=== PATIENT | male | born 1965 | race Caucasian/White ===

== ENCOUNTER 2023-02-20 14:19 | Inpatient (IN) | payer OTHER ==
--- OUTSIDE RECORDS SUMMARY | 2023-02-20 14:32 | XMS REPORT | Continuity of Care Document ---
:1965 Author Organization [facility] t Address [address] [place] [address] Care Team Providers Name Role Phone Gena SJGenoveva Primary Care Physician Unavailable KRYSTYNA JOHNSON Attending Clinician Unavailable DAX PRADO Attending Clinician Unavailable LARA ROGERS Attending Clinician Unavailable ROGELIO OJEDA Attending Clinician Unavailable CARLOS NOEL Attending Clinician Unavailable PARRISH HALE Attending Clinician Unavailable LAB90 Attending Clinician Unavailable 1, [facility] TOMOGRAPHY Attending Clinician UnavailLETHA Jones Attending Clinician Unavailable MD CARMENCITA Attending Clinician Unavailable ROBYN CONNELLY Attending Clinician Unavailable Doctor Unassigned, [place] Attending Clinician Unavailable BEVERLY SMITH Attending Clinician Unavailable DIRK BLANC Attending Clinician Unavailable NAOMY CONN Attending Clinician Unavailable [facility] Attending Clinician UnavailLetha Jones MD Attending Clinician [phone] Rogelio Ojeda MD Attending Clinician TOMOGRAPHY, [facility] OPTICAL COHERENCE Attending Clinician UnaDirk Amador MD Attending Clinician LAB47 Attending Clinician Unavailable Krystyna Johnson DO Attending Clinician NATALIE BACA Attending Clinician Unavailable PL, TECH 1 Attending Clinician Unavailable LAWANDA LYLES Attending Clinician Unavailable Lawanda Lyles PA-C Attending Clinician Vazquez MCLAUGHLIN, Domenica Attending Clinician CHELLE CUTLER Attending Clinician Unavailable DOMENICA ARIAS Attending Clinician Unavailable TRED45 Attending Clinician Unavailable SWAB, FBMDC COVID SELF Attending Clinician Unavailable [id number]-LQU Attending Clinician Unavailable NARCISO GUPTA Attending Clinician Unavailable KAYLIE NICOLE Attending Clinician Unavailable Sadie MCLAUGHLIN, Carlos Avendaño Attending Clinician DIANA MARROQUIN Attending Clinician Unavailable GERARDO HALE Attending Clinician Unavailable Payers Payer Name Policy Type Policy Number Effective Date Expiration Date Oziel GILBERT MA DUAL 7 [id number] 2021 COMPLETE CAP(HMO 00:00:00 D-SNP OA) [facility] 6 [id number] 2021 00:00:00 KCA GOLD O 7 [id number] 2020 00:00:00 Problems Condition Condition Condition Status Onset Resolution Last Treating Co mments Source Name Details Category Date Date Treatment Clinician Date Well adult Well adult Disease Active K serenity exam exam 12-16 Seybold 00:00: - 00 Externa l Hypothyroi Hypothyroi Disease Active K serenity dism dism 12-16 Seybold (acquired) (acquired) 00:00: - 00 Externa l Sleep Sleep Disease Active Overview: Yanely apnea apnea 12-16 Formattin Seybold 00:00: g of this - 00 note Externa might be l different from the original. uses cpap Stage 5 Stage 5 Disease Active Overview: Yara ey chronic chronic 12-16 Formattin Seybo ld kidney kidney 00:00: g of this - disease disease 00 note Externa might be l different from the original. Nephrolog y-Dr. 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 3-23 Seybol d mellitus mellitus 00:00: - with with 00 Externa diabetic diabetic l neuropathy neuropathy Morbid Morbid Disease Active Yanely obesity obesity 3-23 Seybold with BMI with BMI 00:00: - of of 00 Externa 45.0-49.9, 45.0-49.9, l adult adult Stage 3a Stage 3a Disease Active Ricardose y chronic chronic 3-11 Seybold kidney kidney 00:00: - disease disease 00 Externa l Type 2 Type 2 Disease Active 2020-06 Yanely diabetes diabetes 0-11 Seybol d mellitus mellitus 00:00: - with stage with stage 00 Ex terna 5 chronic 5 chronic l kidney kidney disease disease not on not on chronic chronic dialysis, dialysis, with with long-term long-term current current use of use of insulin insulin Body mass Body mass Disease Active Ricardo sey index index 9-15 Seybold 40.0-44.9, 40.0-44.9, 00:00: adult adult 00 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 00 Low Pressure Boiler Tender 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, with eyes, with macular macular edema, edema, associated associated with type with type 2 diabetes 2 diabetes mellitus mellitus 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 00: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 both y of both eyes eyes associated associated with type with type 2 diabetes 2 diabetes mellitus mellitus Diabetic Diabetic Disease Active Ricardose y macular macular 9-07 Seybold edema of edema of 00:00: left eye left eye 00 with with retinopath retinopath y y associated associated with type with type 2 diabetes 2 diabetes mellitus mellitus 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 907 Se ybold rative rative 00: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 both y of both eyes eyes associated associated with type with type 2 diabetes 2 diabetes mellitus mellitus Diabetic Diabetic Disease Active [place] y macular macular 9 Seybold edema of edema of 00:00: left eye left eye 00 with with retinopath retinopath y y associated associated with type with type 2 diabetes 2 diabetes mellitus mellitus 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 diabetes 12-28 Seybol d mellitus mellitus 00:00: - with with 00 Externa hyperchole hyperchole l sterolemia sterolemia Essential Essential Disease Active Ricardo sey hypertensi hypertensi 12-28 Se ybold on on 00:00: - 00 Externa l Morbid Morbid Disease Active Yanely obesity obesity 12-28 Seybold 00:00: 00 CKD CKD Disease Active Yanely (chronic (chronic 12-28 Seybol d kidney kidney 00:00: disease) disease) 00 stage 3, stage 3, GFR 30-59 GFR 30-59 ml/min ml/min CHF CHF Disease Active Yanely (congestiv (congestiv 12-28 Se ybold e heart e heart 00:00: - failure) failure) 00 Low Pressure Boiler Tender a l Hypertensi Hypertensi Disease Active K elsey ve heart ve heart 12-28 Seybol d and renal and renal 00:00: - disease disease 00 Externa with with l congestive congestive heart heart failure failure Hyperchole Hyperchole Disease Active K elsey sterolemia sterolemia 12-28 Se ybold 00:00: - 00 Externa l Acute Acute Disease Active 2018-06 [facility] respirator respirator 1-05 [facility] y [facility] y [place] [facility] Morbid Morbid Disease Active 2018-06 [facility] obesity obesity 1-05 ity of 00:00: [place] [facility] Hypertensi Hypertensi Disease Active 2018-06 [facility] n[facility] ve ve 1-05 [place] [place] emergency emergency [place] [facility] Acute Acute Disease Active 2018-06 [facility] diastolic diastolic 105 [facility]y of congestive [place]ive [place] [facility] failure failure Branch KEVIN on KEVIN on Disease Active 2018-06 [facility] CPAP CPAP 1-05 ity of 00:00: [place] 00 [facility] Stage 3 Stage 3 Disease Active 2018-06 [facility] chronic chronic 06-09 ity of kidney kidney 00:00: [place] disease disease Medical [facility] IDDM IDDM Disease Active 2018-06 [facility] (insulin (insulin 06-09 [place] of dependent dependent [place] diabetes 00 Medica l mellitus) mellitus) Bran ch HELEN (acute HELEN (acute Disease Active 2018-06 U nivers kidney kidney 06-09 ity of injury) injury) 00:00: [place] 00 [facility] Morbid Morbid Disease Active 2018-06 [facility] obesity obesity -05 [facility] of with body with body [place] mass [place] mass index 00 Me dical of of Branch 40.0-49.9 40.0-49.9 Allergies, Adverse Reactions, Alerts Allergy Allergy Status Severity Reaction(s) Onset Inactive Treating Comm ents Source Name Type Date Date Clinician NO KNOWN Drug Active Univers ALLERGIE Class ity of [facility] Social History Social Habit Start Date Stop Date Quantity Comments Source Gender identity 2021-05-19 Identifies as male Christos serenity Jarrett 17:46:57 gender (finding) - Low Pressure Boiler Tender al Sexual orientation 2021-05-19 Heterosexual Yara Jarrett 17:46:57 (finding) - External History of tobacco Chews Tobacco Ricardo Jarrett use - External Exposure to Not sure Yanely thomas SARS-CoV-2 (event) Alcohol intake 2023-02-02 2023-02-02 Ex-drinker Yanely taylor 00:00:00 00:00:00 (finding) - External Tobacco use and 2022-12-16 2022-12-16 User of smokeless Ke sandor Jarrett exposure 00:00:00 00:00:00 tobacco - External History of Social 2022-12-16 2022-12-16 Yanely Jarrett function 00:00:00 00:00:00 - External Education 2022-12-16 2022-12-16 13 Yanely Jarrtet 00:00:00 00:00:00 - External Alcohol Comment 2022-12-16 2022-12-16 Quit many years Yara Jarrett 00:00:00 00:00:00 ago, 1997 - External Sex [birth year] At [birth year] M Yanely mathias 00:00:00 00:00:00 - External Smoking Status Start Date Stop Date Source Never smoked tobacco Yanely [place] old - External Ex-smoker 2019-04-09 00:00:00 2019-04-09 00:00:00 [facility] Medications Ordered Filled Start Stop Current Ordering Indication Dosage Frequency Signature Comments Components Source Medication Medication Date Date Medication? Clinician (SIG) Name Name METAMUCIL Yes 2{tbl} Take 2 Yara ey FIBER OR 8-31 tablets by Seybo ld 09:34: mouth 3 - 24 times Externa daily l Turmeric Yes 1{capsu Take 1 Yara ey 500 MG oral 8-31 le} capsule by Se ybold Capsule 09:34: mouth - 24 daily Externa l Cranberry Yes 1{capsu Take 1 Ricardo sey 450 MG oral 8-31 le} capsule by Se ybold Capsule 09:34: mouth 2 - 24 times Externa daily l Cholecalcif Yes 1{capsu Take 1 K elsey lacey 8-31 le} capsule by Seybold (Vitamin 09:34: mouth - D3) 25 MCG 24 daily Externa (1000 UT) l oral Capsule Ferrous Yes 325mg Take 1 Yanely Sulfate 8-31 tablet Seybold (Iron) 325 09:34: (325 mg - (65 Fe) MG 24 total) by Exte rna oral Tablet mouth l daily (with breakfast) . Coenzyme Yes 1{capsu Take 1 Yara ey Q10 (Co 8-31 le} capsule by Seybol d Q-10) 100 09:34: mouth - MG oral 24 daily. Externa Capsule l Pamela, Yes 1{capsu Take 1 Kelse y Zingiber 8-31 le} capsule by Seybo ld officinalis 09:34: mouth - , (Pamela 24 daily. Externa Root) 550 l MG oral Capsule Ginkgo Yes 1{capsu Take 1 Yanely Biloba 120 8-31 le} capsule by Sey bold MG oral 09:34: mouth - Capsule 24 daily. Externa l Magnesium Yes 1{capsu Take 1 Ricardo sey 500 MG oral 8-31 le} capsule by Se ybold Capsule 09:34: mouth - 24 daily. Externa l Magnesium 2022-0 Yes 296mL Take 296 Ricardo sey Citrate 8-31 mL by Seybold oral 09:34: mouth - Solution 24 once. Externa l Multiple 2022-0 Yes [id number] 1{tbl} Take 1 K elsey Vitamin 8-31 tablet by Seybold (MULTI 09:34: mouth - VITAMIN 24 nightly Externa MENS OR) l Sodium 2022-0 Yes 650mg Take 1 Yanely Bicarbonate 8-31 tablet Seybol d 650 MG oral 09:34: (650 mg - Tablet 24 total) by Externa mouth 3 l times daily. predniSONE 2022-0 Yes 1 po tid Ricardo sey (DELTASONE) 8-31 for 7 Seybold 10 MG oral 00:00: days, 1 po - tablet 00 bid for 7 Externa days, 1 po l daily for 7 days, 1 po every other day until finished. Fluocinolon 2022-0 Yes 3 drops Ricardo sey e Acetonide 8-31 each ear Seyb old (DermOtic) 00:00: bid prn. - 0.01 % otic 00 Externa Oil l Magnesium 2022-0 Yes 296mL Take 296 Ricardo sey Citrate 8-28 mL by Seybold oral 08:55: mouth - Solution 31 once. Externa l Multiple 2022-0 Yes [id number] 1{tbl} Take 1 K elsey Vitamin 8-28 tablet by Seybold (MULTI 08:55: mouth - VITAMIN 31 nightly Externa MENS OR) l Sodium 2022-0 Yes 650mg Take 1 Yanely Bicarbonate 8-28 tablet Seybol d 650 MG oral 08:55: (650 mg - Tablet 31 total) by Externa mouth 3 l times daily. METAMUCIL 2022-0 Yes 2{tbl} Take 2 Yara ey FIBER OR 8-28 tablets by Seybo ld 08:55: mouth 3 - 31 times Externa daily l Turmeric 2022-0 Yes 1{capsu Take 1 Yara ey 500 MG oral 8-28 le} capsule by Se ybold Capsule 08:55: mouth - 31 daily Externa l Cranberry 2022-0 Yes 1{capsu Take 1 Ricardo sey 450 MG oral 8-28 le} capsule by Se ybold Capsule 08:55: mouth 2 - 31 times Externa daily l Cholecalcif 2023-0 Yes 1{capsu Take 1 K elsey lacey 8-28 le} capsule by Luiza (Vitamin 08:55: mouth - D3) 25 MCG 31 daily Externa (1000 UT) l oral Capsule Ferrous 2023-0 Yes 325mg Take 1 Yanely Sulfate 8-28 tablet ybold (Iron) 325 08:55: (325 mg - (65 Fe) MG 31 total) by Exte rna oral Tablet mouth l daily (with breakfast) . Allopurinol 2023-0 Yes 100mg TAKE ONE K elsey 100 MG oral 8-25 TABLET BY Sey bold Tablet 00:00: MOUTH - 00 DAILY Externa l Allopurinol 2023-0 Yes 100mg TAKE ONE K elsey 100 MG oral 8-25 TABLET BY Sey bold Tablet 00:00: MOUTH - 00 DAILY Externa l Magnesium 2023-0 Yes 296mL Take 296 Ricardo sey Citrate 8-21 mL by Seybold oral 09:08: mouth - Solution 52 once. Externa l Multiple 3-0 Yes [id number] 1{tbl} Take 1 K elsey Vitamin 8-21 tablet by Luiza (MULTI 09:08: mouth - VITAMIN 52 nightly Externa MENS OR) l Sodium 2023-0 Yes 650mg Take 1 Yanely Bicarbonate 8-21 tablet ybol d 650 MG oral 09:08: (650 mg - Tablet 52 total) by Externa mouth 3 l times daily. METAMUCIL 2023-0 Yes 2{tbl} Take 2 Yara ey FIBER OR 8-21 tablets by Zacheryo ld 09:08: mouth 3 - 52 times Externa daily l Turmeric 2023-0 Yes 1{capsu Take 1 Yara ey 500 MG oral 8-21 le} capsule by Se ybold Capsule 09:08: mouth - 52 daily Externa l Cranberry 2023-0 Yes 1{capsu Take 1 Ricardo sey 450 MG oral 8-21 le} capsule by Se ybold Capsule 09:08: mouth 2 - 52 times Externa daily l Cholecalcif 2023-0 Yes 1{capsu Take 1 K elsey lacey 8-21 le} capsule by Luiza (Vitamin 09:08: mouth - D3) 25 MCG 52 daily Externa (1000 UT) l oral Capsule Ferrous 3-0 Yes 325mg Take 1 Yanely Sulfate 8-21 tablet Seybold (Iron) 325 09:08: (325 mg - (65 Fe) MG 52 total) by Exte rna oral Tablet mouth l daily (with breakfast) . Carvedilol 2022-0 Yes [id number] TAKE ONE Yanely 25 MG oral 7-24 TABLET BY Seyb old Tablet 00:00: MOUTH - 00 TWICE A Externa DAY WITH l MEALS Carvedilol 3-0 Yes [id number] TAKE ONE Yanely 25 MG oral 7-24 TABLET BY Seyb old Tablet 00:00: MOUTH - 00 TWICE A Externa DAY WITH l MEALS Carvedilol 2022-0 Yes [id number] TAKE ONE Yanely 25 MG oral 7-24 TABLET BY Seyb old Tablet 00:00: MOUTH - 00 TWICE A Externa DAY WITH l MEALS Silverthorne-3 2022-0 2023- No [id number] 1{capsu Take 1 Yanely Fatty Acids 7-14 07-14 le} capsule by Oziel macias (Fish Oil 09:19: 00:00 mouth - Concentrate 37 :00 daily Externa ) 300 MG l oral Capsule Ergocalcife 2022-0 2023- No [id number] Take Ricardo sey rol 1.25 MG 7-14 07-14 50,000 Seybo ld (93231 UT) 09:19: 00:00 units by - oral 37 :00 mouth once Externa Capsule a week l Ferrous 2022-0 Yes 325mg Take 1 Yanely Sulfate 7-14 tablet Seybold (Iron) 325 09:07: (325 mg - (65 Fe) MG 04 total) by Exte rna oral Tablet mouth l daily (with breakfast) Cholecalcif 2022-0 Yes 1{capsu Take 1 K elsey lacey 7-14 le} capsule by Seybold (Vitamin 09:06: mouth - D3) 25 MCG 49 daily Externa (1000 UT) l oral Capsule Cranberry 2022-0 Yes 1{capsu Take 1 Ricardo sey 450 MG oral 7-14 le} capsule by Se ybold Capsule 09:06: mouth 2 - 16 times Externa daily l Turmeric 2022-0 Yes 1{capsu Take 1 Yara ey 500 MG oral 7-14 le} capsule by Se ybold Capsule 09:05: mouth - 42 daily Externa l METAMUCIL Yes 2{tbl} Take 2 Yara ey FIBER OR 7-14 tablets by Seybo ld 09:04: mouth 3 - 41 times Externa daily l Amlodipine 2022-0 2022- No 5mg Take 1 Yara ey Besylate 7-14 07-14 tablet (5 Seybo ld (NORVASC) 5 08:48: 00:00 mg total) - MG oral 14 :00 by mouth 2 Low Pressure Boiler Tender a Tablet times l daily Take 2 tabs orally daily Insulin Yes [id number] 75 units Ke lsey Glargine 7-14 SQ nightly Seybo ld (Basaglar 00:00: - KwikPen) 00 Externa 100 UNIT/ML l subcutaneou s Solution Pen-injecto r Insulin Yes [id number] INJECT Yara ey Aspart 7-14 UNDER THE Seybold (NovoLOG) 00:00: SKIN 20 - 100 UNIT/ML 00 UNITS Externa injection THREE l Solution TIMES A DAY BEFORE MAJOR MEALS Ergocalcife Yes [id number] 25156W Take 1 Yanely rol 1.25 MG 7-14 capsule Seybo ld (91506 UT) 00:00: (50,000 - oral 00 units Externa Capsule total) by l mouth once a month Isosorbide Yes [id number] 30mg Take 1 Yanely Mononitrate 7-14 tablet (30 Se ybold CR 30 MG 00:00: mg total) - oral TABLET 00 by mouth Exte rna SR 24 HR daily l Furosemide 0 Yes [id number] 60mg Take 1.5 Yanely 40 MG oral 7-14 tablets Seybol d Tablet 00:00: (60 mg - 00 total) by Externa mouth 2 l times daily Silverthorne-3 Yes [id number] 1{capsu Take 1 K elsey Fatty Acids 7-14 le} capsule by Se ybold (Fish Oil 00:00: mouth 2 - Concentrate 00 times Externa ) 300 MG daily l oral Capsule Insulin Yes [id number] 75 units Ke lsey Glargine 7-14 SQ nightly Seybo ld (Basaglar 00:00: - KwikPen) 00 Externa 100 UNIT/ML l subcutaneou s Solution Pen-injecto r Insulin 2022-0 Yes [id number] INJECT Yara ey Aspart 7-14 UNDER THE Seybold (NovoLOG) 00:00: SKIN 20 - 100 UNIT/ML 00 UNITS Externa injection THREE l Solution TIMES A DAY BEFORE MAJOR MEALS Ergocalcife 2022-0 Yes [id number] Take 1 Yanely rol 1.25 MG 7-14 capsule Seybo ld (44312 UT) 00:00: (50,000 - oral 00 units Externa Capsule total) by l mouth once a month Isosorbide 2023-0 Yes [id number] 30mg Take 1 Yanely Mononitrate 7-14 tablet (30 Se ybold CR 30 MG 00:00: mg total) - oral TABLET 00 by mouth Exte rna SR 24 HR daily l Furosemide 3-0 Yes [id number] 60mg Take 1.5 Yanely 40 MG oral 7-14 tablets Seybol d Tablet 00:00: (60 mg - 00 total) by Externa mouth 2 l times daily [place]orne-3 2022-0 Yes [id number] 1{capsu Take 1 K elsey Fatty Acids 7-14 le} capsule by Se ybold (Fish Oil 00:00: mouth 2 - Concentrate 00 times Externa ) 300 MG daily l oral Capsule Insulin 2022-0 Yes [id number] 75 units Ke lsey Glargine 7-14 SQ nightly Seybo ld (Basaglar 00:00: - KwikPen) 00 Externa 100 UNIT/ML l subcutaneou s Solution Pen-injecto r Insulin 2022-0 Yes [id number] INJECT Yara ey Aspart 7-14 UNDER THE Seybold (NovoLOG) 00:00: SKIN 20 - 100 UNIT/ML 00 UNITS Externa injection THREE l Solution TIMES A DAY BEFORE MAJOR MEALS Ergocalcife 2022-0 Yes [id number] Take 1 Yanely rol 1.25 MG 7-14 capsule Seybo ld (13840 UT) 00:00: (50,000 - oral 00 units Externa Capsule total) by l mouth once a month Isosorbide 2023-0 Yes [id number] 30mg Take 1 Yanely Mononitrate 7-14 tablet (30 Se ybold CR 30 MG 00:00: mg total) - oral TABLET 00 by mouth Exte rna SR 24 HR daily l Furosemide 2023-0 Yes [id number] 60mg Take 1.5 Yanely 40 MG oral 7-14 tablets Seybol d Tablet 00:00: (60 mg - 00 total) by Externa mouth 2 l times daily [place]-3 Yes [id number] 1{capsu Take 1 K elsey Fatty Acids 7-14 le} capsule by Se alexold (Fish Oil 00:00: mouth 2 - Concentrate 00 times Externa ) 300 MG daily l oral Capsule Insulin Yes [id number] 75 units Ke lsey Glargine 7-14 SQ nightly Seybo ld (Basaglar 00:00: - KwikPen) 00 Externa 100 UNIT/ML l subcutaneou s Solution Pen-injecto r Insulin Yes [id number] INJECT Yara ey Aspart 7-14 UNDER THE Seybold (NovoLOG) 00:00: SKIN 20 - 100 UNIT/ML 00 UNITS Externa injection THREE l Solution TIMES A DAY BEFORE MAJOR MEALS Ergocalcife Yes [id number] Take 1 Yanely rol 1.25 MG 7-14 capsule Seybo ld (78005 UT) 00:00: (50,000 - oral 00 units Externa Capsule total) by l mouth once a month Isosorbide Yes [id number] 30mg Take 1 Yanely Mononitrate 7-14 tablet (30 Se ybold CR 30 MG 00:00: mg total) - oral TABLET 00 by mouth Exte rna SR 24 HR daily l Furosemide Yes [id number] 60mg Take 1.5 Yanely 40 MG oral 7-14 tablets Seybol d Tablet 00:00: (60 mg - 00 total) by Externa mouth 2 l times daily [place]-3 Yes [id number] 1{capsu Take 1 K elsey Fatty Acids 7-14 le} capsule by Se ybold (Fish Oil 00:00: mouth 2 - Concentrate 00 times Externa ) 300 MG daily l oral Capsule Zoster Vac 0 2022- No [id number] 50ug Inject 0.5 Yanely Recomb 7-14 08-21 mL (50 mcg Seybol d Adjuvanted 00:00: 00:00 total) - (Shingrix) 00 :00 into the Exter na 50 MCG/0.5 muscle l mL once for 1 Intramuscul dose ar Recon Suspension Azithromyci 2022- No [id number] Take 2 Yanely n 250 MG 12-16 08-21 tablets by Seyb old oral Tablet 00:00: 00:00 mouth on - 00 :00 day 1 then Externa 1 tablet l by mouth daily for 4 days thereafter . Azithromyci 2022- Yes [id number] Take 2 Yanely n 250 MG 12-16 07-20 tablets by Seyb old oral Tablet 00:00: 04:59 mouth on - 00 :00 day 1 then Externa 1 tablet l by mouth daily for 4 days thereafter . Zoster Vac 2022- Yes [id number] 50ug Inject 0.5 Yanely Recomb 12-16 07-15 mL (50 mcg Seybol d Adjuvanted 00:00: 04:59 total) - (Shingrix) 00 :00 into the Exter na 50 MCG/0.5 muscle l mL once for 1 Intramuscul dose ar Recon Suspension Isosorbide 2022- No Yanely Mononitrate 12-1514 Seybold CR 30 MG 00:00: 00:00 - oral TABLET 00 :00 Externa SR 24 HR l Continuous Yes [id number] Check BS Yanely Blood Gluc 5-23 in the am Seyb old Transmit 00:00: fasting, - (Dexcom G5 00 before Externa Mobile meals and l Transmitter as needed. ) does not apply Misc Empaglifloz Yes [id number] 1 tablet Yanely in 5-23 po Q daily Seybold (Jardiance) 00:00: - 10 MG oral 00 Externa Tablet l Gabapentin Yes [id number] 100mg Take 1 Yanely 100 MG oral 5-23 capsule Seybo ld Capsule 00:00: (100 mg - 00 total) by Externa mouth 3 l times daily Insulin Pen Yes [id number] Takes K elsey Needle 31G 5-23 insulin Seybol d X 5 MM does 00:00: QID - not apply 00 Externa Misc l Levothyroxi Yes [id number] 50ug Take 1 Yanely ne Sodium 5-23 tablet (50 Seyb old 50 MCG oral 00:00: mcg total) - Tablet 00 by mouth Externa daily l Pravastatin 2022-0 Yes [id number] 40mg Take 1 Yanely Sodium 40 5-23 tablet (40 Seyb old MG oral 00:00: mg total) - Tablet 00 by mouth Externa nightly AT l BEDTIME Continuous 0 Yes [id number] Check BS Yanely Blood Gluc 5-23 in the am Seyb old Transmit 00:00: fasting, - (Dexcom G5 00 before Externa Mobile meals and l Transmitter as needed. ) does not apply Misc Empaglifloz 0 Yes [id number] 1 tablet Yanely in 5-23 po Q daily Seybold (Jardiance) 00:00: - 10 MG oral 00 Externa Tablet l Gabapentin 0 Yes [id number] 100mg Take 1 Yanely 100 MG oral 5-23 capsule Seybo ld Capsule 00:00: (100 mg - 00 total) by Externa mouth 3 l times daily Insulin Pen 0 Yes [id number] Takes K elsey Needle 31G 5-23 insulin Seybol d X 5 MM does 00:00: QID - not apply 00 Externa Misc l Levothyroxi 0 Yes [id number] 50ug Take 1 Yanely ne Sodium 5-23 tablet (50 Seyb old 50 MCG oral 00:00: mcg total) - Tablet 00 by mouth Externa daily l Pravastatin 0 Yes [id number] 40mg Take 1 Yanely Sodium 40 5-23 tablet (40 Seyb old MG oral 00:00: mg total) - Tablet 00 by mouth Externa nightly AT l BEDTIME Continuous 0 Yes [id number] Check BS Yanely Blood Gluc 5-23 in the am Seyb old Transmit 00:00: fasting, - (Dexcom G5 00 before Externa Mobile meals and l Transmitter as needed. ) does not apply Misc Empaglifloz 2022-0 Yes [id number] 1 tablet Yanely in 5-23 po Q daily Seybold (Jardiance) 00:00: - 10 MG oral 00 Externa Tablet l Gabapentin 2022-0 Yes [id number] 100mg Take 1 Yanely 100 MG oral 5-23 capsule Seybo ld Capsule 00:00: (100 mg - 00 total) by Externa mouth 3 l times daily Insulin Pen 2022-0 Yes [id number] Takes K elsey Needle 31G 5-23 insulin Seybol d X 5 MM does 00:00: QID - not apply 00 Externa Misc l Levothyroxi Yes [id number] 50ug Take 1 Yanely ne Sodium 5-23 tablet (50 Seyb old 50 MCG oral 00:00: mcg total) - Tablet 00 by mouth Externa daily l Pravastatin Yes [id number] 40mg Take 1 Yanely Sodium 40 5-23 tablet (40 Seyb old MG oral 00:00: mg total) - Tablet 00 by mouth Externa nightly AT l BEDTIME Continuous Yes [id number] Check BS Yanely Blood Gluc 5-23 in the am Seyb old Transmit 00:00: fasting, - (Dexcom G5 00 before Externa Mobile meals and l Transmitter as needed. ) does not apply Misc Empaglifloz Yes [id number] 1 tablet Yanely in 5-23 po Q daily Seybold (Jardiance) 00:00: - 10 MG oral 00 Externa Tablet l Gabapentin Yes [id number] 100mg Take 1 Yanely 100 MG oral 5-23 capsule Seybo ld Capsule 00:00: (100 mg - 00 total) by Externa mouth 3 l times daily Insulin Pen Yes [id number] Takes K elsey Needle 31G 5-23 insulin Seybol d X 5 MM does 00:00: QID - not apply 00 Externa Misc l Levothyroxi Yes [id number] 50ug Take 1 Yanely ne Sodium 5-23 tablet (50 Seyb old 50 MCG oral 00:00: mcg total) - Tablet 00 by mouth Externa daily l Pravastatin Yes [id number] 40mg Take 1 Yanely Sodium 40 5-23 tablet (40 Seyb old MG oral 00:00: mg total) - Tablet 00 by mouth Externa nightly AT l BEDTIME Insulin 2022-0 2022- No [id number] INJECT Ricardo sey Aspart - 07-14 UNDER THE Seybold (NovoLOG) 00:00: 00:00 SKIN 15 - 100 UNIT/ML 00 :00 UNITS Externa injection THREE l Solution TIMES A DAY BEFORE MAJOR MEALS Insulin 2022-0 2022- No [id number] 85 units K elsey Glargine 5-23 07-14 SQ nightly Seyb old (Basaglar 00:00: 00:00 - KwikPen) 00 :00 Externa 100 UNIT/ML l subcutaneou s Solution Pen-injecto r Carvedilol 0 Yes [id number] TAKE ONE Yanely 25 MG oral 4-14 TABLET BY Seyb old Tablet 00:00: MOUTH - 00 TWICE A Externa DAY WITH l MEALS Allopurinol 2022-0 2022- No [id number] TAKE ONE Yanely 100 MG oral 3-06 07-14 TABLET BY Se ybold Tablet 00:00: 00:00 MOUTH - 00 :00 DAILY Externa l Magnesium 0 Yes 296mL Take 296 Ricardo sey Citrate 2-16 mL by Seybold oral 14:09: mouth once - Solution 58 Externa l [place]thorne-3 2022-0 Yes [id number] 1{capsu Take 1 K elsey Fatty Acids 2-16 le} capsule by Se ybold (Fish Oil 14:09: mouth - Concentrate 58 daily Externa ) 300 MG l oral Capsule Multiple 0 Yes [id number] 1{tbl} Take 1 K elsey Vitamin 2-16 tablet by Seybold (MULTI 14:09: mouth - VITAMIN 58 nightly Externa MENS OR) l Ergocalcife 0 Yes [id number] Take Yara ey rol 1.25 MG 2-16 50,000 Seybol d ([id number] UT) 14:09: units by - oral 58 mouth once Externa Capsule a week l Sodium 2022-0 Yes 650mg Take 650 Yanely Bicarbonate 2-16 mg by Seybold 650 MG oral 14:09: mouth 3 - Tablet 58 times Externa daily l Magnesium 2022-0 Yes 296mL Take 296 Ricardo sey Citrate 2-16 mL by Seybold oral 14:09: mouth once - Solution 58 Externa l Multiple 2022-0 Yes [id number] 1{tbl} Take 1 K elsey Vitamin 2-16 tablet by Seybold (MULTI 14:09: mouth - VITAMIN 58 nightly Externa MENS OR) l Sodium 2022-0 Yes 650mg Take 650 Yanely Bicarbonate 2-16 mg by Seybold 650 MG oral 14:09: mouth 3 - Tablet 58 times Externa daily l Continuous 2022-0 Yes [id number] Check BS Yanely Blood Gluc 2-16 in the am Seyb old [employer] 00:00: fasting, - (Dexcom G5 00 before Externa [employer] meals and l Kit) does as needed. not apply Device Continuous Yes [id number] Check BS Yanely Blood Gluc 2-16 in the am Seyb old [employer] 00:00: fasting, - (Dexcom G5 00 before Externa [employer] meals and l Kit) does as needed. not apply Device Continuous Yes [id number] Check BS Yanely Blood Gluc 2-16 in the am Seyb old Transmit 00:00: fasting, - (Dexcom G5 00 before Externa Mobile meals and l Transmitter as needed. ) does not apply Misc Continuous Yes [id number] Check BS Yanely Blood Gluc 2-16 in the am Seyb old [employer] 00:00: fasting, - (Dexcom G5 00 before Externa [employer] meals and l Kit) does as needed. not apply Device Continuous Yes [id number] Check BS Yanely Blood Gluc 2-16 in the am Seyb old [employer] 00:00: fasting, - (Dexcom G5 00 before Externa [employer] meals and l Kit) does as needed. not apply Device Continuous Yes [id number] Check BS Yanely Blood Gluc 2-16 in the am Seyb old [employer] 00:00: fasting, - (Dexcom G5 00 before Externa [employer] meals and l Kit) does as needed. not apply Device Azithromyci 2022- No [id number] Take 2 Yanely n 250 MG 2-16 02-22 tablets by Seyb old oral Tablet 00:00: 05:59 mouth on - 00 :00 day 1 then Externa 1 tablet l by mouth daily for 4 days thereafter . Amlodipine Yes Yanely Besylate 2-10 Seybold (NORVASC) 5 00:00: - MG oral 00 Externa Tablet l Ostomy Yes Use as Yanely Supplies 1-24 directed Seybold (Skin Tac 00:00: for - Adhesive 00 continuous Exter na Barrier glucose l Wipe) does monitoring not apply with Halle Misc system Ostomy Yes Use as Yanely Supplies 1-24 directed Seybold (Skin Tac 00:00: for - Adhesive 00 continuous Exter na Barrier glucose l Wipe) does monitoring not apply with Halle Misc system Ostomy Yes Use as Yanely Supplies 24 directed Seybold (Skin Tac 00:00: for - Adhesive 00 continuous Exter na Barrier glucose l Wipe) does monitoring not apply with Halle Misc system Ostomy Yes Use as Yanely Supplies 24 directed Seybold (Skin Tac 00:00: for - Adhesive 00 continuous Exter na Barrier glucose l Wipe) does monitoring not apply with Halle Misc system Ostomy Yes Use as Yanely Supplies 24 directed Seybold (Skin Tac 00:00: for - Adhesive 00 continuous Exter na Barrier glucose l Wipe) does monitoring not apply with Halle Misc system Continuous 2022- No Use as Yara ey Blood Gluc 06-28 directed Seyb old Sensor 00:00: 00:00 for - (FreeStyle 00 :00 continuous Ext winifred Halle 14 glucose l Day Sensor) monitoring does not with Halle apply Misc sytem Glucose 2022- No Use as Yanely Blood 06-28 directed Seybold (FreeStyle 00:00: 00:00 for - Precision 00 :00 continuous Exte rna Isai Test) glucose l in vitro monitoring Strip with Halle system Levothyroxi Yes [id number] 50ug Take 1 Yanely ne Sodium 1-17 tablet (50 Seyb old 50 MCG oral 00:00: mcg total) - Tablet 00 by mouth Externa daily l Magnesium 2021-06 Yes 296mL Take 296 Ricardo sey Citrate 2-12 mL by Seybold oral 10:45: mouth once - Solution 13 Externa l [place]orne-3 2021-06 Yes [id number] 1{capsu Take 1 K elsey Fatty Acids 2-12 le} capsule by Se ybold (Fish Oil 10:45: mouth - Concentrate 13 daily Externa ) 300 MG l oral Capsule Multiple 2021-06 Yes [id number] 1{tbl} Take 1 K elsey Vitamin 2-12 tablet by Seybold (MULTI 10:45: mouth - VITAMIN 13 nightly Externa MENS OR) l Ergocalcife 2021-06 Yes [id number] Take Yara salcedo rol 1.25 MG 2-12 50,000 Seybol d ([id number] UT) 10:45: units by - oral 13 mouth once Externa Capsule a week l Sodium 2021-06 Yes 650mg Take 650 Yanely Bicarbonate 2-12 mg by Seybold 650 MG oral 10:45: mouth 3 - Tablet 13 times Externa daily l Fenugreek 2021-06- No 2{capsu Take 2 Ke lsey 500 MG oral 2-12 12-12 le} capsules Sey bold Capsule 10:44: 00:00 by mouth 2 - 10 :00 times Externa daily l Biotin 5 MG 2021-06- No 1{capsu Take 1 Yanely oral 2-12 12-12 le} capsule by Seybold Capsule 10:43: 00:00 mouth - 59 :00 daily Externa l Insulin 2021-06 Yes [id number] 75 units Ke lsey Glargine 2-12 SQ nightly Seybo ld (Basaglar 00:00: - KwikPen) 00 Externa 100 UNIT/ML l subcutaneou s Solution Pen-injecto r Insulin Pen 2021-06 Yes [id number] Takes K elsey Needle 31G 2-12 insulin Seybol d X 5 MM does 00:00: QID - not apply 00 Externa Misc l Empaglifloz 2021-06 Yes [id number] 1 tablet Yanely in 2-12 po Q daily Seybold (Jardiance) 00:00: - 10 MG oral 00 Externa Tablet l Insulin 2021-06 Yes [id number] 75 units Ke lsey Glargine 2-12 SQ nightly Seybo ld (Basaglar 00:00: - KwikPen) 00 Externa 100 UNIT/ML l subcutaneou s Solution Pen-injecto r Insulin Pen 2021-06 Yes [id number] Takes K elsey Needle 31G 2-12 insulin Seybol d X 5 MM does 00:00: QID - not apply 00 Externa Misc l Empaglifloz 2021-06 Yes [id number] 1 tablet Yanely in 2-12 po Q daily Seybold (Jardiance) 00:00: - 10 MG oral 00 Externa Tablet l Clonidine 2021-06 Yes [id number] .2mg Take 1 Ke lsey (CATAPRES) 1-22 tablet Seybold 0.2 MG oral 00:00: (0.2 mg - Tablet 00 total) by Externa mouth 3 l times daily. Clonidine 2021-06 Yes [id number] Yara ey (CATAPRES) 1-22 Seybold 0.2 MG oral 00:00: - Tablet 00 Externa l Furosemide 2021-06 Yes [id number] Ricardo sey 80 MG oral 1-22 Seybold Tablet 00:00: - 00 Externa l Clonidine 2021-06 Yes [id number] .2mg Take 0.2 Yanely (CATAPRES) 1-22 mg by Seybold 0.2 MG oral 00:00: mouth 3 - Tablet 00 times Externa daily l Clonidine 2021-06 Yes [id number] .2mg Take 0.2 Yanely (CATAPRES) 1-22 mg by Seybold 0.2 MG oral 00:00: mouth 3 - Tablet 00 times Externa daily l Clonidine 2021-06 Yes [id number] .2mg Take 1 Ke lsey (CATAPRES) 1-22 tablet Seybold 0.2 MG oral 00:00: (0.2 mg - Tablet 00 total) by Externa mouth 3 l times daily. Clonidine 2021-06 Yes [id number] .2mg Take 1 Ke lsey (CATAPRES) 1-22 tablet Seybold 0.2 MG oral 00:00: (0.2 mg - Tablet 00 total) by Externa mouth 3 l times daily. Furosemide 2021-06- No [id number] Ke lsey 80 MG oral 06-26 02-16 Seybold Tablet 00:00: 00:00 - 00 :00 Externa l Bevacizumab 2021-06- No [id number] 1.25mg Yanely (AVASTIN) 06-22 Seybold 100 mg/4 mL 15:15: 15:32 - - Physician 00 :00 Externa Administere l d ([id number]) Bevacizumab 2021-06- No [id number] 1.25mg 1.25 mg, Yanely (AVASTIN) 06-22 Physician Seyb old 100 mg/4 mL 15:15: 15:32 Administer - - Physician 00 :00 ed, ONCE, Ext winifred Administere 1 dose, On l d ([id number]) 04/22/22 at 0915 Magnesium 2021-06 Yes 296mL Take 296 Ricardo sey Citrate 1-18 mL by Seybold oral 09:04: mouth once - Solution 34 Externa l Fenugreek 2021-06 Yes 2{capsu Take 2 Ricardo sey 500 MG oral 1-18 le} capsules Seyb old Capsule 09:04: by mouth 2 - 34 times Externa daily l [place]thorne-3 2021-06 Yes [id number] 1{capsu Take 1 K elsey Fatty Acids 1-18 le} capsule by Se ybold (Fish Oil 09:04: mouth - Concentrate 34 daily Externa ) 300 MG l oral Capsule Multiple 2021-06 Yes [id number] 1{tbl} Take 1 K elsey Vitamin 1-18 tablet by Seybold (MULTI 09:04: mouth - VITAMIN 34 nightly Externa MENS OR) l Ergocalcife 2021-06 Yes [id number] Take Yara ey rol 1.25 MG 1-18 50,000 Seybol d ([id number] UT) 09:04: units by - oral 34 mouth once Externa Capsule a week l Biotin 5 MG 2021-06 Yes 1{capsu Take 1 K elsey oral 1-18 le} capsule by Seybold Capsule 09:04: mouth - 34 daily Externa l Sodium 2021-06 Yes 650mg Take 650 Yanely Bicarbonate 1-18 mg by Seybold 650 MG oral 09:04: mouth 3 - Tablet 34 times Externa daily l Carvedilol 2021-06 Yes [id number] TAKE ONE Yanely 25 MG oral 0-28 TABLET BY Seyb old Tablet 00:00: MOUTH - 00 TWICE A Externa DAY WITH l MEALS Carvedilol 2021-06 Yes [id number] TAKE ONE Yanely 25 MG oral 0-28 TABLET BY Seyb old Tablet 00:00: MOUTH - 00 TWICE A Externa DAY WITH l MEALS Carvedilol 2021-06 Yes [id number] TAKE ONE Yanley 25 MG oral 0-28 TABLET BY Seyb old Tablet 00:00: MOUTH - 00 TWICE A Externa DAY WITH l MEALS Insulin 2021-06 Yes INJECT Yanely Aspart 0-10 UNDER THE Seybold (NovoLOG) 00:00: SKIN 15 - 100 UNIT/ML 00 UNITS Externa injection THREE l Solution TIMES DAILY BEFOFE MAJOR MEALS Insulin 2021-06 Yes INJECT Yanely Aspart 0-10 UNDER THE Seybold (NovoLOG) 00:00: SKIN 15 - 100 UNIT/ML 00 UNITS Externa injection THREE l Solution TIMES DAILY BEFOFE MAJOR MEALS Insulin 2021-06 Yes INJECT Yanely Aspart 0-10 UNDER THE Seybold (NovoLOG) 00:00: SKIN 15 - 100 UNIT/ML 00 UNITS Externa injection THREE l Solution TIMES DAILY BEFOFE MAJOR MEALS Bevacizumab 2021-06- No [id number] 1.25mg Yanely (AVASTIN) 0-07 10-07 Seybold 100 mg/4 mL 14:30: 14:20 - - Physician 00 :00 Externa Administere l d ([id number]) Bevacizumab 2021-06- No [id number] 1.25mg 1.25 mg, Yanely (AVASTIN) 0-07 10 Physician Seyb old 100 mg/4 mL 14:30: 14:20 Administer - - Physician 00 :00 ed, ONCE, Ext winifred Administere 1 dose, On l d ([id number]) Mon03/11/22 at 0930 Magnesium 2021-06 Yes 296mL Take 296 Ricardo sey Citrate 0-07 mL by Seybold oral 08:50: mouth once - Solution 12 Externa l Fenugreek 2021-06 Yes 2{capsu Take 2 Ricardo sey 500 MG oral 0-07 le} capsules yb old Capsule 08:50: by mouth 2 - 12 times Externa daily l [place]-3 2021-06 Yes [id number] 1{capsu Take 1 K elsey Fatty Acids 0-07 le} capsule by Se mathias (Fish Oil 08:50: mouth - Concentrate 12 daily Externa ) 300 MG l oral Capsule Multiple 2021-06 Yes [id number] 1{tbl} Take 1 K elsey Vitamin 0-07 tablet by Luiza (MULTI 08:50: mouth - VITAMIN 12 nightly Externa MENS OR) l Ergocalcife 2021-06 Yes [id number] Take Yara ey rol 1.25 MG 0-07 50,000 Seybol d (35052 UT) 08:50: units by - oral 12 mouth once Externa Capsule a week l Biotin 5 MG 2021-06 Yes 1{capsu Take 1 K elsey oral 0-07 le} capsule by Seybold Capsule 08:50: mouth - 12 daily Externa l Sodium 2021-06 Yes 650mg Take 650 Yanely Bicarbonate 0-07 mg by Seybold 650 MG oral 08:50: mouth 3 - Tablet 12 times Externa daily l Magnesium 2021-06 Yes 296mL Take 296 Ricardo sey Citrate 0-06 mL by Seybold oral 08:37: mouth once - Solution 32 Externa l Fenugreek 2021-06 Yes 2{capsu Take 2 Ricardo sey 500 MG oral 0-06 le} capsules Seyb old Capsule 08:37: by mouth 2 - 32 times Externa daily l [place]-3 2021-06 Yes [id number] 1{capsu Take 1 K elsey Fatty Acids 0-06 le} capsule by ybemmanuel (Fish Oil 08:37: mouth - Concentrate 32 daily Externa ) 300 MG l oral Capsule Multiple 2021-06 Yes [id number] 1{tbl} Take 1 K elsey Vitamin 0-06 tablet by Luiza (MULTI 08:37: mouth - VITAMIN 32 nightly Externa MENS OR) l Ergocalcife 2021-06 Yes [id number] Take Yara ey rol 1.25 MG 0-06 50,000 Seybol d (02170 UT) 08:37: units by - oral 32 mouth once Externa Capsule a week l Biotin 5 MG 2021-06 Yes 1{capsu Take 1 K elsey oral 0-06 le} capsule by Seybold Capsule 08:37: mouth - 32 daily Externa l Sodium 2021-06 Yes 650mg Take 650 Yanely Bicarbonate 0-06 mg by Seybold 650 MG oral 08:37: mouth 3 - Tablet 32 times Externa daily l Linzess 145 0 Yes [id number] TAKE ONE Yanely MCG oral 9-19 CAPSULE BY Seybo ld Capsule 00:00: MOUTH - 00 DAILY Externa l Linzess 145 2021-0 Yes [id number] TAKE ONE Yanely MCG oral 9-19 CAPSULE BY Seybo ld Capsule 00:00: MOUTH - 00 DAILY Externa l Linzess 145 2021-0 Yes [id number] TAKE ONE Yanely MCG oral 9-19 CAPSULE BY Seybo ld Capsule 00:00: MOUTH - 00 DAILY Externa l Linzess 145 2021-0 Yes [id number] TAKE ONE Yanely MCG oral 9-19 CAPSULE BY Seybo ld Capsule 00:00: MOUTH - 00 DAILY Externa l Linzess 145 2021-0 Yes [id number] TAKE ONE Yanely MCG oral 9-19 CAPSULE BY Seybo ld Capsule 00:00: MOUTH - 00 DAILY Externa l Linzess 145 2021-0 Yes [id number] TAKE ONE Yanely MCG oral 9-19 CAPSULE BY Seybo ld Capsule 00:00: MOUTH - 00 DAILY Externa l Linzess 145 2021-0 Yes [id number] TAKE ONE Yanely MCG oral 9-19 CAPSULE BY Seybo ld Capsule 00:00: MOUTH - 00 DAILY Externa l Linzess 145 2021-0 Yes [id number] TAKE ONE Yanely MCG oral 9-19 CAPSULE BY Seybo ld Capsule 00:00: MOUTH - 00 DAILY Externa l Linzess 145 2021-0 Yes [id number] TAKE ONE Yanely MCG oral 9-19 CAPSULE BY Seybo ld Capsule 00:00: MOUTH - 00 DAILY Externa l prednisoLON 2021-0 Yes 1[drp] Place 1 K elsey E Acetate 1 8-23 drop into Sey bold % 00:00: the left - ophthalmic 00 eye 4 Externa Suspension times l daily KETOROLAC 2021-0 Yes 1[drp] Place 1 Ricardo sey TROMETHAMIN 8-23 drop into Sey bold E, OPHTH, 00:00: the left - (Acular) 00 eye 4 Externa 0.5 % times l ophthalmic daily Solution Gatifloxaci 2021-0 Yes 1[drp] Place 1 K elsey n (Zymaxid) 8-23 drop into Sey bold 0.5 % 00:00: the left - ophthalmic 00 eye 4 Externa Solution times l daily prednisoLON 2021-0 Yes 1[drp] Place 1 K elsey E Acetate 1 8-23 drop into Sey bold % 00:00: the left - ophthalmic 00 eye 4 Externa Suspension times l daily KETOROLAC 2021-0 Yes 1[drp] Place 1 Ricardo sey TROMETHAMIN 8-23 drop into Sey bold E, OPHTH, 00:00: the left - (Acular) 00 eye 4 Externa 0.5 % times l ophthalmic daily Solution Gatifloxaci 2021-0 Yes 1[drp] Place 1 K elsey n (Zymaxid) 8-23 drop into Sey bold 0.5 % 00:00: the left - ophthalmic 00 eye 4 Externa Solution times l daily prednisoLON 0 Yes 1[drp] Place 1 K serenity Koehler Acetate 1 8-23 drop into Sey bold % 00:00: the left - ophthalmic 00 eye 4 Externa Suspension times l daily KETOROLAC Yes 1[drp] Place 1 Ricardo y TROMETHAMIN 8-23 drop into Sey bold E, OPHTH, 00:00: the left - (Acular) 00 eye 4 Externa 0.5 % times l ophthalmic daily Solution Gatifloxaci Yes 1[drp] Place 1 Christos benton n (Zymaxid) 8-23 drop into Sey bold 0.5 % 00:00: the left - ophthalmic 00 eye 4 Externa Solution times l daily prednisoLON 2021-0 2022- No 1[drp] Place 1 Yanely Koehler Acetate 1 8-23 12-12 drop into Se ybold % 00:00: 00:00 the left - ophthalmic 00 :00 eye 4 Externa Suspension times l daily KETOROLAC 2022- No 1[drp] Place 1 Adriano patten TROMETHAMIN 8-23 12-12 drop into Se ybold E, OPHTH, 00:00: 00:00 the left - (Acular) 00 :00 eye 4 Externa 0.5 % times l ophthalmic daily Solution Gatifloxaci 2021-0 2022- No 1[drp] Place 1 Yanely n (Zymaxid) 8-23 12-12 drop into Se ybold 0.5 % 00:00: 00:00 the left - ophthalmic 00 :00 eye 4 Externa Solution times l daily Empaglifloz Yes [id number] 1 tablet Yanely in 8-22 po Q daily Seybold (Jardiance) 00:00: - 10 MG oral 00 Externa Tablet l Gabapentin Yes [id number] 100mg Take 1 Yanely 100 MG oral 8-22 capsule Seybo ld Capsule 00:00: (100 mg - 00 total) by Externa mouth 3 l times daily Insulin Yes [id number] 85 units Ke lsey Glargine 8-22 SQ nightly Seybo ld (Basaglar 00:00: - KwikPen) 00 Externa 100 UNIT/ML l subcutaneou s Solution Pen-injecto r Insulin Pen Yes [id number] Takes K elsey Needle 31G 8-22 insulin Seybol d X 5 MM does 00:00: QID - not apply 00 Externa Misc l Pravastatin Yes [id number] 40mg Take 1 Yanely Sodium 40 8-22 tablet (40 Seyb old MG oral 00:00: mg total) - Tablet 00 by mouth Externa nightly AT l BEDTIME Empaglifloz Yes [id number] 1 tablet Yanely in 8-22 po Q daily Seybold (Jardiance) 00:00: - 10 MG oral 00 Externa Tablet l Gabapentin Yes [id number] 100mg Take 1 Yanely 100 MG oral 8-22 capsule Seybo ld Capsule 00:00: (100 mg - 00 total) by Externa mouth 3 l times daily Insulin Yes [id number] 85 units Ke lsey Glargine 8-22 SQ nightly Seybo ld (Basaglar 00:00: - KwikPen) 00 Externa 100 UNIT/ML l subcutaneou s Solution Pen-injecto r Insulin Pen Yes [id number] Takes K elsey Needle 31G 8-22 insulin Seybol d X 5 MM does 00:00: QID - not apply 00 Externa Misc l Pravastatin Yes [id number] 40mg Take 1 Yanely Sodium 40 8-22 tablet (40 Seyb old MG oral 00:00: mg total) - Tablet 00 by mouth Externa nightly AT l BEDTIME Empaglifloz Yes [id number] 1 tablet Yanely in 8-22 po Q daily Seybold (Jardiance) 00:00: - 10 MG oral 00 Externa Tablet l Gabapentin Yes [id number] 100mg Take 1 Yanely 100 MG oral 8-22 capsule Seybo ld Capsule 00:00: (100 mg - 00 total) by Externa mouth 3 l times daily Insulin Yes [id number] 85 units Ke lsey Glargine 8-22 SQ nightly Seybo ld (Basaglar 00:00: - KwikPen) 00 Externa 100 UNIT/ML l subcutaneou s Solution Pen-injecto r Insulin Pen Yes [id number] Takes K elsey Needle 31G 8-22 insulin Seybol d X 5 MM does 00:00: QID - not apply 00 Externa Misc l Pravastatin Yes [id number] 40mg Take 1 Yanely Sodium 40 8-22 tablet (40 Seyb old MG oral 00:00: mg total) - Tablet 00 by mouth Externa nightly AT l BEDTIME Gabapentin Yes [id number] 100mg Take 1 Yanely 100 MG oral 8-22 capsule Seybo ld Capsule 00:00: (100 mg - 00 total) by Externa mouth 3 l times daily Pravastatin Yes [id number] 40mg Take 1 Yanely Sodium 40 8-22 tablet (40 Seyb old MG oral 00:00: mg total) - Tablet 00 by mouth Externa nightly AT l BEDTIME Gabapentin Yes [id number] 100mg Take 1 Yanely 100 MG oral 8-22 capsule Seybo ld Capsule 00:00: (100 mg - 00 total) by Externa mouth 3 l times daily Pravastatin Yes [id number] 40mg Take 1 Yanely Sodium 40 8-22 tablet (40 Seyb old MG oral 00:00: mg total) - Tablet 00 by mouth Externa nightly AT l BEDTIME Empaglifloz 2021- No [id number] 1 tablet Yanely in 01-24 12-12 po Q daily Seybold (Jardiance) 00:00: 00:00 - 10 MG oral 00 :00 Externa Tablet l Insulin 2021- No [id number] 85 units K elsey Glargine 01-24 12-12 SQ nightly Seyb old (Basaglar 00:00: 00:00 - KwikPen) 00 :00 Externa 100 UNIT/ML l subcutaneou s Solution Pen-injecto r Insulin Pen 2021- No [id number] Takes Yanely Needle 31G 8-22 12-12 insulin Seybo ld X 5 MM does 00:00: 00:00 QID - not apply 00 :00 Externa Misc l Allopurinol Yes [id number] TAKE ONE Yanely 100 MG oral 7-27 TABLET BY Sey bold Tablet 00:00: MOUTH - 00 DAILY Externa l Carvedilol 2022-0 Yes TAKE ONE Ricardo sey 25 MG oral 7-27 TABLET BY Seyb old Tablet 00:00: MOUTH - 00 TWICE A Externa DAY WITH A l MEAL GlipiZIDE 2021-0 Yes TAKE ONE Yara ey 10 MG oral 7-27 TABLET BY Seyb old TABLET SR 00:00: MOUTH - 24 HR 00 EVERY Externa MORNING l Allopurinol 2-0 Yes [id number] TAKE ONE Yanely 100 MG oral 7-27 TABLET BY Sey bold Tablet 00:00: MOUTH - 00 DAILY Externa l Carvedilol 2021-0 Yes TAKE ONE Ricardo sey 25 MG oral 7-27 TABLET BY Seyb old Tablet 00:00: MOUTH - 00 TWICE A Externa DAY WITH A l MEAL GlipiZIDE 2021-0 Yes TAKE ONE Yara ey 10 MG oral 7-27 TABLET BY Seyb old TABLET SR 00:00: MOUTH - 24 HR 00 EVERY Externa MORNING l Allopurinol 2021-0 Yes [id number] TAKE ONE Yanely 100 MG oral 7-27 TABLET BY Sey bold Tablet 00:00: MOUTH - 00 DAILY Externa l GlipiZIDE 2021-0 Yes TAKE ONE Yara ey 10 MG oral 7-27 TABLET BY Seyb old TABLET SR 00:00: MOUTH - 24 HR 00 EVERY Externa MORNING l Allopurinol 2-0 Yes [id number] TAKE ONE Yanely 100 MG oral 7-27 TABLET BY Sey bold Tablet 00:00: MOUTH - 00 DAILY Externa l GlipiZIDE 2021-0 Yes TAKE ONE Yara ey 10 MG oral 7-27 TABLET BY Seyb old TABLET SR 00:00: MOUTH - 24 HR 00 EVERY Externa MORNING l Allopurinol 2-0 Yes [id number] TAKE ONE Yanely 100 MG oral 7-27 TABLET BY Sey bold Tablet 00:00: MOUTH - 00 DAILY Externa l GlipiZIDE 2-0 Yes TAKE ONE Yara ey 10 MG oral 7-27 TABLET BY Seyb old TABLET SR 00:00: MOUTH - 24 HR 00 EVERY Externa MORNING l GlipiZIDE 2-0 Yes TAKE ONE Yara ey 10 MG oral 7-27 TABLET BY Seyb old TABLET SR 00:00: MOUTH - 24 HR 00 EVERY Externa MORNING l GlipiZIDE 2-0 Yes TAKE ONE Yara ey 10 MG oral 7-27 TABLET BY Seyb old TABLET SR 00:00: MOUTH - 24 HR 00 EVERY Externa MORNING l GlipiZIDE Yes TAKE ONE Yara ey 10 MG oral 7-27 TABLET BY Seyb old TABLET SR 00:00: MOUTH - 24 HR 00 EVERY Externa MORNING l GlipiZIDE Yes TAKE ONE Yara ey 10 MG oral 7-27 TABLET BY Seyb old TABLET SR 00:00: MOUTH - 24 HR 00 EVERY Externa MORNING l Potassium Yes 1{tbl} Take 1 Yara ey 99 MG oral 5-27 tablet by Seyb old Tablet 07:59: mouth 40 daily GLUCOSAMINE Yes 1{capsu Take 1 K elsey -FISH 5-27 le} capsule by Luiza OIL-EPA-DHA 07:59: mouth OR 40 daily Aspirin 81 Yes 1{capsu Take 1 Ke lsey MG oral 5-27 le} capsule by Zacheryol d Capsule 07:59: mouth 40 daily Magnesium Yes 296mL Take 296 Ricardo sey Citrate 5-27 mL by Zacheryold oral 07:59: mouth once Solution 40 Fenugreek Yes 2{capsu Take 2 Ricardo sey 500 MG oral 5-27 le} capsules Seyb old Capsule 07:59: by mouth 2 40 times daily [place]orne-3 Yes [id number] 1{capsu Take 1 K elsey Fatty Acids 5-27 le} capsule by Se mathias (Fish Oil 07:59: mouth Concentrate 40 daily ) 300 MG oral Capsule Multiple Yes [id number] 1{tbl} Take 1 K elsey Vitamin 5-27 tablet by Luiza (MULTI 07:59: mouth VITAMIN 40 nightly MENS OR) prednisoLON Yes 1[drp] Place 1 K elsey E Acetate 1 5-27 drop into Sey bold % 00:00: the right ophthalmic 00 eye 4 Suspension times daily KETOROLAC Yes 1[drp] Place 1 Ricardo sey TROMETHAMIN 5-27 drop into Sey bold E, OPHTH, 00:00: the right (Acular) 00 eye 4 0.5 % times ophthalmic daily Solution Gatifloxaci Yes 1[drp] Place 1 K elsey n (Zymaxid) 5-27 drop into Sey bold 0.5 % 00:00: the right ophthalmic 00 eye 4 Solution times daily Bevacizumab 2021- No [id number] 1.25mg Yanely (AVASTIN) 09-24 Seybold 100 mg/4 mL 14:15: 14:11 - Physician 00 :00 Administere d ([id number]) Bevacizumab 2022- No [id number] 1.25mg 1.25 mg, Yanely (AVASTIN) 09-24 Physician Seyb old 100 mg/4 mL 14:15: 14:11 Administer - Physician 00 :00 ed, ONCE, Administere 1 dose, On d ([id number]) 09/24/21 at 0915 Potassium Yes 1{tbl} Take 1 Yara ey 99 MG oral 4-22 tablet by Seyb old Tablet 08:21: mouth 31 daily GLUCOSAMINE Yes 1{capsu Take 1 K elsey -FISH 4-22 le} capsule by Seybold OIL-EPA-DHA 08:21: mouth OR 31 daily Aspirin 81 Yes 1{capsu Take 1 Ke lsey MG oral 4-22 le} capsule by Seybol d Capsule 08:21: mouth 31 daily Magnesium Yes 296mL Take 296 Ricardo sey Citrate 4-22 mL by Seybold oral 08:21: mouth once Solution 31 Fenugreek Yes 2{capsu Take 2 Ricardo sey 500 MG oral 4-22 le} capsules Seyb old Capsule 08:21: by mouth 2 31 times daily [place]-3 Yes [id number] 1{capsu Take 1 K elsey Fatty Acids 4-22 le} capsule by Se ybold (Fish Oil 08:21: mouth Concentrate 31 daily ) 300 MG oral Capsule Multiple Yes [id number] 1{tbl} Take 1 K elsey Vitamin 4-22 tablet by Seybold (MULTI 08:21: mouth VITAMIN 31 nightly MENS OR) Potassium Yes 1{tbl} Take 1 Yara ey 99 MG oral 3-23 tablet by Seyb old Tablet 08:04: mouth 08 daily GLUCOSAMINE Yes 1{capsu Take 1 K elsey -FISH 3-23 le} capsule by Seybold OIL-EPA-DHA 08:04: mouth OR 08 daily Aspirin 81 2022-0 Yes 1{capsu Take 1 Ke lsey MG oral 3-23 le} capsule by Seybol d Capsule 08:04: mouth 08 daily Magnesium 2021-0 Yes 296mL Take 296 Ricardo sey Citrate 3-23 mL by Seybold oral 08:04: mouth once Solution 08 Fenugreek 2021-0 Yes 2{capsu Take 2 Ricardo sey 500 MG oral 3-23 le} capsules Seyb old Capsule 08:04: by mouth 2 08 times daily [place]-3 2021-0 Yes [id number] 1{capsu Take 1 K elsey Fatty Acids 3-23 le} capsule by Se ybold (Fish Oil 08:04: mouth Concentrate 08 daily ) 300 MG oral Capsule Multiple 2021-0 Yes [id number] 1{tbl} Take 1 K elsey Vitamin 3-23 tablet by Seybold (MULTI 08:04: mouth VITAMIN 08 nightly MENS OR) Azithromyci 2021-0 Yes [id number] Take 2 Yanely n 250 MG 3-23 tablets by Seybo ld oral Tablet 00:00: mouth on day 1 then 1 tablet by mouth daily for 4 days thereafter . Azithromyci 2021-0 Yes [id number] Take 2 Yanely n 250 MG 3-23 tablets by Seybo ld oral Tablet 00:00: mouth on day 1 then 1 tablet by mouth daily for 4 days thereafter . Azithromyci 2021-0 Yes [id number] Take 2 Yanely n 250 MG 3-23 tablets by Seybo ld oral Tablet 00:00: mouth on day 1 then 1 tablet by mouth daily for 4 days thereafter . cloNIDine 2021-0 Yes [id number] .1mg Take 1 Un rafael 0.1 mg 3-16 tablet by ity of tablet 00:00: mouth 2 (two) Medical times [facility] daily. cloNIDine 2021-0 Yes [id number] .1mg Take 1 Un rafael 0.1 mg 3-16 tablet by ity of tablet 00:00: mouth 2 (two) Medical times Branch daily. cloNIDine 2021-0 Yes [id number] .1mg Take 1 Un rafael 0.1 mg 3-16 tablet by ity of tablet 00:00: mouth 2 (two) Medical times Branch daily. cloNIDine Yes [id number] .1mg Take 1 Un rafael 0.1 mg 3-16 tablet by ity of tablet 00:00: mouth 2 [place] (two) Medical times Branch daily. cloNIDine Yes [id number] .1mg Take 1 Un rafael 0.1 mg 3-16 tablet by ity of tablet 00:00: mouth 2 [place] (two) Medical times Branch daily. Bevacizumab 2021- No [id number] 1.25mg Yanely (AVASTIN) 08-13 Seybold 100 mg/4 mL 16:00: 16:05 - Physician 00 :00 Administere d (J9035) Bevacizumab 2021- No [id number] 1.25mg 1.25 mg, Yanely (AVASTIN) 08-13 Physician Seyb old 100 mg/4 mL 16:00: 16:05 Administer - Physician 00 :00 ed, ONCE, Administere 1 dose, On d (J9035) 08/13/21 at 1000 Potassium Yes 1{tbl} Take 1 Yara ey 99 MG oral 3-11 tablet by Seyb old Tablet 10:03: mouth 24 daily GLUCOSAMINE Yes 1{capsu Take 1 K elsey -FISH 3-11 le} capsule by Seybold OIL-EPA-DHA 10:03: mouth OR 24 daily Aspirin 81 Yes 1{capsu Take 1 Ke lsey MG oral 3-11 le} capsule by Seybol d Capsule 10:03: mouth 24 daily Magnesium Yes 296mL Take 296 Ricardo sey Citrate 3-11 mL by Seybold oral 10:03: mouth once Solution 24 Fenugreek Yes 2{capsu Take 2 Ricardo sey 500 MG oral 3-11 le} capsules Seyb old Capsule 10:03: by mouth 2 24 times daily [place]-3 Yes [id number] 1{capsu Take 1 K elsey Fatty Acids 3-11 le} capsule by Se ybold (Fish Oil 10:03: mouth Concentrate 24 daily ) 300 MG oral Capsule Multiple Yes [id number] 1{tbl} Take 1 K elsey Vitamin 3-11 tablet by Seybold (MULTI 10:03: mouth VITAMIN 24 nightly MENS OR) Potassium Yes 1{tbl} Take 1 Yara ey 99 MG oral 3-07 tablet by Seyb old Tablet 10:52: mouth 24 daily GLUCOSAMINE Yes 1{capsu Take 1 K elsey -FISH 3-07 le} capsule by Seybold OIL-EPA-DHA 10:52: mouth OR 24 daily Aspirin 81 Yes 1{capsu Take 1 Ke lsey MG oral 3-07 le} capsule by Seybol d Capsule 10:52: mouth 24 daily Magnesium Yes 296mL Take 296 Ricardo sey Citrate 3-07 mL by Seybold oral 10:52: mouth once Solution 24 Fenugreek Yes 2{capsu Take 2 Ricardo sey 500 MG oral 3-07 le} capsules Seyb old Capsule 10:52: by mouth 2 24 times daily [place]-3 Yes [id number] 1{capsu Take 1 K elsey Fatty Acids 3-07 le} capsule by Se [facility] (Fish Oil 10:52: mouth Concentrate 24 daily ) 300 MG oral Capsule Multiple Yes [id number] 1{tbl} Take 1 K elsey Vitamin 3-07 tablet by Seybold (MULTI 10:52: mouth VITAMIN 24 nightly MENS OR) Empaglifloz Yes [id number] 1 tablet Yanely in 3-07 po Q daily Seybold (Jardiance) 00:00: 10 MG oral 00 Tablet Gabapentin Yes [id number] 100mg Take 1 Yanely 100 MG oral 3-07 capsule Seybo ld Capsule 00:00: (100 mg 00 total) by mouth 3 times daily Insulin Yes [id number] 15 units Ke lsey Aspart 3-07 SQ before Seybold (NovoLOG) 00:00: major 100 UNIT/ML 00 meals TID subcutaneou s Solution Insulin Yes [id number] 85 units Ke lsey Glargine 3-07 SQ nightly Seybo ld (Basaglar 00:00: KwikPen) 00 100 UNIT/ML subcutaneou s Solution Pen-injecto r Insulin Pen Yes [id number] Takes K elsey Needle 31G 3-07 insulin Seybol d X 5 MM does 00:00: QID not apply 00 Misc GlipiZIDE 2022-0 Yes [id number] 10mg Take 1 Ke lsey 10 MG oral 3-07 tablet (10 Sey bold TABLET SR 00:00: mg total) 24 HR 00 by mouth in the morning. Empaglifloz 2021-0 Yes [id number] 1 tablet Yanely in 3-07 po Q daily Seybold (Jardiance) 00:00: 10 MG oral 00 Tablet Gabapentin 2021-0 Yes [id number] 100mg Take 1 Yanely 100 MG oral 3-07 capsule Seybo ld Capsule 00:00: (100 mg 00 total) by mouth 3 times daily Insulin 0 Yes [id number] 15 units Ke lsey Aspart 3-07 SQ before Seybold (NovoLOG) 00:00: major 100 UNIT/ML 00 meals TID subcutaneou s Solution Insulin 2021-0 Yes [id number] 85 units Ke lsey Glargine 3-07 SQ nightly Seybo ld (Basaglar 00:00: KwikPen) 00 100 UNIT/ML subcutaneou s Solution Pen-injecto r Insulin Pen Yes [id number] Takes K elsey Needle 31G 3-07 insulin Seybol d X 5 MM does 00:00: QID not apply 00 Misc GlipiZIDE 0 Yes [id number] 10mg Take 1 Ke lsey 10 MG oral 3-07 tablet (10 Sey bold TABLET SR 00:00: mg total) 24 HR 00 by mouth in the morning. Empaglifloz 2021-0 Yes [id number] 1 tablet Yanely in 3-07 po Q daily Seybold (Jardiance) 00:00: 10 MG oral 00 Tablet Gabapentin 2021-0 Yes [id number] 100mg Take 1 Yanely 100 MG oral 3-07 capsule Seybo ld Capsule 00:00: (100 mg 00 total) by mouth 3 times daily Insulin 2021-0 Yes [id number] 15 units Ke lsey Aspart 3-07 SQ before Seybold (NovoLOG) 00:00: major 100 UNIT/ML 00 meals TID subcutaneou s Solution Insulin 2021-0 Yes [id number] 85 units Ke lsey Glargine 3-07 SQ nightly Seybo ld (Basaglar 00:00: KwikPen) 00 100 UNIT/ML subcutaneou s Solution Pen-injecto r Insulin Pen 0 Yes [id number] Takes K elsey Needle 31G 3-07 insulin Seybol d X 5 MM does 00:00: QID not apply 00 Misc GlipiZIDE 0 Yes [id number] 10mg Take 1 Ke lsey 10 MG oral 3-07 tablet (10 Sey bold TABLET SR 00:00: mg total) 24 HR 00 by mouth in the morning. Empaglifloz 0 Yes [id number] 1 tablet Yanely in 3-07 po Q daily Seybold (Jardiance) 00:00: 10 MG oral 00 Tablet Gabapentin 2021-0 Yes [id number] 100mg Take 1 Yanely 100 MG oral 3-07 capsule Seybo ld Capsule 00:00: (100 mg 00 total) by mouth 3 times daily Insulin Yes [id number] 15 units Ke lsey Aspart 3-07 SQ before Seybold (NovoLOG) 00:00: major 100 UNIT/ML 00 meals TID subcutaneou s Solution Insulin Yes [id number] 85 units Ke lsey Glargine 3-07 SQ nightly Seybo ld (Basaglar 00:00: KwikPen) 00 100 UNIT/ML subcutaneou s Solution Pen-injecto r Insulin Pen Yes [id number] Takes K elsey Needle 31G 3-07 insulin Seybol d X 5 MM does 00:00: QID not apply 00 Misc GlipiZIDE 0 Yes [id number] 10mg Take 1 Ke lsey 10 MG oral 3-07 tablet (10 Sey bold TABLET SR 00:00: mg total) 24 HR 00 by mouth in the morning. Empaglifloz 0 Yes [id number] 1 tablet Yanely in 3-07 po Q daily Seybold (Jardiance) 00:00: 10 MG oral 00 Tablet Gabapentin 2021-0 Yes [id number] 100mg Take 1 Yanely 100 MG oral 3-07 capsule Seybo ld Capsule 00:00: (100 mg 00 total) by mouth 3 times daily Insulin 2021-0 Yes [id number] 15 units Ke lsey Aspart 3-07 SQ before Seybold (NovoLOG) 00:00: major 100 UNIT/ML 00 meals TID subcutaneou s Solution Insulin Yes [id number] 85 units Ke lsey Glargine 3-07 SQ nightly Seybo ld (Basaglar 00:00: KwikPen) 00 100 UNIT/ML subcutaneou s Solution Pen-injecto r Insulin Pen Yes [id number] Takes K elsey Needle 31G 3-07 insulin Seybol d X 5 MM does 00:00: QID not apply 00 Misc GlipiZIDE Yes [id number] 10mg Take 1 Ke lsey 10 MG oral 3-07 tablet (10 Sey bold TABLET SR 00:00: mg total) 24 HR 00 by mouth in the morning. Insulin Yes [id number] 15 units Ke lsey Aspart 3-07 SQ before Seybold (NovoLOG) 00:00: major - 100 UNIT/ML 00 meals TID Ext winifred subcutaneou l s Solution Insulin Yes [id number] 15 units Ke lsey Aspart 3-07 SQ before Seybold (NovoLOG) 00:00: major - 100 UNIT/ML 00 meals TID Ext winifred subcutaneou l s Solution Allopurinol Yes [id number] 100mg Take 1 Yanely 100 MG oral 3-01 tablet Seybol d Tablet 00:00: (100 mg 00 total) by mouth daily Pravastatin Yes [id number] TAKE ONE Yanely Sodium 40 3-01 TABLET BY Seybo ld MG oral 00:00: MOUTH Tablet 00 EVERY NIGHT AT BEDTIME Carvedilol Yes 25mg Take 1 Kelse y 25 MG oral 3-01 tablet (25 Sey bold Tablet 00:00: mg total) 00 by mouth 2 times daily (with meals) Allopurinol Yes [id number] 100mg Take 1 Yanely 100 MG oral 3-01 tablet Seybol d Tablet 00:00: (100 mg 00 total) by mouth daily Pravastatin 2021-0 Yes [id number] TAKE ONE Yanely Sodium 40 3-01 TABLET BY Seybo ld MG oral 00:00: MOUTH Tablet 00 EVERY NIGHT AT BEDTIME Carvedilol Yes 25mg Take 1 Kelse y 25 MG oral 3-01 tablet (25 Sey bold Tablet 00:00: mg total) 00 by mouth 2 times daily (with meals) Allopurinol Yes [id number] 100mg Take 1 Yanely 100 MG oral 3-01 tablet Seybol d Tablet 00:00: (100 mg 00 total) by mouth daily Pravastatin Yes [id number] TAKE ONE Yanely Sodium 40 3-01 TABLET BY Seybo ld MG oral 00:00: MOUTH Tablet 00 EVERY NIGHT AT BEDTIME Carvedilol Yes 25mg Take 1 Kelse y 25 MG oral 3-01 tablet (25 Sey bold Tablet 00:00: mg total) 00 by mouth 2 times daily (with meals) Allopurinol Yes [id number] 100mg Take 1 Yanely 100 MG oral 3-01 tablet Seybol d Tablet 00:00: (100 mg 00 total) by mouth daily Pravastatin Yes [id number] TAKE ONE Yanely Sodium 40 3-01 TABLET BY Seybo ld MG oral 00:00: MOUTH Tablet 00 EVERY NIGHT AT BEDTIME Carvedilol Yes 25mg Take 1 Kelse y 25 MG oral 3-01 tablet (25 Sey bold Tablet 00:00: mg total) 00 by mouth 2 times daily (with meals) Allopurinol Yes [id number] 100mg Take 1 Yanely 100 MG oral 3-01 tablet Seybol d Tablet 00:00: (100 mg 00 total) by mouth daily Pravastatin Yes [id number] TAKE ONE Yanely Sodium 40 3-01 TABLET BY Seybo ld MG oral 00:00: MOUTH Tablet 00 EVERY NIGHT AT BEDTIME Carvedilol Yes 25mg Take 1 Kelse y 25 MG oral 3-01 tablet (25 Sey bold Tablet 00:00: mg total) 00 by mouth 2 times daily (with meals) Gabapentin 2021- No 100mg Take 1 Ricardo sey 100 MG oral 3-01 03-07 capsule Seyb old Capsule 00:00: 00:00 (100 mg 00 :00 total) by mouth 3 times daily Bevacizumab 2021- No [id number] 1.25mg Yanely (AVASTIN) 07-02 Seybold 100 mg/4 mL 14:15: 14:29 - Physician 00 :00 Administere d (J9035) Bevacizumab 2021- No [id number] 1.25mg 1.25 mg, Yanely (AVASTIN) -02 07- Physician Seyb old 100 mg/4 mL 14:15: 14:29 Administer - Physician 00 :00 ed, ONCE, Administere 1 dose, On d (J9035) Mon07/02/21 at 0815 Potassium Yes 1{tbl} Take 1 Yara ey 99 MG oral - tablet by Seyb old Tablet 08:24: mouth 50 daily GLUCOSAMINE Yes 1{capsu Take 1 K elsey -FISH - le} capsule by ybemmanuel OIL-EPA-DHA 08:24: mouth OR 50 daily Aspirin 81 Yes 1{capsu Take 1 Ke lsey MG oral - le} capsule by ybol d Capsule 08:24: mouth 50 daily Magnesium Yes 296mL Take 296 Ricardo sey Citrate - mL by Seybold oral 08:24: mouth once Solution 50 Fenugreek Yes 2{capsu Take 2 Ricardo sey 500 MG oral - le} capsules Seyb old Capsule 08:24: by mouth 2 50 times daily [place]-3 Yes [id number] 1{capsu Take 1 K elsey Fatty Acids - le} capsule by Se mathias (Fish Oil 08:24: mouth Concentrate 50 daily ) 300 MG oral Capsule Multiple Yes [id number] 1{tbl} Take 1 K elsey Vitamin - tablet by Seybold (MULTI 08:24: mouth VITAMIN 50 nightly MENS OR) Bevacizumab 2020-06- No [id number] 1.25mg Yanely (AVASTIN) -21 05- Seybold 100 mg/4 mL 14:45: 14:34 - Physician 00 :00 Administere d (J9035) Bevacizumab 2020-06- No [id number] 1.25mg 1.25 mg, Yanely (AVASTIN) 2-05-21 Physician Seyb old 100 mg/4 mL 14:45: 14:34 Administer - Physician 00 :00 ed, ONCE, Administere 1 dose, On d (J9035) Mon05/21/21 at 0845 Potassium 2020-06 Yes 1{tbl} Take 1 Yara ey 99 MG oral 2-17 tablet by Seyb old Tablet 08:04: mouth 02 daily GLUCOSAMINE 2020-06 Yes 1{capsu Take 1 K elsey -FISH 2-17 le} capsule by Luiza OIL-EPA-DHA 08:04: mouth OR 02 daily Aspirin 81 2020-06 Yes 1{capsu Take 1 Ke lsey MG oral 2-17 le} capsule by Seybol d Capsule 08:04: mouth 02 daily Magnesium 2020-06 Yes 296mL Take 296 Ricardo sey Citrate 2-17 mL by Seybold oral 08:04: mouth once Solution 02 Fenugreek 2020-06 Yes 2{capsu Take 2 Ricardo sey 500 MG oral 2-17 le} capsules Seyb old Capsule 08:04: by mouth 2 02 times daily [place]-3 2020-06 Yes [id number] 1{capsu Take 1 K elsey Fatty Acids 2-17 le} capsule by Se mathias (Fish Oil 08:04: mouth Concentrate 02 daily ) 300 MG oral Capsule Multiple 2020-06 Yes [id number] 1{tbl} Take 1 K elsey Vitamin 2-17 tablet by Luiza (MULTI 08:04: mouth VITAMIN 02 nightly MENS OR) Allopurinol 2020-06 Yes [id number] 100mg Take 1 Yanely 100 MG oral 2-07 tablet Seybol d Tablet 00:00: (100 mg 00 total) by mouth daily Gabapentin 2020-06 Yes 100mg Take 1 Yara ey 100 MG oral 2-07 capsule Seybo ld Capsule 00:00: (100 mg 00 total) by mouth 3 times daily Allopurinol 2020-06 Yes [id number] 100mg Take 1 Yanely 100 MG oral 2-07 tablet Seybol d Tablet 00:00: (100 mg 00 total) by mouth daily Gabapentin 2020-06 Yes 100mg Take 1 Yara ey 100 MG oral 2-07 capsule Seybo ld Capsule 00:00: (100 mg 00 total) by mouth 3 times daily Bevacizumab 2020-06- No [id number] 1.25mg Yanely (AVASTIN) 06-23 ybold 100 mg/4 mL 14:15: 14:19 - Physician 00 :00 Administere d (J9035) Bevacizumab 2020-06- No [id number] 1.25mg 1.25 mg, Yanely (AVASTIN) 1-19 11-19 Physician yb old 100 mg/4 mL 14:15: 14:19 Administer - Physician 00 :00 ed, ONCE, Administere 1 dose, On d (J9035) Mon04/23/21 at 0815 Potassium 2020-06 Yes 1{tbl} Take 1 Yara ey 99 MG oral 1-19 tablet by Seyb old Tablet 08:17: mouth 22 daily GLUCOSAMINE 2020-06 Yes 1{capsu Take 1 K elsey -FISH 1-19 le} capsule by Seybold OIL-EPA-DHA 08:17: mouth OR 22 daily Aspirin 81 2020-06 Yes 1{capsu Take 1 Ke lsey MG oral 1-19 le} capsule by Seybol d Capsule 08:17: mouth 22 daily Magnesium 2020-06 Yes 296mL Take 296 Ricardo sey Citrate 1-19 mL by Seybold oral 08:17: mouth once Solution 22 Fenugreek 2020-06 Yes 2{capsu Take 2 Ricardo sey 500 MG oral 1-19 le} capsules Seyb old Capsule 08:17: by mouth 2 22 times daily [place]-3 2020-06 Yes [id number] 1{capsu Take 1 K elsey Fatty Acids 1-19 le} capsule by Se ybold (Fish Oil 08:17: mouth Concentrate 22 daily ) 300 MG oral Capsule Multiple 2020-06 Yes [id number] 1{tbl} Take 1 K elsey Vitamin 1-19 tablet by Seybold (MULTI 08:17: mouth VITAMIN 22 nightly MENS OR) Allopurinol 2020-06 Yes [id number] 100mg Take 100 Yanely 100 MG oral 1-19 mg by Seybold Tablet 08:17: mouth 22 daily Bevacizumab 2020-06- No [id number] 1.25mg Yanely (AVASTIN) 0-15 10-15 Seybold 100 mg/4 mL 14:30: 14:23 - Physician 00 :00 Administere d (J9035) Bevacizumab 2020-06- No [id number] 1.25mg 1.25 mg, Yanely (AVASTIN) 0-15 10-15 Physician Seyb old 100 mg/4 mL 14:30: 14:23 Administer - Physician 00 :00 ed, ONCE, Administere 1 dose, On d (J9035) 10/15/21 at 0930 Potassium 2020-06 Yes 1{tbl} Take 1 Yara ey 99 MG oral 0-15 tablet by Seyb old Tablet 09:06: mouth 12 daily GLUCOSAMINE 2020-06 Yes 1{capsu Take 1 K elsey -FISH 0-15 le} capsule by Seybold OIL-EPA-DHA 09:06: mouth OR 12 daily Aspirin 81 2020-06 Yes 1{capsu Take 1 Ke lsey MG oral 0-15 le} capsule by Seybol d Capsule 09:06: mouth 12 daily Magnesium 2020-06 Yes 296mL Take 296 Ricardo sey Citrate 0-15 mL by Seybold oral 09:06: mouth once Solution 12 Fenugreek 2020-06 Yes 2{capsu Take 2 Ricardo sey 500 MG oral 0-15 le} capsules Seyb old Capsule 09:06: by mouth 2 12 times daily [place]-3 2020-06 Yes [id number] 1{capsu Take 1 K elsey Fatty Acids 0-15 le} capsule by Se ybold (Fish Oil 09:06: mouth Concentrate 12 daily ) 300 MG oral Capsule Multiple 2020-06 Yes [id number] 1{tbl} Take 1 K elsey Vitamin 0-15 tablet by Seybold (MULTI 09:06: mouth VITAMIN 12 nightly MENS OR) Allopurinol 2020-06 Yes [id number] 100mg Take 100 Yanely 100 MG oral 0-15 mg by Seybold Tablet 09:06: mouth 12 daily Insulin 2020-06 Yes [id number] 15 units Ke lsey Aspart 0-13 SQ before Seybold (NovoLOG) 00:00: major 100 UNIT/ML 00 meals TID subcutaneou s Solution Insulin 2020-06 Yes [id number] 15 units Ke lsey Aspart 0-13 SQ before Seybold (NovoLOG) 00:00: major 100 UNIT/ML 00 meals TID subcutaneou s Solution Insulin 2020-06 Yes [id number] 15 units Ke lsey Aspart 0-13 SQ before Seybold (NovoLOG) 00:00: major 100 UNIT/ML 00 meals TID subcutaneou s Solution Insulin 2020-06 Yes [id number] 15 units Ke lsey Aspart 0-13 SQ before Seybold (NovoLOG) 00:00: major 100 UNIT/ML 00 meals TID subcutaneou s Solution Insulin 2020-06- No [id number] 15 units K elsey Aspart 0-13 03-07 SQ before Seybold (NovoLOG) 00:00: 00:00 major 100 UNIT/ML 00 :00 meals TID subcutaneou s Solution Insulin 2020-06 Yes 85 units Yanely Glargine 0-12 SQ nightly Seybo ld (Basaglar 00:00: KwikPen) 00 100 UNIT/ML subcutaneou s Solution Pen-injecto r Insulin 2020-06 Yes 85 units Yanely Glargine 0-12 SQ nightly Seybo ld (Basaglar 00:00: KwikPen) 00 100 UNIT/ML subcutaneou s Solution Pen-injecto r Insulin 2020-06 Yes 85 units Yanely Glargine 0-12 SQ nightly Seybo ld (Basaglar 00:00: KwikPen) 00 100 UNIT/ML subcutaneou s Solution Pen-injecto r Insulin 2020-06 Yes 85 units Yanely Glargine 0-12 SQ nightly Seybo ld (Basaglar 00:00: KwikPen) 00 100 UNIT/ML subcutaneou s Solution Pen-injecto r Insulin 2020-06- No 85 units Kelse y Glargine 0-12 03-07 SQ nightly Seyb old (Basaglar 00:00: 00:00 KwikPen) 00 :00 100 UNIT/ML subcutaneou s Solution Pen-injecto r Potassium 2020-06 Yes 1{tbl} Take 1 Yara ey 99 MG oral 0-11 tablet by Seyb old Tablet 14:59: mouth 04 daily GLUCOSAMINE 2020-06 Yes 1{capsu Take 1 K elsey -FISH 0-11 le} capsule by Seybold OIL-EPA-DHA 14:59: mouth OR 04 daily Aspirin 81 2020-06 Yes 1{capsu Take 1 Ke lsey MG oral 0-11 le} capsule by Seybol d Capsule 14:59: mouth 04 daily Magnesium 2020-06 Yes 296mL Take 296 Ricardo sey Citrate 0-11 mL by Seybold oral 14:59: mouth once Solution 04 Fenugreek 2020-06 Yes 2{capsu Take 2 Ricardo sey 500 MG oral 0-11 le} capsules Seyb old Capsule 14:59: by mouth 2 04 times daily [place]-3 2020-06 Yes [id number] 1{capsu Take 1 K elsey Fatty Acids 0-11 le} capsule by Se ybold (Fish Oil 14:59: mouth Concentrate 04 daily ) 300 MG oral Capsule Multiple 2020-06 Yes [id number] 1{tbl} Take 1 K elsey Vitamin 0-11 tablet by Seybold (MULTI 14:59: mouth VITAMIN 04 nightly MENS OR) Allopurinol 2020-06 Yes [id number] 100mg Take 100 Yanely 100 MG oral 0-11 mg by Seybold Tablet 14:59: mouth 04 daily Insulin 2020-06 Yes [id number] 80 units Ke lsey Glargine, 1 0-11 SQ once Seybo ld Unit Dial, 00:00: nightly at ([place] 00 bedtime SoloStar) 300 UNIT/ML subcutaneou s Solution Pen-injecto r Pravastatin 2020-06 Yes [id number] 40mg Take 1 Yanely Sodium 40 0-11 tablet (40 Seyb old MG oral 00:00: mg total) Tablet 00 by mouth nightly Insulin 2020-06 Yes [id number] 15 units Ke lsey Aspart 0-11 SQ before Seybold (NovoLOG 00:00: major FlexPen) 00 meals TID 100 UNIT/ML subcutaneou s Solution Pen-injecto r Insulin Pen 2020-06 Yes [id number] Takes K elsey Needle 31G 0-11 insulin Seybol d X 5 MM does 00:00: QID not apply 00 Misc Empaglifloz 2020-06 Yes [id number] 1 tablet Yanely in 0-11 po Q daily Seybold (Jardiance) 00:00: 10 MG oral 00 Tablet Pravastatin 2020-06 Yes [id number] 40mg Take 1 Yanely Sodium 40 0-11 tablet (40 Seyb old MG oral 00:00: mg total) Tablet 00 by mouth nightly Insulin Pen 2020-06 Yes [id number] Takes K elsey Needle 31G 0-11 insulin Seybol d X 5 MM does 00:00: QID not apply 00 Misc Empaglifloz 2020-06 Yes [id number] 1 tablet Yanely in 0-11 po Q daily Seybold (Jardiance) 00:00: 10 MG oral 00 Tablet Pravastatin 2020-06 Yes [id number] 40mg Take 1 Yanely Sodium 40 0-11 tablet (40 Seyb old MG oral 00:00: mg total) Tablet 00 by mouth nightly Insulin Pen 2020-06 Yes [id number] Takes K elsey Needle 31G 0-11 insulin Seybol d X 5 MM does 00:00: QID not apply 00 Misc Empaglifloz 2020-06 Yes [id number] 1 tablet Yanely in 0-11 po Q daily Seybold (Jardiance) 00:00: 10 MG oral 00 Tablet Pravastatin 2020-06 Yes [id number] 40mg Take 1 Yanely Sodium 40 0-11 tablet (40 Seyb old MG oral 00:00: mg total) Tablet 00 by mouth nightly Insulin Pen 2020-06 Yes [id number] Takes K elsey Needle 31G 0-11 insulin Seybol d X 5 MM does 00:00: QID not apply 00 Misc Empaglifloz 2020-06 Yes [id number] 1 tablet Yanely in 0-11 po Q daily Seybold (Jardiance) 00:00: 10 MG oral 00 Tablet Pravastatin 2020-06 Yes [id number] 40mg Take 1 Yanely Sodium 40 0-11 tablet (40 Seyb old MG oral 00:00: mg total) Tablet 00 by mouth nightly Insulin Pen 2020-06 Yes [id number] Takes K elsey Needle 31G 0-11 insulin Seybol d X 5 MM does 00:00: QID not apply 00 Misc Empaglifloz 2020-06 Yes [id number] 1 tablet Yanely in 0-11 po Q daily Seybold (Jardiance) 00:00: 10 MG oral 00 Tablet Insulin Pen 2020-06- No [id number] Takes Yanely Needle 31G 0-11 03-07 insulin Seybo ld X 5 MM does 00:00: 00:00 QID not apply 00 :00 Misc Empaglifloz 2020-06- No [id number] 1 tablet Yanely in 0-11 03-07 po Q daily Seybold (Jardiance) 00:00: 00:00 10 MG oral 00 :00 Tablet Na 2020-0 Yes USE Yanely Sulfate-K 9-16 DIRECTED Seybol d Sulfate-Mg 00:00: Sulf 00 (Suprep Bowel Prep Kit) 17.5-3.13-1 .6 GM/177ML oral Solution Na Yes USE Yanely Sulfate-K 9-16 DIRECTED Seybol d Sulfate-Mg 00:00: Sulf 00 (Suprep Bowel Prep Kit) 17.5-3.13-1 .6 GM/177ML oral Solution Na Yes USE Yanely Sulfate-K 9-16 DIRECTED Seybol d Sulfate-Mg 00:00: Sulf 00 (Suprep Bowel Prep Kit) 17.5-3.13-1 .6 GM/177ML oral Solution Na Yes USE Yanely Sulfate-K 9-16 DIRECTED Seybol d Sulfate-Mg 00:00: Sulf 00 (Suprep Bowel Prep Kit) 17.5-3.13-1 .6 GM/177ML oral Solution Fenugreek Yes 2{capsu Take 2 Ricardo sey 500 MG oral 9-15 le} capsules Seyb old Capsule 15:01: by mouth 2 30 times daily Fenugreek Yes 2{capsu Take 2 Ricardo sey 500 MG oral 9-15 le} capsules Seyb old Capsule 15:01: by mouth 2 30 times daily Potassium Yes 1{tbl} Take 1 Yara ey 99 MG oral 9-15 tablet by Seyb old Tablet 15:00: mouth 22 daily GLUCOSAMINE Yes 1{capsu Take 1 K elsey -FISH 9-15 le} capsule by Seybold OIL-EPA-DHA 15:00: mouth OR 22 daily Aspirin 81 0 Yes 1{capsu Take 1 Ke lsey MG oral 9-15 le} capsule by Seybol d Capsule 15:00: mouth 22 daily Magnesium 0 Yes 296mL Take 296 Ricardo sey Citrate 9-15 mL by Seybold oral 15:00: mouth once Solution 22 Potassium Yes 1{tbl} Take 1 Yara ey 99 MG oral 9-15 tablet by Seyb old Tablet 15:00: mouth 22 daily GLUCOSAMINE 0 Yes 1{capsu Take 1 K elsey -FISH 9-15 le} capsule by Seybold OIL-EPA-DHA 15:00: mouth OR 22 daily Aspirin 81 0 Yes 1{capsu Take 1 Ke lsey MG oral 9-15 le} capsule by Seybol d Capsule 15:00: mouth 22 daily Magnesium Yes 296mL Take 296 Ricardo sey Citrate 9-15 mL by Seybold oral 15:00: mouth once Solution 22 SitaGLIPtin 2020- No 2{tbl} Take 2 K elsey -MetFORMIN 9-15 09-15 tablets by Se ybold HCl 50-1000 14:56: 00:00 mouth MG oral 19 :00 TABLET SR 24 HR linaCLOtide Yes [id number] 145ug Take 1 Yanely (Linzess) 9-15 capsule Seybold 145 MCG 00:00: (145 mcg oral 00 total) by Capsule mouth daily linaCLOtide Yes [id number] 145ug Take 1 Yanely (Linzess) 9-15 capsule Seybold 145 MCG 00:00: (145 mcg oral 00 total) by Capsule mouth daily linaCLOtide Yes [id number] 145ug Take 1 Yanely (Linzess) 9-15 capsule Seybold 145 MCG 00:00: (145 mcg oral 00 total) by Capsule mouth daily linaCLOtide Yes [id number] 145ug Take 1 Yanely (Linzess) 9-15 capsule Seybold 145 MCG 00:00: (145 mcg oral 00 total) by Capsule mouth daily linaCLOtide Yes [id number] 145ug Take 1 Yanely (Linzess) 9-15 capsule Seybold 145 MCG 00:00: (145 mcg oral 00 total) by Capsule mouth daily linaCLOtide Yes [id number] 145ug Take 1 Yanely (Linzess) 9-15 capsule Seybold 145 MCG 00:00: (145 mcg oral 00 total) by Capsule mouth daily linaCLOtide Yes [id number] 145ug Take 1 Yanely (Linzess) 9-15 capsule Seybold 145 MCG 00:00: (145 mcg oral 00 total) by Capsule mouth daily linaCLOtide Yes [id number] 145ug Take 1 Yanely (Linzess) 9-15 capsule Seybold 145 MCG 00:00: (145 mcg oral 00 total) by Capsule mouth daily linaCLOtide Yes [id number] 145ug Take 1 Yanely (Linzess) 9-15 capsule Seybold 145 MCG 00:00: (145 mcg oral 00 total) by Capsule mouth daily linaCLOtide Yes [id number] 145ug Take 1 Yanely (Linzess) 9-15 capsule Seybold 145 MCG 00:00: (145 mcg oral 00 total) by Capsule mouth daily linaCLOtide Yes [id number] 145ug Take 1 Yanely (Linzess) 9-15 capsule Seybold 145 MCG 00:00: (145 mcg oral 00 total) by Capsule mouth daily Sod Yes [id number] Instructio Ke lsey Picosulfate 9-15 n given to Se ybold -Mag Ox-Cit 00:00: patient in [facility] 00 clinic. (Clenpiq) Use as 10-3.5-12 directed MG-GM by -GM/160ML provider oral during Solution office visit. linaCLOtide Yes [id number] 145ug Take 1 Yanely (Linzess) 9-15 capsule Seybold 145 MCG 00:00: (145 mcg oral 00 total) by Capsule mouth daily Bevacizumab 2020- No [id number] 1.25mg Yanely (AVASTIN) 02-12 Seybold 100 mg/4 mL 19:15: 19:17 - Physician 00 :00 Administere d (J9035) Bevacizumab 2020- No [id number] 1.25mg 1.25 mg, Yanely (AVASTIN) 02-12 Physician Seyb old 100 mg/4 mL 19:15: 19:17 Administer - Physician 00 :00 ed, ONCE, Administere 1 dose, On d (J9035) Mon02/12/21 at 1415 SitaGLIPtin Yes 2{tbl} Take 2 Ke lsey -MetFORMIN 9-10 tablets by y bold HCl 50-1000 13:38: mouth MG oral 10 TABLET SR 24 HR Pravastatin Yes Yanely Sodium 40 7-22 Seybold MG oral 00:00: Tablet 00 Pravastatin Yes Yanely Sodium 40 7-22 Seybold MG oral 00:00: Tablet 00 Pravastatin Yes Yanely Sodium 40 7-22 Seybold MG oral 00:00: Tablet 00 Pravastatin 2020- No Kelse y Sodium 40 7-22 10-11 Seybold MG oral 00:00: 00:00 Tablet 00 :00 Gabapentin 2021-0 Yes 1{capsu Take 1 Ke lsey 100 MG oral 7-08 le} capsule by Se ybold Capsule 00:00: mouth 2 00 times daily Gabapentin 2021-0 Yes 1{capsu Take 1 Ke lsey 100 MG oral 7-08 le} capsule by Se ybold Capsule 00:00: mouth 2 00 times daily Gabapentin 2021-0 Yes 1{capsu Take 1 Ke lsey 100 MG oral 7-08 le} capsule by Se ybold Capsule 00:00: mouth 2 00 times daily Gabapentin 2021-0 Yes 1{capsu Take 1 Ke lsey 100 MG oral 7-08 le} capsule by Se ybold Capsule 00:00: mouth 2 00 times daily Gabapentin 2021-0 Yes 1{capsu Take 1 Ke lsey 100 MG oral 7-08 le} capsule by Se ybold Capsule 00:00: mouth 00 daily Gabapentin 2021-0 Yes 1{capsu Take 1 Ke lsey 100 MG oral 7-08 le} capsule by Se ybold Capsule 00:00: mouth 2 00 times daily Duloxetine 2021-0 Yes Yanely HCl 30 MG 7-[address] 00:00: Particles 00 Duloxetine 2021-0 Yes Yanely HCl 30 MG 7-[address] 00:00: Particles 00 Duloxetine 2021-0 Yes Yanely HCl 30 MG 7-[address] 00:00: Particles 00 Duloxetine 2021-0 Yes Yanely HCl 30 MG 7-[address] 00:00: Particles 00 Duloxetine 2021-0 Yes Yanely HCl 30 MG 7-[address] 00:00: Particles 00 Duloxetine 2021-0 Yes Yanely HCl 30 MG 7-[address] 00:00: Particles 00 Duloxetine 2021-0 Yes Yanely HCl 30 MG 7-[address] 00:00: Particles 00 Duloxetine 2021-0 Yes Yanely HCl 30 MG 7-[address] 00:00: Particles 00 Duloxetine 2021-0 Yes Yanely HCl 30 MG 7-[address] 00:00: Particles 00 Duloxetine 2021-0 Yes Yanely HCl 30 MG 7-[address] 00:00: Particles 00 [place] Yes 1{tbl} Take 1 Yanely 50-1000 MG 7-02 tablet by Seyb old oral Tablet 00:00: mouth 00 daily Duloxetine 0 Yes Yanely HCl 30 MG 7-[address] 00:00: Particles 00 Duloxetine 0 Yes Yanely HCl 30 MG 7-[address] 00:00: Particles 00 [place] Yes 2{tbl} Take 2 Yanely 50-1000 MG 7-02 tablets by Sey bold oral Tablet 00:00: mouth 00 daily Duloxetine Yes Yanely HCl 30 MG 7-[address] 00:00: Particles 00 [place] Yes 2{tbl} Take 2 Yanely 50-1000 MG 7-02 tablets by Sey bold oral Tablet 00:00: mouth 00 daily [place] 2020- No 2{tbl} Take 2 Kelse y 50-1000 MG 7-02 10-11 tablets by Se ybold oral Tablet 00:00: 00:00 mouth 00 :00 daily Clonidine 0 Yes 1{tbl} Take 1 Yara ey HCl 0.1 MG 6-05 tablet by Seyb old oral Tablet 00:00: mouth 2 00 times daily Clonidine 0 Yes 1{tbl} Take 1 Yara ey HCl 0.1 MG 6-05 tablet by Seyb old oral Tablet 00:00: mouth 2 00 times daily Clonidine 0 Yes 1{tbl} Take 1 Yara ey HCl 0.1 MG 6-05 tablet by Seyb old oral Tablet 00:00: mouth 2 00 times daily Clonidine 0 Yes 1{tbl} Take 1 Yara ey HCl 0.1 MG 6-05 tablet by Seyb old oral Tablet 00:00: mouth 2 00 times daily Clonidine 2020-0 Yes 1{tbl} Take 1 Yara ey HCl 0.1 MG 6-05 tablet by Seyb old oral Tablet 00:00: mouth 2 00 times daily Clonidine 0 Yes 1{tbl} Take 1 Yara ey HCl 0.1 MG 6-05 tablet by Seyb old oral Tablet 00:00: mouth 2 00 times daily Clonidine 2021-0 Yes 1{tbl} Take 1 Yara ey HCl 0.1 MG 6-05 tablet by Seyb old oral Tablet 00:00: mouth 2 00 times daily Clonidine 2021-0 Yes 1{tbl} Take 1 Yara ey HCl 0.1 MG 6-05 tablet by Seyb old oral Tablet 00:00: mouth 2 00 times daily Clonidine 2021-0 Yes 1{tbl} Take 1 Yara ey HCl 0.1 MG 6-05 tablet by Seyb old oral Tablet 00:00: mouth 2 00 times daily Clonidine 2021-0 Yes 1{tbl} Take 1 Yara ey HCl 0.1 MG 6-05 tablet by Seyb old oral Tablet 00:00: mouth 2 00 times daily Clonidine 202-0 Yes 1{tbl} Take 1 Yara ey HCl 0.1 MG 6-05 tablet by Seyb old oral Tablet 00:00: mouth 00 daily Clonidine 2021-0 Yes 1{tbl} Take 1 Yara ey HCl 0.1 MG 6-05 tablet by Seyb old oral Tablet 00:00: mouth 2 00 times daily Clonidine 1-0 Yes 1{tbl} Take 1 Yara ey HCl 0.1 MG 6-05 tablet by Seyb old oral Tablet 00:00: mouth 2 - 00 times Externa daily l Clonidine 2021-0 Yes 1{tbl} Take 1 Yara ey HCl 0.1 MG 6-05 tablet by Seyb old oral Tablet 00:00: mouth 2 - 00 times Externa daily l Clonidine 2021-0 Yes 1{tbl} Take 1 Yaar ey HCl 0.1 MG 6-05 tablet by Seyb old oral Tablet 00:00: mouth 2 - 00 times Externa daily l Clonidine 2021-0 Yes 1{tbl} Take 1 Yara ey HCl 0.1 MG 6-05 tablet by Seyb old oral Tablet 00:00: mouth 2 - 00 times Externa daily l Clonidine 2021-0 Yes 1{tbl} Take 1 Yara ey HCl 0.1 MG 6-05 tablet by Seyb old oral Tablet 00:00: mouth 2 00 times daily Clonidine 2021-0 2023- No 1{tbl} Take 1 Ricardo sey HCl 0.1 MG 6-05 02-16 tablet by Sey bold oral Tablet 00:00: 00:00 mouth 2 - 00 :00 times Externa daily l Insulin 2020- No 100U/d Inject 100 K elsey Glargine, 1 4-05 10-11 units/day Se ybold Unit Dial, 00:00: 00:00 into the ([place] 00 :00 skin daily SoloStar) 300 UNIT/ML subcutaneou s Solution Pen-injecto r Insulin 2020- No 100U/d Inject 100 K elsey Glargine, 1 4-05 10-03 units/day Se ybold Unit Dial, 00:00: 04:59 into the ([place] 00 :00 skin daily SoloStar) 300 UNIT/ML subcutaneou s Solution Pen-injecto r Insulin 2020- No 100U/d Inject 100 K elsey Glargine, 1 4-05 10-03 units/day Se ybold Unit Dial, 00:00: 04:59 into the ([place] 00 :00 skin daily SoloStar) 300 UNIT/ML subcutaneou s Solution Pen-injecto r Insulin 2020- No 100U/d Inject 100 K elsey Glargine, 1 4-05 10-03 units/day Se ybold Unit Dial, 00:00: 04:59 into the ([place] 00 :00 skin daily SoloStar) 300 UNIT/ML subcutaneou s Solution Pen-injecto r carvedilol 2020- No 25mg Take 25 mg [facility] 25 mg 1-15 01-15 by mouth 2 ity of tablet 12:05: 00:00 (two) [place] 06 :00 times Medical daily with Branch meals. SITagliptin Yes 2{tbl} Take 2 Un rafael -metformin 1-15 tablets by ity of (JANUMET 11:36: mouth at [place] XR) 23 bedtime. Medical 50-1,000 mg Branch per tablet SITagliptin Yes 2{tbl} Take 2 Un rafael -metformin 1-15 tablets by ity of (JANUMET 11:36: mouth at [place] XR) 23 bedtime. Medical 50-1,000 mg Branch per tablet SITagliptin Yes 2{tbl} Take 2 Un rafael -metformin 1-15 tablets by ity of (JANUMET 11:36: mouth at [place] XR) 23 bedtime. Medical 50-1,000 mg Branch per tablet SITagliptin Yes 2{tbl} Take 2 Un rafael -metformin 1-15 tablets by ity of (JANUMET 11:36: mouth at [place] XR) 23 bedtime. Medical 50-1,000 mg Branch per tablet SITagliptin Yes 2{tbl} Take 2 Un rafael -metformin 1-15 tablets by ity of (JANUMET 11:36: mouth at [place] XR) 23 bedtime. Medical 50-1,000 mg Branch per tablet SITagliptin Yes 2{tbl} Take 2 Un rafael -metformin 1-15 tablets by ity of (JANUMET 11:36: mouth at [place] XR) 23 bedtime. Medical 50-1,000 mg Branch per tablet SITagliptin Yes 2{tbl} Take 2 Un rafael -metformin 1-15 tablets by ity of (JANUMET 11:36: mouth at [place] XR) 23 bedtime. Medical 50-1,000 mg Branch per tablet SITagliptin Yes 2{tbl} Take 2 Un rafael -metformin 1-15 tablets by ity of (JANUMET 11:36: mouth at [place] XR) 23 bedtime. Medical 50-1,000 mg Branch per tablet SITagliptin Yes 2{tbl} Take 2 Un rafael -metformin 1-15 tablets by ity of (JANUMET 11:36: mouth at [place] XR) 23 bedtime. Medical 50-1,000 mg Branch per tablet SITagliptin Yes 2{tbl} Take 2 Un rafael -metformin 1-15 tablets by ity of (JANUMET 11:36: mouth at [place] XR) 23 bedtime. Medical 50-1,000 mg Branch per tablet insulin Yes 80U inject 80 Unive rs glargine,hu 1-15 Units ity of m.rec.anlog 11:20: under the [place] (TOUJEO MAX 29 skin every Me dical U-300 morning. Branch SOLOSTAR [place]) primidone Yes 50mg Take 50 mg Un rafael 50 mg 1-15 by mouth 2 ity of tablet 11:20: (two) [place] 29 times Medical daily. Branch amitriptyli 0 Yes 10mg Take 10 mg Univers ne 10 mg 1-15 by mouth ity of tablet 11:20: daily. Medical Branch allopurinol 0 Yes 100mg Take 100 U nivers 100 mg 1-15 mg by ity of tablet 11:20: mouth [place] 29 daily. Medical Branch insulin 0 Yes 80U inject 80 Unive rs glargine,hu 1-15 Units ity of m.rec.anlog 11:20: under the [place] (TOUJEO MAX 29 skin every Me dical U-300 morning. [facility]) primidone 0 Yes 50mg Take 50 mg Un rafael 50 mg 1-15 by mouth 2 ity of tablet 11:20: (two) 29 times Medical daily. Branch amitriptyli Yes 10mg Take 10 mg Univers ne 10 mg 1-15 by mouth ity of tablet 11:20: daily. [place] Medical Branch allopurinol 0 Yes 100mg Take 100 U nivers 100 mg 1-15 mg by ity of tablet 11:20: mouth [place] 29 daily. Medical Branch insulin 0 Yes 80U inject 80 Unive rs glargine,hu 1-15 Units ity of m.rec.anlog 11:20: under the [place] (TOUJEO MAX 29 skin every Me dical U-300 morning. [facility]) primidone 2020-0 Yes 50mg Take 50 mg Un rafael 50 mg 1-15 by mouth 2 ity of tablet 11:20: (two) [place] 29 times Medical daily. Branch amitriptyli 0 Yes 10mg Take 10 mg Univers ne 10 mg 1-15 by mouth ity of tablet 11:20: daily. [place] Medical Branch allopurinol 0 Yes 100mg Take 100 U nivers 100 mg 1-15 mg by ity of tablet 11:20: mouth [place] 29 daily. Medical Branch insulin 0 Yes 80U inject 80 Unive rs glargine,hu 1-15 Units ity of m.rec.anlog 11:20: under the [place] (TOUJEO MAX 29 skin every Me dical U-300 morning. Branch [facility]) primidone 0 Yes 50mg Take 50 mg Un rafael 50 mg 1-15 by mouth 2 ity of tablet 11:20: (two) [place] 29 times Medical daily. Branch amitriptyli 0 Yes 10mg Take 10 mg Univers ne 10 mg 1-15 by mouth ity of tablet 11:20: daily. Medical Branch allopurinol 0 Yes 100mg Take 100 U nivers 100 mg 1-15 mg by ity of tablet 11:20: mouth [place] 29 daily. Medical Branch insulin 0 Yes 80U inject 80 Unive rs glargine,hu 1-15 Units ity of m.rec.anlog 11:20: under the [place] (TOUJEO MAX 29 skin every Me dical U-300 morning. [facility]) primidone 2020-0 Yes 50mg Take 50 mg Un rafael 50 mg 1-15 by mouth 2 ity of tablet 11:20: (two) 29 times Medical daily. Branch amitriptyli 0 Yes 10mg Take 10 mg Univers ne 10 mg 1-15 by mouth ity of tablet 11:20: daily. Medical Branch allopurinol 0 Yes 100mg Take 100 U nivers 100 mg 1-15 mg by ity of tablet 11:20: mouth [place] 29 daily. Medical Branch insulin 0 Yes 80U inject 80 Unive rs glargine,hu 1-15 Units ity of m.rec.anlog 11:20: under the [place] (TOUJEO MAX 29 skin every Me dical U-300 morning. [facility]) primidone 2020-0 Yes 50mg Take 50 mg Un rafael 50 mg 1-15 by mouth 2 ity of tablet 11:20: (two) [place] 29 times Medical daily. Branch amitriptyli 0 Yes 10mg Take 10 mg Univers ne 10 mg 1-15 by mouth ity of tablet 11:20: daily. Medical Branch allopurinol 2020-0 Yes 100mg Take 100 U nivers 100 mg 1-15 mg by ity of tablet 11:20: mouth [place] 29 daily. Medical Branch insulin 0 Yes 80U inject 80 Unive rs glargine,hu 1-15 Units ity of m.rec.anlog 11:20: under the [place] (TOUJEO MAX 29 skin every Me dical U-300 morning. Branch SOLOSTMCLAREN FLINT) primidone 2020-0 Yes 50mg Take 50 mg Un rafael 50 mg 1-15 by mouth 2 ity of tablet 11:20: (two) 29 times Medical daily. Branch amitriptyli 0 Yes 10mg Take 10 mg Univers ne 10 mg 1-15 by mouth ity of tablet 11:20: daily. [place] Medical Branch allopurinol 0 Yes 100mg Take 100 U nivers 100 mg 1-15 mg by ity of tablet 11:20: mouth [place] 29 daily. Medical Branch insulin 0 Yes 80U inject 80 Unive rs glargine,hu 1-15 Units ity of m.rec.anlog 11:20: under the [place] (TOUJEO MAX 29 skin every Me dical U-300 morning. Branch SOLOSTMCLAREN FLINT) primidone 2020-0 Yes 50mg Take 50 mg Un rafael 50 mg 1-15 by mouth 2 ity of tablet 11:20: (two) 29 times Medical daily. Branch amitriptyli 0 Yes 10mg Take 10 mg Univers ne 10 mg 1-15 by mouth ity of tablet 11:20: daily. [place] [address] Medical Branch allopurinol 0 Yes 100mg Take 100 U nivers 100 mg 1-15 mg by ity of tablet 11:20: mouth 29 daily. Medical Branch insulin 0 Yes 80U inject 80 Unive rs glargine,hu 1-15 Units ity of m.rec.anlog 11:20: under the [place] (TOUJEO MAX 29 skin every Me dical U-300 morning. Branch SOLOSTAR SC) primidone 2020-0 Yes 50mg Take 50 mg Un rafael 50 mg 1-15 by mouth 2 ity of tablet 11:20: (two) 29 times Medical daily. Branch amitriptyli 2020-0 Yes 10mg Take 10 mg Univers ne 10 mg 1-15 by mouth ity of tablet 11:20: daily. [place] [address] Medical Branch allopurinol 2021-0 Yes 100mg Take 100 U nivers 100 mg 1-15 mg by ity of tablet 11:20: mouth [place] [address] daily. Medical Branch insulin Yes 80U inject 80 Unive rs glargine,hu 1-15 Units ity of m.rec.anlog 11:20: under the [place] (TOUJEO MAX 29 skin every Me dical U-300 morning. Branch SOLOSTAR SC) primidone Yes 50mg Take 50 mg Un rafael 50 mg 1-15 by mouth 2 ity of tablet 11:20: (two) [place] [address] times Medical daily. Branch amitriptyli Yes 10mg Take 10 mg Univers ne 10 mg 1-15 by mouth ity of tablet 11:20: daily. [address] Branch allopurinol Yes 100mg Take 100 U nivers 100 mg 1-15 mg by ity of tablet 11:20: mouth [place] [address] daily. Medical Branch Furosemide Yes 40mg Take 40 mg K elsey 40 MG oral 1-15 by mouth Seybo ld Tablet 00:00: daily 00 hydrALAZINE 0 Yes 50mg Take 50 mg Yanely HCl 50 MG 1-15 by mouth 2 Seyb old oral Tablet 00:00: times 00 daily Furosemide 0 Yes 40mg Take 40 mg K elsey 40 MG oral 1-15 by mouth Seybo ld Tablet 00:00: daily 00 hydrALAZINE 0 Yes 50mg Take 50 mg Yanely HCl 50 MG 1-15 by mouth 2 Seyb old oral Tablet 00:00: times 00 daily Furosemide 0 Yes 40mg Take 40 mg K elsey 40 MG oral 1-15 by mouth Seybo ld Tablet 00:00: daily 00 Furosemide 0 Yes 40mg Take 40 mg K elsey 40 MG oral 1-15 by mouth Seybo ld Tablet 00:00: daily 00 hydrALAZINE 0 Yes 50mg Take 50 mg Yanely HCl 50 MG 1-15 by mouth 2 Seyb old oral Tablet 00:00: times 00 daily Furosemide 0 Yes 40mg Take 40 mg K elsey 40 MG oral 1-15 by mouth Seybo ld Tablet 00:00: daily 00 hydrALAZINE 0 Yes 50mg Take 50 mg Yanely HCl 50 MG 1-15 by mouth 2 Seyb old oral Tablet 00:00: times 00 daily Carvedilol 2020-0 Yes 25mg Take 25 mg K elsey 25 MG oral 1-15 by mouth 2 Sey bold Tablet 00:00: times 00 daily (with meals) carvediloL 2020-0 Yes [id number] 25mg Take 1 U nivers 25 mg 1-15 tablet by ity of tablet 00:00: mouth 2 [place] 00 (two) Medical times Branch daily with meals. hydrALAZINE 2020-0 Yes 50mg Take 50 mg Yanely HCl 50 MG 1-15 by mouth 2 Seyb old oral Tablet 00:00: times 00 daily Furosemide 2020-0 Yes 40mg Take 40 mg K elsey 40 MG oral 1-15 by mouth Seybo ld Tablet 00:00: daily 00 Externa l hydrALAZINE 2020-0 Yes 50mg Take 50 mg Yanely HCl 50 MG 1-15 by mouth 2 Seyb old oral Tablet 00:00: times - 00 daily Externa l Furosemide 2020-0 Yes 40mg Take 40 mg K elsey 40 MG oral 1-15 by mouth Seybo ld Tablet 00:00: daily 00 Externa l hydrALAZINE 2020-0 Yes 50mg Take 50 mg Yanely HCl 50 MG 1-15 by mouth 2 Seyb old oral Tablet 00:00: times - 00 daily Externa l Furosemide 2020-0 Yes 40mg Take 40 mg K elsey 40 MG oral 1-15 by mouth Seybo ld Tablet 00:00: daily 00 Externa l hydrALAZINE 2020-0 Yes 50mg Take 50 mg Yanely HCl 50 MG 1-15 by mouth 2 Seyb old oral Tablet 00:00: times - 00 daily Externa l Furosemide 2020-0 Yes 40mg Take 40 mg K elsey 40 MG oral 1-15 by mouth Seybo ld Tablet 00:00: daily 00 Furosemide 2020-0 Yes 40mg Take 40 mg K elsey 40 MG oral 1-15 by mouth Seybo ld Tablet 00:00: daily 00 Externa l hydrALAZINE 2020-0 Yes 50mg Take 50 mg Yanely HCl 50 MG 1-15 by mouth 2 Seyb old oral Tablet 00:00: times - 00 daily Externa l hydrALAZINE 2021-0 Yes [id number] 50mg Take 1 Univers 50 mg 1-15 tablet by ity of tablet 00:00: mouth 2 [place] 00 (two) Medical times Branch daily. Carvedilol Yes 25mg Take 25 mg K elsey 25 MG oral 1-15 by mouth 2 Sey bold Tablet 00:00: times 00 daily (with meals) hydrALAZINE Yes 50mg Take 50 mg Yanely HCl 50 MG 1-15 by mouth 2 Seyb old oral Tablet 00:00: times 00 daily Furosemide Yes 40mg Take 40 mg K elsey 40 MG oral 1-15 by mouth 2 Sey bold Tablet 00:00: times - 00 daily 1 in Externa am and 1 l in pm hydrALAZINE Yes 50mg Take 50 mg Yanely HCl 50 MG 1-15 by mouth 3 Seyb old oral Tablet 00:00: times - 00 daily Externa l hydrALAZINE Yes 50mg Take 50 mg Yanely HCl 50 MG 1-15 by mouth 3 Seyb old oral Tablet 00:00: times - 00 daily Externa l hydrALAZINE Yes 50mg Take 1 Yara ey HCl 50 MG 1-15 tablet (50 Seyb old oral Tablet 00:00: mg total) - 00 by mouth 3 Externa times l daily. hydrALAZINE Yes 50mg Take 1 Yara ey HCl 50 MG 1-15 tablet (50 Seyb old oral Tablet 00:00: mg total) - 00 by mouth 3 Externa times l daily. Furosemide Yes 40mg Take 40 mg K elsey 40 MG oral 1-15 by mouth Seybo ld Tablet 00:00: daily 00 hydrALAZINE 0 Yes 50mg Take 1 Yara ey HCl 50 MG 1-15 tablet (50 Seyb old oral Tablet 00:00: mg total) - 00 by mouth 3 Externa times l daily. pravastatin Yes [id number] 40mg Take 1 Univers 40 mg 1-15 tablet by ity of tablet 00:00: mouth at [place] 00 bedtime. Medical Branch furosemide Yes [id number] 40mg Take 1 U nivers 40 mg 1-15 tablet by ity of tablet 00:00: mouth [place] 00 daily. Medical Branch cloNIDine 2020-0 Yes [id number] .1mg Take 1 Un rafael 0.1 mg 1-15 tablet by ity of tablet 00:00: mouth 2 (two) Medical times Branch daily. carvediloL 2020-0 Yes [id number] 25mg Take 1 U nivers 25 mg 1-15 tablet by ity of tablet 00:00: mouth 2 (two) Medical times Branch daily with meals. hydrALAZINE 2020-0 Yes [id number] 50mg Take 1 Univers 50 mg 1-15 tablet by ity of tablet 00:00: mouth 2 (two) Medical times Branch daily. pravastatin 2020-0 Yes [id number] 40mg Take 1 Univers 40 mg 1-15 tablet by ity of tablet 00:00: mouth at [place] bedtime. Medical Branch furosemide 2020-0 Yes [id number] 40mg Take 1 U nivers 40 mg 1-15 tablet by ity of tablet 00:00: mouth 00 daily. Medical Branch cloNIDine 2020-0 Yes [id number] .1mg Take 1 Un rafael 0.1 mg 1-15 tablet by ity of tablet 00:00: mouth (two) Medical times Branch daily. carvediloL 2020-0 Yes [id number] 25mg Take 1 U nivers 25 mg 1-15 tablet by ity of tablet 00:00: mouth (two) Medical times Branch daily with meals. hydrALAZINE 2020-0 Yes [id number] 50mg Take 1 Univers 50 mg 1-15 tablet by ity of tablet 00:00: mouth (two) Medical times Branch daily. pravastatin 2020-0 Yes [id number] 40mg Take 1 Univers 40 mg 1-15 tablet by ity of tablet 00:00: mouth at [place] 00 bedtime. Medical Branch furosemide 2020-0 Yes [id number] 40mg Take 1 U nivers 40 mg 1-15 tablet by ity of tablet 00:00: mouth 00 daily. Medical Branch carvediloL 2020-0 Yes [id number] 25mg Take 1 U nivers 25 mg 1-15 tablet by ity of tablet 00:00: mouth 2 (two) Medical times Branch daily with meals. hydrALAZINE 2020-0 Yes [id number] 50mg Take 1 Univers 50 mg 1-15 tablet by ity of tablet 00:00: mouth 2 (two) Medical times Branch daily. pravastatin 2020-0 Yes [id number] 40mg Take 1 [facility] 40 mg 1-15 tablet by ity of tablet 00:00: mouth at [place] 00 bedtime. Medical Branch furosemide 2020-0 Yes [id number] 40mg Take 1 U nivers 40 mg 1-15 tablet by ity of tablet 00:00: mouth 00 daily. Medical Branch carvediloL 2020-0 Yes [id number] 25mg Take 1 U nivers 25 mg 1-15 tablet by ity of tablet 00:00: mouth (two) Medical times Branch daily with meals. hydrALAZINE 2020-0 Yes [id number] 50mg Take 1 Univers 50 mg 1-15 tablet by ity of tablet 00:00: mouth (two) Medical times Branch daily. pravastatin 2020-0 Yes [id number] 40mg Take 1 Univers 40 mg 1-15 tablet by ity of tablet 00:00: mouth at [place] 00 bedtime. Medical Branch furosemide 2020-0 Yes [id number] 40mg Take 1 U nivers 40 mg 1-15 tablet by ity of tablet 00:00: mouth 00 daily. Medical Branch carvediloL 2020-0 Yes [id number] 25mg Take 1 U nivers 25 mg 1-15 tablet by ity of tablet 00:00: mouth (two) Medical times Branch daily with meals. hydrALAZINE 2020-0 Yes [id number] 50mg Take 1 Univers 50 mg 1-15 tablet by ity of tablet 00:00: mouth 2 (two) Medical times Branch daily. pravastatin 2020-0 Yes [id number] 40mg Take 1 [facility] 40 mg 1-15 tablet by ity of tablet 00:00: mouth at [place] 00 bedtime. Medical Branch furosemide 2020-0 Yes [id number] 40mg Take 1 U nivers 40 mg 1-15 tablet by ity of tablet 00:00: mouth 00 daily. Medical Branch carvediloL 2020-0 Yes [id number] 25mg Take 1 U nivers 25 mg 1-15 tablet by ity of tablet 00:00: mouth 2 (two) Medical times Branch daily with meals. hydrALAZINE 2020-0 Yes [id number] 50mg Take 1 Univers 50 mg 1-15 tablet by ity of tablet 00:00: mouth (two) Medical times Branch daily. pravastatin 2020-0 Yes [id number] 40mg Take 1 Univers 40 mg 1-15 tablet by ity of tablet 00:00: mouth at [place] bedtime. Medical Branch furosemide 2020-0 Yes [id number] 40mg Take 1 U nivers 40 mg 1-15 tablet by ity of tablet 00:00: mouth 00 daily. Medical Branch carvediloL 2020-0 Yes [id number] 25mg Take 1 U nivers 25 mg 1-15 tablet by ity of tablet 00:00: mouth (two) Medical times Branch daily with meals. hydrALAZINE 0 Yes [id number] 50mg Take 1 Univers 50 mg 1-15 tablet by ity of tablet 00:00: mouth (two) Medical times Branch daily. pravastatin 2020-0 Yes [id number] 40mg Take 1 [facility] 40 mg 1-15 tablet by ity of tablet 00:00: mouth at [place] bedtime. Medical Branch furosemide 2020-0 Yes [id number] 40mg Take 1 U nivers 40 mg 1-15 tablet by ity of tablet 00:00: mouth 00 daily. Medical Branch cloNIDine 2020-0 Yes [id number] .1mg Take 1 Un rafael 0.1 mg 1-15 tablet by ity of tablet 00:00: mouth (two) Medical times Branch daily. carvediloL 2020-0 Yes [id number] 25mg Take 1 U nivers 25 mg 1-15 tablet by ity of tablet 00:00: mouth (two) Medical times Branch daily with meals. hydrALAZINE 2020-0 Yes [id number] 50mg Take 1 [facility] 50 mg 1-15 tablet by ity of tablet 00:00: mouth 2 (two) Medical times Branch daily. pravastatin 2020-0 Yes [id number] 40mg Take 1 [facility] 40 mg 1-15 tablet by ity of tablet 00:00: mouth at [place] 00 bedtime. Medical Branch furosemide 2020-0 Yes [id number] 40mg Take 1 U nivers 40 mg 1-15 tablet by ity of tablet 00:00: mouth [place] 00 daily. Medical Branch cloNIDine 2020- Yes [id number] .1mg Take 1 Un rafael 0.1 mg 1-15 tablet by ity of tablet 00:00: mouth 2 [place] (two) Medical times Branch daily. carvediloL Yes [id number] 25mg Take 1 U nivers 25 mg 1-15 tablet by ity of tablet 00:00: mouth 2 [place] (two) Medical times Branch daily with meals. hydrALAZINE Yes [id number] 50mg Take 1 [facility] 50 mg 1-15 tablet by ity of tablet 00:00: mouth 2 [place] (two) Medical times Branch daily. pravastatin Yes [id number] 40mg Take 1 [facility] 40 mg 1-15 tablet by ity of tablet 00:00: mouth at [place] 00 bedtime. Medical Branch furosemide Yes [id number] 40mg Take 1 U nivers 40 mg 1-15 tablet by ity of tablet 00:00: mouth [place] 00 daily. Medical Branch cloNIDine Yes [id number] .1mg Take 1 Un rafael 0.1 mg 1-15 tablet by ity of tablet 00:00: mouth [place] (two) Medical times Branch daily. Carvedilol Yes 25mg Take 25 mg K elsey 25 MG oral 1-15 by mouth 2 Sey bold Tablet 00:00: times 00 daily (with meals) hydrALAZINE Yes 50mg Take 50 mg Yanely HCl 50 MG 1-15 by mouth 2 Seyb old oral Tablet 00:00: times 00 daily Furosemide Yes 40mg Take 40 mg K elsey 40 MG oral 1-15 by mouth Seybo ld Tablet 00:00: daily 00 Carvedilol Yes 25mg Take 25 mg K elsey 25 MG oral 1-15 by mouth 2 Sey bold Tablet 00:00: times 00 daily (with meals) hydrALAZINE Yes 50mg Take 50 mg Yanely HCl 50 MG 1-15 by mouth 2 Seyb old oral Tablet 00:00: times 00 daily Furosemide Yes 40mg Take 40 mg K elsey 40 MG oral 1-15 by mouth Seybo ld Tablet 00:00: daily 00 Carvedilol 2020-0 Yes 25mg Take 25 mg K elsey 25 MG oral 1-15 by mouth 2 Sey bold Tablet 00:00: times 00 daily (with meals) hydrALAZINE 2020-0 Yes 50mg Take 50 mg Yanely HCl 50 MG 1-15 by mouth 2 Seyb old oral Tablet 00:00: times 00 daily Furosemide 2020-0 Yes 40mg Take 40 mg K elsey 40 MG oral 1-15 by mouth Seybo ld Tablet 00:00: daily 00 Carvedilol 2020-0 Yes 25mg Take 25 mg K elsey 25 MG oral 1-15 by mouth 2 Sey bold Tablet 00:00: times 00 daily (with meals) hydrALAZINE 2020-0 Yes 50mg Take 50 mg Yanely HCl 50 MG 1-15 by mouth 2 Seyb old oral Tablet 00:00: times 00 daily Furosemide 2020-0 Yes 40mg Take 40 mg K elsey 40 MG oral 1-15 by mouth Seybo ld Tablet 00:00: daily 00 Carvedilol 2020-0 Yes 25mg Take 25 mg K elsey 25 MG oral 1-15 by mouth 2 Sey bold Tablet 00:00: times 00 daily (with meals) hydrALAZINE 2020-0 Yes 50mg Take 50 mg Yanely HCl 50 MG 1-15 by mouth 2 Seyb old oral Tablet 00:00: times 00 daily Furosemide 2020-0 Yes 40mg Take 40 mg K elsey 40 MG oral 1-15 by mouth Seybo ld Tablet 00:00: daily 00 Carvedilol 2020-0 Yes 25mg Take 25 mg K elsey 25 MG oral 1-15 by mouth 2 Sey bold Tablet 00:00: times 00 daily (with meals) hydrALAZINE 2020-0 Yes 50mg Take 50 mg Yanely HCl 50 MG 1-15 by mouth 2 Seyb old oral Tablet 00:00: times 00 daily Furosemide 2020-0 Yes 40mg Take 40 mg K elsey 40 MG oral 1-15 by mouth Seybo ld Tablet 00:00: daily 00 hydrALAZINE 2020-0 Yes 50mg Take 50 mg Yanely HCl 50 MG 1-15 by mouth 2 Seyb old oral Tablet 00:00: times 00 daily Furosemide 2022- No 40mg Take 40 mg Yanely 40 MG oral 115 07-14 by mouth 2 Se ybold Tablet 00:00: 00:00 times - 00 :00 daily 1 in Externa am and 1 l in pm cloNIDine 2021- No [id number] .1mg Take 1 U nivers 0.1 mg 06-19 03-16 tablet by ity of tablet 00:00: 00:00 mouth 2 [place] 00 :00 (two) Medical times Branch daily. cloNIDine 2020- No .1mg Take 1 Unive rs 0.1 mg 06-1615 tablet by ity of tablet 00:00: 00:00 mouth 2 [place] 00 :00 (two) Medical times Branch daily. Need appointmen t and EKG for further refills. Please contact office. furosemide 2020- No 40mg Take 1 Univ ers 40 mg 06-1615 tablet by ity of tablet 00:00: 00:00 mouth [place] 00 :00 daily. Medical Branch gabapentin 2020-0 Yes 3 (three) Un rafael 100 mg 1-06 times ity of capsule 00:00: daily. [place] [facility] gabapentin 2020-0 Yes 3 (three) Un rafael 100 mg 1-06 times ity of capsule 00:00: daily. [place] [facility] gabapentin 2020-0 Yes 3 (three) Un rafael 100 mg 1-06 times ity of capsule 00:00: daily. [place] [facility] Branch gabapentin 2021-0 Yes 3 (three) Un rafael 100 mg 1-06 times ity of capsule 00:00: daily. [place] [facility] Branch gabapentin 2021-0 Yes 3 (three) Un rafael 100 mg 1-06 times ity of capsule 00:00: daily. [place] [facility] Branch gabapentin 2021-0 Yes 3 (three) Un rafael 100 mg 1-06 times ity of capsule 00:00: daily. [place] [facility] Branch gabapentin 2021-0 Yes 3 (three) Un rafael 100 mg 1-06 times ity of capsule 00:00: daily. [address] gabapentin 2021-0 Yes 3 (three) Un rafael 100 mg 1-06 times ity of capsule 00:00: daily. [place] [facility] gabapentin 2021-0 Yes 3 (three) Un rafael 100 mg 1-06 times ity of capsule 00:00: daily. [place] [facility] gabapentin Yes 3 (three) Un rafael 100 mg 1-06 times ity of capsule 00:00: daily. [place] [facility] pravastatin 2019-06- No [id number] 40mg Take 1 Univers 40 mg 2-16 01-15 tablet by ity of tablet 00:00: 00:00 mouth at [place] 00 :00 bedtime. Medical Branch hydrALAZINE 2020- No 50mg Take 1 Uni vers 50 mg 5-18 01-15 tablet by ity of tablet 00:00: 00:00 mouth [place] 00 :00 every 8 Medical (eight) Branch hours. Immunizations Ordered Immunization Filled Immunization Date Status Commen ts Source Name Name Pneumococcal 2022-12-16 Completed Yanely Ahmadiybo ld - Conjugate 15 00:00:00 External (Vaxneuvance) Pneumococcal 2022-12-16 Completed Yanely Minor ld - Conjugate 15 00:00:00 External (Vaxneuvance) Pneumococcal 2022-12-16 Completed Yanely Ahmadiybo ld - Conjugate 15 00:00:00 External (Vaxneuvance) Pneumococcal 2022-12-16 Completed Yanely Ahmadiybo ld - Conjugate 15 00:00:00 External (Vaxneuvance) Influenza Virus 2022-02-03 Completed Yanely mathias - Vaccine, age 6 months 00:00:00 Ext ernal and up COVID-19 VACCINE 2022-02-03 Completed Yanely salcedobold - PFIZER 12+ ([place] cap) 00:00:00 Ext ernal Influenza Virus 2022-02-03 Completed Yanely mathias - Vaccine, age 6 months 00:00:00 Ext ernal and up COVID-19 VACCINE 2022-02-03 Completed Yanely Avendaño eybold - PFIZER 12+ ([place] cap) 00:00:00 Ext ernal Influenza Virus 2022-02-03 Completed Yanely mathias - Vaccine, age 6 months 00:00:00 Ext ernal and up COVID-19 VACCINE 2022-02-03 Completed Yanely Avendaño eybold - PFIZER 12+ ([place] cap) 00:00:00 Ext ernal Influenza Virus 2022-02-03 Completed Yanely Se ybold - Vaccine, age 6 months 00:00:00 Ext ernal and up COVID-19 VACCINE 2022-02-03 Completed Yanely Avendaño eybold - PFIZER 12+ ([place] cap) 00:00:00 Ext ernal Influenza Virus 2022-02-03 Completed Yanely johnsonold - Vaccine, age 6 months 00:00:00 Ext ernal and up COVID-19 VACCINE 2022-02-03 Completed Yanely Avendaño eybold - PFIZER 12+ ([place] cap) 00:00:00 Ext ernal Influenza Virus 2022-02-03 Completed Yanely johnsonold - Vaccine, age 6 months 00:00:00 Ext ernal and up COVID-19 VACCINE 2022-02-03 Completed Yanely Avendaño eybold - PFIZER 12+ ([place] cap) 00:00:00 Ext ernal Influenza Virus 2022-02-03 Completed Yanely johnsonold - Vaccine, age 6 months 00:00:00 Ext ernal and up COVID-19 VACCINE 2022-02-03 Completed Yanely Avendaño eybold - PFIZER 12+ ([place] cap) 00:00:00 Ext ernal Influenza Virus 2022-02-03 Completed Yanely johnsonold - Vaccine, age 6 months 00:00:00 Ext ernal and up COVID-19 VACCINE 2022-02-03 Completed Yanely Avendaño eybold - PFIZER 12+ ([place] cap) 00:00:00 Ext ernal Influenza Virus 2022-02-03 Completed Yanely johnsonold - Vaccine, age 6 months 00:00:00 Ext ernal and up COVID-19 VACCINE 2022-02-03 Completed Yanely Avendaño eybold - PFIZER 12+ ([place] cap) 00:00:00 Ext ernal Covid-19 Vaccine 2020-09-09 Completed Yanely macias - Moderna (Spikevax), 00:00:00 Exter nal Mrna-lnp, Jesse Protein, Pf Covid-19 Vaccine 2020-09-09 Completed Yanely macias (Moderna), Mrna-lnp, 00:00:00 Jesse Protein, Pf, 100 Mcg/0.5ml,IM Covid-19 Vaccine 2020-09-09 Completed Yanely macias (Moderna), Mrna-lnp, 00:00:00 Jesse Protein, Pf, 100 Mcg/0.5ml,IM Covid-19 Vaccine 2020-09-09 Completed Yanely Avendaño eybold (Moderna), Mrna-lnp, 00:00:00 Jesse Protein, Pf, 100 Mcg/0.5ml,IM Covid-19 Vaccine 2020-09-09 Completed Yanely Avendaño eybold (Moderna), Mrna-lnp, 00:00:00 Jesse Protein, Pf, 100 Mcg/0.5ml,IM Covid-19 Vaccine 2020-09-09 Completed Yanely Avendaño eybold (Moderna), Mrna-lnp, 00:00:00 Jesse Protein, Pf, 100 Mcg/0.5ml,IM Covid-19 Vaccine 2020-09-09 Completed Yanely salcedobold (Moderna), Mrna-lnp, 00:00:00 Jesse Protein, Pf, 100 Mcg/0.5ml,IM Covid-19 Vaccine 2020-09-09 Completed Yanely Avendaño matiasbold Moderna (Spikevax), 00:00:00 Mrna-lnp, Jesse Protein, Pf Covid-19 Vaccine 2020-09-09 Completed Yanely Avendaño eybold Moderna (Spikevax), 00:00:00 Mrna-lnp, Jesse Protein, Pf Covid-19 Vaccine 2020-09-09 Completed Yanely salcedobold Moderna (Spikevax), 00:00:00 Mrna-lnp, Jesse Protein, Pf Covid-19 Vaccine 2020-09-09 Completed aYnely Avendaño matiasbold Moderna (Spikevax), 00:00:00 Mrna-lnp, Jesse Protein, Pf Covid-19 Vaccine 2020-09-09 Completed Yanely Avendaño eybold Moderna (Spikevax), 00:00:00 Mrna-lnp, Jesse Protein, Pf Covid-19 Vaccine 2020-09-09 Completed Yanely Avendaño eybold (Moderna), Mrna-lnp, 00:00:00 Jesse Protein, Pf, 100 Mcg/0.5ml,IM Covid-19 Vaccine 2020-09-09 Completed Yanely Avendaño eybold - Moderna (Spikevax), 00:00:00 Exter nal Mrna-lnp, Jesse Protein, Pf Covid-19 Vaccine 2020-09-09 Completed Yanely Avendaño eybold - Moderna (Spikevax), 00:00:00 Exter nal Mrna-lnp, Jesse Protein, Pf Covid-19 Vaccine 2020-09-09 Completed Yanely macias - Moderna (Spikevax), 00:00:00 Exter nal Mrna-lnp, Jesse Protein, Pf Covid-19 Vaccine 2020-09-09 Completed Yanely Avendaño eyclaudia - Moderna (Spikevax), 00:00:00 Exter nal Mrna-lnp, Jesse Protein, Pf Covid-19 Vaccine 2020-09-09 Completed Yanely salcedobold - Moderna (Spikevax), 00:00:00 Exter nal Mrna-lnp, Jesse Protein, Pf Covid-19 Vaccine 2020-09-09 Completed Yanely macias (Moderna), Mrna-lnp, 00:00:00 Jesse Protein, Pf, 100 Mcg/0.5ml,IM Covid-19 Vaccine 2020-09-09 Completed Yanely macias - Moderna (Spikevax), 00:00:00 Exter nal Mrna-lnp, Jesse Protein, Pf Covid-19 Vaccine 2020-09-09 Completed Yanely macias - Moderna (Spikevax), 00:00:00 Exter nal Mrna-lnp, Jesse Protein, Pf Covid-19 Vaccine 2020-09-09 Completed Yanely Avendaño eyclaudia - Moderna (Spikevax), 00:00:00 Exter nal Mrna-lnp, Jesse Protein, Pf Covid-19 Vaccine 2020-08-12 Completed Yanely macias - Moderna (Spikevax), 00:00:00 Exter nal Mrna-lnp, Jesse Protein, Pf Covid-19 Vaccine 2020-08-12 Completed Yanely salcedobold (Moderna), Mrna-lnp, 00:00:00 Jesse Protein, Pf, 100 Mcg/0.5ml,IM Covid-19 Vaccine 2020-08-12 Completed Yanely Avendaño eybold (Moderna), Mrna-lnp, 00:00:00 Jesse Protein, Pf, 100 Mcg/0.5ml,IM Covid-19 Vaccine 2020-08-12 Completed Yanely gómezld (Moderna), Mrna-lnp, 00:00:00 Jesse Protein, Pf, 100 Mcg/0.5ml,IM Covid-19 Vaccine 2020-08-12 Completed Yanely macias (Moderna), Mrna-lnp, 00:00:00 Jesse Protein, Pf, 100 Mcg/0.5ml,IM Covid-19 Vaccine 2020-08-12 Completed Yanely macias (Moderna), Mrna-lnp, 00:00:00 Jesse Protein, Pf, 100 Mcg/0.5ml,IM Covid-19 Vaccine 2020-08-12 Completed Yanely macias (Moderna), Mrna-lnp, 00:00:00 Jesse Protein, Pf, 100 Mcg/0.5ml,IM Covid-19 Vaccine 2020-08-12 Completed Yanely macias Moderna (Spikevax), 00:00:00 Mrna-lnp, Jesse Protein, Pf Covid-19 Vaccine 2020-08-12 Completed Yanely macias Moderna (Spikevax), 00:00:00 Mrna-lnp, Jesse Protein, Pf Covid-19 Vaccine 2020-08-12 Completed Yanely macias Moderna (Spikevax), 00:00:00 Mrna-lnp, Jesse Protein, Pf Covid-19 Vaccine 2020-08-12 Completed Yanely macias Moderna (Spikevax), 00:00:00 Mrna-lnp, Jesse Protein, Pf Covid-19 Vaccine 2020-08-12 Completed Yanely macias Moderna (Spikevax), 00:00:00 Mrna-lnp, Jesse Protein, Pf Covid-19 Vaccine 2020-08-12 Completed Yanely macias (Moderna), Mrna-lnp, 00:00:00 Jesse Protein, Pf, 100 Mcg/0.5ml,IM Covid-19 Vaccine 2020-08-12 Completed Yanely macias - Moderna (Spikevax), 00:00:00 Exter nal Mrna-lnp, Jesse Protein, Pf Covid-19 Vaccine 2020-08-12 Completed Yanely Avendaño eyclaudia - Moderna (Spikevax), 00:00:00 Exter nal Mrna-lnp, Jesse Protein, Pf Covid-19 Vaccine 2020-08-12 Completed Yanely Avendaño eybold - Moderna (Spikevax), 00:00:00 Exter nal Mrna-lnp, Jesse Protein, Pf Covid-19 Vaccine 2020-08-12 Completed aYnely Avendaño eybold - Moderna (Spikevax), 00:00:00 Exter nal Mrna-lnp, Jesse Protein, Pf Covid-19 Vaccine 2020-08-12 Completed Yanely Avendaño eybold - Moderna (Spikevax), 00:00:00 Exter nal Mrna-lnp, Jesse Protein, Pf Covid-19 Vaccine 2020-08-12 Completed Yanely salcedobold (Moderna), Mrna-lnp, 00:00:00 Jesse Protein, Pf, 100 Mcg/0.5ml,IM Covid-19 Vaccine 2020-08-12 Completed Yanely Avendaño eybold - Moderna (Spikevax), 00:00:00 Exter nal Mrna-lnp, Jesse Protein, Pf Covid-19 Vaccine 2020-08-12 Completed Yanely salcedobold - Moderna (Spikevax), 00:00:00 Exter nal Mrna-lnp, Jesse Protein, Pf Covid-19 Vaccine 2020-08-12 Completed Yanely Avendaño eybold - Moderna (Spikevax), 00:00:00 Exter nal Mrna-lnp, Jesse Protein, Pf Influenza Virus 2020-04-05 Completed Yanely johnsonold - Vaccine, Unspecified 00:00:00 Exte rnal Formulation Influenza Virus 2020-04-05 Completed Yanely Ahmadi ybold Vaccine, Unspecified 00:00:00 Formulation Influenza Virus 2020-04-05 Completed Yanely Ahmadi ybold Vaccine, Unspecified 00:00:00 Formulation Influenza Virus 2020-04-05 Completed Yanely Ahmadi ybold Vaccine, Unspecified 00:00:00 Formulation Influenza Virus 2020-04-05 Completed Yanely Ahmadi ybold Vaccine, Unspecified 00:00:00 Formulation Influenza Virus 2020-04-05 Completed Yanely Ahmadi ybold Vaccine, Unspecified 00:00:00 Formulation Influenza Virus 2020-04-05 Completed Yanely Se ybold Vaccine, Unspecified 00:00:00 Formulation Influenza Virus 2020-04-05 Completed Yanely Ahmadi ybold Vaccine, Unspecified 00:00:00 Formulation Influenza Virus 2020-04-05 Completed Yanely Se ybold Vaccine, Unspecified 00:00:00 Formulation Influenza Virus 2020-04-05 Completed Yanely Se ybold Vaccine, Unspecified 00:00:00 Formulation Influenza Virus 2020-04-05 Completed Yanely Se ybold Vaccine, Unspecified 00:00:00 Formulation Influenza Virus 2020-04-05 Completed Yanely Se ybold Vaccine, Unspecified 00:00:00 Formulation Influenza Virus 2020-04-05 Completed Yanely Se ybold Vaccine, Unspecified 00:00:00 Formulation Influenza Virus 2020-04-05 Completed Yanely Se ybold - Vaccine, Unspecified 00:00:00 Exte rnal Formulation Influenza Virus 2020-04-05 Completed Yanely Se ybold - Vaccine, Unspecified 00:00:00 Exte rnal Formulation Influenza Virus 2020-04-05 Completed Yanely Se ybold - Vaccine, Unspecified 00:00:00 Exte rnal Formulation Influenza Virus 2020-04-05 Completed Yanely Se ybold - Vaccine, Unspecified 00:00:00 Exte rnal Formulation Influenza Virus 2020-04-05 Completed Yanely Se ybold - Vaccine, Unspecified 00:00:00 Exte rnal Formulation Influenza Virus 2020-04-05 Completed Yanely Se ybold Vaccine, Unspecified 00:00:00 Formulation Influenza Virus 2020-04-05 Completed Yanely Se ybold - Vaccine, Unspecified 00:00:00 Exte rnal Formulation Influenza Virus 2020-04-05 Completed Yanely Se ybold - Vaccine, Unspecified 00:00:00 Exte rnal Formulation Influenza Virus 2020-04-05 Completed Yanely Se ybold - Vaccine, Unspecified 00:00:00 Exte rnal Formulation Influenza Virus 2020-04-05 Completed Universit y of Vaccine 00:00:00 [facility] Influenza Virus 2020-04-05 Completed Universit y of Vaccine 00:00:00 [facility] Influenza Virus 2020-04-05 Completed Universit y of Vaccine 00:00:00 [facility] Influenza Virus 2020-04-05 Completed Universit y of Vaccine 00:00:00 [facility] Influenza Virus 2020-04-05 Completed Universit y of Vaccine 00:00:00 [facility] Influenza Virus 2020-04-05 Completed Universit y of Vaccine 00:00:00 [facility] Influenza Virus 2020-04-05 Completed Universit y of Vaccine 00:00:00 [facility] Influenza Virus 2020-04-05 Completed Universit y of Vaccine 00:00:00 [facility] Influenza Virus 2020-04-05 Completed Universit y of Vaccine 00:00:00 [facility] Influenza Virus 2020-04-05 Completed Universit y of Vaccine 00:00:00 [facility] Influenza Virus 2019-04-10 Completed Yanely Se ybold - Vaccine, No Preserv, 00:00:00 Exte rnal age 6 months and up Pneumococcal Vaccine, 2019-04-10 Completed Ricardo sey Seybold - Polysaccharide 00:00:00 External Influenza Virus 2019-04-10 Completed Yanely Se ybold Vaccine, No Preserv, 00:00:00 age 6 months and up Pneumococcal Vaccine, 2019-04-10 Completed Ricardo sey Seybold Polysaccharide 00:00:00 Influenza Virus 2019-04-10 Completed Yanely Se ybold Vaccine, No Preserv, 00:00:00 age 6 months and up Pneumococcal Vaccine, 2019-04-10 Completed Ricardo sey Seybold Polysaccharide 00:00:00 Influenza Virus 2019-04-10 Completed Yanely Se ybold Vaccine, No Preserv, 00:00:00 age 6 months and up Pneumococcal Vaccine, 2019-04-10 Completed Ricardo sey Seybold Polysaccharide 00:00:00 Influenza Virus 2019-04-10 Completed Yanely Se ybold Vaccine, No Preserv, 00:00:00 age 6 months and up Pneumococcal Vaccine, 2019-04-10 Completed Ricardo sey Seybold Polysaccharide 00:00:00 Influenza Virus 2019-04-10 Completed Yanely Se ybold Vaccine, No Preserv, 00:00:00 age 6 months and up Pneumococcal Vaccine, 2019-04-10 Completed Ricardo sey Seybold Polysaccharide 00:00:00 Influenza Virus 2019-04-10 Completed Yanely Se ybold Vaccine, No Preserv, 00:00:00 age 6 months and up Pneumococcal Vaccine, 2019-04-10 Completed Ricardo sey Seybold Polysaccharide 00:00:00 Influenza Virus 2019-04-10 Completed Yanely Se ybold Vaccine, No Preserv, 00:00:00 age 6 months and up Pneumococcal Vaccine, 2019-04-10 Completed Ricardo sey Seybold Polysaccharide 00:00:00 Influenza Virus 2019-04-10 Completed Yanely Se ybold Vaccine, No Preserv, 00:00:00 age 6 months and up Pneumococcal Vaccine, 2019-04-10 Completed Ricardo sey Seybold Polysaccharide 00:00:00 Influenza Virus 2019-04-10 Completed Yanely Se ybold Vaccine, No Preserv, 00:00:00 age 6 months and up Pneumococcal Vaccine, 2019-04-10 Completed Ricardo sey Seybold Polysaccharide 00:00:00 Influenza Virus 2019-04-10 Completed Yanely Se ybold Vaccine, No Preserv, 00:00:00 age 6 months and up Pneumococcal Vaccine, 2019-04-10 Completed Ricardo sey Seybold Polysaccharide 00:00:00 Influenza Virus 2019-04-10 Completed Yanely Se ybold Vaccine, No Preserv, 00:00:00 age 6 months and up Pneumococcal Vaccine, 2019-04-10 Completed Ricardo sey Seybold Polysaccharide 00:00:00 Influenza Virus 2019-04-10 Completed Yanely Se ybold Vaccine, No Preserv, 00:00:00 age 6 months and up Influenza Virus 2019-04-10 Completed Yanely Se ybold - Vaccine, No Preserv, 00:00:00 Exte rnal age 6 months and up Pneumococcal Vaccine, 2019-04-10 Completed Ricardo sey Seybold - Polysaccharide 00:00:00 External Pneumococcal Vaccine, 2019-04-10 Completed Ricardo sey Seybold Polysaccharide 00:00:00 Influenza Virus 2019-04-10 Completed Yanely Se ybold - Vaccine, No Preserv, 00:00:00 Exte rnal age 6 months and up Pneumococcal Vaccine, 2019-04-10 Completed Ricardo sey Seybold - Polysaccharide 00:00:00 External Influenza Virus 2019-04-10 Completed Yanely Se ybold - Vaccine, No Preserv, 00:00:00 Exte rnal age 6 months and up Pneumococcal Vaccine, 2019-04-10 Completed Ricardo sey Seybold - Polysaccharide 00:00:00 External Influenza Virus 2019-04-10 Completed Yanely Se ybold - Vaccine, No Preserv, 00:00:00 Exte rnal age 6 months and up Pneumococcal Vaccine, 2019-04-10 Completed Ricardo sey Seybold - Polysaccharide 00:00:00 External Influenza Virus 2019-04-10 Completed Yanely Se ybold - Vaccine, No Preserv, 00:00:00 Exte rnal age 6 months and up Pneumococcal Vaccine, 2019-04-10 Completed Ricardo sey Seybold - Polysaccharide 00:00:00 External Influenza Virus 2019-04-10 Completed Yanely Se ybold Vaccine, No Preserv, 00:00:00 age 6 months and up Influenza Virus 2019-04-10 Completed Yanely Se ybold - Vaccine, No Preserv, 00:00:00 Exte rnal age 6 months and up Pneumococcal Vaccine, 2019-04-10 Completed Ricardo sey Seybold Polysaccharide 00:00:00 Pneumococcal Vaccine, 2019-04-10 Completed Ricardo sey Seybold - Polysaccharide 00:00:00 External Influenza Virus 2019-04-10 Completed Yanely Se ybold - Vaccine, No Preserv, 00:00:00 Exte rnal age 6 months and up Pneumococcal Vaccine, 2019-04-10 Completed Ricardo sey Seybold - Polysaccharide 00:00:00 External Influenza Virus 2019-04-10 Completed Yanely Se ybold - Vaccine, No Preserv, 00:00:00 Exte rnal age 6 months and up Pneumococcal Vaccine, 2019-04-10 Completed Ricardo sey Seybold - Polysaccharide 00:00:00 External Pneumococcal 2019-04-10 Completed University o f Polysaccharide, 00:00:00 [place] [facility] PPSV23 (PNEUMOVAX) Branch Influenza Virus 2019-04-10 Completed Universit y of Vaccine Quad .5 mL IM 00:00:00 [facility] 6+ MO Branch Pneumococcal 2019-04-10 Completed University o f Polysaccharide, 00:00:00 [place] [facility] ical PPSV23 (PNEUMOVAX) Branch Influenza Virus 2019-04-10 Completed Universit y of Vaccine Quad .5 mL IM 00:00:00 [facility] 6+ MO Branch Pneumococcal 2019-04-10 Completed University o f Polysaccharide, 00:00:00 [place] [facility] ical PPSV23 (PNEUMOVAX) Branch Influenza Virus 2019-04-10 Completed Universit y of Vaccine Quad .5 mL IM 00:00:00 [facility] 6+ MO Branch Pneumococcal 2019-04-10 Completed University o f Polysaccharide, 00:00:00 [place] [facility] ical PPSV23 (PNEUMOVAX) Branch Influenza Virus 2019-04-10 Completed Universit y of Vaccine Quad .5 mL IM 00:00:00 [facility] 6+ MO Branch Pneumococcal 2019-04-10 Completed University o f Polysaccharide, 00:00:00 [place] [facility] ical PPSV23 (PNEUMOVAX) Branch Influenza Virus 2019-04-10 Completed Universit y of Vaccine Quad .5 mL IM 00:00:00 [facility] 6+ MO Branch Pneumococcal 2019-04-10 Completed University o f Polysaccharide, 00:00:00 [place] [facility] ical PPSV23 (PNEUMOVAX) Branch Influenza Virus 2019-04-10 Completed Universit y of Vaccine Quad .5 mL IM 00:00:00 [facility] 6+ MO Branch Pneumococcal 2019-04-10 Completed University o f Polysaccharide, 00:00:00 [place] [facility] ical PPSV23 (PNEUMOVAX) Branch Influenza Virus 2019-04-10 Completed Universit y of Vaccine Quad .5 mL IM 00:00:00 [facility] 6+ MO Branch Pneumococcal 2019-04-10 Completed University o f Polysaccharide, 00:00:00 [place] [facility] ical PPSV23 (PNEUMOVAX) Branch Influenza Virus 2019-04-10 Completed Universit y of Vaccine Quad .5 mL IM 00:00:00 [facility] 6+ MO Branch Pneumococcal 2019-04-10 Completed University o f Polysaccharide, 00:00:00 [place] [facility] ical PPSV23 (PNEUMOVAX) Branch Influenza Virus 2019-04-10 Completed Universit y of Vaccine Quad .5 mL IM 00:00:00 [facility] 6+ MO Branch Pneumococcal 2019-04-10 Completed University o f Polysaccharide, 00:00:00 [place] [facility] ical PPSV23 (PNEUMOVAX) Branch Influenza Virus 2019-04-10 Completed Universit y of Vaccine Quad .5 mL IM 00:00:00 [facility] 6+ MO Branch Vital Signs Vital Name Observation Time Observation Value Comments Source Systolic blood 2023-01-23 14:07:00 155 mm[Hg] Yanely Jarrett - pressure External Diastolic blood 2023-01-23 14:07:00 67 mm[Hg] Ansley Jarrett - pressure External Heart rate 2023-01-23 14:07:00 65 /min Yanely macias - External Body temperature 2023-01-23 14:07:00 36.61 Peggy Yara Jarrett - External Respiratory rate 2023-01-23 14:07:00 15 /min Yara Jarrett - External Body height 2023-01-23 14:07:00 188 cm Yanely macias - External Body weight 2023-01-23 14:07:00 165.563 kg Yanely Avendaño eybold - External BMI 2023-01-23 14:07:00 46.86 kg/m2 Yanely S eybold - External Oxygen saturation in 2023-01-23 14:07:00 98 /min Yanely Seybold - Arterial blood by External Pulse oximetry Systolic blood 2022-12-16 13:46:00 147 mm[Hg] Yanely Seybold - pressure External Diastolic blood 2022-12-16 13:46:00 83 mm[Hg] Ricardose y Seybold - pressure External Body temperature 2022-12-16 13:46:00 36.44 Peggy Yara ey Seybold - External Respiratory rate 2022-12-16 13:46:00 14 /min Yara ey Seybold - External Body height 2022-12-16 13:46:00 188 cm Yanely Avendaño eybold - External Body weight 2022-12-16 13:46:00 165.563 kg Yanely Avendaño eybold - External BMI 2022-12-16 13:46:00 46.86 kg/m2 Yanely Avendaño eybold - External Oxygen saturation in 2022-12-16 13:46:00 99 /min Yanely Ahmadiybemmanuel - Arterial blood by External Pulse oximetry Systolic blood 2022-07-21 19:57:00 152 mm[Hg] Yanely Seybold - pressure External Diastolic blood 2022-07-21 19:57:00 80 mm[Hg] Ansley y Seybold - pressure External Heart rate 2022-07-21 19:57:00 77 /min Yanely Avendaño eybold - External Body temperature 2022-07-21 19:57:00 36.78 Peggy Yara ey Seybold - External Respiratory rate 2022-07-21 19:57:00 15 /min Yara ey Seybold - External Body height 2022-07-21 19:57:00 188 cm Yanely Avendaño eybold - External Body weight 2022-07-21 19:57:00 166.017 kg Yanely Avendaño eybold - External BMI 2022-07-21 19:57:00 46.99 kg/m2 Yanely S eybold - External Systolic blood 2022-05-16 16:46:00 194 mm[Hg] Yanely Seybold - pressure External Diastolic blood 2022-05-16 16:46:00 93 mm[Hg] Kelse y Seybold - pressure External Heart rate 2022-05-16 16:46:00 64 /min Yanely S eybold - External Body temperature 2022-05-16 16:46:00 36.67 Peggy Yara ey Seybold - External Respiratory rate 2022-05-16 16:46:00 18 /min Yara ey Seybold - External Body height 2022-05-16 16:46:00 188 cm Yanely S eybold - External Body weight 2022-05-16 16:46:00 165.109 kg Yanely S eybold - External BMI 2022-05-16 16:46:00 46.73 kg/m2 Yanely S eybold - External Systolic blood 2021-08-25 12:58:00 148 mm[Hg] Yanely Seybold pressure Diastolic blood 2021-08-25 12:58:00 78 mm[Hg] Kelse y Seybold pressure Heart rate 2021-08-25 12:58:00 78 /min Yanely S eybold Body temperature 2021-08-25 12:58:00 35.67 Peggy Yara ey Seybold Respiratory rate 2021-08-25 12:58:00 16 /min Yara salcedo Seybold Body height 2021-08-25 12:58:00 188 cm Yanely S eybold Body weight 2021-08-25 12:58:00 160.12 kg Yanely S eybold BMI 2021-08-25 12:58:00 45.32 kg/m2 Yanely S eybold Oxygen saturation in 2021-08-25 12:58:00 100 /min Yanely Ahmadiybemmanuel Arterial blood by Pulse oximetry Systolic blood 2021-08-09 16:54:00 162 mm[Hg] Yanely Seybold pressure Diastolic blood 2021-08-09 16:54:00 90 mm[Hg] Kelse y Seybold pressure Heart rate 2021-08-09 16:54:00 78 /min Yanely S eybold Body temperature 2021-08-09 16:54:00 36.61 Peggy Yara ey Seybold Respiratory rate 2021-08-09 16:54:00 16 /min Yara ey Seybold Body height 2021-08-09 16:54:00 188 cm Yanely S eybold Body weight 2021-08-09 16:54:00 156.491 kg Yanely S eybold BMI 2021-08-09 16:54:00 44.30 kg/m2 Yanely S eybold Oxygen saturation in 2021-08-09 16:54:00 98 /min Yanely Seybold Arterial blood by Pulse oximetry Systolic blood 2021-03-15 19:49:00 180 mm[Hg] Yanely Seybold pressure Diastolic blood 2021-03-15 19:49:00 106 mm[Hg] Kelse y Seybold pressure Heart rate 2021-03-15 19:49:00 76 /min Yanely S eybold Body temperature 2021-03-15 19:49:00 36.44 Peggy Yara ey Seybold Respiratory rate 2021-03-15 19:49:00 16 /min Yara ey Seybold Body height 2021-03-15 19:49:00 188 cm Yanely S eybold Body weight 2021-03-15 19:49:00 156.491 kg Yanely S eybold BMI 2021-03-15 19:49:00 44.30 kg/m2 Yanely S eybold Systolic blood 2021-02-17 19:51:00 163 mm[Hg] Yanely Seybold pressure Diastolic blood 2021-02-17 19:51:00 92 mm[Hg] Kelse y Seybold pressure Heart rate 2021-02-17 19:51:00 72 /min Yanely S eybold Body temperature 2021-02-17 19:51:00 36.78 Peggy Yara ey Seybold Respiratory rate 2021-02-17 19:51:00 16 /min Yara ey Seybold Body height 2021-02-17 19:51:00 185.4 cm Yanely S eybold Body weight 2021-02-17 19:51:00 154.223 kg Yanely S eybold BMI 2021-02-17 19:51:00 44.86 kg/m2 Yanely S eybold Systolic blood 2020-06-19 17:39:00 156 mm[Hg] [facility] Diastolic blood 2020-06-19 17:39:00 92 mm[Hg] Unive rsity of pressure [facility] Heart rate 2020-06-19 17:31:00 86 /min [facility] Respiratory rate 2020-06-19 17:31:00 19 /min Univ ersity of [facility] Body height 2020-06-19 17:31:00 185.4 cm [facility] Body weight 2020-06-19 17:31:00 150.685 kg [facility] BMI 2020-06-19 17:31:00 43.83 kg/m2 [facility] Oxygen saturation in 2020-06-19 17:31:00 95 /min [facility] Arterial blood by [facility] Pulse oximetry Branch Procedures Procedure Date / Time Performing Clinician Source Performed AUTHORIZATION FOR 2022-06-02 06:01:00 Doctor Unassigned, No [facility] [place] RELEASE OF PHI Name Medical Branch REAGENT STRIP/BLOOD 2022-05-16 00:00:00 Outside, Quique Jarrett - GLUCOSE External AUTHORIZATION FOR 2022-05-03 06:01:00 Doctor Unassigned, No [facility] [place] RELEASE OF PHI Name Medical Branch AUTHORIZATION FOR 2022-04-27 06:01:00 Doctor Unassigned, No [facility] [place] RELEASE OF PHI Name Medical Branch REAGENT STRIP/BLOOD 2021-08-09 16:57:00 Krystyna Johnson eybold GLUCOSE REAGENT STRIP/BLOOD 2021-03-15 20:00:00 Krystyna Johnson eybold GLUCOSE MEDICAL 2021-02-22 05:01:00 Doctor Unassigned, No [facility] [place] RELEASE/CLEARANCE FORMS Name Medical Branch NE ELECTROCARDIOGRAM, 2020-06-19 17:36:18 Domenica Arias [facility] [place] COMPLETE Medical Branch Encounters Start End Encounter Admission Attending Care Care Encounter Source Date/Time Date/Time Type Type Clinicians Facility Department ID 2023-05-01 2023-05-01 Outpatient KRYSTYNA JOHNSON [id number] Yanely 09:45:00 09:45:00 Seybol d 2023-04-25 2023-04-25 Outpatient YANELY PRADO [id number] Yanely 09:30:00 09:30:00 DAX Seybol d 2023-03-22 2023-03-22 Outpatient KEN YANELY BRUCE [id number] Yanely 13:30:00 13:30:00 LARA Seybol d 2023-03-03 2023-03-03 Outpatient YANELY OJEDA [id number] Yanely 08:40:00 08:40:00 ROGELIO Seybol d 2023-02-20 2023-02-20 Outpatient YANELY BRUCE [id number] Yanely 00:00:00 00:00:00 Seybol d 2023-02-20 2023-02-20 Outpatient YANELY PRADO [id number] Yanely 00:00:00 00:00:00 DAX Seybol d 2023-02-19 2023-02-19 Outpatient SADIEYANELY [id number] Yanely 00:00:00 00:00:00 CAROLS Seybol d 2023-02-17 2023-02-17 Outpatient YANELY PRADO [id number] Yanely 00:00:00 00:00:00 DAX Seybol d 2023-02-10 2023-02-10 Outpatient YANELY OJEDA [id number] Yanely 08:10:00 08:10:00 ROGELIO Seybol d 2023-02-08 2023-02-08 Outpatient YANELY PRADO [id number] Yanely 00:00:00 00:00:00 DAX Seybol d 2023-02-08 2023-02-08 Outpatient YANELY PRADO [id number] Yanely 00:00:00 00:00:00 DAX Seybol d 2023-02-08 2023-02-08 Outpatient YANELY BRUCE [id number] Yanely 00:00:00 00:00:00 Seybol d 2023-02-07 2023-02-07 Outpatient YANELY PRADO [id number] Yanely 00:00:00 00:00:00 DAX Seybol d 2023-02-02 2023-02-02 Outpatient YANELY HALE [id number] Yanely 09:00:00 09:00:00 PARRISH Seybo ld 2023-02-02 2023-02-02 Outpatient YANELY BRUCE [id number] Yanely 00:00:00 00:00:00 Seybol d 2023-02-01 2023-02-01 Outpatient YANELY PRADO [id number] Yanely 00:00:00 00:00:00 DAX Seybol d 2023-01-31 2023-01-31 Outpatient LAB90 YANELY BRUCE [id number] Yanely 08:40:00 08:40:00 Seybol d 2023-01-30 2023-01-30 Outpatient 1, OPTICAL YANELY BRUCE [id number] Yanely 09:00:00 09:00:00 Seybol d 2023-01-30 2023-01-30 Outpatient YANELY OJEDA [id number] Yanely 08:50:00 08:50:00 ROGELIO Seybol d 2023-01-25 2023-01-25 Outpatient YANELY RODRIGUEZ [id number] Aynely 00:00:00 00:00:00 LETHA Seybol d 2023-01-23 2023-01-23 Outpatient YANELY PRADO [id number] Yanely 09:15:00 09:15:00 DAX Seybol d 2023-01-16 2023-01-16 Outpatient KRYSTYNA JOHNSON [id number] Yanely 10:45:00 10:45:00 Seybol d 2022-12-22 2022-12-22 Outpatient YANELY RODRIGUEZ [id number] Yanely 00:00:00 00:00:00 LETHA Seybol d 2022-12-20 2022-12-20 Outpatient YANELY PRADO [id number] Yanely 00:00:00 00:00:00 DAX Seybol d 2022-12-18 2022-12-18 Outpatient YANELY PRADO [id number] Yanely 00:00:00 00:00:00 DAX Seybol d 2022-12-16 2022-12-16 Outpatient LAB90 YANELY BRUCE [id number] Yanely 09:50:00 09:50:00 Seybol d 2022-12-16 2022-12-16 Outpatient YANELY PRADO [id number] Yanely 09:00:00 09:00:00 DAX Seybol d 2022-12-16 2022-12-16 Outpatient YANELY PRADO [id number] Yanely 00:00:00 00:00:00 DAX Seybol d 2022-12-09 2022-12-09 Outpatient LAB90 YANELY BRUCE [id number] Yanely 09:10:00 09:10:00 Seybol d 2022-12-09 2022-12-09 Outpatient TAHIRA BRUCE [id number] Yanely 00:00:00 00:00:00 MD KATHY Seybol d 2022-11-18 2022-11-18 Outpatient YANELY PRADO [id number] Yanely 15:15:00 15:15:00 DAX Seybol d 2022-11-14 2022-11-14 Outpatient YANELY RODRIGUEZ [id number] Yanely 00:00:00 00:00:00 LETHA Seybol d 2022-11-09 2022-11-09 Outpatient YANELY RODRIGUEZ [id number] Yanely 00:00:00 00:00:00 LETHA Seybol d 2022-11-07 2022-11-07 Outpatient KRYSTYNA JOHNSON [id number] Yanely 09:15:00 09:15:00 Seybol d 2022-10-25 2022-10-25 Outpatient KRYSTYNA JOHNSON [id number] Yanely 00:00:00 00:00:00 Seybol d 2022-10-25 2022-10-25 Outpatient KRYSTYNA JOHNSON [id number] Yanely 00:00:00 00:00:00 Seybol d 2022-10-19 2022-10-19 Outpatient YANELY PRADO [id number] Yanely 00:00:00 00:00:00 DAX Seybol d 2022-10-11 2022-10-11 Outpatient YANELY PRADO [id number] Yanely 00:00:00 00:00:00 DAX Seybol d 2022-10-07 2022-10-07 Outpatient LAB90 YANELY BRUCE [id number] Yanely 08:10:00 08:10:00 Seybol d 2022-10-04 2022-10-04 Outpatient YANELY PRADO [id number] Yanely 00:00:00 00:00:00 DAX Seybol d 2022-09-19 2022-09-19 Outpatient YANELY RODRIGUEZ [id number] Yanely 00:00:00 00:00:00 LETHA Seybol d 2022-09-14 2022-09-14 Outpatient YANELY RODRIGUEZ [id number] Yanely 00:00:00 00:00:00 LETHA Seybol d 2022-08-25 2022-08-25 Outpatient KRYSTYNA JOHNSON [id number] Yanely 00:00:00 00:00:00 Seybol d 2022-08-14 2022-08-14 Outpatient ELIZABETH KRYSTYNA YANELY BRUCE [id number] Yanely 00:00:00 00:00:00 Seybol d 2022-08-04 2022-08-04 Outpatient YANELY RODRIGUEZ [id number] Yanely 00:00:00 00:00:00 LETHA Seybol d 2022-07-25 2022-07-25 Outpatient YANELY CONNELLY [id number] Yanely 15:00:00 15:00:00 ROBYN Seybol d 2022-07-22 2022-07-22 Outpatient YANELY RODRIGUEZ [id number] Yanely 00:00:00 00:00:00 LETHA Seybol d 2022-07-21 2022-07-21 Outpatient YANELY CONNELLY [id number] Yanely 14:00:00 14:00:00 ROBYN Seybol d 2022-07-21 2022-07-21 Outpatient YANELY CONNELLY [id number] Yanely 00:00:00 00:00:00 ROBYN Seybol d 2022-07-11 2022-07-11 Outpatient YANELY BRUCE [id number] Yanely 00:00:00 00:00:00 Seybol d 2022-07-07 2022-07-07 Outpatient YANELY BRUCE [id number] Yanely 00:00:00 00:00:00 Seybol d 2022-06-28 2022-06-28 Outpatient JOHAN YANELY BRUCE [id number] Yanely 00:00:00 00:00:00 DAX Seybol d 2022-06-21 2022-06-21 Outpatient ELIZABETH KRYSTYNA YANELY BRUCE [id number] Yanely 00:00:00 00:00:00 Seybol d 2022-06-16 2022-06-16 Outpatient LAB90 YANELY BRUCE [id number] Yanely 08:55:00 08:55:00 Seybol d 2022-06-15 2022-06-15 Outpatient JOHAN YANELY BRUCE [id number] Yanely 00:00:00 00:00:00 DAX Seybol d 2022-06-03 2022-06-03 Outpatient YANELY OJEDA [id number] Yanely 09:20:00 09:20:00 ROGELIO Seybol d 2022-06-02 2022-06-02 Orders Doctor VALE 1.2.840.114 [id number] Univers 00:00:00 00:00:00 Only Unassigned, ATN 350.1.13.10 ity of [place] [facility] 4.2.7.2.686 Aric as [phone] [address] 2022-05-18 2022-05-18 Outpatient YANELY RODRIGUEZ [id number] Yanely 00:00:00 00:00:00 LETHA Seybol d 2022-05-16 2022-05-16 Outpatient ELIZABETH KRYSTYNA YANELY BRUCE [id number] Yanely 10:45:00 10:45:00 Seybol d 2022-05-11 2022-05-11 Outpatient YANELY RODRIGUEZ [id number] Yanely 00:00:00 00:00:00 LETHA Seybol d 2022-05-11 2022-05-11 Outpatient YANELY BRUCE [id number] Yanely 00:00:00 00:00:00 Seybol d 2022-05-04 2022-05-04 Outpatient YANELY SMITH [id number] Yanely 09:25:00 09:25:00 BEVERLY Seybol d 2022-05-04 2022-05-04 Outpatient YANELY RODRIGUEZ [id number] Yanely 00:00:00 00:00:00 LETHA Seybol d 2022-05-03 2022-05-03 Orders Doctor COLLAZO 1.2.840.114 [id number] Univers 00:00:00 00:00:00 Only Unassigned, ANT 350.1.13.10 ity of [place] [facility] 4.2.7.2.686 Aric as [phone] [facility] 009 Branch 2022-04-27 2022-04-27 Orders Doctor COLLAZO 1.2.840.114 [id number] [facility] 00:00:00 00:00:00 Only Unassigned, ANT 350.1.13.10 ity of [place] [facility] 4.2.7.2.686 Aric as [phone] [facility] 009 Branch 2022-04-22 2022-04-22 Outpatient YANELY OJEDA [id number] Yanely 08:50:00 08:50:00 ROGELIO Seybol d 2022-04-21 2022-04-21 Outpatient YANELY SMITH [id number] Yanely 09:10:00 09:10:00 BEVERLY Seybol d 2022-04-11 2022-04-11 Outpatient YANELY RODRIGUEZ [id number] Yanely 00:00:00 00:00:00 LETHA Seybol d 2022-04-08 2022-04-08 Outpatient LAB90 YANELY BRUCE [id number] aYnely 08:00:00 08:00:00 Seybol d 2022-04-08 2022-04-08 Outpatient YANELY PRADO [id number] Yanely 00:00:00 00:00:00 DAX Seybol d 2022-03-11 2022-03-11 Outpatient YANELY OJEDA [id number] Yanely 09:10:00 09:10:00 ROGELIO Seybol d 2022-03-10 2022-03-10 Outpatient 1, OPTICAL YANELY BRUCE [id number] Yanely 09:05:00 09:05:00 Seybol d 2022-03-10 2022-03-10 Outpatient YANELY BLANC [id number] Yanely 08:45:00 08:45:00 DIRK Seybol d 2022 2022 Outpatient YANELY RODRIGUEZ [id number] Yanely 00:00:00 00:00:00 LETHA Seybol d 2022-03-03 2022-03-03 Outpatient LAB90 YANELY BRUCE [id number] Yanely 08:25:00 08:25:00 Seybol d 2022-03-03 2022-03-03 Outpatient YANELY PRADO [id number] Yanely 00:00:00 00:00:00 DAX Seybol d 2022-02-25 2022-02-25 Outpatient YANELY RODRIGUEZ [id number] Yanely 09:00:00 09:00:00 LETHA Seybol d 2022-02-16 2022-02-16 Outpatient YANELY BRUCE [id number] Yanely 07:30:00 07:30:00 Seybol d 2022-02-10 2022-02-10 Office GENET BLANC 1.2.840.114 [id number] Yanely 08:15:00 08:15:00 Visit [facility] 350.1.13.13 Se ybold 1.2.7.2.686 [id number] 2022-02-09 2022-02-09 Outpatient YANELY BLANC [id number] Yanely 06:30:00 06:30:00 DIRK Seybol d 2022-02-09 2022-02-09 Outpatient YANELY CONN [id number] Yanely 00:00:00 00:00:00 NAOMY Seybol d 2022-02-03 2022-02-03 Outpatient COVID-PFIZE YANELY BRUCE [id number] Yanely 10:00:00 10:00:00 R VACC, Seybol d DU 2022-02-03 2022-02-03 Office Burak Rodirguez 1.2.840.114 [id number] Yanely 09:00:00 09:15:00 Visit Letha Bennett 350.1.13.13 Se ybold Jonogyi 1.2.7.2.686 [id number] 2022-02-03 2022-02-03 Outpatient YANELY NOEL [id number] Yanely 00:00:00 00:00:00 CARLOS Seybol d 2022-01-28 2022-01-28 Office GUILLERMINA Ojeda ERIK 1.2.840.114 [id number] Yanely 08:00:00 08:10:00 Visit [facility] 350.1.13.13 Seybold DIAGNOSTI 1.2.7.2.686 [facility] [id number] 2022-01-28 2022-01-28 Outpatient TOMOGRAPHY, YANELY BRUCE [id number] Yanely 07:50:00 07:50:00 [facility] Seybol d 2022-01-25 2022-01-25 Outpatient 1, OPTICAL YANELY BRUCE [id number] Yanely 08:30:00 08:30:00 Seybol d 2022-01-25 2022-01-25 Office GENET Blanc 1.2.840.114 [id number] Yanely 08:15:00 08:30:00 Visit [facility] 350.1.13.13 S matiasbonereida 1.2.7.2.686 [id number] 2022-01-24 2022-01-24 Outpatient LAB47 YANELY BRUCE [id number] Yanely 11:25:00 11:25:00 Seybol d 2022-01-24 2022-01-24 Office Krystyna Johnson 1.2.840.114 [id number] Yanely 10:45:00 11:00:00 Visit 350.1.13.13 Se ybold 1.2.7.2.686 [id number] 2022-01-19 2022-01-19 Outpatient LAB47 YANELY BRUCE [id number] Yaenly 08:45:00 08:45:00 Seybol d 2022-01-19 2022-01-19 Office RADU NOEL 1.2.840.114 [id number] Yanely 08:15:00 08:15:00 Visit CARLOS 350.1.13.13 Se ybold 1.2.7.2.686 [id number] 2022-01-04 2022-01-04 Office GENET Blanc 1.2.840.114 [id number] Yanely 08:00:00 08:15:00 Visit [facility] 350.1.13.13 S eybold 1.2.7.2.686 [id number] 2022-01-04 2022-01-04 Outpatient YANELY BLANC [id number] Yanely 08:00:00 08:00:00 DIRK Seybol d 2022-01-04 2022-01-04 Outpatient YANELY BLANC [id number] Yanely 00:00:00 00:00:00 DIRK Seybol d 2022-01-03 2022-01-03 Outpatient YANELY BLANC [id number] Yanely 07:30:00 07:30:00 DIRK Seybol d 2022-01-03 2022-01-03 Outpatient YANELY BACA [id number] Yanely 00:00:00 00:00:00 NATALIE padron 2021-12-24 2021-12-24 [facility] 1.2.840.114 [id number] Yanely 10:00:00 10:00:00 350.1.13.13 Se ybold 1.2.7.2.686 [id number] 2021-12-24 2021-12-24 Outpatient YANELY LYLES [id number] Yanely 00:00:00 00:00:00 LAWANDA Seybol d 2021-12-21 2021-12-21 Office GENET Lyles 1.2.840.114 [id number] Yanely 09:00:00 09:30:00 Visit [facility] 350.1.13.13 Seybold 1.2.7.2.686 [id number] 2021-12-20 2021-12-20 Outpatient YANELY RODRIGUEZ [id number] Yanely 00:00:00 00:00:00 LETHA Seybol d 2021-12-17 2021-12-17 Office [facility] 12.840.114 [id number] Yanely 08:00:00 08:10:00 Visit [place] [id number] Seybold DIAGNOSTI 1.2.7.2.686 [facility] [id number] 2021-12-08 2021-12-08 Outpatient YANELY RODRIGUEZ [id number] Yanely 00:00:00 00:00:00 LETHA Seybol d 2021-11-23 2021-11-23 Outpatient YANELY RODRIGUEZ [id number] Yanely 00:00:00 00:00:00 LETHA Seybol d 2021-11-12 2021-11-12 Office [facility] 12.840.114 [id number] Yanely 10:30:00 10:40:00 Visit [place] [address].1.13.13 Seybold DIAGNOSTI 1.2.7.2.686 [facility] [id number] 2021-11-12 2021-11-12 Outpatient YANELY OJEDA [id number] Yanely 08:30:00 08:30:00 ROGELIO Seybol d 2021-11-12 2021-11-12 Outpatient YANELY OJEDA [id number] Yanely 08:10:00 08:10:00 ROGELIO Seybol d 2021-11-10 2021-11-10 Outpatient KRYSTYNA JOHNSON [id number] Yanely 00:00:00 00:00:00 Seybol d 2021-11-10 2021-11-10 Outpatient YANELY RODRIGUEZ [id number] Yanely 00:00:00 00:00:00 LETHA Seybol d 2021-11-05 2021-11-05 Outpatient YANELY LYLES [id number] Yanely 08:00:00 08:00:00 LAWANDA Seybol d 2021-11-04 2021-11-04 Outpatient KRYSTYNA JOHNSON YANELY BRUCE [id number] Yanely 00:00:00 00:00:00 Seybol d 2021-10-29 2021-10-29 Office GUILLERMINA Blanc [id number] [id number] Yanely 08:45:00 09:00:00 Visit [facility] 350.1.13.13 Seybold DIAGNOSTI 1.2.7.2.686 C CENTER [id number] 2021-10-20 2021-10-20 Outpatient YANELY RODRIGUEZ [id number] Yanely 00:00:00 00:00:00 LETHA Seybol william 2021-10-20 2021-10-20 Outpatient YANELY RODRIGUEZ [id number] Yanely 00:00:00 00:00:00 LETHA Seybol william 2021-09-27 2021-09-27 Marques Arias [facility] 1.2.840.114 [id number] [facility] 00:00:00 00:00:00 [facility] 350.1.13.10 [facility] 4.2.7.2.686 Muna avendaño [facility] [id number] [place] [id number] [facility] 2021-09-24 2021-09-24 Outpatient YANELY LAUREN [id number] Yanely 08:25:00 08:25:00 [facility] Seybol d 2021-09-24 2021-09-24 Office RustyGUILLERMINA ERIK 1.2.840.114 [id number] Yanely 08:10:00 08:20:00 Visit Rogelio MEDICAL & 350.1.13.13 Seybold DIAGNOSTI 1.2.7.2.686 C CENTER [id number] 2021-09-23 2021-09-23 Outpatient YANELY LYLES [id number] Yanely 09:30:00 09:30:00 LAWANDA Seybol d 2021-09-15 2021-09-15 Outpatient YANELY RODRIGUEZ [id number] Yanely 00:00:00 00:00:00 LETHA Seybol d 2021-09-09 2021-09-09 Outpatient YANELY RODRIGUEZ YANELY [id number] Yanely 00:00:00 00:00:00 LETHA Seybol d 2021-08-27 2021-08-27 Outpatient HE YANELY BRUCE [id number] Yanely 00:00:00 00:00:00 CHELLE Seybol d 2021-08-25 2021-08-25 Outpatient LAB90 YANELY BRUCE [id number] Yanely 09:05:00 09:05:00 Seybol d 2021-08-25 2021-08-25 Office Burak Rodriguez 1.2.840.114 [id number] Yanely 08:00:00 08:45:00 Visit Letha Bennett 350.1.13.13 stew Moon 1.2.7.2.686 [id number] 2021-08-17 2021-08-17 Outpatient LAB90 YANELY BRUCE [id number] Yanely 10:00:00 10:00:00 Seybol d 2021-08-17 2021-08-17 Outpatient LAB90 YANELY BRUCE [id number] Yanely 09:25:00 09:25:00 Seybol d 2021-08-17 2021-08-17 Refthierry Arias [facility] 1.2.840.114 [id number] Univers 00:00:00 00:00:00 Domenica PEÑALOZA 350.1.13.10 ity of [facility] [place] [id number] Wa dical NAL 059 [facility] 2021-08-16 2021-08-16 Refill Vazquez [facility] 1.2.840.114 [id number] Univers 00:00:00 00:00:00 Domenica ANGLEJN 350.1.13.10 ity of [facility] [place] [id number] Wa dical NAL 059 [facility] 2021-08-13 2021-08-13 Office GUILLERMINA Ojeda 1.2.840.114 [id number] Yanely 09:40:00 09:50:00 Visit Rogelio MEDICAL & 350.1.13.13 Seybold DIAGNOSTI 1.2.7.2.686 C CENTER [id number] 2021-08-09 2021-08-09 Office Krystyna Johnson 1.2.840.114 [id number] Yanely 10:45:00 11:00:00 Visit 350.1.13.13 Se ybold 1.2.7.2.686 [id number] 2021-08-03 2021-08-03 Outpatient YANELY NOEL [id number] Yanely 00:00:00 00:00:00 CARLOS Seybol d 2021-08-03 2021-08-03 Outpatient YANELY RODRIGUEZ [id number] Yanely 00:00:00 00:00:00 LETHA Seybol d 2021-08-03 2021-08-03 Outpatient KRYSTYNA JOHNSON [id number] Yanely 00:00:00 00:00:00 Seybol d 2021-08-03 2021-08-03 Outpatient YANELY RODRIGUEZ [id number] Yanely 00:00:00 00:00:00 LETHA Seybol d 2021-08-03 2021-08-03 Marques Arias ORMELLISSA 1.2.840.114 [id number] Univers 00:00:00 00:00:00 Domenica HENRIETTA 350.1.13.10 [facility] 4.2.7.2.686 Muna JONES [id number] Wa dical [facility]9 [facility] 2021-07-02 2021-07-02 Office GUILLERMINA Ojeda 1.2.840.114 [id number] Yanely 08:30:00 08:40:00 Visit Rogelio G[facility]NER & 350.1.13.13 Seybold DIAGNOSTI 1.2.7.2.686 C CENTER [id number] 2021-06-23 2021-06-23 Outpatient LAB90 YANELY BRUCE [id number] Yanely 08:20:00 08:20:00 Seybol d 2021-06-22 2021-06-22 Outpatient Jose ARIAS [facility] [id number] Univers 11:20:00 11:20:00 QIANGJUN ity o f [facility] 2021-06-14 2021-06-14 Outpatient KRYSTYNA JOHNSON YANELY BRUCE [id number] Yanely 10:15:00 10:15:00 Seybol d 2021-05-21 2021-05-21 Office GUILLERMINA Ojeda 1.2.840.114 [id number] Yanely 08:10:00 08:20:00 [place] [id number] Seybold DIAGNOSTI 1.2.7.2.686 [facility] [id number] 2021-05-12 2021-05-12 Outpatient YANELY NOEL [id number] Yanely 00:00:00 00:00:00 CARLOS Seybol d 2021-05-11 2021-05-11 Outpatient YANELY NOEL [id number] Yanely 09:00:00 09:00:00 CARLOS Seybol d 2021-05-11 2021-05-11 Outpatient YANELY RODRIGUEZ [id number] Yanely 00:00:00 00:00:00 LETHA Seybol d 2021-05-06 2021-05-06 Outpatient TRED45 YANELY BRUCE [id number] Yanely 15:15:00 15:15:00 Seybol d 2021-05-06 2021-05-06 Outpatient SWAB, [facility] YANELY BRUCE [id number] Yanely 15:00:00 15:00:00 Seybol d 2021-05-06 2021-05-06 Outpatient XCJ21-YMW YANELY BRUCE [id number] Yanely 15:00:00 15:00:00 Seybol d 2021-05-05 2021-05-05 Outpatient YANELY NOEL [id number] Yanely 00:00:00 00:00:00 CARLOS Seybol d 2021-05-03 2021-05-03 Outpatient YANELY BRUCE [id number] Yanely 00:00:00 00:00:00 Seybol d 2021-05-03 2021-05-03 Outpatient YANELY GUPTA [id number] Yanely 00:00:00 00:00:00 NARCISO Seybol d 2021-04-23 2021-04-23 Office GUILLERMINA Ojeda [place] 1.2.840.114 [id number] Yanely 08:00:00 08:10:00 Visit [place] [id number] Seybold DIAGNOSTI 1.2.7.2.686 [facility] [id number] 2021-04-19 2021-04-19 Outpatient TAHIRA YANELY BRUCE [id number] Yanely 00:00:00 00:00:00 MD KATHY Seybol d 2021-04-08 2021-04-08 Outpatient YANELY BRUCE [id number] Yanely 14:00:00 14:00:00 Seybol d 2021-04-06 2021-04-06 Outpatient YANELY RODRIGUEZ [id number] Yanely 00:00:00 00:00:00 LETHA Seybol d 2021-04-01 2021-04-01 Outpatient YANELY GUPTA [id number] Yanely 00:00:00 00:00:00 NARCISO Seybol d 2021-03-19 2021-03-19 Office GUILLERMINA Ojeda 1.2.840.114 [id number] Yanely 09:01:05 09:11:05 Visit [place] [address].13 Seybold DIAGNOSTI 1.2.7.2.686 [facility] [id number] 2021-03-18 2021-03-18 Outpatient YANELY LYLES [id number] Yanely 00:00:00 00:00:00 LAWANDA Seybol d 2021-03-17 2021-03-17 Outpatient KRYSTYNA JOHNSON [id number] Yanely 00:00:00 00:00:00 Seybol d 2021-03-16 2021-03-16 Outpatient KRYSTYNA JOHNSON [id number] Yanely 00:00:00 00:00:00 Seybol d 2021-03-15 2021-03-15 Office Krystyna Johnson 1.2.840.114 [id number] Yanely 14:42:50 15:12:50 Visit M 350.1.13.13 Se ybold 1.2.7.2.686 [id number] 2021-02-26 2021-02-26 Outpatient YANELY NOEL [id number] Yanely 00:00:00 00:00:00 CARLOS Seybol d 2021-02-22 2021-02-22 Telephone DIOGO Arias [id number] [facility] 00:00:00 00:00:00 Justinasherri [place] 350.1.13.10 [place] [id number] [place] [facility] 059 [facility] 2021-02-22 2021-02-22 Orders Doctor VALE 1.2.840.114 [id number] Univers 00:00:00 00:00:00 Only Unassigned, ANT 350.1.13.10 ity of [place] [facility] 4.2.7.2.686 Aric as [id number] [facility] 009 [place] 2021-02-19 2021-02-19 Telemedici ANTHONY Lyles 1.2.840.114 [id number] Yanely 07:47:03 08:22:01 ne Lawanda DU 350.1.13.13 [place] 1.2.7.2.686 [id number] 2021-02-18 2021-02-18 Outpatient YANELY RODRIGUEZ [id number] Yanely 00:00:00 00:00:00 LETHA Seybol d 2021-02-18 2021-02-18 Outpatient YANELY NICOLE [id number] [place] 00:00:00 00:00:00 KAYLIE Seybol d 2021-02-18 2021-02-18 Outpatient YANELY NOEL [id number] [place] 00:00:00 00:00:00 CARLOS Seybol d 2021-02-17 2021-02-17 Outpatient LAB47 YANELY BRUCE [id number] Yanely 15:45:00 15:45:00 Seybol d 2021-02-17 2021-02-17 Office RADU Noel 1.2.840.114 [id number] Yanely 14:40:10 14:55:10 Visit Carlos Avendaño 350.1.13.13 Se ybold 1.2.7.2.686 [id number] 2021-02-17 2021-02-17 Outpatient TUCKER HAYNES [id number] [place] 14:30:00 14:30:00 Seybol d 2021-02-17 2021-02-17 Outpatient YANELY NOEL [id number] [place] 00:00:00 00:00:00 CARLOS Seybol d 2021-02-12 2021-02-12 Office GUILLERMINA Ojeda ERIK 1.2.840.114 [id number] Yanely 13:22:59 13:32:59 Visit Rogeliochel [place] 350.1.13.13 Seybold DIAGNOSTI 1.2.7.2.686 [facility] [id number] 2021-02-09 2021-02-09 Outpatient YANELY MARROQUIN [id number] Yanely 13:20:00 13:20:00 DIANA Seybol d 2021-01-12 2021-01-12 Outpatient YANELY RODRIGUEZ [id number] Yanely 00:00:00 00:00:00 LETHA Seybol d 2021-01-05 2021-01-05 Outpatient LAB90 YANELY BRUCE [id number] Yanely 08:10:00 08:10:00 Seybol d 2020-12-28 2020-12-28 Outpatient YANELY RODRIGUEZ [id number] Yanely 13:30:00 13:30:00 LETHA Seybol d 2020-08-07 2020-08-07 Outpatient [facility] [id number] Univers 13:05:00 13:05:00 [facility] 2020-06-25 2020-06-25 Outpatient Jose HALE [facility] [id number] Univers 16:00:00 16:00:00 SENDIL [facility] 2020-06-19 2020-06-19 Office Vazquez [facility] [id number] Univers 11:13:36 12:10:35 Visit Domenica Peñaloza [id number] joeRo [id number] Muna Jones [id number] Wa dical nal 059 [facility] 2020-06-19 2020-06-19 [facility] [id number] Univers 11:20:00 11:20:00 DOMENICA joey o f [facility] 2019-10-23 2019-10-23 [facility] [id number] Univers 10:20:00 10:20:00 DOMENICA joeken o siri [facility] Results Test Description Test Time Test Comments Results Result Comments Source REAGENT STRIP/BLOOD GLUCOSE 2022-05-16 00:00:00 Test Item Value Reference Range Interpretation Comme nts BLOOD SUGAR (test code = 596898) 83 mg/dL 65-99 Yanely Jarrett - ExternalREAGENT STRIP/BLOOD [id number] 16:57:00 Test Item Value Reference Range Interpretation Comments BLOOD SUGAR (test code = 328791) 353 mg/dL 65-99 A Lab Interpretation (test code = Abnormal [id number]) Yanely JarrettREAGENT STRIP/BLOOD [id number] 20:00:00 Test Item Value Reference Range Interpretation Comments BLOOD SUGAR (test code = [id number]) 261 mg/dL 65-99 A Lab Interpretation (test code = Abnormal 99185-0) Yanely Jarrett Notes Date/Time Note Provider Source 2023-02-02 09:14:22-00:00 Formatting of this note is d ifferent from the original. [facility] Chief Complaint Patient presents with Sinus Problem Electronically signed by Elena Payan 02/02/2023 9:14 AM CDT
--- NOTE | 2023-02-20 15:39 | RAD REPORT ---
EXAM DESCRIPTION: Tree Single View02/20/2023 2:52 pm CLINICAL HISTORY: DYSPNEA COMPARISON: CHEST PA AND LAT 2 VIEW dated 08/08/2007 TECHNIQUE: Portable AP view of the chest. FINDINGS: Decreased penetration limits evaluation. Blunting of the right costophrenic angle, could r eflect small effusion, atelectasis, or early airspace disease. The lungs are otherwise clear. No pne umothorax or left effusion. Jifp-ii-pcjlejva cardiomegaly. The mediastinal contours are unremarkable. IMPRESSION: Blunting of the right costophrenic angle as above. Yicf-tg-gqmpsuuk cardiomegaly. Decrea sed penetration limits evaluation.
[2023-02-20 16:37] LABS: Absolute Lymphocytes (CBC) 0.9 K/uL (0.7-4.9); Hematocrit 29.4 % (39.6-49.0); MPV 7.5 fL (7.6-11.3); Platelets 240 thou/uL (152-406); RBC Red Blood Cell Count 3.46 M/uL (4.33-5.43)
[2023-02-20 16:58] LABS: ALT/SGPT 39 U/L (16-61); AST/SGOT 17 U/L (15-37); Albumin 2.6 g/dL (3.4-5.0); Alkaline Phosphatase 79 U/L (45-117); BUN Blood Urea Nitrogen 94 mg/dL (7-18); Bicarbonate 22 mEq/L (21-32); Bilirubin Direct < 0.1 mg/dL (0-0.2); Bilirubin Indirect, Calculated ND mg/dL (0.2-0.8); Bilirubin Total 0.2 mg/dL (0.2-1.0); Glomerular Filtration Rate 11 ml/min (=/>90); Glucose Level 86 mg/dL (74-106); NT PRO-BNP 4535 pg/mL (<125); Sodium Level 139 mEq/L (136-145); Troponin High Sensitivity 34.4 pg/mL (<58.9)
--- NOTE | 2023-02-20 17:20 | EDPHYS ---
Physician Documentation [facility] Name: Jose Gonzales Age: 57 yrs Sex: Male : 1965 Arrival Date: 02/20/2023 Time: 14:19 Bed 20 Private MD: Otf Neves ED Physician Cory Howard HPI: 02/20 14:39 This 57 yrs old Male presents to ER via Wheelchair with complaints of High Blood ms3 Pressure, Fluid retention. 14:39 57-year-old male with past medical history of hypertension, congestive heart failure, ms3 enlarged heart, obstructive sleep apnea, diabetes presents for shortness of breath, leg swelling. Patient states he has not taken his Lasix for the last 2 weeks. Patient called his primary care physician's office and was instructed to come to the emergency department as they did not feel oral Lasix would remove the fluid. Patient denies alleviating or inciting factors. Historical: - Allergies: 14:31 bleach; me1 - PMHx: 14:31 Hypertensive disorder; Congestive heart failure; enlarged heart; peripheral neuropathy; me1 sleep apnea; Diabetes mellitus; chronic kidney disease; - PSHx: 14:31 Appendectomy; knee surgery; cataracts; me1 - Immunization history:: Adult Immunizations up to date. - Social history:: Smoking status: Patient denies any tobacco usage or history of. ROS: 14:39 Constitutional: Negative for fever, and chills. Neck: Negative for injury, pain, and ms3 swelling, Cardiovascular: Negative for chest pain, and palpitations. 14:39 MS/Extremity: Negative for injury and deformity, Skin: Negative for injury, rash, and discoloration, Neuro: Negative for headache, weakness, numbness, tingling. 14:39 Respiratory: Positive for shortness of breath, 14:39 All other systems are negative, Exam: 14:39 Constitutional: This is a well developed, well nourished patient who is awake, alert, ms3 and in no acute distress. Head/Face: Normocephalic, atraumatic. Chest/axilla: Normal chest wall appearance and motion. Nontender with no deformity. Cardiovascular: Regular rate and rhythm with a normal S1 and S2. No gallops, murmurs, or rubs. Normal PMI, no JVD. No pulse deficits. Respiratory: Lungs have equal breath sounds bilaterally, clear to auscultation and percussion. No rales, rhonchi or wheezes noted. No increased work of breathing, no retractions or nasal flaring. Abdomen/GI: Soft, non-tender, with normal bowel sounds. No distension or tympany. No guarding or rebound. No evidence of tenderness throughout. 14:39 Skin: Warm, dry with normal turgor. Normal color with no rashes, no lesions, and no evidence of cellulitis. 14:39 Abdomen/GI: Inspection: obese 14:39 Musculoskeletal/extremity: 4+ pedal edema bilateral lower extremities.. 16:01 ECG was reviewed by the Attending Physician. ms3 Vital Signs: 14:26 BP 199 / 86; Pulse 71; Resp 24; Temp 98.4(TE); Pulse Ox 94% on R/A; Weight 177.81 kg; me1 Height 6 ft. 2 in. ; 16:30 BP 216 / 89; Pulse 70; Resp 20; Pulse Ox 96% on R/A; eh3 16:45 BP 224 / 95; Pulse 70; eh3 17:00 BP 209 / 87; Pulse 69; eh3 17:15 BP 182 / 156; Pulse 72; Resp 18; Pulse Ox 95% on R/A; eh3 17:45 BP 214 / 90; Pulse 70; eh3 18:15 BP 183 / 69; Pulse 71; Resp 17; Pulse Ox 95% on R/A; eh3 18:45 BP 182 / 69; Pulse 71; Resp 19; Pulse Ox 95% on R/A; eh3 19:00 BP 186 / 67; Pulse 75; Resp 19; Pulse Ox 95% on R/A; eh3 14:26 Body Mass Index 50.33 (177.81 kg, 187.96 cm) me1 MDM: 14:38 Patient medically screened. ms3 14:39 Differential diagnosis: Congestive heart failure versus medication noncompliance versus ms3 hypertension versus AZ. 17:20 Data reviewed: vital signs, nurses notes, lab test result(s), EKG, radiologic studies, ms3 and as a result, I will admit patient. Consideration of Admission/Observation Patient was admitted/placed on observation. Management of patient was discussed with the following: Hospitalist: ROXANNE Hendricks on behalf of Dr Maharaj. I considered the following discharge prescriptions or medication management in the emergency department Medications were administered in the Emergency Department. See MAR. Historians other than the Patient: Spouse/Significant Other: . Counseling: I had a detailed discussion with the patient and/or guardian regarding the historical points, exam findings, and any diagnostic results supporting the discharge/admit diagnosis, lab results, radiology results, the need for further work-up and treatment in the hospital. 02/20 14:38 Order name: Basic Metabolic Panel; Complete Time: 17:02 ms3 02/20 14:38 Order name: CBC with Diff; Complete Time: 16:57 ms3 02/20 14:38 Order name: LFT's; Complete Time: 17:02 ms3 02/20 14:38 Order name: Magnesium; Complete Time: 17:02 ms3 02/20 14:38 Order name: NT PRO-BNP; Complete Time: 17:02 ms3 02/20 14:38 Order name: Troponin HS; Complete Time: 17:02 ms3 02/20 14:38 Order name: XRAY Chest (1 view); Complete Time: 15:43 ms3 02/20 14:38 Order name: EKG; Complete Time: 14:39 ms3 02/20 18:32 Order name: CONS Physician Consult EDMS 02/20 14:38 Order name: Cardiac monitoring; Complete Time: 15:13 ms3 02/20 14:38 Order name: EKG - Nurse/Tech; Complete Time: 15:29 ms3 02/20 14:38 Order name: IV Saline Lock; Complete Time: 16:36 ms3 02/20 14:39 Order name: Labs collected and sent; Complete Time: 16:36 ms3 02/20 14:39 Order name: O2 Per Protocol; Complete Time: 15:13 ms3 02/20 14:39 Order name: O2 Sat Monitoring; Complete Time: 15:13 ms3 02/20 17:11 Order name: Misc. Order: Cardene- titrate to MAP of 110-117; Complete Time: 18:20 ms3 EC:01 Rate is 69 beats/min. Rhythm is regular. QRS [place] is Normal. MT interval is normal. QRS ms3 interval is normal. Clinical impression: Normal ECG. Interpreted by me. Reviewed by me. Administered Medications: 18:19 Drug: niCARdipine IV 5 mg/hr IV at calculated rate See Administration Instructions; eh3 (Standard concentration 25 mg / 250 mL NS); Recommended max rate 15 mg/hr; Titrate 2.5 mg/hr as often as every 15 minutes to achieve goal (see titration policy) Route: IV; Rate: calculated rate; Site: right hand; 19:31 Follow up: IV Status: Infusion continued upon admission bp Disposition Summary: 02/20/23 17:20 Hospitalization Ordered Notes: Hospitalization Status: Inpatient Admission ms3 Provider: Dedrick Maharaj ms3 Condition: Stable ms3 Problem: new ms3 Symptoms: are unchanged ms3 Bed/Room Type: Standard ms3 Location: Intensive Care Unit(02/20/23 19:15) cg Room Assignment: -(02/20/23 19:15) Diagnosis - Hypertensive emergency ms3 - Acute on chronic renal failure ms3 Forms: - Medication Reconciliation Form ms3 - SBAR form ms3 - Leadership Thank You Letter ms3 Signatures: Dispatcher [employer] EDJoyce Bradford, RN RN Cory Howard DO DO ms3 Roya Collins RN RN 3 Keyla Arevalo RN RN ma1 Mitchel Nielsen RN bp Corrections: (The following items were deleted from the chart) 14:34 14:31 Allergies: No Known Allergies; me1 me1 14:34 14:31 PMHx: kidney failure; ma1 ma1 19:15 17:20 Telemetry/MedSurg (Inpatient) ms3 cg 19:15 17:20 ms3 cg
--- NOTE | 2023-02-20 17:20 | ER ---
Nurse's Notes [facility] Name: Jose Gonzales Age: 57 yrs Sex: Male : 1965 Arrival Date: 02/20/2023 Time: 14:19 Bed 20 Private MD: Otf Neves Diagnosis: Hypertensive emergency;Acute on chronic renal failure Presentation: 02/20 14:26 Chief complaint: Patient states: that he went without lasix for a couple of weeks by me1 mistake and only recently started it again. c/o high blood pressure and increased swelling in abdomen and BLE. Coronavirus screen: Vaccine status: Patient reports receiving the 2nd dose of the covid vaccine. Ebola Screen: No symptoms or risks identified at this time. Initial Sepsis Screen: Does the patient meet any 2 criteria? No. Patient's initial sepsis screen is negative. Does the patient have a suspected source of infection? No. Patient's initial sepsis screen is negative. Risk Assessment: Do you want to hurt yourself or someone else? Patient reports no desire to harm self or others. Onset of symptoms is unknown. 14:26 Method Of Arrival: Wheelchair me1 14:26 Acuity: ANDREW 3 me1 Historical: - Allergies: 14:31 bleach; me1 - PMHx: 14:31 Hypertensive disorder; Congestive heart failure; enlarged heart; peripheral neuropathy; me1 sleep apnea; Diabetes mellitus; chronic kidney disease; - PSHx: 14:31 Appendectomy; knee surgery; cataracts; me1 - Immunization history:: Adult Immunizations up to date. - Social history:: Smoking status: Patient denies any tobacco usage or history of. Screenin:11 [facility] ED Fall Risk Assessment (Adult) Score/Fall Risk Level 0 - 2 = Low Risk. Abuse eh3 screen: Denies threats or abuse. Denies injuries from another. Nutritional screening: No deficits noted. Tuberculosis screening: No symptoms or risk factors identified. Assessment: 15:11 General: Appears in no apparent distress. uncomfortable, Behavior is calm, cooperative, eh3 appropriate for age. Pain: Denies pain. Neuro: Level of Consciousness is awake, alert, obeys commands, Oriented to person, place, time, situation. Cardiovascular: Capillary refill < 3 seconds Patient's skin is warm and dry. Pulses are all present. Edema is 3+ to left midcalf, left ankle, left foot, right midcalf, right ankle and right foot. Respiratory: Airway is patent Respiratory effort is even, unlabored, Respiratory pattern is regular, symmetrical. GI: Abdomen is round non-distended. Derm: Skin is pink, warm \T\ dry. Musculoskeletal: Circulation, motion, and sensation intact. 16:00 Reassessment: Patient appears in no apparent distress at this time. Patient and/or eh3 family updated on plan of care and expected duration. Pain level reassessed. Patient is alert, oriented x 3, equal unlabored respirations, skin warm/dry/pink. 17:00 Reassessment: Patient appears in no apparent distress at this time. Patient and/or eh3 family updated on plan of care and expected duration. Pain level reassessed. Patient is alert, oriented x 3, equal unlabored respirations, skin warm/dry/pink. 17:11 Reassessment: Cardene held per Dr. Howard, BP is coming down. eh3 18:00 Reassessment: Patient appears in no apparent distress at this time. Patient and/or eh3 family updated on plan of care and expected duration. Pain level reassessed. Patient is alert, oriented x 3, equal unlabored respirations, skin warm/dry/pink. 18:15 Reassessment: BP increasing, Cardene drip started per Dr. Ding. eh3 19:00 Reassessment: Patient appears in no apparent distress at this time. Patient and/or eh3 family updated on plan of care and expected duration. Pain level reassessed. Patient is alert, oriented x 3, equal unlabored respirations, skin warm/dry/pink. Hospitalist at bedside. 19:20 Reassessment: Failed attempt to call report to ICU, Pierron states that pt's nurse leann Sigala is currently in a pt room. Will call back. Vital Signs: 14:26 BP 199 / 86; Pulse 71; Resp 24; Temp 98.4(TE); Pulse Ox 94% on R/A; Weight 177.81 kg; me1 Height 6 ft. 2 in. ; 16:30 BP 216 / 89; Pulse 70; Resp 20; Pulse Ox 96% on R/A; eh3 16:45 BP 224 / 95; Pulse 70; eh3 17:00 BP 209 / 87; Pulse 69; eh3 17:15 BP 182 / 156; Pulse 72; Resp 18; Pulse Ox 95% on R/A; eh3 17:45 BP 214 / 90; Pulse 70; eh3 18:15 BP 183 / 69; Pulse 71; Resp 17; Pulse Ox 95% on R/A; eh3 18:45 BP 182 / 69; Pulse 71; Resp 19; Pulse Ox 95% on R/A; eh3 19:00 BP 186 / 67; Pulse 75; Resp 19; Pulse Ox 95% on R/A; eh3 14:26 Body Mass Index 50.33 (177.81 kg, 187.96 cm) me1 ED Course: 14:22 Patient arrived in ED. mr 14:23 Otf Neves DO is Private Physician. mr 14:24 Cory Howard DO is Attending Physician. ms3 14:31 Triage completed. me1 14:31 Arm band placed on Patient placed in waiting room. me1 14:53 XRAY Chest (1 view) In Process Unspecified. EDMS 15:11 Roya Collins RN is Primary Nurse. eh3 15:11 Patient has correct armband on for positive identification. Bed in low position. Call 3 light in reach. Side rails up X2. Provided Education on: Use of call porter. Client placed on continuous cardiac and pulse oximetry monitoring. NIBP monitoring applied. 17:20 Dedrick Maharaj MD is Hospitalizing Provider. ms3 19:20 Report given to MICHAEL Grullon. eh3 19:21 No provider procedures requiring assistance completed. Patient admitted, IV remains in eh3 place. 19:25 Primary Nurse role handed off by Roya Collins RN bp 19:25 Mitchel Nielsen RN is Primary Nurse. bp Administered Medications: 18:19 Drug: niCARdipine IV 5 mg/hr IV at calculated rate See Administration Instructions; 3 (Standard concentration 25 mg / 250 mL NS); Recommended max rate 15 mg/hr; Titrate 2.5 mg/hr as often as every 15 minutes to achieve goal (see titration policy) Route: IV; Rate: calculated rate; Site: right hand; 19:31 Follow up: IV Status: Infusion continued upon admission bp Medication: 19:22 VIS not applicable for this client. eh3 Outcome: 17:20 Decision to Hospitalize by Provider. ms3 19:30 Admitted to ICU accompanied by nurse, family with patient, via stretcher, room 1, with bp chart, Report called to MAGGI RODRIGUEZ 19:30 Condition: stable 19:30 Instructed on the need for admit, 20:20 Patient left the ED. bp Signatures: Dispatcher [employer] EDMS Kahlil Ailyn, Reg Reg mr NielsenMitchel, RN RN bp Howard, Cory, DO DO ms3 Roya Collins RN RN 3 Keyla Arevalo RN RN me1 Corrections: (The following items were deleted from the chart) 14:34 14:31 Allergies: No Known Allergies; me1 me1 14:34 14:31 PMHx: kidney failure; me1 me1 19:14 19:00 Reassessment: Patient appears in no apparent distress at this time. Patient eh3 and/or family updated on plan of care and expected duration. Pain level reassessed. Patient is alert, oriented x 3, equal unlabored respirations, skin warm/dry/pink. eh3
[2023-02-20] MEDS ORDERED: Nicardipine/NS 25 MG/250 ML KIT IV ONE ×2 (17:27→22:36)
--- NOTE | 2023-02-20 18:16 | P.HP ---
Certification for Inpatient Patient admitted to: Inpatient With expected LOS: <2 Midnights Patient will require the following post-hospital care: None Practitioner: I am a practitioner with admitting privileges, knowledge of patient current condition, hospital course, and medical plan of care. Services: Services provided to patient in accordance with Admission requirements found in Title 42 Section 412.3 of the Code of Federal Regulations <Rachelle Hendricks - Last Filed: 02/21/23 00:26> Patient History Date of Service: 02/21/23 Reason for admission: shortness of breath History of Present Illness: 57-year-old male with a past medical history of hypertension, congestive heart failure, cardiomegaly, obstructive sleep apnea, diabetes, chronic kidney disease presents to the emergency room with shortness of breath, leg swelling that was worse today.. He reports not taking correct dose of Lasix over the last 2 weeks. patient was further referred to the emergency room by his primary care physician.He reports bilateral lower extremity swelling that is gotten worse over the last 2 weeks. He reports right knee pain, edema status post fall from a porch. He denies chest pain, abdominal pain, fever, chills, diaphoresis. Plan to admit to ICU for acute on chronic heart failure, hypertensive urgency, acute on chronic renal failure. Cardiology, nephrology consulted, ER evaluation BP 224 / 95; Pulse 70; 199 / 86; Pulse 71; Resp 24; Temp 98.4(TE); Pulse Ox 94% on R/A; Weight 177.81 kg; started on a Cardene drip. EKG Rate is 69 beats/min. Rhythm is regular. QRS [place] is Normal. ND interval is normal. QRS interval is normal. Clinical impression: Normal ECG, no STEMI. Laboratory evaluation WBCs 13.40, normocytic anemia 9.7, 29.4, sodium potassium normal, BUN 94, creatinine 5.45, BNP 4535, chest x-ray IMPRESSION: Blunting of the right costophrenic angle as above. Orcw-ys-jambgygq cardiomegaly. Decreased penetration limits evaluation - Past Medical/Surgical History -: Hypertensive disorder -: enlarged heart -: peripheral neuropathy -: sleep apnea -: Diabetes mellitus -: chronic kidney disease -: Appendectomy -: knee surgery -: cataracts - Family History Father History Unknown: Yes -: Heart disease, Diabetes, Blood disorders, Kidney disease Mother History Unknown: Yes -: Heart disease - Social History Smoking Status: Never smoker Alcohol use: No CD- Drugs: No Caffeine use: Yes Place of Residence: Home <Rachelle Hendricks - Last Filed: 02/21/23 00:26> Date of Service: 02/21/23 <Flores Hahn - Last Filed: 02/21/23 22:41> Allergies Bleach (Sodium Hypochlorite) Adverse Reaction (Verified 02/20/23 19:08) Itching/Hives/Rash Review of Systems 10-point ROS is otherwise unremarkable <Rachelle Hendricks - Last Filed: 02/21/23 00:26> Physical Examination - Physical Exam General: Alert, In no apparent distress, Oriented x3 HEENT: Atraumatic, Normocephalic, PERRLA Neck: Supple, 2+ carotid pulse no bruit Cardiovascular: Regular rate/rhythm, Edema (+4 BLE Edema) Capillary refill: <2 Seconds Gastrointestinal: Normal bowel sounds, Soft and benign Musculoskeletal: Other (RLE knee mild edema, mild pain with ROM RLE) Integumentary: No rashes, No breakdown Neurological: Normal gait, Normal speech, Normal strength at 5/5 x4 extr Lymphatics: No axilla or inguinal lymphadenopathy - Studies Laboratory Data (last 24 hrs) 02/20/23 02/20/23 16:29 16:29 WBC 13.40 H Hgb 9.7 L Hct 29.4 L Plt Count 240 Sodium 139 Potassium 5.0 BUN 94 H Creatinine 5.45 H Glucose 86 Magnesium 3.0 H Total Bilirubin 0.2 AST 17 ALT 39 Alkaline Phosphatase 79 <Rachelle Hendricks - Last Filed: 02/21/23 00:26> Assessment and Plan - Plan Assessment plan Acute on chronic chronic heart failure hypertensive urgency acute on chronic renal failure. right knee pain peripheral neuropathy Obstructive sleep apnea Diabetes mellitus chronic kidney disease DVT prophylaxis Assessment plan admit to ICU for acute on chronic heart failure hypertensive urgency Cardene drip, cardiology consult Trend troponins, trend BNP BP 224 / 95; Pulse 70; 199 / 86; Pulse 71; Resp 24; Temp 98.4(TE); Pulse Ox 94% on R/A; Weight 177.81 kg; started on a Cardene drip EKG Rate is 69 beats/min. Rhythm is regular. QRS [place] is Normal. ND interval is normal. QRS interval is normal. Clinical impression: Normal ECG, no STEMI. BNP 4535, chest x-ray IMPRESSION: Blunting of the right costophrenic angle as above. Ielp-if-ypxzfeoz cardiomegaly. acute on chronic renal failure Plus for bilateral lower extremity edema nephrology consulted, Lasix 40 every 8 ordered, nitro patch sodium potassium normal, BUN 94, creatinine 5.45, I&O, daily weight right knee pain X-ray right knee, Doppler ultrasound of the right lower extremity rule out DVT Obstructive sleep apnea CPAP at bedtime O2 2 L keep sats greater than 92% Diabetes mellitus type II Accu-Cheks, sliding scale insulin Diet cardiac Full code DVT heparin Discharge Plan: Home Plan to discharge in: 48 Hours - Advance Directives Does patient have a Living Will: No Does patient have a Durable POA for Healthcare: No - Code Status/Comfort Care Code Status Assessed: Yes Code Status: Full Code Physician Review: Patient Assessed, Agree with Above Assessment and Plan Critical Care: Yes Time Spent Managing Pts Care (In Minutes): 70 <Rachelle Hendricks - Last Filed: 02/21/23 00:26> Date of Service: 02/20/23 Patient seen and examined. Patient in the intensive care unit. Agree with current findings. Patient has a history of hypertensive emergency and chronic kidney disease progressing to end-stage renal disease. Patient still with adequate urine output with BUN and creatinine are significantly elevated. Patient has desire not to have hemodialysis, but if he absolutely needs it and he may reconsider. Will speak with Nephrology and Cardiology to make sure everyone is on the same page. Patient should proceed with hemodialysis to give better hemodynamics stability. <Flores Hahn - Last Filed: 02/21/23 22:41>
[2023-02-20] MEDS ORDERED: NA CHLORIDE 0.9% 1,000 ML IV SCH (19:00)
[2023-02-20] MEDS: INSULIN -REGULAR HUMAN 50 UNIT/0.5 ML ML SQ SCH (21:00)
[2023-02-20] MEDS ORDERED: Nicardipine in Saline, Iso-Osm 20 MG/200 ML IV.SOLN. IV SCH ×2 (22:00→23:00)
--- NOTE | 2023-02-20 22:37 | RAD REPORT ---
EXAM DESCRIPTION: RAD - Knee Right 2 View - 02/20/2023 10:05 pm CLINICAL HISTORY: FELL RECENTLY COMPARISON: No comparisons TECHNIQUE: Right knee, 2 views. FINDINGS: No fracture, dislocation or periosteal reaction.No joint effusion seen. Moderate joint spa ce narrowing. Pronounced soft tissue swelling anteriorly. IMPRESSION: Negative right knee.
--- NOTE | 2023-02-20 22:45 | RAD REPORT ---
EXAM DESCRIPTION: US - Extremity Venous Uni Ltd - 02/20/2023 10:28 pm CLINICAL HISTORY: Swelling/pain COMPARISON: None. TECHNIQUE: Real-time sonographic evaluation of the right lower extremity deep venous system was perf ormed. FINDINGS: Normal compressibility, flow augmentation, phasic flow and spontaneous flow is identified in the right lower extremity deep venous system. No intraluminal filling defects seen. Pronounced subcutaneous edema along the lower leg. Ill-defined collection with septation near the int erface of the subcutaneous soft tissues with the muscle compartments. IMPRESSION: No DVT in the right lower extremity. Soft tissue edema and ill-defined complex collections along the lower leg, in the setting of prior tr auma, could relate to a seroma, resolving/organizing hematoma, or possibly a Dimas-Benny lesion.
[2023-02-20] MEDS ORDERED: D50W 25 GM/50 ML SYRINGE IV PRN (23:08)
[2023-02-20] MEDS: FUROSEMIDE 40 MG/4 ML VIAL IV SCH (23:24)
[2023-02-20] MEDS: NITROGLYCERIN 1 GM PKT TD SCH (23:25)
[2023-02-20] MEDS: NICARDIPINE HCL 25 MG in NA CHLORIDE 0.9% 240 ML IV PRN (23:31)
[2023-02-21] MEDS ORDERED: NITROGLYCERIN 1 GM PKT TD SCH
[2023-02-21] MEDS: D10W 125 ML IV PRN ×4 (00:12→19:03)
[2023-02-21] MEDS: HEPARIN 5000 UNIT/ML 1 ML VIAL SQ SCH ×3 (00:17→17:24)
[2023-02-21 00:22] LABS: Potassium 4.6 mEq/L (3.5-5.1); Thyroid Stimulating Hormone 2.29 uIU/mL (0.358-3.740); Uric Acid 6.9 mg/dL (3.5-7.2)
[2023-02-21] MEDS ORDERED: FUROSEMIDE 40 MG/4 ML VIAL IV SCH (01:00)
[2023-02-21] MEDS: FUROSEMIDE 40 MG/4 ML VIAL IV SCH ×3 (01:00→17:00)
[2023-02-21] MEDS: NICARDIPINE HCL 25 MG in NA CHLORIDE 0.9% 240 ML IV PRN ×4 (04:02→22:18)
[2023-02-21 04:04] LABS: Absolute Lymphocytes (CBC) 1.6 K/uL (0.7-4.9); Hematocrit 27.9 % (39.6-49.0); MCV 85.5 fL (80-100); MPV 7.9 fL (7.6-11.3); Platelets 217 thou/uL (152-406); RBC Red Blood Cell Count 3.27 M/uL (4.33-5.43)
[2023-02-21] MEDS ORDERED: Nicardipine/NS 25 MG/250 ML KIT IV ONE (04:08)
[2023-02-21 04:12] LABS: Magnesium 2.8 mg/dL (1.6-2.4); Potassium 4.7 mEq/L (3.5-5.1)
[2023-02-21 05:17] LABS: UR PROTEIN 478.2 mg/dL (<11.9); Urine Protein/Creatinine Ratio 13.28 ratio (<0.15)
[2023-02-21 05:21] LABS: Renal Epithelial <5 /HPF (None Seen); Specific Gravity 1.011 (1.005-1.030); Urine Bacteria <20 /HPF (<20); Urine Bilirubin NEGATIVE (Negative); Urine Blood 1+ (Negative); Urine Clarity Turbid (Clear); Urine Color Colorless (Yellow); Urine Glucose 2+ (Negative); Urine Mucus Slight /HPF (None Seen); Urine Protein 3+ (Negative); Urine RBC <5 /HPF (None Seen); Urine Urobilinogen Normal (Normal)
[2023-02-21] MEDS: NITROGLYCERIN 1 GM PKT TD SCH ×4 (05:21→17:21)
[2023-02-21] MEDS: INSULIN -REGULAR HUMAN 50 UNIT/0.5 ML ML SQ SCH ×4 (07:30→20:06)
[2023-02-21] MEDS: cloNIDine HCL 0.1 MG TAB PO SCH ×3 (11:12→20:04)
[2023-02-21] MEDS: HYDRALAZINE HCL 25 MG TABLET PO SCH ×2 (13:32→20:05)
[2023-02-21] MEDS: GABAPENTIN 100 MG CAP PO SCH ×2 (13:32→20:05)
[2023-02-21] MEDS: SODIUM BICARB 325 MG TAB PO SCH ×2 (13:32→20:04)
--- NOTE | 2023-02-21 15:12 | RAD REPORT ---
EXAM DESCRIPTION: US - Renal Ultrasound-Complete - 02/21/2023 12:22 am CLINICAL HISTORY: Acute renal failure TECHNIQUE: Real-time complete ultrasound of the retroperitoneum with image documentation. COMPARISON: No relevant prior studies available. FINDINGS: Limitations: Technically limited secondary to body habitus. Right kidney: The right kidney measures 12 x 6.1 x 5.4 cm. No stones. No hydronephrosis. Left kidney: The left kidney measures 10.5 x 7.5 x 6.1 cm. Possible 1.6 cm exophytic anechoic/sim ple cyst at the upper pole. No follow-up imaging is necessary. No stones. No hydronephrosis. IMPRESSION: No evidence for renal obstruction. Electronically signed by: Soo Horn MD 02/21/2023 1:17 AM CDT Due to temporary technical issues with the PACS/Fluency reporting system, reports are being signed by the in house radiologists without review as a courtesy to insure prompt reporting. The interpreting radiologist is fully responsible for the content of the report.
[2023-02-21] MEDS ORDERED: LORAZEPAM 0.5 MG TABLET PO ONE (16:14)
[2023-02-21] MEDS: HYDRALAZINE HCL 20 MG/ML VIAL IV PRN (17:24)
--- NOTE | 2023-02-21 18:41 | CON ---
Date of Consultation: 02/21/2023 Reason For Consultation: CHF. History Of Present Illness: This is a 57-year-old male with a past medical history of hypertension, diastolic heart failure, obstructive sleep apnea, morbid obesity, diabetes, chronic kidney disease, p resented with significant shortness of breath, massive lower extremity edema. Sent from his primary care physician directly. He was admitted to the ICU for significant hypertensive urgency and acute h eart failure, required BiPAP and denies having any chest pain at the present time. Past Medical History: As outlined above in the HPI. Medications: Refer to reconciliation sheet for detailed list. Allergies: NO KNOWN DRUG ALLERGIES. Family History: No premature coronary artery disease or cancer. Social History: He does not smoke or drink. Does not use any drugs. Review of Systems: All systems reviewed and they were negative except what mentioned in HPI. Physical Examination: Vital Signs: Reviewed. Head and Neck: Pupils are equal, reactive to light. Intact eye movements. No JVD. No cervical lym phadenopathy. Neck is supple. Thyroid is not enlarged. Lungs: Clear to auscultation bilaterally. No rhonchi, wheezing, or crackles. No accessory muscle u se. Heart: Regular rate and rhythm. No extra sounds. Abdomen: Soft, nontender. Bowel sounds positive. No organomegaly. No masses or hernia. No rigidi ty or rebound. Extremities: Significant edema bilaterally. No clubbing or cyanosis. Intact pulses. Skin: No rash. Neurologic: Alert, awake, oriented x3. No acute focal deficits appreciated. Investigations: BUN 94, creatinine 5.4. Troponins are negative. NT-proBNP is 4500 range. Assessment And Recommendations: 1.Acute on chronic diastolic heart failure exacerbation. Obtain an echo and the patient is on Lasix . If he is making urine on that, to monitor urine output and recommend Nephrology evaluation for a p ossible need for dialysis. Creatinine is very high. 2.Chronic kidney disease, advanced with a very high BUN. Recommend Nephrology evaluation for possib le initiation of dialysis during this hospital stay. 3.Hypertension. Blood pressure is extremely elevated and the patient is on carvedilol, clonidine, n ifedipine, hydralazine, but blood pressure is still very high. I believe this patient is severely fl uid overloaded. He needs dialysis once the fluids are removed, blood pressure will improve. SR/MODL Voice ID: [id number] Report ID: [id number]
[2023-02-21 19:14] LABS: Arterial Blood Carboxyhemoglob 1.3 % (0-1.5); Blood Gas Oxyhemoglobin 93.7 % (94-97); Blood O2 Saturation 96.6 % (92-98.5)
--- NOTE | 2023-02-21 19:56 | CON ---
Date of Consultation: 02/21/2023 Chief Complaint: Shortness of breath. Reason For Consultation: Hypertension emergency, CKD 5. History Of Present Illness: This is a 57-year-old man with past medical History of diabetic chronic kidney disease stage 5, GFR 9, history of obstructive sleep apnea, on CPAP, congestive heart failure. The patient presented to the ER complaining of shortness of breath, found to have hypertension with systolic blood pressure of 199. The patient was started on nicardipine drip. The patient also noti coyr to have significant edema and started on Lasix drip. The patient is known to have CKD 5, offered hemodialysis in the past, but he declined. The patient denied NSAID or recreational drug abuse. Past Medical History: Diabetic CKD 5, CHF, hypertension, obstructive sleep apnea. Past Surgical History: Appendicectomy, knee surgery. Allergies: THE PATIENT IS ALLERGIC TO THE BLEACH. Family History: Father has a history of diabetes and chronic kidney disease. Mother has a history o f heart disease. Social History: Denies tobacco or recreational drug abuse. Review of Systems: General: Has weakness. Denies fever or chills. HEENT: Denies headache or blurred vision. Respiratory: Has shortness of breath and orthopnea. Cardiovascular: Has shortness of breath and orthopnea. Denied chest pain or palpitation. GI: Denied nausea, vomiting, diarrhea, or constipation. : Denied dysuria, hematuria, increase in frequency or urgency. Musculoskeletal: Has knee and leg swelling. Psychiatric: Denies anxiety or depression. Physical Examination: Vital Signs: Pulse rate of 80, blood pressure 218/81. General: Awake and alert, in distress, on BiPAP. Neck: Supple. No elevated JVD. Heart: Regular rate and rhythm. Normal S1, S2. Chest: Decreased air entry bilaterally with rales. Abdomen: Soft, nontender. Extremities: +3 edema. Medications: Include allopurinol, Lipitor, Coreg, clonidine, Lasix, gabapentin, hydralazine, isosorb magalie, insulin. Assessment And Plan: 1.Diabetic CKD 5 . The patient will need renal replacement therapy in view of hypertensio n emergency and edema. The patient again declined hemodialysis. We will continue on diuretic, renal dose medication. Avoid contrast. 2.Hypertension emergency. The patient is off nicardipine drip. Continue on Coreg, clonidine, Lasix , isosorbide, and hydralazine. We will add nifedipine 60 mg b.i.d. 3.Congestive heart failure exacerbation. Continue diuretic, CPAP as needed. 4.Diabetes mellitus. Continue sliding scale insulin. 5.Metabolic acidosis. Continue sodium bicarbonate. 6.History and anemia of chronic disease. Hemoglobin is stable. We will check iron panel. We will consider Epogen once blood pressure is better controlled. Thanks for allowing me to participate in patient care. Total time spent 75 minutes including documentation, reviewing labs, and discussed with the patient, nursing staff. TROY/SHY Voice ID: [id number] Report ID: [id number]
[2023-02-21] MEDS ORDERED: ALBUMIN HUMAN 25% 100 ML IV ONE (20:00)
[2023-02-21] MEDS: carvediloL 25 MG TAB PO SCH (20:05)
[2023-02-21] MEDS: NIFEDIPINE XL 60 MG TABLET PO SCH (20:05)
[2023-02-21] MEDS: ATORVASTATIN 10 MG TAB PO SCH (20:05)
[2023-02-21] MEDS: EPA PO SCH (20:06)
[2023-02-21] MEDS: FISH OIL PO SCH (20:06)
[2023-02-21] MEDS: DHA PO SCH (20:06)
[2023-02-21] MEDS: [UNRECOGNIZED DRUG - OTHER] PO SCH (20:06)
[2023-02-21] MEDS: OMEGA PO SCH (20:06)
[2023-02-21] MEDS ORDERED: HOME MED 1 EA UNK (Pravastatin [Pravachol*] 40 MG/TAB Tab) PO SCH (21:00)
--- NOTE | 2023-02-21 22:47 | P.PN ---
Subjective Date of Service: 02/21/23 Patient is requesting not to undergo hemodialysis at this time. He is okay with undergoing peritoneal dialysis if needed. Will continue with discussion with the family. Continue with blood pressure control and diuresing. Review of Systems 10-point ROS is otherwise unremarkable Physical Examination - Vital Signs Temperature: 98.7 F Blood Pressure: 143/61 Pulse: 66 Respirations: 18 Pulse Ox (%): 95 - Physical Exam General: Alert, In no apparent distress, Oriented x3 HEENT: Atraumatic, PERRLA, EOMI Neck: Supple, JVD not distended Respiratory: Clear to auscultation bilaterally, Normal air movement Cardiovascular: Regular rate/rhythm, Normal S1 S2, No murmurs Gastrointestinal: Normal bowel sounds, Soft and benign, Non-distended, No tenderness, No rebound, No guarding Musculoskeletal: No clubbing, No swelling, No tenderness Neurological: Normal gait, Sensation intact, Cranial nerves 3-12 intact - Studies Medications List Reviewed: Yes Assessment & Plan - Problems (Diagnosis) (1) Hypertensive emergency Current Visit: Yes Status: Acute (2) Acute on chronic kidney failure Current Visit: Yes Status: Acute (3) Flash pulmonary edema Current Visit: Yes Status: Acute - Plan 1. Echocardiogram if it has not been performed in the last 6 months 2. Continue with home BP medications. Will need to add additional medications for strict blood pressure control 3. continue Beta mayito 4. Cardiology consultation appreciated 5. Aggressive diuresis 6. Strict I's and O's 7. Repeat CXR 8. Daily weights 9. Education regarding diet and treatment of congestive heart failure Discharge Plan: Home Plan to discharge in: Greater than 2 days - Advance Directives Does patient have a Living Will: No Does patient have a Durable POA for Healthcare: No - Code Status/Comfort Care Code Status: Full Code Physician Review: Patient Assessed, Agree with Above Assessment and Plan Time Spent Managing PTS Care (In Minutes): 35
[2023-02-22] MEDS: HEPARIN 5000 UNIT/ML 1 ML VIAL SQ SCH ×3 (00:41→17:03)
[2023-02-22] MEDS: HYDRALAZINE HCL 20 MG/ML VIAL IV PRN (00:41)
[2023-02-22] MEDS: FUROSEMIDE 40 MG/4 ML VIAL IV SCH ×3 (00:42→17:04)
[2023-02-22] MEDS: NITROGLYCERIN 1 GM PKT TD SCH ×4 (00:42→17:04)
[2023-02-22] MEDS: D10W 125 ML IV PRN (00:43)
[2023-02-22 05:22] LABS: Absolute Lymphocytes (CBC) 0.7 K/uL (0.7-4.9); Hematocrit 23.5 % (39.6-49.0); Lymphocytes % 7.9 % (15.3-44.8); MCV 85.3 fL (80-100); MPV 7.6 fL (7.6-11.3); Platelets 161 thou/uL (152-406); RBC Red Blood Cell Count 2.76 M/uL (4.33-5.43)
[2023-02-22 05:39] LABS: Magnesium 2.7 mg/dL (1.6-2.4); Potassium 5.5 mEq/L (3.5-5.1); Troponin High Sensitivity 38.1 pg/mL (<58.9)
[2023-02-22 06:23] VITALS: BMI 51.6
[2023-02-22] MEDS: LEVOTHYROXINE SOD 0.05 MG TABLET PO SCH (06:40)
[2023-02-22] MEDS: INSULIN -REGULAR HUMAN 50 UNIT/0.5 ML ML SQ SCH ×4 (07:18→21:05)
[2023-02-22] MEDS: SODIUM BICARB 325 MG TAB PO SCH ×3 (08:39→21:04)
[2023-02-22] MEDS: carvediloL 25 MG TAB PO SCH ×2 (08:39→21:04)
[2023-02-22] MEDS: HYDRALAZINE HCL 25 MG TABLET PO SCH ×3 (08:39→21:04)
[2023-02-22] MEDS: cloNIDine HCL 0.1 MG TAB PO SCH ×3 (08:40→21:04)
[2023-02-22] MEDS: allopurinoL 100 MG TAB PO SCH (08:40)
[2023-02-22] MEDS: GABAPENTIN 100 MG CAP PO SCH ×3 (08:40→21:04)
[2023-02-22] MEDS: NIFEDIPINE XL 60 MG TABLET PO SCH ×2 (08:40→21:03)
[2023-02-22] MEDS: DHA PO SCH ×2 (08:41→21:00)
[2023-02-22] MEDS: EPA PO SCH ×2 (08:41→21:00)
[2023-02-22] MEDS: [UNRECOGNIZED DRUG - OTHER] PO SCH ×2 (08:41→21:00)
[2023-02-22] MEDS: OMEGA PO SCH ×2 (08:41→21:00)
[2023-02-22] MEDS: FISH OIL PO SCH ×2 (08:41→21:00)
[2023-02-22] MEDS: HOME MED 1 EA UNK (Linaclotide [Linzess] 145 MCG Capsule) PO SCH (08:41)
[2023-02-22] MEDS: ISOSORBIDE MONO SR 30 MG TAB PO SCH (10:28)
[2023-02-22] MEDS ORDERED: FUROSEMIDE 40 MG/4 ML VIAL IV ONE (11:36)
[2023-02-22] MEDS ORDERED: EPOETIN ALFA-EPBX 10,000 UNIT/ML VIAL SQ SCH (13:00)
--- NOTE | 2023-02-22 14:02 | PN ---
Date of Progress Note: 02/22/2023 Subjective: The patient was admitted to the hospital with over volume, acute kidney injury. The pat jason apparently missed his Lasix for the last few weeks. The patient still has shortness of breath. The patient had good urine output. Over the night, the patient had almost 3 L, negative of 2 L. Physical Examination: Vital Signs: When I saw the patient; blood pressure 157/57, pulse of 82. Chest: Crackles bilateral. Heart: S1, S2. Systolic murmur. Abdomen: Soft, nontender. Extremity: +3 edema. Neurologic: Alert, oriented with tremor. No focality. Laboratory Data: Hemoglobin 7.8. Sodium 138, potassium 5.5, bicarb 20, BUN 101, creatinine 5.8, GFR of 10, calcium 7.5, magnesium 2.7. PTH 262. Current Medications: The patient on include; 1.Atorvastatin. 2.Carvedilol 25 b.i.d. 3.Clonidine 0.2 t.i.d. 4.Hydralazine 50 t.i.d. 5.Isosorbide. 6.Nicardipine. 7.Gabapentin. 8.Lasix 40 t.i.d. 9.Sodium bicarb drip. 10.Levothyroxine. Assessment And Plan: 1.Acute kidney injury on advanced chronic kidney disease secondary to diabetes nephropathy and cardi orenal. The acute kidney injury secondary to cardiorenal, over volume with hyperkalemia, marginal ac idosis. I had long discussion with the patient regarding the option of treatment and the need to ini tiate renal replacement therapy, the patient on agreement. I am going to go ahead and put the patien t on preference of peritoneal dialysis. I am going to go ahead and start on hemodialysis. After I g ot the agreement from the patient, we will consult Surgery for a tunneled hemodialysis catheter. The n, we will proceed with dialysis, initiate tomorrow. I am going to go ahead and start with aggressiv e diuresis for the patient. We will give extra dose of Lasix today and we will follow up. 2.Hypertension, controlled, optimal. Continue current treatment. We will utilize blood pressure fo r more diuresis. 3.Anemia of chronic kidney disease. I am going to send for iron study. We will start the patient o n EDUARDO. 4.Secondary hyperparathyroidism. Start the patient on calcitriol. We will follow up phosphorus lev el. 5.Acidosis secondary to renal failure. We will continue sodium bicarb. We will discontinue sodium bicarb as the patient started on dialysis. 6.Hyperkalemia, will be corrected with dialysis and diuresis. 7.Diabetes as by primary. 8.Congestive heart failure with exacerbation. We will follow up lab. Time spent examining the patient [id number], reviewing data, lab and radiology, placing order, disc ussing the case with the patient, discussing the case with the pricing/signage team member including nursing staff an d ICU more than 35 minutes. GEOFF/SHY Voice ID: [id number] Report ID: [id number]
--- NOTE | 2023-02-22 14:40 | EKG ---
Test Date: 2023-02-20 Test Time: 15:24:26 Fire Protection Designer: RAGHAVENDRA MEASUREMENT RESULTS: Intervals: Rate: 69 IN: 158 QRSD: 86 QT: 408 QTc: 437 [place]: P: 53 IN: 158 QRS: 78 T: 80 INTERPRETIVE STATEMENTS: Normal sinus rhythm Low voltage QRS Borderline ECG Compared to ECG 08/08/2007 16:52:03 Low QRS voltage now present Sinus tachycardia no longer present Electronically Signed On 02-22-23 14:33:46 CDT by Arie Irwin
[2023-02-22 14:47] LABS: Protime INR 0.95
--- NOTE | 2023-02-22 18:43 | PN ---
Date of Progress Note: 02/22/2023 Subjective: Seen by bedside. Doing clinically well. Does not have any chest pain. He has shortnes s of breath, and he is diuresing very well, but still severely fluid overloaded and his creatinine is increasing. Review of Systems: No chest pain. Positive shortness of breath. No lower extremity edema. No nausea, vomiting, or rory rrhea. All other systems reviewed are negative. Objective: Vital Signs: Reviewed. Head and Neck: Pupils are equal, reactive to light. Intact eye movements. No cervical lymphadenopa thy. NECK is supple. Thyroid is not enlarged. Lungs: Clear to auscultation bilaterally. No rhonchi, wheezing, or crackles. No accessory muscle u se. Heart: Irregular. No extra sounds. Abdomen: Soft, nontender. Bowel sounds positive. No masses or hernia. No rigidity or rebound. Extremities: Significant edema with improvement. Neurologic: Alert, awake, oriented x3. No acute focal deficits appreciated. Investigations: Labs reviewed. Assessment/recommendations: 1.Severe fluid retention with acute congestive heart failure. Please obtain an echo and patient is diuresing very well, but likely needs dialysis. 2.Advanced kidney failure. Needs dialysis and nephrology on board and this will be initiated. 3.Hypertension. Blood pressure is controlled. 4.Hyperkalemia. Patient is recommended Kayexalate and pending the dialysis, which will take place probably tomorrow. 5.Dyslipidemia. Continue statin. SR/MODL Voice ID: [id number] Report ID: [id number]
[2023-02-22] MEDS: ATORVASTATIN 10 MG TAB PO SCH (21:04)
--- NOTE | 2023-02-22 22:52 | CON ---
Date of Consultation: 02/22/2023 Diagnosis: Renal insufficiency. History Of Present Illness: This is the case of a 57-year-old patient with history of hypertension, congestive heart failure, cardiomegaly, obstructive sleep apnea, diabetes, who comes to us with a kid ethan disease. After evaluation by the senior search marketing analyst, it was determined for him to have a hemodialysis, so I was consulted for hemodialysis catheter placement. Past Medical History: As above. Cardiomyopathy, hypertension, sleep apnea, diabetes, morbid obesity . Past Surgical History: Includes appendectomy, knee surgery, cataract surgery. Family History: Includes diabetes, heart disease. Social History: He does not smoke. He does not drink alcohol. Allergies: BLEACH. Review of Systems: No shortness of breath. No chest pain. No fever. See HPI. 10 points otherwise unremarkable. Physical Examination: General: Patient is awake and alert. HEENT: Pupils are equal and reactive. Anicteric. Neck: Supple. Chest: Clear. Heart: S1, S2. Abdomen: Soft and depressible. Extremities: Good capillary refill. Laboratory Data: Blood work shows WBC count of 9.5 with hemoglobin of 7.8 and platelets of 161. INR is 0.95. Chemistry shows potassium 5.5, BUN is 101, and creatinine 5.87. Venous Doppler of the low er extremity shows soft tissue edema. No DVTs. Assessment: This is a 57-year-old patient who was consulted for hemodialysis catheter placement. He has diabetes, hypertension. He was advised in the past the importance of sugar and fluid control. He right now weighed 402 pounds. I was asked to place a hemodialysis catheter. The benefits, altern atives, and risks of placement of catheter was fully explained, which include, but not limited to inf ection, bleeding, damage to adjacent structures, anesthesia complication, inability to put the cathet er, [place], and even . He also understands the chance of hematomas, seromas, DVTs, PEs, endocarditi s. He also understands and his the importance of removing the catheter as soon as not needed. He will be kept n.p.o. after midnight. SAJAN/SHY Voice ID: [id number] Report ID: [id number]
[2023-02-23] MEDS: FUROSEMIDE 40 MG/4 ML VIAL IV SCH ×3 (01:16→16:49)
[2023-02-23] MEDS: NITROGLYCERIN 1 GM PKT TD SCH ×7 (01:16→23:53)
[2023-02-23 04:36] LABS: Absolute Lymphocytes (CBC) 0.5 K/uL (0.7-4.9); Lymphocytes % 6.2 % (15.3-44.8); MCV 85.4 fL (80-100); MPV 7.9 fL (7.6-11.3); Platelets 150 thou/uL (152-406); RBC Red Blood Cell Count 2.69 M/uL (4.33-5.43)
[2023-02-23 05:37] LABS: Albumin 2.3 g/dL (3.4-5.0); Ferritin 281.6 ng/mL (26-388); Phosphorus 7.3 mg/dL (2.5-4.9); Potassium 5.6 mEq/L (3.5-5.1); Thyroid Stimulating Hormone 1.13 uIU/mL (0.358-3.740); Troponin High Sensitivity 24.1 pg/mL (<58.9); Uric Acid 7.1 mg/dL (3.5-7.2)
[2023-02-23 05:49] LABS: Blood Morphology Comment NOT SEEN (NOT SEEN); Platelet Estimate ADEQ
[2023-02-23] MEDS: LEVOTHYROXINE SOD 0.05 MG TABLET PO SCH (05:56)
[2023-02-23] MEDS ORDERED: NA CHLORIDE 0.9% 100 ML ONE (06:51)
[2023-02-23] MEDS ORDERED: NS 0.9% VIAL 0 ML ONE (06:51)
[2023-02-23] MEDS ORDERED: HEPARIN 5000 UNIT/ML 1 ML VIAL ONE (06:52)
[2023-02-23] MEDS ORDERED: NA CHLORIDE 0.9% 500 ML ONE (07:18)
[2023-02-23] MEDS: INSULIN -REGULAR HUMAN 50 UNIT/0.5 ML ML SQ SCH ×4 (07:30→20:42)
[2023-02-23] MEDS ORDERED: propofoL 200 MG/20 ML VIAL IV ONE (07:33)
[2023-02-23] MEDS ORDERED: FENTANYL CITR 100 MCG/2 ML ONE (07:35)
[2023-02-23] MEDS ORDERED: LIDOCAINE 2% MPF 5 ML VIAL ONE (07:35)
[2023-02-23] MEDS ORDERED: MIDAZOLAM HCL 2 MG/2 ML INJ ONE (07:35)
[2023-02-23] MEDS ORDERED: ONDANSETRON 4 MG/2 ML VIAL ONE (07:36)
[2023-02-23] MEDS ORDERED: SUCCINYLCHOLINE 20 MG/ML (10 ML) IV ONE (07:39)
[2023-02-23] MEDS ORDERED: CEFAZOLIN SODIUM 1 GM/VIAL ONE (07:57)
[2023-02-23] MEDS ORDERED: CEFAZOLIN SODIUM 2 GM/VIAL ONE (07:59)
[2023-02-23] MEDS: HEPARIN 5000 UNIT/ML 1 ML VIAL ONE ×4 (08:27→08:33)
--- NOTE | 2023-02-23 08:43 | P.BOP ---
Preoperative diagnosis: Renal failure Postoperative diagnosis: same Primary procedure: 1. Placement of hemosplt Hemodyalisis catheter Secondary procedure: 2. Right neck ultrasound Other procedure(s): 3. interpretation of fluoroscopy Estimated blood loss: <10cc Specimen: none Findings: compressible jugular Anesthesia: General Complications: None Drain(s): Other Implants: 26 HD cuffed cath Transferred to: Recovery Room Condition: Good
[2023-02-23] MEDS: carvediloL 25 MG TAB PO SCH (09:00)
[2023-02-23] MEDS: ISOSORBIDE MONO SR 30 MG TAB PO SCH (09:00)
[2023-02-23] MEDS: cloNIDine HCL 0.1 MG TAB PO SCH ×3 (09:00→17:30)
[2023-02-23] MEDS: [UNRECOGNIZED DRUG - OTHER] PO SCH ×2 (09:00→20:43)
[2023-02-23] MEDS: HYDRALAZINE HCL 25 MG TABLET PO SCH ×3 (09:00→19:31)
[2023-02-23] MEDS: HOME MED 1 EA UNK (Linaclotide [Linzess] 145 MCG Capsule) PO SCH (09:00)
[2023-02-23] MEDS: DHA PO SCH ×2 (09:00→20:43)
[2023-02-23] MEDS: NIFEDIPINE XL 60 MG TABLET PO SCH (09:00)
[2023-02-23] MEDS: FISH OIL PO SCH ×2 (09:00→20:43)
[2023-02-23] MEDS: EPA PO SCH ×2 (09:00→20:43)
[2023-02-23] MEDS: OMEGA PO SCH ×2 (09:00→20:43)
--- NOTE | 2023-02-23 09:10 | RAD REPORT ---
EXAM DESCRIPTION: RAD - Fluoroscopy <1 Hour - 02/23/2023 9:01 am CLINICAL HISTORY: Venous catheter insertion. HD CATH COMPARISON: <Comparisons> FINDINGS: Fluoroscopic imaging is submitted from placement of a venous catheter. Details of the pro cedure not available. Fluoroscopy time: 0.4 minutes
--- NOTE | 2023-02-23 09:30 | RAD REPORT ---
EXAM DESCRIPTION: RAD - Chest Single View - 02/23/2023 9:17 am CLINICAL HISTORY: s/p hd cath insertion Chest pain. COMPARISON: <Comparisons> FINDINGS: Portable technique limits examination quality. Right-sided venous catheter has been placed with tip in the SVC. No pneumothorax is present. For pulm onary edema is present. Significant cardiomegaly. IMPRESSION: No postprocedure pneumothorax.
[2023-02-23] MEDS ORDERED: carvediloL 12.5 MG TAB PO ONE (10:07)
[2023-02-23] MEDS: SODIUM BICARB 325 MG TAB PO SCH ×3 (10:36→20:42)
[2023-02-23] MEDS: GABAPENTIN 100 MG CAP PO SCH ×3 (10:37→20:42)
[2023-02-23] MEDS: allopurinoL 100 MG TAB PO SCH (10:37)
--- NOTE | 2023-02-23 12:59 | ECHO ---
HEIGHT: 6 ft 2 in WEIGHT: 400 lb 0 oz DATE OF STUDY: 02/23/[address]: Arie Irwin 2-DIMENSIONAL: YES M.MODE: YES DOPPLER: YES COLOR FLOW: YES TDS: PORTABLE: YES DEFINITY: BUBBLE STUDY: DIAGNOSIS: CONGESTIVE HEART FAILURE CARDIAC HISTORY: CATHERIZATION: NO SURGERY: NO PROSTHETIC VALVE: NO PACEMAKER: NO MEASUREMENTS (cm) DIASTOLIC (NORMALS) SYSTOLIC (NORMALS) IVSd 1.4 (0.6-1.2) LA Diam 3.1 (1.9-4.0) LVEF 55% LVIDd 4.9 (3.5-5.7) LVIDs 3.5 (2.0-3.5) %FS 28% LVPWd 1.4 (0.6-1.2) Ao Diam 2.8 (2.0-3.7) 2 DIMENSIONAL ASSESSMENT: RIGHT ATRIUM: NORMAL LEFT ATRIUM: NORMAL RIGHT VENTRICLE: NORMAL LEFT VENTRICLE: LEFT VENTRICULAR HYPERTROPHY TRICUSPID VALVE: NORMAL MITRAL VALVE: MILD MITRAL REGURGITATION PULMONIC VALVE: NORMAL AORTIC VALVE: NORMAL PERICARDIAL EFFUSION: NONE AORTIC ROOT: NORMAL LEFT VENTRICULAR WALL MOTION: NORMAL DOPPLER/COLOR FLOW: MILD MITRAL REGURGITATION COMMENTS: 1. NORMAL LEFT VENTRICULAR EJECTION FRACTION 55-60% WITH NORMAL WALL MOTION 2. MILD CONCENTRIC LEFT VENTRICULAR HYPERTROPHY 3. MILD MITRAL REGURGITATION 4. MILD TRICUSPID REGURGITATION 5. SEVERE PULMONARY HYPERTENSION WITH RIGHT VENTRICULAR SYSTOLIC PRESSURE OF GREATER THAN 60 mmHg TECHNOLOGIST: NANCIE ROSA
--- NOTE | 2023-02-23 14:06 | PN ---
Date of Progress Note: 02/23/2023 Subjective: Seen by bedside, he is doing better, however, BUN and creatinine is going way high. His BUN was 122, severe uremia, potassium is 5.6. He had a temporary dialysis catheter placed to initia te dialysis. Review of Systems: No chest pain, shortness of breath orthopnea, or cough. No nausea, vomiting, or diarrhea. All other systems were reviewed and they were negative. Physical Examination: Vital signs: Reviewed. Head and Neck: Pupils are equal, reactive to light. Intact eye movements. No cervical lymphadenopa thy. Neck: Supple. Thyroid is not enlarged. Lungs: Decreased breathing sounds with crackles in bases. No accessory muscle use or muscle retract ion. Heart: Regular rate and rhythm. No extra sounds. Abdomen: Soft, nontender. Bowel sounds positive. No organomegaly. No masses or hernia. No rigidi ty or rebound. Extremities: No clubbing, cyanosis. Intact pulses. Significant edema is present still. Neurologic: Alert, awake, and oriented x3. No acute events appreciated. Investigations: His BUN is 122, creatinine 6.77, and potassium 5.6. Assessment/recommendation: 1.Acute on chronic diastolic heart failure exacerbation. He has normal ejection fraction, but sever e pulmonary hypertension, likely due to significant fluid retention. Await on dialysis. Patient is doing well with diuretics. However, his BUN and creatinine are significantly elevated. 2.Advanced kidney disease with severe uremia and hyperkalemia. Recommend dialysis as soon as possib le. 3.Hyperkalemia. Dialysis will commence today. 4.Hypertension. Blood pressure is controlled. This patient has multiple risk factors. He will need a stress test, which can be arranged for at a later time as an o utpatient. SR/MODL Voice ID: [id number] Report ID: [id number]
[2023-02-23] MEDS ORDERED: NICARDIPINE HCL 25 MG in NA CHLORIDE 0.9% 240 ML IV PRN (14:07)
[2023-02-23] MEDS: carvediloL 12.5 MG TAB PO SCH (16:49)
--- NOTE | 2023-02-23 17:18 | OP ---
Date of Procedure: 02/23/2023 Surgeon: Mirza Blandon MD Preoperative Diagnosis: Renal failure. Postoperative Diagnosis: Renal failure. Procedures: 1.Placement of a cuffed hemodialysis catheter, right jugular vein. 2.Interpretation of fluoroscopy. 3.Right neck ultrasound. Anesthesia: General plus local. Complications: None. Indication: This is the case of a male, who comes to us with congestive heart failure and also renal insufficiency, morbid obesity, diabetes. He did request a hemodialysis catheter placement. Benefit s, alternatives, and risks of placement were fully discussed with the patient, which include, but not limited to infection, bleeding, damage to adjacent structures, anesthesia complication, pneumothorax , hemothorax, PE, endocarditis, [place], and even . He also understands this may not relieve any sym ptoms. He might need more than one surgical intervention. He also understands and his the impo rtance of removing this catheter as soon as it is not in use by the Renal Service, and if he is going to be on a long-term treatment, then his Renal Service will send him to [facility] to get a more perma nent access. He understood, signed a consent. Procedure In Detail: The patient was brought to the operating room, placed in supine position. Anes thesia was done without complication. Right neck and chest were prepped and draped in the usual ster ile fashion. The patient was placed in Trendelenburg position. Once again, we have limitations sinc e he does not like to be flat, so we have to give anesthesia and sedate him to be able to do this pro cedure. Once he is already under anesthesia, then he was able to tolerate the position, so we preppe d the neck and chest in the usual sterile fashion and local anesthesia was applied followed by ultras ound of the right neck area. We noticed the jugular vein to be viable and compressible, so we insert ed an 18-gauge needle in the right internal jugular vein at the first attempt and guidewire was passe d through and got into superior vena cavity using fluoroscopy. A small incision was made in the righ t upper chest and we tunneled the catheter to meet a new incision in the neck region. With the help of fluoroscopy, we proceeded to place multiple dilators to the guidewire until we have the introducer sheath. Then, the guidewire was removed and the catheter was placed through the introducer sheath. At that moment, I proceeded to peel of the introducer sheath and then tested this area and there was excellent backflow and inflow. The 3-0 chromic was used to closed the subcutaneous tissue and the c atheter was secured in place with nylon. Sponge count, instrument counts correct. The catheter was flushed and then the patient was sent to recovery in stable condition and a chest x-ray was ordered s tat. Sponge count, instrument counts correct. SAJAN/SHY Voice ID: [id number] Report ID: [id number]
[2023-02-23 17:42] LABS: Hepatitis B Surface Ab - Quant < 3.10 mIU/mL (<8.0); Hepatitis B surface AG Interp. Nonreactive (Nonreactive)
[2023-02-23] MEDS ORDERED: SODIUM CHLORIDE 0.9% 10ML INJ IV PRN (18:32)
[2023-02-23] MEDS ORDERED: PANTOPRAZOLE 40 MG INJ IVP PRN (18:32)
[2023-02-23] MEDS: CALCIUM CARBONATE CHEW 500MG TAB PO PRN (19:32)
[2023-02-23] MEDS: ATORVASTATIN 10 MG TAB PO SCH (20:42)
--- NOTE | 2023-02-23 22:12 | PN ---
Date of Progress Note: 02/23/2023 Subjective: Patient was admitted with acute kidney injury on advanced chronic kidney disease, over v olume with respiratory distress, [id number] [place]. Patient has been diuresed, responded partially , but still in respiratory distress. I had long discussion with the patient, patient agreed to initi ate dialysis. Patient is status post tunneled hemodialysis catheter today and to start dialysis toda y. Physical Examination: Vital Signs: When I saw the patient, blood pressure 146/80, pulse of 88. Chest: Crackles bilateral. Heart: S1, S2. Systolic murmur. Abdomen: Soft, obese. Extremities: +3 edema. Neurologic: Alert. No focality. No tremor. Laboratory Data: Hemoglobin 7.6. Sodium 137, potassium 5.6, bicarb 18, BUN 122, creatinine 6.7. Ur ic acid 7.1. Calcium 7.7. Phosphorus 7.3. Iron saturation 9.3, ferritin 281. Albumin 2.3. Correc maren calcium is 8.9. Current Medications: The patient is on include: 1.Heparin. 2.Calcium carbonate. 3.Atorvastatin. 4.Carvedilol. 5.Clonidine. 6.Hydralazine. 7.Nicardipine. 8.Nitroglycerin. 9.Gabapentin. 10.Pantoprazole. 11.Levothyroxine. 12.Allopurinol. Assessment And Plan: 1.Acute kidney injury/progression to end-stage renal disease, over volume. We will dialyze the aquiles ent today. Then, we are going to dialyze the patient back to back in the next 3 days. We will darian nue to challenge the patient and we will follow up the patient closely. 2.Hypertension, controlled. Given the fact that we started the patient on dialysis, we going to sta rt putting perimeter on his blood pressure medication to avoid low blood pressure on the dialysis and we will follow up the patient. I am going to continue the Lasix and we will decrease carvedilol to 12.5. Given the diabetes and the congestive heart failure, I am going to start the patient on lisino pril. 3.Secondary hyperparathyroidism. We will start the patient on calcitriol and Renvela. 4.Iron deficiency anemia. We will start the patient on IV iron. 5.Diabetes as by primary. 6.Congestive heart failure with exacerbation. We will continue the patient on Lasix. We will chall enge the patient with the dialysis. Time spent examining the patient [id number], reviewing data, lab and radiology, placing order, disc ussing the case with the pricing/signage team member including nursing staff in ICU and hospitalist more than 35 yakelin hammad. KATHERINE Voice ID: [id number] Report ID: [id number]
[2023-02-24] MEDS: FUROSEMIDE 40 MG/4 ML VIAL IV SCH ×3 (00:33→17:46)
[2023-02-24] MEDS: HYDRALAZINE HCL 20 MG/ML VIAL IV PRN ×3 (02:15→15:18)
[2023-02-24] MEDS: carvediloL 12.5 MG TAB PO SCH (03:41)
[2023-02-24 04:44] LABS: Absolute Lymphocytes (CBC) 0.7 K/uL (0.7-4.9); Hematocrit 24.3 % (39.6-49.0); Lymphocytes % 6.2 % (15.3-44.8); MPV 7.9 fL (7.6-11.3); Platelets 184 thou/uL (152-406); RBC Red Blood Cell Count 2.86 M/uL (4.33-5.43)
[2023-02-24 05:09] LABS: Albumin 2.4 g/dL (3.4-5.0); Phosphorus 6.6 mg/dL (2.5-4.9); Potassium 4.7 mEq/L (3.5-5.1)
[2023-02-24] MEDS: LEVOTHYROXINE SOD 0.05 MG TABLET PO SCH (05:49)
[2023-02-24] MEDS: NITROGLYCERIN 1 GM PKT TD SCH ×3 (05:49→17:47)
[2023-02-24] MEDS: HYDRALAZINE HCL 25 MG TABLET PO SCH ×3 (06:25→20:17)
[2023-02-24] MEDS: cloNIDine HCL 0.1 MG TAB PO SCH ×3 (08:47→20:18)
[2023-02-24] MEDS: SODIUM BICARB 325 MG TAB PO SCH ×3 (08:47→20:18)
[2023-02-24] MEDS: CALCITROL 0.25 MCG CAP PO SCH (08:48)
[2023-02-24] MEDS: ISOSORBIDE MONO SR 30 MG TAB PO SCH (08:48)
[2023-02-24] MEDS: GABAPENTIN 100 MG CAP PO SCH ×3 (08:48→20:18)
[2023-02-24] MEDS: SEVELAMER CARBONATE 800 MG TABLET PO SCH ×3 (08:48→17:47)
[2023-02-24] MEDS: INSULIN -REGULAR HUMAN 50 UNIT/0.5 ML ML SQ SCH ×4 (08:48→20:12)
[2023-02-24] MEDS: allopurinoL 100 MG TAB PO SCH (08:48)
[2023-02-24] MEDS ORDERED: lisinopriL 10 MG TAB PO SCH (09:00)
[2023-02-24] MEDS: DHA PO SCH ×2 (09:00→20:12)
[2023-02-24] MEDS: [UNRECOGNIZED DRUG - OTHER] PO SCH ×2 (09:00→20:12)
[2023-02-24] MEDS: HOME MED 1 EA UNK (Linaclotide [Linzess] 145 MCG Capsule) PO SCH (09:00)
[2023-02-24] MEDS: EPA PO SCH ×2 (09:00→20:12)
[2023-02-24] MEDS: OMEGA PO SCH ×2 (09:00→20:12)
[2023-02-24] MEDS: FISH OIL PO SCH ×2 (09:00→20:12)
[2023-02-24] MEDS: SOD FERRIC GLUC COMPLX/SUCROSE 125 MG in NA CHLORIDE 0.9% 100 ML IV SCH (10:37)
[2023-02-24] MEDS ORDERED: CLONIDINE HCL 0.3 MG TAB PO ONE (11:59)
--- NOTE | 2023-02-24 13:15 | P.PN ---
Subjective Date of Service: 02/24/23 Chief Complaint: shortness of breath Subjective: Other (received HD today.) Physical Examination - Vital Signs Temperature: 97.7 F Blood Pressure: 203/77 Pulse: 81 Respirations: 14 Pulse Ox (%): 93 - Physical Exam General: Other (appears as his stated age) HEENT: Atraumatic, Normocephalic Neck: Supple Cardiovascular: No rubs, No murmurs Gastrointestinal: Soft and benign, No rebound Musculoskeletal: No clubbing Integumentary: No warmth Neurological: Normal speech, Normal tone Urinary: Other (no bladder distention) External genitalia: Deferred Rectal: Deferred - Studies Medications List Reviewed: Yes Assessment And Plan - Plan 1. Acute kidney injury/progression to end-stage renal disease, over volume. Rec eived HD today. HD again tomorrow. 2. Hypertension. continue current medication regimen. HD as above. 3. Secondary hyperparathyroidism. Calcitriol and Renvela. 4. Iron deficiency anemia. IV iron. 5. DM2. Mngt per primary team. 6. Congestive heart failure with exacerbation. We will continue the patient on Lasix. We will challenge pt volume w/ dialysis Physician Review: Patient Assessed, Agree with Above Assessment and Plan
[2023-02-24] MEDS ORDERED: AMLODIPINE 5 MG TAB PO ONE (14:17)
[2023-02-24] MEDS: CALCIUM CARBONATE CHEW 500MG TAB PO PRN (14:38)
--- NOTE | 2023-02-24 14:44 | PN ---
Date of Progress Note: 02/24/2023 Subjective: Seen by bedside, sleeping comfortably. No distress. Still making good urine. Review of Systems: No chest pain, shortness of breath, orthopnea, cough. No nausea, vomiting, diarrhea. All other syst ems reviewed are negative. Physical Examination: Vital Signs: Reviewed. Head and Neck: Pupils are equal, reactive to light. Intact eye movements. The JVD. No cervical ly mphadenopathy. Neck is supple. Thyroid is not enlarged. Lungs: Clear to auscultation bilaterally. No rhonchi, wheezing, or crackles. No accessory muscle u se. Heart: Regular rate and rhythm. No extra sounds. Abdomen: Soft, nontender. Bowel sounds positive. No organomegaly. No masses or hernia. No rigidi ty or rebound. Extremities: No clubbing, cyanosis. Positive edema. Neurologic: Alert, awake, oriented x3. No acute focal deficits appreciated. Investigations: Labs reviewed. Assessment/recommendations: 1.Hypertensive crisis. Blood pressure is extremely elevated. Obtain renal artery Doppler to rule o ut renal artery stenosis and once more fluid was removed through dialysis. Blood pressure should imp rove and recommend to add amlodipine 5 mg daily. 2.Fluid overload with diastolic heart failure exacerbation. Needs fluid management. He is on Lasix , making urine. No significant shortness of breath and dialysis is being conducted. 3.Advanced kidney failure, on dialysis and. SR/MODL Voice ID: [id number] Report ID: [id number]
[2023-02-24] MEDS ORDERED: lisinopriL 10 MG TAB PO STA (14:54)
[2023-02-24] MEDS: METOPROLOL TAR 25 MG TAB PO SCH (17:46)
[2023-02-24] MEDS: ATORVASTATIN 10 MG TAB PO SCH (20:18)
[2023-02-25] MEDS: FUROSEMIDE 40 MG/4 ML VIAL IV SCH ×3 (00:54→17:49)
[2023-02-25] MEDS: NITROGLYCERIN 1 GM PKT TD SCH ×4 (00:54→17:48)
[2023-02-25 05:27] LABS: Albumin 2.2 g/dL (3.4-5.0); Potassium 4.2 mEq/L (3.5-5.1)
[2023-02-25] MEDS: METOPROLOL TAR 25 MG TAB PO SCH ×2 (06:25→17:49)
[2023-02-25] MEDS: LEVOTHYROXINE SOD 0.05 MG TABLET PO SCH (06:26)
[2023-02-25] MEDS: HYDRALAZINE HCL 25 MG TABLET PO SCH ×3 (08:22→20:31)
[2023-02-25] MEDS: INSULIN -REGULAR HUMAN 50 UNIT/0.5 ML ML SQ SCH ×4 (08:22→20:32)
[2023-02-25] MEDS: GABAPENTIN 100 MG CAP PO SCH ×3 (08:22→20:30)
[2023-02-25] MEDS: SODIUM BICARB 325 MG TAB PO SCH (08:22)
[2023-02-25] MEDS: cloNIDine HCL 0.1 MG TAB PO SCH ×3 (08:23→20:31)
[2023-02-25] MEDS: ISOSORBIDE MONO SR 30 MG TAB PO SCH (08:23)
[2023-02-25] MEDS: [UNRECOGNIZED DRUG - OTHER] PO SCH ×2 (08:24→20:32)
[2023-02-25] MEDS: HOME MED 1 EA UNK (Linaclotide [Linzess] 145 MCG Capsule) PO SCH (08:24)
[2023-02-25] MEDS: EPA PO SCH ×2 (08:24→20:32)
[2023-02-25] MEDS: OMEGA PO SCH ×2 (08:24→20:32)
[2023-02-25] MEDS: allopurinoL 100 MG TAB PO SCH (08:24)
[2023-02-25] MEDS: SEVELAMER CARBONATE 800 MG TABLET PO SCH ×3 (08:24→17:49)
[2023-02-25] MEDS: DHA PO SCH ×2 (08:24→20:32)
[2023-02-25] MEDS: FISH OIL PO SCH ×2 (08:24→20:32)
[2023-02-25] MEDS ORDERED: lisinopriL 20 MG TAB PO SCH (09:00)
--- NOTE | 2023-02-25 11:41 | PN ---
Date of Progress Note: 02/25/2023 Subjective: The patient was admitted with acute kidney injury on advanced chronic kidney disease with over volume. The patient was initiated on dialysis, tolerating the dialysis. The patient being dialyzed on a daily basis. We managed to remove 4 L. The patient had lost 16 pounds since admission. The patient was started on lisinopril. Since then, blood pressure started being elevated. Physical Examination: Vital Signs: Blood pressure 186/75, pulse of 74, afebrile. General: The patient had good urine output of 1400. The patient negative of 2100. Chest: Crackles bilateral. Heart: S1, S2. Systolic murmur. Abdomen: Soft, nontender. Extremities: +3 edema. Neurologic: Alert. No focality. Laboratory Data: Hemoglobin 8.2. Sodium 140, potassium 4.2, bicarb 24, BUN 78, creatinine 5.2, calcium 8.3, phosphorus down to 6, albumin 2.2, corrected calcium is 9.5. Current Medications: The patient is on include: 1. Amlodipine 5 mg. 2. IV iron. 3. Atorvastatin. 4. Clonidine 0.2 t.i.d. 5. Hydralazine 50 t.i.d. 6. Lisinopril 20 daily. 7. Metoprolol. 8. Renvela. 9. Sodium bicarb. 10. Lasix 40 t.i.d. 11. Levothyroxine. Assessment And Plan: 1. Acute kidney injury on advanced chronic kidney disease. Still the patient over volume. The patient is scheduled for dialysis today. We will dialyze the patient. We will continue to challenge, hopefully tomorrow we will skip and we will follow up. 2. Hypertension, not controlled. The patient started having poorly controlled blood pressure after adding the lisinopril. I am going to go ahead and hold the lisinopril and increase hydralazine. Continue the parameter for the blood pressure to utilize blood pressure for more diuresis and ultrafiltration. Discontinue sodium bicarb to decrease the sodium load and we will follow up. 3. Acidosis secondary to renal failure, has been resolved. Discontinue bicarb. 4. Anemia of chronic kidney disease. Continue IV iron. We will hold on EDUARDO for the time being. 5. Respiratory failure secondary to congestive heart failure, obstructive sleep apnea. We will try to establish better volume control for the patient with diuresis and/or ultrafiltration. Follow up with Cardiology. Time spent examining the patient [id number], reviewing data, lab and radiology, placing order, discussing the case with the patient, discussing the case with the senior project leader/team lead including the hospitalist and nursing staff more than 35 minutes. KATHERINE Voice ID: [id number] Report ID: [id number] MCKAYLA
[2023-02-25] MEDS: SOD FERRIC GLUC COMPLX/SUCROSE 125 MG in NA CHLORIDE 0.9% 100 ML IV SCH (12:25)
[2023-02-25] MEDS: LABETALOL 20 MG/4ML SYRINGE IV PRN (15:01)
[2023-02-25] MEDS: HYDRALAZINE HCL 20 MG/ML VIAL IV PRN (15:30)
[2023-02-25] MEDS: ATORVASTATIN 10 MG TAB PO SCH (20:30)
[2023-02-25 20:53] LABS: Hepatitis C Virus RNA (PCR)log <1.18 log IU/mL
--- NOTE | 2023-02-25 22:21 | P.PN ---
Date of Service: 02/22/23 Subjective Patient remains short of breath. Patient with anasarca. Hemodialysis access catheter to be placed by Dr. Blnadon, general surgeon. Will start hemodialysis afterwards. Physical Examination - Vital Signs reviewed - Physical Exam General: Alert, In no apparent distress, Oriented x3 Respiratory: Clear to auscultation bilaterally Cardiovascular: Regular rate/rhythm, Normal S1 S2, No murmurs Gastrointestinal: Normal bowel sounds, Soft and benign, Non-distended, No tenderness, Musculoskeletal: No clubbing, No swelling, No tenderness Neurological: No focal deficits Skin: blisters of the left foot and the scrotum; onychomycosis left foot Assessment & Plan - Problems (Diagnosis) (1) Hypertensive emergency Current Visit: Yes Status: Acute (2) Acute on chronic kidney failure Current Visit: Yes Status: Acute (3) Pulmonary edema Current Visit: Yes Status: Acute (4) Morbid Obesity Current Visit: Yes Status: Chronic (5) Diabetes mellitus type 2 Current Visit: Yes Status: Chronic (6) Severe pulmonary hypertension Current Visit: Yes Status: Chronic (7) Anasarca Current Visit: Yes Status: Acute (8) Peripheral neuropathy Current Visit: Yes Status: Chronic (9) Anemia of chronic disease Current Visit: Yes Status: Acute/Chronic (10) Blisters of the skin/testicles/onychomycosis Current Visit: Yes Status: Acute - Plan Continue with plan of care as mentioned below: 1. Echocardiogram as below; severe pulmonary hypertension 2. Continue with adjustment of BP medications. Nephrology adjusted BP meds some more; HD access catheter placement 3. Continue strict BP & BS control 4. Cardiology and Nephrology consultation appreciated 5. Aggressive diuresis & will start dialysis 6. Strict I's and O's 7. Continue with O2 per protocol 8. Daily weights 9. Education regarding diet and treatment of congestive heart failure 10. PT eval once dialysis started; may need SNF placement Discharge Plan: Home Plan to discharge in: Greater than 2 days - Advance Directives Does patient have a Living Will: No Does patient have a Durable POA for Healthcare: No - Code Status/Comfort Care Code Status: Full Code Physician Review: Patient Assessed, Agree with Above Assessment and Plan Time Spent Managing PTS Care (In Minutes): 35 COMMENTS: 1. NORMAL LEFT VENTRICULAR EJECTION FRACTION 55-60% WITH NORMAL WALL MOTION 2. MILD CONCENTRIC LEFT VENTRICULAR HYPERTROPHY 3. MILD MITRAL REGURGITATION 4. MILD TRICUSPID REGURGITATION 5. SEVERE PULMONARY HYPERTENSION WITH RIGHT VENTRICULAR SYSTOLIC PRESSURE OF GREATER THAN 60 mmHg
--- NOTE | 2023-02-25 23:05 | P.PN ---
Date of Service: 02/23/23 Subjective Patient s/p hemodialysis access catheter placement. Patient has done well with hemodialysis afterwards. BP improved. Physical Examination - Vital Signs reviewed - Physical Exam General: Alert, In no apparent distress, Oriented x3 Respiratory: Clear to auscultation bilaterally Cardiovascular: Regular rate/rhythm, Normal S1 S2, No murmurs Gastrointestinal: Normal bowel sounds, Soft and benign, Non-distended, No tenderness, Musculoskeletal: No clubbing, No swelling, No tenderness Neurological: No focal deficits Skin: blisters of the left foot and the scrotum; onychomycosis left foot Assessment & Plan - Problems (Diagnosis) (1) Hypertensive emergency Current Visit: Yes Status: Acute (2) Acute on chronic kidney failure Current Visit: Yes Status: Acute (3) Pulmonary edema Current Visit: Yes Status: Acute (4) Morbid Obesity Current Visit: Yes Status: Chronic (5) Diabetes mellitus type 2 Current Visit: Yes Status: Chronic (6) Severe pulmonary hypertension Current Visit: Yes Status: Chronic (7) Anasarca Current Visit: Yes Status: Acute (8) Peripheral neuropathy Current Visit: Yes Status: Chronic (9) Anemia of chronic disease Current Visit: Yes Status: Acute/Chronic (10) Blisters of the skin/testicles/onychomycosis Current Visit: Yes Status: Acute - Plan Continue with plan of care as mentioned below: 1. Started HD and doing well 2. Continue with adjustment of BP medications. 3. Continue strict BP & BS control 4. Cardiology and Nephrology consultation appreciated 5. Aggressive diuresis & will start dialysis 6. Strict I's and O's 7. Continue with O2 per protocol 8. Daily weights 9. PT eval once dialysis started; may need SNF placement Discharge Plan: Home Plan to discharge in: Greater than 2 days - Advance Directives Does patient have a Living Will: No Does patient have a Durable POA for Healthcare: No - Code Status/Comfort Care Code Status: Full Code Physician Review: Patient Assessed, Agree with Above Assessment and Plan Time Spent Managing PTS Care (In Minutes): 35 COMMENTS: 1. NORMAL LEFT VENTRICULAR EJECTION FRACTION 55-60% WITH NORMAL WALL MOTION 2. MILD CONCENTRIC LEFT VENTRICULAR HYPERTROPHY 3. MILD MITRAL REGURGITATION 4. MILD TRICUSPID REGURGITATION 5. SEVERE PULMONARY HYPERTENSION WITH RIGHT VENTRICULAR SYSTOLIC PRESSURE OF GREATER THAN 60 mmHg
--- NOTE | 2023-02-25 23:07 | P.PN ---
Date of Service: 02/24/23 Subjective Patient doing well; feels better after HD; BP elevated. Anasarca stable; hopefully improvement after HD Physical Examination - Vital Signs reviewed - Physical Exam General: Alert, In no apparent distress, Oriented x3 Respiratory: Clear to auscultation bilaterally Cardiovascular: Regular rate/rhythm, Normal S1 S2, No murmurs Gastrointestinal: Normal bowel sounds, Soft and benign, Non-distended, No tenderness, Musculoskeletal: No clubbing, No swelling, No tenderness Neurological: No focal deficits Skin: blisters of the left foot and the scrotum; onychomycosis left foot Assessment & Plan - Problems (Diagnosis) (1) Hypertensive emergency Current Visit: Yes Status: Acute (2) Acute on chronic kidney failure Current Visit: Yes Status: Acute (3) Pulmonary edema Current Visit: Yes Status: Acute (4) Morbid Obesity Current Visit: Yes Status: Chronic (5) Diabetes mellitus type 2 Current Visit: Yes Status: Chronic (6) Severe pulmonary hypertension Current Visit: Yes Status: Chronic (7) Anasarca Current Visit: Yes Status: Acute (8) Peripheral neuropathy Current Visit: Yes Status: Chronic (9) Anemia of chronic disease Current Visit: Yes Status: Acute/Chronic (10) Blisters of the skin/testicles/onychomycosis Current Visit: Yes Status: Acute - Plan Continue with plan of care as mentioned below: 1. Started HD and doing well; repeat today and tomorrow 2. Adjust BP medications. 3. Continue strict BP & BS control 4. Cardiology and Nephrology consultation appreciated 5. Aggressive diuresis & will start dialysis 6. Strict I's and O's; 2500cc fluid removed with HD + UOP 7. Continue with O2 per protocol 8. PT eval once dialysis started; may need SNF placement Discharge Plan: Home Plan to discharge in: Greater than 2 days - Advance Directives Does patient have a Living Will: No Does patient have a Durable POA for Healthcare: No - Code Status/Comfort Care Code Status: Full Code Physician Review: Patient Assessed, Agree with Above Assessment and Plan Time Spent Managing PTS Care (In Minutes): 35 COMMENTS: 1. NORMAL LEFT VENTRICULAR EJECTION FRACTION 55-60% WITH NORMAL WALL MOTION 2. MILD CONCENTRIC LEFT VENTRICULAR HYPERTROPHY 3. MILD MITRAL REGURGITATION 4. MILD TRICUSPID REGURGITATION 5. SEVERE PULMONARY HYPERTENSION WITH RIGHT VENTRICULAR SYSTOLIC PRESSURE OF GREATER THAN 60 mmHg
--- NOTE | 2023-02-25 23:13 | P.PN ---
Date of Service: 02/25/23 Subjective Patient with no new compliants; doing much better; clinical symptoms have improved. Physical Examination - Vital Signs reviewed - Physical Exam General: Alert, In no apparent distress, Oriented x3 Respiratory: Diminished but clears Cardiovascular: Regular rate/rhythm, Normal S1 S2, No murmurs Gastrointestinal: Soft and benign, Non-distended, No tenderness, Musculoskeletal: No clubbing, No swelling, No tenderness Neurological: No focal deficits Skin: Blisters of the left foot and the scrotum; onychomycosis left foot Assessment & Plan - Problems (Diagnosis) (1) Hypertensive emergency Current Visit: Yes Status: Acute (2) Acute on chronic kidney failure Current Visit: Yes Status: Acute (3) Pulmonary edema Current Visit: Yes Status: Acute (4) Morbid Obesity Current Visit: Yes Status: Chronic (5) Diabetes mellitus type 2 Current Visit: Yes Status: Chronic (6) Severe pulmonary hypertension Current Visit: Yes Status: Chronic (7) Anasarca Current Visit: Yes Status: Acute (8) Peripheral neuropathy Current Visit: Yes Status: Chronic (9) Anemia of chronic disease Current Visit: Yes Status: Acute/Chronic (10) Blisters of the skin/testicles/onychomycosis Current Visit: Yes Status: Acute - Plan Continue with plan of care as mentioned below: 1. Started HD and doing well; 3L of fluid removed 2. Continue with adjusting BP medications. 3. Continue strict BP & BS control 4. Cardiology and Nephrology consultation appreciated; arrange for outpt HD clinic and get her a chair time 5. Continue with diuresing & will start hemodialysis 6. Strict I's and O's; 3000cc fluid removed with HD + UOP 7. Continue with O2 per protocol 8. PT eval in AM; may need SNF placement Discharge Plan: Home Plan to discharge in: Greater than 2 days - Advance Directives Does patient have a Living Will: No Does patient have a Durable POA for Healthcare: No - Code Status/Comfort Care Code Status: Full Code Physician Review: Patient Assessed, Agree with Above Assessment and Plan Time Spent Managing PTS Care (In Minutes): 35 COMMENTS: 1. NORMAL LEFT VENTRICULAR EJECTION FRACTION 55-60% WITH NORMAL WALL MOTION 2. MILD CONCENTRIC LEFT VENTRICULAR HYPERTROPHY 3. MILD MITRAL REGURGITATION 4. MILD TRICUSPID REGURGITATION 5. SEVERE PULMONARY HYPERTENSION WITH RIGHT VENTRICULAR SYSTOLIC PRESSURE OF GREATER THAN 60 mmHg
[2023-02-26] MEDS: NITROGLYCERIN 1 GM PKT TD SCH ×4 (00:30→16:37)
[2023-02-26 05:20] LABS: Absolute Lymphocytes (CBC) 1.1 K/uL (0.7-4.9); Hematocrit 23.5 % (39.6-49.0); Lymphocytes % 16.2 % (15.3-44.8); MCV 84.9 fL (80-100); MPV 7.2 fL (7.6-11.3); Platelets 168 thou/uL (152-406); RBC Red Blood Cell Count 2.77 M/uL (4.33-5.43)
[2023-02-26 05:34] LABS: Albumin 2.2 g/dL (3.4-5.0); Phosphorus 4.9 mg/dL (2.5-4.9); Potassium 3.8 mEq/L (3.5-5.1)
[2023-02-26 05:41] LABS: Magnesium 2.4 mg/dL (1.6-2.4); Potassium 3.8 mEq/L (3.5-5.1)
[2023-02-26] MEDS: LEVOTHYROXINE SOD 0.05 MG TABLET PO SCH (06:34)
[2023-02-26] MEDS: METOPROLOL TAR 50 MG TAB PO SCH ×2 (06:35→16:38)
[2023-02-26] MEDS: [UNRECOGNIZED DRUG - OTHER] PO SCH ×2 (09:00→20:30)
[2023-02-26] MEDS: HOME MED 1 EA UNK (Linaclotide [Linzess] 145 MCG Capsule) PO SCH (09:00)
[2023-02-26] MEDS: DHA PO SCH ×2 (09:00→20:30)
[2023-02-26] MEDS: EPA PO SCH ×2 (09:00→20:30)
[2023-02-26] MEDS: FISH OIL PO SCH ×2 (09:00→20:30)
[2023-02-26] MEDS: OMEGA PO SCH ×2 (09:00→20:30)
[2023-02-26] MEDS: INSULIN -REGULAR HUMAN 50 UNIT/0.5 ML ML SQ SCH ×4 (09:03→20:57)
[2023-02-26] MEDS: FUROSEMIDE 40 MG/4 ML VIAL IV SCH ×2 (09:04→16:40)
[2023-02-26] MEDS: HYDRALAZINE HCL 25 MG TABLET PO SCH ×3 (09:04→20:30)
[2023-02-26] MEDS: ISOSORBIDE MONO SR 30 MG TAB PO SCH (09:04)
[2023-02-26] MEDS: CALCITROL 0.25 MCG CAP PO SCH (09:04)
[2023-02-26] MEDS: SEVELAMER CARBONATE 800 MG TABLET PO SCH ×3 (09:05→16:37)
[2023-02-26] MEDS: GABAPENTIN 100 MG CAP PO SCH ×3 (09:05→20:30)
[2023-02-26] MEDS: allopurinoL 100 MG TAB PO SCH (09:05)
[2023-02-26] MEDS: cloNIDine HCL 0.1 MG TAB PO SCH ×3 (09:05→20:30)
[2023-02-26] MEDS: LABETALOL 20 MG/4ML SYRINGE IV PRN (11:32)
--- NOTE | 2023-02-26 13:40 | PN ---
Date of Progress Note: 02/26/2023 Subjective: The patient was admitted with acute kidney injury secondary to cardiorenal with anasarca and over volume. The patient was initiated on dialysis. The patient has been receiving dialysis on a daily basis. The patient still had good urine output. Physical Examination: Vital Signs: Blood pressure 154/69, pulse of 63, afebrile. The patient had good urine output of 1800, ultrafiltration of 3 L. The patient negative of 3800. Weight elizalde, the patient down to 381, the patient lost 20 pounds since admission. Chest: Decreased entry bilateral base. Heart: S1, S2. Regular. Systolic murmur. Abdomen: Morbidly obese. Could not appreciate any organomegaly. Extremities: +3 edema. Laboratory Data: Hemoglobin 7.8. Sodium 139, potassium 3.8, bicarb 27, BUN 61, creatinine 4.5, calcium 8.5, magnesium 2.4, phosphorus 4.8. BNP down to 13,000. Albumin 2.2. Current Medications: The patient on include; 1. Heparin. 2. IV iron. 3. Atorvastatin. 4. Clonidine 0.3 t.i.d. 5. Hydralazine 100 t.i.d. 6. Isosorbide 60. 7. Metoprolol 50 b.i.d. 8. Nitroglycerin p.r.n. 9. Gabapentin. 10. Lasix 40 b.i.d. 11. Renvela. 12. Pantoprazole. 13. Levothyroxine. 14. Allopurinol. Assessment And Plan: 1. Chronic kidney disease, stage 4 to 5, progression to end-stage renal disease, dialysis dependent currently. I am going to continue the patient on dialysis. We will switch the patient currently to Monday, Monday, Monday. We will arrange for the dialysis. Tomorrow, we will challenge the patient. We will follow up. 2. Hypertension, controlled, not optimal. We will continue current regimen to allow more blood pressure for ultrafiltration with dialysis. 3. Anemia of chronic kidney disease/iron deficiency anemia. Continue IV iron. Continue EDUARDO. 4. Secondary hyperparathyroidism. Calcium and phosphorus on the goal. Continue Renvela. 5. Congestive heart failure with exacerbation, anasarca secondary to renal failure. We will continue challenging the patient. Follow up with Cardiology. Time spent examining the patient [id number], reviewing data, lab and radiology, placing order, discussing the case with the patient, discussing the case with the teamcenter solution architect including the hospitalist and nursing staff more than 35 minutes. KATHERINE Voice ID: [id number] Report ID: [id number] MCKAYLA
--- NOTE | 2023-02-26 17:11 | P.PN ---
Date of Service: 02/26/23 Subjective Patient was given out of bed into a chair. Patient is doing well. We will work with physical therapy and ambulate patient. Physical Examination - Vital Signs reviewed - Physical Exam General: Alert, In no apparent distress, Oriented x3 Respiratory: Diminished but clears Cardiovascular: Regular rate/rhythm, Normal S1 S2, No murmurs Gastrointestinal: Soft and benign, Non-distended, No tenderness, Musculoskeletal: No clubbing, No swelling, No tenderness Neurological: No focal deficits Skin: Blisters of the left foot and the scrotum; onychomycosis left foot Assessment & Plan - Problems (Diagnosis) (1) Hypertensive emergency Current Visit: Yes Status: Acute (2) Acute on chronic kidney failure Current Visit: Yes Status: Acute (3) Pulmonary edema Current Visit: Yes Status: Acute (4) Morbid Obesity Current Visit: Yes Status: Chronic (5) Diabetes mellitus type 2 Current Visit: Yes Status: Chronic (6) Severe pulmonary hypertension Current Visit: Yes Status: Chronic (7) Anasarca Current Visit: Yes Status: Acute (8) Peripheral neuropathy Current Visit: Yes Status: Chronic (9) Anemia of chronic disease Current Visit: Yes Status: Acute/Chronic (10) Blisters of the skin/testicles/onychomycosis Current Visit: Yes Status: Acute - Plan Continue with plan of care as mentioned below: 1. Hemodialysis today. We will wait till tomorrow. Sitting up chair time. Anticipate discharge over the next few days. 2. Continue with adjusting BP medications. 3. Continue strict BP & BS control 4. Cardiology and Nephrology consultation appreciated; arrange for outpt HD clinic and get her a chair time 5. Continue with diuresing & will start hemodialysis 6. Strict I's and O's; 3000cc fluid removed with HD + UOP 7. Continue with O2 per protocol 8. PT eval; DC home soon once chair time completed and ambulating better Discharge Plan: Home Plan to discharge in: Greater than 2 days - Advance Directives Does patient have a Living Will: No Does patient have a Durable POA for Healthcare: No - Code Status/Comfort Care Code Status: Full Code Physician Review: Patient Assessed, Agree with Above Assessment and Plan Time Spent Managing PTS Care (In Minutes): 35 COMMENTS: 1. NORMAL LEFT VENTRICULAR EJECTION FRACTION 55-60% WITH NORMAL WALL MOTION 2. MILD CONCENTRIC LEFT VENTRICULAR HYPERTROPHY 3. MILD MITRAL REGURGITATION 4. MILD TRICUSPID REGURGITATION 5. SEVERE PULMONARY HYPERTENSION WITH RIGHT VENTRICULAR SYSTOLIC PRESSURE OF GREATER THAN 60 mmHg
[2023-02-26] MEDS: ATORVASTATIN 10 MG TAB PO SCH (20:30)
[2023-02-27] MEDS: NITROGLYCERIN 1 GM PKT TD SCH ×4 (05:25→17:16)
[2023-02-27] MEDS: LEVOTHYROXINE SOD 0.05 MG TABLET PO SCH (05:26)
[2023-02-27] MEDS: METOPROLOL TAR 50 MG TAB PO SCH ×2 (05:26→17:16)
[2023-02-27] MEDS: INSULIN -REGULAR HUMAN 50 UNIT/0.5 ML ML SQ SCH ×4 (07:30→20:44)
[2023-02-27 07:39] LABS: Albumin 2.3 g/dL (3.4-5.0); Bilirubin Total 0.3 mg/dL (0.2-1.0); Magnesium 2.4 mg/dL (1.6-2.4); Phosphorus 4.8 mg/dL (2.5-4.9); Potassium 4.3 mEq/L (3.5-5.1); Protein, Total 6.8 g/dL (6.4-8.2)
--- NOTE | 2023-02-27 07:50 | RAD REPORT ---
EXAM DESCRIPTION: RAD - Chest Single View - 02/27/2023 5:28 am CLINICAL HISTORY: pneumonia Chest pain. COMPARISON: Chest Single View dated 02/23/2023; Chest Single View dated 02/20/2023; CHEST PA AND LAT 2 VIEW dated 08/08/2007 FINDINGS: Portable technique limits examination quality. Mild pulmonary edema is seen. The heart is moderately enlarged. No displaced fractures.Right venous c atheter has tip in the SVC. IMPRESSION: Mild CHF.
[2023-02-27] MEDS: EPA PO SCH ×2 (09:00→21:00)
[2023-02-27] MEDS: DHA PO SCH ×2 (09:00→21:00)
[2023-02-27] MEDS: OMEGA PO SCH ×2 (09:00→21:00)
[2023-02-27] MEDS: cloNIDine HCL 0.1 MG TAB PO SCH ×3 (09:00→20:43)
[2023-02-27] MEDS: HYDRALAZINE HCL 25 MG TABLET PO SCH ×3 (09:00→20:44)
[2023-02-27] MEDS: [UNRECOGNIZED DRUG - OTHER] PO SCH ×2 (09:00→21:00)
[2023-02-27] MEDS: HOME MED 1 EA UNK (Linaclotide [Linzess] 145 MCG Capsule) PO SCH (09:00)
[2023-02-27] MEDS: FISH OIL PO SCH ×2 (09:00→21:00)
[2023-02-27] MEDS: SEVELAMER CARBONATE 800 MG TABLET PO SCH ×4 (09:01→17:16)
[2023-02-27] MEDS: ISOSORBIDE MONO SR 30 MG TAB PO SCH (09:01)
[2023-02-27] MEDS: GABAPENTIN 100 MG CAP PO SCH ×3 (09:01→20:44)
[2023-02-27] MEDS: allopurinoL 100 MG TAB PO SCH (09:01)
[2023-02-27] MEDS: FUROSEMIDE 40 MG/4 ML VIAL IV SCH ×2 (09:01→17:16)
--- NOTE | 2023-02-27 09:19 | PN ---
Date of Progress Note: 02/27/2023 Subjective: Seen by bedside. Doing clinically better. Review of Systems: No chest pain. No shortness of breath. No nausea, vomiting, diarrhea. All other systems reviewed a nd they were negative. Physical Examination: Vital Signs: Reviewed. Head and Neck: Pupils are equal, reactive to light. Intact eye movements. No JVD. No cervical lym phadenopathy. Neck is supple. Thyroid is not enlarged. Lungs: Clear to auscultation bilaterally. No rhonchi, wheezing, or crackles. No accessory muscle u se. Heart: Irregular. No extra sounds. Abdomen: Soft, nontender. Bowel sounds positive. No organomegaly. No masses or hernia. No rigidi ty or rebound. Extremities: No clubbing or cyanosis. Massive edema still present Neurologic: Alert, awake, oriented x3. No acute focal deficits appreciated. Lymph Nodes: No cervical or axillary lymphadenopathy. Investigations: Labs were reviewed. Assessment And Recommendations: 1.Atrial fibrillation, now it is controlled. Continue metoprolol. Recommend also adding Eliquis 2. 5 mg twice a day. 2.Diastolic heart failure with exacerbation, massive fluid retention in part due to advanced kidney failure. He is on dialysis at the present time. Continue fluid management per Nephrology. 3.End-stage renal disease, on hemodialysis. 4.Hypertension. Blood pressure is improved. With further fluid removal, blood pressure will improv e further and we will monitor. SR/MODL Voice ID: [id number] Report ID: [id number]
[2023-02-27 09:25] LABS: Absolute Lymphocytes (CBC) 1.7 K/uL (0.7-4.9); Hematocrit 28.2 % (39.6-49.0); Lymphocytes % 13.8 % (15.3-44.8); MCV 84.9 fL (80-100); MPV 7.9 fL (7.6-11.3); Platelets 166 thou/uL (152-406); RBC Red Blood Cell Count 3.32 M/uL (4.33-5.43)
[2023-02-27 10:06] LABS: Blood Morphology Comment NOT SEEN (NOT SEEN); Platelet Estimate ADEQ; White Blood Cell Scan OK (OK)
[2023-02-27 10:18] LABS: Vitamin D 1,25-Dihydroxy Total <8 pg/mL (18-72); Vitamin D,1,25-OH2, D2 <8 pg/mL
[2023-02-27] MEDS: SOD FERRIC GLUC COMPLX/SUCROSE 125 MG in NA CHLORIDE 0.9% 100 ML IV SCH (11:15)
--- NOTE | 2023-02-27 12:22 | PN ---
Date of Progress Note: 02/25/2023 Subjective: Seen by bedside. He was started on dialysis. Review of Systems: No chest pain, shortness of breath, orthopnea, cough. No nausea, vomiting, diarrhea. All other syst ems reviewed and they were negative. Physical Examination: Vital Signs: Showed a temperature of 98.3, pulse 75, breathing at 12, blood pressure 164/61, saturat ing 94% on room air. General: Pleasant middle-aged male, morbidly obese, no apparent distress. Head and Neck: Pupils are equal, reactive to light. Intact eye movements. No JVD. No cervical lym phadenopathy. Neck is supple. Thyroid is not enlarged. Lungs: Clear to auscultation bilaterally. No rhonchi, wheezing, or crackles. No accessory muscle u se. Heart: Irregular. No extra sounds. Abdomen: Soft, nontender. Bowel sounds positive. No organomegaly. No masses or hernia. No rigidi ty or rebound. Extremities: Massive edema bilaterally. No clubbing or cyanosis. Intact pulses. Skin: No rash. Neurologic: Alert, awake, oriented x3. No acute focal deficits appreciated. Investigations: BUN 61, creatinine 4.53. Assessment And Recommendations: 1.Acute on chronic diastolic heart failure exacerbation. Continue IV diuretics and we will start on dialysis. Needs aggressive fluid removal. 2.Hypertension, malignant, but he is severely fluid overloaded. Blood pressure is improving. With further dialysis, it should improve further. 3.Atrial fibrillation, appears to be controlled at the present time. Continue current management. Recommended to introduce Eliquis 2.5 mg twice a day. SR/MODL Voice ID: [id number] Report ID: [id number]
--- NOTE | 2023-02-27 15:15 | P.PN ---
Subjective Date of Service: 02/27/23 Chief Complaint: shortness of breath No acute events overnight. He reports that his symptoms are much improved since admission. He reports that he is still quiet swollen. Plan is for an additional 2-3 days of hemodialysis. He hopes to transition to peritoneal dialysis as an outpatient. Review of Systems 10-point ROS is otherwise unremarkable Cardiovascular: Orthopnea, Edema Physical Examination - Vital Signs Temperature: 97.3 F Blood Pressure: 191/86 Pulse: 68 Respirations: 16 Pulse Ox (%): 94 - Physical Exam General: Alert, In no apparent distress, Oriented x3 HEENT: Atraumatic, Mucous membr. moist/pink, Sclerae nonicteric Neck: JVD not distended Respiratory: Diminished, Crackles/rales (bibasilar) Cardiovascular: Regular rate/rhythm, Normal S1 S2, No gallops, No rubs, No murmurs, Edema (2+ BLE) Gastrointestinal: Normal bowel sounds, Soft and benign, Non-distended, No tenderness, No rebound, No guarding Musculoskeletal: No clubbing Integumentary: No rashes Neurological: Normal speech, Normal affect - Studies Medications List Reviewed: Yes Assessment And Plan - Plan # Hypertensive Emergency with Acute on Chronic Decompensated Diastolic Congestive Heart Failure Exacerbation # Severe Pulmonary Hypertension Blood pressure on presentation was as high as 224/95. - Consult Cardiology - recommendations appreciated - Transthoracic Echocardiogram = "1. normal left ventricular ejection fraction 55-60% with normal wall motion 2. mild concentric left ventricular hypertrophy 3. mild mitral regurgitation 4. mild tricuspid regurgitation 5. severe pulmonary hypertension with right ventricular systolic pressure of greater than 60 mmHg" - Volume removal via iHD - Continue furosemide, hydralazine, clonidine, Imdur, metoprolol - Daily weights - Strict I/O - Cardiac diet, 1.5 L fluid restriction, 2 g Na restriction # KDIGO Stage III Acute Kidney Injury on Chronic Kidney Disease Stage V - Nephrology consulted and spoke with Dr. 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 Soft tissue edema and ill-defined complex collections along the lower leg, in the setting of prior trauma, could relate to a seroma, resolving/organizing hematoma, or possibly a Dimas-Benny lesion" - Serial exams Jose Soria M.D.
[2023-02-27 17:37] LABS: Hepatitis B Core Ab, Total Nonreactive (Nonreactive); Hepatitis B Core IgM Nonreactive (Nonreactive)
[2023-02-27] MEDS: ATORVASTATIN 10 MG TAB PO SCH (20:43)
--- NOTE | 2023-02-28 00:37 | PN ---
Date of Progress Note: 02/27/2023 Chief Complaint: Acute kidney injury secondary to cardiorenal syndrome with anasarca, fluid overload . Subjective: The patient was initiated on dialysis. He has been dialyzed with daily treatment. Review of Systems: Denies chest pain or palpitation. Physical Examination: Lungs: Decreased breath sound bilaterally. Heart: S1, S2. Abdomen: Soft, benign. Extremities: Edema present. Impression And Plan: 1.Chronic kidney disease stage 4 advancing to stage 5, progression to end-stage renal disease. Dial ysis will be done to control fluid overload and provide metabolic clearance. The patient received di alysis today. Monitor daily labs to evaluate electrolytes. 2.Hypertension. Blood pressure is controlled. Continue current medication. Obtain ultrafiltration with dialysis to prevent fluid overload. 3.Anemia due to chronic kidney disease. Continue IV iron and continue EDUARDO. 4.Secondary hyperparathyroidism. Calcium and phosphorus control at the target range. Continue Renv pan. 5.Congestive heart failure exacerbation. Continue low-sodium diet. Diuretic as needed. The patien t has nonoliguric urine output, although he remains dialysis-dependent and he will continue dialysis for end-stage renal disease. EB/MODL Voice ID: [id number] Report ID: [id number]
[2023-02-28 02:40] LABS: Absolute Lymphocytes (CBC) 1.4 K/uL (0.7-4.9); Hematocrit 21.9 % (39.6-49.0); Lymphocytes % 20.9 % (15.3-44.8); MCV 84.4 fL (80-100); MPV 7.4 fL (7.6-11.3); Platelets 160 thou/uL (152-406); RBC Red Blood Cell Count 2.59 M/uL (4.33-5.43)
[2023-02-28 03:42] LABS: Potassium 3.7 mEq/L (3.5-5.1)
[2023-02-28] MEDS: LEVOTHYROXINE SOD 0.05 MG TABLET PO SCH (05:52)
[2023-02-28] MEDS: METOPROLOL TAR 50 MG TAB PO SCH ×2 (05:52→17:12)
[2023-02-28] MEDS: NITROGLYCERIN 1 GM PKT TD SCH ×4 (05:54→17:13)
[2023-02-28] MEDS: CALCITROL 0.25 MCG CAP PO SCH (08:33)
[2023-02-28] MEDS: cloNIDine HCL 0.1 MG TAB PO SCH ×3 (08:34→21:00)
[2023-02-28] MEDS: ISOSORBIDE MONO SR 30 MG TAB PO SCH (08:35)
[2023-02-28] MEDS: SEVELAMER CARBONATE 800 MG TABLET PO SCH ×3 (08:35→17:12)
[2023-02-28] MEDS: allopurinoL 100 MG TAB PO SCH (08:35)
[2023-02-28] MEDS: HYDRALAZINE HCL 25 MG TABLET PO SCH ×3 (08:35→21:00)
[2023-02-28] MEDS: GABAPENTIN 100 MG CAP PO SCH ×3 (08:36→21:18)
[2023-02-28] MEDS: INSULIN -REGULAR HUMAN 50 UNIT/0.5 ML ML SQ SCH ×4 (08:36→21:18)
[2023-02-28] MEDS: FUROSEMIDE 40 MG/4 ML VIAL IV SCH ×2 (08:36→17:12)
[2023-02-28] MEDS: OMEGA PO SCH ×2 (09:00→21:00)
[2023-02-28] MEDS: EPA PO SCH ×2 (09:00→21:00)
[2023-02-28] MEDS: FISH OIL PO SCH ×2 (09:00→21:00)
[2023-02-28] MEDS: HOME MED 1 EA UNK (Linaclotide [Linzess] 145 MCG Capsule) PO SCH (09:00)
[2023-02-28] MEDS: [UNRECOGNIZED DRUG - OTHER] PO SCH ×2 (09:00→21:00)
[2023-02-28] MEDS: DHA PO SCH ×2 (09:00→21:00)
[2023-02-28] MEDS ORDERED: POTASSIUM CL SA 10 MEQ TAB PO ONE (09:00)
[2023-02-28] MEDS: lisinopriL 20 MG TAB PO SCH (12:39)
--- NOTE | 2023-02-28 13:07 | EKG ---
Test Date: 2023-02-24 Test Time: 16:49:52 Supervisor [employer]: ONEIDA MEASUREMENT RESULTS: Intervals: Rate: 115 [place]: QRSD: 94 QT: 346 QTc: 478 [place]: P: [place]: QRS: 62 T: 85 INTERPRETIVE STATEMENTS: Atrial fibrillation with rapid ventricular response with premature ventricular or aberrantly conducted complexes Nonspecific ST and T wave abnormality, probably digitalis effect Abnormal ECG Compared to ECG 02/20/2023 15:24:26 Ventricular premature complex(es) now present ST (T wave) deviation now present Sinus rhythm no longer present Electronically Signed On 02-28-23 13:03:45 CDT by Arie Irwin
--- NOTE | 2023-02-28 15:59 | PN ---
Date of Progress Note: 02/28/2023 Subjective: The patient was admitted with acute kidney injury on advanced chronic kidney disease, over volume. The patient was initiated on dialysis, tolerated the dialysis. Physical Examination: Vital Signs: Blood pressure 143/67, pulse of 66, afebrile. Chest: Crackles bilateral. Heart: S1, S2. Systolic murmur. Abdomen: Soft, nontender. Extremities: +3 edema. Laboratory Data: Hemoglobin 7.3. Sodium 137, potassium 3.7, bicarb 28, BUN 44, creatinine 4, calcium 8.4. Current Medications: The patient on include; 1. Atorvastatin. 2. Clonidine. 3. Isosorbide 100 t.i.d. 4. Lisinopril 20 daily. 5. Metoprolol. 6. Renvela. 7. Lasix. 8. Levothyroxine. 9. [place]-3. 10. Calcitriol. Assessment And Plan: 1. Acute kidney injury on advanced chronic kidney disease, progression to end- stage renal disease, over volume. I am going to continue the patient on dialysis. We will arrange for the dialysis for the patient. The patient is going to receive dialysis. Today from now on, hopefully we will do the patient as TTS and we will follow up. 2. Hypertension. Continue to utilize blood pressure for more ultrafiltration. I am going to add lisinopril to his regimen. 3. Anasarca secondary to renal failure, nephrotic range of proteinuria. We will continue to optimize fluid status for the patient. 4. Diabetes as by primary. 5. Respiratory failure secondary to over volume, obstructive sleep apnea as by Pulmonary. We will optimize fluid status. Time spent examining the patient [id number], reviewing data, lab and radiology, placing order, discussing the case with the patient, discussing the case with the cleaning team member including the hospitalist and nursing staff more than 35 minutes. GEOFF/SHY Voice ID: [id number] Report ID: [id number] MCKAYLA
--- NOTE | 2023-02-28 17:59 | PN ---
Date of Progress Note: 02/28/2023 Subjective: Seen by bedside. Heart rate is controlled. Doing clinically much better. Review of Systems: There is no chest pain or shortness of breath. No nausea, vomiting, or diarrhea. No abdominal pain. No dysuria, polyuria, or urinary urgency. He has lower extremity edema with improvement. Physical Examination: Vital Signs: Reviewed. Head and Neck: Pupils are equal, reactive to light. Intact eye movements. No JVD. No cervical lym phadenopathy. Neck is supple. Thyroid is not enlarged. Lungs: Clear to auscultation bilaterally. No rhonchi, wheezing, or crackles. No accessory muscle u se. Heart: Irregular. No extra sounds. Abdomen: Soft, nontender. Bowel sounds positive. No organomegaly. No masses or hernia. No rigidi ty or rebound. Extremities: Edema massive 3+. No clubbing or cyanosis. Intact pulses. Skin: No rash. No nodule. Neurologic: Alert, awake. No acute focal deficits appreciated. Investigations: Labs reviewed. Assessment And Recommendations: 1.Atrial fibrillation, now it is controlled. Had Eliquis 2.5 mg twice a day. 2.Hypertension. Blood pressure is much better after fluid removal. Continue current management. 3.Acute on chronic diastolic heart failure exacerbation with advanced kidney disease, now on dialysi s. Fluid management as per dialysis. SR/MODL Voice ID: [id number] Report ID: [id number]
--- NOTE | 2023-02-28 19:46 | P.PN ---
Subjective Date of Service: 02/28/23 Chief Complaint: shortness of breath No new events. He reports significant improvement in his symptoms. He has been able to tolerate PT, but becomes short of breath with minimal exertion. Plan for dialysis today. He denies any chest pain or palpitations. Review of Systems 10-point ROS is otherwise unremarkable Respiratory: SOB with Excertion Cardiovascular: Edema Physical Examination - Vital Signs Temperature: 97.0 F Blood Pressure: 171/74 Pulse: 63 Respirations: 16 Pulse Ox (%): 94 - Studies Medications List Reviewed: Yes Assessment And Plan - Plan - Physical Exam General: Alert, In no apparent distress, Oriented x3 HEENT: Atraumatic, Mucous membr. moist/pink, Sclerae nonicteric Neck: JVD not distended Respiratory: Diminished, Crackles/rales (bibasilar) Cardiovascular: Regular rate/rhythm, No murmurs, Edema (2+ BLE) Gastrointestinal: Normal bowel sounds, Soft, Non-distended, No tenderness, No rebound, No guarding Musculoskeletal: Right foot wound covered in clean dressing Neurological: Normal speech, Normal affect # Hypertensive Emergency with Acute on Chronic Decompensated Diastolic Congestive Heart Failure Exacerbation # Severe Pulmonary Hypertension Blood pressure on presentation was as high as 224/95. - Consult Cardiology - recommendations appreciated - Transthoracic Echocardiogram = "1. normal left ventricular ejection fraction 55-60% with normal wall motion 2. mild concentric left ventricular hypertrophy 3. mild mitral regurgitation 4. mild tricuspid regurgitation 5. severe pulmonary hypertension with right ventricular systolic pressure of greater than 60 mmHg" - Volume removal via iHD - Continue furosemide, hydralazine, clonidine, Imdur, metoprolol - Daily weights - Strict I/O - Cardiac diet, 1.5 L fluid restriction, 2 g Na restriction # KDIGO Stage III Acute Kidney Injury on Chronic Kidney Disease Stage V - Nephrology consulted and spoke with Dr. 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 Soft tissue edema and ill-defined complex collections along the lower leg, in the setting of prior trauma, could relate to a seroma, resolving/organizing hematoma, or possibly a Dimas-Benny lesion" - Serial exams Obtain x-ray to evaluate for possible osteomyelitis Jose Soria M.D.
--- NOTE | 2023-02-28 20:53 | RAD REPORT ---
EXAM DESCRIPTION: RAD - Foot Right 3 View - 02/28/2023 8:46 pm CLINICAL HISTORY: evaluate for osteomyelitis COMPARISON: No comparisons FINDINGS: There is a large amount of soft tissue swelling along the dorsum of the foot. No fracture or dislocation. No radiographic evidence of osteomyelitis. Small plantar calcaneal spur.
[2023-02-28] MEDS: APIXABAN 2.5 MG TABLET PO SCH (21:18)
[2023-02-28] MEDS: ATORVASTATIN 10 MG TAB PO SCH (21:18)
[2023-02-28] MEDS: MEDIHONEY 44 ML TOPICAL TUBE TOP SCH (21:21)
[2023-03-01 02:53] LABS: Hematocrit 22.9 % (39.6-49.0)
[2023-03-01 03:23] LABS: Potassium 3.8 mEq/L (3.5-5.1)
[2023-03-01] MEDS: METOPROLOL TAR 50 MG TAB PO SCH ×2 (05:39→18:31)
[2023-03-01] MEDS: NITROGLYCERIN 1 GM PKT TD SCH ×5 (05:40→23:56)
[2023-03-01] MEDS: LEVOTHYROXINE SOD 0.05 MG TABLET PO SCH (05:44)
[2023-03-01] MEDS: INSULIN -REGULAR HUMAN 50 UNIT/0.5 ML ML SQ SCH ×5 (07:30→20:50)
[2023-03-01] MEDS: FISH OIL PO SCH ×2 (09:00→20:52)
[2023-03-01] MEDS: DHA PO SCH ×2 (09:00→20:52)
[2023-03-01] MEDS: HOME MED 1 EA UNK (Linaclotide [Linzess] 145 MCG Capsule) PO SCH (09:00)
[2023-03-01] MEDS: EPA PO SCH ×2 (09:00→20:52)
[2023-03-01] MEDS: OMEGA PO SCH ×2 (09:00→20:52)
[2023-03-01] MEDS: [UNRECOGNIZED DRUG - OTHER] PO SCH ×2 (09:00→20:52)
[2023-03-01] MEDS ORDERED: POTASSIUM CL SA 10 MEQ TAB PO ONE (09:00)
[2023-03-01] MEDS: cloNIDine HCL 0.1 MG TAB PO SCH ×3 (09:26→20:52)
[2023-03-01] MEDS: ISOSORBIDE MONO SR 30 MG TAB PO SCH (09:26)
[2023-03-01] MEDS: APIXABAN 2.5 MG TABLET PO SCH ×2 (09:26→20:51)
[2023-03-01] MEDS: allopurinoL 100 MG TAB PO SCH (09:26)
[2023-03-01] MEDS: GABAPENTIN 100 MG CAP PO SCH ×3 (09:27→20:51)
[2023-03-01] MEDS: SEVELAMER CARBONATE 800 MG TABLET PO SCH ×3 (09:27→18:31)
[2023-03-01] MEDS: FUROSEMIDE 40 MG/4 ML VIAL IV SCH ×2 (09:27→18:32)
[2023-03-01] MEDS: HYDRALAZINE HCL 25 MG TABLET PO SCH ×3 (09:27→20:52)
[2023-03-01] MEDS: lisinopriL 20 MG TAB PO SCH (09:27)
[2023-03-01] MEDS: INSULIN GLARGINE 100 UNIT/ML SQ SCH (10:57)
[2023-03-01] MEDS: HYDRALAZINE HCL 20 MG/ML VIAL IV PRN (11:32)
[2023-03-01] MEDS: SOD FERRIC GLUC COMPLX/SUCROSE 125 MG in NA CHLORIDE 0.9% 100 ML IV SCH (11:45)
--- NOTE | 2023-03-01 13:12 | PN ---
Date of Progress Note: 03/01/2023 Subjective: The patient was admitted with acute kidney injury on advanced chronic kidney disease. The patient was initiated on dialysis. The patient tolerating the dialysis very well. The patient waiting for a possible MRI today. Physical Examination: Vital Signs: Blood pressure 202/86, pulse of 67. Chest: Decreased entry bilateral base. Heart: S1, S2. Systolic murmur. Abdomen: Soft, nontender. Extremity: Dressing on the right foot. Laboratory Data: Hemoglobin 7.6. Sodium 138, potassium 3.8, bicarb 27, BUN 49, creatinine 4.8, calcium 7.9. Current Medications: The patient on include heparin, Eliquis, IV iron, calcium carbonate, atorvastatin, clonidine 0.3 t.i.d. hydralazine 100 t.i.d., isosorbide 60, lisinopril 20 daily, metoprolol 50, nitroglycerin, Renvela, Lasix 40 b.i.d., levothyroxine, allopurinol. Assessment And Plan: 1. Acute kidney injury secondary to cardiorenal on advanced chronic kidney disease, progression to end-stage renal disease, over volume. The patient set up for dialysis Monday, Monday, Monday at [facility], so we will do dialysis today. Then, the patient can be discharged, okay from the Renal standpoint for MRI. 2. Hypertension, not controlled. We will follow up blood pressure after dialysis. We will continue aggressive diuresis. 3. Anemia of chronic kidney disease. Continue EDUARDO. Continue IV iron, p.r.n. transfusion. 4. Congestive heart failure with exacerbation. Continue diuresis. We will optimize fluid status with ultrafiltration. 5. Diabetes as by primary. 6. Foot infection. Plan for MRI. We will follow up. Time spent examining the patient [id number], reviewing data, lab and radiology, placing order, discussing the case with the patient, discussing the case with the guest service team leader including the hospitalist and nursing staff more than 35 minutes. KATHERINE Voice ID: [id number] Report ID: [id number] MCKAYLA
[2023-03-01 14:42] LABS: Hematocrit 25.8 % (39.6-49.0)
[2023-03-01] MEDS ORDERED: AMLODIPINE 5 MG TAB PO ONE (17:42)
--- NOTE | 2023-03-01 17:51 | P.PN ---
Subjective Date of Service: 03/01/23 Chief Complaint: shortness of breath No new events. His symptoms continue to improve. Foot x-ray was without convincing findings of osteomyelitis. MRI is pending. He denies any fevers or chills. Review of Systems 10-point ROS is otherwise unremarkable Cardiovascular: Edema Physical Examination - Vital Signs Temperature: 98.3 F Blood Pressure: 199/96 Pulse: 87 Respirations: 16 Pulse Ox (%): 94 - Studies Medications List Reviewed: Yes Assessment And Plan - Plan - Physical Exam General: Alert, In no apparent distress, Oriented x3 HEENT: Atraumatic, Mucous membr. moist/pink, Sclerae nonicteric Neck: JVD not distended Respiratory: Diminished, Crackles/rales (faint bibasilar) Cardiovascular: Regular rate/rhythm, No murmurs, Edema (2+ BLE) Gastrointestinal: Normal bowel sounds, Soft, Non-distended, No tenderness Musculoskeletal: Right foot wound covered in clean dressing Neurological: Normal speech, Normal affect # Hypertensive Emergency with Acute on Chronic Decompensated Diastolic Congestive Heart Failure Exacerbation # Severe Pulmonary Hypertension Blood pressure on presentation was as high as 224/95. - Consult Cardiology - recommendations appreciated - Transthoracic Echocardiogram = "1. normal left ventricular ejection fraction 55-60% with normal wall motion 2. mild concentric left ventricular hypertrophy 3. mild mitral regurgitation 4. mild tricuspid regurgitation 5. severe pulmonary hypertension with right ventricular systolic pressure of greater than 60 mmHg" - Volume removal via iHD - Continue furosemide, hydralazine, clonidine, Imdur, metoprolol - Daily weights - Strict I/O - Cardiac diet, 1.5 L fluid restriction, 2 g Na restriction # KDIGO Stage III Acute Kidney Injury on Chronic Kidney Disease Stage V - Nephrology consulted and spoke with Dr. 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 Soft tissue edema and ill-defined complex collections along the lower leg, in the setting of prior trauma, could relate to a seroma, resolving/organizing hematoma, or possibly a Dimas-Benny lesion" - Serial exams - Right foot x-ray = "there is a large amount of soft tissue swelling along the dorsum of the foot. No fracture or dislocation. No radiographic evidence of osteomyelitis. Small plantar calcaneal spur" - Right foot MRI requested Jose Soria M.D.
--- NOTE | 2023-03-01 19:12 | PN ---
Date of Progress Note: 03/01/2023 Subjective: Seen by bedside. Doing gradually better. Review of Systems: No chest pain, shortness of breath, orthopnea, cough. No nausea, vomiting. There is diarrhea. All other systems reviewed and they were negative. Physical Examination: Vital Signs: Reviewed. Head and Neck: Pupils are equal, reactive to light. Intact eye movements. No JVD. No cervical lym phadenopathy. Neck is supple. Thyroid is not enlarged. Lungs: Clear to auscultation bilaterally. No rhonchi, wheezing, or crackles. No accessory muscle u se. Heart: Regular rate and rhythm. No extra sounds. Abdomen: Soft, nontender. Bowel sounds positive. No organomegaly. No masses or hernia. No rigidi ty or rebound. Extremities: Massive edema. No clubbing or cyanosis. Intact pulses. Skin: No rash. Neurologic: Alert, awake, oriented x3. No acute focal deficits appreciated. Investigations: BUN 49, creatinine 4.86, and hemoglobin is 8.5. Assessment And Recommendations: 1.Atrial fibrillation with rapid ventricular response, now in sinus rhythm. Continue metoprolol and Eliquis. 2.Acute on chronic diastolic heart failure exacerbation. Getting better with fluid management and d ialysis. 3.Malignant hypertension. Recommend to obtain renal artery Doppler bilaterally. This could be the cause of his malignant hypertension and also start him on amlodipine 5 mg daily, advance dose as need ed, and further fluid management should improve the blood pressure. 4.Dyslipidemia. Continue statin. This patient will need evaluation with a cardiac stress test that can be done as an outpatient once he is discharged. SR/MODL Voice ID: [id number] Report ID: [id number]
[2023-03-01] MEDS: ATORVASTATIN 10 MG TAB PO SCH (20:51)
--- NOTE | 2023-03-01 21:09 | RAD REPORT ---
EXAM DESCRIPTION: MRI - Foot Right Wo Cont - 03/01/2023 8:54 pm CLINICAL HISTORY: eval for osteomyelitis Pain and swelling to the right foot COMPARISON: Foot Right 3 View dated 02/28/2023 FINDINGS: There is large amount of edema thickening of the soft tissues along the dorsum of the foot measuring up to 3 cm. There is significant edema and skin thickening present. No underlying evidence osteomyelitis. No aggressive marrow lesion. No localized fluid collection. IMPRESSION: No evidence of osteomyelitis is seen.
[2023-03-01] MEDS: MEDIHONEY 44 ML TOPICAL TUBE TOP SCH (21:53)
[2023-03-02 03:36] LABS: Potassium 3.6 mEq/L (3.5-5.1)
[2023-03-02] MEDS: METOPROLOL TAR 50 MG TAB PO SCH (05:47)
[2023-03-02] MEDS: LEVOTHYROXINE SOD 0.05 MG TABLET PO SCH (05:48)
[2023-03-02] MEDS: NITROGLYCERIN 1 GM PKT TD SCH ×2 (05:48→12:00)
[2023-03-02] MEDS ORDERED: POTASSIUM CL SA 10 MEQ TAB PO ONE (06:00)
--- NOTE | 2023-03-02 08:19 | P.CNS ---
Date of Consult: 03/02/23 Reason for Consult: eval for osteo Chief Complaint: shortness of breath Allergies Bleach (Sodium Hypochlorite) Adverse Reaction (Verified 02/20/23 19:08) Itching/Hives/Rash Home medications list reviewed: Yes Home Medications: Allopurinol 100 mg PO DAILY 02/21/23 Carvedilol [Coreg] 25 mg PO BID 02/21/23 Cholecalciferol (Vitamin D3) [Vitamin D3] 25 mcg PO DAILY 02/21/23 Clonidine HCl [Catapres*] 0.2 mg PO TID 02/21/23 Empagliflozin [Jardiance] 10 mg PO DAILY 02/21/23 Ergocalciferol (Vitamin D2) [Drisdol] 50,000 unit PO DIRECTED 02/21/23 Ferrous Sulfate [Iron] 325 mg PO DAILY 02/21/23 Furosemide 60 mg PO BID 02/21/23 Gabapentin 100 mg PO TID 02/21/23 Pamela Root 550 mg PO DAILY 02/21/23 Ginkgo Biloba Platinum Extract [Ginkgo Biloba] 120 mg PO DAILY 02/21/23 Hydralazine [Apresoline*] 50 mg PO TID 02/21/23 Insulin Aspart 20 units SQ TIDWM 02/21/23 Insulin Glargine,Hum.rec.anlog [Basaglar Kwikpen U-100] 75 unit SQ BEDTIME 02/21/23 Isosorbide Mononitrate [Isosorbide Mononitrate ER] 30 mg PO DAILY 02/21/23 Levothyroxine Sodium 50 mcg PO DAILY 02/21/23 Linaclotide [Linzess] 145 mcg PO DAILY 02/21/23 Magnesium Oxide [Magnesium] 500 mg PO DAILY 02/21/23 Mcintosh-3/Dha/Epa/Fish Oil [Fish Oil Conc 1,000 mg Softgel] 300 mg PO BID 02/21/23 Pravastatin [Pravachol*] 40 mg PO BEDTIME 02/21/23 Sodium Bicarbonate 650 mg PO TID 02/21/23 Turmeric Root Extract [Turmeric] 500 mg PO DAILY 02/21/23 Ubidecarenone [Co Q-10] 100 mg PO DAILY 02/21/23 glipiZIDE [Glipizide] 10 mg PO DAILY WITH BREAKFAST 02/21/23 - Past Medical/Surgical History -: Hypertensive disorder -: enlarged heart -: peripheral neuropathy -: sleep apnea -: Diabetes mellitus -: chronic kidney disease -: Appendectomy -: knee surgery -: cataracts - Family History Father History Unknown: Yes Medical History: Heart disease, Diabetes, Blood disorders, Kidney disease Mother History Unknown: Yes Medical History: Heart disease - Social History Alcohol use: No CD- Drugs: No Caffeine use: Yes Place of Residence: Home Physical Examination Temp Pulse Resp BP Pulse Ox 98.8 F 71 20 149/65 H 90 L 03/02/23 04:00 03/02/23 05:48 03/02/23 04:00 03/02/23 05:48 03/02/23 04:00 Conclusions/Impression: Problem List Cellulitis of Right Foot - MRI right foot 03/01: "No evidence of osteomyelitis is seen."
[2023-03-02] MEDS ORDERED: HOME MED 1 EA UNK (Linaclotide [Linzess] 145 MCG Capsule) PO SCH (09:00)
[2023-03-02] MEDS: [UNRECOGNIZED DRUG - OTHER] PO SCH (09:00)
[2023-03-02] MEDS: EPA PO SCH (09:00)
[2023-03-02] MEDS: DHA PO SCH (09:00)
[2023-03-02] MEDS: FISH OIL PO SCH (09:00)
[2023-03-02] MEDS: OMEGA PO SCH (09:00)
[2023-03-02] MEDS ORDERED: AMLODIPINE 5 MG TAB PO SCH (09:00)
[2023-03-02] MEDS: MEDIHONEY 44 ML TOPICAL TUBE TOP SCH (09:07)
[2023-03-02] MEDS: INSULIN GLARGINE 100 UNIT/ML SQ SCH (09:08)
[2023-03-02] MEDS: HYDRALAZINE HCL 25 MG TABLET PO SCH (09:09)
[2023-03-02] MEDS: ISOSORBIDE MONO SR 30 MG TAB PO SCH (09:09)
[2023-03-02] MEDS: cloNIDine HCL 0.1 MG TAB PO SCH (09:09)
[2023-03-02] MEDS: allopurinoL 100 MG TAB PO SCH (09:09)
[2023-03-02] MEDS: APIXABAN 2.5 MG TABLET PO SCH (09:09)
[2023-03-02] MEDS: GABAPENTIN 100 MG CAP PO SCH (09:10)
[2023-03-02] MEDS: FUROSEMIDE 40 MG/4 ML VIAL IV SCH (09:10)
[2023-03-02] MEDS: lisinopriL 20 MG TAB PO SCH (09:10)
[2023-03-02] MEDS: CALCITROL 0.25 MCG CAP PO SCH (09:10)
[2023-03-02] MEDS: SEVELAMER CARBONATE 800 MG TABLET PO SCH ×2 (09:11→13:24)
[2023-03-02] MEDS: INSULIN -REGULAR HUMAN 50 UNIT/0.5 ML ML SQ SCH ×2 (09:11→13:24)
[2023-03-02 09:37] VITALS: O2SAT 96
--- NOTE | 2023-03-02 11:55 | P.DS ---
Admission Date: 02/20/23 Discharge Date: 03/02/23 Disposition: ROUTINE DISCHARGE Discharge Condition: GOOD Reason for Admission: shortness of breath Consultations: 1. Nephrology 2. Cardiology Procedures: -02/23/2023 - Placement of Hemodialysis Catheter Hospital Course: DIAGNOSES: # Hypertensive Emergency with Acute on Chronic Decompensated Diastolic Conges tive Heart Failure Exacerbation # KDIGO Stage III Acute Kidney Injury on Chronic Kidney Disease Stage V now with progressed to End-Stage Renal Disease # Paroxysmal Atrial Fibrillation # Severe Pulmonary Hypertension # Type II Diabetes Mellitus complicated by Peripheral Neuropathy and Right Foot Diabetic Foot Ulcer # Hypothyroidism # Dyslipidemia # Obstrucive Sleep Apnea HOSPITAL COURSE: Mr. Jose Gonzales is a pleasant 57 year old male with a past medical history significant for chronic diastolic congestive heart failure, chronic kidney disease stage V (now progressed to end-stage renal disease), type II diabetes mellitus, hypothyroidism, obstructive sleep apnea, and dyslipidemia who was admitted to the [facility] on 02/20/2023 for shortness of breath and edema. He was admitted to the Medicine service. Upon further evaluation, he was found to have hypertensive emergency with an acute decompensated congestive heart failure exacerbation in addition to an acute kidney injury on chronic kidney disease stage V. Cardiology and Nephrology were consulted and he was evaluated by Dr. Irwin and Dr. Morin, respectively. He was treated with IV furosemide but, ultimately, required initiation of hemodialysis. He received multiple sessions of hemodialysis and, over the course of his hospitalization, his symptoms improved significantly. This morning, Dr. Morin has cleared him for discharge. Mr. Gonzales was advised that he have a renal artery ultrasound, but he stated that he would like to be discharged. He states that he will arrange this as an outpatient with his PCP (Dr. Neves). Of note, he was noted to have a right foot diabetic foot ulcer. His right foot x-ray revealed, "there is a large amount of soft tissue swelling along the dorsum of the foot. No fracture or dislocation. No radiographic evidence of osteomyelitis. Small plantar calcaneal spur." His right foot MRI revealed, "no evidence of osteomyelitis is seen." His right lower extremity Doppler revealed, "no DVT in the right lower extremity. Soft tissue edema and ill-defined complex collections along the lower leg, in the setting of prior trauma, could relate to a seroma, resolving/organizing hematoma, or possibly a Dimas-Benny lesion." Over the course of his hospitalization, his swelling improved significantly. He denies any recent trauma to suggest a hematoma or Dimas-Benny lesion. I offered him a follow-up ultrasound, but he declined. He stated that he will schedule this with Dr. Neves. I have called and spoken with Dr. Neves, who verbalized that he will order the right lower extremity Doppler as well as the renal artery ultrasound. He plans to see him in the office early next week. On 03/02/2023, he was seen on rounds and deemed medically stable for discharge. He was discharged with instructions to schedule follow-up appointments with his PCP (Dr. Neves), with Cardiology (Dr. Irwin), and with Nephrology (Dr. Morin)]. He was provided prescriptions for amlodipine, sevelamer, metoprolol, and apixaban. He was given the opportunity to ask questions and reported no further questions. Furthermore, all questions were answered to the best of my ability. A copy of this discharge summary will be sent to the above providers to facilitate continuity of care. Today, I personally spent 35 minutes on his case, of which greater than 50% of the time was spent in patient education, counseling, and coordination of care as described above. - Physical Exam General: Alert, In no apparent distress, Oriented x3 HEENT: Atraumatic, Mucous membr. moist/pink, Sclerae nonicteric Neck: JVD not distended Respiratory: Diminished, but clear to auscultation bilaterally Cardiovascular: Regular rate/rhythm, No murmurs, Edema (1-2+ BLE) Gastrointestinal: Normal bowel sounds, Soft, Non-distended, No tenderness Musculoskeletal: Right foot wound covered in clean dressing Neurological: Normal speech, Normal affect Vital Signs/Physical Exam: Temp Pulse Resp BP Pulse Ox 97.8 F 73 20 155/85 H 98 03/02/23 12:45 03/02/23 12:45 03/02/23 12:45 03/02/23 12:45 03/02/23 12:45 Laboratory Data at Discharge: WBC 6.70 thou/uL (4.3-10.9) 02/28/23 02:00 Hgb 8.5 g/dL (13.6-17.9) L D 03/01/23 14:16 Hct 25.8 % (39.6-49.0) L 03/01/23 14:16 Plt Count 160 thou/uL (152-406) 02/28/23 02:00 PT 11.3 SECONDS (9.2-12.8) 02/22/23 13:55 INR 0.95 02/22/23 13:55 Sodium 138 mEq/L (136-145) 03/02/23 01:47 Potassium 3.6 mEq/L (3.5-5.1) 03/02/23 01:47 BUN 32 mg/dL (7-18) H 03/02/23 01:47 Creatinine 3.92 mg/dL (0.70-1.30) H 03/02/23 01:47 Glucose 213 mg/dL (74-106) H 03/02/23 01:47 Uric Acid 7.1 mg/dL (3.5-7.2) 02/23/23 04:22 Phosphorus 4.8 mg/dL (2.5-4.9) 02/27/23 06:45 Magnesium 2.4 mg/dL (1.6-2.4) 02/27/23 06:45 Total Bilirubin 0.3 mg/dL (0.2-1.0) 02/27/23 06:45 AST 23 U/L (15-37) 02/27/23 06:45 ALT 16 U/L (16-61) 02/27/23 06:45 Alkaline Phosphatase 72 U/L (45-117) 02/27/23 06:45 Home Medications: Allopurinol 100 mg PO DAILY 02/21/23 Clonidine HCl [Catapres*] 0.2 mg PO TID 02/21/23 Ergocalciferol (Vitamin D2) [Drisdol] 50,000 unit PO DIRECTED 02/21/23 Ferrous Sulfate [Iron] 325 mg PO DAILY 02/21/23 Furosemide 60 mg PO BID 02/21/23 Gabapentin 100 mg PO TID 02/21/23 Hydralazine [Apresoline*] 50 mg PO TID 02/21/23 Isosorbide Mononitrate [Isosorbide Mononitrate ER] 30 mg PO DAILY 02/21/23 Levothyroxine Sodium 50 mcg PO DAILY 02/21/23 Linaclotide [Linzess] 145 mcg PO DAILY 02/21/23 Magnesium Oxide [Magnesium] 500 mg PO DAILY 02/21/23 Bromide-3/Dha/Epa/Fish Oil [Fish Oil Conc 1,000 mg Softgel] 300 mg PO BID 02/21/23 Pravastatin [Pravachol*] 40 mg PO BEDTIME 02/21/23 Sodium Bicarbonate 650 mg PO TID 02/21/23 Turmeric Root Extract [Turmeric] 500 mg PO DAILY 02/21/23 Ubidecarenone [Co Q-10] 100 mg PO DAILY 02/21/23 Amlodipine [Norvasc*] 5 mg PO DAILY #30 tab 03/02/23 Apixaban [Eliquis *] 2.5 mg PO BID #60 tab 03/02/23 Calcium Carbonate [Tums Regular*] 500 mg PO QID PRN tab 03/02/23 Insulin Glargine,Hum.rec.anlog [Semglee] 30 unit SQ DAILY ml 03/02/23 Medihoney [Medihoney Woundcare Gel*] 1 appl TOP DAILY tube 03/02/23 Metoprolol Tartrate [Lopressor*] 50 mg PO BID 6AM 6PM #60 tab 03/02/23 Sevelamer Carbonate [Renvela*] 800 mg PO TIDWM #90 tab 03/02/23 New Medications: Apixaban [Eliquis *] 2.5 mg PO BID #60 tab Metoprolol Tartrate [Lopressor*] 50 mg PO BID 6AM 6PM #60 tab Amlodipine [Norvasc*] 5 mg PO DAILY #30 tab Sevelamer Carbonate [Renvela*] 800 mg PO TIDWM #90 tab Physician Discharge Instructions: 1. Please call and schedule a follow-up appointment with your PCP (Dr. Neves) in 3-5 days - Your blood work showed anemia. Please discuss further evaluation, including colonoscopy, with your PCP - As we discussed, there is significant swelling in your right leg. Please have Dr. Neves order a repeat ultrasound at your next visit 2. Please call and schedule a follow-up appointment with Nephrology (Dr. Morin) in 5-7 days - He will order an ultrasound of your kidney arteries (renal artery) to evaluate for different causes of high blood pressure 3. Please call and schedule a follow-up appointment with Cardiology (Dr. Irwin) in 5-7 days - Please follow-up with your PCP for medication refills/adjustments Diet: ADA, Renal Activity: Ad yeni Followup: Lizbet Morin MD [ACTIVE - CAN ADMIT] - Otf Neves DO [Primary Care Provider] - Arie Irwin MD [ACTIVE - CAN ADMIT] - Time spent managing pt's care (in minutes): 35
[2023-03-02 13:24] VITALS: TEMP 97.8
[2023-03-02 13:29] VITALS: BP 155/85
--- NOTE | 2023-03-02 19:50 | PN ---
Date of Progress Note: 03/02/2023 Subjective: Seen by bedside. No new complaints. Review of Systems: No chest pain, shortness of breath, orthopnea, or cough. No nausea, vomiting, or diarrhea. He has _ movement. All other systems were reviewed, they are negative. Objective: Vital Signs: Reviewed. Head and Neck: Pupils are equal, reactive to light. Intact eye movements. No JVD. No cervical lym phadenopathy. Neck is supple. Thyroid is not enlarged. Lungs: Clear to auscultation bilaterally. No rhonchi, wheezing, or crackles. No accessory muscle u se. Heart: Regular rate and rhythm. No extra sounds. Abdomen: Soft, nontender. Bowel sounds positive. No organomegaly. No masses or hernia. No rigidi ty or rebound. Extremities: No edema, clubbing, or cyanosis. Intact pulses. Skin: No rash. No nodule. Neurologic: Alert, awake, oriented x3. No acute focal deficits appreciated. Investigations: Labs were reviewed. Assessment And Recommendations: 1.Atrial fibrillation, now he is in sinus. Continue current therapy including apixaban and metoprol ol. 2.Hypertension. Blood pressure has improved. Continue current therapy. 3.Advanced kidney failure, started on dialysis. 4.Fluid overload due to advanced kidney failure. This is improved. SR/MODL Voice ID: [id number] Report ID: [id number]
--- NOTE | 2023-03-03 00:44 | PN ---
Date of Progress Note: 03/02/2023 Chief Complaint: Acute kidney injury secondary to cardiorenal syndrome with anasarca fluid overload. History Of Present Illness: Patient was initiated on hemodialysis. Has been dialyzed with daily epi atment subsequently when fluid overload has resolved. Patient is on dialysis 3 times per week on Mon, Monday, Monday. Today he denies complaints. He wants to be discharged home. Physical Examination: Lungs: Decreased breath sounds bilaterally. No rhonchi. No crackles. Heart: S1, S2. Abdomen: Obese, soft, nontender. Extremities: Edema present in both ankles. Impression: 1.Chronic kidney disease stage 4, advanced to stage 5. Progression to end-stage renal disease and t he patient is initiated on chronic hemodialysis. The patient received dialysis to control severe flu id overload and provide metabolic clearance. The patient received dialysis yesterday. 2.Hypertension. Blood pressure is controlled. Continue current medication. 3.Obtain ultrafiltration with dialysis to prevent fluid overload. Continue fluid restriction and lo w-sodium diet. 4.Anemia due to chronic kidney disease. Continue IV iron and EDUARDO. Adjust treatment according to la b results. 5.Secondary hyperparathyroidism. Calcium and phosphorus controlled in target range. Continue Renve la. 6.Congestive heart failure exacerbation. Patient will continue diuretic as needed, although patient is dialysis dependent and he will have dialysis and ultrafiltrat ion done tomorrow. EB/MODL Voice ID: [id number] Report ID: [id number]
== END 2023-03-02 14:15 | disposition home or self-care (01) | DRG 280 ==
LOC: ER 14:19 → ERHOLD 18:28 → 3RD-ICU 19:37 → 2ND 02-26 18:47
PROVIDERS: ADMIT Hospitalist; ATTEND Internal Medicine
PROC: 5A09557 Assistance with Respiratory Ventilation, Greater than 96 Consecutive Hours, Continuous Positive Airway Pressure (ICD-10-PCS; principal; 2023-02-20)
PROC: 5A1D70Z Performance of Urinary Filtration, Intermittent, Less than 6 Hours Per Day (ICD-10-PCS; 2023-02-23)
PROC: 02HV33Z Insertion of Infusion Device into Superior Vena Cava, Percutaneous Approach (ICD-10-PCS; 2023-02-23)
PROC: 0JH63XZ Insertion of Tunneled Vascular Access Device into Chest Subcutaneous Tissue and Fascia, Percutaneous Approach (ICD-10-PCS; 2023-02-23)
DX: I13.2 Hypertensive heart and chronic kidney disease with heart failure and with stage 5 chronic kidney disease, or end stage renal disease (principal); I50.33 Acute on chronic diastolic (congestive) heart failure; I21.4 Non-ST elevation (NSTEMI) myocardial infarction; N18.6 End stage renal disease; J96.90 Respiratory failure, unspecified, unspecified whether with hypoxia or hypercapnia; I16.1 Hypertensive emergency; N17.9 Acute kidney failure, unspecified; Z68.43 Body mass index [BMI] 50.0-59.9, adult; E87.20 Acidosis, unspecified; N25.81 Secondary hyperparathyroidism of renal origin; I13.0 Hypertensive heart and chronic kidney disease with heart failure and stage 1 through stage 4 chronic kidney disease, or unspecified chronic kidney disease; E11.22 Type 2 diabetes mellitus with diabetic chronic kidney disease; E11.42 Type 2 diabetes mellitus with diabetic polyneuropathy; E11.621 Type 2 diabetes mellitus with foot ulcer; L97.519 Non-pressure chronic ulcer of other part of right foot with unspecified severity; D63.1 Anemia in chronic kidney disease; D50.9 Iron deficiency anemia, unspecified; E66.01 Morbid (severe) obesity due to excess calories; I27.20 Pulmonary hypertension, unspecified; E87.5 Hyperkalemia; I48.91 Unspecified atrial fibrillation; E03.9 Hypothyroidism, unspecified; I08.1 Rheumatic disorders of both mitral and tricuspid valves; M25.561 Pain in right knee; G47.33 Obstructive sleep apnea (adult) (pediatric); E78.5 Hyperlipidemia, unspecified; S30.823A Blister (nonthermal) of scrotum and testes, initial encounter; B35.1 Tinea unguium; Z79.4 Long term (current) use of insulin; Z91.09 Other allergy status, other than to drugs and biological substances; Z79.02 Long term (current) use of antithrombotics/antiplatelets; Z79.01 Long term (current) use of anticoagulants; Z90.49 Acquired absence of other specified parts of digestive tract; Z79.890 Hormone replacement therapy; Z79.899 Other long term (current) drug therapy
CPT/HCPCS: 36415; 71045; 76000; 76770; 80048; 80053; 80069; 80076; 81001; 82550; 82570; 82607; 82652; 82728; 82805; 82947; 83540; 83735; 83880; 83970; 84100; 84156; 84300; 84443; 84466; 84484; 84550; 85014; 85018; 85025; 85044; 85610; 86021; 86704; 86705; 86706; 87340; 87522; 90935; 93005; 93306; 93971; 94660; 96365; 97110; 97116; 97161; 97530; 99285; A4216; C1752; C9113; J0360; J0690; J1644; J1815; J1940; J2001; J2250; J2405; J2704; J2916; J3010; J7040; J7050; P9047; Q5106

== ENCOUNTER 2023-04-26 15:20 | Emergency (ER) | payer OTHER ==
[2023-04-26 16:16] LABS: Protime INR 1.06
[2023-04-26 16:23] LABS: Absolute Lymphocytes (CBC) 1.8 K/uL (0.7-4.9); Lymphocytes % 19.6 % (15.3-44.8); MCV 86.4 fL (80-100); MPV 6.9 fL (7.6-11.3); Platelets 344 thou/uL (152-406); RBC Red Blood Cell Count 3.59 M/uL (4.33-5.43)
--- NOTE | 2023-04-26 16:25 | RAD REPORT ---
EXAM DESCRIPTION: Tree Single View04/26/2023 3:45 pm CLINICAL HISTORY: Chest pain COMPARISON: February 2023 FINDINGS: A pulmonary vascular congestion Lungs appear clear of acute infiltrate Heart is mildly to moderately enlarged Central venous catheter in place
[2023-04-26 16:28] LABS: Troponin High Sensitivity 21.5 pg/mL (<58.9)
--- OUTSIDE RECORDS SUMMARY | 2023-04-26 16:33 | XMS REPORT | Continuity of Care Document ---
:1965 Author Organization [facility] t Address [address] [facility] [address] [place] [address] Care Team Providers Name Role Phone Gena Genoveva GUSTAFSON Primary Care Physician Unavailable LARA ROGERS Attending Clinician Unavailable JACKY MATHEW Attending Clinician Unavailable DAX PRADO Attending Clinician Unavailable KRYSTYNA JOHNSON Attending Clinician Unavailable LETHA RODRIGUEZ Attending Clinician Unavailable ROGELIO OJEDA Attending Clinician Unavailable CARLOS NOEL Attending Clinician Unavailable PARRISH HALE Attending Clinician Unavailable LAB90 Attending Clinician Unavailable 1, OPTICAL COHERENCE TOMOGRAPHY Attending Clinician Unavailtyler TSE MD Attending Clinician Unavailable ROBYN CONNELLY Attending Clinician Unavailable Doctor Unassigned, [place] Attending Clinician Unavailable BEVERLY SMITH Attending Clinician Unavailable DIRK BLANC Attending Clinician Unavailable NAOMY CONN Attending Clinician Unavailable COVID-PFIZER [facility] Attending Clinician UnavailLetha Jones MD Attending Clinician [phone] Rogelio Ojeda MD Attending Clinician TOMOGRAPHY, [facility] OPTICAL COHERENCE Attending Clinician Unav Dirk Ashby MD Attending Clinician LAB47 Attending Clinician Unavailable Krystyna Johnson DO Attending Clinician NATALIE BACA Attending Clinician Unavailable PL, TECH 1 Attending Clinician Unavailable LAWANDA LYLES Attending Clinician Unavailable Lawanda Lyles PA-C Attending Clinician Domenica Arias MD Attending Clinician CHELLE CUTLER Attending Clinician Unavailable DOMENICA ARIAS Attending Clinician Unavailable TRED45 Attending Clinician Unavailable SWAB, FBMDC COVID SELF Attending Clinician Unavailable [id number]-MGW Attending Clinician Unavailable NARCISO GUPTA Attending Clinician Unavailable KAYLIE NICOLE Attending Clinician Unavailable Carlos Noel MD Attending Clinician DIANA MARROQUIN Attending Clinician Unavailable GERARDO HALE Attending Clinician Unavailable Payers Payer Name Policy Type Policy Number Effective Date Expiration Date Oziel GILBERT MA DUAL 7 [id number] 2021 COMPLETE CAP(HMO 00:00:00 D-SNP OA) MEDICAID-[facility] 6 [id number] 2021 00:00:00 KCA GOLD O 7 [id number] 2020 00:00:00 Problems Condition Condition Condition Status [...] Sleep Disease Active Overview: Yanely apnea apnea 14 Formattin Seybold 00:00: g of this - 00 note Externa might be l different from the original. 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 Nephrolog y-Dr. 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 12-16 Se ybold to to 00:00: - conditions conditions 00 Ex terna classified classified l elsewhere elsewhere (multi (multi [facility]) Mild major Mild major Disease Active K [...] 00 Externa diabetic diabetic l neuropathy neuropathy ([facility] (multi [facility]) Morbid Morbid Disease Active Yanely obesity obesity [...] current use of use of insulin insulin ([facility] (multi [facility]) Body mass Body mass Disease Active Ricardo sey index index 9-15 Seybold 40.0-44.9, 40.0-44.9, 00:00: adult adult 00 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 00 Clinical Psychiatrist 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, with eyes, with macular macular edema, edema, associated associated with type with type 2 diabetes 2 diabetes mellitus mellitus ([facility] (multi [facility]) 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 00: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 both y of both eyes eyes associated associated with type with type 2 diabetes 2 diabetes mellitus mellitus Diabetic Diabetic Disease Active 2021-0 Kelse y macular macular 9-07 Seybold edema of [...] Type 2 Disease Active Yanely diabetes diabetes - Seybol d mellitus mellitus 00:00: - with with 00 Externa hyperchole hyperchole l sterolemia sterolemia (multi (multi HCC) HCC) Essential Essential Disease Active Ricardo sey hypertensi [...] e heart 00:00: - failure) failure) 00 Clinical Psychiatrist a (multi (multi l HCC) HCC) Hypertensi Hypertensi Disease Active K elsey ve heart ve heart - Seybol d and renal and renal 00:00: - disease disease 00 Externa with with l congestive congestive heart heart failure failure (multi (multi HCC) HCC) Hyperchole Hyperchole Disease Active K elsey sterolemia sterolemia - Se ybold 00:00: - 00 Externa l Acute Acute Disease Active 2018-06 [facility] respirator respirator 1-05 it y of y failure y failure [place] [facility] Morbid Morbid Disease Active 2018-06 [facility] obesity obesity 05 ity of 00:00: [place] [facility] Hypertensi Hypertensi Disease Active 2018-06 [facility] ve ve 1-05 [facility] of emergency emergency 00:[place] [facility] Acute Acute Disease Active 2018-06 [facility] diastolic diastolic 1-05 [facility] of congestive congestive [place] [facility] failure failure Branch KEVIN on KEVIN on Disease Active 2018-06 [facility] CPAP CPAP 1-05 ity of 00:00: [place] [facility] Stage 3 Stage 3 Disease Active 2018-06 [facility] chronic chronic 1-05 ity of kidney kidney 00:00: [place] disease disease Medical [facility] IDDM IDDM Disease Active 2018-06 [facility] (insulin (insulin 1-05 [place] of dependent dependent [place] Med[place] mellitus) mellitus) Bran ch HELEN (acute HELEN (acute Disease Active 2018-06 U nivers kidney kidney 1-05 ity of injury) injury) 00:00: [place] [address] [facility] Morbid Morbid Disease Active 2018-06 [facility] obesity obesity 1-05 ity of with body with body 00:[place] mass index mass index 00 Me dical of of Branch 40.0-49.9 40.0-49.9 Allergies, Adverse Reactions, Alerts Allergy Allergy Status Severity Reaction(s) Onset Inactive Treating Comm ents Source Name Type Date Date Clinician NO KNOWN Drug Active Univers ALLERGIE Class ity of S [facility] Social History Social Habit Start Date Stop Date Quantity Comments Source Gender identity 2021-05-19 Identifies as male Christos serenity Jarrett 17:46:57 gender (finding) - Clinical Psychiatrist al Sexual orientation 2021-05-19 Heterosexual Yara Jarrett 17:46:57 (finding) - External History of tobacco Chews Tobacco Ricardo Jarrett use - External Exposure to Not sure Yanely thomas SARS-CoV-2 (event) Alcohol intake 2023-02-02 2023-02-02 Ex-drinker Yanely taylor 00:00:00 00:00:00 (finding) - External History of Social 2023-02-02 2023-02-02 Yanely Jarrett function 00:00:00 00:00:00 - External Tobacco use and 2022-12-16 2022-12-16 User of smokeless Ke sandor Jarrett exposure 00:00:00 00:00:00 tobacco - External Education - What is 2022-12-16 2022-12-16 High school Yara Jarrett the highest level 00:00:00 00:00:00 graduate - Exter nal of school you have completed or the highest degree you have received? Alcohol Comment 2022-12-16 2022-12-16 Quit many years Yara Jarrett 00:00:00 00:00:00 ago, 1997 - External Sex Ass[birth year] At [birth year] M Yanely mathias 00:00:00 00:00:00 - External Smoking Status Start Date Stop Date Source Never smoked tobacco Yanely [place] old - External Ex-smoker 2019-04-09 00:00:00 2019-04-09 00:00:00 [facility] Medications Ordered Filled Start Stop Current Ordering Indication Dosage Frequency Signature Comments Components Source Medication Medication Date Date Medication? Clinician (SIG) Name Name Carvedilol 2022-06 Yes [id number] 25mg Take 1 K elsey 25 MG oral 0-23 tablet (25 Sey bold Tablet 00:00: mg total) - 00 by mouth Externa in the l morning and 1 tablet (25 mg total) in the evening. Take with meals. Allopurinol 2022-06 Yes 100mg TAKE 1 Ricardo sey 100 MG oral 0-09 TABLET BY Sey bold Tablet 00:00: MOUTH - 00 DAILY Externa l Allopurinol 2022-06 Yes 100mg TAKE 1 Ricardo sey 100 MG oral 0-09 TABLET BY Sey bold Tablet 00:00: MOUTH - 00 DAILY Externa l GlipiZIDE Yes TAKE ONE Yara ey 10 MG oral 9-25 TABLET BY Seyb old TABLET SR 00:00: MOUTH - 24 HR 00 EVERY Externa MORNING l GlipiZIDE 0 Yes TAKE ONE Yara ey 10 MG oral 9-25 TABLET BY Seyb old TABLET SR 00:00: MOUTH - 24 HR 00 EVERY Externa MORNING l Linzess 145 2022-0 Yes [id number] TAKE ONE Yanely MCG oral 9-18 CAPSULE BY Seybo ld Capsule 00:00: MOUTH - 00 DAILY Externa l Linzess 145 2022-0 Yes [id number] TAKE ONE Yanely MCG oral 9-18 CAPSULE BY Seybo ld Capsule 00:00: MOUTH - 00 DAILY Externa l Benzonatate 2023-0 Yes [id number] 100mg [id number] Take 1 Yanely (Tessalon 02-08 54954 [id number] capsule Seybold Perles) 100 00:00: 3D (100 mg - MG oral 00 total) by Externa Capsule mouth 3 l times daily as needed for cough. Benzonatate 0 Yes [id number] 100mg Q.[id number] Take 1 Yanely (Tessalon 02-08 [id number] capsule Seybold Perlmeggan) 100 00:00: 3D (100 mg - MG oral 00 total) by Externa Capsule mouth 3 l times daily as needed for cough. METAMUCIL Yes 2{tbl} Take 2 Yara ey FIBER OR 8-31 tablets by Seybo ld 09:34: mouth 3 - 24 times Externa daily l Turmeric 0 Yes 1{capsu Take 1 Yara ey 500 MG oral 8-31 le} capsule by Se ybold Capsule 09:34: mouth - 24 daily Externa l Cranberry 0 Yes 1{capsu Take 1 Ricardo sey 450 MG oral 8-31 le} capsule by Se ybold Capsule 09:34: mouth 2 - 24 times Externa daily l Cholecalcif 0 Yes 1{capsu Take 1 K elsey lacey 8-31 le} capsule by Seybold (Vitamin 09:34: mouth - D3) 25 MCG 24 daily Externa (1000 UT) l oral Capsule Ferrous 0 Yes 325mg Take 1 Yanely Sulfate 8-31 tablet Seybold (Iron) 325 09:34: (325 mg - (65 Fe) MG 24 total) by Exte rna oral Tablet mouth l daily (with breakfast) . Coenzyme Yes 1{capsu Take 1 Yara ey Q10 (Co 8-31 le} capsule by Seybol d Q-10) 100 09:34: mouth - MG oral 24 daily. Externa Capsule l Pamela, 0 Yes 1{capsu Take 1 Kelse y Zingiber 8-31 le} capsule by Seybo ld officinalis 09:34: mouth - , (Pamela 24 daily. Externa Root) 550 l MG oral Capsule Ginkgo 0 Yes 1{capsu Take 1 Yanely Biloba 120 8-31 le} capsule by Sey bold MG oral 09:34: mouth - Capsule 24 daily. Externa l Magnesium 2022-0 Yes 1{capsu Take 1 Ricardo sey 500 MG oral 8-31 le} capsule by Se ybold Capsule 09:34: mouth - 24 daily. Externa l Magnesium 2022-0 Yes 296mL Take 296 Ricardo sey Citrate 8-31 mL by Seybold oral 09:34: mouth - Solution 24 once. Externa l Multiple 2022-0 Yes [id number] 1{tbl} Take 1 K elsey Vitamin 8-31 tablet by Seybold (MULTI 09:34: mouth - VITAMIN 24 nightly Externa MENS OR) l Sodium 0 Yes 650mg Take 1 Yanely Bicarbonate 8-31 tablet Seybol d 650 MG oral 09:34: (650 mg - Tablet 24 total) by Externa mouth 3 l times daily. METAMUCIL 0 Yes 2{tbl} Take 2 Yara ey FIBER OR 8-31 tablets by Seybo ld 09:34: mouth 3 - 24 times Externa daily l Turmeric 0 Yes 1{capsu Take 1 Yara ey 500 MG oral 8-31 le} capsule by Se ybold Capsule 09:34: mouth - 24 daily Externa l Cranberry 0 Yes 1{capsu Take 1 Ricardo sey 450 MG oral 8-31 le} capsule by Se ybold Capsule 09:34: mouth 2 - 24 times Externa daily l Cholecalcif 0 Yes 1{capsu Take 1 K elsey lacey 8-31 le} capsule by Seybold (Vitamin 09:34: mouth - D3) 25 MCG 24 daily Externa (1000 UT) l oral Capsule Ferrous 0 Yes 325mg Take 1 Yanely Sulfate 8-31 tablet Seybold (Iron) 325 09:34: (325 mg - (65 Fe) MG 24 total) by Exte rna oral Tablet mouth l daily (with breakfast) . Coenzyme 2022-0 Yes 1{capsu Take 1 Yara ey Q10 (Co 8-31 le} capsule by Seybol d Q-10) 100 09:34: mouth - MG oral 24 daily. Externa Capsule l Pamela, 2022-0 Yes 1{capsu Take 1 Kelse y Zingiber 8-31 le} capsule by Seybo ld officinalis 09:34: mouth - , (Pamela 24 daily. Externa Root) 550 l MG oral Capsule Ginkgo 0 Yes 1{capsu Take 1 Yanely Biloba 120 8-31 le} capsule by Sey bold MG oral 09:34: mouth - Capsule 24 daily. Externa l Magnesium 0 Yes 1{capsu Take 1 Ricardo sey 500 MG oral 8-31 le} capsule by Se ybold Capsule 09:34: mouth - 24 daily. Externa l Magnesium 0 Yes 296mL Take 296 Ricardo sey Citrate 8-31 mL by Seybold oral 09:34: mouth - Solution 24 once. Externa l Multiple 2022-0 Yes [id number] 1{tbl} Take 1 K elsey Vitamin 8-31 tablet by Seybold (MULTI 09:34: mouth - VITAMIN 24 nightly Externa MENS OR) l Sodium 0 Yes 650mg Take 1 Yanely Bicarbonate 8-31 tablet Seybol d 650 MG oral 09:34: (650 mg - Tablet 24 total) by Externa mouth 3 l times daily. METAMUCIL 0 Yes 2{tbl} Take 2 Yara ey FIBER OR 8-31 tablets by Seybo ld 09:34: mouth 3 - 24 times Externa daily l Turmeric 0 Yes 1{capsu Take 1 Yara ey 500 MG oral 8-31 le} capsule by Se ybold Capsule 09:34: mouth - 24 daily Externa l Cranberry 0 Yes 1{capsu Take 1 Ricardo sey 450 MG oral 8-31 le} capsule by Se ybold Capsule 09:34: mouth 2 - 24 times Externa daily l Cholecalcif 0 Yes 1{capsu Take 1 K elsey lacey 8-31 le} capsule by Seybold (Vitamin 09:34: mouth - D3) 25 MCG 24 daily Externa (1000 UT) l oral Capsule Ferrous 0 Yes 325mg Take 1 Yanely Sulfate 8-31 tablet Seybold (Iron) 325 09:34: (325 mg - (65 Fe) MG 24 total) by Exte rna oral Tablet mouth l daily (with breakfast) . Coenzyme 0 Yes 1{capsu Take 1 Yara ey Q10 (Co 8-31 le} capsule by Seybol d Q-10) 100 09:34: mouth - MG oral 24 daily. Externa Capsule l Pamela, 2022-0 Yes 1{capsu Take 1 Kelse y Zingiber 8-31 le} capsule by Seybo ld officinalis 09:34: mouth - , (Pamela 24 daily. Externa Root) 550 l MG oral Capsule Ginkgo 2022-0 Yes 1{capsu Take 1 Yanely Biloba 120 8-31 le} capsule by Sey bold MG oral 09:34: mouth - Capsule 24 daily. Externa l Magnesium 2022-0 Yes 1{capsu Take 1 Ricardo sey 500 MG oral 8-31 le} capsule by Se ybold Capsule 09:34: mouth - 24 daily. Externa l Magnesium 2022-0 Yes 296mL Take 296 Ricardo sey Citrate 8-31 mL by Seybold oral 09:34: mouth - Solution 24 once. Externa l Multiple 2022-0 Yes [id number] 1{tbl} Take 1 K elsey Vitamin 8-31 [...] 0.01 % otic 00 Externa Oil l predniSONE 2022-0 Yes 1 po tid Ricardo [...] 0.01 % otic 00 Externa Oil l predniSONE 2022-0 Yes 1 po tid Ricardo [...] 31 once. Externa l Multiple 2022-0 Yes [id number] 1{tbl} Take 1 K elsey Vitamin 8-28 tablet by Seybold (MULTI 08:55: mouth - VITAMIN 31 nightly Externa MENS OR) l Sodium 2022-0 Yes 650mg Take 1 Yanely Bicarbonate 8-28 tablet Seybol d 650 MG oral 08:55: (650 mg - Tablet 31 total) by Externa mouth 3 l times daily. METAMUCIL 2022-0 Yes 2{tbl} Take 2 Yraa ey FIBER OR 8-28 tablets by Seybo [...] - 31 times Externa daily l Cholecalcif 2022-0 Yes 1{capsu Take 1 K elsey lacey 8-28 le} capsule by Seybold (Vitamin 08:55: mouth - D3) 25 MCG 31 daily Externa (1000 UT) l oral Capsule Ferrous 2022-0 Yes 325mg Take 1 Yanely Sulfate 8-28 tablet Seybold (Iron) 325 08:55: (325 mg - (65 [...] MOUTH - 00 DAILY Externa l Magnesium 3-0 Yes 296mL Take 296 Ricardo sey Citrate 8-21 mL by Seybold oral 09:08: mouth - Solution 52 once. Externa l Multiple 3-0 Yes [id number] 1{tbl} Take 1 K elsey Vitamin 8-21 tablet by Seybold (MULTI 09:08: mouth - VITAMIN 52 nightly Externa MENS OR) l Sodium 3-0 Yes 650mg Take 1 Yanely Bicarbonate 8-21 tablet Seybol d 650 MG oral 09:08: (650 mg - Tablet 52 total) by Externa mouth 3 l times daily. METAMUCIL 2022-0 Yes 2{tbl} Take 2 Yara ey FIBER OR 8-21 tablets by Seybo ld 09:08: mouth 3 - 52 times Externa daily l Turmeric 2022-0 Yes 1{capsu Take 1 Yara ey 500 MG oral 8-21 le} capsule by Se ybold Capsule 09:08: mouth - 52 daily Externa l Cranberry 2022-0 Yes 1{capsu Take 1 Ricardo sey 450 MG oral 8-21 le} capsule by Se ybold Capsule 09:08: mouth 2 - 52 times Externa daily l Cholecalcif 3-0 Yes 1{capsu Take 1 K elsey lacey 8-21 le} capsule by ybold (Vitamin 09:08: mouth - D3) 25 MCG 52 daily Externa (1000 UT) l oral Capsule Ferrous 3-0 Yes 325mg Take 1 Yanely Sulfate 8-21 tablet ybold (Iron) 325 09:08: (325 mg - (65 Fe) MG 52 total) by Exte rna oral Tablet mouth l daily (with breakfast) . Carvedilol 2022-0 Yes [id number] TAKE ONE Yanely 25 MG oral 7-24 TABLET BY Seyb old Tablet 00:00: MOUTH - 00 TWICE A Externa DAY WITH l MEALS Carvedilol 2022-0 Yes [id number] TAKE ONE Yanely 25 MG oral 7-24 TABLET BY Seyb old Tablet 00:00: MOUTH - 00 TWICE A Externa DAY WITH l MEALS Carvedilol 2022-0 Yes [id number] TAKE ONE Yanely 25 MG oral 7-24 TABLET BY Seyb old Tablet 00:00: MOUTH - 00 TWICE A Externa DAY WITH l MEALS Carvedilol 2022-0 Yes [id number] TAKE ONE Yanely 25 MG oral 7-24 TABLET BY Seyb old Tablet 00:00: MOUTH - 00 TWICE A Externa DAY WITH l MEALS [place]-3 0 2022- No [id number] 1{capsu Take 1 Yanely Fatty Acids 7-14 07-14 le} capsule by Oziel macias (Fish Oil 09:19: 00:00 mouth - Concentrate 37 :00 daily Externa ) 300 MG l oral Capsule Ergocalcife 0 2022- No [id number] Take Ricardo sey rol 1.25 MG 7-14 -14 50,000 Seybo ld (33539 UT) 09:19: 00:00 units by - oral 37 :00 mouth once Externa Capsule a week l Ferrous 0 Yes 325mg Take 1 Yanely Sulfate 7-14 tablet Seybold (Iron) 325 09:07: (325 mg - (65 Fe) MG 04 total) by Exte rna oral Tablet mouth l daily (with breakfast) Cholecalcif 0 Yes 1{capsu Take 1 K elsey lacey 7-14 le} capsule by Seybold (Vitamin 09:06: mouth - D3) 25 MCG 49 daily Externa (1000 UT) l oral Capsule Cranberry 0 Yes 1{capsu Take 1 Ricardo sey 450 MG oral 7-14 le} capsule by Se ybold Capsule 09:06: mouth 2 - 16 times Externa daily l Turmeric 0 Yes 1{capsu Take 1 Yara ey 500 MG oral 7-14 le} capsule by Se ybold Capsule 09:05: mouth - 42 daily Externa l METAMUCIL 2022-0 Yes 2{tbl} Take 2 Yara ey FIBER OR 7-14 tablets by Seybo ld 09:04: mouth 3 - 41 times Externa daily l Amlodipine 2022-0 2022- No 5mg Take 1 Yara ey Besylate 7-14 07-14 tablet (5 Seybo ld (NORVASC) 5 08:48: 00:00 mg total) - MG oral 14 :00 by mouth 2 Clinical Psychiatrist a Tablet times l daily Take 2 tabs orally daily Insulin 2022-0 Yes [id number] 75 units Ke lsey Glargine 7-14 SQ nightly Seybo ld (Basaglar 00:00: - KwikPen) 00 Externa 100 UNIT/ML l subcutaneou s Solution Pen-injecto r Insulin 2022-0 Yes [id number] INJECT Yara ey Aspart 7-14 UNDER THE Seybold (NovoLOG) 00:00: SKIN 20 - 100 UNIT/ML 00 UNITS Externa injection THREE l Solution TIMES A DAY BEFORE MAJOR MEALS Ergocalcife 2022-0 Yes [id number] Take 1 Yanely rol 1.25 MG 7-14 capsule Seybo ld (41822 UT) 00:00: (50,000 - oral 00 units Externa Capsule total) by l mouth once a month Isosorbide 2022-0 Yes [id number] 30mg Take 1 Yanely Mononitrate 7-14 tablet (30 Se ybold CR 30 MG 00:00: mg total) - oral TABLET 00 by mouth Exte rna SR 24 HR daily l Furosemide 2022-0 Yes [id number] 60mg Take 1.5 Yanely 40 MG oral 7-14 tablets Seybol d Tablet 00:00: (60 mg - 00 total) by Externa mouth 2 l times daily [place]-3 2022-0 Yes [id number] 1{capsu Take 1 K elsey Fatty Acids 7-14 le} capsule by Se ybold (Fish Oil 00:00: mouth 2 - Concentrate 00 times Externa ) 300 MG daily l oral Capsule Insulin 2022-0 Yes [id number] 75 units Ke lsey Glargine 7-14 SQ nightly Seybo ld (Basaglar 00:00: - KwikPen) 00 Externa 100 UNIT/ML l subcutaneou s Solution Pen-injecto r Insulin 2022-0 Yes [id number] INJECT Yara ey Aspart 7-14 UNDER THE Seybold (NovoLOG) 00:00: SKIN 20 - 100 UNIT/ML 00 UNITS Externa injection THREE l Solution TIMES A DAY BEFORE MAJOR MEALS Ergocalcife 2022-0 Yes [id number] Take 1 Yanely rol 1.25 MG 7-14 capsule Seybo ld (55574 UT) 00:00: (50,000 - oral 00 units Externa Capsule total) by l mouth once a month Isosorbide 2023-0 Yes [id number] 30mg Take 1 Yanely Mononitrate 7-14 tablet (30 Se ybold CR 30 MG 00:00: mg total) - oral TABLET 00 by mouth Exte rna SR 24 HR daily l Furosemide 3-0 Yes [id number] 60mg Take 1.5 Yanely 40 MG oral 7-14 tablets Seybol d Tablet 00:00: (60 mg - 00 total) by Externa mouth 2 l times daily [place]-3 2022-0 Yes [id number] 1{capsu Take 1 K elsey Fatty Acids 7-14 le} capsule by Se ybemmanuel (Fish Oil 00:00: mouth 2 - Concentrate 00 times Externa ) 300 MG daily l oral Capsule Insulin 2022-0 Yes [id number] 75 units Ke lsey Glargine 7-14 SQ nightly Seybo ld (Basaglar 00:00: - KwikPen) 00 Externa 100 UNIT/ML l subcutaneou s Solution Pen-injecto r Insulin 2022-0 Yes [id number] INJECT Yara ey Aspart 7-14 UNDER THE Seybold (NovoLOG) 00:00: SKIN 20 - 100 UNIT/ML 00 UNITS Externa injection THREE l Solution TIMES A DAY BEFORE MAJOR MEALS Ergocalcife 2022-0 Yes [id number] Take 1 Yanely rol 1.25 MG 7-14 capsule Seybo ld (16089 UT) 00:00: (50,000 - oral 00 units Externa Capsule total) by l mouth once a month Isosorbide 3-0 Yes [id number] 30mg Take 1 Yanely Mononitrate 7-14 tablet (30 Se ybold CR 30 MG 00:00: mg total) - oral TABLET 00 by mouth Exte rna SR 24 HR daily l Furosemide 3-0 Yes [id number] 60mg Take 1.5 Yanely 40 MG oral 7-14 tablets Seybol d Tablet 00:00: (60 mg - 00 total) by Externa mouth 2 l times daily [place]-3 2022-0 Yes [id number] 1{capsu Take 1 K elsey Fatty Acids 7-14 le} capsule by Se ybold (Fish Oil 00:00: mouth 2 - Concentrate 00 times Externa ) 300 MG daily l oral Capsule Insulin 2022-0 Yes [id number] 75 units Ke lsey Glargine 7-14 SQ nightly Seybo ld (Basaglar 00:00: - KwikPen) 00 Externa 100 UNIT/ML l subcutaneou s Solution Pen-injecto r Insulin 2022-0 Yes [id number] INJECT Yara ey Aspart 7-14 UNDER THE Seybold (NovoLOG) 00:00: SKIN 20 - 100 UNIT/ML 00 UNITS Externa injection THREE l Solution TIMES A DAY BEFORE MAJOR MEALS Ergocalcife 2022-0 Yes [id number] Take 1 Yanely rol 1.25 MG 7-14 capsule Seybo ld (87647 UT) 00:00: (50,000 - oral 00 units Externa Capsule total) by l mouth once a month Isosorbide 2022-0 Yes [id number] 30mg Take 1 Yanely Mononitrate 7-14 tablet (30 Se ybold CR 30 MG 00:00: mg total) - oral TABLET 00 by mouth Exte rna SR 24 HR daily l Furosemide 2022-0 Yes [id number] 60mg Take 1.5 Yanely 40 MG oral 7-14 tablets Seybol d Tablet 00:00: (60 mg - 00 total) by Externa mouth 2 l times daily [place]-3 2022-0 Yes [id number] 1{capsu Take 1 K elsey Fatty Acids 7-14 le} capsule by Se ybold (Fish Oil 00:00: mouth 2 - Concentrate 00 times Externa ) 300 MG daily l oral Capsule Insulin 2022-0 Yes [id number] 75 units Ke lsey Glargine 7-14 SQ nightly Seybo ld (Basaglar 00:00: - KwikPen) 00 Externa 100 UNIT/ML l subcutaneou s Solution Pen-injecto r Insulin 2022-0 Yes [id number] INJECT Yara ey Aspart 7-14 UNDER THE Seybold (NovoLOG) 00:00: SKIN 20 - 100 UNIT/ML 00 UNITS Externa injection THREE l Solution TIMES A DAY BEFORE MAJOR MEALS Ergocalcife 2022-0 Yes [id number] Take 1 Yanely rol 1.25 MG 7-14 capsule Seybo ld (03960 UT) 00:00: (50,000 - oral 00 units Externa Capsule total) by l mouth once a month Isosorbide Yes [id number] 30mg Take 1 Yanely Mononitrate 7-14 tablet (30 Se ybold CR 30 MG 00:00: mg total) - oral TABLET 00 by mouth Exte rna SR 24 HR daily l Furosemide 0 Yes [id number] 60mg Take 1.5 Yanely 40 MG oral 7-14 tablets Seybol d Tablet 00:00: (60 mg - 00 total) by Externa mouth 2 l times daily [place]-3 Yes [id number] 1{capsu Take 1 K elsey Fatty Acids 7-14 le} capsule by Se ybold (Fish Oil 00:00: mouth 2 - Concentrate 00 times Externa ) 300 MG daily l oral Capsule Insulin Yes [id number] 75 units Ke lsey Glargine 7-14 SQ nightly Seybo ld (Basaglar 00:00: - KwikPen) 00 Externa 100 UNIT/ML l subcutaneou s Solution Pen-injecto r Insulin Yes [id number] INJECT Yara ey Aspart 7-14 UNDER THE Seybold (NovoLOG) 00:00: SKIN 20 - 100 UNIT/ML 00 UNITS Externa injection THREE l Solution TIMES A DAY BEFORE MAJOR MEALS Ergocalcife Yes [id number] Take 1 Yanely rol 1.25 MG 7-14 capsule Seybo ld (79216 UT) 00:00: (50,000 - oral 00 units Externa Capsule total) by l mouth once a month Isosorbide 0 Yes [id number] 30mg Take 1 Yanely Mononitrate 7-14 tablet (30 Se ybold CR 30 MG 00:00: mg total) - oral TABLET 00 by mouth Exte rna SR 24 HR daily l Furosemide 0 Yes [id number] 60mg Take 1.5 Yanely 40 MG oral 7-14 tablets Seybol d Tablet 00:00: (60 mg - 00 total) by Externa mouth 2 l times daily [place]-3 Yes [id number] 1{capsu Take 1 K elsey Fatty Acids 7-14 le} capsule by Se ybold (Fish Oil 00:00: mouth 2 - Concentrate 00 times Externa ) 300 MG daily l oral Capsule Zoster Vac 2022- No [id number] 50ug Inject 0.5 Yanely Recomb 12-16-21 mL (50 mcg Seybol d Adjuvanted 00:00: 00:00 total) - (Shingrix) 00 :00 into the Exter na 50 MCG/0.5 muscle l mL once for 1 Intramuscul dose ar Recon Suspension Azithromyci 2022- No [id number] Take 2 Yanely n 250 MG 12-16-21 tablets by Seyb old oral Tablet 00:00: 00:00 mouth on - 00 :00 day 1 then Externa 1 tablet l by mouth daily for 4 days thereafter . Azithromyci 2022-2022- No [id number] Take 2 Yanely n 250 MG 12-16-20 tablets by Seyb old oral Tablet 00:00: 04:59 mouth on - 00 :00 day 1 then Externa 1 tablet l by mouth daily for 4 days thereafter . Zoster Vac 2022- No [id number] 50ug Inject 0.5 Yanely Recomb 12-16-15 mL (50 mcg Seybol d Adjuvanted 00:00: 04:59 total) - (Shingrix) 00 :00 into the Exter na 50 MCG/0.5 muscle l mL once for 1 Intramuscul dose ar Recon Suspension Isosorbide 2022- No Yanely Mononitrate 12-1514 Seybold CR 30 MG 00:00: 00:00 - oral TABLET 00 :00 Externa SR 24 HR l Continuous Yes [id number] Check BS Yanely Blood Gluc 5- in the am Seyb old Transmit 00:00: fasting, - (Dexcom G5 00 before Externa Mobile meals and l Transmitter as needed. ) does not apply Misc Empaglifloz Yes [id number] 1 tablet Yanely in 5-23 po Q daily Seybold (Jardiance) 00:00: - 10 MG oral 00 Externa Tablet l Gabapentin Yes [id number] 100mg Take 1 Yanely 100 MG oral 5-23 capsule Seybo ld Capsule 00:00: (100 mg - 00 total) by Externa mouth 3 l times daily Insulin Pen Yes [id number] Takes K elsey Needle 31G 5-23 insulin Seybol d X 5 MM does 00:00: QID - not apply 00 Externa Misc l Levothyroxi 2022-0 Yes [id number] 50ug Take 1 Yanely ne Sodium 5-23 tablet (50 Seyb old 50 MCG oral 00:00: mcg total) - Tablet 00 by mouth Externa daily l Pravastatin 2022-0 Yes [id number] 40mg Take 1 Yanely Sodium 40 5-23 tablet (40 Seyb old MG oral 00:00: mg total) - Tablet 00 by mouth Externa nightly AT l BEDTIME Continuous Yes [id number] Check BS Yanely Blood Gluc 5-23 in the am Seyb old Transmit 00:00: fasting, - (Dexcom G5 00 before Externa Mobile meals and l Transmitter as needed. ) does not apply Misc Empaglifloz 2022-0 Yes [id number] 1 tablet Yanely in 5-23 po Q daily Seybold (Jardiance) 00:00: - 10 MG oral 00 Externa Tablet l Gabapentin 2022-0 Yes [id number] 100mg Take 1 Yanely 100 MG oral 5-23 capsule Seybo ld Capsule 00:00: (100 mg - 00 total) by Externa mouth 3 l times daily Insulin Pen 2022-0 Yes [id number] Takes K elsey Needle 31G 5-23 insulin Seybol d X 5 MM does 00:00: QID - not apply 00 Externa Misc l Levothyroxi 2022-0 Yes [id number] 50ug Take 1 Yanely ne Sodium 5-23 tablet (50 Seyb old 50 MCG oral 00:00: mcg total) - Tablet 00 by mouth Externa daily l Pravastatin 2022-0 Yes [id number] 40mg Take 1 Yanely Sodium 40 5-23 tablet (40 Seyb old MG oral 00:00: mg total) - Tablet 00 by mouth Externa nightly AT l BEDTIME Continuous Yes [id number] Check BS Yanely Blood Gluc 5-23 in the am Seyb old Transmit 00:00: fasting, - (Dexcom G5 00 before Externa Mobile meals and l Transmitter as needed. ) does not apply Misc Empaglifloz 2022-0 Yes [id number] 1 tablet Yanely in 5-23 po Q daily Seybold (Jardiance) 00:00: - 10 MG oral 00 Externa Tablet l Gabapentin 2022-0 Yes [id number] 100mg Take 1 Yanely 100 MG oral 5-23 capsule Seybo ld Capsule 00:00: (100 mg - 00 total) by Externa mouth 3 l times daily Insulin Pen 2022-0 Yes [id number] Takes K elsey Needle 31G 5-23 insulin Seybol d X 5 MM does 00:00: QID - not apply 00 Externa Misc l Levothyroxi 0 Yes [id number] 50ug Take 1 Yanely ne Sodium 5-23 tablet (50 Seyb old 50 MCG oral 00:00: mcg total) - Tablet 00 by mouth Externa daily l Pravastatin 0 Yes [id number] 40mg Take 1 Yanely Sodium 40 5-23 tablet (40 Seyb old MG oral 00:00: mg total) - Tablet 00 by mouth Externa nightly AT l BEDTIME Continuous Yes [id number] Check BS Yanely Blood Gluc 5-23 in the am Seyb old Transmit 00:00: fasting, - (Dexcom G5 00 before Externa Mobile meals and l Transmitter as needed. ) does not apply Misc Empaglifloz 2022-0 Yes [id number] 1 tablet Yanely in 5-23 po Q daily Seybold (Jardiance) 00:00: - 10 MG oral 00 Externa Tablet l Gabapentin 2022-0 Yes [id number] 100mg Take 1 Yanely 100 MG oral 5-23 capsule Seybo ld Capsule 00:00: (100 mg - 00 total) by Externa mouth 3 l times daily Insulin Pen 0 Yes [id number] Takes K elsey Needle 31G 5-23 insulin Seybol d X 5 MM does 00:00: QID - not apply 00 Externa Misc l Levothyroxi 2022-0 Yes [id number] 50ug Take 1 Yanely ne Sodium 5-23 tablet (50 Seyb old 50 MCG oral 00:00: mcg total) - Tablet 00 by mouth Externa daily l Pravastatin 2022-0 Yes [id number] 40mg Take 1 Yanely Sodium 40 5-23 tablet (40 Seyb old MG oral 00:00: mg total) - Tablet 00 by mouth Externa nightly AT l BEDTIME Continuous Yes [id number] Check BS Yanely Blood Gluc 5-23 in the am Seyb old Transmit 00:00: fasting, - (Dexcom G5 00 before Externa Mobile meals and l Transmitter as needed. ) does not apply Misc Empaglifloz 2022-0 Yes [id number] 1 tablet Yanely in 5-23 po Q daily Seybold (Jardiance) 00:00: - 10 MG oral 00 Externa Tablet l Gabapentin 2022-0 Yes [id number] 100mg Take 1 Yanely 100 MG oral 5-23 capsule Seybo ld Capsule 00:00: (100 mg - 00 total) by Externa mouth 3 l times daily Insulin Pen 2022-0 Yes [id number] Takes K elsey Needle 31G 5-23 insulin Seybol d X 5 MM does 00:00: QID - not apply 00 Externa Misc l Levothyroxi 0 Yes [id number] 50ug Take 1 Yanely ne Sodium 5-23 tablet (50 Seyb old 50 MCG oral 00:00: mcg total) - Tablet 00 by mouth Externa daily l Pravastatin 0 Yes [id number] 40mg Take 1 Yanely Sodium 40 5-23 tablet (40 Seyb old MG oral 00:00: mg total) - Tablet 00 by mouth Externa nightly AT l BEDTIME Continuous Yes [id number] Check BS Yanely Blood Gluc 5-23 in the am Seyb old Transmit 00:00: fasting, - (Dexcom G5 00 before Externa Mobile meals and l Transmitter as needed. ) does not apply Misc Empaglifloz 2022-0 Yes [id number] 1 tablet Yanely in 5-23 po Q daily Seybold (Jardiance) 00:00: - 10 MG oral 00 Externa Tablet l Gabapentin 2022-0 Yes [id number] 100mg Take 1 Yanely 100 MG oral 5-23 capsule Seybo ld Capsule 00:00: (100 mg - 00 total) by Externa mouth 3 l times daily Insulin Pen 2022-0 Yes [id number] Takes K elsey Needle 31G 5-23 insulin Seybol d X 5 MM does 00:00: QID - not apply 00 Externa Misc l Levothyroxi 2022-0 Yes [id number] 50ug Take 1 Yanely ne Sodium 5-23 tablet (50 Seyb old 50 MCG oral 00:00: mcg total) - Tablet 00 by mouth Externa daily l Pravastatin 2022-0 Yes [id number] 40mg Take 1 Yanely Sodium 40 - tablet (40 Seyb old MG oral 00:00: mg total) - Tablet 00 by mouth Externa nightly AT l BEDTIME Insulin 2022-0 2023- No [id number] INJECT Ricardo sey Aspart 10-25 07-14 UNDER THE Seybold (NovoLOG) 00:00: 00:00 SKIN 15 - 100 UNIT/ML 00 :00 UNITS Externa injection THREE l Solution TIMES A DAY BEFORE MAJOR MEALS Insulin 2022-0 2023- No [id number] 85 units K elsey Glargine 10-25 07-14 SQ nightly Seyb old (Basaglar 00:00: 00:00 - KwikPen) 00 :00 Externa 100 UNIT/ML l subcutaneou s Solution Pen-injecto r Carvedilol 0 Yes [id number] TAKE ONE Yanely 25 MG oral 4-14 TABLET BY Seyb old Tablet 00:00: MOUTH - 00 TWICE A Externa DAY WITH l MEALS Allopurinol 0 2022- No [id number] TAKE ONE Yanely 100 MG oral 3-06 07-14 TABLET BY Se ybold Tablet 00:00: 00:00 MOUTH - 00 :00 DAILY Externa l Magnesium 0 Yes 296mL Take 296 Ricardo sey Citrate 2-16 mL by Seybold oral 14:09: mouth once - Solution 58 Externa l [place]-3 2022-0 Yes [id number] 1{capsu Take 1 K elsey Fatty Acids 2-16 le} capsule by Se ybold (Fish Oil 14:09: mouth - Concentrate 58 daily Externa ) 300 MG l oral Capsule Multiple 2022-0 Yes [id number] 1{tbl} Take 1 K elsey Vitamin 2-16 tablet by Seybold (MULTI 14:09: mouth - VITAMIN 58 nightly Externa MENS OR) l Ergocalcife 2022-0 Yes [id number] Take Yara ey rol 1.25 MG 2-16 50,000 Seybol d ([id number] UT) 14:09: units by - oral 58 mouth once Externa Capsule a week l Sodium 2022-0 Yes 650mg Take 650 Yanely Bicarbonate 2-16 mg by Seybold 650 MG oral 14:09: mouth 3 - Tablet 58 times Externa daily l Magnesium Yes 296mL Take 296 Ricardo sey Citrate 2-16 mL by Seybold oral 14:09: mouth once - Solution 58 Externa l Multiple 2022-0 Yes [id number] 1{tbl} Take 1 K elsey Vitamin 2-16 tablet by Seybold (MULTI 14:09: mouth - VITAMIN 58 nightly Externa MENS OR) l Sodium 2022- Yes 650mg Take 650 Yanely Bicarbonate 2-16 mg by Seybold 650 MG oral 14:09: mouth 3 - Tablet 58 times Externa daily l Continuous Yes [id number] Check BS Yanely Blood Gluc 2-16 in the am Seyb old Public Address Technician 00:00: fasting, - (Dexcom G5 00 before Externa Public Address Technician meals and l Kit) does as needed. not apply Device Continuous Yes [id number] Check BS Yanely Blood Gluc 2-16 in the am Seyb old Public Address Technician 00:00: fasting, - (Dexcom G5 00 before Externa Public Address Technician meals and l Kit) does as needed. not apply Device Continuous Yes [id number] Check BS Yanely Blood Gluc 2-16 in the am Seyb old Public Address Technician 00:00: fasting, - (Dexcom G5 00 before Externa Public Address Technician meals and l Kit) does as needed. not apply Device Continuous 0 Yes [id number] Check BS Yanely Blood Gluc 2-16 in the am Seyb old Public Address Technician 00:00: fasting, - (Dexcom G5 00 before Externa Public Address Technician meals and l Kit) does as needed. not apply Device Continuous Yes [id number] Check BS Yanely Blood Gluc 2-16 in the am Seyb old Transmit 00:00: fasting, - (Dexcom G5 00 before Externa Mobile meals and l Transmitter as needed. ) does not apply Misc Continuous 0 Yes [id number] Check BS Yanely Blood Gluc 2-16 in the am Seyb old Public Address Technician 00:00: fasting, - (Dexcom G5 00 before Externa Public Address Technician meals and l Kit) does as needed. not apply Device Continuous 0 Yes [id number] Check BS Yanely Blood Gluc 2-16 in the am Seyb old Public Address Technician 00:00: fasting, - (Dexcom G5 00 before Externa Public Address Technician meals and l Kit) does as needed. not apply Device Continuous Yes [id number] Check BS Yanely Blood Gluc 2-16 in the am Seyb old Public Address Technician 00:00: fasting, - (Dexcom G5 00 before Externa Public Address Technician meals and l Kit) does as needed. not apply Device Azithromyci 2022- No [id number] Take 2 Yanely n 250 MG 2-16 [...] monitoring Strip with [place]alle system Levothyroxi Yes [id number] 50ug Take 1 Yanely ne Sodium 1-17 tablet (50 Seyb old 50 MCG oral 00:00: mcg total) - Tablet 00 by mouth Externa daily l Magnesium 2021-06 Yes 296mL Take 296 Ricardo sey Citrate 2-12 mL by Seybold oral 10:45: mouth once - Solution 13 Externa l [place]-3 2021-06 Yes [id number] 1{capsu Take 1 K elsey Fatty Acids 2-12 le} capsule by Se ybold (Fish Oil 10:45: mouth - Concentrate 13 daily Externa ) 300 MG l oral Capsule Multiple 2021-06 Yes [id number] 1{tbl} Take 1 K elsey Vitamin 2-12 tablet by Seybold (MULTI 10:45: mouth - VITAMIN 13 nightly Externa MENS OR) l Ergocalcife 2021-06 Yes [id number] Take Yara ey rol 1.25 MG 2-12 50,000 Seybol d ([id number] UT) 10:45: units by - oral 13 [...] :00 daily Externa l Insulin 2021-06 Yes [id number] 75 units Ke lsey Glargine 2-12 SQ nightly Seybo ld (Basaglar 00:00: - KwikPen) 00 Externa 100 UNIT/ML l subcutaneou s Solution Pen-injecto r Insulin Pen 2021-06 Yes [id number] Takes K elsey Needle 31G 2-12 insulin Seybol d X 5 MM does 00:00: QID - not apply 00 Externa Misc l Empaglifloz 2021-06 Yes [id number] 1 tablet Yanely in 2-12 po Q daily Seybold (Jardiance) 00:00: - 10 MG oral 00 Externa Tablet l Insulin 2021-06 Yes [id number] 75 units Ke lsey Glargine 2-12 SQ nightly Seybo ld (Basaglar 00:00: - KwikPen) 00 Externa 100 UNIT/ML l subcutaneou s Solution Pen-injecto r Insulin Pen 2021-06 Yes [id number] Takes K elsey Needle 31G 2-12 insulin Seybol d X 5 MM does 00:00: QID - not apply 00 Externa Misc l Empaglifloz 2021-06 Yes [id number] 1 tablet Yanely in 2-12 po Q daily Seybold (Jardiance) 00:00: - 10 MG oral 00 Externa Tablet l Clonidine 2021-06 Yes [id number] .2mg Take 1 Ke lsey (CATAPRES) 1-22 tablet Seybold 0.2 MG oral 00:00: (0.2 mg - Tablet 00 total) by Externa mouth 3 l times daily. Clonidine 2021-06 Yes [id number] .2mg Take 1 Ke lsey (CATAPRES) 1-22 tablet Seybold 0.2 MG oral 00:00: (0.2 mg - Tablet 00 total) by Externa mouth 3 l times daily. Clonidine 2021-06 Yes [id number] .2mg Take 1 Ke lsey (CATAPRES) 1-22 tablet Seybold 0.2 MG oral 00:00: (0.2 mg - Tablet 00 total) by Externa mouth 3 l times daily. Clonidine 2021-06 Yes [id number] Yara ey (CATAPRES) 1-22 Seybold 0.2 MG oral 00:00: - Tablet 00 Externa l Furosemide 2021-06 Yes [id number] Ricardo sey 80 MG oral 1-22 Seybold Tablet 00:00: - 00 Externa l Clonidine 2021-06 Yes [id number] .2mg Take 0.2 Yanely (CATAPRES) 1-22 mg by Seybold 0.2 MG oral 00:00: mouth 3 - Tablet 00 times Externa daily l Clonidine 2021-06 Yes [id number] .2mg Take 0.2 Yanely (CATAPRES) 1-22 mg by Seybold 0.2 MG oral 00:00: mouth 3 - Tablet 00 times Externa daily l Clonidine 2021-06 Yes [id number] .2mg Take 1 Ke lsey (CATAPRES) 1-22 tablet Seybold 0.2 MG oral 00:00: (0.2 mg - Tablet 00 total) by Externa mouth 3 l times daily. Clonidine 2021-06 Yes [id number] .2mg Take 1 Ke lsey (CATAPRES) 1-22 tablet Seybold 0.2 MG oral 00:00: (0.2 mg - Tablet 00 total) by Externa mouth 3 l times daily. Furosemide 2021-06- No [id number] Ke lsey 80 MG oral -22 02-16 Seybold Tablet 00:00: 00:00 - 00 :00 Externa l Bevacizumab 2021-06- No [id number] 1.25mg Yanely (AVASTIN) 06-22 Seybold 100 mg/4 mL 15:15: 15:32 - - Physician 00 :00 Externa Administere l d (J9035) Bevacizumab 2021-06- No [id number] 1.25mg 1.25 mg, Yanely (AVASTIN) -18 18 Physician Seyb old 100 mg/4 mL 15:15: 15:32 Administer - - Physician 00 :00 ed, ONCE, Ext winifred Administere 1 dose, On l d (J9035) Mon04/22/22 at 0915 Magnesium 2021-06 Yes 296mL Take 296 Ricardo sey Citrate 1-18 mL by Seybold oral 09:04: mouth once - Solution 34 Externa l Fenugreek 2021-06 Yes 2{capsu Take 2 Ricardo sey 500 MG oral 1-18 le} capsules Seyb old Capsule 09:04: by mouth 2 - 34 times Externa daily l [place]-3 2021-06 Yes [id number] 1{capsu Take 1 K elsey Fatty Acids 1-18 le} capsule by Se ybold (Fish Oil 09:04: mouth - Concentrate 34 daily Externa ) 300 MG l oral Capsule Multiple 2021-06 Yes [id number] 1{tbl} Take 1 K elsey Vitamin 1-18 tablet by Seybold (MULTI 09:04: mouth - VITAMIN 34 nightly Externa MENS OR) l Ergocalcife 2021-06 Yes [id number] Take Yara ey rol 1.25 MG 1-18 50,000 Seybol d (47027 UT) 09:04: units by - oral 34 [...] times Externa daily l Carvedilol 2021-06 Yes [id number] TAKE ONE Yanely 25 MG oral 0-28 TABLET BY Seyb old Tablet 00:00: MOUTH - 00 TWICE A Externa DAY WITH l MEALS Carvedilol 2021-06 Yes [id number] TAKE ONE Yanely 25 MG oral 0-28 TABLET BY Seyb old Tablet 00:00: MOUTH - 00 TWICE A Externa DAY WITH l MEALS Carvedilol 2021-06 Yes [id number] TAKE ONE Yanely 25 MG oral 0-28 [...] DAILY BEFOFE MAJOR MEALS Bevacizumab 2021-06- No [id number] 1.25mg Yanely (AVASTIN) 0-07 10-07 Seybold 100 mg/4 mL 14:30: 14:20 - - Physician 00 :00 Externa Administere l d ([id number]) Bevacizumab 2021-06- No [id number] 1.25mg 1.25 mg, Yanely (AVASTIN) 0-07 - Physician Seyb old 100 mg/4 mL 14:30: [...] sey 500 MG oral 0-07 le} capsules Seyb old Capsule 08:50: by mouth 2 - 12 times Externa daily l [place]-3 2021-06 Yes [id number] 1{capsu Take 1 K elsey Fatty Acids 0-07 le} capsule by Se mathias (Fish Oil 08:50: mouth - Concentrate 12 daily Externa ) 300 MG l oral Capsule Multiple 2021-06 Yes [id number] 1{tbl} Take 1 K elsey Vitamin 0-07 tablet by Luiza (MULTI 08:50: mouth - VITAMIN 12 nightly Externa MENS OR) l Ergocalcife 2021-06 Yes [id number] Take Yara ey rol 1.25 MG 0-07 50,000 Seybol d ([id number] UT) 08:50: units by - oral 12 [...] 2 - 32 times Externa daily l [place]-3 2021-06 Yes [id number] 1{capsu Take 1 K elsey Fatty Acids 0-06 le} capsule by ybold (Fish Oil 08:37: mouth - Concentrate 32 daily Externa ) 300 MG l oral Capsule Multiple 2021-06 Yes [id number] 1{tbl} Take 1 K elsey Vitamin 0-06 tablet by Zacheryold (MULTI 08:37: mouth - VITAMIN 32 nightly Externa MENS OR) l Ergocalcife 2021-06 Yes [id number] Take Yara ey rol 1.25 MG 0-06 50,000 Seybol d (72589 UT) 08:37: units by - oral 32 [...] 32 times Externa daily l Linzess 145 Yes [id number] TAKE ONE Yanely MCG oral 9-19 CAPSULE BY Seybo ld Capsule 00:00: MOUTH - 00 DAILY Externa l Linzess 145 2021-0 Yes [id number] TAKE ONE Yanely MCG oral 9-19 CAPSULE BY Seybo ld Capsule 00:00: MOUTH - 00 DAILY Externa l Linzess 145 2021-0 Yes [id number] TAKE ONE Yanely MCG oral 9-19 CAPSULE BY Seybo ld Capsule 00:00: MOUTH - 00 DAILY Externa l Linzess 145 2021-0 Yes [id number] TAKE ONE Yanely MCG oral 9-19 CAPSULE BY Seybo ld Capsule 00:00: MOUTH - 00 DAILY Externa l Linzess 145 2021-0 Yes [id number] TAKE ONE Yanely MCG oral 9-19 CAPSULE BY Seybo ld Capsule 00:00: MOUTH - 00 DAILY Externa l Linzess 145 2021-0 Yes [id number] TAKE ONE Yanely MCG oral 9-19 CAPSULE BY Seybo ld Capsule 00:00: MOUTH - 00 DAILY Externa l Linzess 145 2021-0 Yes [id number] TAKE ONE Yanely MCG oral 9-19 CAPSULE BY Seybo ld Capsule 00:00: MOUTH - 00 DAILY Externa l Linzess 145 2021-0 Yes [id number] TAKE ONE Yanely MCG oral 9-19 CAPSULE BY Seybo ld Capsule 00:00: MOUTH - 00 DAILY Externa l Linzess 145 2021-0 Yes [id number] TAKE ONE Yanely MCG oral 9-19 CAPSULE [...] % times l ophthalmic daily Solution Gatifloxaci 2-0 Yes 1[drp] Place 1 K elsey n (Zymaxid) 8-23 drop into Sey bold 0.5 % 00:00: the left - ophthalmic 00 eye 4 Externa Solution times l daily prednisoLON 2022-0 Yes 1[drp] Place 1 K elsey E [...] Solution Gatifloxaci Yes 1[drp] Place 1 K serenity n (Zymaxid) 8-23 drop into Sey bold 0.5 % 00:00: the left - ophthalmic 00 eye 4 Externa Solution times l daily prednisoLON 2021-0 2022- No 1[drp] Place 1 Yanely E Acetate 1 8- 12-12 drop into Se ybold % 00:00: 00:00 the left - ophthalmic 00 :00 eye 4 Externa Suspension times l daily KETOROLAC 2021-0 202- No 1[drp] Place 1 Ke amilcarey TROMETHAMIN 8- 12-12 drop into Se ybold E, OPHTH, 00:00: 00:00 the left - (Acular) 00 :00 eye 4 Externa 0.5 % times l ophthalmic daily Solution Gatifloxaci 2021-0 2022- No 1[drp] Place 1 Yanely n (Zymaxid) 8 12-12 drop into Se ybold 0.5 % 00:00: 00:00 the left - ophthalmic 00 :00 eye 4 Externa Solution times l daily Empaglifloz Yes [id number] 1 tablet Yanely in 8-22 po Q daily Seybold (Jardiance) 00:00: - 10 MG oral 00 Externa Tablet l Gabapentin Yes [id number] 100mg Take 1 Yanely 100 MG oral 8-22 capsule Seybo ld Capsule 00:00: (100 mg - 00 total) by Externa mouth 3 l times daily Insulin Yes [id number] 85 units Ke lsey Glargine 8-22 SQ nightly Seybo ld (Basaglar 00:00: - KwikPen) 00 Externa 100 UNIT/ML l subcutaneou s Solution Pen-injecto r Insulin Pen Yes [id number] Takes K serenity Needle 31G 8-22 insulin Seybol d X 5 MM does 00:00: QID - not apply 00 Externa Misc l Pravastatin Yes [id number] 40mg Take 1 Yanely Sodium 40 8-22 tablet (40 Seyb old MG oral 00:00: mg total) - Tablet 00 by mouth Externa nightly AT l BEDTIME Empaglifloz 0 Yes [id number] 1 tablet Yanely in 8-22 po Q daily Seybold (Jardiance) 00:00: - 10 MG oral 00 Externa Tablet l Gabapentin Yes [id number] 100mg Take 1 Yanely 100 MG oral 8-22 capsule Seybo ld Capsule 00:00: (100 mg - 00 total) by Externa mouth 3 l times daily Insulin Yes [id number] 85 units Ke lsey Glargine 8-22 SQ nightly Seybo ld (Basaglar 00:00: - KwikPen) 00 Externa 100 UNIT/ML l subcutaneou s Solution Pen-injecto r Insulin Pen Yes [id number] Takes K elsey Needle 31G 8-22 insulin Seybol d X 5 MM does 00:00: QID - not apply 00 Externa Misc l Pravastatin Yes [id number] 40mg Take 1 Yanely Sodium 40 8-22 tablet (40 Seyb old MG oral 00:00: mg total) - Tablet 00 by mouth Externa nightly AT l BEDTIME Empaglifloz 0 Yes [id number] 1 tablet Yanely in 8-22 po Q daily Seybold (Jardiance) 00:00: - 10 MG oral 00 Externa Tablet l Gabapentin Yes [id number] 100mg Take 1 Yanely 100 MG oral 8-22 capsule Seybo ld Capsule 00:00: (100 mg - 00 total) by Externa mouth 3 l times daily Insulin Yes [id number] 85 units Ke lsey Glargine 8-22 SQ nightly Seybo ld (Basaglar 00:00: - KwikPen) 00 Externa 100 UNIT/ML l subcutaneou s Solution Pen-injecto r Insulin Pen Yes [id number] Takes K elsey Needle 31G 8-22 insulin Seybol d X 5 MM does 00:00: QID - not apply 00 Externa Misc l Pravastatin Yes [id number] 40mg Take 1 Yanely Sodium 40 8-22 tablet (40 Seyb old MG oral 00:00: mg total) - Tablet 00 by mouth Externa nightly AT l BEDTIME Gabapentin Yes [id number] 100mg Take 1 Yanely 100 MG oral 8-22 capsule Seybo ld Capsule 00:00: (100 mg - 00 total) by Externa mouth 3 l times daily Pravastatin Yes [id number] 40mg Take 1 Yanely Sodium 40 8-22 tablet (40 Seyb old MG oral 00:00: mg total) - Tablet 00 by mouth Externa nightly AT l BEDTIME Gabapentin Yes [id number] 100mg Take 1 Yanely 100 MG oral 8-22 capsule Seybo ld Capsule 00:00: (100 mg - 00 total) by Externa mouth 3 l times daily Pravastatin Yes [id number] 40mg Take 1 Yanely Sodium 40 8-22 tablet (40 Seyb old MG oral 00:00: mg total) - Tablet 00 by mouth Externa nightly AT l BEDTIME Empaglifloz 2021- No [id number] 1 tablet Yanely in 01-24 12-12 po Q daily Seybold (Jardiance) 00:00: 00:00 - 10 MG oral 00 :00 Externa Tablet l Insulin 2021- No [id number] 85 units K elsey Glargine 01-24 12-12 SQ nightly Seyb old (Basaglar 00:00: 00:00 - BooikPen) 00 :00 Externa 100 UNIT/ML l subcutaneou s Solution Pen-injecto r Insulin Pen 2- No [id number] Takes Yanely Needle 31G 01-24 12-12 insulin Seybo ld X 5 MM does 00:00: 00:00 QID - not apply 00 :00 Externa Misc l Allopurinol Yes [id number] TAKE ONE Yanely 100 MG oral 7-27 TABLET BY Sey bold Tablet 00:00: MOUTH - 00 DAILY Externa l Carvedilol Yes TAKE ONE Ricardo sey 25 MG oral 7-27 TABLET BY Seyb old Tablet 00:00: MOUTH - 00 TWICE A Externa DAY WITH A l MEAL GlipiZIDE 0 Yes TAKE ONE Yara ey 10 MG oral 7-27 TABLET BY Seyb old TABLET SR 00:00: MOUTH - 24 HR 00 EVERY Externa MORNING l Allopurinol 2021-0 Yes [id number] TAKE ONE Yanely 100 MG oral 7-27 TABLET BY Sey bold Tablet 00:00: MOUTH - 00 DAILY Externa l Carvedilol 2021-0 Yes TAKE ONE Ricardo sey 25 MG oral 7-27 TABLET BY Seyb old Tablet 00:00: MOUTH - 00 TWICE A Externa DAY WITH A l MEAL GlipiZIDE Yes TAKE ONE Yara ey 10 MG oral 7-27 TABLET BY Seyb old TABLET SR 00:00: MOUTH - 24 HR 00 EVERY Externa MORNING l Allopurinol 2021-0 Yes [id number] TAKE ONE Yanely 100 MG oral 7-27 TABLET BY Sey bold Tablet 00:00: MOUTH - 00 DAILY Externa l GlipiZIDE 2021-0 Yes TAKE ONE Yara ey 10 MG oral 7-27 TABLET BY Seyb old TABLET SR 00:00: MOUTH - 24 HR 00 EVERY Externa MORNING l Allopurinol 2021-0 Yes [id number] TAKE ONE Yanely 100 MG oral 7-27 TABLET BY Sey bold Tablet 00:00: MOUTH - 00 DAILY Externa l GlipiZIDE 2021-0 Yes TAKE ONE Yara ey 10 MG oral 7-27 TABLET BY Seyb old TABLET SR 00:00: MOUTH - 24 HR 00 EVERY Externa MORNING l Allopurinol 2021-0 Yes [id number] TAKE ONE Yanely 100 MG oral 7-27 TABLET BY Sey bold Tablet 00:00: MOUTH - 00 DAILY Externa l GlipiZIDE 2021-0 Yes TAKE ONE Yara ey 10 MG oral 7-27 TABLET BY Seyb old TABLET SR 00:00: MOUTH - 24 HR 00 EVERY Externa MORNING l GlipiZIDE 2021-0 Yes TAKE ONE Yara ey 10 MG oral 7-27 TABLET BY Seyb old TABLET SR 00:00: MOUTH - 24 HR 00 EVERY Externa MORNING l GlipiZIDE 2021-0 Yes TAKE ONE Yara ey 10 MG oral 7-27 TABLET BY Seyb old TABLET SR 00:00: MOUTH - 24 HR 00 EVERY Externa MORNING l GlipiZIDE 2021-0 Yes TAKE ONE Yara [...] K elsey -FISH 5-27 le} capsule by TVPagestew OIL-EPA-DHA 07:59: mouth OR 40 daily Aspirin 81 Yes 1{capsu Take 1 Ke lsey MG oral 5-27 le} capsule by Zacheryol d Capsule 07:59: mouth 40 daily Magnesium Yes 296mL Take 296 Ricardo sey Citrate 5-27 mL by Seybold oral 07:59: mouth once Solution 40 Fenugreek Yes 2{capsu Take 2 Ricardo sey 500 MG oral 5-27 le} capsules Seyb old Capsule 07:59: by mouth 2 40 times daily [place]-3 Yes [id number] 1{capsu Take 1 K elsey Fatty Acids 5-27 le} capsule by Se mathais (Fish Oil 07:59: mouth Concentrate 40 daily ) 300 MG oral Capsule Multiple Yes [id number] 1{tbl} Take 1 K elsey Vitamin 5-27 [...] 00 eye 4 Solution times daily Bevacizumab 0 2022- No [id number] 1.25mg Ynaely (AVASTIN) 09-24 Seybold 100 mg/4 mL 14:15: 14:11 - Physician 00 :00 Administere d (J9035) Bevacizumab 2021- No [id number] 1.25mg 1.25 mg, Yanely (AVASTIN) 09-24 Physician Seyb old 100 mg/4 mL 14:15: 14:11 Administer - Physician 00 :00 ed, ONCE, Administere 1 dose, On d (J9035) Mon09/24/21 at 0915 Potassium Yes 1{tbl} Take 1 [...] 08:21: by mouth 2 31 times daily [place]-3 Yes [id number] 1{capsu Take 1 K elsey Fatty Acids 4-22 le} capsule by Se ybold (Fish Oil 08:21: mouth Concentrate 31 daily ) 300 MG oral Capsule Multiple Yes [id number] 1{tbl} Take 1 K elsey Vitamin 4-22 tablet by Seybold (MULTI 08:21: mouth VITAMIN 31 nightly MENS OR) Potassium Yes 1{tbl} Take 1 Yara ey 99 MG oral 3-23 tablet by Seyb old Tablet 08:04: mouth 08 daily GLUCOSAMINE Yes 1{capsu Take 1 K elsey -FISH 3-23 le} capsule by Seybold OIL-EPA-DHA 08:04: mouth OR 08 daily Aspirin 81 Yes 1{capsu Take 1 Ke lsey MG oral 3-23 le} capsule by Seybol d Capsule 08:04: mouth 08 daily Magnesium 2-0 Yes 296mL Take 296 Ricardo sey Citrate 3-23 mL by Seybold oral 08:04: mouth once Solution 08 Fenugreek 2021-0 Yes 2{capsu Take 2 Ricardo sey 500 MG oral 3-23 le} capsules Seyb old Capsule 08:04: by mouth 2 08 times daily [place]-3 2-0 Yes [id number] 1{capsu Take 1 K elsey Fatty Acids 3-23 le} capsule by Se ybold (Fish Oil 08:04: mouth Concentrate 08 daily ) 300 MG oral Capsule Multiple 2021-0 Yes [id number] 1{tbl} Take 1 K elsey Vitamin 3-23 tablet by Seybold (MULTI 08:04: mouth VITAMIN 08 nightly MENS OR) Azithromyci 2021-0 Yes [id number] Take 2 Yanely n 250 MG 3-23 tablets by Seybo ld oral Tablet 00:00: mouth on day 1 then 1 tablet by mouth daily for 4 days thereafter . Azithromyci 2021-0 Yes [id number] Take 2 Yanely n 250 MG 3-23 tablets by Seybo ld oral Tablet 00:00: mouth on day 1 then 1 tablet by mouth daily for 4 days thereafter . Azithromyci 2021-0 Yes [id number] Take 2 Yanely n 250 MG 3-23 tablets by Seybo ld oral Tablet 00:00: mouth on day 1 then 1 tablet by mouth daily for 4 days thereafter . cloNIDine 2021-0 Yes [id number] .1mg Take 1 Un rafael 0.1 mg 3-16 tablet by ity of tablet 00:00: mouth 2 (two) Medical times Branch daily. cloNIDine 2-0 Yes [id number] .1mg Take 1 Un rafael 0.1 mg 3-16 tablet by ity of tablet 00:00: mouth 2 (two) Medical times Branch daily. cloNIDine 2022-0 Yes [id number] .1mg Take 1 Un rafael 0.1 mg 3-16 tablet by ity of tablet 00:00: mouth 2 (two) Medical times Branch daily. cloNIDine 2-0 Yes [id number] .1mg Take 1 Un rafael 0.1 mg 3-16 tablet by ity of tablet 00:00: mouth 2 (two) Medical times Branch daily. cloNIDine Yes [id number] .1mg Take 1 Un rafael 0.1 mg 3-16 tablet by ity of tablet 00:00: mouth 2 [place] [address] (two) Medical times Branch daily. Bevacizumab 2021- No [id number] 1.25mg Yanely (AVASTIN) 08-1311 Seybold 100 mg/4 mL 16:00: 16:05 - Physician 00 :00 Administere d (J9035) Bevacizumab 2021- No [id number] 1.25mg 1.25 mg, Yanely (AVASTIN) 08-1311 Physician Seyb old 100 mg/4 mL 16:00: 16:05 Administer - Physician 00 :00 ed, ONCE, Administere 1 dose, On d (J9035) Mon08/13/21 at 1000 Potassium Yes 1{tbl} Take 1 [...] 10:03: by mouth 2 24 times daily [place]-3 Yes [id number] 1{capsu Take 1 K elsey Fatty Acids 3-11 le} capsule by Se ybold (Fish Oil 10:03: mouth Concentrate 24 daily ) 300 MG oral Capsule Multiple Yes [id number] 1{tbl} Take 1 K elsey Vitamin 3-11 tablet by Seybold (MULTI 10:03: mouth VITAMIN 24 nightly MENS OR) Potassium Yes 1{tbl} Take 1 Yara ey 99 MG oral 3-07 tablet by Seyb old Tablet 10:52: mouth 24 daily GLUCOSAMINE Yes 1{capsu Take 1 K elsey -FISH 3-07 le} capsule by Seybemmanuel OIL-EPA-DHA 10:52: mouth OR 24 daily Aspirin [...] 10:52: by mouth 2 24 times daily [place]-3 Yes [id number] 1{capsu Take 1 K elsey Fatty Acids 3-07 le} capsule by Se mathias (Fish Oil 10:52: mouth Concentrate 24 daily ) 300 MG oral Capsule Multiple Yes [id number] 1{tbl} Take 1 K elsey Vitamin 3-07 tablet by Zacheryold (MULTI 10:52: mouth VITAMIN 24 nightly MENS OR) Empaglifloz Yes [id number] 1 tablet Yanely in 3-07 po Q daily Seybold (Jardiance) 00:00: 10 MG oral 00 Tablet Gabapentin Yes [id number] 100mg Take 1 Yanely 100 MG oral 3-07 capsule Seybo ld Capsule 00:00: (100 mg 00 total) by mouth 3 times daily Insulin Yes [id number] 15 units Ke lsey Aspart 3-07 SQ before Seybold (NovoLOG) 00:00: major 100 UNIT/ML 00 meals TID subcutaneou s Solution Insulin Yes [id number] 85 units Ke lsey Glargine 3-07 SQ nightly Seybo ld (Basaglar 00:00: KwikPen) 00 100 UNIT/ML subcutaneou s Solution Pen-injecto r Insulin Pen Yes [id number] Takes K elsey Needle 31G 3-07 insulin Seybol d X 5 MM does 00:00: QID not apply 00 Misc GlipiZIDE Yes [id number] 10mg Take 1 Ke lsey 10 MG oral 3-07 tablet (10 Sey bold TABLET SR 00:00: mg total) 24 HR 00 by mouth in the morning. Empaglifloz 2021-0 Yes [id number] 1 tablet Yanely in 3-07 po Q daily Seybold (Jardiance) 00:00: 10 MG oral 00 Tablet Gabapentin 2021-0 Yes [id number] 100mg Take 1 Aynely 100 MG oral 3-07 capsule Seybo ld Capsule 00:00: (100 mg 00 total) by mouth 3 times daily Insulin 2021-0 Yes [id number] 15 units Ke lsey Aspart 3-07 SQ before Seybold (NovoLOG) 00:00: major 100 UNIT/ML 00 meals TID subcutaneou s Solution Insulin 2021-0 Yes [id number] 85 units Ke lsey Glargine 3-07 SQ nightly Seybo ld (Basaglar 00:00: KwikPen) 00 100 UNIT/ML subcutaneou s Solution Pen-injecto r Insulin Pen 2021-0 Yes [id number] Takes K elsey Needle 31G 3-07 insulin Seybol d X 5 MM does 00:00: QID not apply 00 Misc GlipiZIDE 2021-0 Yes [id number] 10mg Take 1 Ke lsey 10 MG oral 3-07 tablet (10 Sey bold TABLET SR 00:00: mg total) 24 HR 00 by mouth in the morning. Empaglifloz 2021-0 Yes [id number] 1 tablet Yanely in 3-07 po Q daily Seybold (Jardiance) 00:00: 10 MG oral 00 Tablet Gabapentin 2021-0 Yes [id number] 100mg Take 1 Yanely 100 MG oral 3-07 capsule Seybo ld Capsule 00:00: (100 mg 00 total) by mouth 3 times daily Insulin 2021-0 Yes [id number] 15 units Ke lsey Aspart 3-07 SQ before Seybold (NovoLOG) 00:00: major 100 UNIT/ML 00 meals TID subcutaneou s Solution Insulin 2021-0 Yes [id number] 85 units Ke lsey Glargine 3-07 SQ nightly Seybo ld (Basaglar 00:00: KwikPen) 00 100 UNIT/ML subcutaneou s Solution Pen-injecto r Insulin Pen 2021-0 Yes [id number] Takes K elsey Needle 31G 3-07 insulin Seybol d X 5 MM does 00:00: QID not apply 00 Misc GlipiZIDE 2021-0 Yes [id number] 10mg Take 1 Ke lsey 10 MG oral 3-07 tablet (10 Sey bold TABLET SR 00:00: mg total) 24 HR 00 by mouth in the morning. Empaglifloz 2021-0 Yes [id number] 1 tablet Yanely in 3-07 po Q daily Seybold (Jardiance) 00:00: 10 MG oral 00 Tablet Gabapentin 2021-0 Yes [id number] 100mg Take 1 Yanely 100 MG oral 3-07 capsule Seybo ld Capsule 00:00: (100 mg 00 total) by mouth 3 times daily Insulin 0 Yes [id number] 15 units Ke lsey Aspart 3-07 SQ before Seybold (NovoLOG) 00:00: major 100 UNIT/ML 00 meals TID subcutaneou s Solution Insulin 2021-0 Yes [id number] 85 units Ke lsey Glargine 3-07 SQ nightly Seybo ld (Basaglar 00:00: KwikPen) 00 100 UNIT/ML subcutaneou s Solution Pen-injecto r Insulin Pen Yes [id number] Takes K elsey Needle 31G 3-07 insulin Seybol d X 5 MM does 00:00: QID not apply 00 Misc GlipiZIDE Yes [id number] 10mg Take 1 Ke lsey 10 MG oral 3-07 tablet (10 Sey bold TABLET SR 00:00: mg total) 24 HR 00 by mouth in the morning. Empaglifloz 0 Yes [id number] 1 tablet Yanely in 3-07 po Q daily Seybold (Jardiance) 00:00: 10 MG oral 00 Tablet Gabapentin 2021-0 Yes [id number] 100mg Take 1 Yanely 100 MG oral 3-07 capsule Seybo ld Capsule 00:00: (100 mg 00 total) by mouth 3 times daily Insulin 2021-0 Yes [id number] 15 units Ke lsey Aspart 3-07 SQ before Seybold (NovoLOG) 00:00: major 100 UNIT/ML 00 meals TID subcutaneou s Solution Insulin 2021-0 Yes [id number] 85 units Ke lsey Glargine 3-07 SQ nightly Seybo ld (Basaglar 00:00: KwikPen) 00 100 UNIT/ML subcutaneou s Solution Pen-injecto r Insulin Pen Yes [id number] Takes K elsey Needle 31G 3-07 insulin Seybol d X 5 MM does 00:00: QID not apply 00 Misc GlipiZIDE 0 Yes [id number] 10mg Take 1 Ke lsey 10 MG oral 3-07 tablet (10 Sey bold TABLET SR 00:00: mg total) 24 HR 00 by mouth in the morning. Insulin Yes [id number] 15 units Ke lsey Aspart 3-07 SQ before Seybold (NovoLOG) 00:00: major - 100 UNIT/ML 00 meals TID Ext winifred subcutaneou l s Solution Insulin Yes [id number] 15 units Ke lsey Aspart 3-07 SQ before Seybold (NovoLOG) 00:00: major - 100 UNIT/ML 00 meals TID Ext winifred subcutaneou l s Solution Allopurinol 2021-0 Yes [id number] 100mg Take 1 Yanely 100 MG oral 3-01 tablet Seybol d Tablet 00:00: (100 mg 00 total) by mouth daily Pravastatin 2021-0 Yes [id number] TAKE ONE Yanely Sodium 40 3-01 TABLET BY Seybo ld MG oral 00:00: MOUTH Tablet 00 EVERY NIGHT AT BEDTIME Carvedilol 2021-0 Yes 25mg Take 1 Kelse y 25 MG oral 3-01 tablet (25 Sey bold Tablet 00:00: mg total) 00 by mouth 2 times daily (with meals) Allopurinol 2021-0 Yes [id number] 100mg Take 1 Yanely 100 MG oral 3-01 tablet Seybol d Tablet 00:00: (100 mg 00 total) by mouth daily Pravastatin 2021-0 Yes [id number] TAKE ONE Yanely Sodium 40 3-01 TABLET BY Seybo ld MG oral 00:00: MOUTH Tablet 00 EVERY NIGHT AT BEDTIME Carvedilol 2021-0 Yes 25mg Take 1 Kelse y 25 MG oral 3-01 tablet (25 Sey bold Tablet 00:00: mg total) 00 by mouth 2 times daily (with meals) Allopurinol 2021-0 Yes [id number] 100mg Take 1 Yanely 100 MG oral 3-01 tablet Seybol d Tablet 00:00: (100 mg 00 total) by mouth daily Pravastatin 2021-0 Yes [id number] TAKE ONE Yanely Sodium 40 3-01 TABLET BY Seybo ld MG oral 00:00: MOUTH Tablet 00 EVERY NIGHT AT BEDTIME Carvedilol 2021-0 Yes 25mg Take 1 Kelse y 25 MG oral 3-01 tablet (25 Sey bold Tablet 00:00: mg total) 00 by mouth 2 times daily (with meals) Allopurinol 2021-0 Yes [id number] 100mg Take 1 Yanely 100 MG oral 3-01 tablet Seybol d Tablet 00:00: (100 mg 00 total) by mouth daily Pravastatin 2021-0 Yes [id number] TAKE ONE Yanely Sodium 40 3-01 TABLET BY Seybo ld MG oral 00:00: MOUTH Tablet 00 EVERY NIGHT AT BEDTIME Carvedilol 0 Yes 25mg Take 1 Kelse y 25 MG oral 3-01 tablet (25 Sey bold Tablet 00:00: mg total) 00 by mouth 2 times daily (with meals) Allopurinol 2021-0 Yes [id number] 100mg Take 1 Yanely 100 MG oral 3-01 tablet Seybol d Tablet 00:00: (100 mg 00 total) by mouth daily Pravastatin 2021-0 Yes [id number] TAKE ONE Yanely Sodium 40 3-01 TABLET BY Seybo ld MG oral 00:00: MOUTH Tablet 00 EVERY NIGHT AT BEDTIME Carvedilol 0 Yes 25mg Take 1 Kelse y 25 MG oral 3-01 tablet (25 Sey bold Tablet 00:00: mg total) 00 by mouth 2 times daily (with meals) Gabapentin 2021-2021- No 100mg Take 1 Ricardo sey 100 MG oral 3-01 03-07 capsule Seyb old Capsule 00:00: 00:00 (100 mg 00 :00 total) by mouth 3 times daily Bevacizumab 2021-2021- No [id number] 1.25mg Yanely (AVASTIN) 07-02 Seybold 100 mg/4 mL 14:15: 14:29 - Physician 00 :00 Administere d (J9035) Bevacizumab 2021-2021- No [id number] 1.25mg 1.25 mg, Yanely (AVASTIN) 07-02 Physician Seyb old 100 mg/4 mL 14:15: 14:29 Administer - Physician 00 :00 ed, ONCE, Administere 1 dose, On d (J9035) Mon07/02/21 at 0815 Potassium Yes 1{tbl} Take 1 Yara ey 99 MG oral 1-28 tablet by Seyb old Tablet 08:24: mouth 50 daily GLUCOSAMINE Yes 1{capsu Take 1 K elsey -FISH 1-28 le} capsule by Luiza OIL-EPA-DHA 08:24: mouth OR 50 daily Aspirin 81 Yes 1{capsu Take 1 Ke lsey MG oral 1-28 le} capsule by Seybol d Capsule 08:24: mouth 50 daily Magnesium Yes 296mL Take 296 Ricardo sey Citrate 1-28 mL by Seybold oral 08:24: mouth once Solution 50 Fenugreek Yes 2{capsu Take 2 Ricardo sey 500 MG oral 1-28 le} capsules Seyb old Capsule 08:24: by mouth 2 50 times daily [place]-3 Yes [id number] 1{capsu Take 1 K elsey Fatty Acids 1-28 le} capsule by Se mathias (Fish Oil 08:24: mouth Concentrate 50 daily ) 300 MG oral Capsule Multiple Yes [id number] 1{tbl} Take 1 K elsey Vitamin 1-28 tablet by Luiza (MULTI 08:24: mouth VITAMIN 50 nightly MENS OR) Bevacizumab 2020-06- No [id number] 1.25mg Yanely (AVASTIN) 2-17 12-17 Seybold 100 mg/4 mL 14:45: 14:34 - Physician 00 :00 Administere d (J9035) Bevacizumab 2020-06- No [id number] 1.25mg 1.25 mg, Yanely (AVASTIN) 2-17 12-17 Physician Seyb old 100 mg/4 mL 14:45: 14:34 Administer - Physician 00 :00 ed, ONCE, Administere 1 dose, On d (J9035) Mon05/21/21 at 0845 Potassium 2020-06 Yes 1{tbl} Take 1 Yara ey 99 MG oral 2-17 tablet by Seyb old Tablet 08:04: mouth 02 daily GLUCOSAMINE 2020-06 Yes 1{capsu Take 1 K elsey -FISH 2-17 le} capsule by Seybold OIL-EPA-DHA 08:04: mouth OR 02 daily Aspirin [...] 08:04: by mouth 2 02 times daily [place]-3 2020-06 Yes [id number] 1{capsu Take 1 K elsey Fatty Acids 2-17 le} capsule by [employer] ybemmanuel (Fish Oil 08:04: mouth Concentrate 02 daily ) 300 MG oral Capsule Multiple 2020-06 Yes [id number] 1{tbl} Take 1 K elsey Vitamin 2-17 tablet by Seybold (MULTI 08:04: mouth VITAMIN 02 nightly MENS OR) Allopurinol 2020-06 Yes [id number] 100mg Take 1 Yanely 100 MG oral 2-07 tablet Seybol d Tablet 00:00: (100 mg 00 total) by mouth daily Gabapentin 2020-06 Yes 100mg Take 1 Yara ey 100 MG oral 2-07 capsule Seybo ld Capsule 00:00: (100 mg 00 total) by mouth 3 times daily Allopurinol 2020-06 Yes [id number] 100mg Take 1 Yanely 100 MG oral 2-07 tablet Seybol d Tablet 00:00: (100 mg 00 total) by mouth daily Gabapentin 2020-06 Yes 100mg Take 1 Yara ey 100 MG oral 2-07 capsule Seybo ld Capsule 00:00: (100 mg 00 total) by mouth 3 times daily Bevacizumab 2020-06- No [id number] 1.25mg Yanely (AVASTIN) 06-23 Seybold 100 mg/4 mL 14:15: 14:19 - Physician 00 :00 Administere d (J9035) Bevacizumab 2020-06- No [id number] 1.25mg 1.25 mg, Yanely (AVASTIN) 06-23 Physician yb old 100 mg/4 mL 14:15: [...] 08:17: by mouth 2 22 times daily [place]-3 2020-06 Yes [id number] 1{capsu Take 1 K elsey Fatty Acids 1-19 le} capsule by Se ybold (Fish Oil 08:17: mouth Concentrate 22 daily ) 300 MG oral Capsule Multiple 2020-06 Yes [id number] 1{tbl} Take 1 K elsey Vitamin 1-19 tablet by Seybold (MULTI 08:17: mouth VITAMIN 22 nightly MENS OR) Allopurinol 2020-06 Yes [id number] 100mg Take 100 Yanely 100 MG oral 1-19 mg by Seybold Tablet 08:17: mouth 22 daily Bevacizumab 2020-06- No [id number] 1.25mg Yanely (AVASTIN) 0-15 10-15 Seybold 100 mg/4 mL 14:30: 14:23 - Physician 00 :00 Administere d (J9035) Bevacizumab 2020-06- No [id number] 1.25mg 1.25 mg, Yanely (AVASTIN) 0-15 10-15 Physician Seyb old 100 mg/4 mL 14:30: 14:23 Administer - Physician 00 :00 ed, ONCE, Administere 1 dose, On d (J9035) Mon03/19/21 at 0930 Potassium 2020-06 Yes 1{tbl} Take 1 Yara ey 99 MG oral 0-15 tablet by Seyb old Tablet 09:06: mouth 12 daily GLUCOSAMINE 2020-06 Yes 1{capsu Take 1 K elsey -FISH 0-15 le} capsule by Seybemmanuel OIL-EPA-DHA 09:06: mouth OR 12 daily Aspirin [...] 09:06: by mouth 2 12 times daily [place]-3 2020-06 Yes [id number] 1{capsu Take 1 K elsey Fatty Acids 0-15 le} capsule by Se ybemmanuel (Fish Oil 09:06: mouth Concentrate 12 daily ) 300 MG oral Capsule Multiple 2020-06 Yes [id number] 1{tbl} Take 1 K elsey Vitamin 0-15 tablet by Seybold (MULTI 09:06: mouth VITAMIN 12 nightly MENS OR) Allopurinol 2020-06 Yes [id number] 100mg Take 100 Yanely 100 MG oral 0-15 mg by Seybold Tablet 09:06: mouth 12 daily Insulin 2020-06 Yes [id number] 15 units Ke lsey Aspart 0-13 SQ before Seybold (NovoLOG) 00:00: major 100 UNIT/ML 00 meals TID subcutaneou s Solution Insulin 2020-06 Yes [id number] 15 units Ke lsey Aspart 0-13 SQ before Seybold (NovoLOG) 00:00: major 100 UNIT/ML 00 meals TID subcutaneou s Solution Insulin 2020-06 Yes [id number] 15 units Ke lsey Aspart 0-13 SQ before Seybold (NovoLOG) 00:00: major 100 UNIT/ML 00 meals TID subcutaneou s Solution Insulin 2020-06 Yes [id number] 15 units Ke lsey Aspart 0-13 SQ before Seybold (NovoLOG) 00:00: major 100 UNIT/ML 00 meals TID subcutaneou s Solution Insulin 2020-06- No [id number] 15 units K elsey Aspart 0-13 03-07 [...] subcutaneou s Solution Pen-injecto r Insulin 2020-06 85 units Kelse y Glargine 0-12 03-07 [...] 14:59: by mouth 2 04 times daily [place]-3 2020-06 Yes [id number] 1{capsu Take 1 K elsey Fatty Acids 0-11 le} capsule by Se ybold (Fish Oil 14:59: mouth Concentrate 04 daily ) 300 MG oral Capsule Multiple 2020-06 Yes [id number] 1{tbl} Take 1 K elsey Vitamin 0-11 tablet by Seybold (MULTI 14:59: mouth VITAMIN 04 nightly MENS OR) Allopurinol 2020-06 Yes [id number] 100mg Take 100 Yanely 100 MG oral 0-11 mg by Seybold Tablet 14:59: mouth 04 daily Insulin 2020-06 Yes [id number] 80 units Ke lsey Glargine, 1 0-11 SQ once Seybo ld Unit Dial, 00:00: nightly at ([place] 00 bedtime SoloStar) 300 UNIT/ML subcutaneou s Solution Pen-injecto r Pravastatin 2020-06 Yes [id number] 40mg Take 1 Yanely Sodium 40 0-11 tablet (40 Seyb old MG oral 00:00: mg total) Tablet 00 by mouth nightly Insulin 2020-06 Yes [id number] 15 units Ke lsey Aspart 0-11 SQ before Seybold (NovoLOG 00:00: major FlexPen) 00 meals TID 100 UNIT/ML subcutaneou s Solution Pen-injecto r Insulin Pen 2020-06 Yes [id number] Takes K elsey Needle 31G 0-11 insulin Seybol d X 5 MM does 00:00: QID not apply 00 Misc Empaglifloz 2020-06 Yes [id number] 1 tablet Yanely in 0-11 po Q daily Seybold (Jardiance) 00:00: 10 MG oral 00 Tablet Pravastatin 2020-06 Yes [id number] 40mg Take 1 Yanely Sodium 40 0-11 tablet (40 Seyb old MG oral 00:00: mg total) Tablet 00 by mouth nightly Insulin Pen 2020-06 Yes [id number] Takes K elsey Needle 31G 0-11 insulin Seybol d X 5 MM does 00:00: QID not apply 00 Misc Empaglifloz 2020-06 Yes [id number] 1 tablet Yanely in 0-11 po Q daily Seybold (Jardiance) 00:00: 10 MG oral 00 Tablet Pravastatin 2020-06 Yes [id number] 40mg Take 1 Yanely Sodium 40 0-11 tablet (40 Seyb old MG oral 00:00: mg total) Tablet 00 by mouth nightly Insulin Pen 2020-06 Yes [id number] Takes K elsey Needle 31G 0-11 insulin Seybol d X 5 MM does 00:00: QID not apply 00 Misc Empaglifloz 2020-06 Yes [id number] 1 tablet Yanely in 0-11 po Q daily Seybold (Jardiance) 00:00: 10 MG oral 00 Tablet Pravastatin 2020-06 Yes [id number] 40mg Take 1 Yanely Sodium 40 0-11 tablet (40 Seyb old MG oral 00:00: mg total) Tablet 00 by mouth nightly Insulin Pen 2020-06 Yes [id number] Takes K elsey Needle 31G 0-11 insulin Seybol d X 5 MM does 00:00: QID not apply 00 Misc Empaglifloz 2020-06 Yes [id number] 1 tablet Yanely in 0-11 po Q daily Seybold (Jardiance) 00:00: 10 MG oral 00 Tablet Pravastatin 2020-06 Yes [id number] 40mg Take 1 Yanely Sodium 40 0-11 tablet (40 Seyb old MG oral 00:00: mg total) Tablet 00 by mouth nightly Insulin Pen 2020-06 Yes [id number] Takes K elsey Needle 31G 0-11 insulin Seybol d X 5 MM does 00:00: QID not apply 00 Misc Empaglifloz 2020-06 Yes [id number] 1 tablet Yanely in 0-11 po Q daily Seybold (Jardiance) 00:00: 10 MG oral 00 Tablet Insulin Pen 2020-06- No [id number] Takes Yanely Needle 31G 0-11 03-07 insulin Seybo ld X 5 MM does 00:00: 00:00 QID not apply 00 :00 Misc Empaglifloz 2020-06- No [id number] 1 tablet Yanely in 0-11 03-07 po Q daily Seybold (Jardiance) 00:00: 00:00 10 MG oral 00 :00 Tablet Na Yes USE Yanely Sulfate-K 9-16 DIRECTED [...] 15:01: by mouth 2 30 times daily Aspirin 81 Yes 1{capsu Take 1 Ke lsey MG oral 9-15 le} capsule by Seybol d Capsule 15:00: mouth 22 daily Magnesium 0 Yes 296mL Take 296 Ricardo sey Citrate 9-15 mL by Seybold oral 15:00: mouth once Solution 22 Potassium 0 Yes 1{tbl} Take 1 Yara ey 99 [...] oral 15:00: mouth once Solution 22 Potassium 0 Yes 1{tbl} Take 1 Yara ey 99 MG oral 9-15 tablet by Seyb old Tablet 15:00: mouth 22 daily GLUCOSAMINE Yes 1{capsu Take 1 K elsey -FISH 9-15 le} capsule by Seybold OIL-EPA-DHA 15:00: mouth OR 22 daily SitaGLIPtin 2020-0 2020- No 2{tbl} Take 2 K elsey -MetFORMIN 9-15 09-15 tablets by Se ybold HCl 50-1000 14:56: 00:00 mouth MG oral 19 :00 TABLET SR 24 HR linaCLOtide Yes [id number] 145ug Take 1 Yanely (Linzess) 9-15 capsule Seybold 145 MCG 00:00: (145 mcg oral 00 total) by Capsule mouth daily linaCLOtide Yes [id number] 145ug Take 1 Yanely (Linzess) 9-15 capsule Seybold 145 MCG 00:00: (145 mcg oral 00 total) by Capsule mouth daily linaCLOtide Yes [id number] 145ug Take 1 Yanely (Linzess) 9-15 capsule Seybold 145 MCG 00:00: (145 mcg oral 00 total) by Capsule mouth daily linaCLOtide Yes [id number] 145ug Take 1 Yanely (Linzess) 9-15 capsule Seybold 145 MCG 00:00: (145 mcg oral 00 total) by Capsule mouth daily linaCLOtide Yes [id number] 145ug Take 1 Yanely (Linzess) 9-15 capsule Seybold 145 MCG 00:00: (145 mcg oral 00 total) by Capsule mouth daily linaCLOtide Yes [id number] 145ug Take 1 Yanely (Linzess) 9-15 capsule Seybold 145 MCG 00:00: (145 mcg oral 00 total) by Capsule mouth daily linaCLOtide Yes [id number] 145ug Take 1 Yanely (Linzess) 9-15 capsule Seybold 145 MCG 00:00: (145 mcg oral 00 total) by Capsule mouth daily linaCLOtide 0 Yes [id number] 145ug Take 1 Yanely (Linzess) 9-15 capsule Seybold 145 MCG 00:00: (145 mcg oral 00 total) by Capsule mouth daily linaCLOtide Yes [id number] 145ug Take 1 Yanely (Linzess) 9-15 capsule Seybold 145 MCG 00:00: (145 mcg oral 00 total) by Capsule mouth daily linaCLOtide Yes [id number] 145ug Take 1 Yanely (Linzess) 9-15 capsule Seybold 145 MCG 00:00: (145 mcg oral 00 total) by Capsule mouth daily linaCLOtide Yes [id number] 145ug Take 1 Yanely (Linzess) 9-15 capsule Seybold 145 MCG 00:00: (145 mcg oral 00 total) by Capsule mouth daily Sod Yes [id number] Instructio Ke lsey Picosulfate 9-15 n given to Se ybold -Mag Ox-Cit 00:00: patient in [facility] 00 clinic. (Clenpiq) Use as 10-3.5-12 directed MG-GM by -GM/160ML provider oral during Solution office visit. linaCLOtide Yes [id number] 145ug Take 1 Yanely (Linzess) 9-15 capsule Seybold 145 MCG 00:00: (145 mcg oral 00 total) by Capsule mouth daily Bevacizumab 2020- No [id number] 1.25mg Yanely (AVASTIN) 02-12 Seybold 100 mg/4 mL 19:15: 19:17 - Physician 00 :00 Administere d ([id number]) Bevacizumab 2020- No [id number] 1.25mg 1.25 mg, Yanely (AVASTIN) 02-12 Physician Seyb old 100 mg/4 mL 19:15: 19:17 Administer - Physician 00 :00 ed, ONCE, Administere 1 dose, On d (J9035) Mon02/12/21 at 1415 SitaGLIPtin Yes 2{tbl} Take 2 Ke lsey -MetFORMIN 9-10 tablets by Breanna taylor HCl 50-1000 13:38: mouth MG oral 10 TABLET SR 24 HR Pravastatin Yes Yanely Sodium 40 7-22 Seybold MG oral 00:00: Tablet 00 Pravastatin Yes Yanely Sodium 40 7-22 Seybold MG oral 00:00: Tablet 00 Pravastatin Yes Yanely Sodium 40 7-22 Seybold MG oral 00:00: Tablet 00 Pravastatin 2020-0 2020- No Kelse y Sodium 40 7-22 10-11 Seybold MG oral 00:00: 00:00 Tablet 00 :00 Gabapentin 2020-0 Yes 1{capsu Take 1 Ke lsey 100 [...] 00:00: mouth 2 00 times daily Duloxetine 1-0 Yes Yanely HCl 30 MG 7-02 Seybold [...] Seybold oral Cap DR 00:00: Particles 00 Janumet 1-0 Yes 1{tbl} Take 1 Yanely 50-1000 MG 7-02 tablet by Seyb old oral Tablet 00:00: mouth 00 daily Duloxetine 2020-0 Yes Yanely HCl 30 MG 7-[address] 00:00: Particles 00 Duloxetine 2020-0 Yes Yanely HCl 30 MG 7-[address] 00:00: Particles 00 Janumet 0 Yes 2{tbl} Take 2 Yanely 50-1000 MG 7-02 tablets by Sey bold oral Tablet 00:00: mouth 00 daily Duloxetine 2020-0 Yes Yanely HCl 30 MG 7-[address] 00:00: Particles 00 Junumet 0 Yes 2{tbl} Take 2 Yanely 50-1000 MG 7-02 tablets by Sey bold oral Tablet 00:00: mouth 00 daily Janumet 2020-0 2020- No 2{tbl} Take 2 Kelse y 50-1000 MG 7-02 10-11 tablets by Se ybold oral Tablet 00:00: 00:00 mouth 00 :00 daily Clonidine 2020-0 Yes 1{tbl} Take 1 [...] oral Tablet 00:00: mouth 00 daily Clonidine 2020-0 Yes 1{tbl} Take 1 Yara ey HCl 0.1 MG 6-05 tablet by Seyb old oral Tablet 00:00: mouth 2 00 times daily Clonidine 2020-0 Yes 1{tbl} Take 1 Yara ey HCl 0.1 MG 6-05 tablet by Seyb old oral Tablet 00:00: mouth 2 - 00 times Externa daily l Clonidine 2020-0 Yes 1{tbl} Take 1 Yara ey HCl 0.1 MG 6-05 tablet by Seyb old oral Tablet 00:00: mouth 2 - 00 times Externa daily l Clonidine 2020-0 Yes 1{tbl} Take 1 Yara ey HCl 0.1 MG 6-05 tablet by Seyb old oral Tablet 00:00: mouth 2 - 00 times Externa daily l Clonidine 2020-0 Yes 1{tbl} Take 1 Yara ey HCl 0.1 MG 6-05 tablet by Seyb old oral Tablet 00:00: mouth 2 - 00 times Externa daily l Clonidine 2020-0 Yes 1{tbl} Take 1 Yara ey HCl 0.1 MG 6-05 tablet by Seyb old oral Tablet 00:00: mouth 2 00 times daily Clonidine 2020-0 2022- No 1{tbl} Take 1 Ricardo sey HCl 0.1 MG 6-05 02-16 tablet by Sey bold oral Tablet 00:00: 00:00 mouth 2 - 00 :00 times Externa daily l Insulin 2020-0 1- No 100U/d Inject 100 K elsey Glargine, [...] UNIT/ML subcutaneou s Solution Pen-injecto r carvedilol No 25mg Take 25 mg [facility] 25 mg 1-15 01-15 by mouth 2 ity of tablet 12:05: 00:00 (two) [place] 06 :00 times Medical daily with Branch [...] [place] 29 times Medical daily. Branch amitriptyli Yes 10mg Take 10 mg [facility] ne 10 mg 1-15 by mouth ity of tablet 11:20: daily. [facility] allopurinol 2020-0 Yes 100mg Take 100 U nivers 100 mg 1-15 mg by ity of tablet 11:20: mouth [place] 29 daily. Medical Branch insulin 0 Yes 80U inject 80 Unive rs glargine,hu 1-15 Units ity of m.rec.anlog 11:20: [place] (TOUJEO MAX 29 skin every Me dical U-300 morning. [place] [facility] primidone 2020-0 Yes 50mg Take 50 mg Un rafael 50 mg 1-15 by mouth 2 ity of tablet 11:20: (two) times Medical daily. Branch amitriptyli 0 Yes 10mg Take 10 mg Univers ne 10 mg 1-15 by mouth ity of tablet 11:20: daily. [place] [facility] allopurinol 0 Yes 100mg Take 100 U nivers 100 mg 1-15 mg by ity of tablet 11:20: mouth daily. Medical Branch insulin 0 Yes 80U inject 80 Unive rs glargine,hu 1-15 Units ity of m.rec.anlog 11:20: [place] (TOUJEO MAX 29 skin every Me dical U-300 morning. Branch [facility]) primidone 2020-0 Yes 50mg Take 50 mg Un rafael 50 mg 1-15 by mouth 2 ity of tablet 11:20: (two) 29 times Medical daily. Branch amitriptyli 2020-0 Yes 10mg Take 10 mg Univers ne 10 mg 1-15 by mouth ity of tablet 11:20: daily. [place] [id number] Medical Branch allopurinol 0 Yes 100mg Take 100 U nivers 100 mg 1-15 mg by ity of tablet 11:20: mouth [place] 29 daily. Medical Branch insulin 2020-0 Yes 80U inject 80 Unive rs glargine,hu 1-15 Units ity of m.rec.anlog 11:20: [place] (TOU[place]O MAX 29 skin every Me dical U-300 morning. Branch [facility] primidone 2020-0 Yes 50mg Take 50 mg [...] mouth [place] 29 daily. Medical Branch insulin 2020-0 Yes 80U inject 80 Unive rs glargine,hu 1-15 Units ity of m.rec.anlog 11:20: [place] (TOUJEO MAX 29 skin every Me dical U-300 morning. Branch [facility]) primidone 2020-0 Yes 50mg Take 50 mg Un rafael 50 mg 1-15 by mouth 2 ity of tablet 11:20: (two) [place] 29 times Medical daily. Branch amitriptyli 2020-0 Yes 10mg Take 10 mg Univers ne 10 mg 1-15 by mouth ity of tablet 11:20: daily. Medical Branch allopurinol 2020-0 Yes 100mg Take 100 U nivers 100 mg 1-15 mg by ity of tablet 11:20: mouth [place] 29 daily. Medical Branch insulin 2020-0 Yes 80U inject 80 Unive rs glargine,hu 1-15 Units ity of m.rec.anlog 11:20: [place] (TOU[place]O MAX 29 skin every Me dical U-300 morning. Branch [facility]) primidone 2020-0 Yes 50mg Take 50 mg Un rafael 50 mg 1-15 by mouth 2 ity of tablet 11:20: (two) [place] 29 times Medical daily. Branch amitriptyli 2020-0 Yes 10mg Take 10 mg Univers ne 10 mg 1-15 by mouth ity of tablet 11:20: daily. Medical Branch allopurinol 2020-0 Yes 100mg Take 100 U nivers 100 mg 1-15 mg by ity of tablet 11:20: mouth [place] 29 daily. Medical Branch insulin 2020-0 Yes 80U inject 80 Unive rs glargine,hu 1-15 Units ity of m.rec.anlog 11:20: [place] ([place] MAX 29 skin every Me dical U-300 morning. Branch [facility]) primidone 2020-0 Yes 50mg Take 50 mg [...] skin every Me dical U-300 morning. Branch [facility]) primidone 2020-0 Yes 50mg Take 50 mg [...] mouth [place] 29 daily. Medical Branch insulin 2020-0 Yes 80U inject 80 Unive rs glargine,hu 1-15 Units ity of m.rec.anlog 11:20: [place] (T[place] MAX 29 skin every Me dical U-300 morning. Branch [facility]) primidone 2020-0 Yes 50mg Take 50 mg [...] mouth [place] 29 daily. Medical Branch insulin 2021-0 Yes 80U inject 80 Unive rs glargine,hu 1-15 Units ity of m.rec.anlog 11:20: [place] (TOUJEO MAX 29 skin every Me dical U-300 morning. Branch [facility]) primidone Yes 50mg Take 50 mg Un rafael 50 mg 1-15 by mouth 2 ity of tablet 11:20: (two) [place] times Medical daily. Branch amitriptyli Yes 10mg Take 10 mg Univers ne 10 mg 1-15 by mouth ity of tablet 11:20: daily. [place] [facility] allopurinol Yes 100mg Take 100 U nivers 100 mg 1-15 mg by ity of tablet 11:20: mouth daily. Medical Branch carvediloL Yes [id number] 25mg Take 1 U nivers 25 mg 1-15 tablet by ity of tablet 00:00: mouth 2 (two) Medical times Branch daily with meals. hydrALAZINE Yes [id number] 50mg Take 1 Univers 50 mg 1-15 tablet by ity of tablet 00:00: mouth 2 [place] (two) Medical times Branch daily. pravastatin Yes [id number] 40mg Take 1 Univers 40 mg 1-15 tablet by ity of tablet 00:00: mouth at [place] 00 bedtime. Medical Branch furosemide Yes [id number] 40mg Take 1 U nivers 40 mg 1-15 tablet by ity of tablet 00:00: mouth 00 daily. Medical Branch cloNIDine 0 Yes [id number] .1mg Take 1 Un rafael 0.1 mg 1-15 tablet by ity of tablet 00:00: mouth 2 [place] 00 (two) Medical times Branch daily. carvediloL Yes [id number] 25mg Take 1 U nivers 25 mg 1-15 tablet by ity of tablet 00:00: mouth 2 [place] (two) Medical times Branch daily with meals. Carvedilol 0 Yes 25mg Take 25 mg K elsey 25 MG oral 1-15 by mouth 2 Sey bold Tablet 00:00: times 00 daily (with meals) hydrALAZINE 0 Yes 50mg Take 50 mg Yanely HCl 50 MG 1-15 by mouth 2 Seyb old oral Tablet 00:00: times 00 daily hydrALAZINE 2020-0 Yes [id number] 50mg Take 1 Univers 50 mg 1-15 tablet by ity of tablet 00:00: mouth 2 [place] 00 (two) Medical times Branch daily. hydrALAZINE 2020-0 Yes 50mg Take 1 Yara ey HCl 50 MG 1-15 tablet (50 Seyb old oral Tablet 00:00: mg total) - 00 by mouth 3 Externa times l daily. hydrALAZINE 2020-0 Yes 50mg Take 1 Yara ey HCl 50 MG 1-15 tablet (50 Seyb old oral Tablet 00:00: mg total) - 00 by mouth 3 Externa times l daily. Furosemide 2020-0 Yes 40mg Take 40 mg [...] Seybo ld Tablet 00:00: daily 00 Carvedilol 1-0 Yes 25mg Take 25 mg K elsey 25 MG oral 1-15 by mouth 2 Sey bold Tablet 00:00: times 00 daily (with meals) hydrALAZINE 2020-0 Yes 50mg Take 50 mg Yanely HCl 50 MG 1-15 by mouth 2 Seyb old oral Tablet 00:00: times 00 daily Furosemide 1-0 Yes 40mg Take 40 mg K elsey 40 MG oral 1-15 by mouth Seybo ld Tablet 00:00: daily 00 Carvedilol 2021-0 Yes 25mg Take 25 mg K elsey 25 MG oral 1-15 by mouth 2 Sey bold Tablet 00:00: times 00 daily (with meals) pravastatin 1-0 Yes [id number] 40mg Take 1 Univers 40 mg 1-15 tablet by ity of tablet 00:00: mouth at [place] 00 bedtime. Medical Branch hydrALAZINE 0 Yes 50mg Take 50 mg [...] mouth Seybo ld Tablet 00:00: daily 00 furosemide 2020-0 Yes [id number] 40mg Take 1 U nivers 40 mg 1-15 tablet by ity of tablet 00:00: mouth [place] daily. Medical Branch hydrALAZINE 2020-0 Yes 50mg Take 50 mg [...] old oral Tablet 00:00: times 00 daily cloNIDine 2020-0 Yes [id number] .1mg Take 1 Un rafael 0.1 mg 1-15 tablet by ity of tablet 00:00: mouth 2 [place] 00 (two) Medical times Branch daily. Furosemide 2020-0 Yes 40mg Take 40 mg K elsey 40 MG oral 1-15 by mouth Seybo ld Tablet 00:00: daily - 00 Externa l hydrALAZINE 2020-0 Yes 50mg Take 50 mg Yanely HCl 50 MG 1-15 by mouth 2 Seyb old oral Tablet 00:00: times - 00 daily Externa l Furosemide 2020-0 Yes 40mg Take 40 mg K elsey 40 MG oral 1-15 by mouth Seybo ld Tablet 00:00: daily - 00 Externa l hydrALAZINE 2020-0 Yes 50mg Take 50 mg Yanely HCl 50 MG 1-15 by mouth 2 Seyb old oral Tablet 00:00: times - 00 daily Externa l Furosemide 2020-0 Yes 40mg Take 40 mg K elsey 40 MG oral 1-15 by mouth Seybo ld Tablet 00:00: daily - 00 Externa l hydrALAZINE 0 Yes 50mg Take 50 mg [...] by mouth Seybo ld Tablet 00:00: daily - 00 Externa l hydrALAZINE 0 Yes 50mg Take 50 mg Yanely HCl 50 MG 1-15 by mouth 2 Seyb old oral Tablet 00:00: times - 00 daily Externa l Carvedilol 0 Yes 25mg Take 25 mg K elsey 25 MG oral 1-15 by mouth 2 Sey bold Tablet 00:00: times 00 daily (with meals) carvediloL 2020-0 Yes [id number] 25mg Take 1 U nivers 25 mg 1-15 tablet by ity of tablet 00:00: mouth 2 [place] [id number] (two) Medical times Branch daily with meals. hydrALAZINE Yes 50mg Take 50 mg Yanely HCl 50 MG 1-15 by mouth 2 Seyb old oral Tablet 00:00: times 00 daily Furosemide 0 Yes 40mg Take 40 mg K elsey 40 MG oral 1-15 by mouth 2 Sey bold Tablet 00:00: times - 00 daily 1 in Externa am and 1 l in pm hydrALAZINE 2020-0 Yes 50mg Take 50 mg Yanely HCl 50 MG 1-15 by mouth 3 Seyb old oral Tablet 00:00: times - 00 daily Externa l hydrALAZINE 2020-0 Yes 50mg Take 50 mg Yanely HCl 50 MG 1-15 by mouth 3 Seyb old oral Tablet 00:00: times - 00 daily Externa l hydrALAZINE 2020-0 Yes 50mg Take 1 Yara ey HCl 50 MG 1-15 tablet (50 Seyb old oral Tablet 00:00: mg total) - 00 by mouth 3 Externa times l daily. hydrALAZINE 0 Yes 50mg Take 1 Yara ey HCl 50 MG 1-15 tablet (50 Seyb old oral Tablet 00:00: mg total) - 00 by mouth 3 Externa times l daily. Furosemide 0 Yes 40mg Take 40 mg K elsey 40 MG oral 1-15 by mouth Seybo ld Tablet 00:00: daily 00 hydrALAZINE 2020-0 Yes 50mg Take 1 Yara ey HCl 50 MG 1-15 tablet (50 Seyb old oral Tablet 00:00: mg total) - 00 by mouth 3 Externa times l daily. hydrALAZINE 2020-0 Yes [id number] 50mg Take 1 Univers 50 mg 1-15 tablet by ity of tablet 00:00: mouth 2 (two) Medical times Branch daily. pravastatin 2020-0 Yes [id number] 40mg Take 1 Univers 40 mg 1-15 tablet by ity of tablet 00:00: mouth at [place] bedtime. Medical Branch furosemide 0 Yes [id number] 40mg Take 1 U nivers 40 mg 1-15 tablet by ity of tablet 00:00: mouth 00 daily. Medical Branch carvediloL 0 Yes [id number] 25mg Take 1 U nivers 25 mg 1-15 tablet by ity of tablet 00:00: mouth (two) Medical times Branch daily with meals. hydrALAZINE 0 Yes [id number] 50mg Take 1 Univers 50 mg 1-15 tablet by ity of tablet 00:00: mouth (two) Medical times Branch daily. pravastatin 2020-0 Yes [id number] 40mg Take 1 Univers 40 mg 1-15 tablet by ity of tablet 00:00: mouth at [place] bedtime. Medical Branch furosemide 0 Yes [id number] 40mg Take 1 U nivers 40 mg 1-15 tablet by ity of tablet 00:00: mouth 00 daily. Medical Branch carvediloL 0 Yes [id number] 25mg Take 1 U nivers 25 mg 1-15 tablet by ity of tablet 00:00: mouth (two) Medical times Branch daily with meals. hydrALAZINE 2020-0 Yes [id number] 50mg Take 1 Univers 50 mg 1-15 tablet by ity of tablet 00:00: mouth 2 (two) Medical times Branch daily. pravastatin 2020-0 Yes [id number] 40mg Take 1 Univers 40 mg 1-15 tablet by ity of tablet 00:00: mouth at [place] 00 bedtime. Medical Branch furosemide 2020-0 Yes [id number] 40mg Take 1 U nivers 40 mg 1-15 tablet by ity of tablet 00:00: mouth 00 daily. Medical Branch carvediloL 2020-0 Yes [id number] 25mg Take 1 U nivers 25 mg 1-15 tablet by ity of tablet 00:00: mouth (two) Medical times Branch daily with meals. hydrALAZINE 2020-0 Yes [id number] 50mg Take 1 Univers 50 mg 1-15 tablet by ity of tablet 00:00: mouth 2 (two) Medical times Branch daily. pravastatin 2020-0 Yes [id number] 40mg Take 1 Univers 40 mg 1-15 tablet by ity of tablet 00:00: mouth at [place] 00 bedtime. Medical Branch furosemide 0 Yes [id number] 40mg Take 1 U nivers 40 mg 1-15 tablet by ity of tablet 00:00: mouth [place] 00 daily. Medical Branch carvediloL 2020-0 Yes [id number] 25mg Take 1 U nivers 25 mg 1-15 tablet by ity of tablet 00:00: mouth [place] (two) Medical times Branch daily with meals. hydrALAZINE 2020-0 Yes [id number] 50mg Take 1 Univers 50 mg 1-15 tablet by ity of tablet 00:00: mouth [place] (two) Medical times Branch daily. pravastatin 2020-0 Yes [id number] 40mg Take 1 [facility] 40 mg 1-15 tablet by ity of tablet 00:00: mouth at [place] 00 bedtime. Medical Branch furosemide 2020-0 Yes [id number] 40mg Take 1 U nivers 40 mg 1-15 tablet by ity of tablet 00:00: mouth 00 daily. Medical Branch carvediloL 2020-0 Yes [id number] 25mg Take 1 U nivers 25 mg 1-15 tablet by ity of tablet 00:00: mouth [place] (two) Medical times Branch daily with meals. hydrALAZINE 2020-0 Yes [id number] 50mg Take 1 Univers 50 mg 1-15 tablet by ity of tablet 00:00: mouth 2 [place] (two) Medical times Branch daily. pravastatin 2020-0 Yes [id number] 40mg Take 1 Univers 40 mg 1-15 tablet by ity of tablet 00:00: mouth at [place] 00 bedtime. Medical Branch furosemide 2020-0 Yes [id number] 40mg Take 1 U nivers 40 mg 1-15 tablet by ity of tablet 00:00: mouth 00 daily. Medical Branch cloNIDine 2020-0 Yes [id number] .1mg Take 1 Un rafael 0.1 mg 1-15 tablet by ity of tablet 00:00: mouth (two) Medical times Branch daily. carvediloL 2020-0 Yes [id number] 25mg Take 1 U nivers 25 mg 1-15 tablet by ity of tablet 00:00: mouth (two) Medical times Branch daily with meals. hydrALAZINE 0 Yes [id number] 50mg Take 1 Univers 50 mg 1-15 tablet by ity of tablet 00:00: mouth (two) Medical times Branch daily. pravastatin 2020-0 Yes [id number] 40mg Take 1 Univers 40 mg 1-15 tablet by ity of tablet 00:00: mouth at [place] bedtime. Medical Branch furosemide 2020-0 Yes [id number] 40mg Take 1 U nivers 40 mg 1-15 tablet by ity of tablet 00:00: mouth 00 daily. Medical Branch cloNIDine 2020-0 Yes [id number] .1mg Take 1 Un rafael 0.1 mg 1-15 tablet by ity of tablet 00:00: mouth (two) Medical times Branch daily. carvediloL 2020-0 Yes [id number] 25mg Take 1 U nivers 25 mg 1-15 tablet by ity of tablet 00:00: mouth (two) Medical times Branch daily with meals. hydrALAZINE 2020-0 Yes [id number] 50mg Take 1 Univers 50 mg 1-15 tablet by ity of tablet 00:00: mouth (two) Medical times Branch daily. pravastatin 2020-0 Yes [id number] 40mg Take 1 Univers 40 mg 1-15 tablet by ity of tablet 00:00: mouth at [place] 00 bedtime. Medical Branch furosemide 2020-0 Yes [id number] 40mg Take 1 U nivers 40 mg 1-15 tablet by ity of tablet 00:00: mouth 00 daily. Medical Branch cloNIDine 2020-0 Yes [id number] .1mg Take 1 Un rafael 0.1 mg 1-15 tablet by ity of tablet 00:00: mouth 2 [place] 00 (two) Medical times Branch daily. Furosemide 2020-0 3- No 40mg Take 40 mg Yanely 40 MG oral 1-15 07-14 by mouth 2 Se ybold Tablet 00:00: 00:00 times - 00 :00 daily 1 in Externa am and 1 l in pm cloNIDine 2020-0 2- No [id number] .1mg Take 1 U nivers 0.1 mg 1-15 03-16 tablet by ity of tablet 00:00: 00:00 mouth 2 [place] 00 : (two) Medical times Branch daily. cloNIDine 2020-0 2020- No .1mg Take 1 Unive rs 0.1 mg 1-12 -15 tablet by ity of tablet 00:00: 00:00 mouth 2 [place] 00 : (two) Medical times [place] daily. Need appointmen t and EKG for further refills. Please contact office. furosemide 2020-0 2020- No 40mg Take 1 Univ ers 40 mg 1-12 -15 tablet by ity of tablet 00:00: 00:00 mouth [place] 00 :00 daily. Medical Branch gabapentin 2020-0 Yes 3 (three) Un rafael 100 mg 1-06 times ity of capsule 00:00: daily. Medical Branch gabapentin 2020-0 Yes 3 (three) Un rafael 100 mg 1-06 times ity of capsule 00:00: daily. Medical Branch gabapentin 2020-0 Yes 3 (three) Un rafael 100 mg 1-06 times ity of capsule 00:00: daily. Medical Branch gabapentin 1-0 Yes 3 (three) Un rafael 100 mg 1-06 times ity of capsule 00:00: daily. Medical Branch gabapentin 2020-0 Yes 3 (three) Un rafael 100 mg 1-06 times ity of capsule 00:00: daily. Medical Branch gabapentin 1-0 Yes 3 (three) Un rafael 100 mg 1-06 times ity of capsule 00:00: daily. Medical Branch gabapentin 1-0 Yes 3 (three) Un rafael 100 mg 1-06 times ity of capsule 00:00: daily. Medical Branch gabapentin Yes 3 (three) Un rafael 100 mg 1-06 times ity of capsule 00:00: daily. Medical Branch gabapentin Yes 3 (three) Un rafael 100 mg 1-06 times ity of capsule 00:00: daily. Medical Branch gabapentin Yes 3 (three) Un rafael 100 mg 1-06 times ity of capsule 00:00: daily. Medical Branch pravastatin 2019-06- No [id number] 40mg Take 1 Univers 40 mg 2-16 01-15 tablet by ity of tablet 00:00: 00:00 mouth at [place] 00 :00 bedtime. Medical Branch hydrALAZINE 2020- No 50mg Take 1 Uni vers 50 mg 5-18 01-15 tablet by ity of tablet 00:00: 00:00 mouth [place] 00 :00 every 8 Medical (eight) Branch hours. Immunizations Ordered Immunization Filled Date Status Comments Sour ce Name Immunization Name Pneumococcal 2022-12-16 Completed Yanely Seybo ld Conjugate 15 00:00:00 - External (Vaxneuvance) Pneumococcal 2022-12-16 Completed Yanely Seybo ld Conjugate 15 00:00:00 - External (Vaxneuvance) Pneumococcal 2022-12-16 Completed Yanely Seybo ld Conjugate 15 00:00:00 - External (Vaxneuvance) Pneumococcal 2022-12-16 Completed Yanely Seybo ld Conjugate 15 00:00:00 - External (Vaxneuvance) Influenza Virus 2022-02-03 Completed Yanely mathias Vaccine, age 4 00:00:00 - External months and up COVID-19 VACCINE 2022-02-03 Completed Yanely Ludwig eybold PFIZER 12+ ([place] 00:00:00 - Clinical Psychiatrist al cap) Influenza Virus 2022-02-03 Completed Yanely johnsonold Vaccine, age 4 00:00:00 - External months and up COVID-19 VACCINE 2022-02-03 Completed Yanely S eybold PFIZER 12+ ([place] 00:00:00 - Clinical Psychiatrist al cap) Influenza Virus 2022-02-03 Completed Yanely mathias Vaccine, age 4 00:00:00 - External months and up COVID-19 VACCINE 2022-02-03 Completed Yanely salcedobold PFIZER 12+ ([place] 00:00:00 - Clinical Psychiatrist al cap) Influenza Virus 2022-02-03 Completed Yanely mathias Vaccine, age 4 00:00:00 - External months and up COVID-19 VACCINE 2022-02-03 Completed Yanely salcedobold PFIZER 12+ ([place] 00:00:00 - Clinical Psychiatrist al cap) Influenza Virus 2022-02-03 Completed Yanely mathias Vaccine, age 4 00:00:00 - External months and up COVID-19 VACCINE 2022-02-03 Completed Yanely salcedobold PFIZER 12+ ([place] 00:00:00 - Clinical Psychiatrist al cap) Influenza Virus 2022-02-03 Completed Yanely mathias Vaccine, age 4 00:00:00 - External months and up COVID-19 VACCINE 2022-02-03 Completed Yanely salcedobold PFIZER 12+ ([place] 00:00:00 - Clinical Psychiatrist al cap) Influenza Virus 2022-02-03 Completed Yanely mathias Vaccine, age 4 00:00:00 - External months and up COVID-19 VACCINE 2022-02-03 Completed Yanely salcedobold PFIZER 12+ ([place] 00:00:00 - Clinical Psychiatrist al cap) Influenza Virus 2022-02-03 Completed Yanely mathias Vaccine, age 4 00:00:00 - External months and up COVID-19 VACCINE 2022-02-03 Completed Yanely salcedobold PFIZER 12+ ([place] 00:00:00 - Clinical Psychiatrist al cap) Influenza Virus 2022-02-03 Completed Yanely mathias Vaccine, age 4 00:00:00 - External months and up COVID-19 VACCINE 2022-02-03 Completed Yanely gómezld PFIZER 12+ ([place] 00:00:00 - Clinical Psychiatrist al cap) Covid-19 Vaccine 2020-09-09 Completed Yanely Oziel daliald Moderna (Spikevax), 00:00:00 - Ext ernal Mrna-lnp, Jesse Protein, Pf Covid-19 Vaccine 2020-09-09 Completed Yanely gómezld (Moderna), Mrna-lnp, 00:00:00 Jesse Protein, Pf, 100 Mcg/0.5ml,IM Covid-19 Vaccine 2020-09-09 Completed Yanely Oziel salcedomarisolld (Moderna), Mrna-lnp, 00:00:00 Jesse Protein, Pf, 100 Mcg/0.5ml,IM Covid-19 Vaccine 2020-09-09 Completed Yanely salcedobold (Moderna), Mrna-lnp, 00:00:00 Jesse Protein, Pf, 100 Mcg/0.5ml,IM Covid-19 Vaccine 2020-09-09 Completed Yanely Oziel salcedomarisolld (Moderna), Mrna-lnp, 00:00:00 Jesse Protein, Pf, 100 Mcg/0.5ml,IM Covid-19 Vaccine 2020-09-09 Completed Yanely Oziel salcedobold (Moderna), Mrna-lnp, 00:00:00 Jesse Protein, Pf, 100 Mcg/0.5ml,IM Covid-19 Vaccine 2020-09-09 Completed Yanely salcedomarisolld (Moderna), Mrna-lnp, 00:00:00 Jesse Protein, Pf, 100 Mcg/0.5ml,IM Covid-19 Vaccine 2020-09-09 Completed Yanely Oziel salcedoclaudia Moderna (Spikevax), 00:00:00 Mrna-lnp, Jesse Protein, Pf Covid-19 Vaccine 2020-09-09 Completed Yanely Oziel salcedoclaudia Moderna (Spikevax), 00:00:00 Mrna-lnp, Jesse Protein, Pf Covid-19 Vaccine 2020-09-09 Completed Yanely salcedoclaudia Moderna (Spikevax), 00:00:00 Mrna-lnp, Jesse Protein, Pf Covid-19 Vaccine 2020-09-09 Completed Yanely Oziel salcedomarisolld Moderna (Spikevax), 00:00:00 Mrna-lnp, Jesse Protein, Pf Covid-19 Vaccine 2020-09-09 Completed Yanely Oziel salcedomarisolld Moderna (Spikevax), 00:00:00 Mrna-lnp, Jesse Protein, Pf Covid-19 Vaccine 2020-09-09 Completed Yanely Oziel salcedobold (Moderna), Mrna-lnp, 00:00:00 Jesse Protein, Pf, 100 Mcg/0.5ml,IM Covid-19 Vaccine 2020-09-09 Completed Yanely Oziel salcedomarisolld Moderna (Spikevax), 00:00:00 - Ext ernal Mrna-lnp, Jesse Protein, Pf Covid-19 Vaccine 2020-09-09 Completed Yanely macias Moderna (Spikevax), 00:00:00 - Ext ernal Mrna-lnp, Jesse Protein, Pf Covid-19 Vaccine 2020-09-09 Completed Yanely macias Moderna (Spikevax), 00:00:00 - Ext ernal Mrna-lnp, Jesse Protein, Pf Covid-19 Vaccine 2020-09-09 Completed Yanely macias Moderna (Spikevax), 00:00:00 - Ext ernal Mrna-lnp, Jesse Protein, Pf Covid-19 Vaccine 2020-09-09 Completed Yanely macias Moderna (Spikevax), 00:00:00 - Ext ernal Mrna-lnp, Jesse Protein, Pf Covid-19 Vaccine 2020-09-09 Completed Yanely macias (Moderna), Mrna-lnp, 00:00:00 Jesse Protein, Pf, 100 Mcg/0.5ml,IM Covid-19 Vaccine 2020-09-09 Completed Yanely macias Moderna (Spikevax), 00:00:00 - Ext ernal Mrna-lnp, Jesse Protein, Pf Covid-19 Vaccine 2020-09-09 Completed Yanely macias Moderna (Spikevax), 00:00:00 - Ext ernal Mrna-lnp, Jesse Protein, Pf Covid-19 Vaccine 2020-09-09 Completed Yanely macias Moderna (Spikevax), 00:00:00 - Ext ernal Mrna-lnp, Jesse Protein, Pf Covid-19 Vaccine 2020-08-12 Completed Yanely macias Moderna (Spikevax), 00:00:00 - Ext ernal Mrna-lnp, Jesse Protein, Pf Covid-19 Vaccine 2020-08-12 Completed Yanely macias (Moderna), Mrna-lnp, 00:00:00 Jesse Protein, Pf, 100 Mcg/0.5ml,IM Covid-19 Vaccine 2020-08-12 Completed Yanely macias (Moderna), Mrna-lnp, 00:00:00 Jesse Protein, Pf, 100 Mcg/0.5ml,IM Covid-19 Vaccine 2020-08-12 Completed Yanely Ludwig eybold (Moderna), Mrna-lnp, 00:00:00 Jesse Protein, Pf, 100 Mcg/0.5ml,IM Covid-19 Vaccine 2020-08-12 Completed Yanely Ludwig eybold (Moderna), Mrna-lnp, 00:00:00 Jesse Protein, Pf, 100 Mcg/0.5ml,IM Covid-19 Vaccine 2020-08-12 Completed Yanely Ludwig eybold (Moderna), Mrna-lnp, 00:00:00 Jesse Protein, Pf, 100 Mcg/0.5ml,IM Covid-19 Vaccine 2020-08-12 Completed Yanely Ludwig matiasmarisolld (Moderna), Mrna-lnp, 00:00:00 Jesse Protein, Pf, 100 Mcg/0.5ml,IM Covid-19 Vaccine 2020-08-12 Completed Yanely Ludwig matiasclaudia Moderna (Spikevax), 00:00:00 Mrna-lnp, Jesse Protein, Pf Covid-19 Vaccine 2020-08-12 Completed Yanely Ludwig matiasmarisolld Moderna (Spikevax), 00:00:00 Mrna-lnp, Jesse Protein, Pf Covid-19 Vaccine 2020-08-12 Completed Yanely Ludwig matiasclaudia Moderna (Spikevax), 00:00:00 Mrna-lnp, Jesse Protein, Pf Covid-19 Vaccine 2020-08-12 Completed Yanely Ludwig matiasclaudia Moderna (Spikevax), 00:00:00 Mrna-lnp, Jesse Protein, Pf Covid-19 Vaccine 2020-08-12 Completed Yanely Ludwig matiasbonereida Moderna (Spikevax), 00:00:00 Mrna-lnp, Jesse Protein, Pf Covid-19 Vaccine 2020-08-12 Completed Yanely Ludwig matiasmarisolld (Moderna), Mrna-lnp, 00:00:00 Jesse Protein, Pf, 100 Mcg/0.5ml,IM Covid-19 Vaccine 2020-08-12 Completed Yanely Ludwig eybold Moderna (Spikevax), 00:00:00 - Ext ernal Mrna-lnp, Jesse Protein, Pf Covid-19 Vaccine 2020-08-12 Completed Yanely gómezld Moderna (Spikevax), 00:00:00 - Ext ernal Mrna-lnp, Jesse Protein, Pf Covid-19 Vaccine 2020-08-12 Completed Yanely macias Moderna (Spikevax), 00:00:00 - Ext ernal Mrna-lnp, Jesse Protein, Pf Covid-19 Vaccine 2020-08-12 Completed Yanely macias Moderna (Spikevax), 00:00:00 - Ext ernal Mrna-lnp, Jesse Protein, Pf Covid-19 Vaccine 2020-08-12 Completed Yanely macias Moderna (Spikevax), 00:00:00 - Ext ernal Mrna-lnp, Jesse Protein, Pf Covid-19 Vaccine 2020-08-12 Completed Yanely macias (Moderna), Mrna-lnp, 00:00:00 Jesse Protein, Pf, 100 Mcg/0.5ml,IM Covid-19 Vaccine 2020-08-12 Completed Yanely macias Moderna (Spikevax), 00:00:00 - Ext ernal Mrna-lnp, Jesse Protein, Pf Covid-19 Vaccine 2020-08-12 Completed Yanely macias Moderna (Spikevax), 00:00:00 - Ext ernal Mrna-lnp, Jesse Protein, Pf Covid-19 Vaccine 2020-08-12 Completed Yanely macias Moderna (Spikevax), 00:00:00 - Ext ernal Mrna-lnp, Jesse Protein, Pf Influenza Virus 2020-04-05 Completed Yanely Ahmadi ybold Vaccine, Unspecified 00:00:00 - Ex ternal Formulation Influenza Virus 2020-04-05 Completed Yanely Ahmadi [...] Completed Yanely Se ybold Vaccine, Unspecified 00:00:00 - Ex ternal Formulation Influenza Virus 2020-04-05 Completed Yanely Se ybold Vaccine, Unspecified 00:00:00 - Ex ternal Formulation Influenza Virus 2020-04-05 Completed Yanely Se ybold Vaccine, Unspecified 00:00:00 - Ex ternal Formulation Influenza Virus 2020-04-05 Completed Yanely Se ybold Vaccine, Unspecified 00:00:00 - Ex ternal Formulation Influenza Virus 2020-04-05 Completed Yanely Se ybold Vaccine, Unspecified 00:00:00 - Ex ternal Formulation Influenza Virus 2020-04-05 Completed Yanely Se ybold Vaccine, Unspecified 00:00:00 Formulation Influenza Virus 2020-04-05 Completed Yanely Se ybold Vaccine, Unspecified 00:00:00 - Ex ternal Formulation Influenza Virus 2020-04-05 Completed Yanely Se ybold Vaccine, Unspecified 00:00:00 - Ex ternal Formulation Influenza Virus 2020-04-05 Completed Yanely Se ybold Vaccine, Unspecified 00:00:00 - Ex ternal Formulation Influenza Virus 2020-04-05 Completed [facility] 00:00[facility]00 [facility] Influenza Virus 2020-04-05 Completed [facility] Vaccine 00:00:00 [facility] Influenza Virus 2020-04-05 Completed [facility] Vaccine 00:00:00 [facility] Influenza Virus 2020-04-05 Completed [facility] Vaccine 00:00:00 [facility] Influenza Virus 2020-04-05 Completed [facility] Vaccine 00:00:00 [facility] Influenza Virus 2020-04-05 Completed [facility] Vaccine 00:00:00 [facility] Influenza Virus 2020-04-05 Completed [facility] Vaccine 00:00:00 [facility] Influenza Virus 2020-04-05 Completed [facility] Vaccine 00:00:00 [facility] Influenza Virus 2020-04-05 Completed [facility] Vaccine 00:00:00 [facility] Influenza Virus 2020-04-05 Completed [facility] Vaccine 00:00:00 [facility] Influenza Virus 2019-04-10 Completed Aynely Se ybold Vaccine, No Preserv, 00:00:00 - Ex ternal age 6 months and up Pneumococcal 2019-04-10 Completed Yanely Seybo ld Vaccine, 00:00:00 - External Polysaccharide Influenza Virus 2019-04-10 Completed Yanely Se ybold Vaccine, No Preserv, 00:00:00 age 6 months and up Pneumococcal 2019-04-10 Completed Yanely Seybo ld Vaccine, 00:00:00 Polysaccharide Influenza Virus 2019-04-10 Completed Yanely Se ybold Vaccine, No Preserv, 00:00:00 age 6 months and up Pneumococcal 2019-04-10 Completed Yanely Seybo ld Vaccine, 00:00:00 Polysaccharide Influenza Virus 2019-04-10 Completed Yanely Se ybold Vaccine, No Preserv, 00:00:00 age 6 months and up Pneumococcal 2019-04-10 Completed Yanely Seybo ld Vaccine, 00:00:00 Polysaccharide Influenza Virus 2019-04-10 Completed Yanely Se ybold Vaccine, No Preserv, 00:00:00 age 6 months and up Pneumococcal 2019-04-10 Completed Yanely Seybo ld Vaccine, 00:00:00 Polysaccharide Influenza Virus 2019-04-10 Completed Yanely Se ybold Vaccine, No Preserv, 00:00:00 age 6 months and up Pneumococcal 2019-04-10 Completed Yanely Seybo ld Vaccine, 00:00:00 Polysaccharide Influenza Virus 2019-04-10 Completed Yanely Se ybold Vaccine, No Preserv, 00:00:00 age 6 months and up Pneumococcal 2019-04-10 Completed Yanely Seybo ld Vaccine, 00:00:00 Polysaccharide Influenza Virus 2019-04-10 Completed Yanely Se ybold Vaccine, No Preserv, 00:00:00 age 6 months and up Pneumococcal 2019-04-10 Completed Yanely Seybo ld Vaccine, 00:00:00 Polysaccharide Influenza Virus 2019-04-10 Completed Yanely Se ybold Vaccine, No Preserv, 00:00:00 age 6 months and up Pneumococcal 2019-04-10 Completed Yanely Seybo ld Vaccine, 00:00:00 Polysaccharide Influenza Virus 2019-04-10 Completed Yanely Se ybold Vaccine, No Preserv, 00:00:00 age 6 months and up Pneumococcal 2019-04-10 Completed Yanely Seybo ld Vaccine, 00:00:00 Polysaccharide Influenza Virus 2019-04-10 Completed Yanely Se ybold Vaccine, No Preserv, 00:00:00 age 6 months and up Pneumococcal 2019-04-10 Completed Yanely Seybo ld Vaccine, 00:00:00 Polysaccharide Influenza Virus 2019-04-10 Completed Yanely Se ybold Vaccine, No Preserv, 00:00:00 age 6 months and up Pneumococcal 2019-04-10 Completed Yanely Seybo ld Vaccine, 00:00:00 Polysaccharide Influenza Virus 2019-04-10 Completed Yanely Se ybold Vaccine, No Preserv, 00:00:00 age 6 months and up Influenza Virus 2019-04-10 Completed Yanely Se ybold Vaccine, No Preserv, 00:00:00 - Ex ternal age 6 months and up Pneumococcal 2019-04-10 Completed Yanely Seybo ld Vaccine, 00:00:00 - External Polysaccharide Pneumococcal 2019-04-10 Completed Yanely Seybo ld Vaccine, 00:00:00 Polysaccharide Influenza Virus 2019-04-10 Completed Yanely Se ybold Vaccine, No Preserv, 00:00:00 - Ex ternal age 6 months and up Pneumococcal 2019-04-10 Completed Yanely Seybo ld Vaccine, 00:00:00 - External Polysaccharide Influenza Virus 2019-04-10 Completed Yanely Se ybold Vaccine, No Preserv, 00:00:00 - Ex ternal age 6 months and up Pneumococcal 2019-04-10 Completed Yanely Seybo ld Vaccine, 00:00:00 - External Polysaccharide Influenza Virus 2019-04-10 Completed Yanely Se ybold Vaccine, No Preserv, 00:00:00 - Ex ternal age 6 months and up Pneumococcal 2019-04-10 Completed Yanely Seybo ld Vaccine, 00:00:00 - External Polysaccharide Influenza Virus 2019-04-10 Completed Yanely Se ybold Vaccine, No Preserv, 00:00:00 - Ex ternal age 6 months and up Pneumococcal 2019-04-10 Completed Yanely Seybo ld Vaccine, 00:00:00 - External Polysaccharide Influenza Virus 2019-04-10 Completed Yanely Se ybold Vaccine, No Preserv, 00:00:00 age 6 months and up Influenza Virus 2019-04-10 Completed Yanely Se ybold Vaccine, No Preserv, 00:00:00 - Ex ternal age 6 months and up Pneumococcal 2019-04-10 Completed Yanely Seybo ld Vaccine, 00:00:00 Polysaccharide Pneumococcal 2019-04-10 Completed Yanely Seybo ld Vaccine, 00:00:00 - External Polysaccharide Influenza Virus 2019-04-10 Completed Yanely Se ybold Vaccine, No Preserv, 00:00:00 - Ex ternal age 6 months and up Pneumococcal 2019-04-10 Completed Yanely Seybo ld Vaccine, 00:00:00 - External Polysaccharide Influenza Virus 2019-04-10 Completed Yanely Se ybold Vaccine, No Preserv, 00:00:00 - Ex ternal age 6 months and up Pneumococcal 2019-04-10 Completed Yanely Seybo ld Vaccine, 00:00:00 - External Polysaccharide Pneumococcal 2019-04-10 Completed [facility] Polysaccharide, 00:00:00 [place] [facility] PPSV23 (PNEUMOVAX) Branch Influenza Virus 2019-04-10 Completed [facility] of Vaccine Quad .5 mL 00:00:00 [facility] 6+ MO Branch Pneumococcal 2019-04-10 Completed [facility] o f Polysaccharide, 00:00:00 [place] [facility] PPSV23 (PNEUMOVAX) Branch Influenza Virus 2019-04-10 Completed [facility] of Vaccine Quad .5 mL 00:00:00 [facility] 6+ MO [facility] Pneumococcal 2019-04-10 Completed [facility] o f Polysaccharide, 00:00:00 [place] [facility] PPSV23 (PNEUMOVAX) Branch Influenza Virus 2019-04-10 Completed [facility] of Vaccine Quad .5 mL 00:00:00 [facility] 6+ MO [facility] Pneumococcal 2019-04-10 Completed [facility] f Polysaccharide, 00:00:00 [place] [facility] PPSV23 (PNEUMOVAX) Branch Influenza Virus 2019-04-10 Completed [facility] of Vaccine Quad .5 mL 00:00:00 [facility] 6+ MO [facility] Pneumococcal 2019-04-10 Completed [facility] f Polysaccharide, 00:00:00 [place] [facility] PPSV23 (PNEUMOVAX) Branch Influenza Virus 2019-04-10 Completed [facility] of Vaccine Quad .5 mL 00:00:00 [facility] 6+ MO [facility] Pneumococcal 2019-04-10 Completed [facility] f Polysaccharide, 00:00:00 [place] [facility] PPSV23 (PNEUMOVAX) Branch Influenza Virus 2019-04-10 Completed [facility] of Vaccine Quad .5 mL 00:00:00 [facility] 6+ MO [facility] Pneumococcal 2019-04-10 Completed [facility] f Polysaccharide, 00:00:00 [place] [facility] PPSV23 (PNEUMOVAX) Branch Influenza Virus 2019-04-10 Completed [facility] of Vaccine Quad .5 mL 00:00:00 [facility] 6+ MO [facility] Pneumococcal 2019-04-10 Completed [facility] f Polysaccharide, 00:00:00 [place] [facility] PPSV23 (PNEUMOVAX) Branch Influenza Virus 2019-04-10 Completed [facility] of Vaccine Quad .5 mL 00:00:00 [facility] 6+ MO [facility] Pneumococcal 2019-04-10 Completed [facility] f Polysaccharide, 00:00:00 [place] [facility] PPSV23 (PNEUMOVAX) Branch Influenza Virus 2019-04-10 Completed [facility] of Vaccine Quad .5 mL 00:00:00 [facility] 6+ MO [facility] Pneumococcal 2019-04-10 Completed [facility] f Polysaccharide, 00:00:00 [place] [facility] PPSV23 (PNEUMOVAX) Branch Influenza Virus 2019-04-10 Completed [facility] of Vaccine Quad .5 mL 00:00:00 [facility] 6+ MO [facility] Covid-19 Vaccine Unknown Completed Yanely macias Moderna (Spikevax), - Ext ernal Mrna-lnp, Jesse Protein, Pf Covid-19 Vaccine Unknown Completed Yanely amcias Moderna (Spikevax), - Ext ernal Mrna-lnp, Jesse Protein, Pf Influenza Virus Unknown Completed Yanely mathias Vaccine, No Preserv, - Ex ternal age 6 months and up Influenza Virus Unknown Completed Yanely mathias Vaccine, Unspecified - Ex ternal Formulation Pneumococcal Unknown Completed Yanely Minor ld Vaccine, - External Polysaccharide Influenza Virus Unknown Completed Yanely mathias Vaccine, age 6 - External months and up COVID-19 VACCINE Unknown Completed Yanely macias PFIZER 12+ ([place] - Clinical Psychiatrist al cap) Pneumococcal Unknown Completed Yanely padron Conjugate 15 - External (Vaxneuvance) Covid-19 Vaccine Unknown Completed Yanely macias Moderna (Spikevax), - Ext ernal Mrna-lnp, Jesse Protein, Pf Covid-19 Vaccine Unknown Completed Yanely macias Moderna (Spikevax), - Ext ernal Mrna-lnp, Jesse Protein, Pf Influenza Virus Unknown Completed Yanely mathias Vaccine, No Preserv, - Ex ternal age 6 months and up Influenza Virus Unknown Completed Yanely mathias Vaccine, Unspecified - Ex ternal Formulation Pneumococcal Unknown Completed Yanely padron Vaccine, - External Polysaccharide Influenza Virus Unknown Completed Yanely mathias Vaccine, age 6 - External months and up COVID-19 VACCINE Unknown Completed Yanely macias PFIZER 12+ ([place] - Clinical Psychiatrist al cap) Pneumococcal Unknown Completed Yanely padron Conjugate 15 - External (Vaxneuvance) Vital Signs Vital Name Observation Time Observation Value Comments Source Body weight 2023-04-18 150.3 kg reported weight Yanely Minor nereida - 20:08:00 after dialysis External BMI 2023-04-18 42.54 kg/m2 Yanely Jarrett - 20:08:00 External Systolic blood 2023-01-23 155 mm[Hg] Yanely Secarlos d - pressure 14:07:00 External Diastolic blood 2023-01-23 67 mm[Hg] Yanely Minor ld - pressure 14:07:00 External Heart rate 2023-01-23 65 /min Yanely Jarrett - 14:07:00 External Body temperature 2023-01-23 36.61 Peggy Yanelybreanna benitez - 14:07:00 External Respiratory rate 2023-01-23 15 /min Yanely Bingham old - 14:07:00 External Body height 2023-01-23 188 cm Yanely Jarrett - 14:07:00 External Body weight 2023-01-23 165.563 kg Yanelybreanna Jarrett - 14:07:00 External BMI 2023-01-23 46.86 kg/m2 Yanely Jarrett - 14:07:00 External Oxygen saturation 2023-01-23 98 /min Yanely taylor - in Arterial blood 14:07:00 External by Pulse oximetry Systolic blood 2022-12-16 147 mm[Hg] Yanely Seybol d - pressure 13:46:00 External Diastolic blood 2022-12-16 83 mm[Hg] Yanely Seybo ld - pressure 13:46:00 External Body temperature 2022-12-16 36.44 Peggy Yanely Bingham old - 13:46:00 External Respiratory rate 2022-12-16 14 /min Yanely Bingham old - 13:46:00 External Body height 2022-12-16 188 cm Yanely Ahmadiybold - 13:46:00 External Body weight 2022-12-16 165.563 kg Yanely Ahmadiybold - 13:46:00 External BMI 2022-12-16 46.86 kg/m2 Yanely Ahmadiybold - 13:46:00 External Oxygen saturation 2022-12-16 99 /min Yanely Carlos bold - in Arterial blood 13:46:00 External by Pulse oximetry Systolic blood 2022-07-21 152 mm[Hg] Yanely Seybol d - pressure 19:57:00 External Diastolic blood 2022-07-21 80 mm[Hg] Yanely Ahmadiybo ld - pressure 19:57:00 External Heart rate 2022-07-21 77 /min Yanely Ahmadiybold - 19:57:00 External Body temperature 2022-07-21 36.78 Peggy Yanely Bingham old - 19:57:00 External Respiratory rate 2022-07-21 15 /min Yanely Bingham old - 19:57:00 External Body height 2022-07-21 188 cm Yanely Ahmadiybemmanuel - 19:57:00 External Body weight 2022-07-21 166.017 kg Yanely Ahmadiybold - 19:57:00 External BMI 2022-07-21 46.99 kg/m2 Yanely Ahmadiybold - 19:57:00 External Systolic blood 2022-05-16 194 mm[Hg] Yanely Seybol d - pressure 16:46:00 External Diastolic blood 2022-05-16 93 mm[Hg] Yanely Seybo ld - pressure 16:46:00 External Heart rate 2022-05-16 64 /min Yanely Ahmadiybold - 16:46:00 External Body temperature 2022-05-16 36.67 Peggy Yanely Bingham old - 16:46:00 External Respiratory rate 2022-05-16 18 /min Yanely Seyb old - 16:46:00 External Body height 2022-05-16 188 cm Yanely Ahmadiybold - 16:46:00 External Body weight 2022-05-16 165.109 kg Yanely Ahmadiybold - 16:46:00 External BMI 2022-05-16 46.73 kg/m2 Yanely Seybold - 16:46:00 External Systolic blood 2021-08-25 148 mm[Hg] Yanely Seybol d pressure 12:58:00 Diastolic blood 2021-08-25 78 mm[Hg] Yanely Seybo ld pressure 12:58:00 Heart rate 2021-08-25 78 /min Yanely Seybold 12:58:00 Body temperature 2021-08-25 35.67 Peggy Yanely Ahmadiyb old 12:58:00 Respiratory rate 2021-08-25 16 /min Yanely Seyb old 12:58:00 Body height 2021-08-25 188 cm Yanely Seybold 12:58:00 Body weight 2021-08-25 160.12 kg Yanely Seybold 12:58:00 BMI 2021-08-25 45.32 kg/m2 Yanely Seybold 12:58:00 Oxygen saturation 2021-08-25 100 /min Yanely taylor in Arterial blood 12:58:00 by Pulse oximetry Systolic blood 2021-08-09 162 mm[Hg] Yanely Seybol d pressure 16:54:00 Diastolic blood 2021-08-09 90 mm[Hg] Yanely Seybo ld pressure 16:54:00 Heart rate 2021-08-09 78 /min Yanely Seybold 16:54:00 Body temperature 2021-08-09 36.61 Peggy Yanely Seyb old 16:54:00 Respiratory rate 2021-08-09 16 /min Yanely Seyb old 16:54:00 Body height 2021-08-09 188 cm Yanely Seybold 16:54:00 Body weight 2021-08-09 156.491 kg Yanely Seybold 16:54:00 BMI 2021-08-09 44.30 kg/m2 Yanely Seybold 16:54:00 Oxygen saturation 2021-08-09 98 /min Yanely Carlos bold in Arterial blood 16:54:00 by Pulse oximetry Systolic blood 2021-03-15 180 mm[Hg] Yanely Seybol d pressure 19:49:00 Diastolic blood 2021-03-15 106 mm[Hg] Yanely Seybo ld pressure 19:49:00 Heart rate 2021-03-15 76 /min Yanely Seybold 19:49:00 Body temperature 2021-03-15 36.44 Peggy Yanely Bingham old 19:49:00 Respiratory rate 2021-03-15 16 /min Yanely Bingham old 19:49:00 Body height 2021-03-15 188 cm Yanely Ahmadiybold 19:49:00 Body weight 2021-03-15 156.491 kg Yanely Ahmadiybold 19:49:00 BMI 2021-03-15 44.30 kg/m2 Yanely Seybold 19:49:00 Systolic blood 2021-02-17 163 mm[Hg] Yanely Seybol d pressure 19:51:00 Diastolic blood 2021-02-17 92 mm[Hg] Yanely Seybo ld pressure 19:51:00 Heart rate 2021-02-17 72 /min Yanely Ahmadiybold 19:51:00 Body temperature 2021-02-17 36.78 Peggy Yanely Bingham old 19:51:00 Respiratory rate 2021-02-17 16 /min Yanely Bingham old 19:51:00 Body height 2021-02-17 185.4 cm Yanely Ahmadiybold 19:51:00 Body weight 2021-02-17 154.223 kg Yanely Ahmadiybold 19:51:00 BMI 2021-02-17 44.86 kg/m2 Yanely Ahmadiybold 19:51:00 Systolic blood 2020-06-19 156 mm[Hg] University of pressure 17:39:00 [facility] Diastolic blood 2020-06-19 92 mm[Hg] University o f pressure 17:39:00 [facility] Heart rate 2020-06-19 86 /min University of 17:31:00 [facility] Respiratory rate 2020-06-19 19 /min University of 17:31:00 [facility] Body height 2020-06-19 185.4 cm University of 17:31:00 [facility] Body weight 2020-06-19 150.685 kg University of 17:31:00 [facility] BMI 2020-06-19 43.83 kg/m2 [facility] 17:31:00 [facility] Oxygen saturation 2020-06-19 95 /min [facility] Arterial blood 17:31:00 [facility] by Pulse oximetry Branch Procedures Procedure Date / Time Performing Clinician Source Performed AUTHORIZATION FOR 2022-06-02 06:01:00 Doctor Unassigned, No [facility] RELEASE OF PHI Name Medical Branch REAGENT STRIP/BLOOD 2022-05-16 00:00:00 Outside, Reported Yanely Ahmadiybold - GLUCOSE External AUTHORIZATION FOR 2022-05-03 06:01:00 [facility] AUTHORIZATION FOR 2022-04-27 06:01:00 [facility] Branch REAGENT STRIP/BLOOD 2021-08-09 16:57:00 Krystyna Johnson eybold GLUCOSE REAGENT STRIP/BLOOD 2021-03-15 20:00:00 Krystyna Johnson eybold GLUCOSE MEDICAL 2021-02-22 05:01:00 Doctor Unassigned, No [facility] RELEASE/CLEARANCE FORMS Name Medical Branch ME ELECTROCARDIOGRAM, 2020-06-19 17:36:18 [facility] Encounters Start End Encounter Admission Attending Care Care Encounter Source Date/Time Date/Time Type Type Clinicians Facility Department ID 2023-05-16 2023-05-16 Outpatient YANELY ROGERS [id number] Yanely 14:00:00 14:00:00 LARA Seybol d 2023-05-15 2023-05-15 Outpatient JACKY MATHEW [id number] Yanely 08:30:00 08:30:00 Seybol d 2023-05-01 2023-05-01 Outpatient YANELY PRADO [id number] Yanely 10:30:00 10:30:00 DAX Seybol d 2023-05-01 2023-05-01 Outpatient KRYSTYNA JOHNSON [id number] Yanely 09:45:00 09:45:00 Seybol d 2023-04-25 2023-04-25 Outpatient YANELY PRADO [id number] Yanely 09:30:00 09:30:00 DAX Seybol d 2023-04-18 2023-04-18 Outpatient ROGERS YANELY BRUCE [id number] Yanely 14:00:00 14:00:00 LARA Seybol d 2023-04-11 2023-04-11 Outpatient YANELY PRADO [id number] Yanely 11:30:00 11:30:00 DAX Seybol d 2023-04-07 2023-04-07 Outpatient YANELY BRUCE [id number] Yanely 00:00:00 00:00:00 Seybol d 2023-04-04 2023-04-04 Outpatient YANELY BRUCE [id number] Ynaely 00:00:00 00:00:00 Seybol d 2023-03-29 2023-03-29 Outpatient YANELY BRUCE [id number] Yanely 00:00:00 00:00:00 Seybol d 2023-03-27 2023-03-27 Outpatient KRYSTYNA JOHNSON [id number] Yanely 00:00:00 00:00:00 Seybol d 2023-03-27 2023-03-27 Outpatient YANELY PRADO [id number] Yanely 00:00:00 00:00:00 DAX Seybol d 2023-03-22 2023-03-22 Outpatient YANELY ROGERS [id number] Yanely 13:30:00 13:30:00 LARA Seybol d 2023-03-22 2023-03-22 Outpatient YANELY BRUCE [id number] Yanely 00:00:00 00:00:00 Seybol d 2023-03-22 2023-03-22 Outpatient YANELY RODRIGUEZ [id number] Yanely 00:00:00 00:00:00 LETHA Seybol d 2023-03-13 2023-03-13 Outpatient YANELY PRADO [id number] Yanely 00:00:00 00:00:00 DAX Seybol d 2023-03-13 2023-03-13 Outpatient YANELY RODRIGUEZ [id number] Yanely 00:00:00 00:00:00 LETHA Seybol d 2023-03-03 2023-03-03 Outpatient YANELY OJEDA [id number] Yanely 08:40:00 08:40:00 ROGELIO Seybol d 2023-03-03 2023-03-03 Outpatient YANELY PRADO [id number] Yanely 00:00:00 00:00:00 DAX Seybol d 2023-03-03 2023-03-03 Outpatient YANELY BRUCE [id number] Yanely 00:00:00 00:00:00 Seybol d 2023-02-26 2023-02-26 Outpatient KRYSTYNA JOHNSON YANELY BRUCE [id number] Yanely 00:00:00 00:00:00 Seybol d 2023-02-22 2023-02-22 Outpatient YANELY BRUCE [id number] Yanely 00:00:00 00:00:00 Seybol d 2023-02-20 2023-02-20 Outpatient YANELY BRUCE [id number] Yanely 00:00:00 00:00:00 Seybol d 2023-02-20 2023-02-20 Outpatient PREZAYANELY Ludwig [id number] Yanely 00:00:00 00:00:00 DAX Seybol d 2023-02-19 2023-02-19 Outpatient ISABELLYANELY [id number] Yanely 00:00:00 00:00:00 CARLOS Seybol d 2023-02-17 2023-02-17 Outpatient YANELY PRADO [id number] Yanely 00:00:00 00:00:00 DAX Seybol d 2023-02-10 2023-02-10 Outpatient YANELY OJEDA [id number] Yanely 08:10:00 08:10:00 ROGELIO Seybol d 2023-02-08 2023-02-08 Outpatient YANELY PRADO [id number] Yanely 00:00:00 00:00:00 DAX Seybol d 2023-02-08 2023-02-08 Outpatient YANELY PRADO [id number] Yanely 00:00:00 00:00:00 DAX Seybol d 2023-02-08 2023-02-08 Outpatient YANELY BRUCE [id number] Yanely 00:00:00 00:00:00 Seybol d 2023-02-07 2023-02-07 Outpatient YANELY PRADO [id number] Yanely 00:00:00 00:00:00 DAX Seybol d 2023-02-02 2023-02-02 Outpatient YANELY HALE [id number] Yanely 09:00:00 09:00:00 PARRISH Seybo ld 2023-02-02 2023-02-02 Outpatient YANELY BRUCE [id number] Yanely 00:00:00 00:00:00 Seybol d 2023-02-01 2023-02-01 Outpatient YANELY PRADO [id number] Yanely 00:00:00 00:00:00 DAX Seybol d 2023-01-31 2023-01-31 Outpatient LAB90 YANELY BRUCE [id number] Yanely 08:40:00 08:40:00 Seybol d 2023-01-30 2023-01-30 Outpatient TORRIE Payton [id number] Yanely 09:00:00 09:00:00 Seybol d 2023-01-30 2023-01-30 Outpatient YANELY OJEDA [id number] Yanely 08:50:00 08:50:00 ROGELIO Seybol d 2023-01-25 2023-01-25 Outpatient YANELY RODRIGUEZ [id number] Yanely 00:00:00 00:00:00 LETHA Seybol d 2023-01-23 2023-01-23 Outpatient YANELY PRADO [id number] Yanely 09:15:00 09:15:00 DAX Seybol d 2023-01-16 2023-01-16 Outpatient KRYSTYNA JOHNSON [id number] Yanely 10:45:00 10:45:00 Seybol d 2022-12-22 2022-12-22 Outpatient YANELY RODRIGUEZ [id number] Yanely 00:00:00 00:00:00 LETHA Seybol d 2022-12-20 2022-12-20 Outpatient PREZAS YANELY BRCUE [id number] Yanely 00:00:00 00:00:00 DAX Seybol d 2022-12-18 2022-12-18 Outpatient PREKIMBERLY YANELY BRUCE [id number] Yanely 00:00:00 00:00:00 DAX Seybol d 2022-12-16 2022-12-16 Outpatient LAB90 YANELY BRUCE [id number] Yanely 09:50:00 09:50:00 Seybol d 2022-12-16 2022-12-16 Outpatient PREZASYANELY [id number] Yanely 09:00:00 09:00:00 DAX Seybol d 2022-12-16 2022-12-16 Outpatient PREYANELY HARRIS [id number] Yanely 00:00:00 00:00:00 DAX Seybol d 2022-12-09 2022-12-09 Outpatient LAB90 YANELY BRUCE [id number] Yanely 09:10:00 09:10:00 Seybol d 2022-12-09 2022-12-09 Outpatient MYKELSEYONL YANELY BRUCE [id number] Yanely 00:00:00 00:00:00 MD KATHY Seybol d 2022-11-18 2022-11-18 Outpatient PREYANELY HARRIS [id number] Yanely 15:15:00 15:15:00 DAX Seybol d 2022-11-14 2022-11-14 Outpatient YANELY RODRIGUEZ [id number] Yanely 00:00:00 00:00:00 LETHA Seybol d 2022-11-09 2022-11-09 Outpatient YANELY RODRIGUEZ [id number] Yanely 00:00:00 00:00:00 LETHA Seybol d 2022-11-07 2022-11-07 Outpatient KRYSTYNA JOHNSON [id number] Yanely 09:15:00 09:15:00 Seybol d 2022-10-25 2022-10-25 Outpatient KRYSTYNA JONHSON [id number] Yanely 00:00:00 00:00:00 Seybol d 2022-10-25 2022-10-25 Outpatient ELIZABETHKRYSTYNA YANELY BRUCE [id number] Yanely 00:00:00 00:00:00 Seybol d 2022-10-19 2022-10-19 Outpatient PREYANELY HARRIS [id number] Yanely 00:00:00 00:00:00 DAX Seybol d 2022-10-11 2022-10-11 Outpatient PREZAYANELY Ludwig [id number] Yanely 00:00:00 00:00:00 DAX Seybol d 2022-10-07 2022-10-07 Outpatient LAB90 YANELY BRUCE [id number] Yanely 08:10:00 08:10:00 Seybol d 2022-10-04 2022-10-04 Outpatient YANELY PRADO [id number] Yanely 00:00:00 00:00:00 DAX Seybol d 2022-09-19 2022-09-19 Outpatient YANELY RODRIGUEZ [id number] Yanely 00:00:00 00:00:00 LETHA Seybol d 2022-09-14 2022-09-14 Outpatient YANELY RODRIGUEZ [id number] Yanely 00:00:00 00:00:00 LETHA Seybol d 2022-08-25 2022-08-25 Outpatient ELIZABETHKRYSTYNA YANELY BRUCE [id number] Yanely 00:00:00 00:00:00 Seybol d 2022-08-14 2022-08-14 Outpatient ELIZABETH KRYSTYNA YANELY BRUCE [id number] Yanely 00:00:00 00:00:00 Seybol d 2022-08-04 2022-08-04 Outpatient YANELY RODRIGUEZ [id number] Yanely 00:00:00 00:00:00 LETHA Seybol d 2022-07-25 2022-07-25 Outpatient YANELY CONNELLY [id number] Yanely 15:00:00 15:00:00 ROBYN Seybol d 2022-07-22 2022-07-22 Outpatient YANELY RODRIGUEZ [id number] Yanely 00:00:00 00:00:00 LETHA Seybol d 2022-07-21 2022-07-21 Outpatient YANELY CONNELLY [id number] Yanely 14:00:00 14:00:00 ROBYN Seybol d 2022-07-21 2022-07-21 Outpatient MARICEL YANELY BRUCE [id number] Yanely 00:00:00 00:00:00 ROBYN Seybol d 2022-07-11 2022-07-11 Outpatient YANELY BRUCE [id number] Yanely 00:00:00 00:00:00 Seybol d 2022-07-07 2022-07-07 Outpatient YANELY BRUCE [id number] Yanely 00:00:00 00:00:00 Seybol d 2022-06-28 2022-06-28 Outpatient YANELY PRADO [id number] Yanely 00:00:00 00:00:00 DAX Seybol d 2022-06-21 2022-06-21 Outpatient KRYSTYNA JOHNSON [id number] Yanely 00:00:00 00:00:00 Seybol d 2022-06-16 2022-06-16 Outpatient LAB90 YANELY BRUCE [id number] Yanely 08:55:00 08:55:00 Seybol d 2022-06-15 2022-06-15 Outpatient YANELY PRADO [id number] Yanely 00:00:00 00:00:00 DAX Seybol d 2022-06-03 2022-06-03 Outpatient YANELY OJEDA [id number] Yanely 09:20:00 09:20:00 ROGELIO Seybol d 2022-06-02 2022-06-02 Orders Doctor COLLAZO [id number] Univers 00:00:00 00:00:00 Only Unassigned, ANT [id number] [id number] Aric as [id number] [facility] nayan [address] 2022-05-18 2022-05-18 Outpatient YANELY RODRIGUEZ [id number] Yanely 00:00:00 00:00:00 LETHA Seybol d 2022-05-16 2022-05-16 Outpatient KRYSTYNA JOHNSON YANELY BRUCE [id number] Yanely 10:45:00 10:45:00 Seybol d 2022-05-11 2022-05-11 Outpatient YANELY RODRIGUEZ [id number] Yanely 00:00:00 00:00:00 LETHA Seybol d 2022-05-11 2022-05-11 Outpatient YANELY BRUCE [id number] Yanely 00:00:00 00:00:00 Seybol d 2022-05-04 2022-05-04 Outpatient YANELY SMITH [id number] [place] 09:25:00 09:25:00 BEVERLY Seybol d 2022-05-04 2022-05-04 Outpatient YANELY RODRIGUEZ [id number] [place] 00:00:00 00:00:00 LETHA Seybol d 2022-05-03 2022-05-03 Orders Doctor VALE 1.2.840.114 [id number] Univers 00:00:00 00:00:00 Only Unassigned, ANT 350.1.13.10 ity of [place] [facility] 4.2.7.2.686 Aric as [phone] [address] 2022-04-27 2022-04-27 Orders Doctor VALE Marquez2.840.114 [id number] Univers 00:00:00 00:00:00 Only Unassigned, ANT 350.1.13.10 ity of [place] [facility] 4.2.7.2.686 Aric as [phone] [address] 2022-04-22 2022-04-22 Outpatient YANELY OJEDA [id number] [place] 08:50:00 08:50:00 ROGELIO Seybol d 2022-04-21 2022-04-21 Outpatient YANELY SMITH [id number] [place] 09:10:00 09:10:00 BEVERLY Seybol d 2022-04-11 2022-04-11 Outpatient YANELY RODRIGUEZ [id number] [place] 00:00:00 00:00:00 LETHA Seybol d 2022-04-08 2022-04-08 Outpatient LAB90 YANELY BRUCE [id number] [place] 08:00:00 08:00:00 Seybol d 2022-04-08 2022-04-08 Outpatient YANELY PRADO [id number] [place] 00:00:00 00:00:00 DAX Seybol d 2022-03-11 2022-03-11 Outpatient UDHEATHERUK YANELY BRUCE [id number] [place] 09:10:00 09:10:00 ROGELIO Seybol d 2022-03-10 2022-03-10 Outpatient 1, OPTICAL YANELY BRUCE [id number] [place] 09:05:00 09:05:00 Seybol d 2022-03-10 2022-03-10 Outpatient YANELY BLANC [id number] [place] 08:45:00 08:45:00 DIRK Seybol d 2022 2022 Outpatient YANELY RODRIGUEZ [id number] [place] 00:00:00 00:00:00 LETHA Seybol d 2022-03-03 2022-03-03 Outpatient LAB90 YANELY BRUCE [id number] [place] 08:25:00 08:25:00 Seybol d 2022-03-03 2022-03-03 Outpatient YANELY PRADO [id number] [place] 00:00:00 00:00:00 DAX Seybol d 2022-02-25 2022-02-25 Outpatient YANELY RODRIGUEZ [id number] [place] 09:00:00 09:00:00 LETHA Seybol d 2022-02-16 2022-02-16 Outpatient YANELY BRUCE [id number] [place] 07:30:00 07:30:00 Seybol d 2022-02-10 2022-02-10 Office GENET BLANC 1.2.840.114 [id number] [place] 08:15:00 08:15:00 Visit [facility] 350.1.13.13 Se ybold 1.2.7.2.686 [id number] 2022-02-09 2022-02-09 Outpatient YANELY BLANC [id number] [place] 06:30:00 06:30:00 DIRK Seybol d 2022-02-09 2022-02-09 Outpatient SENIAYANELY [id number] [place] 00:00:00 00:00:00 NAOMY Seybol d 2022-02-03 2022-02-03 Outpatient COVID-PFIZE YANELY BRUCE [id number] Yan[place] 10:00:00 10:00:00 R VACC, Seybol d DU 2022-02-03 2022-02-03 Office Burak Rodriguez 1.2.840.114 [id number] [place] 09:00:00 09:15:00 Visit Letha Bennett 350.1.13.13 Se stew Latifyi 1.2.7.2.686 [id number] 2022-02-03 2022-02-03 Outpatient YANELY NOEL [id number] [place] 00:00:00 00:00:00 CARLOS Seybol d 2022-01-28 2022-01-28 Office GUILLERMINA Ojeda 1.2.840.114 [id number] Yanely 08:00:00 08:10:00 Visit [facility] 350.1.13.13 Seybold DIAGNOSTI 1.2.7.2.686 [facility] [id number] 2022-01-28 2022-01-28 Outpatient XIN, YANELY BRUCE [id number] Yan[place] 07:50:00 07:50:00 [facility] Seybol d 2022-01-25 2022-01-25 Outpatient 1, OPTICAL YANELY BRUCE [id number] [place] 08:30:00 08:30:00 Seybol d 2022-01-25 2022-01-25 Office GENET Blanc 1.2.840.114 [id number] [place] 08:15:00 08:30:00 Visit [facility] 350.1.13.13 S matiasbonereida 1.2.7.2.686 [id number] 2022-01-24 2022-01-24 Outpatient LAB47 YANELY BRUCE [id number] [place] 11:25:00 11:25:00 Seybol d 2022-01-24 2022-01-24 Office Elizabeth Krystyna RADU 1.2.840.114 [id number] Yan[place] 10:45:00 11:00:00 Visit M 350.1.13.13 Se ybold 1.2.7.2.686 [id number] 2022-01-19 2022-01-19 [facility] [id number] [place] 08:45:00 08:45:00 Seybol d 2022-01-19 2022-01-19 Office RADU NOEL 1.2.840.114 [id number] [place] 08:15:00 08:15:00 Visit CARLOS 350.1.13.13 Se ybold 1.2.7.2.686 [id number] 2022-01-04 2022-01-04 Office GENET Blanc 1.2.840.114 [id number] [place] 08:00:00 08:15:00 Visit Dirk OJ 350.1.13.13 S eybold 1.2.7.2.686 [id number] 2022-01-04 2022-01-04 Outpatient YANELY BLANC [id number] [place] 08:00:00 08:00:00 DIRK Seybol d 2022-01-04 2022-01-04 Outpatient YANELY BLANC [id number] [place] 00:00:00 00:00:00 DIRK Seybol d 2022-01-03 2022-01-03 Outpatient YANELY BLANC [id number] [place] 07:30:00 07:30:00 DIRK Seybol d 2022-01-03 2022-01-03 Outpatient YANELY BACA [id number] [place] 00:00:00 00:00:00 NATALIE padron 2021-12-24 2021-12-24 Education TUCKER HAYNES 1.2.840.114 [id number] Yan[place] 10:00:00 10:00:00 350.1.13.13 Se ybold 1.2.7.2.686 [id number] 2021-12-24 2021-12-24 Outpatient YANELY LYLES [id number] [place] 00:00:00 00:00:00 LAWANDA Ahmadiybol d 2021-12-21 2021-12-21 Office GENET Lyles 1.2.840.114 [id number] [place] 09:00:00 09:30:00 Visit Lawanda [facility] 350.1.13.13 Seybold 1.2.7.2.686 [id number] 2021-12-20 2021-12-20 Outpatient YANELY RODRIGUEZ [id number] [place] 00:00:00 00:00:00 LETHA Seybol d 2021-12-17 2021-12-17 Office GUILLERMINA Ojeda [place] 1.2.840.114 [id number] Yan[place] 08:00:00 08:10:00 Visit [facility] 350.1.13.13 Seybold DIAGNOSTI 1.2.7.2.686 [facility] [id number] 2021-12-08 2021-12-08 Outpatient YANELY ORDRIGUEZ [id number] [place] 00:00:00 00:00:00 LETHA Seybol d 2021-11-23 2021-11-23 Outpatient YANELY RODRIGUEZ [id number] [place] 00:00:00 00:00:00 LETHA Seybol d 2021-11-12 2021-11-12 Office GUILLERMINA Ojeda [place] 1.2.840.114 [id number] Yan[place] 10:30:00 10:40:00 Visit [place] [address]67.1.13.13 Seybold DIAGNOSTI 1.2.7.2.686 [facility] [id number] 2021-11-12 2021-11-12 Outpatient YANELY OJEDA [id number] [place] 08:30:00 08:30:00 ROGELIO Seybol d 2021-11-12 2021-11-12 Outpatient YANELY OJEDA [id number] [place] 08:10:00 08:10:00 ROGELIO Seybol d 2021-11-102021-11-10 Outpatient KRYSTYNA JOHNSON YANELY BRUCE [id number] Yanely 00:00:00 00:00:00 Seybol d 2021-11-10 2021-11-10 Outpatient YANELY RODRIGUEZ [id number] [place] 00:00:00 00:00:00 LETHA Seybol d 2021-11-05 2021-11-05 Outpatient YANELY LYLES [id number] [place] 08:00:00 08:00:00 LAWANDA Seybol d 2021-11-04 2021-11-04 Outpatient KRYSTYNA JOHNSON YANELY BRUCE [id number] Yan[place] 00:00:00 00:00:00 Seybol d 2021-10-29 2021-10-29 Office GUILLERMINA Blanc [id number] [id number] Yan[place] 08:45:00 09:00:00 Visit Dirk [facility] 350.1.13.13 Seybold DIAGNOSTI 1.2.7.2.686 [facility] [id number] 2021-10-20 2021-10-20 Outpatient YANELY RODRIGUEZ [id number] [place] 00:00:00 00:00:00 LETHA Seybol d 2021-10-20 2021-10-20 Outpatient YANELY RODRIGUEZ [id number] [place] 00:00:00 00:00:00 LETHA Seybol d 2021-09-27 2021-09-27 [facility] Vazquez [facility] 1.2.840.[id number] [place] [address] 00:00:00 00:00:00 [facility] 350.1.13.10 [facility] 4.2.7.2.686 [place] [facility] [id number] Ia dical [facility] 059 [facility] 2021-09-24 2021-09-24 Outpatient YANELY LAUREN [id number] [place] 08:25:00 08:25:00 [facility] Seybol d 2021-09-24 2021-09-24 Office GUILLERMINA Ojeda 1.2.840.114 [id number] Yan[place] 08:10:00 08:20:00 [facility] 350.1.13.13 Seybold DIAGNOSTI 1.2.7.2.686 [facility] [id number] 2021-09-23 2021-09-23 Outpatient YANELY LYLES [id number] [place] 09:30:00 09:30:00 LAWANDA Seybol d 2021-09-15 2021-09-15 Outpatient YANELY RODRIGUEZ [id number] [place] 00:00:00 00:00:00 LETHA Seybol d 2021-09-09 2021-09-09 Outpatient YANELY RODRIGUEZ [id number] [place] 00:00:00 00:00:00 LETHA Seybol d 2021-08-27 2021-08-27 Outpatient YANELY CUTLER [id number] [place] 00:00:00 00:00:00 CHELLE Seybol d 2021-08-25 2021-08-25 Outpatient LAB90 YANELY BRUCE [id number] [place] 09:05:00 09:05:00 Seybol d 2021-08-25 2021-08-25 Office Burak Rodriguez 1.2.840.114 [id number] [place] 08:00:00 08:45:00 Visit Letha Bennett 350.1.13.13 Se ybemmanuel Somogyi 1.2.7.2.686 [id number] 2021-08-17 2021-08-17 Outpatient LAB90 YANELY BRUCE [id number] [place] 10:00:00 10:00:00 Seybol d 2021-08-17 2021-08-17 Outpatient LAB90 YANELY BRUCE [id number] [place] 09:25:00 09:25:00 Seybol d 2021-08-17 2021-08-17 RefDIOGO Sanz 1.2.840.[id number] [place] [address] 00:00:00 00:00:00 Domenica PEÑALOZA 350.1.13.10 [facility] 4.2.7.2.686 Muna JONES [id number] [place] [id number] [facility] 2021-08-16 2021-08-16 Refill DIOGO Arias 1.2.840.114 [id number] Univers 00:00:00 00:00:00 Domenica [place] 350.1.13.10 ity [facility] 4.2.7.2.[place] [id number] Ia dical NAL 059 [facility] 2021-08-13 2021-08-13 Office [facility] 1.2.840.114 [id number] Yan[place] 09:40:00 09:50:00 Visit [facility] 350.1.13.13 Seybold DIAGNOSTI 1.2.7.2.686 C CENTER [id number] 2021-08-09 2021-08-09 Office Krystyna Johnson 1.2.840.114 [id number] [place] 10:45:00 11:00:00 Visit 350.1.13.13 Se ybold 1.2.7.2.686 [id number] 2021-08-03 2021-08-03 Outpatient YANELY NOEL [id number] [place] 00:00:00 00:00:00 CARLOS Seybol d 2021-08-03 2021-08-03 Outpatient YANELY RODRIGUEZ [id number] [place] 00:00:00 00:00:00 LETHA Seybol d 2021-08-03 2021-08-03 Outpatient KRYSTYNA JOHNSON [id number] [place] 00:00:00 00:00:00 Seybol d 2021-08-03 2021-08-03 Outpatient YANELY RODRIGUEZ [id number] [place] 00:00:00 00:00:00 LETHA Seybol d 2021-08-03 2021-08-03 Refill Vazquez [facility] 1.2.840.114 [id number] Univers 00:00:00 00:00:00 Qiangsteve [place] 350.1.13.10 ity of [place]2.7.2.[place] [id number] Ia dical NAL 059 [facility] 2021-07-02 2021-07-02 Office [facility] 1.2.840.114 [id number] Yan[place] 08:30:00 08:40:00 Visit [place] [address].1.13.13 Seybold DIAGNOSTI 1.2.7.2.686 CENTER [id number] 2021-06-23 2021-06-23 Outpatient LAB90 YANELY BRUCE [id number] [place] 08:20:00 08:20:00 Seybol d 2021-06-22 2021-06-22 Outpatient Jose ARIAS [facility] [id number] Univers 11:20:00 11:20:00 DOMENICA gandhi o siri [facility] 2021-06-14 2021-06-14 Outpatient KRYSTYNA JOHNSON [id number] Yan[place] 10:15:00 10:15:00 Seybol d 2021-05-21 2021-05-21 Office GUILLERMINA Ojeda 1.2.840.114 [id number] Yan[place] 08:10:00 08:20:00 Visit [place] [address].1.13.13 Seybold DIAGNOSTI 1.2.7.2.686 CENTER [id number] 2021-05-12 2021-05-12 Outpatient YANELY NOEL [id number] [place] 00:00:00 00:00:00 CARLOS Seybol d 2021-05-11 2021-05-11 Outpatient YANELY NOEL [id number] [place] 09:00:00 09:00:00 CARLOS Seybol d 2021-05-11 2021-05-11 Outpatient YANELY RODRIGUEZ [id number] [place] 00:00:00 00:00:00 LETHA Seybol d 2021-05-06 2021-05-06 Outpatient TRED45 YANELY BRUCE [id number] [place] 15:15:00 15:15:00 Seybol d 2021-05-06 2021-05-06 Outpatient SWAB, FBMDC YANELY BRUCE [id number] [place] 15:00:00 15:00:00 Seybol d 2021-05-06 2021-05-06 Outpatient NVJ27-MHM YANELY BRUCE [id number] [place] 15:00:00 15:00:00 Seybol d 2021-05-05 2021-05-05 Outpatient ISABELLYANELY [id number] [place] 00:00:00 00:00:00 CARLOS Seybol d 2021-05-03 2021-05-03 Outpatient YANELY BRUCE [id number] [place] 00:00:00 00:00:00 Seybol d 2021-05-03 2021-05-03 Outpatient YANELY GUPTA [id number] [place] 00:00:00 00:00:00 NARCISO Seybol d 2021-04-23 2021-04-23 Office tachoGUILLERMINA alexander [place] 1.2.840.114 [id number] Yan[place] 08:00:00 08:10:00 Visit [place] [address]...13 Seybold DIAGNOSTI 1.2.7.2.686 CENTER [id number] 2021-04-19 2021-04-19 Outpatient TAHIRA BRUCE [id number] [place] 00:00:00 00:00:00 MD KATHY Seybol d 2021-04-08 2021-04-08 Outpatient YANELY BRUCE [id number] [place] 14:00:00 14:00:00 Seybol d 2021-04-06 2021-04-06 Outpatient YANELY RODRIGUEZ [id number] [place] 00:00:00 00:00:00 LETHA Seybol d 2021-04-01 2021-04-01 Outpatient YANELY GUPTA [id number] [place] 00:00:00 00:00:00 NARCISO Seybol d 2021-03-19 2021-03-19 Office LaurenGUILLERMINA avery [place] 1.2.840.114 [id number] Yan[place] 09:01:05 09:11:05 Visit [place] [address]...13 Seybold DIAGNOSTI 1.2.7.2.686 CENTER [id number] 2021-03-18 2021-03-18 Outpatient YANELY LYLES [id number] [place] 00:00:00 00:00:00 LAWANDA Seybol d 2021-03-17 2021-03-17 Outpatient KRYSTYNA JOHNSON YANELY BRUCE [id number] [place] 00:00:00 00:00:00 Seybol d 2021-03-16 2021-03-16 Outpatient KRYSTYNA JOHNSON YANELY BRUCE [id number] Yan[place] 00:00:00 00:00:00 Seybol d 2021-03-15 2021-03-15 Office Krystyna Johnson 1.2.840.114 [id number] Yan[place] 14:42:50 15:12:50 Visit 350.1.13.13 Se ybold 1.2.7.2.686 [id number] 2021-02-26 2021-02-26 Outpatient YANELY NOEL [id number] [place] 00:00:00 00:00:00 CARLOS Seybol d 2021-02-22 2021-02-22 Telephone DIOGO Arias 1.2.916.821 [id number] Univers 00:00:00 00:00:00 Domenica Peñaloza 350.1.13.10 ity of [place].2.[place] [phone] Ia dical [facility] 2021-02-22 2021-02-22 Orders Doctor VALE 1.2.840.114 [id number] Univers 00:00:00 00:00:00 Only Unassigned, ANT 350.1.13.10 ity of [place] [facility] 4.2.7.2.686 Aric as [phone] [address] 2021-02-19 2021-02-19 Telemedici ANTHONY Lyles 1.2.840.114 [id number] Yanely 07:47:03 08:22:01 ne Lawanda DU 350.1.13.13 Seybold 1.2.7.2.686 [id number] 2021-02-18 2021-02-18 Outpatient YANELY RODRIGUEZ [id number] [place] 00:00:00 00:00:00 LETHA Seybol d 2021-02-18 2021-02-18 Outpatient YANELY NICOLE [id number] [place] 00:00:00 00:00:00 KAYLIE Seybol d 2021-02-18 2021-02-18 Outpatient YANELY NOEL [id number] [place] 00:00:00 00:00:00 CARLOS Seybol d 2021-02-17 2021-02-17 Outpatient LAB47 YANELY BRUCE [id number] [place] 15:45:00 15:45:00 Seybol d 2021-02-17 2021-02-17 Office RADU Noel 1.2.840.114 [id number] [place] 14:40:10 14:55:10 Visit Carlos Ludwig 350.1.13.13 Se ybold 1.2.7.2.686 [id number] 2021-02-17 2021-02-17 Outpatient TUCKER HAYNES [id number] [place] 14:30:00 14:30:00 Seybol d 2021-02-17 2021-02-17 Outpatient YANELY NOEL [id number] [place] 00:00:00 00:00:00 CARLOS Seybol d 2021-02-12 2021-02-12 Office GUILLERMINA Ojeda ERI[place] 1.2.840.114 [id number] Yanely 13:22:59 13:32:59 Visit Rogeliochel [place] 350.1.13.13 Seybold DIAGNOSTI 1.2.7.2.686 [facility] [id number] 2021-02-09 2021-02-09 Outpatient YANELY MARROQUIN [id number] [place] 13:20:00 13:20:00 DIANA Seybol d 2021-01-12 2021-01-12 Outpatient YANELY RODRIGUEZ [id number] [place]ely 00:00:00 00:00:00 LETHA Seybol d 2021-01-05 2021-01-05 Outpatient LAB90 YANELY BRUCE [id number] [place] 08:10:00 08:10:00 Seybol d 2020-12-28 2020-12-28 Outpatient YANELY RODRIGUEZ [id number] [place] 13:30:00 13:30:00 LETHA Seybol d 2020-08-07 2020-08-07 Outpatient [facility] [id number] Univers 13:05:00 13:05:00 [facility] 2020-06-25 2020-06-25 Outpatient R GEOFFREY [facility] [id number] Univers 16:00:00 16:00:00 SENDIL [facility] 2020-06-19 2020-06-19 [facility] 1.2.840.114 [id number] Univers 11:13:36 12:10:35 Visit Domenica Peñaloza 350.1.13.10 [facility] 4.2.7.2.686 [place] Professio [phone] Ia dical nal 059 [facility] 2020-06-19 2020-06-19 [facility] [id number] Univers 11:20:00 11:20:00 DOMENICA joeken [facility] 2019-10-23 2019-10-23 [facility] [id number] Univers 10:20:00 10:20:00 DOMENICA oksana [facility] Results Test Description Test Time Test Comments Results Result Comments Source REAGENT STRIP/BLOOD GLUCOSE 2022-05-16 00:00:00 Test Item Value Reference Range Interpretation Comme nts BLOOD SUGAR (test code = 981418) 83 mg/dL 65-99 Yanely Jarrett - ExternalREAGENT STRIP/BLOOD [id number] 16:57:00 Test Item Value Reference Range Interpretation Comments BLOOD SUGAR (test code = 336082) 353 mg/dL 65-99 A Lab Interpretation (test code = Abnormal 04063-9) Yanely JarrettREAGENT STRIP/BLOOD [id number] 20:00:00 Test Item Value Reference Range Interpretation Comments BLOOD SUGAR (test code = 837920) 261 mg/dL 65-99 A Lab Interpretation (test code = Abnormal 28377-9) Yanely Jarrett Notes Date/Time Note Provider Source 2023-02-02 09:14:22 [id number]:14:22[facility] this note is different from the original.Chief Complaint Patient presents with Sinus Problem 25146-8Deufz TvifKG7745-89-38R08:14:40Nurse NoteTXT1.2.840.103000.1.13.131.2.7 .2.579515|[id number] for patient avzj84003-2Oqeuj NoteLNEdgerton [facility]2727 [facility] [id number] [id number]:14:401.2.840.1143 50.1.72.3.15|1.2.840.569871.1.13.1 31.2.7.2.727879_364369342"
--- NOTE | 2023-04-26 16:50 | ER ---
Nurse's Notes [facility] Name: Jose Gonzales Age: 58 yrs Sex: Male : 1965 Arrival Date: 04/26/2023 Time: 15:20 Bed 3 Private MD: Diagnosis: End stage renal disease;Acute pulmonary edema;Dyspnea, unspecified;Chest pain, unspecified Presentation: 04/26 15:28 Chief complaint: EMS states: Pt was at dialysis today and about 30 minutes into the cm10 session patient began having chest pain and shortness of breath. Pt states that the pain was on the right side of chest and radiated to left side of chest. EMS states that they were told in report that his O2 was 91% on RA and patient was placed on 3L via NC. Pt states that all of his symptoms have resolved. Pt received Vitamin D at dialysis [employer]OR [employer]. Coronavirus screen: Vaccine status: Patient reports receiving the 2nd dose of the covid vaccine. Client denies travel out of the [place] in the last 14 days. Ebola Screen: Patient denies travel to an Ebola-affected area in the 21 days before illness onset. No symptoms or risks identified at this time. Initial Sepsis Screen: Does the patient meet any 2 criteria? No. Patient's initial sepsis screen is negative. Does the patient have a suspected source of infection? No. Patient's initial sepsis screen is negative. Risk Assessment: Do you want to hurt yourself or someone else? Patient reports no desire to harm self or others. Onset of symptoms was April 26, 2023. 15:28 Method Of Arrival: [facility] 15:28 Acuity: ANDREW 2 cm10 Historical: - Allergies: 15:31 bleach; cm10 - PMHx: 15:31 chronic kidney disease; Congestive heart failure; diabetes mellitus; Enlarged Heart; cm10 Hypertensive disorder; PERIPHERAL NEUROPATHY; Sleep Apnea; - PSHx: 15:31 Appendectomy; cataracts; knee surgery; cm10 - Immunization history:: Adult Immunizations unknown. - Social history:: Smoking status: Patient denies any tobacco usage or history of. - Family history:: not pertinent. - Hospitalizations: : No recent hospitalization is reported. Screenin:[address] [facility] ED Fall Risk Assessment (Adult) Score/Fall Risk Level 0 - 2 = Low Risk. Abuse iw screen: Denies threats or abuse. Denies injuries from another. Nutritional screening: No deficits noted. Tuberculosis screening: No symptoms or risk factors identified. Assessment: 15:50 General: Appears in no apparent distress. comfortable, Behavior is calm, cooperative, nj1 appropriate for age. Pain: Denies pain. Neuro: Level of Consciousness is awake, Oriented to person, place, time, situation. Cardiovascular: Denies chest pain, Patient's skin is warm and dry. 15:50 Respiratory: Airway is patent Respiratory effort is even, unlabored. nj1 Vital Signs: 15:28 Pulse 96; Resp 18; Temp 97.3(IR); Pulse Ox 100% on 3 lpm NC; Weight 152.8 kg; Pain 0/10;cm10 15:34 BP 188 / 107; cm10 16:29 BP 185 / 84; Pulse 96; Pulse Ox 100% on 2 lpm NC; ap3 15:28 Pain Scale: Adult cm10 ED Course: 15:26 Patient arrived in ED. mr 15:28 Bob Goyal MD is Attending Physician. rn 15:31 Triage completed. cm10 15:31 Sweetie Mcmillan, MICHAEL is Primary Nurse. nj1 15:31 Arm band placed on Patient placed in a hallway bed, on a stretcher, on oxygen, on cm10 manager monitoring, on pulse oximetry. 15:46 XRAY Chest (1 view) In Process Unspecified. EDMS 15:50 Inserted saline lock: 20 gauge in left antecubital area, using aseptic technique. nj1 ,using aseptic technique. Ultrasound guided. Catheter tip well visualized within vasculature during placement. Blood collected. 16:30 ED physician to see patient. ap3 16:50 Lizbet Morin MD is Referral Physician. rn 17:16 Patient has correct armband on for positive identification. Provided Education on: . iw Client placed on continuous cardiac and pulse oximetry monitoring. NIBP monitoring applied. 17:17 No provider procedures requiring assistance completed. IV discontinued, intact, iw bleeding controlled, No redness/swelling at site. Pressure dressing applied. Patient maintains SpO2 saturation greater than 95% on room air. Administered Medications: No medications were administered Medication: 17:16 VIS not applicable for this client. iw Outcome: 16:50 Discharge ordered by . rn 17:16 Discharged to home via wheelchair, with family, iw 17:16 Condition: good 17:16 Discharge instructions given to patient, family, Instructed on discharge instructions, follow up and referral plans. Demonstrated understanding of instructions, follow-up care, 17:17 Patient left the ED. iw Signatures: Dispatcher [employer] EDMS Ailyn Guillory, Reg Reg mr Valerie Rodriguez, RN RN iw Bob Goyal MD MD rn Prokisch, Amanda, RN RN ap3 Sweetie Mcmillan RN RN nj1 Marycarmen Blandon RN RN cm10
--- NOTE | 2023-04-26 16:50 | EDPHYS ---
Physician Documentation [facility] Name: Jose Gonzales Age: 58 yrs Sex: Male : 1965 Arrival Date: 04/26/2023 Time: 15:20 Bed 3 Private MD: ED Physician Bob Goyal HPI: 04/26 15:33 This 58 yrs old Male presents to ER via EMS with complaints of Chest Pain, sob. rn 15:33 The patient has shortness of breath During dialysis. Onset: The symptoms/episode rn began/occurred just prior to arrival. Duration: The symptoms are continuous, but are steadily getting better. The patient's shortness of breath is aggravated by nothing, is alleviated by application of supplemental oxygen. Associated signs and symptoms: Pertinent positives: chest pain, Pertinent negatives: fever, hemoptysis, loss of consciousness. Severity of symptoms: At their worst the symptoms were mild in the emergency department the symptoms have improved. The patient has experienced similar episodes in the past. The patient has been recently seen by a physician:. Patient sent from dialysis center for evaluation after 30 minutes into his session developed chest pain and shortness of breath. Session stopped. Patient was 91 and 92% oxygen on room air and symptoms resolved after nasal cannula placed. Patient denies any fever. No current chest pain or shortness of breath. No missed sessions. No abdominal pain.. Historical: - Allergies: 15:31 bleach; cm10 - PMHx: 15:31 chronic kidney disease; Congestive heart failure; diabetes mellitus; Enlarged Heart; cm10 Hypertensive disorder; PERIPHERAL NEUROPATHY; Sleep Apnea; - PSHx: 15:31 Appendectomy; cataracts; knee surgery; cm10 - Immunization history:: Adult Immunizations unknown. - Social history:: Smoking status: Patient denies any tobacco usage or history of. - Family history:: not pertinent. - Hospitalizations: : No recent hospitalization is reported. ROS: 15:33 Constitutional: Negative for fever, chills, and weight loss, Cardiovascular: Negative rn for palpitations, and edema, Respiratory: Positive for shortness of breath Abdomen/GI: Negative for abdominal pain, nausea, vomiting, diarrhea, and constipation, Back: Negative for injury and pain, MS/Extremity: Negative for injury and deformity, Skin: Negative for injury, rash, and discoloration, Neuro: Negative for headache, weakness, numbness, tingling, and seizure, Exam: 15:32 ECG was reviewed by the Attending Physician. rn 15:33 Constitutional: This is a well developed, well nourished patient who is awake, alert, rn and in no acute distress. Head/Face: Normocephalic, atraumatic. ENT: No stridor Cardiovascular: Regular rate and rhythm. No pulse deficits. Respiratory: No increased work of breathing, no retractions or nasal flaring. Abdomen/GI: Soft, nontender Skin: Warm, dry MS/ Extremity: Pulses equal, no cyanosis. Neuro: Awake and alert, GCS 15 Vital Signs: 15:28 Pulse 96; Resp 18; Temp 97.3(IR); Pulse Ox 100% on 3 lpm NC; Weight 152.8 kg; Pain 0/10;cm10 15:34 BP 188 / 107; cm10 16:29 BP 185 / 84; Pulse 96; Pulse Ox 100% on 2 lpm NC; ap3 15:28 Pain Scale: Adult cm10 MDM: 15:28 Patient medically screened. rn 16:47 Differential diagnosis: Pneumothorax pulmonary edema, End-stage renal disease. Data rn reviewed: vital signs, nurses notes, lab test result(s), EKG, radiologic studies, plain films, and as a result, I will discharge patient. Independent interpretation of the following test(s) in the Emergency Department EKG: See my EKG interpretation above X-Ray: My interpretation is Chest x-ray images negative for pneumonia per my interpretation, negative for pneumothorax as well. Care significantly affected by the following chronic conditions: Hypertension, Chronic Kidney Disease. Counseling: I had a detailed discussion with the patient and/or guardian regarding the historical points, exam findings, and any diagnostic results supporting the discharge/admit diagnosis, lab results, radiology results, the need for outpatient follow up, to return to the emergency department if symptoms worsen or persist or if there are any questions or concerns that arise at home. Special discussion: I discussed with the patient/guardian in detail that at this point there is no indication for admission to the hospital. It is understood, however, that if the symptoms persist or worsen the patient needs to return immediately for re-evaluation. Based on the history and exam findings, there is no indication for further emergent testing or inpatient evaluation. I discussed with the patient/guardian the need to see the primary care provider for further evaluation of the symptoms. Nephrology. ED course: Patient asymptomatic since arrival, taken off of oxygen and no oxygen requirement, still 100% on room air. No chest pain since arrival as well. Troponin negative. Chest x-ray shows mild pulmonary edema and elevated BNP. No ischemia on EKG. Offered patient IV Lasix as he still makes urine, declines, does not want to urinate a lot here and takes twice a day at home. Called dialysis center to try to get him in today and they were unable to. Patient states will go home and take his Lasix and return if anything gets worse. Has scheduled dialysis on Monday at 9 AM. I have personally reviewed all of the results, including but not limited to blood tests and imaging deemed necessary to safely discharge this patient at this time. All results given to and printed out for patient. I personally went over all the results with the patient and answered all questions. Patient will follow-up with PCP and or specialist as discussed. Return precautions given and understood.. 04/26 15:28 Order name: Basic Metabolic Panel; Complete Time: 16:35 04/26 15:28 Order name: CBC with Diff; Complete Time: 16:35 04/26 15:28 Order name: NT PRO-BNP; Complete Time: 16:35 04/26 15:28 Order name: PT-INR; Complete Time: 16: 04/26 15:28 Order name: Troponin HS; Complete Time: 16:35 04/26 15:28 Order name: XRAY Chest (1 view); Complete Time: 16:28 04/26 15:28 Order name: EKG; Complete Time: 15:29 04/26 15:28 Order name: Cardiac monitoring; Complete Time: 15: 04/26 15:28 Order name: EKG - Nurse/Tech; Complete Time: 15:32 04/26 15: Order name: IV Saline Lock; Complete Time: 16:04 04/26 15: Order name: Labs collected and sent; Complete Time: 16:04 04/26 15:28 Order name: O2 Per Protocol; Complete Time: 15:47 04/26 15:28 Order name: O2 Sat Monitoring; Complete Time: 15:47 rn EC:32 Rate is 98 beats/min. Rhythm is regular. QRS [place] is Normal. ND interval is normal. QRS rn interval is normal. QT interval is normal. No Q waves. No ST changes noted. Clinical impression: NSR w/ Non-specific ST/T Changes. Interpreted by me. Reviewed by me. Administered Medications: No medications were administered Disposition Summary: 04/26/23 16:50 Discharge Ordered Notes: Location: Home rn Problem: new rn Symptoms: have improved rn Condition: Stable rn Diagnosis - End stage renal disease rn - Acute pulmonary edema rn - Dyspnea, unspecified rn - Chest pain, unspecified rn Followup: rn - With: Lizbet Morin MD - When: As needed - Reason: Recheck today's complaints, Re-evaluation by your physician Discharge Instructions: - Discharge Summary Sheet rn - Nonspecific Chest Pain, Adult rn - Shortness of Breath, Adult rn - learning technologies specialist Forms: - Medication Reconciliation Form rn - Thank You Letter rn - Antibiotic buffing turner and counter - Prescription Opioid Use rn - Patient Portal Instructions rn - Leadership Thank You Letter rn Signatures: Dispatcher [employer] Bob Harris MD MD rn Martinez, Clarissa, RN RN 10
[2023-04-26 17:37] VITALS: TEMP 97.3; O2SAT 100
[2023-04-26 17:44] VITALS: BP 185/84
--- NOTE | 2023-05-01 17:00 | EKG ---
Test Date: 2023-04-26 Test Time: 15:28:39 Director Physical: ALP MEASUREMENT RESULTS: Intervals: Rate: 98 UT: 156 QRSD: 86 QT: 368 QTc: 469 Joice: P: 56 UT: 156 QRS: 80 T: 79 INTERPRETIVE STATEMENTS: Sinus rhythm with sinus arrhythmia with occasional premature ventricular complexes Low voltage QRS Borderline ECG Compared to ECG 02/24/2023 16:49:52 Low QRS voltage now present Atrial fibrillation no longer present ST (T wave) deviation no longer present Electronically Signed On 05-01-23 16:54:15 BIN PACKER by Arie Irwin
== END 2023-04-26 17:17 | disposition home or self-care (01) ==
LOC: ER 15:20
DX: R07.89 Other chest pain (principal); J81.0 Acute pulmonary edema; R06.00 Dyspnea, unspecified; E11.22 Type 2 diabetes mellitus with diabetic chronic kidney disease; I13.2 Hypertensive heart and chronic kidney disease with heart failure and with stage 5 chronic kidney disease, or end stage renal disease; I50.9 Heart failure, unspecified; N18.6 End stage renal disease; Z99.2 Dependence on renal dialysis; Z91.048 Other nonmedicinal substance allergy status
CPT/HCPCS: 36415; 71045; 80048; 83880; 84484; 85025; 85610; 93005; 99284

== ENCOUNTER 2023-06-29 10:37 | Day surgery (SDC) | payer OTHER ==
[2023-06-28 08:57] LABS: Absolute Lymphocytes (CBC) 2.3 K/uL (0.7-4.9); Hematocrit 28.6 % (39.6-49.0); Lymphocytes % 23.9 % (15.3-44.8); MCV 86.7 fL (80-100); MPV 6.8 fL (7.6-11.3); Platelets 299 thou/uL (152-406)
[2023-06-28 09:06] LABS: Potassium 3.6 mEq/L (3.5-5.1)
[2023-06-29] MEDS ORDERED: CEFAZOLIN SODIUM 2 GM/VIAL ONE (11:00)
[2023-06-29] MEDS ORDERED: NA CHLORIDE 0.9% 500 ML ONE (11:01)
[2023-06-29] MEDS ORDERED: HEPARIN 500 UNIT/5 ML SYR IV ONE (13:03)
[2023-06-29] MEDS ORDERED: BUPIVACAINE 0.25% PF 30 ML VIAL ONE (13:08)
[2023-06-29] MEDS ORDERED: NA CHLORIDE 0.9% 1,000 ML ONE (13:29)
[2023-06-29] MEDS ORDERED: LIDOCAINE 1% MPF 5 ML VIAL ONE (13:36)
[2023-06-29] MEDS ORDERED: propofoL 200 MG/20 ML VIAL IV ONE (13:36)
[2023-06-29] MEDS ORDERED: FENTANYL CITR 100 MCG/2 ML ONE (13:37)
[2023-06-29] MEDS ORDERED: MIDAZOLAM HCL 2 MG/2 ML INJ ONE (13:38)
[2023-06-29] MEDS ORDERED: dexAMETHasone 4 MG/ML VIAL ONE (14:18)
[2023-06-29] MEDS ORDERED: NEOSTIGMINE 1 MG/ML -10 ML VIAL ONE (14:46)
[2023-06-29] MEDS ORDERED: GLYCOPYRROLATE 0.2 MG/ML SYR ONE ×4 (14:46)
--- NOTE | 2023-06-29 14:51 | P.OP ---
Preoperative diagnosis: Dependence on Dialysis Postoperative diagnosis: Dependence on Dialysis Primary procedure: Laparoscopic Peritoneal Dialysis Catheter placement Anesthesia: GETA + Local Estimated blood loss: <10cc Specimen: none Findings: significant adipose tissue, some adhesions Complications: None Implants: Nice Double cuff standart PD catheter Transferred to: Recovery Room Condition: Good
[2023-06-29] MEDS: LABETALOL 20 MG/4ML SYRINGE IV ONE ×2 (15:19→15:24)
[2023-06-29 15:35] VITALS: TEMP 97
--- NOTE | 2023-06-29 16:14 | OP ---
Date of Procedure: 06/29/2023 Surgeon: Jerson Jimenez MD, Preoperative Diagnosis: Dependent on renal dialysis. Postoperative Diagnosis: Dependent on renal dialysis. Procedure Performed: Laparoscopic peritoneal dialysis catheter placement. Anesthesia: General endotracheal plus local with 0.25% Marcaine. Estimated Blood Loss: Less than 10 cc. Specimen: None. Findings: Significant adipose tissue and omentum and some adhesions between the anterior abdominal w all and the greater omentum. Complications: None. Implants: Merit double-cuffed standard peritoneal dialysis catheter. Disposition: Patient transferred to recovery room in good condition. Procedure In Detail: After informed consent was obtained, patient was brought to the operating room, prepped and draped in the usual sterile fashion after adequate anesthesia was achieved. The patient remained in the neutral position. I placed the Merit peritoneal dialysis catheter template on the p atient's pubis and I marked the area for the catheter to be placed with its exit site as well. He is in the stencil set. At this point, I anesthetized the area and the entire tract, made an incision i n the left upper quadrant down to subcutaneous tissues. A 5 mm surgical optical trocar was introduce d in the abdomen without incident or complication. Insufflation obtained to 15 mmHg, at this time. There was no injury to vital structures upon entering the abdomen. The omentum was found to be quite large, at this point and significant adipose tissue in the area. However, there did appear to be an area of appropriate leading zone for the catheter in the pelvis. There was some scar to the anterio r abdominal wall from the omentum which were not terribly significant but could help keep the omentum partially draped away from the area with the catheter planned to be replaced. At this point, I made an incision overlying the pre-stencil insertion site and using the introducer sheath, I angled it to lora the patient's coccyx/sacral region at a 45 degree angle. The introducer sheaths were left in pl chuy, dilated up at this point and the catheter was introduced with the first cuff into the rectus she ath. At this point, the catheter curled gently toward the midline and medially just to the right of midline on the introduction site on the left abdomen for the left rectus insertion site. At this poi nt, the catheter was blowing air and a clamp was placed. I then placed the tunneling device onto the catheter and placed it through the planned exit site, made an incision to allow for the tunneling de vice to bring the catheter out at this point. The catheter continued to blow air, at this point, and the cuff was tightened up at this point without kinks. At this point, I flushed the catheter, robus tly flushed and some fluid came back immediately upon syringe examination. At this point, it was pac ked with heparin and a cap was placed on the end, at this point. I then irrigated the insertion site s. I then decompressed the abdomen in its entirety, removed the 5 mm trocar site from the left lower quadrant and I desufflated the abdomen under direct visualization without incident or complication. All skin incisions were then copiously irrigated and closed with 4-0 Monocryl in a running fashion. Dermabond was placed over top. I placed a single 3-0 nylon suture adjacent to the catheter exit sit e as there was a slight opening to this area and good hemostasis was achieved at the end of the proce dure. The patient tolerated the procedure without incident or complication. All counts were correct at the end of the case. MELANIE/EMMYL Voice ID: [id number] Report ID: [id number]
[2023-06-29 17:59] VITALS: BP 150/76; O2SAT 93
== END 2023-06-29 17:18 | disposition home or self-care (01) ==
LOC: OR 10:37
PROVIDERS: ATTEND Surgery
PROC: 0WHG43Z Insertion of Infusion Device into Peritoneal Cavity, Percutaneous Endoscopic Approach (ICD-10-PCS; principal; 2023-06-29 12:30)
DX: N18.6 End stage renal disease (principal); Z99.2 Dependence on renal dialysis
CPT/HCPCS: 36558; 85025; 80048; 36415; 82947 ×2; J2704; J1100; J2710; J2001; J2250; J3010; J1642; J7040; J7030

== ENCOUNTER 2023-09-22 09:46 | Day surgery (SDC) | payer OTHER ==
[2023-09-19 08:51] LABS: Absolute Basophils 0.1 K/uL (0-0.5); Absolute Eosinophils 1.1 K/uL (0-0.5); Absolute Lymphocytes (CBC) 1.7 K/uL (0.7-4.9); Absolute Monocytes 0.6 K/uL (0.1-1.3); Absolute Neutrophil 7.2 K/uL (1.8-8.0); Basophils % 1.1 % (0-1.3); Hematocrit 34.9 % (39.6-49.0); Hemoglobin 11.4 g/dL (13.6-17.9); Lymphocytes % 15.6 % (15.3-44.8); MCH 28.2 pg (27.0-35.0); MCHC 32.7 g/dL (32.0-36.0); MCV 86.3 fL (80-100); MPV 7.2 fL (7.6-11.3); Monocytes % 5.4 % (3.3-12.3); Neutrophils % 67.9 % (41.7-73.7); Platelets 316 thou/uL (152-406); RBC Red Blood Cell Count 4.05 M/uL (4.33-5.43); Red Cell Distribution Width 15.2 % (12.1-15.2)
[2023-09-19 08:56] LABS: PT Prothrombin Time 11.4 SECONDS (9.5-12.5); PTT, Activated Partial Thromb 39.8 SECONDS (24.3-36.9); Protime INR 1.04
[2023-09-19 09:10] LABS: Anion Gap 8.8 mEq/L (5.0-15.0); Potassium 3.8 mEq/L (3.5-5.1)
[2023-09-22] MEDS: NA CIT/CITRIC AC 30 ML ORAL UDC ONE (10:40)
[2023-09-22] MEDS: NA CHLORIDE 0.9% 500 ML ONE (10:40)
[2023-09-22] MEDS ORDERED: LIDOCAINE 1% MPF 5 ML VIAL ONE (12:33)
[2023-09-22] MEDS ORDERED: propofoL 200 MG/20 ML VIAL IV ONE (12:33)
[2023-09-22] MEDS ORDERED: MIDAZOLAM HCL 2 MG/2 ML INJ ONE (12:34)
[2023-09-22] MEDS: CEFAZOLIN SODIUM 2 GM/VIAL ONE (12:43)
[2023-09-22] MEDS: LIDOCAINE HCL/EPINEPHRINE 20 ML MDV ONE (13:07)
--- NOTE | 2023-09-22 13:15 | P.OP ---
Preoperative diagnosis: Removal of RIGHT IJ Tunneled HD Catheter Postoperative diagnosis: Removal of RIGHT IJ Tunneled HD Catheter Primary procedure: Removal of RIGHT IJ Tunneled HD Catheter Anesthesia: MAC + Local Estimated blood loss: <5cc Specimen: Cath for ID only Findings: cath Complications: None Transferred to: Recovery Room Condition: Good
--- NOTE | 2023-09-22 14:05 | OP ---
Date of Procedure: 09/22/2023 Surgeon: Jerson Jimenez MD, Preoperative Diagnosis: Removal of right internal jugular tunneled hemodialysis catheter. Postoperative Diagnosis: Removal of right internal jugular tunneled hemodialysis catheter. Procedure Performed: Removal of right internal jugular tunneled hemodialysis catheter. Anesthesia: MAC plus local with 0.25% Marcaine. Estimated Blood Loss: Less than 5 cc. Specimen: Catheter for ID only. Findings: Catheter had no signs of infection. Complications: None. Disposition: Patient transferred to recovery room in good condition. Procedure In Detail: After informed consent was obtained, patient was brought to the operating room, prepped and draped in the usual sterile fashion after adequate anesthesia was achieved, the patient was placed in steep Trendelenburg position. I anesthetized the area where on the cuff on the right c hest wall with 0.25% Marcaine, I then used Metzenbaum scissors to dilate up the tract, bringing the c atheter cuff into the field. Using a combination of sharp dissection as well as electrocautery, I wa s able to dissect this free from the surrounding tissues. Patient remained in steep Trendelenburg po sition, at this point. Pressure was held at the insertion site as well as the excision site. Cathet er was removed, sent off for pathologic examination. The patient then was placed back in neutral pos ition. The area was irrigated and closed with a vertical mattress suture of 3-0 nylon with good appr oximation of tissues. At this point, the area was cleansed and a sterile dressing was placed over to p. Pressure was held for additional 3 to 5 minutes while the patient was at the sitting up position without incident or complication. The patient tolerated the procedure without incident or complicati on and transferred to PACU in good condition. All counts were correct at the end of the case. MELANIE/EMMYL Voice ID: [id number] Report ID: [id number]
[2023-09-22 15:01] VITALS: BP 174/81; TEMP 98; O2SAT 98
== END 2023-09-22 13:55 | disposition home or self-care (01) ==
LOC: OR 09:46
PROVIDERS: ATTEND Surgery
PROC: 05PY03Z Removal of Infusion Device from Upper Vein, Open Approach (ICD-10-PCS; principal; 2023-09-22 11:15)
DX: N18.6 End stage renal disease (principal); Z49.01 Encounter for fitting and adjustment of extracorporeal dialysis catheter
CPT/HCPCS: 85025; 80048; 36415; 85610; 82947; 88300; 85730; 36589; J2704; J2001; J2250; J7040

== ENCOUNTER 2023-10-05 10:58 | Inpatient (IN) | payer OTHER ==
[2023-10-05] MEDS ORDERED: ASPIRIN 81 MG CHEWABLE TABLET ONE (11:21)
[2023-10-05] MEDS ORDERED: TICAGRELOR 90 MG TABLET PO ONE (11:28)
[2023-10-05] MEDS ORDERED: HEPARIN 5000 UNIT/ML 1 ML VIAL ONE ×2 (11:28→11:38)
[2023-10-05] MEDS ORDERED: HEPA 1000U/500MLS 2,000 UNIT/1,000 ML BAG IV ONE (11:29)
[2023-10-05] MEDS ORDERED: LIDOCAINE 1% 20 ML MDV ONE (11:29)
[2023-10-05 11:30] LABS: Absolute Basophils 0.1 K/uL (0-0.5); Absolute Eosinophils 0.3 K/uL (0-0.5); Absolute Lymphocytes (CBC) 1.7 K/uL (0.7-4.9); Absolute Monocytes 0.5 K/uL (0.1-1.3); Absolute Neutrophil 9.1 K/uL (1.8-8.0); Basophils % 0.7 % (0-1.3); Eosinophils % 2.6 % (0-4.4); Hematocrit 34.8 % (39.6-49.0); Hemoglobin 11.2 g/dL (13.6-17.9); Lymphocytes % 14.9 % (15.3-44.8); MCHC 32.1 g/dL (32.0-36.0); MCV 87.2 fL (80-100); MPV 7.3 fL (7.6-11.3); Monocytes % 4.1 % (3.3-12.3); Neutrophils % 77.7 % (41.7-73.7); Platelets 376 thou/uL (152-406); RBC Red Blood Cell Count 3.99 M/uL (4.33-5.43)
[2023-10-05] MEDS ORDERED: VERAPAMIL HCL 10 MG/4 ML VIAL IV ONE (11:37)
[2023-10-05] MEDS ORDERED: NA CHLORIDE 0.9% 500 ML ONE ×2 (11:37→11:40)
[2023-10-05] MEDS ORDERED: FENTANYL CITR 100 MCG/2 ML ONE (11:37)
[2023-10-05] MEDS ORDERED: ATROPINE SULF 1 MG/10 ML SYR IV ONE (11:38)
[2023-10-05] MEDS ORDERED: MIDAZOLAM HCL 2 MG/2 ML INJ ONE (11:38)
[2023-10-05] MEDS ORDERED: HEPARIN 10,000 UNIT/10 ML VIAL IV ONE (11:38)
[2023-10-05] MEDS ORDERED: CLOPIDOGREL 75 MG TABLET ONE (11:39)
--- NOTE | 2023-10-05 11:47 | ER ---
Nurse's Notes [facility] Name: Jose Gonzales Age: 58 yrs Sex: Male : 1965 Arrival Date: 10/05/2023 Time: 10:58 Bed 4 Private MD: Diagnosis: ST elevation (STEMI) myocardial infarction of unspecified site;Chest pain, unspecified Presentation: 10/04 11:01 Chief complaint: Patient states: chest pain on and off "for a while". aa5 11: Coronavirus screen: At this time, the client does not indicate any symptoms associated aa5 with coronavirus-19. Ebola Screen: Patient denies travel to an Ebola-affected area in the 21 days before illness onset. Initial Sepsis Screen: Does the patient meet any 2 criteria? No. Patient's initial sepsis screen is negative. Does the patient have a suspected source of infection? No. Patient's initial sepsis screen is negative. Risk Assessment: Do you want to hurt yourself or someone else? Patient reports no desire to harm self or others. Onset of symptoms was 2023. 11:01 Method Of Arrival: Wheelchair aa5 11: Acuity: ANDREW 1 aa5 Historical: - Allergies: 11:09 bleach; aa5 - PMHx: 11:09 chronic kidney disease; Congestive heart failure; diabetes mellitus; Enlarged Heart; aa5 Hypertensive disorder; PERIPHERAL NEUROPATHY; Sleep Apnea; - PSHx: 11:09 Appendectomy; cataracts; knee surgery; aa5 - Immunization history:: Adult Immunizations up to date. - Infectious Disease History:: Denies. - Social history:: Smoking status: Patient denies any tobacco usage or history of. Screenin:25 [facility] ED Fall Risk Assessment (Adult) History of falling in the last 3 months, kc6 including since admission No falls in past 3 months (0 pts) Confusion or Disorientation No (0 pts) Intoxicated or Sedated No (0 pts) Impaired Gait No (0 pts) Mobility Assist Device Used No (0 pt) Altered Elimination No (0 pt) Score/Fall Risk Level 0 - 2 = Low Risk. Abuse screen: Denies threats or abuse. Denies injuries from another. Nutritional screening: No deficits noted. Tuberculosis screening: No symptoms or risk factors identified. Assessment: 11:17 Reassessment: Patient appears in no apparent distress at this time. Patient and/or db family updated on plan of care and expected duration. Pain level reassessed. Patient is alert, oriented x 3, equal unlabored respirations, skin warm/dry/pink. General: Appears uncomfortable, Behavior is cooperative. Pain: Complains of pain in chest Pain radiates to abdomen Pain began gradually, 2-3 days ago. Neuro: Level of Consciousness is awake, alert, obeys commands, Oriented to person, place, time, situation, Speech is normal. Cardiovascular: Capillary refill < 3 seconds Patient's skin is warm and dry. Respiratory: Airway is patent Respiratory effort is even, unlabored, Respiratory pattern is regular, symmetrical. GI: No deficits noted. No signs and/or symptoms were reported involving the gastrointestinal system. : No deficits noted. No signs and/or symptoms were reported regarding the genitourinary system. 11:40 Reassessment: PATIENT TRANSPORTED TO GENERATOR REBUILDER VIA STRETCHER WITH 2 RNS. REPORT GIVEN. Vital Signs: 11:01 BP 185 / 82; Pulse 91; Resp 20 S; Temp 98.5(O); Pulse Ox 97% on R/A; aa5 11:17 BP 196 / 92; Pulse 92; Resp 19; Pulse Ox 97% ; db 11:26 BP 196 / 92; Pulse 90; Resp 19 S; Pulse Ox 99% on R/A; kc6 11:30 Weight 151.95 kg; Height 6 ft. 2 in. ; bc6 11:30 Body Mass Index 43.01 (151.95 kg, 187.96 cm) bc6 Vitals: 11:17 Cardiac Rhythm Assessment Other STEMI. ED Course: 11:00 Patient arrived in ED. im 11:01 Arm band placed on Patient placed in an exam room, on a stretcher. aa5 11:02 Renetta Stewart MD is Attending Physician. sd2 11:10 Triage completed. aa5 11:12 Initial lab(s) drawn, by me, sent to lab. 11:25 Patient has correct armband on for positive identification. Placed in gown. Bed in low kc6 position. Call light in reach. Side rails up X2. Adult w/ patient. Client placed on continuous cardiac and pulse oximetry monitoring. NIBP monitoring applied. media monitor on. Pillow given. 11:25 Inserted saline lock: 18 gauge in right antecubital area, using aseptic technique. kc6 Blood collected. Inserted saline lock: 18 gauge in left antecubital area, using aseptic technique. 11:33 Brigitte Silver, RN is Primary Nurse. db 11:40 Provided Education on: GENERATOR REBUILDER, CONSENTED BY GENERATOR REBUILDER. Pulse ox on. NIBP on. db 11:40 No provider procedures requiring assistance completed. Patient admitted, IV remains in db place. Oxygen administration via nasal cannula. 11:45 Bang Lange is Hospitalizing Provider. sd2 11:53 Notified ED physician of a critical lab result(s). TROPONIN of 3022.9. mb9 Administered Medications: 11:25 Drug: Aspirin PO Chewable Tablet 324 mg PO once; 81 mg tablets x 4 Route: PO; kc6 11:30 Drug: HEParin IV 4000 units IV at bolus once {Co-Signature: lo (Henny Koo db RN).} Route: IV; Rate: bolus; Site: right antecubital; 11:30 Drug: Brilinta - Ticagrelor PO 180 mg PO once; loading dose Route: PO; db Medication: 11:40 VIS not applicable for this client. db Outcome: 11:40 Admitted to [facility] accompanied by nurse, via stretcher, on monitor, with chart, db Report called to BEDSIDE REPORT GIVEN TO RN WITH SBAR PRINT OUT 11:40 Condition: stable 11:40 Instructed on the need for admit, 11:46 Decision to Hospitalize by Provider. sd2 12:01 Patient left the ED. aa5 Signatures: Rose Oropeza RN RN aa5 Renetta Stewart MD MD sd2 Henny Koo, RN RN eddi6 Brigitte Silver, RN RN Ailyn Villanueva, RN RN mb9 Dayan Espinoza Itzel Henny Koo RN6 Corrections: (The following items were deleted from the chart) 11:19 11:01 Acuity: ANDREW 3 aa5 aa5
--- NOTE | 2023-10-05 11:47 | EDPHYS ---
Physician Documentation [facility] Name: Jose Gonzales Age: 58 yrs Sex: Male : 1965 Arrival Date: 10/05/2023 Time: 10:58 Bed 4 Private MD: ED Physician Renetta Stewart HPI: 10/04 11:41 This 58 yrs old Male presents to ER via Wheelchair with complaints of Chest Pain. sd2 11:41 58-year-old male presents with chief complaint of chest pain. He reports intermittent sd2 chest pain for the past week that became constant today. Denies any associated shortness of breath, nausea, vomiting or diaphoresis. He reports a history of peritoneal dialysis which she does daily and his last time was yesterday. He is also on Eliquis and took his dose today. He reports his blood pressure is elevated due to taking his hydralazine just before arrival which is late for him.. Historical: - Allergies: 11:09 bleach; aa5 - PMHx: 11:09 chronic kidney disease; Congestive heart failure; diabetes mellitus; Enlarged Heart; aa5 Hypertensive disorder; PERIPHERAL NEUROPATHY; Sleep Apnea; - PSHx: 11:09 Appendectomy; cataracts; knee surgery; aa5 - Immunization history:: Adult Immunizations up to date. - Infectious Disease History:: Denies. - Social history:: Smoking status: Patient denies any tobacco usage or history of. ROS: 11:41 Constitutional: Negative for fever, chills, and weight loss, Eyes: Negative for injury, sd2 pain, redness, and discharge, 11:41 Respiratory: Negative for shortness of breath, cough, wheezing. Abdomen/GI: Negative for abdominal pain, nausea, vomiting, diarrhea. MS/Extremity: Negative for injury and deformity, Skin: Negative for injury, rash, and discoloration, Neuro: Negative for headache, numbness and tingling. 11:41 Cardiovascular: Positive for chest pain, Negative for orthopnea, palpitations, Exam: 11:28 ECG was reviewed by the Attending Physician. NSR, rate 87, +STEMI with ST elevations in sd2 inferior leads and reciprocal changes in I and aVL 11:41 Constitutional: This is a well developed, well nourished patient who is awake, alert, sd2 and in no acute distress. Head/Face: Normocephalic, atraumatic. Eyes: EOMI, normal conjunctiva bilaterally Chest/axilla: Normal chest wall appearance and motion. Nontender with no deformity. Cardiovascular: Regular rate and rhythm with a normal S1 and S2. No gallops, murmurs, or rubs. 2+ distal pulses. Respiratory: Lungs have equal breath sounds bilaterally, clear to auscultation and percussion. No rales, rhonchi or wheezes noted. No increased work of breathing, no retractions or nasal flaring. Abdomen/GI: Soft, non-tender, with normal bowel sounds. No guarding or rebound. No evidence of tenderness throughout. Skin: Warm, dry with normal turgor. Normal color with no rashes, no lesions, and no evidence of cellulitis. MS/ Extremity: Pulses equal, no cyanosis. Neurovascular intact. Full, normal range of motion. Psych: Awake, alert, with orientation to person, place and time. Behavior, mood, and affect are within normal limits. Vital Signs: 11:01 BP 185 / 82; Pulse 91; Resp 20 S; Temp 98.5(O); Pulse Ox 97% on R/A; aa5 11:17 BP 196 / 92; Pulse 92; Resp 19; Pulse Ox 97% ; db 11:26 BP 196 / 92; Pulse 90; Resp 19 S; Pulse Ox 99% on R/A; kc6 11:30 Weight 151.95 kg; Height 6 ft. 2 in. ; bc6 11:30 Body Mass Index 43.01 (151.95 kg, 187.96 cm) bc6 MDM: 11:02 Patient medically screened. sd2 11:41 Differential diagnosis: Differential diagnosis includes but is not limited to: ACS, sd2 DVT/PE, pneumothorax, dissection, musculoskeletal, anxiety, anemia, electrolyte abnormality, pneumonia, CHF, COPD among others. HEART Score: History: Highly Suspicious (2), ECG: Significant ST-deviation (2), Age: > 45 and < 65 years (1), Risk Factors: > or = 3 Risk factors for atherosclerotic disease (2), Troponin:. The patient was given aspirin in the Emergency Department. Data reviewed: vital signs, nurses notes. I considered the following discharge prescriptions or medication management in the emergency department Medications were administered in the Emergency Department. See MAR. Historians other than the Patient: Spouse/Significant Other: at bedside gives most of history. Care significantly affected by the following chronic conditions: Diabetes, Hypertension, Congestive Heart Failure, Obesity, Chronic Kidney Disease. Counseling: I had a detailed discussion with the patient and/or guardian regarding the historical points, exam findings, and any diagnostic results supporting the discharge/admit diagnosis, the need for further work-up and treatment in the hospital. ED course: Dr. Gilbert notified of STEMI and came to bedside and evaluated the patient. [facility] to be taken emergently [facility]. Hospitalist notified.. 10/04 11:19 Order name: Basic Metabolic Panel; Complete Time: 12:01 sd2 10/04 11:19 Order name: CBC with Diff; Complete Time: 12: sd2 10/04 11:19 Order name: Troponin HS; Complete Time: 12: sd2 10/04 11:43 Order name: Protime (+INR); Complete Time: 12:01 EDMS 10/04 11:43 Order name: PTT, Activated Partial Thromb; Complete Time: 12:01 EDMS 10/04 11:19 Order name: EKG; Complete Time: 11:20 sd2 10/04 11:19 Order name: Cardiac monitoring; Complete Time: 11:20 sd2 10/04 11:19 Order name: EKG - Nurse/Tech; Complete Time: 11:20 sd2 10/04 11:19 Order name: IV Saline Lock; Complete Time: 11:20 sd2 10/04 11:19 Order name: Labs collected and sent; Complete Time: 11:20 sd2 10/04 11:19 Order name: O2 Per Protocol; Complete Time: 11:20 sd2 10/04 11:19 Order name: O2 Sat Monitoring; Complete Time: 11:20 sd2 Administered Medications: 11:25 Drug: Aspirin PO Chewable Tablet 324 mg PO once; 81 mg tablets x 4 Route: PO; kc6 11:30 Drug: HEParin IV 4000 units IV at bolus once {Co-Signature: kc6 (Henny Koo db RN).} Route: IV; Rate: bolus; Site: right antecubital; 11:30 Drug: Brilinta - Ticagrelor PO 180 mg PO once; loading dose Route: PO; tomi Disposition: 12:01 Critical Care:. sd2 Disposition Summary: 10/05/23 11:46 Hospitalization Ordered Notes: Hospitalization Status: Inpatient Admission sd2 Provider: Bang Lange Location: Intensive Care Unit sd2 Condition: Fair sd2 Problem: new sd2 Symptoms: are unchanged sd2 Bed/Room Type: Standard sd2 Room Assignment: sd2 Diagnosis - ST elevation (STEMI) myocardial infarction of unspecified site sd2 - Chest pain, unspecified sd2 Discharge Instructions: - Discharge Summary Sheet db Forms: - Medication Reconciliation Form sd2 - Leadership Thank You Letter sd2 - SBAR form db Critical care time excluding procedures: 12:01 Critical care time: Bedside Care: 15 minutes, Consultation: 5 minutes, Family sd2 Intervention: 10 minutes. Total time: 30 minutes Signatures: Dispatcher [employer] EDRose Vásquez RN RN aa5 Renetta Stewart MD MD sd2 Henny Koo RN RN kc6 Brigitte Silver RN RN db Henny Koo RN kc6
[2023-10-05 11:50] LABS: Anion Gap 10.9 mEq/L (5.0-15.0); Potassium 2.9 mEq/L (3.5-5.1)
[2023-10-05 11:53] LABS: Troponin High Sensitivity 3022.9 pg/mL (<58.9)
[2023-10-05 12:00] LABS: PT Prothrombin Time 12.3 SECONDS (9.5-12.5); PTT, Activated Partial Thromb 38.9 SECONDS (24.3-36.9); Protime INR 1.12
--- NOTE | 2023-10-05 12:43 | P.HP ---
Certification for Inpatient Patient admitted to: Inpatient With expected LOS: >2 Midnights Practitioner: I am a practitioner with admitting privileges, knowledge of patient current condition, hospital course, and medical plan of care. Services: Services provided to patient in accordance with Admission requirements found in Title 42 Section 412.3 of the Code of Federal Regulations Patient History Date of Service: 10/05/23 Primary Care Provider: Dr. Neves Reason for admission: chest pain History of Present Illness: 58-year-old male with a PMHx of ESRD on peritoneal dialysis, CHF, pulmonary hypertension atrial fibrillation, DMII, hypothyroidism, HTN, HLD, KEVIN, obesity who presented to the ED with complaints of chest pain. Chest pain has been inte rmittent for 1 week which became constant today (10/04). Found to have STEMI. Given aspirin, heparin bolus, Brilinta in ED. Cardiology consulted. Taken to [facility] from emergency room. Plan to admit to ICU following cath. Allergies Bleach (Sodium Hypochlorite) Adverse Reaction (Verified 09/22/23 12:10) Itching/Hives/Rash Home medications list reviewed: Yes Home Medications: Allopurinol 100 mg PO DAILY 02/21/23 Furosemide 80 mg PO BID 02/21/23 Gabapentin 100 mg PO TID 02/21/23 Hydralazine [Apresoline*] 50 mg PO TID 02/21/23 Isosorbide Mononitrate [Isosorbide Mononitrate ER] 30 mg PO DAILY 02/21/23 Levothyroxine Sodium 50 mcg PO DAILY 02/21/23 Pravastatin [Pravachol*] 40 mg PO BEDTIME 02/21/23 Apixaban [Eliquis *] 2.5 mg PO BID #60 tab 03/02/23 Glipizide [Glipizide ER] 10 mg PO DAILY 06/28/23 Insulin Aspart [Novolog Flexpen] 20 unit SQ AC 06/28/23 Insulin Glargine,Hum.rec.anlog [Basaglar Kwikpen U-100] 75 unit SQ BEDTIME 06/28/23 Losartan Potassium 25 mg PO DAILY 06/28/23 - Past Medical/Surgical History Diabetic: Yes -: Hypertensive disorder -: enlarged heart -: peripheral neuropathy -: sleep apnea -: Diabetes mellitus -: chronic kidney disease -: Appendectomy -: knee surgery -: cataracts - Family History Father -: Heart disease, Diabetes, Blood disorders, Kidney disease Mother -: Heart disease - Social History Smoking Status: Never smoker Alcohol use: No CD- Drugs: No Caffeine use: Yes Place of Residence: Home Review of Systems Cardiovascular: Chest Pain Physical Examination - Vital Signs Temperature: 98.5 F Blood Pressure: 196/92 Pulse: 90 Respirations: 19 - Physical Exam General: Alert, Oriented x3 HEENT: Atraumatic, Normocephalic Neck: Supple Respiratory: Clear to auscultation bilaterally, Normal air movement Cardiovascular: Normal pulses, Irregular heart rate/rhythm Gastrointestinal: Normal bowel sounds, Soft and benign Musculoskeletal: No clubbing Integumentary: No rashes, No breakdown, Other (PD cath) - Studies Laboratory Data (last 24 hrs) 10/05/23 10/05/23 10/05/23 11:19 11:19 11:19 WBC 11.80 H Hgb 11.2 L Hct 34.8 L Plt Count 376 PT 12.3 INR 1.12 APTT 38.9 H Sodium 133 L Potassium 2.9 L BUN 51 H Creatinine 6.51 H Glucose 371 H Assessment and Plan - Plan Problem list STEMI Chronic diastolic congestive heart failure Pulmonary Hypertension Hx Atrial Fibrillation Diabetes mellitus type II Hypothyroidism Hypertension Hyperlipidemia Sleep apnea Obesity STEMI -Given aspirin, heparin, Brilinta in ED -Supplemental O2 as needed -Electrolyte monitoring, replace per protocol - telemetry monitoring -Statin therapy; lipid profile - Continue aspirin, brilinta - repeat EKG - obtain echo - Cardiology consulted. --> lab rn 10/04 , admit to ICU Chronic Diastolic CHF Pulmonary Hypertension -Continue Lasix -Daily weights. Strict Intake/output. Fluid restriction. - TTE 02/2023: "1. normal left ventricular ejection fraction 55-60% with normal wall motion 2. Mildconcentric left ventricular hypertrophy 3. mild mitral regurgitation 4. mild tricuspid regurgitation 5. severe pulmonary hypertension with right ventricular systolic pressure of >60mmHg" Peritoneal dialysis -Patient recently had peritoneal dialysis cath placement on 09/22/2023. Previously on hemodialysis. 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
--- NOTE | 2023-10-05 15:58 | P.CNS ---
Date of Consult: 10/05/23 Primary Care Provider: Dr. Neves Chief Complaint: chest pain History of Present Illness: Patient with PMH of HTN, ESRD on PD, [place] obesity presented with chest pain started monday that got worse overnight, associated with nausea, denies any other cardiac symptoms. Allergies Bleach (Sodium Hypochlorite) Adverse Reaction (Verified 09/22/23 12:10) Itching/Hives/Rash Home Medications: Allopurinol 100 mg PO DAILY 02/21/23 Clonidine HCl [Catapres*] 0.2 mg PO TID 02/21/23 Ferrous Sulfate [Iron] 65 mg PO DAILY 02/21/23 Furosemide 80 mg PO BID 02/21/23 Gabapentin 100 mg PO TID 02/21/23 Hydralazine [Apresoline*] 50 mg PO TID 02/21/23 Isosorbide Mononitrate [Isosorbide Mononitrate ER] 30 mg PO DAILY 02/21/23 Levothyroxine Sodium 50 mcg PO DAILY 02/21/23 Linaclotide [Linzess] 145 mcg PO DAILY 02/21/23 Pravastatin [Pravachol*] 40 mg PO BEDTIME 02/21/23 Ubidecarenone [Co Q-10] 100 mg PO DAILY 02/21/23 Apixaban [Eliquis *] 2.5 mg PO BID #60 tab 03/02/23 Glipizide [Glipizide ER] 10 mg PO DAILY 06/28/23 Insulin Aspart [Novolog Flexpen] 20 unit SQ AC 06/28/23 Insulin Glargine,Hum.rec.anlog [Basaglar Kwikpen U-100] 75 unit SQ BEDTIME 06/28/23 Losartan Potassium 25 mg PO DAILY 06/28/23 Patiromer Calcium Sorbitex [Veltassa] 8.4 gm PO DAILY AT SUPPER 06/28/23 [place]-3S/Dha/Epa/Fish Oil [Fish Oil [place]-3 Softgel] 1 each PO BID 09/19/23 - Past Medical/Surgical History Diabetic: Yes -: Hypertensive disorder -: enlarged heart -: peripheral neuropathy -: sleep apnea -: Diabetes mellitus -: chronic kidney disease -: Appendectomy -: knee surgery -: cataracts - Family History Father Medical History: Heart disease, Diabetes, Blood disorders, Kidney disease Mother Medical History: Heart disease - Social History Alcohol use: No CD- Drugs: No Caffeine use: Yes Place of Residence: Home Review of Systems 10-point ROS is otherwise unremarkable Physical Examination Temp Pulse Resp BP Pulse Ox 98.5 F 90 19 196/92 H 10/05/23 14:13 10/05/23 14:13 10/05/23 14:13 10/05/23 14:13 General: Alert, Oriented x3 HEENT: Atraumatic Neck: Supple Respiratory: Clear to auscultation bilaterally Cardiovascular: No edema, Normal S1 S2 Gastrointestinal: Normal bowel sounds Laboratory Data (last 24 hrs) 10/05/23 10/05/23 10/05/23 11:19 11:19 11:19 WBC 11.80 H Hgb 11.2 L Hct 34.8 L Plt Count 376 PT 12.3 INR 1.12 APTT 38.9 H Sodium 133 L Potassium 2.9 L BUN 51 H Creatinine 6.51 H Glucose 371 H - Problems (1) STEMI (ST elevation myocardial infarction) Current Visit: Yes Status: Acute Plan: Patient presented with STEMI inferior leads, taken emergently to lab rep, s/p PCI to 99% occluded mid RCA Continue ASA 81 mg daily for life. Continue Brilinta 90 mg po BID Please get Echo (2) HLD (hyperlipidemia) Current Visit: Yes Status: Acute Plan: Continue Lipitor 40 mg daily (3) Hypertensive emergency Current Visit: No Status: Acute Plan: start patient on Coreg 6.25 mg po BID Continue Home dose Hydralazine 50 mg po TID Continue Imdur 30 mg daily Continue Lasix 80 mg po BID Hold Clonidine (4) Atrial fibrillation Current Visit: Yes Status: Acute Plan: Resume Elqiuis 2.5 mg po BID tonight.
[2023-10-05] MEDS ORDERED: GLUCAGON 1 MG/VIAL IM PRN (18:38)
[2023-10-05] MEDS ORDERED: D10W 250 ML BAG IV PRN (19:41)
--- NOTE | 2023-10-05 20:24 | OP ---
Date of Procedure: 10/05/2023 Surgeon: Christiano Gilbert Procedures Performed: 1.Left heart catheterization. 2.Coronary angiogram. 3.PCI of mid RCA with Synergy 3.5 x 24 mm drug-eluting stent. 4.PTCA of first RPLB and second RPLV. Indication For Procedure: STEMI, inferior wall. Complications: None. Estimated Blood Loss: Less than 50 cc. Sedation Time: 50 minutes with 1 of Versed and 50 of fentanyl. Access: Right radial, closed by TR band. Description Of Procedure: After risks, benefits, and alternatives were explained to the patient, the patient agreed to proceed with procedure and signed informed consent. The patient was brought back to the lab aide, prepped and draped in sterile fashion. Right radial access was obtained using a 6-F rench micropuncture technique after time-out and sedation was administered. A JR4 guide was advanced to the RCA. Heparin was administered. ACT was therapeutic, run-through wire into the RCA, pre-dila maren the lesions with 2.0 mm balloon, and then 2.5 mm balloon followed by an NC 2.30 mm balloon, that was followed by wolverine 3.5 x 10 mm cutting balloon. Next, Synergy 3.5 x 24 mm drug-eluting stent was placed across the mid RCA that was postdilated with an NC 4.0 mm balloon. Angiogram during the p rocedure showed some thrombus shift into the distal RCA, so PTCA was done and also showed thrombus sh ift into the first and second RPLV and so PTCA of both arteries were done. At the end of the procedu res, SHA-3 flow was established. The patient was moved back to recovery in stable conditions after sheath removal and TR band appliance. We also used a [place] 4 catheter for selective coronary angiogr am of the left coronary system and for LVEDP. Cath was removed over a J-wire with no complications. Findings: 1.Left main is normal. 2.LAD, mid 60% disease, mild LI. 3.Left circ, mid 60% disease and mild LI. 4.Diagonal, large, mid 80% disease and mild LI. 5.RCA, proximal mild luminal irregularities, then mid 99% calcified disease. PCI was done with Syne rgy 3.5 x 24 mm drug-eluting stent, distal mild LI. Assessment: 1.STEMI secondary to subacute 99% occluded RCA, status post PCI with Synergy 3.5 x 24 mm drug-elutin g stent. 2.Thrombus shift into the RPLV 1 and 2, PTCA was done. 3.Moderate mid LAD disease, moderate mid left circ disease, and [id number] diagonal disease. They will need stress test versus staged FFR depending on symptoms. 4.Elevated filling pressure. Plan: 1.Aspirin 81 mg daily for life. 2.Brilinta 180 p.o. times was given in the lab aide, continue Brilinta 90 mg p.o. b.i.d. for 12 apryl hs. 3.The patient is to be seen in clinic for a possible stress test versus FFR of the LAD and circumfle x. PETR/SHY Voice ID: [id number] Report ID: [id number]
[2023-10-05] MEDS: FUROSEMIDE 40 MG TABLET PO SCH (20:33)
[2023-10-05] MEDS: GABAPENTIN 100 MG CAP PO SCH (20:33)
[2023-10-05] MEDS: carvediloL 6.25 MG TAB PO SCH (20:33)
[2023-10-05] MEDS: ATORVASTATIN 40 MG TAB PO SCH (20:33)
[2023-10-05] MEDS: INSULIN REGULAR (HUMAN) 100 UNIT/ML SQ SCH (20:33)
[2023-10-05] MEDS: TICAGRELOR 90 MG TABLET PO SCH (20:33)
[2023-10-05] MEDS: HYDRALAZINE HCL 25 MG TABLET PO SCH (20:34)
[2023-10-05] MEDS ORDERED: carvediloL 6.25 MG TAB PO SCH (21:00)
[2023-10-05] MEDS ORDERED: MORPHINE 2 MG/ML SYR IV PRN (22:32)
[2023-10-06] MEDS: LEVOTHYROXINE SOD 0.05 MG TABLET PO SCH (07:01)
[2023-10-06] MEDS: ASPIRIN 81 MG CHEWABLE TABLET PO SCH (08:17)
[2023-10-06] MEDS: allopurinoL 100 MG TAB PO SCH (08:17)
[2023-10-06] MEDS: ISOSORBIDE MONO SR 30 MG TAB PO SCH (09:00)
[2023-10-06 10:04] LABS: Absolute Basophils 0.1 K/uL (0-0.5); Absolute Eosinophils 0.6 K/uL (0-0.5); Absolute Lymphocytes (CBC) 2.3 K/uL (0.7-4.9); Absolute Neutrophil 11.8 K/uL (1.8-8.0); Basophils % 0.7 % (0-1.3); Eosinophils % 3.6 % (0-4.4); Hematocrit 47.2 % (39.6-49.0); Hemoglobin 14.8 g/dL (13.6-17.9); Lymphocytes % 14.6 % (15.3-44.8); MCHC 31.5 g/dL (32.0-36.0); MCV 85.9 fL (80-100); MPV 7.8 fL (7.6-11.3); Monocytes % 6.4 % (3.3-12.3); Neutrophils % 74.7 % (41.7-73.7); Nucleated Red Blood Cells % 0.2 % (0-0); Platelets 232 thou/uL (152-406); Red Cell Distribution Width 15.2 % (12.1-15.2)
[2023-10-06 11:18] LABS: Platelet Estimate ADEQ; White Blood Cell Scan OK (OK)
[2023-10-06 11:19] LABS: Anisocytosis 2+; Blood Morphology Comment NOTED (NOT SEEN)
[2023-10-06 11:49] LABS: Albumin 2.1 g/dL (3.4-5.0); Albumin/Globulin Ratio 0.4 (1.1-1.8); Anion Gap 11.8 mEq/L (5.0-15.0); Bilirubin Total 0.2 mg/dL (0.2-1.0); Globulin 4.8 g/dL (2.3-3.5); Magnesium 1.9 mg/dL (1.6-2.4); Phosphorus 5.1 mg/dL (2.5-4.9); Potassium 2.8 mEq/L (3.5-5.1); Protein, Total 6.9 g/dL (6.4-8.2)
[2023-10-06] MEDS ORDERED: MORPHINE 4 MG/ML SYR IV PRN (12:53)
[2023-10-06] MEDS: POTASSIUM CL SA 10 MEQ TAB PO ONE ×3 (13:10→22:08)
--- NOTE | 2023-10-06 14:40 | EKG ---
Test Date: 2023-10-05 Test Time: 11:11:27 Turntable Worker: CARLITOS MEASUREMENT RESULTS: Intervals: Rate: 87 WA: 178 QRSD: 114 QT: 388 QTc: 466 [place]: P: 30 WA: 178 QRS: 75 T: 103 INTERPRETIVE STATEMENTS: Normal sinus rhythm ST elevation, consider inferior injury or acute infarct ACUTE ID / STEMI Consider right ventricular involvement in acute inferior infarct Abnormal ECG Compared to ECG 04/26/2023 15:28:39 ST (T wave) deviation now present Myocardial infarct finding now present Myocardial infarct finding now present Sinus arrhythmia no longer present Ventricular premature complex(es) no longer present Electronically Signed On 10-06-23 14:37:41 CDT by Arie Irwin
--- NOTE | 2023-10-06 19:19 | P.PN ---
Date of Service: 10/06/23 Subjective: No acute events overnight Blood pressure much improved ROS: 10 point ROS as noted above, otherwise negative Physical exam GEN: Alert, oriented, NAD HEENT: Normal conjunctiva, sclera anicteric CV: Regular rate and rhythm, no edema Pulm: Nonlabored respirations on room air ABD: Soft, nontender, nondistended, peritoneal dialysis catheter in place MSK: No joint tenderness Integumentary: No rashes Neuro: Normal speech, normal affect Vitals reviewed Problem list STEMI secondary to RCA stenosis S/P PCI 10/04, moderate CAD elsewhere Chronic diastolic congestive heart failure Pulmonary Hypertension Hx Atrial Fibrillation on chronic anticoagulation ESRD on peritoneal dialysis Diabetes mellitus type II Hypothyroidism Hypertension Hyperlipidemia Sleep apnea Obesity Plan STEMI secondary to RCA stenosis S/P PCI 10/04, moderate CAD elsewhere Stent placed to RCA 5/ Will need triple therapy with aspirin, Brilinta, Eliquis for at least 1 year Moderate CAD elsewhere noted, will need follow-up with cardiology for possible further stress test or further intervention Chronic Diastolic CHF Pulmonary Hypertension ESRD on peritoneal dialysis Hypokalemia Continue Lasix 80 mg by mouth twice daily Continue peritoneal dialysis - TTE 02/2023: "1. normal left ventricular ejection fraction 55-60% with normal wall motion 2. Mildconcentric left ventricular hypertrophy 3. mild mitral regurgitation 4. mild tricuspid regurgitation 5. severe pulmonary hypertension with right ventricular systolic pressure of >60mmHg" -Patient recently had peritoneal dialysis cath placement on 09/22/2023. Previously on hemodialysis. 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
--- NOTE | 2023-10-06 19:36 | PN ---
Subjective: Seen at bedside. He is status post STEMI with intervention yesterday to the RCA, doing clinically well. No chest pain. No shortness of breath. No nausea, vomiting, and there is no arrhy thmia. Review of Systems: No chest pain, shortness of breath, orthopnea, cough. No nausea, vomiting, diarrhea. All other syst ems reviewed are negative. Physical Examination: Vital Signs: Reviewed. Head and Neck: Pupils are equal, reactive to light. Intact eye movements. No JVD. No cervical lym phadenopathy. Neck supple. Thyroid is not enlarged. Lungs: Clear to auscultation bilaterally. No rhonchi, rales, or crackles. No accessory muscle use. Heart: Regular rate and rhythm. No extra sounds. Abdomen: Soft, nontender. Bowel sounds positive. No organomegaly. No masses or hernia. No rigidi ty or rebound. Extremities: No edema, clubbing, or cyanosis. Intact pulses. Skin: No rash. No nodule. Neurologic: Alert, awake, oriented x3. No acute focal deficits appreciated. Investigations: BUN 50, creatinine 6.8, and hemoglobin is 14.5. Assessment/recommendation: 1.ST-elevation myocardial infarction, culprit is mid RCA status post successful PCI, doing clinicall y well. Continue aspirin and Brilinta. Observe on telemetry for another 24 hours. Keep him downgra de from ICU and continue beta-mayito with carvedilol, may increase actually the dose to 25 mg twice a day. Increase the carvedilol to 25 mg twice a day and continue baby aspirin and Brilinta as above. 2.Dyslipidemia. Continue Lipitor 40 mg q.h.s. 3.Hypertension. Blood pressure is controlled. Continue current medications and adjustment of the c arvedilol as outlined above. 4.End-stage renal disease, on hemodialysis. 5.Congestive heart failure, diastolic ejection fraction did not get affected, still normal per echo that was done yesterday. If patient continues to be doing well by tomorrow without arrhythmia, he ca n be discharged tomorrow afternoon. SR/MODL Voice ID: [id number] Report ID: [id number]
[2023-10-06] MEDS ORDERED: ACETAMIN/CAFFEINE/BUTALB TAB PO PRN (20:09)
[2023-10-06] MEDS: APIXABAN 2.5 MG TABLET PO SCH (20:21)
[2023-10-06] MEDS: carvediloL 6.25 MG TAB PO SCH (20:21)
[2023-10-06] MEDS: NITROGLYCERIN 0.1 MG/HR (2.5 MG) PATCH TD ONE (22:17)
[2023-10-07 03:43] LABS: Absolute Basophils 0.2 K/uL (0-0.5); Absolute Eosinophils 0.7 K/uL (0-0.5); Absolute Monocytes 0.9 K/uL (0.1-1.3); Absolute Neutrophil 8.7 K/uL (1.8-8.0); Basophils % 1.5 % (0-1.3); Eosinophils % 5.7 % (0-4.4); Hematocrit 30.8 % (39.6-49.0); Hemoglobin 10.4 g/dL (13.6-17.9); MCHC 33.9 g/dL (32.0-36.0); MCV 85.5 fL (80-100); Neutrophils % 69.8 % (41.7-73.7); Nucleated Red Blood Cells % 0.1 % (0-0); Platelets 362 thou/uL (152-406)
[2023-10-07 04:08] LABS: Albumin 2.2 g/dL (3.4-5.0); Albumin/Globulin Ratio 0.4 (1.1-1.8); Anion Gap 13.2 mEq/L (5.0-15.0); Bilirubin Total 0.2 mg/dL (0.2-1.0); Globulin 4.9 g/dL (2.3-3.5); Potassium 3.2 mEq/L (3.5-5.1); Protein, Total 7.1 g/dL (6.4-8.2)
[2023-10-07] MEDS: SPIRONOLACTONE 25 MG TABLET PO SCH (08:33)
[2023-10-07] MEDS: LOSARTAN POTASSIUM 50 MG TABLET PO SCH (08:34)
[2023-10-07] MEDS: FUROSEMIDE 40 MG TABLET PO SCH (08:34)
[2023-10-07] MEDS: POTASSIUM CL SA 10 MEQ TAB PO ONE ×2 (08:35→08:41)
[2023-10-07] MEDS: LINACLOTIDE 145 MCG PO SCH (09:00)
[2023-10-07] MEDS: carvediloL 12.5 MG TAB PO ONE (12:00)
[2023-10-07] MEDS: INSULIN REGULAR (HUMAN) 100 UNIT/ML ONE (12:11)
--- NOTE | 2023-10-07 14:00 | P.DS ---
Admission Date: 10/05/23 Discharge Date: 10/07/23 Primary Care Provider: Dr. Neves Disposition: ROUTINE DISCHARGE Discharge Condition: GOOD Reason for Admission: chest pain Consultations: Cardiology- Dr. Gilbert/Dr. Irwin Nephrology- Dr. Morin Procedures: Left heart cath 10/04 Brief History of Present Illness: 58-year-old male with a PMHx of ESRD on peritoneal dialysis, CHF, pulmonary hypertension atrial fibrillation, DMII, hypothyroidism, HTN, HLD, KEVIN, obesity who presented to the ED with complaints of chest pain. Chest pain has been intermittent for 1 week which became constant today (10/04). Found to have STEMI. Given aspirin, heparin bolus, Brilinta in ED. Cardiology consulted. Taken to [facility] from emergency room. Plan to admit to ICU following cath. Hospital Course: Problem list STEMI secondary to RCA stenosis S/P PCI 10/04, moderate CAD elsewhere Chronic diastolic congestive heart failure Pulmonary Hypertension Hx Atrial Fibrillation on chronic anticoagulation ESRD on peritoneal dialysis Diabetes mellitus type II Hypothyroidism Hypertension Hyperlipidemia Sleep apnea Obesity Patient was admitted to the hospital for STEMI and was taken to [facility]. He was found to have 99% RCA occlusion now with PCI performed of this lesion. He has a known history of A-fib for which he takes Eliquis 2.5 mg twice daily for, he will need to take aspirin, Eliquis and Brilinta until instructed otherwise by cardiology. Patient is on peritoneal dialysis, he was noted to be hypokalemic. This was discussed with his design center consultant who recommends holding patient's Veltassa, starting on spironolactone 25 mg daily and follow-up in 1 week for repeat labs with design center consultant. His home blood pressure medication regimen was also discussed and should be as follows Hydralazine 50 mg by mouth 3 times daily Losartan 100 mg by mouth daily Isosorbide mononitrate 30 mg mouth daily The following new medications are added at discharge Carvedilol 6.25 mg by mouth twice daily-for blood pressure/heart protection Brilinta 90 mg mouth twice daily and aspirin 81 mg/baby aspirin once daily-very important to take to prevent issues with your new stent Spironolactone 25 mg by mouth daily to help with potassium level Please follow-up with your primary care doctor in 1 to 2 weeks Please follow-up with nephrologyDr. Morin in 1 week for repeat BMP to check potassium level Follow-up with cardiology in 2 to 3 weeks Cath report as follows Assessment: 1. STEMI secondary to subacute 99% occluded RCA, status post PCI with Synergy 3.5 x 24 mm drug-eluting stent. 2. Thrombus shift into the RPLV 1 and 2, PTCA was done. 3. Moderate mid LAD disease, moderate mid left circ disease, and cywtngbc-pc-pahwav diagonal disease. They will need stress test versus staged FFR depending on symptoms. 4. Elevated filling pressure. Plan: 1. Aspirin 81 mg daily for life. 2. Brilinta 180 p.o. times was given in the brine room laborer, continue Brilinta 90 mg p.o. b.i.d. for 12 months. 3. The patient is to be seen in clinic for a possible stress test versus FFR of the LAD and circumflex. Vital Signs/Physical Exam: Temp Pulse Resp BP Pulse Ox 97.9 F 86 19 109/54 L 98 10/07/23 12:00 10/07/23 12:00 10/07/23 12:00 10/07/23 12:00 10/07/23 12:00 General: Alert, In no apparent distress, Oriented x3 HEENT: Atraumatic, PERRLA Neck: Supple, JVD not distended Respiratory: Clear to auscultation bilaterally, Normal air movement Cardiovascular: Regular rate/rhythm, Normal S1 S2 Gastrointestinal: Normal bowel sounds, No tenderness Musculoskeletal: No tenderness Integumentary: No rashes Neurological: Normal speech, Normal tone Laboratory Data at Discharge: WBC 12.50 thou/uL (4.3-10.9) H 10/07/23 03:27 Hgb 10.4 g/dL (13.6-17.9) L D 10/07/23 03:27 Hct 30.8 % (39.6-49.0) L 10/07/23 03:27 Plt Count 362 thou/uL (152-406) D 10/07/23 03:27 PT 12.3 SECONDS (9.5-12.5) 10/05/23 11:19 INR 1.12 10/05/23 11:19 APTT 38.9 SECONDS (24.3-36.9) H 10/05/23 11:19 Sodium 133 mEq/L (136-145) L 10/07/23 03:27 Potassium 3.2 mEq/L (3.5-5.1) L 10/07/23 03:27 BUN 53 mg/dL (7-18) H 10/07/23 03:27 Creatinine 7.47 mg/dL (0.70-1.30) H 10/07/23 03:27 Glucose 219 mg/dL (74-106) H 10/07/23 03:27 Phosphorus 5.1 mg/dL (2.5-4.9) H 10/06/23 07:41 Magnesium 1.9 mg/dL (1.6-2.4) 10/06/23 07:41 Total Bilirubin 0.2 mg/dL (0.2-1.0) 10/07/23 03:27 AST 70 U/L (15-37) H 10/07/23 03:27 ALT 27 U/L (16-61) 10/07/23 03:27 Alkaline Phosphatase 103 U/L (45-117) 10/07/23 03:27 Triglycerides 217 mg/dL (<150) H 10/06/23 07:41 Cholesterol 152 mg/dL (<200) 10/06/23 07:41 HDL Cholesterol 28 mg/dL (40-60) L 10/06/23 07:41 Cholesterol/HDL Ratio 5.43 10/06/23 07:41 Home Medications: Allopurinol 100 mg PO DAILY 02/21/23 Furosemide 80 mg PO BID 02/21/23 Gabapentin 100 mg PO TID 02/21/23 Hydralazine [Apresoline*] 50 mg PO TID 02/21/23 Isosorbide Mononitrate [Isosorbide Mononitrate ER] 30 mg PO DAILY 02/21/23 Levothyroxine Sodium 50 mcg PO DAILY 02/21/23 Pravastatin [Pravachol*] 40 mg PO BEDTIME 02/21/23 Apixaban [Eliquis *] 2.5 mg PO BID #60 tab 03/02/23 Glipizide [Glipizide ER] 10 mg PO DAILY 06/28/23 Insulin Aspart [Novolog Flexpen] 20 unit SQ AC 06/28/23 Insulin Glargine,Hum.rec.anlog [Basaglar Kwikpen U-100] 75 unit SQ BEDTIME 06/28/23 Losartan Potassium 25 mg PO DAILY 06/28/23 Aspirin [Aspirin EC] 81 mg PO DAILY #30 tab 10/06/23 Spironolactone [Aldactone*] 25 mg PO DAILY #30 tab 10/06/23 Ticagrelor [Brilinta] 90 mg PO BID #60 tab 10/06/23 carvediloL [Carvedilol] 6.25 mg PO BID #60 tab 10/06/23 New Medications: Spironolactone [Aldactone*] 25 mg PO DAILY #30 tab Aspirin [Aspirin EC] 81 mg PO DAILY #30 tab Ticagrelor [Brilinta] 90 mg PO BID #60 tab carvediloL [Carvedilol] 6.25 mg PO BID #60 tab Physician Discharge Instructions: Patient was admitted to the hospital for STEMI and was taken to [facility]. He was found to have 99% RCA occlusion now with PCI performed of this lesion. He has a known history of A-fib for which he takes Eliquis 2.5 mg twice daily for, he will need to take aspirin, Eliquis and Brilinta until instructed otherwise by cardiology. Patient is on peritoneal dialysis, he was noted to be hypokalemic. This was discussed with his design center consultant who recommends holding patient's Veltassa, starting on spironolactone 25 mg daily and follow-up in 1 week for repeat labs with design center consultant. His home blood pressure medication regimen was also discussed and should be as follows Hydralazine 50 mg by mouth 3 times daily Losartan 100 mg by mouth daily Isosorbide mononitrate 30 mg mouth daily The following new medications are added at discharge Carvedilol 6.25 mg by mouth twice daily-for blood pressure/heart protection Brilinta 90 mg mouth twice daily and aspirin 81 mg/baby aspirin once daily-very important to take to prevent issues with your new stent Spironolactone 25 mg by mouth daily to help with potassium level Please follow-up with your primary care doctor in 1 to 2 weeks Please follow-up with nephrologyDr. Morin in 1 week for repeat BMP to check potassium level Follow-up with cardiology in 2 to 3 weeks Cath report as follows Assessment: 1. STEMI secondary to subacute 99% occluded RCA, status post PCI with Synergy 3.5 x 24 mm drug-eluting stent. 2. Thrombus shift into the RPLV 1 and 2, PTCA was done. 3. Moderate mid LAD disease, moderate mid left circ disease, and xnpixiev-wk-qbanyy diagonal disease. They will need stress test versus staged FFR depending on symptoms. 4. Elevated filling pressure. Plan: 1. Aspirin 81 mg daily for life. 2. Brilinta 180 p.o. times was given in the brine room laborer, continue Brilinta 90 mg p.o. b.i.d. for 12 months. 3. The patient is to be seen in clinic for a possible stress test versus FFR of the LAD and circumflex. Diet: Renal Activity: Ad yeni Followup: Lizbet Morin MD [ACTIVE - CAN ADMIT] - 1-2 Weeks Christiano Gilbert MD [ACTIVE - CAN ADMIT] - 1-2 Weeks Otf Neves DO [Primary Care Provider] - 1-2 Weeks Time spent managing pt's care (in minutes): 35
[2023-10-07 14:35] VITALS: BP 109/54; TEMP 97.9
[2023-10-07 14:41] VITALS: O2SAT 100; BMI 43.6
--- NOTE | 2023-10-07 14:51 | PN ---
Date of Progress Note: 10/07/2023 Subjective: No overnight event. Status post PCI. The patient is cleared for discharge from nephrol ogy point of view. Objective: Vital Signs: Temp 97.9, pulse rate 86, blood pressure 109/54. General: Awake and alert, obese. Neck: Supple. No elevated JVD. Heart: Regular rate and rhythm. Normal S1, S2. Chest: Clear to auscultation bilaterally. No rales or wheezes. Abdomen: Soft, nontender. Has a PD dialysis catheter. Extremities: Trace edema. Lab: White count 12.5, hemoglobin 10.4, platelets 362. Sodium 133, potassium 3.2, BUN 53, creatinin e 7.4. Assessment And Plan: 1.End-stage renal disease. Continue with PD dialysis, renal dose medication. 2.Anemia of chronic disease. Hemoglobin is stable. Monitor H and H. 3.STEMI, status post PCI x2. Continue anti-platelet. Cardiology following. 4.Diabetes mellitus. Continue sliding scale insulin. 5.Obstructive sleep apnea. Continue home CPAP. Thanks for allowing me to participate in the patient's care. Total time I spent 55 minutes including documentation, reviewing labs, and discussing with the patient on the bedside. The patient cleared for discharge from nephrology point of view. TROY/SHY Voice ID: [id number] Report ID: [id number]
[2023-10-07] MEDS ORDERED: carvediloL 25 MG TAB PO SCH (18:00)
--- NOTE | 2023-10-09 06:55 | ECHO ---
HEIGHT: 6 ft 2 in WEIGHT: 340 lb 0 oz DATE OF STUDY: 10/06/[address]: Elisa Shirley NP 2-DIMENSIONAL: YES M.MODE: YES DOPPLER: YES COLOR FLOW: YES TDS: PORTABLE: YES DEFINITY: BUBBLE STUDY: DIAGNOSIS: ST ELEVATION MYOCARDIAL INFARCTION CARDIAC HISTORY: CATHERIZATION: SURGERY: PROSTHETIC VALVE: PACEMAKER: MEASUREMENTS (cm) DIASTOLIC (NORMALS) SYSTOLIC (NORMALS) IVSd 1.6 (0.6-1.2) LA Diam 3.9 (1.9-4.0) LVEF 55-60% LVIDd 3.9 (3.5-5.7) LVIDs 2.3 (2.0-3.5) %FS 41% LVPWd 1.5 (0.6-1.2) Ao Diam 2.8 (2.0-3.7) 2 DIMENSIONAL ASSESSMENT: RIGHT ATRIUM: NORMAL LEFT ATRIUM: NORMAL RIGHT VENTRICLE: NORMAL LEFT VENTRICLE: LEFT VENTRICULAR HYPERTROPHY TRICUSPID VALVE: NORMAL MITRAL VALVE: MILD MITRAL REGURGITATION PULMONIC VALVE: NORMAL AORTIC VALVE: NORMAL PERICARDIAL EFFUSION: NONE AORTIC ROOT: NORMAL LEFT VENTRICULAR WALL MOTION: NORMAL DOPPLER/COLOR FLOW: SEE BELOW COMMENTS: 1. NORMAL LEFT VENTRICULAR EJECTION FRACTION 55-60% 2. NORMAL WALL MOTION 3. MODERATE TO SEVERE CONCENTRIC LEFT VENTRICULAR HYPERTROPHY 4. MILD MITRAL REGURGITATION TECHNOLOGIST: FLAKO BUTTERFIELD
--- NOTE | 2023-10-09 07:54 | CON ---
Date of Consultation: 10/06/2023 Reason For Consultation: End-stage renal disease, fluid overload, and hypokalemia. History Of Present Illness: A 58-year-old man with history of end-stage renal disease on peritoneal dialysis, congestive heart failure, pulmonary hypertension, atrial fibrillation, diabetes mellitus type 2, renal manifestation, hypothyroidism, hypertension, obesity, obstructive sleep apnea. The patient presented to the emergency department with complaints of fatigue and chest pain associate with dyspnea for 1 week, and chest pain became constant prior to this admission on October 04. The patient was found to have acute myocardial infarction, was treated with aspirin and Brilinta in the emergency room and Cardiology was consulted. The patient was taken to lab director for emergent procedure in the interim. The patient is in ICU. He denies complaints today. Review of Systems: General: Denies fever, chills. Eyes: Denies vision changes. Ears, Nose, Mouth and Throat: Denies sore throat, earaches. Respiratory: Denies PND, orthopnea. Cardiovascular: chest pain controlled, currently no chest pain GI: Denies nausea, vomiting. : Denies dysuria, hematuria. All other systems reviewed and all are negative. Past Medical History: Diabetes mellitus, obesity, appendectomy, obstructive sleep apnea, end-stage renal disease, hypothyroidism, atrial fibrillation, pulmonary hypertension, hyperlipidemia anemia due to chronic kidney disease. Social History: Denies tobacco, alcohol, and denies drug. Physical Examination: General: The patient is awake, alert, follows commands. Eyes: Anicteric sclerae. EOMI. Ears, Nose, Mouth, and Throat: Oral mucosa moist. No pallor. Neck: Supple. No bruits. Lungs: Diminished breath sounds at bases. Heart: S1, S2. irregulary irregular. Abdomen: Soft, nontender. No rebound. Extremities: Slight edema present in both legs. No clubbing, no cyanosis. Neurological: Moving extremities. Cranial nerves are intact. Laboratory Data: WBC 11.8, BUN 51, creatinine 6.51, glucose 371. Impression: 1. Acute myocardial infarction. The patient has chronic diastolic congestive heart failure, pulmonary hypertension, atrial fibrillation, and hyperlipidemia. The patient has fluid overload. The patient resume dialysis for volume control and metabolic clearance. 2. Hypokalemia. Continue replacement, patient received KCL supplementation. 3. Acuet myocardial infarction, patient underwent cardiac catheterization, further recommendations from cardiology , cardiology was consulted on October 04. 4. Chronic diastolic congestive heart failure, pulmonary hypertension. Patient will continue dialysis for volume control and metabolic clearance. 5 Hypokalemia, monitor magnesium level, advance replacement according to magnesium level. 6 Congestive heart failure, fluid overload, continue ultrafiltration with dialysis The patient will continue po fluid restriction, advance ultrafiltration to treat fluid overload and congestive heart failure exacerbation. 6. The patient had echo done, which showed normal left ventricular ejection fraction of 55% to 60% with normal wall motion. Mid concentric left ventricle hypertrophy, mild mitral regurgitation, mild tricuspid regurgitation. Severe pulmonary hypertension , fluid overload, continue ultrafiltration with dialysis. 7. Peritoneal dialysis. The patient tolerated the peritoneal dialysis treatment to control volemia and azotemia. Patient has hypokalemia, continue KCL supplementation. 8. Hyperlipidemia, on medication. Continue current treatment. 9. Atrial fibrillation per Cardiology. 10. Diabetes mellitus, continue insulin. 11. Anemia of chronic kidney disease. Hemoglobin level is adequate. EDUARDO on hold. 12. Renal osteodystrophy. Continue binders. JOSE/MODL Voice ID: [id number] Report ID: [id number] MTDD
== END 2023-10-07 14:00 | disposition home or self-care (01) | DRG 321 ==
LOC: ER 10:58 → ERHOLD 12:17 → 3RD-ICU 13:29 → 2ND 10-06 15:49
PROVIDERS: ADMIT Internal Medicine; ATTEND Internal Medicine
PROC: 027034Z Dilation of Coronary Artery, One Artery with Drug-eluting Intraluminal Device, Percutaneous Approach (ICD-10-PCS; principal; 2023-10-05)
PROC: 02713ZZ Dilation of Coronary Artery, Two Arteries, Percutaneous Approach (ICD-10-PCS; 2023-10-05)
PROC: 4A023N7 Measurement of Cardiac Sampling and Pressure, Left Heart, Percutaneous Approach (ICD-10-PCS; 2023-10-05)
PROC: B2111ZZ Fluoroscopy of Multiple Coronary Arteries using Low Osmolar Contrast (ICD-10-PCS; 2023-10-05)
DX: I21.19 ST elevation (STEMI) myocardial infarction involving other coronary artery of inferior wall (principal); N18.6 End stage renal disease; Z68.41 Body mass index [BMI] 40.0-44.9, adult; I50.32 Chronic diastolic (congestive) heart failure; I13.2 Hypertensive heart and chronic kidney disease with heart failure and with stage 5 chronic kidney disease, or end stage renal disease; I16.1 Hypertensive emergency; E66.01 Morbid (severe) obesity due to excess calories; E11.22 Type 2 diabetes mellitus with diabetic chronic kidney disease; E11.42 Type 2 diabetes mellitus with diabetic polyneuropathy; D63.1 Anemia in chronic kidney disease; I48.91 Unspecified atrial fibrillation; E78.5 Hyperlipidemia, unspecified; E87.6 Hypokalemia; N25.0 Renal osteodystrophy; E03.9 Hypothyroidism, unspecified; G47.33 Obstructive sleep apnea (adult) (pediatric); I27.20 Pulmonary hypertension, unspecified; Z99.2 Dependence on renal dialysis; Z79.4 Long term (current) use of insulin; Z79.01 Long term (current) use of anticoagulants; Z99.89 Dependence on other enabling machines and devices; Z90.49 Acquired absence of other specified parts of digestive tract; Z79.02 Long term (current) use of antithrombotics/antiplatelets; Z91.09 Other allergy status, other than to drugs and biological substances; Z91.158 Patient's noncompliance with renal dialysis for other reason; Z79.890 Hormone replacement therapy; Z79.899 Other long term (current) drug therapy
CPT/HCPCS: 36415; 76937; 80048; 80053; 80061; 82947; 83735; 84100; 84132; 84484; 85025; 85347; 85610; 85730; 93005; 93306; 93458; 96374; 99152; 99153; 99285; C1725; C1893; C9600; J0461; J1644; J1815; J2001; J2250; J3010; J7040; Q9966; Q9967

== ENCOUNTER 2024-07-18 14:35 | Inpatient (IN) | payer OTHER ==
--- OUTSIDE RECORDS SUMMARY | 2024-07-18 14:42 | XMS REPORT | Continuity of Care Document ---
Author Name Unknown Address [address] [place] [address] [facility] Address [address] [place] [address] Care Team Providers Care Robot Designer Name Role Phone GenaGenoveva Joya Primary Care Physician Unava ilyogi [facility] B Attending Clinician Unavaila GAVIOTA Cool Attending Clinician Unavailable DAX PRADO Attending Clinician Unavailable [id number] Attending Clinician Unavailable LETHA RODRIGUEZ Attending Clinician Unava ilKENJI Clarke Attending Clinician Unavailable CARLOS NOEL Attending Clinician Unavailable KRYSTYNA JOHNSON Attending Clinician Unavailable [id number] Attending Clinician Unavailable MD CARMENCITA Attending Clinician Unavailab LARA Oneal Attending Clinician Unavailable JACKY MATHEW Attending Clinician Unavailable ROGELIO OJEDA Attending Clinician Unavailable PARRISH HALE Attending Clinician Unavailab muna 1, [facility] Attending Clinic jordyn Unavailable ROBYN CONNELLY Attending Clinician Unavailable Doctor Unassigned, [place] Attending Clinician U BEVERLY Stuart Attending Clinician UnaDIRK Enrique Attending Clinician Unavailable NAOMY CONN Attending Clinician Unavailable [facility] Attending Clinic jordyn Unavailable Letha Rodriguez MD Attending Clinician [phone] Rogelio Ojeda MD Attending Clinician [phone] TOMOGRAPHY, [facility] Attending Cl inician Unavailable Dirk Blanc MD Attending Clinician [phone] LAB47 Attending Clinician Unavailable Krystyna Johnson DO Attending Clinician [phone] NATALIE BACA Attending Clinician Unavailabl e PL, TECH 1 Attending Clinician Unavailable LAWANDA LYLES Attending Clinician Unavaila ble Lawanda Lyles PA-C Attending Clinician + [phone] Vazquez MCLAUGHLIN, Domenica Attending Clinician [phone] CHELLE CUTLER Attending Clinician Unavailable DOMENICA ARIAS Attending Clinician Unavailable [id number] Attending Clinician Unavailable SWAB, [facility] COVID SELF Attending Clinician Unava ilable [facility] Attending Clinician Unavailable NARCISO GUPTA Attending Clinician Unavai KAYLIE Ureña Attending Clinician Unavail able Carlos Noel MD Attending Clinician [phone] DIANA MARROQUIN Attending Clinician Unavailable GERARDO HALE Attending Clinician Unavaila ble Payers Payer Name Policy Type Policy Number Effective Date Expirati on Date Source [employer] GEOFF DUAL COMPLETE CAP(HMO D-SNP OA) 7 [id number] 2021 00:00:00 MEDICAID-NHIC 6 [id number] 2021 00:00:00 KCИван BLUM O 7 [id number] 2020 00:00:00 Problems Condition Name Condition Details Condition Category Status Onset Date Resolution Date Last Treatment Date Treating Clinician Comments Source History of OH (myocardia l infarction ) History of OH (myocardia l infarction ) Disease Active 07-04 00:00: 00 Yanely lee CKD (chronic kidney disease) stage 5, GFR less than 15 ml/min (multi HCC) CKD (chronic kidney disease) stage 5, GFR less than 15 ml/min (multi HCC) Disease Active 07-04 00:00: 00 Yanely Yina jesus Chronic constipati on Chronic constipati on Disease Active 08-28 00:00: 00 Yanely lee Anemia of chronic disease Anemia of chronic disease Disease Active - 00:00: 00 Yanely lee Paroxysmal atrial fibrillati on (multi HCC) Paroxysmal atrial fibrillati on (multi HCC) Disease Active 2022-06 00:00: 00 Yanely lee Chronic anticoagul ation Chronic anticoagul ation Disease Active 2022-06 00:00: 00 Yanely lee Hypercoagu lable state due to atrial fibrillati on (multi HCC) Hypercoagu lable state due to atrial fibrillati on (multi HCC) Disease Active 2022-06 00:00: 00 Yanely lee Psoriasis Psoriasis Disease Active 2022-06 00:00: 00 Yanely lee ESRD (end stage renal disease) on dialysis (multi HCC) ESRD (end stage renal disease) on dialysis (multi HCC) Disease Active 12-16 00:00: 00 Overview: Formattin g of this note might be different from the original. Nephrolog yAgustina lee Well adult exam Well adult exam Disease Active 12-16 00:00: 00 Yanely lee Hypothyroi dism (acquired) Hypothyroi dism (acquired) Disease Active 12-16 00:00: 00 Yanely lee Sleep apnea Sleep apnea Disease Active 12-16 00:00: 00 Overview: Formattin g of this note might be different from the original. uses cpap Yanely lee Stage 5 chronic kidney disease (multi HCC) Stage 5 chronic kidney disease (multi HCC) Disease Active 12-16 00:00: 00 Overview: Formattin g of this note might be different from the original. Nephrolog yAgustina lee Immunodefi ciency due to conditions classified elsewhere (multi HCC) Immunodefi ciency due to conditions classified elsewhere (multi HCC) Disease Active 12-16 00:00: 00 Yanely lee Mild major depression Mild major depression Disease Active 12-16 00:00: 00 Yanely Seybold - Externa l Stable angina Stable angina Disease Active 7-14 00:00: 00 Yanely Seybold - Externa l Stage 4 chronic kidney disease Stage 4 chronic kidney disease Disease Active 9- 00:00: 00 Yanely Seybold - Externa l Class 3 severe obesity due to excess calories with serious comorbidit y and body mass index (BMI) of 40.0 to 44.9 in adult Class 3 severe obesity due to excess calories with serious comorbidit y and body mass index (BMI) of 40.0 to 44.9 in adult Disease Active 08-25 00:00: 00 Yanely Seybold - Externa l Type 2 diabetes mellitus with diabetic neuropathy (multi HCC) Type 2 diabetes mellitus with diabetic neuropathy (multi HCC) Disease Active 08-25 00:00: 00 Yanely Seybold - Externa l Morbid obesity with BMI of 45.0-49.9, adult Morbid obesity with BMI of 45.0-49.9, adult Disease Active 08-25 00:00: 00 Yanely Seybold - Externa l Stage 3a chronic kidney disease Stage 3a chronic kidney disease Disease Active 3 00:00: 00 Yanely Seybold - Externa l Type 2 diabetes mellitus with chronic kidney disease on chronic dialysis, 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, 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) Disease Active 2020-06 0- 00:00: 00 Yanely Binghamold - Externa l Type 2 diabetes mellitus with chronic kidney disease on chronic dialysis, 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, 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) Disease Active 2020-06 0-11 00:00: 00 Yanely Seybold - Externa l Body mass index 40.0-44.9, adult Body mass index 40.0-44.9, adult Disease Active 9-15 00:00: 00 Yanely Jarrett 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, with macular edema, associated with type 2 diabetes mellitus (multi HCC) 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, with macular edema, associated with type 2 diabetes mellitus (multi HCC) Disease Active 02-12 00:00: 00 Yanely Jarrett - Annamariaa jesus 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 associated with type 2 diabetes mellitus 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 associated with type 2 diabetes mellitus Disease Active 02-09 00:00: 00 Yanely Jarrett Diabetic macular edema of left eye with retinopath y associated with type 2 diabetes mellitus Diabetic macular edema of left eye with retinopath y associated with type 2 diabetes mellitus Disease Active 02-09 00:00: 00 Yanely Jarrett 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 associated with type 2 diabetes mellitus 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 associated with type 2 diabetes mellitus Disease Active 02-09 00:00: 00 Yanely Jarrett Diabetic macular edema of left eye with retinopath y associated with type 2 diabetes mellitus Diabetic macular edema of left eye with retinopath y associated with type 2 diabetes mellitus Disease Active 02-09 00:00: 00 Yanely Jarrett Type 2 diabetes mellitus with hyperchole sterolemia (multi HCC) Type 2 diabetes mellitus with hyperchole sterolemia (multi HCC) Disease Active 12-28 00:00: 00 Yanely Jarrett - Externa jesus Essential hypertensi on Essential hypertensi on Disease Active 12-28 00:00: 00 Yanely Bernstein Externa jesus Morbid obesity Morbid obesity Disease Active 12-28 00:00: 00 Yanely Jarrett CKD (chronic kidney disease) stage 3, GFR 30-59 ml/min CKD (chronic kidney disease) stage 3, GFR 30-59 ml/min Disease Active 12-28 00:00: 00 Yanely Jarrett CHF (congestiv e heart failure) (multi HCC) CHF (congestiv e heart failure) (multi HCC) Disease Active 12-28 00:00: 00 Yanely Jarrett - Externa jesus 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) Disease Active 12-28 00:00: 00 Yanely Jarrett - Annamariaa l Hyperchole sterolemia Hyperchole sterolemia Disease Active 12-28 00:00: 00 Yanely Jarrett - Annamariaa l Acute respirator y failure Acute respirator y failure Disease Active 2018-06 00:00: 00 [facility] Morbid obesity Morbid obesity Disease Active 2018-06 00:00: 00 [facility] Hypertensi ve emergency Hypertensi ve emergency Disease Active 2018-06 00:00: 00 [facility] Acute diastolic congestive heart failure Acute diastolic congestive heart failure Disease Active 2018-06 00:00: 00 [facility] KEVIN on CPAP KEVIN on CPAP Disease Active 2018-06 00:00: 00 [facility] Stage 3 chronic kidney disease Stage 3 chronic kidney disease Disease Active 2018-06 00:00: 00 [facility] IDDM (insulin dependent diabetes mellitus) IDDM (insulin dependent diabetes mellitus) Disease Active 2018-06 00:00: 00 [facility] HELEN (acute kidney injury) HELEN (acute kidney injury) Disease Active 2018-06 00:00: 00 [facility] Morbid obesity with body mass index of 40.0-49.9 Morbid obesity with body mass index of 40.0-49.9 Disease Active 2018-06 00:00: 00 [facility] Allergies, Adverse Reactions, Alerts Allergy Name Allergy Type Status Severity Reaction(s) Onset Date Inactive Date Treating Clinician Comments Source NO KNOWN ALLERGIE S Drug Class Active [facility] Social History Social Habit Start Date Stop Date Quantity Comments Source Gender identity 2021-05-19 17:46:57 Identifies as male gender (finding) Yanely Jarrett - External Sexual orientation 2021-05-19 17:46:57 Heterosexual (finding) Yanely Jarrett - External History of Occupation Yanely Jarrett - External History of tobacco use Chews Tobacco Yanely Jarrett - External Exposure to SARS-CoV-2 (event) Not sure Yanely mathias Alcoholic beverage intake 2024-07-04 00:00:00 2024-07-04 00:00:00 Ex-drinker (finding) Yanely Jarrett - External Alcohol intake 2023-08-29 00:00:00 2023-08-29 00:00:00 Ex-drinker (finding) Yanely Jarrett - External History of Social function 2023-02-20 00:00:00 2023-02-20 00:00:00 Yanely Jarrett - External Tobacco use and exposure 2022-12-16 00:00:00 2022-12-16 00:00:00 User of smokeless tobacco Yanely Jarrett - External Education 2022-12-16 00:00:00 2022-12-16 00:00:00 13 Yanely Jarrett - External Alcohol Comment 2022-12-16 00:00:00 2022-12-16 00:00:00 Quit many years ago, 1997 Yanely Jarrett - External Sex 2020-09-23 08:32:42 2020-09-23 08:32:42 Male (finding) Yanely Jarrett - External Sex assigned at 1965 00:00:00 1965 00:00:00 M Yanely Jarrett - External Smoking Status Start Date Stop Date Source Never smoked tobacco Yanely Jarrett - External Ex-smoker 2019-04-09 00:00:00 2019-04-09 00:00:00 [facility] Medications Ordered Medication Name Filled Medication Name Start Date Stop Date Current Medication? Ordering Clinician Indication Dosage Frequency Signature (SIG) Comments Components Source Turmeric 500 MG oral Capsule 07-04 10:08: 15 Yes 1{capsu le} QD Take 1 capsule by mouth daily Yanely lee Ferrous Sulfate (Iron) 325 (65 Fe) MG oral Tablet 07-04 10:08: 15 Yes 325mg QD Take 1 tablet (325 mg total) by mouth daily (with breakfast) . Yanely lee Coenzyme Q10 (Co Q-10) 100 MG oral Capsule 07-04 10:08: 15 Yes 1{capsu le} QD Take 1 capsule by mouth daily. Yanely lee Apixaban (Eliquis) 2.5 MG oral Tablet 07-04 10:08: 15 Yes 2.5mg Q.5D Take 1 tablet (2.5 mg total) by mouth 2 times daily. Yanely lee Methoxy PEG-Epoetin Beta (Mircera) 50 MCG/0.3ML injection Solution Prefilled Syringe 07-04 10:08: 15 Yes [id number] 50ug Inject 50 mcg as directed every other week. Yanely lee Levothyroxi ne Sodium 50 MCG oral Tablet 07-04 00:00: 00 Yes [id number] 50ug QD Take 1 tablet (50 mcg total) by mouth daily. Yanely lee Doxycycline Hyclate 100 MG oral Tablet 2023-06 00:00: 00 Yes [id number] 100mg Q.5D Take 1 tablet (100 mg total) by mouth 2 times daily. Yanely lee Triamcinolo ne Acetonide 0.1 % apply externally Cream 2023-06 00:00: 00 Yes [id number] APPLY TO THE AFFECTED AREA(S) 2 TIMES A DAY. Yanely lee FLUTICASONE PROPIONATE, NASAL, 50 MCG/ACT nasal Suspension 2023-06 00:00: 00 Yes [id number] 50ug QD USE 1 SPRAY IN EACH NOSTRIL ONCE DAILY Yanely lee KETOCONAZOL E, TOPICAL, 2 % apply externally Shampoo 2023-06 00:00: 00 Yes [id number] APPLY 10 ML TO AFFECTED AREA TWICE WEEKLY Yanely lee Allopurinol 100 MG oral Tablet 03-01 00:00: 00 Yes 100mg QD take 1 tablet by mouth daily Yanely lee Linzess 145 MCG oral Capsule 02-28 00:00: 00 Yes [id number] 145ug QD take 1 capsule by mouth daily Yanely lee Pravastatin Sodium 40 MG oral Tablet 01-10 00:00: 00 07-04 00:00 :00 No [id number] 40mg take 1 tablet by mouth at bedtime Yanely lee Insulin Glargine (Basaglar KwikPen) 100 UNIT/ML subcutaneou s Solution Pen-injecto r 7-05 00:00: 00 Yes [id number] INJECT 85 UNITS UNDER THE SKIN EVERY EVENING. Yanely lee Methoxy PEG-Epoetin Beta (Mircera) 50 MCG/0.3ML injection Solution Prefilled Syringe 08-28 09:59: 44 Yes [id number] 50ug Inject 50 mcg as directed every other week. Yanely lee Losartan Potassium 25 MG oral Tablet 08-28 09:56: 40 08-28 00:00 :00 No 25mg Take 1 tablet (25 mg total) by mouth daily. Yanely lee Turmeric 500 MG oral Capsule 08-28 09:47: 44 Yes 1{capsu le} Take 1 capsule by mouth daily Yanely lee Ferrous Sulfate (Iron) 325 (65 Fe) MG oral Tablet 08-28 09:47: 44 Yes 325mg Take 1 tablet (325 mg total) by mouth daily (with breakfast) . Yanely lee Coenzyme Q10 (Co Q-10) 100 MG oral Capsule 08-28 09:47: 44 Yes 1{capsu le} Take 1 capsule by mouth daily. Yanely lee Apixaban (Eliquis) 2.5 MG oral Tablet 08-28 09:47: 44 Yes 2.5mg Take 1 tablet (2.5 mg total) by mouth 2 times daily. Yanely lee Losartan Potassium (COZAAR) 100 MG oral Tablet 08-28 00:00: 00 Yes [id number] 100mg QD Take 1 tablet (100 mg total) by mouth daily. Yanely lee Clonidine (CATAPRES) 0.2 MG oral Tablet 08-28 00:00: 00 Yes [id number] .2mg Q.5D Take 1 tablet (0.2 mg total) by mouth 2 times daily as needed (Elevated BP). Yanely lee Patiromer Sorbitex Calcium (Veltassa) 8.4 g oral Pack 08-28 00:00: 00 Yes [id number] QD Take 1 dose pack by mouth daily. Yanely lee Turmeric 500 MG oral Capsule 08-06 08:42: 50 Yes 1{capsu le} Take 1 capsule by mouth daily Yanely lee Ferrous Sulfate (Iron) 325 (65 Fe) MG oral Tablet 08-06 08:42: 50 Yes 325mg Take 1 tablet (325 mg total) by mouth daily (with breakfast) . Yanely lee Coenzyme Q10 (Co Q-10) 100 MG oral Capsule 08-06 08:42: 50 Yes 1{capsu le} Take 1 capsule by mouth daily. Yanely lee Apixaban (Eliquis) 2.5 MG oral Tablet 08-06 08:42: 50 Yes 2.5mg Take 1 tablet (2.5 mg total) by mouth 2 times daily. Yanely lee Losartan Potassium 25 MG oral Tablet 08-06 08:42: 50 Yes 25mg Take 1 tablet (25 mg total) by mouth daily. Yanely lee Insulin Glargine (Basaglar KwikPen) 100 UNIT/ML subcutaneou s Solution Pen-injecto r 08-06 00:00: 00 Yes [id number] 80 units SQ nightly. Yanely lee Insulin Pen Needle 31G X 5 MM does not apply [facility] 08-06 00:00: 00 Yes [id number] Takes insulin QID. Yanely lee Insulin Aspart (NovoLOG FlexPen) 100 UNIT/ML subcutaneou s Solution Pen-injecto r 08-06 00:00: 00 Yes [id number] 20U Inject 20 units into the skin 3 times daily (before meals). Yanely lee GlipiZIDE 10 MG oral TABLET SR 24 HR 08-06 00:00: 00 Yes 10mg Take 1 tablet (10 mg total) by mouth every morning. Yanely ele Gabapentin 100 MG oral Capsule 08-06 00:00: 00 Yes [id number] 100mg Q.[id number] 3D Take 1 capsule (100 mg total) by mouth 3 times daily. Yanely lee Levothyroxi ne Sodium 50 MCG oral Tablet 08-06 00:00: 00 07-04 00:00 :00 No [id number] 50ug QD Take 1 tablet (50 mcg total) by mouth daily. Yanely lee Amlodipine Besylate (NORVASC) 5 MG oral Tablet 06-25 00:00: 00 08-28 00:00 :00 No 5mg Take 1 tablet (5 mg total) by mouth daily. Yanely lee Turmeric 500 MG oral Capsule 06-15 11:40: 30 Yes 1{capsu le} Take 1 capsule by mouth daily Yanely lee Ferrous Sulfate (Iron) 325 (65 Fe) MG oral Tablet 06-15 11:40: 30 Yes 325mg Take 1 tablet (325 mg total) by mouth daily (with breakfast) . Yanely lee Coenzyme Q10 (Co Q-10) 100 MG oral Capsule 06-15 11:40: 30 Yes 1{capsu le} Take 1 capsule by mouth daily. Yanely lee Apixaban (Eliquis) 2.5 MG oral Tablet 06-15 11:40: 30 Yes 2.5mg Take 1 tablet (2.5 mg total) by mouth 2 times daily. Yanely lee Losartan Potassium 25 MG oral Tablet 06-15 11:40: 30 Yes 25mg Take 1 tablet (25 mg total) by mouth daily. Yanely lee Insulin Glargine (Basaglar KwikPen) 100 UNIT/ML subcutaneou s Solution Pen-injecto r 06-15 00:00: 00 Yes [id number] 80 units SQ nightly. Yanely lee Insulin Aspart (NovoLOG FlexPen) 100 UNIT/ML subcutaneou s Solution Pen-injecto r 2024-0 1-11 00:00: 00 Yes [id number] 20U Inject 20 units into the skin 3 times daily (before meals). Yanely lee Allopurinol 100 MG oral Tablet 06-15 00:00: 00 Yes 100mg Take 1 tablet (100 mg total) by mouth daily. Yanely lee GlipiZIDE 10 MG oral TABLET SR 24 HR 06-15 00:00: 00 08-06 00:00 :00 No 10mg Take 1 tablet (10 mg total) by mouth every morning. Yanely lee Veltassa 8.4 g oral Pack 06-14 00:00: 00 08-28 00:00 :00 No Yanely lee NovoLOG FlexPen 100 UNIT/ML subcutaneou s Solution Pen-injecto r 06-14 00:00: 00 06-15 00:00 :00 No Yanely lee Ginkgo Biloba 120 MG oral Capsule 2022-06 08:11: 44 05-30 00:00 :00 No 1{capsu le} Take 1 capsule by mouth daily. Yanely lee Pamela, Zingiber officinalis , (Pamela Root) 550 MG oral Capsule 2022-06 08:11: 37 05-30 00:00 :00 No 1{capsu le} Take 1 capsule by mouth daily. Yanely lee Turmeric 500 MG oral Capsule 2022-06 08:09: 35 Yes 1{capsu le} Take 1 capsule by mouth daily Yanely lee Ferrous Sulfate (Iron) 325 (65 Fe) MG oral Tablet 2022-06 08:09: 35 Yes 325mg Take 1 tablet (325 mg total) by mouth daily (with breakfast) . Yanely lee Coenzyme Q10 (Co Q-10) 100 MG oral Capsule 2022-06 08:09: 35 Yes 1{capsu le} Take 1 capsule by mouth daily. Yanely lee Apixaban (Eliquis) 2.5 MG oral Tablet 2022-06 08:09: 35 Yes 2.5mg Take 1 tablet (2.5 mg total) by mouth 2 times daily. Yanely lee Losartan Potassium 25 MG oral Tablet 2022-06 08:09: 35 Yes 25mg Take 1 tablet (25 mg total) by mouth daily. Yanely lee Turmeric 500 MG oral Capsule 2022-06 08:28: 54 Yes 1{capsu le} Take 1 capsule by mouth daily Yanely lee Ferrous Sulfate (Iron) 325 (65 Fe) MG oral Tablet 2022-06 08:28: 54 Yes 325mg Take 1 tablet (325 mg total) by mouth daily (with breakfast) . Yanely lee Coenzyme Q10 (Co Q-10) 100 MG oral Capsule 2022-06 08:28: 54 Yes 1{capsu le} Take 1 capsule by mouth daily. Yanely lee Pamela, Zingiber officinalis , (Pamela Root) 550 MG oral Capsule 2022-06 08:28: 54 Yes 1{capsu le} Take 1 capsule by mouth daily. Yanely lee Ginkgo Biloba 120 MG oral Capsule 2022-06 08:28: 54 Yes 1{capsu le} Take 1 capsule by mouth daily. Yanely lee Apixaban (Eliquis) 2.5 MG oral Tablet 2022-06 08:28: 54 Yes 2.5mg Take 1 tablet (2.5 mg total) by mouth 2 times daily. Yanely lee Losartan Potassium 25 MG oral Tablet 2022-06 08:28: 54 Yes 25mg Take 1 tablet (25 mg total) by mouth daily. Yanely lee Cholecalcif lacey (Vitamin D3) 25 MCG (1000 UT) oral Capsule 2022-06 10:54: 52 05-01 00:00 :00 No 1{capsu le} Take 1 capsule by mouth daily Yanely lee Losartan Potassium 25 MG oral Tablet 2022-06 10:49: 24 Yes 25mg Take 1 tablet (25 mg total) by mouth daily. Yanely lee Apixaban (Eliquis) 2.5 MG oral Tablet 2022-06 10:48: 54 Yes 2.5mg Take 1 tablet (2.5 mg total) by mouth 2 times daily. Yanely lee Sodium Bicarbonate 650 MG oral Tablet 2022-06 10:46: 33 05-01 00:00 :00 No 650mg Take 1 tablet (650 mg total) by mouth 3 times daily. Yanely lee Multiple Vitamin (MULTI VITAMIN MENS OR) 2022-06 10:46: 17 05-01 00:00 :00 No [id number] 1{tbl} Take 1 tablet by mouth nightly Yanely lee METAMUCIL FIBER OR 2022-06 10:46: 08 05-01 00:00 :00 No 2{tbl} Take 2 tablets by mouth 3 times daily Yanely lee Magnesium Citrate oral Solution 2022-06 10:45: 58 05-01 00:00 :00 No 296mL Take 296 mL by mouth once. Yanely lee Magnesium 500 MG oral Capsule 2022-06 10:45: 55 05-01 00:00 :00 No 1{capsu le} Take 1 capsule by mouth daily. Yanely lee Cranberry 450 MG oral Capsule 2022-06 10:45: 11 05-01 00:00 :00 No 1{capsu le} Take 1 capsule by mouth 2 times daily Yanely lee Turmeric 500 MG oral Capsule 2022-06 10:36: 45 Yes 1{capsu le} Take 1 capsule by mouth daily Yanely lee Ferrous Sulfate (Iron) 325 (65 Fe) MG oral Tablet 2022-06 10:36: 45 Yes 325mg Take 1 tablet (325 mg total) by mouth daily (with breakfast) . Yanely lee Coenzyme Q10 (Co Q-10) 100 MG oral Capsule 2022-06 10:36: 45 Yes 1{capsu le} Take 1 capsule by mouth daily. Yanely lee Pamela, Zingiber officinalis , (Pamela Root) 550 MG oral Capsule 2022-06 10:36: 45 Yes 1{capsu le} Take 1 capsule by mouth daily. Yanely lee Ginkgo Biloba 120 MG oral Capsule 2022-06 10:36: 45 Yes 1{capsu le} Take 1 capsule by mouth daily. Yanely lee KETOCONAZOL E, TOPICAL, 2 % apply externally Shampoo 2022-06 00:00: 00 Yes [id number] 10mL Apply 10 mL topically twice a week. Yanely lee FLUTICASONE PROPIONATE, NASAL, 50 MCG/ACT nasal Suspension 2022-06 00:00: 00 Yes [id number] 50ug Use 1 spray (50 mcg total) in each nostril daily. Yanely lee Furosemide 80 MG oral Tablet 2022-06 00:00: 00 Yes [id number] 80mg Q.5D Take 1 tablet (80 mg total) by mouth 2 times daily. Yanely lee Triamcinolo ne Acetonide 0.1 % apply externally Cream 2022-06 00:00: 00 05-30 05:59 :00 No [id number] Apply to affected skin twice daily. Yanely lee Cholecalcif lacey (Vitamin D3) 25 MCG (1000 UT) oral Capsule 2022-06 00:00: 00 05-30 00:00 :00 No [id number] 1{capsu le} Take 1 capsule by mouth three times a week. Yanely lee Carvedilol 25 MG oral Tablet 2022-06 00:00: 00 Yes [id number] 25mg Take 1 tablet (25 mg total) by mouth in the morning and 1 tablet (25 mg total) in the evening. Take with meals. Yanely lee Allopurinol 100 MG oral Tablet 2022-06 00:00: 00 Yes 100mg TAKE 1 TABLET BY MOUTH DAILY Yanely lee GlipiZIDE 10 MG oral TABLET SR 24 HR 02-27 00:00: 00 Yes TAKE ONE TABLET BY MOUTH EVERY MORNING Yanely lee Linzess 145 MCG oral Capsule 02-20 00:00: 00 Yes [id number] TAKE ONE CAPSULE BY MOUTH DAILY Yanely lee Benzonatate (Tessalon Perles) 100 MG oral Capsule 02-08 00:00: 00 05-01 00:00 :00 No [id number] 08800 100mg Q.[id number] 3D Take 1 capsule (100 mg total) by mouth 3 times daily as needed for cough. Yanely lee METAMUCIL FIBER OR 02-02 09:34: 24 Yes 2{tbl} Take 2 tablets by mouth 3 times daily Yanely lee Turmeric 500 MG oral Capsule 02-02 09:34: 24 Yes 1{capsu le} Take 1 capsule by mouth daily Yanely lee Cranberry 450 MG oral Capsule 02-02 09:34: 24 Yes 1{capsu le} Take 1 capsule by mouth 2 times daily Yanely lee Cholecalcif lacey (Vitamin D3) 25 MCG (1000 UT) oral Capsule 02-02 09:34: 24 Yes 1{capsu le} Take 1 capsule by mouth daily Yanely lee Ferrous Sulfate (Iron) 325 (65 Fe) MG oral Tablet 02-02 09:34: 24 Yes 325mg Take 1 tablet (325 mg total) by mouth daily (with breakfast) . Yanely lee Coenzyme Q10 (Co Q-10) 100 MG oral Capsule 02-02 09:34: 24 Yes 1{capsu le} Take 1 capsule by mouth daily. Yanely lee Pamela, Zingiber officinalis , (Pamela Root) 550 MG oral Capsule 02-02 09:34: 24 Yes 1{capsu le} Take 1 capsule by mouth daily. Yanely lee Ginkgo Biloba 120 MG oral Capsule 02-02 09:34: 24 Yes 1{capsu le} Take 1 capsule by mouth daily. Yanely lee Magnesium 500 MG oral Capsule 02-02 09:34: 24 Yes 1{capsu le} Take 1 capsule by mouth daily. Yanely lee Magnesium Citrate oral Solution 02-02 09:34: 24 Yes 296mL Take 296 mL by mouth once. Yanely lee Multiple Vitamin (MULTI VITAMIN MENS OR) 02-02 09:34: 24 Yes [id number] 1{tbl} Take 1 tablet by mouth nightly Yanely lee Sodium Bicarbonate 650 MG oral Tablet 02-02 09:34: 24 Yes 650mg Take 1 tablet (650 mg total) by mouth 3 times daily. Yanely lee predniSONE (DELTASONE) 10 MG oral tablet 02-02 00:00: 00 05-01 00:00 :00 No 1 po tid for 7 days, 1 po bid for 7 days, 1 po daily for 7 days, 1 po every other day until finished. Yanely lee Fluocinolon e Acetonide (DermOtic) 0.01 % otic Oil 02-02 00:00: 00 05-01 00:00 :00 No 3 drops each ear bid prn. Yanely lee Magnesium Citrate oral Solution 01-30 08:55: 31 Yes 296mL Take 296 mL by mouth once. Yanely lee Multiple Vitamin (MULTI VITAMIN MENS OR) 01-30 08:55: 31 Yes [id number] 1{tbl} Take 1 tablet by mouth nightly Yanely lee Sodium Bicarbonate 650 MG oral Tablet 01-30 08:55: 31 Yes 650mg Take 1 tablet (650 mg total) by mouth 3 times daily. Yanely lee METAMUCIL FIBER OR 01-30 08:55: 31 Yes 2{tbl} Take 2 tablets by mouth 3 times daily Yanely lee Turmeric 500 MG oral Capsule 01-30 08:55: 31 Yes 1{capsu le} Take 1 capsule by mouth daily Yanely lee Cranberry 450 MG oral Capsule 01-30 08:55: 31 Yes 1{capsu le} Take 1 capsule by mouth 2 times daily Yanely lee Cholecalcif lacey (Vitamin D3) 25 MCG (1000 UT) oral Capsule 01-30 08:55: 31 Yes 1{capsu le} Take 1 capsule by mouth daily Yanely lee Ferrous Sulfate (Iron) 325 (65 Fe) MG oral Tablet 01-30 08:55: 31 Yes 325mg Take 1 tablet (325 mg total) by mouth daily (with breakfast) . Yanely lee Allopurinol 100 MG oral Tablet 01-27 00:00: 00 Yes 100mg TAKE ONE TABLET BY MOUTH DAILY Yanely lee Magnesium Citrate oral Solution 01-23 09:08: 52 Yes 296mL Take 296 mL by mouth once. Yanely lee Multiple Vitamin (MULTI VITAMIN MENS OR) 01-23 09:08: 52 Yes [id number] 1{tbl} Take 1 tablet by mouth nightly Yanely lee Sodium Bicarbonate 650 MG oral Tablet 01-23 09:08: 52 Yes 650mg Take 1 tablet (650 mg total) by mouth 3 times daily. Yanely lee METAMUCIL FIBER OR 01-23 09:08: 52 Yes 2{tbl} Take 2 tablets by mouth 3 times daily Yanely lee Turmeric 500 MG oral Capsule 01-23 09:08: 52 Yes 1{capsu le} Take 1 capsule by mouth daily Yanely lee Cranberry 450 MG oral Capsule 01-23 09:08: 52 Yes 1{capsu le} Take 1 capsule by mouth 2 times daily Yanely lee Cholecalcif lacey (Vitamin D3) 25 MCG (1000 UT) oral Capsule 01-23 09:08: 52 Yes 1{capsu le} Take 1 capsule by mouth daily Yanely lee Ferrous Sulfate (Iron) 325 (65 Fe) MG oral Tablet 01-23 09:08: 52 Yes 325mg Take 1 tablet (325 mg total) by mouth daily (with breakfast) . Yanely lee Carvedilol 25 MG oral Tablet 12-26 00:00: 00 Yes [id number] TAKE ONE TABLET BY MOUTH TWICE A DAY WITH MEALS Yanely lee Commack-3 Fatty Acids (Fish Oil Concentrate ) 300 MG oral Capsule 12-16 09:19: 37 12-16 00:00 :00 No [id number] 1{capsu le} Take 1 capsule by mouth daily Yanely lee Ergocalcife rol 1.25 MG (80364 UT) oral Capsule 12-16 09:19: 37 12-16 00:00 :00 No [id number] Take 50,000 units by mouth once a week Yanely lee Ferrous Sulfate (Iron) 325 (65 Fe) MG oral Tablet 12-16 09:07: 04 Yes 325mg Take 1 tablet (325 mg total) by mouth daily (with breakfast) Yanely lee Cholecalcif lacey (Vitamin D3) 25 MCG (1000 UT) oral Capsule 12-16 09:06: 49 Yes 1{capsu le} Take 1 capsule by mouth daily Yanely lee Cranberry 450 MG oral Capsule 12-16 09:06: 16 Yes 1{capsu le} Take 1 capsule by mouth 2 times daily Yanely lee Turmeric 500 MG oral Capsule 12-16 09:05: 42 Yes 1{capsu le} Take 1 capsule by mouth daily Yanely lee METAMUCIL FIBER OR 12-16 09:04: 41 Yes 2{tbl} Take 2 tablets by mouth 3 times daily Yanely lee Amlodipine Besylate (NORVASC) 5 MG oral Tablet 12-16 08:48: 14 12-16 00:00 :00 No 5mg Take 1 tablet (5 mg total) by mouth 2 times daily Take 2 tabs orally daily Yanely lee Isosorbide Mononitrate CR 30 MG oral TABLET SR 24 HR 12-16 00:00: 00 Yes [id number] 30mg QD Take 1 tablet (30 mg total) by mouth daily Yanely lee Commack-3 Fatty Acids (Fish Oil Concentrate ) 300 MG oral Capsule 12-16 00:00: 00 Yes [id number] 1{capsu le} Q.5D Take 1 capsule by mouth 2 times daily Yanely lee Insulin Glargine (Basaglar KwikPen) 100 UNIT/ML subcutaneou s Solution Pen-injecto r 12-16 00:00: 00 06-15 00:00 :00 No [id number] 75 units SQ nightly Yanely lee Insulin Aspart (NovoLOG) 100 UNIT/ML injection Solution 12-16 00:00: 00 06-15 00:00 :00 No [id number] INJECT UNDER THE SKIN 20 UNITS THREE TIMES A DAY BEFORE MAJOR MEALS Yanely lee Ergocalcife rol 1.25 MG (05245 UT) oral Capsule 12-16 00:00: 00 05-01 00:00 :00 No [id number] 91812J Take 1 capsule (50,000 units total) by mouth once a month Yanely lee Furosemide 40 MG oral Tablet 12-16 00:00: 00 05-01 00:00 :00 No [id number] 60mg Take 1.5 tablets (60 mg total) by mouth 2 times daily Yanely lee Azithromyci n 250 MG oral Tablet 12-16 00:00: 00 12-22 04:59 :00 No [id number] Take 2 tablets by mouth on day 1 then 1 tablet by mouth daily for 4 days thereafter . Yanely lee Zoster Vac Recomb Adjuvanted (Shingrix) 50 MCG/0.5 mL Intramuscul ar Recon Suspension 12-16 00:00: 00 12-17 04:59 :00 No [id number] 50ug Inject 0.5 mL (50 mcg total) into the muscle once for 1 dose Yanely lee Isosorbide Mononitrate CR 30 MG oral TABLET SR 24 HR 12-15 00:00: 00 12-16 00:00 :00 No Yanely lee Pravastatin Sodium 40 MG oral Tablet 10-25 00:00: 00 Yes [id number] 40mg Take 1 tablet (40 mg total) by mouth nightly AT BEDTIME Yanely lee Gabapentin 100 MG oral Capsule 10-25 00:00: 00 08-06 00:00 :00 No [id number] 100mg Take 1 capsule (100 mg total) by mouth 3 times daily Yanely lee Insulin Pen Needle 31G X 5 MM does not apply Misc 10-25 00:00: 00 08-06 00:00 :00 No [id number] Takes insulin QID Yanely lee Levothyroxi ne Sodium 50 MCG oral Tablet 10-25 00:00: 00 08-06 00:00 :00 No [id number] 50ug Take 1 tablet (50 mcg total) by mouth daily Yanely lee Continuous Blood Gluc Transmit (Dexcom G5 Mobile Transmitter ) does not apply Misc 10-25 00:00: 00 05-30 00:00 :00 No [id number] Check BS in the am fasting, before meals and as needed. Yanely lee Empaglifloz in (Jardiance) 10 MG oral Tablet 10-25 00:00: 00 05-01 00:00 :00 No [id number] 1 tablet po Q daily Yanely lee Insulin Aspart (NovoLOG) 100 UNIT/ML injection Solution 10-25 00:00: 00 12-16 00:00 :00 No [id number] INJECT UNDER THE SKIN 15 UNITS THREE TIMES A DAY BEFORE MAJOR MEALS Yanely lee Insulin Glargine (Basaglar KwikPen) 100 UNIT/ML subcutaneou s Solution Pen-injecto r 10-25 00:00: 00 12-16 00:00 :00 No [id number] 85 units SQ nightly Yanely lee Carvedilol 25 MG oral Tablet 09-16 00:00: 00 Yes [id number] TAKE ONE TABLET BY MOUTH TWICE A DAY WITH MEALS Yanely lee Allopurinol 100 MG oral Tablet -06 00:00: 00 12-16 00:00 :00 No [id number] TAKE ONE TABLET BY MOUTH DAILY Yanely lee Magnesium Citrate oral Solution 07-21 14:09: 58 Yes 296mL Take 296 mL by mouth once Yanely lee Commack-3 Fatty Acids (Fish Oil Concentrate ) 300 MG oral Capsule 07-21 14:09: 58 Yes [id number] 1{capsu le} Take 1 capsule by mouth daily Yanely lee Multiple Vitamin (MULTI VITAMIN MENS OR) 07-21 14:09: 58 Yes [id number] 1{tbl} Take 1 tablet by mouth nightly Yanely lee Ergocalcife rol 1.25 MG (62422 UT) oral Capsule 07-21 14:09: 58 Yes [id number] Take 50,000 units by mouth once a week Yanely lee Sodium Bicarbonate 650 MG oral Tablet 07-21 14:09: 58 Yes 650mg Take 650 mg by mouth 3 times daily Yanely lee Continuous Blood Gluc Transmit (Dexcom G5 Mobile Transmitter ) does not apply Misc 07-21 00:00: 00 Yes [id number] Check BS in the am fasting, before meals and as needed. Yanely lee Continuous Blood Gluc Quality Assurance Intern (Dexcom G5 Quality Assurance Intern Kit) does not apply Device 07-21 00:00: 00 05-30 00:00 :00 No [id number] Check BS in the am fasting, before meals and as needed. Yanely lee Azithromyci n 250 MG oral Tablet 16 00:00: 00 07-27 05:59 :00 No [id number] Take 2 tablets by mouth on day 1 then 1 tablet by mouth daily for 4 days thereafter . Yanely lee Amlodipine Besylate (NORVASC) 5 MG oral Tablet 07-15 00:00: 00 Yes Yanely lee Ostomy Supplies (Skin Tac Adhesive Barrier Wipe) does not apply Misc 06-28 00:00: 00 05-30 00:00 :00 No Use as directed for continuous glucose monitoring with Halle system Yanely lee Continuous Blood Gluc Sensor (FreeStyle Halle 14 Day Sensor) does not apply Misc 06-28 00:00: 00 07-21 00:00 :00 No Use as directed for continuous glucose monitoring with Halle sytem Yanely lee Glucose Blood (FreeStyle Precision Isai Test) in vitro Strip 06-28 00:00: 00 07-21 00:00 :00 No Use as directed for continuous glucose monitoring with Halle system Yanely lee Levothyroxi ne Sodium 50 MCG oral Tablet 06-21 00:00: 00 Yes [id number] 50ug Take 1 tablet (50 mcg total) by mouth daily Yanely lee Magnesium Citrate oral Solution 2021-06 10:45: 13 Yes 296mL Take 296 mL by mouth once Yanely lee Commack-3 Fatty Acids (Fish Oil Concentrate ) 300 MG oral Capsule 2021-06 10:45: 13 Yes [id number] 1{capsu le} Take 1 capsule by mouth daily Yanely lee Multiple Vitamin (MULTI VITAMIN MENS OR) 2021-06 10:45: 13 Yes [id number] 1{tbl} Take 1 tablet by mouth nightly Yanely lee Ergocalcife rol 1.25 MG (06729 UT) oral Capsule 2021-06 10:45: 13 Yes [id number] Take 50,000 units by mouth once a week Yanely lee Sodium Bicarbonate 650 MG oral Tablet 2021-06 10:45: 13 Yes 650mg Take 650 mg by mouth 3 times daily Yanely lee Fenugreek 500 MG oral Capsule 2021-06 10:44: 10 05-16 00:00 :00 No 2{capsu le} Take 2 capsules by mouth 2 times daily Yanely lee Biotin 5 MG oral Capsule 2021-06 10:43: 59 05-16 00:00 :00 No 1{capsu le} Take 1 capsule by mouth daily Yanely lee Insulin Glargine (Basaglar KwikPen) 100 UNIT/ML subcutaneou s Solution Pen-injecto r 2021-06 00:00: 00 Yes [id number] 75 units SQ nightly Yanely lee Insulin Pen Needle 31G X 5 MM does not apply Misc 2021-06 00:00: 00 Yes [id number] Takes insulin QID Yanely lee Empaglifloz in (Jardiance) 10 MG oral Tablet 2021-06 00:00: 00 Yes [id number] 1 tablet po Q daily Yanely lee Furosemide 80 MG oral Tablet 2021-06 00:00: 00 Yes [id number] Yanely lee Clonidine (CATAPRES) 0.2 MG oral Tablet 2021-06 00:00: 00 08-28 00:00 :00 No [id number] .2mg Take 1 tablet (0.2 mg total) by mouth 3 times daily. Yanely lee Bevacizumab (AVASTIN) 100 mg/4 mL - Physician Imelda thomas ([id number]) 2021-06 15:15: 00 04-22 15:32 :00 No [id number] 1.25mg Yanely lee Magnesium Citrate oral Solution 2021-06 09:04: 34 Yes 296mL Take 296 mL by mouth once Yanely lee Fenugreek 500 MG oral Capsule 2021-06 09:04: 34 Yes 2{capsu le} Take 2 capsules by mouth 2 times daily Yanely lee Commack-3 Fatty Acids (Fish Oil Concentrate ) 300 MG oral Capsule 2021-06 09:04: 34 Yes [id number] 1{capsu le} Take 1 capsule by mouth daily Yanely lee Multiple Vitamin (MULTI VITAMIN MENS OR) 2021-06 09:04: 34 Yes [id number] 1{tbl} Take 1 tablet by mouth nightly Yanely lee Ergocalcife rol 1.25 MG (20028 UT) oral Capsule 2021-06 09:04: 34 Yes [id number] Take 50,000 units by mouth once a week Yanely lee Biotin 5 MG oral Capsule 2021-06 09:04: 34 Yes 1{capsu le} Take 1 capsule by mouth daily Yanely lee Sodium Bicarbonate 650 MG oral Tablet 2021-06 09:04: 34 Yes 650mg Take 650 mg by mouth 3 times daily Yanely lee Carvedilol 25 MG oral Tablet 2021-06 00:00: 00 Yes [id number] TAKE ONE TABLET BY MOUTH TWICE A DAY WITH MEALS Yanely lee Insulin Aspart (NovoLOG) 100 UNIT/ML injection Solution 2021-06 00:00: 00 Yes INJECT UNDER THE SKIN 15 UNITS THREE TIMES DAILY BEFOFE MAJOR MEALS Yanely lee Bevacizumab (AVASTIN) 100 mg/4 mL - Physician Administere d ([id number]) 2021-06 14:30: 00 03-11 14:20 :00 No [id number] 1.25mg Yanely lee Magnesium Citrate oral Solution 2021-06 0 08:50: 12 Yes 296mL Take 296 mL by mouth once Yanely lee Fenugreek 500 MG oral Capsule 2021-06 0 08:50: 12 Yes 2{capsu le} Take 2 capsules by mouth 2 times daily Yanely lee Commack-3 Fatty Acids (Fish Oil Concentrate ) 300 MG oral Capsule 2021-06 007 08:50: 12 Yes [id number] 1{capsu le} Take 1 capsule by mouth daily Yanely lee Multiple Vitamin (MULTI VITAMIN MENS OR) 2021-06 007 08:50: 12 Yes [id number] 1{tbl} Take 1 tablet by mouth nightly Yanely lee Ergocalcife rol 1.25 MG (29331 UT) oral Capsule 2021-06 007 08:50: 12 Yes [id number] Take 50,000 units by mouth once a week Yanely lee Biotin 5 MG oral Capsule 2021-06 007 08:50: 12 Yes 1{capsu le} Take 1 capsule by mouth daily Yanely lee Sodium Bicarbonate 650 MG oral Tablet 2021-06 0 08:50: 12 Yes 650mg Take 650 mg by mouth 3 times daily Yanely lee Magnesium Citrate oral Solution 2021-06 0 08:37: 32 Yes 296mL Take 296 mL by mouth once Yanely lee Fenugreek 500 MG oral Capsule 2021-06 006 08:37: 32 Yes 2{capsu le} Take 2 capsules by mouth 2 times daily Yanely lee Commack-3 Fatty Acids (Fish Oil Concentrate ) 300 MG oral Capsule 2021-06 0 08:37: 32 Yes [id number] 1{capsu le} Take 1 capsule by mouth daily Yanely lee Multiple Vitamin (MULTI VITAMIN MENS OR) 2021-06 0 08:37: 32 Yes [id number] 1{tbl} Take 1 tablet by mouth nightly Yanely lee Ergocalcife rol 1.25 MG (98651 UT) oral Capsule 2021-06 006 08:37: 32 Yes [id number] Take 50,000 units by mouth once a week Yanely lee Biotin 5 MG oral Capsule 2021-06 0 08:37: 32 Yes 1{capsu le} Take 1 capsule by mouth daily Yanely lee Sodium Bicarbonate 650 MG oral Tablet 2021-06 006 08:37: 32 Yes 650mg Take 650 mg by mouth 3 times daily Yanely lee Linzess 145 MCG oral Capsule 02-21 00:00: 00 Yes [id number] TAKE ONE CAPSULE BY MOUTH DAILY Yanely lee prednisoLON E Acetate 1 % ophthalmic Suspension 01-25 00:00: 00 05-16 00:00 :00 No 1[drp] Place 1 drop into the left eye 4 times daily Yanely lee KETOROLAC TROMETHAMIN E, OPHTH, (Acular) 0.5 % ophthalmic Solution 01-25 00:00: 00 05-16 00:00 :00 No 1[drp] Place 1 drop into the left eye 4 times daily Yanely lee Gatifloxaci n (Zymaxid) 0.5 % ophthalmic Solution 01-25 00:00: 00 05-16 00:00 :00 No 1[drp] Place 1 drop into the left eye 4 times daily Yanely lee Gabapentin 100 MG oral Capsule 01-24 00:00: 00 Yes [id number] 100mg Take 1 capsule (100 mg total) by mouth 3 times daily Yanely lee Pravastatin Sodium 40 MG oral Tablet 01-24 00:00: 00 Yes [id number] 40mg Take 1 tablet (40 mg total) by mouth nightly AT BEDTIME Yanely lee Empaglifloz in (Jardiance) 10 MG oral Tablet 01-24 00:00: 00 05-16 00:00 :00 No [id number] 1 tablet po Q daily Yanely lee Insulin Glargine (Basaglar KwikPen) 100 UNIT/ML subcutaneou s Solution Pen-injecto r 01-24 00:00: 00 05-16 00:00 :00 No [id number] 85 units SQ nightly Yanely lee Insulin Pen Needle 31G X 5 MM does not apply Misc 01-24 00:00: 00 05-16 00:00 :00 No [id number] Takes insulin QID Yanely lee Carvedilol 25 MG oral Tablet 12-29 00:00: 00 Yes TAKE ONE TABLET BY MOUTH TWICE A DAY WITH A MEAL Yanely lee Allopurinol 100 MG oral Tablet 12-29 00:00: 00 Yes [id number] TAKE ONE TABLET BY MOUTH DAILY Yanely lee GlipiZIDE 10 MG oral TABLET SR 24 HR 12-29 00:00: 00 Yes TAKE ONE TABLET BY MOUTH EVERY MORNING Yanely lee Potassium 99 MG oral Tablet 10-29 07:59: 40 Yes 1{tbl} Take 1 tablet by mouth daily Yanely Jarrett GLUCOSAMINE -FISH OIL-EPA-DHA OR 10-29 07:59: 40 Yes 1{capsu le} Take 1 capsule by mouth daily Yanely Jarrett Aspirin 81 MG oral Capsule 10-29 07:59: 40 Yes 1{capsu le} Take 1 capsule by mouth daily Yanely Jarrett Magnesium Citrate oral Solution 10-29 07:59: 40 Yes 296mL Take 296 mL by mouth once Yanely Jarrett Fenugreek 500 MG oral Capsule 10-29 07:59: 40 Yes 2{capsu le} Take 2 capsules by mouth 2 times daily Yanely Jarrett Commack-3 Fatty Acids (Fish Oil Concentrate ) 300 MG oral Capsule 10-29 07:59: 40 Yes [id number] 1{capsu le} Take 1 capsule by mouth daily Yanely Jarrett prednisoLON E Acetate 1 % ophthalmic Suspension 10-29 00:00: 00 Yes 1[drp] Place 1 drop into the right eye 4 times daily Yanely Jarrett KETOROLAC TROMETHAMIN E, OPHTH, (Acular) 0.5 % ophthalmic Solution 10-29 00:00: 00 Yes 1[drp] Place 1 drop into the right eye 4 times daily Yanely Jarrett Gatifloxaci n (Zymaxid) 0.5 % ophthalmic Solution 10-29 00:00: 00 Yes 1[drp] Place 1 drop into the right eye 4 times daily Yanely Jarrett Bevacizumab (AVASTIN) 100 mg/4 mL - Physician Imelda thomas ([id number]) 09-24 14:15: 00 09-24 14:11 :00 No [id number] 1.25mg Yanely Seybold Potassium 99 MG oral Tablet 09-24 08:21: 31 Yes 1{tbl} Take 1 tablet by mouth daily Yanely Seybold GLUCOSAMINE -FISH OIL-EPA-DHA OR 09-24 08:21: 31 Yes 1{capsu le} Take 1 capsule by mouth daily Yanely Seybold Aspirin 81 MG oral Capsule 09-24 08:21: 31 Yes 1{capsu le} Take 1 capsule by mouth daily Yanely Seybold Magnesium Citrate oral Solution 09-24 08:21: 31 Yes 296mL Take 296 mL by mouth once Yanely Seybold Fenugreek 500 MG oral Capsule 09-24 08:21: 31 Yes 2{capsu le} Take 2 capsules by mouth 2 times daily Yanely ybold Commack-3 Fatty Acids (Fish Oil Concentrate ) 300 MG oral Capsule 09-24 08:21: 31 Yes [id number] 1{capsu le} Take 1 capsule by mouth daily Yanely Seybold Potassium 99 MG oral Tablet 08-25 08:04: 08 Yes 1{tbl} Take 1 tablet by mouth daily Yanely Seybold GLUCOSAMINE -FISH OIL-EPA-DHA OR 08-25 08:04: 08 Yes 1{capsu le} Take 1 capsule by mouth daily Yanely Seybold Aspirin 81 MG oral Capsule 08-25 08:04: 08 Yes 1{capsu le} Take 1 capsule by mouth daily Yanely Seybold Magnesium Citrate oral Solution 08-25 08:04: 08 Yes 296mL Take 296 mL by mouth once Yanely Seybold Fenugreek 500 MG oral Capsule 08-25 08:04: 08 Yes 2{capsu le} Take 2 capsules by mouth 2 times daily Yanely Seybold Commack-3 Fatty Acids (Fish Oil Concentrate ) 300 MG oral Capsule 08-25 08:04: 08 Yes [id number] 1{capsu le} Take 1 capsule by mouth daily Yanely Jarrett Azithromyci n 250 MG oral Tablet 08-25 00:00: 00 Yes [id number] Take 2 tablets by mouth on day 1 then 1 tablet by mouth daily for 4 days thereafter . Yanely Jarrett cloNIDine 0.1 mg tablet 08-18 00:00: 00 Yes [id number] .1mg Take 1 tablet by mouth 2 (two) times daily. [facility] Bevacizumab (AVASTIN) 100 mg/4 mL - Physician Administere d ([id number]) 08-13 16:00: 00 08-13 16:05 :00 No [id number] 1.25mg Yanely Jarrett Potassium 99 MG oral Tablet 08-13 10:03: 24 Yes 1{tbl} Take 1 tablet by mouth daily Yanely Jarrett GLUCOSAMINE -FISH OIL-EPA-DHA OR 08-13 10:03: 24 Yes 1{capsu le} Take 1 capsule by mouth daily Yanely Jarrett Aspirin 81 MG oral Capsule 08-13 10:03: 24 Yes 1{capsu le} Take 1 capsule by mouth daily Yanely Jarrett Magnesium Citrate oral Solution 08-13 10:03: 24 Yes 296mL Take 296 mL by mouth once Yanely Jarrett Fenugreek 500 MG oral Capsule 08-13 10:03: 24 Yes 2{capsu le} Take 2 capsules by mouth 2 times daily Yanely Jarrett Commack-3 Fatty Acids (Fish Oil Concentrate ) 300 MG oral Capsule 08-13 10:03: 24 Yes [id number] 1{capsu le} Take 1 capsule by mouth daily Yanely Ahmadiybold Potassium 99 MG oral Tablet 08-09 10:52: 24 Yes 1{tbl} Take 1 tablet by mouth daily Yanely Jarrett GLUCOSAMINE -FISH OIL-EPA-DHA OR 08-09 10:52: 24 Yes 1{capsu le} Take 1 capsule by mouth daily Yanely Jarrett Aspirin 81 MG oral Capsule 08-09 10:52: 24 Yes 1{capsu le} Take 1 capsule by mouth daily Yanely Jarrett Magnesium Citrate oral Solution 08-09 10:52: 24 Yes 296mL Take 296 mL by mouth once Yanely Jarrett Fenugreek 500 MG oral Capsule 08-09 10:52: 24 Yes 2{capsu le} Take 2 capsules by mouth 2 times daily Yanely Jarrett Commack-3 Fatty Acids (Fish Oil Concentrate ) 300 MG oral Capsule 08-09 10:52: 24 Yes [id number] 1{capsu le} Take 1 capsule by mouth daily Yanely Jarrett Insulin Aspart (NovoLOG) 100 UNIT/ML subcutaneou s Solution 08-09 00:00: 00 Yes [id number] 15 units SQ before major meals TID Yanely Jarrett Empaglifloz in (Jardiance) 10 MG oral Tablet 08-09 00:00: 00 Yes [id number] 1 tablet po Q daily Yanely Jarrett Gabapentin 100 MG oral Capsule 08-09 00:00: 00 Yes [id number] 100mg Take 1 capsule (100 mg total) by mouth 3 times daily Yanely Jarrett Insulin Glargine (Basaglar KwikPen) 100 UNIT/ML subcutaneou s Solution Pen-injecto r 08-09 00:00: 00 Yes [id number] 85 units SQ nightly Yanely Jarrett Insulin Pen Needle 31G X 5 MM does not apply Mis 08-09 00:00: 00 Yes [id number] Takes insulin QID Yanely Jarrett GlipiZIDE 10 MG oral TABLET SR 24 HR 08-09 00:00: 00 Yes [id number] 10mg Take 1 tablet (10 mg total) by mouth in the morning. Yanely Jarrett Insulin Aspart (NovoLOG) 100 UNIT/ML subcutaneou s Solution 08-09 00:00: 00 Yes [id number] 15 units SQ before major meals TID Yanely Jarrett - Externa l Allopurinol 100 MG oral Tablet 08-03 00:00: 00 Yes [id number] 100mg Take 1 tablet (100 mg total) by mouth daily Yanely Jarrett Pravastatin Sodium 40 MG oral Tablet 08-03 00:00: 00 Yes [id number] TAKE ONE TABLET BY MOUTH EVERY NIGHT AT BEDTIME Yanely Jarrett Carvedilol 25 MG oral Tablet 08-03 00:00: 00 Yes 25mg Take 1 tablet (25 mg total) by mouth 2 times daily (with meals) Yanely Jarrett Gabapentin 100 MG oral Capsule 08-03 00:00: 00 08-09 00:00 :00 No 100mg Take 1 capsule (100 mg total) by mouth 3 times daily Yanely Jarrett Bevacizumab (AVASTIN) 100 mg/4 mL - Physician Administere d ([id number]) 07-02 14:15: 00 07-02 14:29 :00 No [id number] 1.25mg Yanely Jarrett Potassium 99 MG oral Tablet 07-02 08:24: 50 Yes 1{tbl} Take 1 tablet by mouth daily Yanely Jarrett GLUCOSAMINE -FISH OIL-EPA-DHA OR 07-02 08:24: 50 Yes 1{capsu le} Take 1 capsule by mouth daily Yanely Jarrett Aspirin 81 MG oral Capsule 07-02 08:24: 50 Yes 1{capsu le} Take 1 capsule by mouth daily Yanely Jarrett Magnesium Citrate oral Solution 07-02 08:24: 50 Yes 296mL Take 296 mL by mouth once Yanely Jarrett Fenugreek 500 MG oral Capsule 07-02 08:24: 50 Yes 2{capsu le} Take 2 capsules by mouth 2 times daily Yanely Jarrett Commack-3 Fatty Acids (Fish Oil Concentrate ) 300 MG oral Capsule 07-02 08:24: 50 Yes [id number] 1{capsu le} Take 1 capsule by mouth daily Yanely Jarrett Bevacizumab (AVASTIN) 100 mg/4 mL - Physician Administere d ([id number]) 2020-06 14:45: 00 05-21 14:34 :00 No [id number] 1.25mg Yanely Binghamold Potassium 99 MG oral Tablet 2020-06 08:04: 02 Yes 1{tbl} Take 1 tablet by mouth daily Yanely Jarrett GLUCOSAMINE -FISH OIL-EPA-DHA OR 2020-06 08:04: 02 Yes 1{capsu le} Take 1 capsule by mouth daily Yanely Jarrett Aspirin 81 MG oral Capsule 2020-06 08:04: 02 Yes 1{capsu le} Take 1 capsule by mouth daily Yanely Jarrett Magnesium Citrate oral Solution 2020-06 08:04: 02 Yes 296mL Take 296 mL by mouth once Yanely Jarrett Fenugreek 500 MG oral Capsule 2020-06 08:04: 02 Yes 2{capsu le} Take 2 capsules by mouth 2 times daily Yanely Jarrett Commack-3 Fatty Acids (Fish Oil Concentrate ) 300 MG oral Capsule 2020-06 08:04: 02 Yes [id number] 1{capsu le} Take 1 capsule by mouth daily Yanely Jarrett Allopurinol 100 MG oral Tablet 2020-06 00:00: 00 Yes [id number] 100mg Take 1 tablet (100 mg total) by mouth daily Yanely Jarrett Gabapentin 100 MG oral Capsule 2020-06 00:00: 00 Yes 100mg Take 1 capsule (100 mg total) by mouth 3 times daily Yanely Jarrett Bevacizumab (AVASTIN) 100 mg/4 mL - Physician Administere d ([id number]) 2020-06 14:15: 00 04-23 14:19 :00 No [id number] 1.25mg Yanely Jarrett Potassium 99 MG oral Tablet 2020-06 08:17: 22 Yes 1{tbl} Take 1 tablet by mouth daily Yanely Jarrett GLUCOSAMINE -FISH OIL-EPA-DHA OR 2020-06 08:17: 22 Yes 1{capsu le} Take 1 capsule by mouth daily Yanely Jarrett Aspirin 81 MG oral Capsule 2020-06 08:17: 22 Yes 1{capsu le} Take 1 capsule by mouth daily Yanely Jarrett Magnesium Citrate oral Solution 2020-06 08:17: 22 Yes 296mL Take 296 mL by mouth once Yanely Jarrett Fenugreek 500 MG oral Capsule 2020-06 08:17: 22 Yes 2{capsu le} Take 2 capsules by mouth 2 times daily Yanely Jarrett Commack-3 Fatty Acids (Fish Oil Concentrate ) 300 MG oral Capsule 2020-06 08:17: 22 Yes [id number] 1{capsu le} Take 1 capsule by mouth daily Yanely Jarrett Allopurinol 100 MG oral Tablet 2020-06 08:17: 22 Yes [id number] 100mg Take 100 mg by mouth daily Yanely Jarrett Bevacizumab (AVASTIN) 100 mg/4 mL - Physician Administere d ([id number]) 2020-06 14:30: 00 03-19 14:23 :00 No [id number] 1.25mg Yanely Jarrett Potassium 99 MG oral Tablet 2020-06 09:06: 12 Yes 1{tbl} Take 1 tablet by mouth daily Yanely Jarrett GLUCOSAMINE -FISH OIL-EPA-DHA OR 2020-06 09:06: 12 Yes 1{capsu le} Take 1 capsule by mouth daily Yanely Jarrett Aspirin 81 MG oral Capsule 2020-06 09:06: 12 Yes 1{capsu le} Take 1 capsule by mouth daily Yanely Jarrett Magnesium Citrate oral Solution 2020-06 09:06: 12 Yes 296mL Take 296 mL by mouth once Yanely Jarrett Fenugreek 500 MG oral Capsule 2020-06 09:06: 12 Yes 2{capsu le} Take 2 capsules by mouth 2 times daily Yanely Jarrett Commack-3 Fatty Acids (Fish Oil Concentrate ) 300 MG oral Capsule 2020-06 09:06: 12 Yes [id number] 1{capsu le} Take 1 capsule by mouth daily Yanely Jarrett Allopurinol 100 MG oral Tablet 2020-06 09:06: 12 Yes [id number] 100mg Take 100 mg by mouth daily Yanely Jarrett Insulin Aspart (NovoLOG) 100 UNIT/ML subcutaneou s Solution 2020-06 013 00:00: 00 08-09 00:00 :00 No [id number] 15 units SQ before major meals TID Yanely Jarrett Insulin Glargine (Basaglar KwikPen) 100 UNIT/ML subcutaneou s Solution Pen-injecto r 2020-06 0 00:00: 00 08-09 00:00 :00 No 85 units SQ nightly Yanely Jarrett Potassium 99 MG oral Tablet 2020-06 14:59: 04 Yes 1{tbl} Take 1 tablet by mouth daily Yanely Jarrett GLUCOSAMINE -FISH OIL-EPA-DHA OR 2020-06 14:59: 04 Yes 1{capsu le} Take 1 capsule by mouth daily Yanely Jarrett Aspirin 81 MG oral Capsule 2020-06 14:59: 04 Yes 1{capsu le} Take 1 capsule by mouth daily Yanely Jarrett Magnesium Citrate oral Solution 2020-06 14:59: 04 Yes 296mL Take 296 mL by mouth once Yanely Jarrett Fenugreek 500 MG oral Capsule 2020-06 14:59: 04 Yes 2{capsu le} Take 2 capsules by mouth 2 times daily Yanely Jarrett Commack-3 Fatty Acids (Fish Oil Concentrate ) 300 MG oral Capsule 2020-06 14:59: 04 Yes [id number] 1{capsu le} Take 1 capsule by mouth daily Yanely Jarrett Allopurinol 100 MG oral Tablet 2020-06 14:59: 04 Yes [id number] 100mg Take 100 mg by mouth daily Yanely Jarrett Insulin Glargine, 1 Unit Dial, (Jose L SolAldoar) 300 UNIT/ML subcutaneou s Solution Pen-injecto r 2020-06 00:00: 00 Yes [id number] 80 units SQ once nightly at bedtime Yanely Jarrett Insulin Aspart (NovoLOG FlexPen) 100 UNIT/ML subcutaneou s Solution Pen-injecto r 2020-06 00:00: 00 Yes [id number] 15 units SQ before major meals TID Yanely Jarrett Pravastatin Sodium 40 MG oral Tablet 2020-06 00:00: 00 Yes [id number] 40mg Take 1 tablet (40 mg total) by mouth nightly Yanely Jarrett Insulin Pen Needle 31G X 5 MM does not apply [facility] [place] 2020-06 00:00: 00 08-09 00:00 :00 No [id number] Takes insulin QID Yanely Jarrett Empaglifloz in (Jardiance) 10 MG oral Tablet 2020-06 00:00: 00 08-09 00:00 :00 No [id number] 1 tablet po Q daily Yanely Jarrett Na Sulfate-K Sulfate-Mg Sulf (Suprep Bowel Prep Kit) 17.5-3.13-1 .6 GM/177ML oral Solution 02-18 00:00: 00 Yes USE DIRECTED Yanely Jarrett Fenugreek 500 MG oral Capsule 02-17 15:01: 30 Yes 2{capsu le} Take 2 capsules by mouth 2 times daily Yanely Jarrett Potassium 99 MG oral Tablet 02-17 15:00: 22 Yes 1{tbl} Take 1 tablet by mouth daily Yanely Jarrett GLUCOSAMINE -FISH OIL-EPA-DHA OR 02-17 15:00: 22 Yes 1{capsu le} Take 1 capsule by mouth daily Yanely Jarrett Aspirin 81 MG oral Capsule 02-17 15:00: 22 Yes 1{capsu le} Take 1 capsule by mouth daily Yanely Jarrett Magnesium Citrate oral Solution 02-17 15:00: 22 Yes 296mL Take 296 mL by mouth once Yanely Jarrett SitaGLIPtin -MetFORMIN HCl 50-1000 MG oral TABLET SR 24 HR 02-17 14:56: 19 02-17 00:00 :00 No 2{tbl} Take 2 tablets by mouth Yanely Jarrett linaCLOtide (Linzess) 145 MCG oral Capsule 02-17 00:00: 00 Yes [id number] 145ug Take 1 capsule (145 mcg total) by mouth daily Yanely Jarrett Sod Picosulfate -Mag Ox-Cit Acd (Clenpiq) 10-3.5-12 MG-GM -GM/160ML oral Solution 02-17 00:00: 00 Yes [id number] Instructio n given to patient in clinic. Use as directed by provider during office visit. Yanely Jarrett Bevacizumab (AVASTIN) 100 mg/4 mL - Physician Administere d ([id number]) 02-12 19:15: 00 02-12 19:17 :00 No [id number] 1.25mg Yanely Jarrett SitaGLIPtin -MetFORMIN HCl 50-1000 MG oral TABLET SR 24 HR 02-12 13:38: 10 Yes 2{tbl} Take 2 tablets by mouth Yanely Jarrett Pravastatin Sodium 40 MG oral Tablet 12-24 00:00: 00 Yes Yanely Jarrett Gabapentin 100 MG oral Capsule 12-10 00:00: 00 Yes 1{capsu le} Take 1 capsule by mouth 2 times daily Yanely Jarrett Janumet 50-1000 MG oral Tablet 12-04 00:00: 00 Yes 1{tbl} Take 1 tablet by mouth daily Yanely Jarrett Duloxetine HCl [address] [facility] 12-04 00:00: 00 Yes Yanely Jarrett Janumet 50-1000 MG oral Tablet 12-04 00:00: 00 03-15 00:00 :00 No 2{tbl} Take 2 tablets by mouth daily Yanely Jarrett Clonidine HCl 0.1 MG oral Tablet 11-07 00:00: 00 07-21 00:00 :00 No 1{tbl} Take 1 tablet by mouth 2 times daily Yanely Jarrett - Externa l Insulin Glargine, 1 Unit Dial, (Jose L Bateman) 300 UNIT/ML subcutaneou s Solution Pen-injecto r 4-05 00:00: 00 03-07 04:59 :00 No 100U/d Inject 100 units/day into the skin daily Yanely Jarrett carvedilol 25 mg tablet 06-19 12:05: 06 06-19 00:00 :00 No 25mg Take 25 mg by mouth 2 (two) times daily with meals. [facility] SITagliptin -metformin (JANUMET XR) 50-1,000 mg per tablet 06-19 11:36: 23 Yes 2{tbl} Take 2 tablets by mouth at bedtime. [facility] primidone 50 mg tablet 06-19 11:20: 29 Yes 50mg Take 50 mg by mouth 2 (two) times daily. [facility] amitriptyli ne 10 mg tablet 06-19 11:20: 29 Yes 10mg Take 10 mg by mouth daily. [facility] allopurinol 100 mg tablet 06-19 11:20: 29 Yes 100mg Take 100 mg by mouth daily. [facility] insulin glargineglorec.[email or web address] (TOUJEO MAX U-300 SOLOSTAR SC) 06-19 11:20: 29 Yes 80U inject 80 Units under the skin every morning. [facility] pravastatin 40 mg tablet 06-19 00:00: 00 Yes [id number] 40mg Take 1 tablet by mouth at bedtime. [facility] hydrALAZINE HCl 50 MG oral Tablet 06-19 00:00: 00 Yes 50mg [id number] 3D Take 1 tablet (50 mg total) by mouth 3 times daily. Yanely lee Carvedilol 25 MG oral Tablet 06-19 00:00: 00 Yes 25mg Take 25 mg by mouth 2 times daily (with meals) Yanely Jarrett Furosemide 40 MG oral Tablet 06-19 00:00: 00 12-16 00:00 :00 No 40mg Take 40 mg by mouth 2 times daily 1 in am and 1 in pm Yanely lee cloNIDine 0.1 mg tablet 06-19 00:00: 00 08-18 00:00 :00 No [id number] .1mg Take 1 tablet by mouth 2 (two) times daily. [facility] cloNIDine 0.1 mg tablet 06-16 00:00: 00 06-19 00:00 :00 No .1mg Take 1 tablet by mouth 2 (two) times daily. Need appointmen t and EKG for further refills. Please contact office. [facility] furosemide 40 mg tablet 06-16 00:00: 00 06-19 00:00 :00 No 40mg Take 1 tablet by mouth daily. [facility] gabapentin 100 mg capsule 06-10 00:00: 00 Yes 3 (three) times daily. [facility] pravastatin 40 mg tablet 2019-06 2-16 00:00: 00 06-19 00:00 :00 No [id number] 40mg Take 1 tablet by mouth at bedtime. [facility] hydrALAZINE 50 mg tablet 5-18 00:00: 00 06-19 00:00 :00 No 50mg Take 1 tablet by mouth every 8 (eight) hours. [facility] Immunizations Ordered Immunization Name Filled Immunization Name Date Status Comments Source Pneumococcal Conjugate 15 (Vaxneuvance) 2022-12-16 00:00:00 Completed Yanely Seybold - External Pneumococcal Conjugate 15 (Vaxneuvance) 2022-12-16 00:00:00 Completed Yanely Seybold - External Pneumococcal Conjugate 15 (Vaxneuvance) 2022-12-16 00:00:00 Completed Yanely Seybold - External Pneumococcal Conjugate 15 (Vaxneuvance) 2022-12-16 00:00:00 Completed Yanely Seybold - External Influenza Virus Vaccine, age 6 months and up 2022-02-03 00:00:00 Completed Yanely Seybold - External COVID-19 VACCINE PFIZER 12+ ([place] cap) 2022-02-03 00:00:00 Completed Yanely Seybold - External Influenza Virus Vaccine, age 6 months and up 2022-02-03 00:00:00 Completed Yanely Seybold - External COVID-19 VACCINE PFIZER 12+ ([place] cap) 2022-02-03 00:00:00 Completed Yanely Seybold - External Influenza Virus Vaccine, age 6 months and up 2022-02-03 00:00:00 Completed Yanely Seybold - External COVID-19 VACCINE PFIZER 12+ ([place] cap) 2022-02-03 00:00:00 Completed Yanely Seybold - External Influenza Virus Vaccine, age 6 months and up 2022-02-03 00:00:00 Completed Yanely Seybold - External COVID-19 VACCINE PFIZER 12+ ([place] cap) 2022-02-03 00:00:00 Completed Yanely Seybold - External Influenza Virus Vaccine, age 6 months and up 2022-02-03 00:00:00 Completed Yanely Seybold - External COVID-19 VACCINE PFIZER 12+ ([place] cap) 2022-02-03 00:00:00 Completed Yanely Seybold - External Influenza Virus Vaccine, age 6 months and up 2022-02-03 00:00:00 Completed Yanely Seybold - External COVID-19 VACCINE PFIZER 12+ ([place] cap) 2022-02-03 00:00:00 Completed Yanely Seybold - External Influenza Virus Vaccine, age 6 months and up 2022-02-03 00:00:00 Completed Yanely Seybold - External COVID-19 VACCINE PFIZER 12+ ([place] cap) 2022-02-03 00:00:00 Completed Yanely Seybold - External Influenza Virus Vaccine, age 6 months and up 2022-02-03 00:00:00 Completed Yanely Seybold - External COVID-19 VACCINE PFIZER 12+ ([place] cap) 2022-02-03 00:00:00 Completed Yaneyl Seybold - External Influenza Virus Vaccine, age 6 months and up 2022-02-03 00:00:00 Completed Yanely Seybold - External COVID-19 VACCINE PFIZER 12+ ([place] cap) 2022-02-03 00:00:00 Completed Yanely Seybold - External Covid-19 Vaccine Moderna (Spikevax), Mrna-lnp, Jesse Protein, Pf 2020-09-09 00:00:00 Completed Yanely Seybold - External Covid-19 Vaccine (Moderna), Mrna-lnp, Jesse Protein, Pf, 100 Mcg/0.5ml,IM 2020-09-09 00:00:00 Completed Yanely Seybold Covid-19 Vaccine (Moderna), Mrna-lnp, Jesse Protein, Pf, 100 Mcg/0.5ml,IM 2020-09-09 00:00:00 Completed Yanely Seybold Covid-19 Vaccine (Moderna), Mrna-lnp, Jesse Protein, Pf, 100 Mcg/0.5ml,IM 2020-09-09 00:00:00 Completed Yanely Seybold Covid-19 Vaccine (Moderna), Mrna-lnp, Jesse Protein, Pf, 100 Mcg/0.5ml,IM 2020-09-09 00:00:00 Completed Yanely Seybold Covid-19 Vaccine (Moderna), Mrna-lnp, Jesse Protein, Pf, 100 Mcg/0.5ml,IM 2020-09-09 00:00:00 Completed Yanelyshala Binghamold Covid-19 Vaccine (Moderna), Mrna-lnp, Jesse Protein, Pf, 100 Mcg/0.5ml,IM 2020-09-09 00:00:00 Completed Yanely Zacheryold Covid-19 Vaccine Moderna (Spikevax), Mrna-lnp, Jesse Protein, Pf 2020-09-09 00:00:00 Completed Yanely Seybold Covid-19 Vaccine Moderna (Spikevax), Mrna-lnp, Jesse Protein, Pf 2020-09-09 00:00:00 Completed Yanely Seybold Covid-19 Vaccine Moderna (Spikevax), Mrna-lnp, Jesse Protein, Pf 2020-09-09 00:00:00 Completed Yanely Sealexold Covid-19 Vaccine Moderna (Spikevax), Mrna-lnp, Jesse Protein, Pf 2020-09-09 00:00:00 Completed Yanely Seybold Covid-19 Vaccine Moderna (Spikevax), Mrna-lnp, Jesse Protein, Pf 2020-09-09 00:00:00 Completed Yanely Ahmadiybold Covid-19 Vaccine (Moderna), Mrna-lnp, Jesse Protein, Pf, 100 Mcg/0.5ml,IM 2020-09-09 00:00:00 Completed Yanely Seybold Covid-19 Vaccine Moderna (Spikevax), Mrna-lnp, Jesse Protein, Pf 2020-09-09 00:00:00 Completed Yanely Seybold - External Covid-19 Vaccine Moderna (Spikevax), Mrna-lnp, Jesse Protein, Pf 2020-09-09 00:00:00 Completed Yanely Seybold - External Covid-19 Vaccine Moderna (Spikevax), Mrna-lnp, Jesse Protein, Pf 2020-09-09 00:00:00 Completed Yanely Seybold - External Covid-19 Vaccine Moderna (Spikevax), Mrna-lnp, Jesse Protein, Pf 2020-09-09 00:00:00 Completed Yanely Seybold - External Covid-19 Vaccine Moderna (Spikevax), Mrna-lnp, Jesse Protein, Pf 2020-09-09 00:00:00 Completed Yanely Seybold - External Covid-19 Vaccine (Moderna), Mrna-lnp, Jesse Protein, Pf, 100 Mcg/0.5ml,IM 2020-09-09 00:00:00 Completed Yanely Seybold Covid-19 Vaccine Moderna (Spikevax), Mrna-lnp, Jesse Protein, Pf 2020-09-09 00:00:00 Completed Yanely Seybold - External Covid-19 Vaccine Moderna (Spikevax), Mrna-lnp, Jesse Protein, Pf 2020-09-09 00:00:00 Completed Yanely Seybold - External Covid-19 Vaccine Moderna (Spikevax), Mrna-lnp, Jesse Protein, Pf 2020-09-09 00:00:00 Completed Yanely Seybold - External Covid-19 Vaccine Moderna (Spikevax), Mrna-lnp, Jesse Protein, Pf 2020-08-12 00:00:00 Completed Yanely Seybold - External Covid-19 Vaccine (Moderna), Mrna-lnp, Jesse Protein, Pf, 100 Mcg/0.5ml,IM 2020-08-12 00:00:00 Completed Yanely Seybold Covid-19 Vaccine (Moderna), Mrna-lnp, Jesse Protein, Pf, 100 Mcg/0.5ml,IM 2020-08-12 00:00:00 Completed Yanely Seybold Covid-19 Vaccine (Moderna), Mrna-lnp, Jesse Protein, Pf, 100 Mcg/0.5ml,IM 2020-08-12 00:00:00 Completed Yanely Seybold Covid-19 Vaccine (Moderna), Mrna-lnp, Jesse Protein, Pf, 100 Mcg/0.5ml,IM 2020-08-12 00:00:00 Completed Yanely Seybold Covid-19 Vaccine (Moderna), Mrna-lnp, Jesse Protein, Pf, 100 Mcg/0.5ml,IM 2020-08-12 00:00:00 Completed Yanely Seybold Covid-19 Vaccine (Moderna), Mrna-lnp, Jesse Protein, Pf, 100 Mcg/0.5ml,IM 2020-08-12 00:00:00 Completed Yanely Jarrett Covid-19 Vaccine Moderna (Spikevax), Mrna-lnp, Jesse Protein, Pf 2020-08-12 00:00:00 Completed Yanely Binghamold Covid-19 Vaccine Moderna (Spikevax), Mrna-lnp, Jesse Protein, Pf 2020-08-12 00:00:00 Completed Yanely Binghamold Covid-19 Vaccine Moderna (Spikevax), Mrna-lnp, Jesse Protein, Pf 2020-08-12 00:00:00 Completed Yanely Binghamold Covid-19 Vaccine Moderna (Spikevax), Mrna-lnp, Jesse Protein, Pf 2020-08-12 00:00:00 Completed Yanely Binghamold Covid-19 Vaccine Moderna (Spikevax), Mrna-lnp, Jesse Protein, Pf 2020-08-12 00:00:00 Completed Yanely Binghamold Covid-19 Vaccine (Moderna), Mrna-lnp, Jesse Protein, Pf, 100 Mcg/0.5ml,IM 2020-08-12 00:00:00 Completed Yanely Binghamold Covid-19 Vaccine Moderna (Spikevax), Mrna-lnp, Jesse Protein, Pf 2020-08-12 00:00:00 Completed Yanely Jarrett - External Covid-19 Vaccine Moderna (Spikevax), Mrna-lnp, Jesse Protein, Pf 2020-08-12 00:00:00 Completed Yanely Binghamold - External Covid-19 Vaccine Moderna (Spikevax), Mrna-lnp, Jesse Protein, Pf 2020-08-12 00:00:00 Completed Yanely Seybold - External Covid-19 Vaccine Moderna (Spikevax), Mrna-lnp, Jesse Protein, Pf 2020-08-12 00:00:00 Completed Yanely Seybold - External Covid-19 Vaccine Moderna (Spikevax), Mrna-lnp, Jesse Protein, Pf 2020-08-12 00:00:00 Completed Yanely Seybold - External Covid-19 Vaccine (Moderna), Mrna-lnp, Jesse Protein, Pf, 100 Mcg/0.5ml,IM 2020-08-12 00:00:00 Completed Yanely Seybold Covid-19 Vaccine Moderna (Spikevax), Mrna-lnp, Jesse Protein, Pf 2020-08-12 00:00:00 Completed Yanely Seybold - External Covid-19 Vaccine Moderna (Spikevax), Mrna-lnp, Jesse Protein, Pf 2020-08-12 00:00:00 Completed Yanely Seybold - External Covid-19 Vaccine Moderna (Spikevax), Mrna-lnp, Jesse Protein, Pf 2020-08-12 00:00:00 Completed Yanely Seybold - External Influenza Virus Vaccine, Unspecified Formulation 2020-04-05 00:00:00 Completed Yanely Seybold - External Influenza Virus Vaccine, Unspecified Formulation 2020-04-05 00:00:00 Completed Yanely Seybold Influenza Virus Vaccine, Unspecified Formulation 2020-04-05 00:00:00 Completed Yanely Seybold Influenza Virus Vaccine, Unspecified Formulation 2020-04-05 00:00:00 Completed Yanely Seybold Influenza Virus Vaccine, Unspecified Formulation 2020-04-05 00:00:00 Completed Yanely Seybold Influenza Virus Vaccine, Unspecified Formulation 2020-04-05 00:00:00 Completed Yanely Seybold Influenza Virus Vaccine, Unspecified Formulation 2020-04-05 00:00:00 Completed Yanely Seybold Influenza Virus Vaccine, Unspecified Formulation 2020-04-05 00:00:00 Completed Yanely Seybold Influenza Virus Vaccine, Unspecified Formulation 2020-04-05 00:00:00 Completed Yanely Seybold Influenza Virus Vaccine, Unspecified Formulation 2020-04-05 00:00:00 Completed Yanely Seybold Influenza Virus Vaccine, Unspecified Formulation 2020-04-05 00:00:00 Completed Yanely Seybold Influenza Virus Vaccine, Unspecified Formulation 2020-04-05 00:00:00 Completed Yanely Seybold Influenza Virus Vaccine, Unspecified Formulation 2020-04-05 00:00:00 Completed Yanely Seybold Influenza Virus Vaccine, Unspecified Formulation 2020-04-05 00:00:00 Completed Yanely Seybold - External Influenza Virus Vaccine, Unspecified Formulation 2020-04-05 00:00:00 Completed Yanely Seybold - External Influenza Virus Vaccine, Unspecified Formulation 2020-04-05 00:00:00 Completed Yanely Seybold - External Influenza Virus Vaccine, Unspecified Formulation 2020-04-05 00:00:00 Completed Yanely Seybold - External Influenza Virus Vaccine, Unspecified Formulation 2020-04-05 00:00:00 Completed Yanely Seybold - External Influenza Virus Vaccine, Unspecified Formulation 2020-04-05 00:00:00 Completed Yanely Seybold Influenza Virus Vaccine, Unspecified Formulation 2020-04-05 00:00:00 Completed Yanely Seybold - External Influenza Virus Vaccine, Unspecified Formulation 2020-04-05 00:00:00 Completed Yanely Seybold - External Influenza Virus Vaccine, Unspecified Formulation 2020-04-05 00:00:00 Completed Yanely Seybold - External Influenza Virus Vaccine 2020-04-05 00:00:00 Completed [facility] Influenza Virus Vaccine 2020-04-05 00:00:00 Completed [facility] Influenza Virus Vaccine 2020-04-05 00:00:00 Completed [facility] Influenza Virus Vaccine 2020-04-05 00:00:00 Completed [facility] Influenza Virus Vaccine 2020-04-05 00:00:00 Completed [facility] Influenza Virus Vaccine 2020-04-05 00:00:00 Completed [facility] Influenza Virus Vaccine 2020-04-05 00:00:00 Completed [facility] Influenza Virus Vaccine 2020-04-05 00:00:00 Completed [facility] Influenza Virus Vaccine 2020-04-05 00:00:00 Completed [facility] Influenza Virus Vaccine 2020-04-05 00:00:00 Completed [facility] Influenza Virus Vaccine Quad .5 mL IM 6+ MO 2019-04-10 00:00:00 Completed [facility] Pneumococcal Polysaccharide, PPSV23 (PNEUMOVAX) 2019-04-10 00:00:00 Completed [facility] Influenza Virus Vaccine Quad .5 mL IM 6+ MO 2019-04-10 00:00:00 Completed [facility] Pneumococcal Polysaccharide, PPSV23 (PNEUMOVAX) 2019-04-10 00:00:00 Completed [facility] Influenza Virus Vaccine Quad .5 mL IM 6+ MO 2019-04-10 00:00:00 Completed [facility] Pneumococcal Polysaccharide, PPSV23 (PNEUMOVAX) 2019-04-10 00:00:00 Completed [facility] Influenza Virus Vaccine Quad .5 mL IM 6+ MO 2019-04-10 00:00:00 Completed [facility] Pneumococcal Polysaccharide, PPSV23 (PNEUMOVAX) 2019-04-10 00:00:00 Completed [facility] Influenza Virus Vaccine Quad .5 mL IM 6+ MO 2019-04-10 00:00:00 Completed [facility] Pneumococcal Polysaccharide, PPSV23 (PNEUMOVAX) 2019-04-10 00:00:00 Completed [facility] Influenza Virus Vaccine Quad .5 mL IM 6+ MO 2019-04-10 00:00:00 Completed [facility] Pneumococcal Polysaccharide, PPSV23 (PNEUMOVAX) 2019-04-10 00:00:00 Completed [facility] Influenza Virus Vaccine Quad .5 mL IM 6+ MO 2019-04-10 00:00:00 Completed [facility] Pneumococcal Polysaccharide, PPSV23 (PNEUMOVAX) 2019-04-10 00:00:00 Completed [facility] Influenza Virus Vaccine Quad .5 mL IM 6+ MO 2019-04-10 00:00:00 Completed [facility] Pneumococcal Polysaccharide, PPSV23 (PNEUMOVAX) 2019-04-10 00:00:00 Completed [facility] Influenza Virus Vaccine Quad .5 mL IM 6+ MO 2019-04-10 00:00:00 Completed [facility] Influenza Virus Vaccine, No Preserv, age 6 months and up 2019-04-10 00:00:00 Completed Yanely Seybold - External Pneumococcal Vaccine, Polysaccharide 2019-04-10 00:00:00 Completed Yanely Seybold - External Influenza Virus Vaccine, No Preserv, age 6 months and up 2019-04-10 00:00:00 Completed Yanely Seybold Pneumococcal Vaccine, Polysaccharide 2019-04-10 00:00:00 Completed Yanely Seybold Influenza Virus Vaccine, No Preserv, age 6 months and up 2019-04-10 00:00:00 Completed Yanely Seybold Pneumococcal Vaccine, Polysaccharide 2019-04-10 00:00:00 Completed Yanely Seybold Pneumococcal Polysaccharide, PPSV23 (PNEUMOVAX) 2019-04-10 00:00:00 Completed [facility] Influenza Virus Vaccine, No Preserv, age 6 months and up 2019-04-10 00:00:00 Completed Yanely Seybold Pneumococcal Vaccine, Polysaccharide 2019-04-10 00:00:00 Completed Yanely Seybold Influenza Virus Vaccine, No Preserv, age 6 months and up 2019-04-10 00:00:00 Completed Yanely Seybold Pneumococcal Vaccine, Polysaccharide 2019-04-10 00:00:00 Completed Yanely Seybold Influenza Virus Vaccine, No Preserv, age 6 months and up 2019-04-10 00:00:00 Completed Yanely Seybold Pneumococcal Vaccine, Polysaccharide 2019-04-10 00:00:00 Completed Yanely Seybold Influenza Virus Vaccine, No Preserv, age 6 months and up 2019-04-10 00:00:00 Completed Yanely Seybold Pneumococcal Vaccine, Polysaccharide 2019-04-10 00:00:00 Completed Yanely Seybold Influenza Virus Vaccine, No Preserv, age 6 months and up 2019-04-10 00:00:00 Completed Yanely Seybold Pneumococcal Vaccine, Polysaccharide 2019-04-10 00:00:00 Completed Yanely Seybold Influenza Virus Vaccine Quad .5 mL IM 6+ MO 2019-04-10 00:00:00 Completed [facility] Influenza Virus Vaccine, No Preserv, age 6 months and up 2019-04-10 00:00:00 Completed Aynely Seybold Pneumococcal Vaccine, Polysaccharide 2019-04-10 00:00:00 Completed Yanely Seybold Influenza Virus Vaccine, No Preserv, age 6 months and up 2019-04-10 00:00:00 Completed Yanely Seybold Pneumococcal Vaccine, Polysaccharide 2019-04-10 00:00:00 Completed Yanely Seybold Influenza Virus Vaccine, No Preserv, age 6 months and up 2019-04-10 00:00:00 Completed Yanely Seybold Pneumococcal Vaccine, Polysaccharide 2019-04-10 00:00:00 Completed Yanely Seybold Influenza Virus Vaccine, No Preserv, age 6 months and up 2019-04-10 00:00:00 Completed Yanely Seybold Pneumococcal Vaccine, Polysaccharide 2019-04-10 00:00:00 Completed Yanely Seybold Influenza Virus Vaccine, No Preserv, age 6 months and up 2019-04-10 00:00:00 Completed Yanely Seybold Influenza Virus Vaccine, No Preserv, age 6 months and up 2019-04-10 00:00:00 Completed Yanely Seybold - External Pneumococcal Vaccine, Polysaccharide 2019-04-10 00:00:00 Completed Yanely Seybold - External Pneumococcal Vaccine, Polysaccharide 2019-04-10 00:00:00 Completed Yanely Seybold Influenza Virus Vaccine, No Preserv, age 6 months and up 2019-04-10 00:00:00 Completed Yanely Seybold - External Pneumococcal Vaccine, Polysaccharide 2019-04-10 00:00:00 Completed Yanely Seybold - External Influenza Virus Vaccine, No Preserv, age 6 months and up 2019-04-10 00:00:00 Completed Yanely Seybold - External Pneumococcal Vaccine, Polysaccharide 2019-04-10 00:00:00 Completed Yanely Seybold - External Influenza Virus Vaccine, No Preserv, age 6 months and up 2019-04-10 00:00:00 Completed Yanely Seybold - External Pneumococcal Vaccine, Polysaccharide 2019-04-10 00:00:00 Completed Yanely Seybold - External Influenza Virus Vaccine, No Preserv, age 6 months and up 2019-04-10 00:00:00 Completed Yanely Seybold - External Pneumococcal Vaccine, Polysaccharide 2019-04-10 00:00:00 Completed Yanely Seybold - External Influenza Virus Vaccine, No Preserv, age 6 months and up 2019-04-10 00:00:00 Completed Yanely Seybold Influenza Virus Vaccine, No Preserv, age 6 months and up 2019-04-10 00:00:00 Completed Yanely Seybold - External Pneumococcal Vaccine, Polysaccharide 2019-04-10 00:00:00 Completed Yanely Seybold Pneumococcal Vaccine, Polysaccharide 2019-04-10 00:00:00 Completed Yanely Seybold - External Influenza Virus Vaccine, No Preserv, age 6 months and up 2019-04-10 00:00:00 Completed Yanely Seybold - External Pneumococcal Vaccine, Polysaccharide 2019-04-10 00:00:00 Completed Yanely Seybold - External Influenza Virus Vaccine, No Preserv, age 6 months and up 2019-04-10 00:00:00 Completed Yanely Seybold - External Pneumococcal Vaccine, Polysaccharide 2019-04-10 00:00:00 Completed Yanely Seybold - External Pneumococcal Polysaccharide, PPSV23 (PNEUMOVAX) 2019-04-10 00:00:00 Completed [facility] Covid-19 Vaccine Moderna (Spikevax), Mrna-lnp, Jesse Protein, Pf Unknown Completed Yanely Seybold - External Influenza Virus Vaccine, No Preserv, age 6 months and up Unknown Completed Yanely S eybold - External Influenza Virus Vaccine, Unspecified Formulation Unknown Completed Yanely Seybold - External Pneumococcal Vaccine, Polysaccharide Unknown Completed Yanely Seybol d - External Influenza Virus Vaccine, age 6 months and up Unknown Completed Yanely Seybold - External COVID-19 VACCINE PFIZER 12+ ([place] cap) Unknown Completed Yanely Seybold - External Pneumococcal Conjugate 15 (Vaxneuvance) Unknown Completed Yanely Seybold - External Covid-19 Vaccine Moderna (Spikevax), Mrna-lnp, Jesse Protein, Pf Unknown Completed Yanely Seybold - External Influenza Virus Vaccine, No Preserv, age 6 months and up Unknown Completed Yanely S eybold - External Influenza Virus Vaccine, Unspecified Formulation Unknown Completed Yanely Seybold - External Pneumococcal [facility], Polysaccharide [facility], age 6 months and up Unknown Completed Yanely Seybold - External COVID-19 VACCINE PFIZER 12+ (Cowan cap) Unknown Completed Yanely Seybold - External Pneumococcal Conjugate 15 (Vaxneuvance) [facility] Vaccine Moderna (Spikevax), Mrna-lnp, Jesse Protein, Pf Unknown Completed Yanely Seybold - External Influenza Virus Vaccine, No Preserv, age 6 months and up Unknown Completed Yanely S eybold - External Influenza Virus Vaccine, Unspecified Formulation Unknown Completed Yanely Seybold - External Pneumococcal Vaccine, Polysaccharide Unknown Completed Yanely Seybol d - External Influenza Virus Vaccine, age 6 months and up Unknown Completed Aynely Seybold - External COVID-19 VACCINE PFIZER 12+ (Cowan cap) Unknown Completed Yanely Seybold - External Pneumococcal Conjugate 15 (Vaxneuvance) Unknown Completed Yanely Seybold - External Covid-19 Vaccine Moderna (Spikevax), Mrna-lnp, Jesse Protein, Pf Unknown Completed Yanely Seybold - External Influenza Virus Vaccine, No Preserv, age 6 months and up Unknown Completed Yanely S eybold - External Influenza Virus Vaccine, Unspecified Formulation Unknown Completed Yanely Seybold - External Pneumococcal Vaccine, Polysaccharide Unknown Completed Yanely Seybol d - External Influenza Virus Vaccine, age 6 months and up Unknown Completed Yanely Seybold - External COVID-19 VACCINE PFIZER 12+ (Cowan cap) Unknown Completed Yanely Seybold - External Pneumococcal Conjugate 15 (Vaxneuvance) Unknown Completed Yanely Seybold - External Covid-19 Vaccine Moderna (Spikevax), Mrna-lnp, Jesse Protein, Pf Unknown Completed Yanely Seybold - External Influenza Virus Vaccine, No Preserv, age 6 months and up Unknown Completed Yanely S eybold - External Influenza Virus Vaccine, Unspecified Formulation Unknown Completed Yanely Seybold - External Pneumococcal Vaccine, Polysaccharide Unknown Completed Yanely Seybol d - External Influenza Virus Vaccine, age 6 months and up Unknown Completed Yanely Seybold - External COVID-19 VACCINE PFIZER 12+ (Cowan cap) Unknown Completed Yanely Seybold - External Pneumococcal Conjugate 15 (Vaxneuvance) Unknown Completed Yanely Seybold - External Covid-19 Vaccine Moderna (Spikevax), Mrna-lnp, Jesse Protein, Pf Unknown Completed Yanely Seybold - External Influenza Virus Vaccine, No Preserv, age 6 months and up Unknown Completed Yanely S eybold - External Influenza Virus Vaccine, Unspecified Formulation Unknown Completed Yanely Seybold - External Pneumococcal Vaccine, Polysaccharide Unknown Completed Yanely Seybol d - External Influenza Virus Vaccine, age 6 months and up Unknown Completed Yanely Seybold - External COVID-19 VACCINE PFIZER 12+ (Cowan cap) Unknown Completed Yanely Seybold - External Pneumococcal Conjugate 15 (Vaxneuvance) Unknown Completed Yanely Seybold - External Influenza, Injectable, Mdck, Quadrivalent With Preservative Unknown Completed Yanely Seybold - External Covid-19 Vaccine Moderna (Spikevax), Mrna-lnp, Jesse Protein, Pf Unknown Completed Yanely Seybold - External Influenza Virus Vaccine, No Preserv, age 6 months and up Unknown Completed Yanely S eybold - External Influenza Virus Vaccine, Unspecified Formulation Unknown Completed Yanely Seybold - External Pneumococcal Vaccine, Polysaccharide Unknown Completed Yanely Seybol d - External Influenza Virus Vaccine, age 6 months and up Unknown Completed Yanely Seybold - External COVID-19 VACCINE PFIZER 12+ (Cowan cap) Unknown Completed Yanely Seybold - External Pneumococcal Conjugate 15 (Vaxneuvance) Unknown Completed Yanely Seybold - External Influenza, Injectable, Mdck, Quadrivalent With Preservative Unknown Completed Yanely Seybold - External Covid-19 Vaccine Moderna (Spikevax), Mrna-lnp, Jesse Protein, Pf Unknown Completed Yanely Seybold - External Influenza Virus Vaccine, No Preserv, age 6 months and up Unknown Completed Yanely S eybold - External Influenza Virus Vaccine, Unspecified Formulation Unknown Completed Yanely Seybold - External Pneumococcal Vaccine, Polysaccharide Unknown Completed Yanely Seybol d - External Influenza Virus Vaccine, age 6 months and up Unknown Completed Yanely Seybold - External COVID-19 VACCINE PFIZER 12+ (Cowan cap) Unknown Completed Yanely Seybold - External Pneumococcal Conjugate 15 (Vaxneuvance) Unknown Completed Yanely Seybold - External Influenza, Injectable, Mdck, Quadrivalent With Preservative Unknown Completed Yanely Seybold - External Covid-19 Vaccine Moderna (Spikevax), Mrna-lnp, Jesse Protein, Pf Unknown Completed Yanely Seybold - External Influenza Virus Vaccine, No Preserv, age 6 months and up Unknown Completed Yanely S eybold - External Influenza Virus Vaccine, Unspecified Formulation Unknown Completed Yanely Seybold - External Pneumococcal Vaccine, Polysaccharide Unknown Completed Yanely Seybol d - External Influenza Virus Vaccine, age 6 months and up Unknown Completed Yanely Seybold - External COVID-19 VACCINE PFIZER 12+ (Cowan cap) Unknown Completed Yanely Seybold - External Pneumococcal Conjugate 15 (Vaxneuvance) Unknown Completed Yanely Seybold - External Influenza, Injectable, Mdck, Quadrivalent With Preservative Unknown Completed Yanely Seybold - External Covid-19 Vaccine Moderna (Spikevax), Mrna-lnp, Jesse Protein, Pf Unknown Completed Yanely Seybold - External Influenza Virus Vaccine, No Preserv, age 6 months and up Unknown Completed Yanely S eybold - External Influenza Virus Vaccine, Unspecified Formulation Unknown Completed Yanely Seybold - External Pneumococcal Vaccine, Polysaccharide Unknown Completed Yanely Seybol d - External Influenza Virus Vaccine, age 6 months and up Unknown Completed Yanely Seybold - External COVID-19 VACCINE PFIZER 12+ (Cowan cap) Unknown Completed Yanely Seybold - External Pneumococcal Conjugate 15 (Vaxneuvance) Unknown Completed Yanely Seybold - External Influenza, Injectable, Mdck, Quadrivalent With Preservative Unknown Completed Yanely Luiza - External Covid-19 Vaccine Moderna (Spikevax), Mrna-lnp, Jesse Protein, Pf Unknown Completed Yanely alexemmanuel - External Influenza Virus Vaccine, No Preserv, age 6 months and up Unknown Completed Yanely Ludwig matiasbonereida - External Influenza Virus Vaccine, Unspecified Formulation Unknown Completed Yanely alexemmanuel - External Pneumococcal Vaccine, Polysaccharide Unknown Completed Yanely Lopes d - External Influenza Virus Vaccine, age 6 months and up Unknown Completed Yanely Luiza - External COVID-19 VACCINE PFIZER 12+ (Cowan cap) Unknown Completed Yanely Luiza - External Pneumococcal Conjugate 15 (Vaxneuvance) Unknown Completed Yanely Binghamemmanuel - External Influenza, Injectable, Mdck, Quadrivalent With Preservative Unknown Completed Yanely alexemmanuel - External AFLURIA TRIVALENT MDV Unknown Completed Yanely alexemmanuel - External COVID-19 Vaccine(Pfizer)(12yr s+) Unknown Completed Yanely Jarrett - External Vital Signs Vital Name Observation Time Observation Value Comments S ource Systolic blood pressure 2024-07-04 16:09:00 146 mm[Hg] Yanely alexemmanuel - External Diastolic blood pressure 2024-07-04 16:09:00 80 mm[Hg] Yanely Jarrett - External Heart rate 2024-07-04 16:01:00 86 /min Yanely Jarrett - External Body temperature 2024-07-04 16:01:00 36.78 Peggy Yanely alexemmanuel - External Respiratory rate 2024-07-04 16:01:00 20 /min Yanely Jarrett - External Body height 2024-07-04 16:01:00 188 cm Yanely Jarrett - External Body weight 2024-07-04 16:01:00 164.202 kg Yanely stew - External BMI 2024-07-04 16:01:00 46.48 kg/m2 Yanely Jarrett - External Oxygen saturation in Arterial blood by Pulse oximetry 2024-07-04 16:01:00 100 /min Yanely Jarrett - External Systolic blood pressure 2023-08-29 14:46:00 140 mm[Hg] Yanely Binghamemmanuel - External Diastolic blood pressure 2023-08-29 14:46:00 72 mm[Hg] Yanely Seybold - External Body temperature 2023-08-29 14:46:00 36.61 Peggy Yanely Seybold - External Respiratory rate 2023-08-29 14:46:00 20 /min Yanely Seybold - External Body height 2023-08-29 14:46:00 188 cm Yanely Seybold - External Body weight 2023-08-29 14:46:00 149.687 kg Yanely Seybold - External BMI 2023-08-29 14:46:00 42.37 kg/m2 Yanely Seybold - External Oxygen saturation in Arterial blood by Pulse oximetry 2023-08-29 14:46:00 97 /min Yanely Seybold - External Systolic blood pressure 2023-08-07 14:42:00 159 mm[Hg] Yanely Seybold - External Diastolic blood pressure 2023-08-07 14:42:00 75 mm[Hg] Yanely Seybold - External Heart rate 2023-08-07 14:42:00 86 /min Yanely Seybold - External Respiratory rate 2023-08-07 14:42:00 16 /min Yanely Seybold - External Body weight 2023-08-07 14:42:00 154.677 kg Yanely Seybold - External BMI 2023-08-07 14:42:00 43.78 kg/m2 Yanely Seybold - External Systolic blood pressure 2023-06-15 17:42:00 142 mm[Hg] Yanely Seybold - External Diastolic blood pressure 2023-06-15 17:42:00 76 mm[Hg] Yanely Seybold - External Heart rate 2023-06-15 17:42:00 95 /min Yanely Seybold - External Body temperature 2023-06-15 17:42:00 36.94 Peggy Yanely Seybold - External Respiratory rate 2023-06-15 17:42:00 18 /min Yanely Seybold - External Body height 2023-06-15 17:42:00 188 cm Yanely Ahmadiybold - External Body weight 2023-06-15 17:42:00 150 kg Yanely Seybold - External BMI 2023-06-15 17:42:00 42.46 kg/m2 Yanely Seybold - External Oxygen saturation in Arterial blood by Pulse oximetry 2023-06-15 17:42:00 97 /min Yanely Seybold - External Systolic blood pressure 2023-05-30 14:04:00 160 mm[Hg] Yanely Seybold - External Diastolic blood pressure 2023-05-30 14:04:00 80 mm[Hg] Yanely Seybold - External Heart rate 2023-05-30 14:04:00 66 /min Yanely Seybold - External Body temperature 2023-05-30 14:04:00 36.56 Peggy Yanely Seybold - External Respiratory rate 2023-05-30 14:04:00 18 /min Yanely Seybold - External Body height 2023-05-30 14:04:00 188 cm Yanely Seybold - External Body weight 2023-05-30 14:04:00 156.718 kg Yanely Seybold - External BMI 2023-05-30 14:04:00 44.36 kg/m2 Yanely Seybold - External Oxygen saturation in Arterial blood by Pulse oximetry 2023-05-30 14:04:00 99 /min Yanely Seybold - External Body weight 2023-05-16 19:55:00 150.141 kg self-reported post dialysis weight Yanely Seybold - External BMI 2023-05-16 19:55:00 42.50 kg/m2 Yanely Seybold - External Systolic blood pressure 2023-05-15 14:32:00 155 mm[Hg] Yanely Seybold - External Diastolic blood pressure 2023-05-15 14:32:00 90 mm[Hg] Yanely Seybold - External Heart rate 2023-05-15 14:32:00 66 /min Yanely Seybold - External Body temperature 2023-05-15 14:32:00 36.78 Peggy Yanely Seybold - External Respiratory rate 2023-05-15 14:32:00 18 /min Yanely Seybold - External Body height 2023-05-15 14:32:00 188 cm Yanely Ahmadiybold - External Body weight 2023-05-15 14:32:00 155.13 kg Yanely Seybold - External BMI 2023-05-15 14:32:00 43.91 kg/m2 Yanely Seybold - External Oxygen saturation in Arterial blood by Pulse oximetry 2023-05-15 14:32:00 100 /min Yanely Seybold - External Systolic blood pressure 2023-05-01 17:04:00 163 mm[Hg] Yanely Seybold - External Diastolic blood pressure 2023-05-01 17:04:00 68 mm[Hg] Yanely Seybold - External Heart rate 2023-05-01 16:34:00 64 /min Yanely Seybold - External Body temperature 2023-05-01 16:34:00 37.06 Peggy Yanely Seybold - External Respiratory rate 2023-05-01 16:34:00 22 /min Yanely Seybold - External Body height 2023-05-01 16:34:00 188 cm Yanely Seybold - External Body weight 2023-05-01 16:34:00 156.945 kg Yanely Seybold - External BMI 2023-05-01 16:34:00 44.42 kg/m2 Yanely Seybold - External Oxygen saturation in Arterial blood by Pulse oximetry 2023-05-01 16:34:00 97 /min Yanely Seybold - External Body weight 2023-04-18 20:08:00 150.3 kg reported weight after dialysis Yanely Seybold - External BMI 2023-04-18 20:08:00 42.54 kg/m2 Yanely Seybold - External Systolic blood pressure 2023-01-23 14:07:00 155 mm[Hg] Yanely Seybold - External Diastolic blood pressure 2023-01-23 14:07:00 67 mm[Hg] Yanely Seybold - External Heart rate 2023-01-23 14:07:00 65 /min Yanely Seybold - External Body temperature 2023-01-23 14:07:00 36.61 Peggy Yanely Seybold - External Respiratory rate 2023-01-23 14:07:00 15 /min Yanely Seybold - External Body height 2023-01-23 14:07:00 188 cm Yanely Seybold - External Body weight 2023-01-23 14:07:00 165.563 kg Yanely Seybold - External BMI 2023-01-23 14:07:00 46.86 kg/m2 Yanely Seybold - External Oxygen saturation in Arterial blood by Pulse oximetry 2023-01-23 14:07:00 98 /min Yanely Seybold - External Systolic blood pressure 2022-12-16 13:46:00 147 mm[Hg] Yanely Seybold - External Diastolic blood pressure 2022-12-16 13:46:00 83 mm[Hg] Yanely Seybold - External Body temperature 2022-12-16 13:46:00 36.44 Peggy Yanely Seybold - External Respiratory rate 2022-12-16 13:46:00 14 /min Yanely Seybold - External Body height 2022-12-16 13:46:00 188 cm Yanely Seybold - External Body weight 2022-12-16 13:46:00 165.563 kg Yanely Seybold - External BMI 2022-12-16 13:46:00 46.86 kg/m2 Yanely Seybold - External Oxygen saturation in Arterial blood by Pulse oximetry 2022-12-16 13:46:00 99 /min Yanely Seybold - External Systolic blood pressure 2022-07-21 19:57:00 152 mm[Hg] Yanely Seybold - External Diastolic blood pressure 2022-07-21 19:57:00 80 mm[Hg] Yanely Seybold - External Heart rate 2022-07-21 19:57:00 77 /min Yanely Seybold - External Body temperature 2022-07-21 19:57:00 36.78 Peggy Yanely Seybold - External Respiratory rate 2022-07-21 19:57:00 15 /min Yanely Seybold - External Body height 2022-07-21 19:57:00 188 cm Yanely Seybold - External Body weight 2022-07-21 19:57:00 166.017 kg Yanely Seybold - External BMI 2022-07-21 19:57:00 46.99 kg/m2 Yanely Seybold - External Systolic blood pressure 2022-05-16 16:46:00 194 mm[Hg] Yanely Seybold - External Diastolic blood pressure 2022-05-16 16:46:00 93 mm[Hg] Yanely Seybold - External Heart rate 2022-05-16 16:46:00 64 /min Yanely Seybold - External Body temperature 2022-05-16 16:46:00 36.67 Peggy Yanely Binghamold - External Respiratory rate 2022-05-16 16:46:00 18 /min Yanely Jarrett - External Body height 2022-05-16 16:46:00 188 cm Yanely Jarrett - External Body weight 2022-05-16 16:46:00 165.109 kg Yanely Jarrett - External BMI 2022-05-16 16:46:00 46.73 kg/m2 Yanely Jarrett - External Systolic blood pressure 2021-08-25 12:58:00 148 mm[Hg] Yanely Ahmadiybold Diastolic blood pressure 2021-08-25 12:58:00 78 mm[Hg] Yanely Ahmadiybold Heart rate 2021-08-25 12:58:00 78 /min Yanely Jarrett Body temperature 2021-08-25 12:58:00 35.67 Peggy Yanely Binghamold Respiratory rate 2021-08-25 12:58:00 16 /min Yanely Jarrett Body height 2021-08-25 12:58:00 188 cm Yanely Jarrett Body weight 2021-08-25 12:58:00 160.12 kg Yanely Jarrett BMI 2021-08-25 12:58:00 45.32 kg/m2 Yanely Jarrett Oxygen saturation in Arterial blood by Pulse oximetry 2021-08-25 12:58:00 100 /min Yanely Jarrett Heart rate 2021-08-09 16:54:00 78 /min Yanely Jarrett Body temperature 2021-08-09 16:54:00 36.61 Peggy Yanely Binghamold Respiratory rate 2021-08-09 16:54:00 16 /min Yanely Jarrett Body height 2021-08-09 16:54:00 188 cm Yanely Jarrett Body weight 2021-08-09 16:54:00 156.491 kg Yanely Jarrett BMI 2021-08-09 16:54:00 44.30 kg/m2 Yanely Jarrett Oxygen saturation in Arterial blood by Pulse oximetry 2021-08-09 16:54:00 98 /min Yanely Jarrett Systolic blood pressure 2021-08-09 16:54:00 162 mm[Hg] Yanely Jarrett Diastolic blood pressure 2021-08-09 16:54:00 90 mm[Hg] Yanely Jarrett Systolic blood pressure 2021-03-15 19:49:00 180 mm[Hg] Yanely Ahmadiybemmanuel Diastolic blood pressure 2021-03-15 19:49:00 106 mm[Hg] Yanely Jarrett Heart rate 2021-03-15 19:49:00 76 /min Yanely Jarrett Body temperature 2021-03-15 19:49:00 36.44 Peggy Yanely Jarrett Respiratory rate 2021-03-15 19:49:00 16 /min Yanely Jarrett Body height 2021-03-15 19:49:00 188 cm Yanely Jarrett Body weight 2021-03-15 19:49:00 156.491 kg Yanely Jarrett BMI 2021-03-15 19:49:00 44.30 kg/m2 Yanely Jarrett Systolic blood pressure 2021-02-17 19:51:00 163 mm[Hg] Yanely Ahmadiybemmanuel Diastolic blood pressure 2021-02-17 19:51:00 92 mm[Hg] Yanely Jarrett Heart rate 2021-02-17 19:51:00 72 /min Yanely Jarrett Body temperature 2021-02-17 19:51:00 36.78 Peggy Yanely Jarrett Respiratory rate 2021-02-17 19:51:00 16 /min Yanely Jarrett Body height 2021-02-17 19:51:00 185.4 cm Yanely Jarrett Body weight 2021-02-17 19:51:00 154.223 kg Yanely Jarrett BMI 2021-02-17 19:51:00 44.86 kg/m2 Yanely Jarrett Systolic blood pressure 2020-06-19 17:39:00 156 mm[Hg] [facility] Diastolic blood pressure 2020-06-19 17:39:00 92 mm[Hg] [facility] Heart rate 2020-06-19 17:31:00 86 /min [facility] Respiratory rate 2020-06-19 17:31:00 19 /min [facility] Body height 2020-06-19 17:31:00 185.4 cm [facility] Body weight 2020-06-19 17:31:00 150.685 kg [facility] BMI 2020-06-19 17:31:00 43.83 kg/m2 [facility] Oxygen saturation in Arterial blood by Pulse oximetry 2020-06-19 17:31:00 95 /min [facility] Procedures Procedure Date / Time Performed Performing Clinician Source AUTHORIZATION FOR RELEASE OF PHI 2022-06-02 06:01:00 Doctor Unassigned, [place] [facility] REAGENT STRIP/BLOOD GLUCOSE 2022-05-16 00:00:00 Outside, Reported Yanely Jarrett - External AUTHORIZATION FOR RELEASE OF PHI 2022-05-03 06:01:00 Doctor Unassigned, [place] [facility] AUTHORIZATION FOR RELEASE OF PHI 2022-04-27 06:01:00 Doctor Unassigned, [place] [facility] REAGENT STRIP/BLOOD GLUCOSE 2021-08-09 16:57:00 Krystyna Johnson REAGENT STRIP/BLOOD GLUCOSE 2021-03-15 20:00:00 Krystyna Johnson MEDICAL RELEASE/CLEARANCE FORMS 2021-02-22 05:01:00 Doctor Unassigned, [place] [facility] VA ELECTROCARDIOGRAM, COMPLETE 2020-06-19 17:36:18 Domenica Arias [facility] Encounters Start Date/Time End Date/Time Encounter Type Admission Type Attending [facility] Care Department Encounter ID Source 2024-07-17 13:30:00 2024-07-17 13:30:00 Outpatient ANA LAURA MARTE [id number] Yanely Jarrett 2024-07-11 00:00:00 2024-07-11 00:00:00 Outpatient GAVIOTA COSTA [id number] Yanely Jarrett 2024-07-09 00:00:00 2024-07-09 00:00:00 Outpatient DAX PRADO [id number] Yanely Jarrett 2024-07-08 00:00:00 2024-07-08 00:00:00 Outpatient GAVIOTA COSTA [id number] Yanely Jarrett 2024-07-05 14:30:00 2024-07-05 14:30:00 Outpatient GAVIOTA COSTA YANELY [id number] Yanely Seybold 2024-07-04 11:00:00 2024-07-04 11:00:00 Outpatient ARTURO BRUCE YNAELY [id number] Yanely Seybold 2024-07-04 10:00:00 2024-07-04 10:00:00 Outpatient GAVIOTA COSTA YANELY BRUCE [id number] Yanely Seybemmanuel 2024-07-04 00:00:00 2024-07-04 00:00:00 Outpatient YANELY BRUCE [id number] Yanely Seybold 2024-07-03 08:00:00 2024-07-03 08:00:00 Outpatient GAVIOTA COSTA YANELY BRUCE [id number] [facility] 2024-06-26 10:30:00 2024-06-26 10:30:00 Outpatient PREZAS, DAX YANELY BRUCE [id number] [facility] 2024-05-31 00:00:00 2024-05-31 00:00:00 Outpatient JENNIFERLETHA GONZALEZ YANELY BRUCE [id number] [facility] 2024-05-24 14:30:00 2024-05-24 14:30:00 Outpatient WEAVERMARTÍN OatesKENJI YANELY BRUCE [id number] [facility] 2024-05-21 00:00:00 2024-05-21 00:00:00 Outpatient PREZAS, DAX BRUCE [id number] Yanely Seybold 2024-05-14 00:00:00 2024-05-14 00:00:00 Outpatient PREZAS, DAX BRUCE [id number] Yanely Seybold 2024-04-26 00:00:00 2024-04-26 00:00:00 Outpatient YANELY BRUCE [id number] Yanely Seybold 2024-04-19 00:00:00 2024-04-19 00:00:00 Outpatient PREZAS, DAX BRUCE [id number] Yanely Seybold 2024-03-25 00:00:00 2024-03-25 00:00:00 Outpatient YANELY BRUCE [id number] Yanely Seybold 2024-02-27 00:00:00 2024-02-27 00:00:00 Outpatient PREZAS, DAX YANELY BRUCE [id number] Yanely Seybold 2024-02-27 00:00:00 2024-02-27 00:00:00 Outpatient ISABELLCARLOS James YANELY BRUCE [id number] Yanely Seybold 2024-02-27 00:00:00 2024-02-27 00:00:00 Outpatient JENNIFERLETHA GONZALEZ YANELY BRUCE [id number] Yanely Seybold 2024-02-18 00:00:00 2024-02-18 00:00:00 Outpatient ISABELLCARLOS YANELY BRUCE [id number] Yanely Seybold 2024-02-11 00:00:00 2024-02-11 00:00:00 Outpatient PREZAS, DAX YANELY BRUCE [id number] Yanely Seybold 2024-01-11 00:00:00 2024-01-11 00:00:00 Outpatient PREZAS, DAX YANELY BRUCE [id number] Yanely Seybold 2024-01-11 00:00:00 2024-01-11 00:00:00 Outpatient ELIZABETH KRYSTYNA BRUCE [id number] Yanely Seybold 2024-01-04 08:45:00 2024-01-04 08:45:00 Outpatient PREZAS, DAX YANELY BRUCE [id number] Yanely Seybold 2023-12-08 00:00:00 2023-12-08 00:00:00 Outpatient KRYSTYNA JOHNSON YANELY BRUCE [id number] Yanely Seybold 2023-11-29 08:30:00 2023-11-29 08:30:00 Outpatient PREZAS, DAX YANELY BRUCE [id number] Yanely Seybold 2023-11-27 00:00:00 2023-11-27 00:00:00 Outpatient CARLOS NOEL YANELY BRUCE [id number] Yanely Seybold 2023-11-27 00:00:00 2023-11-27 00:00:00 Outpatient PREZAS DAX BRUCE [id number] Yanely Seybold 2023-10-28 00:00:00 2023-10-28 00:00:00 Outpatient KRYSTYNA JOHNSON YANELY BRUCE [id number] Yanely Ahmadiybemmanuel 2023-09-14 00:00:00 2023-09-14 00:00:00 Outpatient YANELY BRUCE [id number] Yanely Seybemmanuel 2023-09-10 00:00:00 2023-09-10 00:00:00 Outpatient LETHA RODRIGUEZ [id number] Yanely Seybemmanuel 2023-08-31 00:00:00 2023-08-31 00:00:00 Outpatient PREZASDAX YANELY BRUCE [id number] Yanely Seybemmanuel 2023-08-29 10:20:00 2023-08-29 10:20:00 Outpatient HARJINDER YANELY BRUCE [id number] Yanely Seybemmanuel 2023-08-29 09:30:00 2023-08-29 09:30:00 Outpatient PREZASDAX YANELY BRUCE [id number] Yanely Seybemmanuel 2023-08-29 00:00:00 2023-08-29 00:00:00 Outpatient PREZASDAX YANELY BRUCE [id number] Yanely Seybemmanuel 2023-08-07 08:45:00 2023-08-07 08:45:00 Outpatient KRYSTYNA JOHNSON YANELY BRUCE [id number] Yanely Seybemmanuel 2023-06-27 16:45:00 2023-06-27 16:45:00 Outpatient PREZASDAX YANELY RBUCE [id number] Yanely [facility]bben[facility] 2023-06-26 00:00:00 2023-06-26 00:00:00 Outpatient MD YANELY BALLARD [id number] Yanely Seybold 2023-06-26 00:00:00 2023-06-26 00:00:00 Outpatient LETHA RODRIGUEZ [id number] Yanely Seybold 2023-06-15 11:45:00 2023-06-15 11:45:00 Outpatient PREZAS, DAX YANELY BRUCE [id number] Yanely Seybold 2023-06-15 00:00:00 2023-06-15 00:00:00 Outpatient YANELY YANELY [id number] Yanely Seybold 2023-06-15 00:00:00 2023-06-15 00:00:00 Outpatient DAX PRADO YANELY [id number] Yanely Seybold 2023-06-15 00:00:00 2023-06-15 00:00:00 Outpatient YANELY BRUCE [id number] Yanely Seybold 2023-06-14 00:00:00 2023-06-14 00:00:00 Outpatient LETHA RODRIGUEZ YANELY BRUCE [id number] Yanely Seybold 2023-06-14 00:00:00 2023-06-14 00:00:00 Outpatient KRYSTYNA JOHNSON YANELY BRUCE [id number] Yanely Seybold 2023-06-12 00:00:00 2023-06-12 00:00:00 Outpatient PREDAX HARRIS YANELY BRUCE [id number] Yanely Seybold 2023-06-12 00:00:00 2023-06-12 00:00:00 Outpatient YANELY BRUCE [id number] Yanely Seybold 2023-06-07 00:00:00 2023-06-07 00:00:00 Outpatient PREDAX HARRIS YANELY BRUCE [id number] Yanely Seybold 2023-05-30 08:15:00 2023-05-30 08:15:00 Outpatient PREDAX HARRIS YANELY BRUCE [id number] Yanely Seybold 2023-05-30 00:00:00 2023-05-30 00:00:00 Outpatient PREDAX HARRIS YANELY BRUCE [id number] Yanely Seybold 2023-05-16 14:00:00 2023-05-16 14:00:00 Outpatient ROGERSLARA MEANS YANELY BRUCE [id number] Yanely Seybold 2023-05-16 00:00:00 2023-05-16 00:00:00 Outpatient JACKY MATHEW [id number] Yanely Seybold 2023-05-15 08:30:00 2023-05-15 08:30:00 Outpatient JACKY MATHEW [id number] [facility] [facility] 2023-05-15 00:00:00 2023-05-15 00:00:00 Outpatient MD YANELY BALLARD [id number] [facility] 2023-05-12 00:00:00 2023-05-12 00:00:00 Outpatient JACKY MATHEW YANELY BRUCE [id number] [facility] 2023-05-10 00:00:00 2023-05-10 00:00:00 Outpatient YANELY BRUCE [id number] [facility] 2023-05-03 00:00:00 2023-05-03 00:00:00 Outpatient PREASHLIDAX Ludwig YANELY BRUCE [id number] [facility] 2023-05-01 10:30:00 2023-05-01 10:30:00 Outpatient PREZAALICIA LudwigMAU BRUCE [id number] [facility] 2023-05-01 09:45:00 2023-05-01 09:45:00 Outpatient KRYSTYNA JOHNSON YANELY BRUCE [id number] [facility] 2023-05-01 00:00:00 2023-05-01 00:00:00 Outpatient DAX PRADO YANELY BRUCE [id number] [facility] 2023-04-25 09:30:00 2023-04-25 09:30:00 Outpatient PREZASDAX YANELY BRUCE [id number] [facility] 2023-04-18 14:00:00 2023-04-18 14:00:00 Outpatient ROGERSLARA BARRIOS YANELY BRUCE [id number] [facility] 2023-04-11 11:30:00 2023-04-11 11:30:00 Outpatient PREZASDAX YANELY BRUCE [id number] Yanely Seybold 2023-04-07 00:00:00 2023-04-07 00:00:00 Outpatient YANELY BRUCE [id number] Yanely Seybold 2023-04-04 00:00:00 2023-04-04 00:00:00 Outpatient YANELY BRUCE [id number] [facility] 2023-03-29 00:00:00 2023-03-29 00:00:00 Outpatient YANELY BRUCE [id number] Yanely [facility] 2023-03-27 00:00:00 2023-03-27 00:00:00 Outpatient KRYSTYNA JOHNSON YANELY BRUCE [id number] [facility] 2023-03-27 00:00:00 2023-03-27 00:00:00 Outpatient JOHANDAX YANELY BRUCE [id number] [facility]ely [facility] 2023-03-22 13:30:00 2023-03-22 13:30:00 Outpatient LARA ROGERS YANELY BRUCE [id number] Yanely [facility] 2023-03-22 00:00:00 2023-03-22 00:00:00 Outpatient YANELY BRUCE [id number] [facility] 2023-03-22 00:00:00 2023-03-22 00:00:00 Outpatient LETHA RODRIGUEZ [id number] [facility] 2023-03-13 00:00:00 2023-03-13 00:00:00 Outpatient DAX PRADO [facility] [id number] [facility] 2023-03-13 00:00:00 2023-03-13 00:00:00 Outpatient LETHA RODRIGUEZ [id number] [facility]ely [facility] 2023-03-03 08:40:00 2023-03-03 08:40:00 Outpatient ROGELIO OJEDA [id number] [facility]ely [facility] 2023-03-03 00:00:00 2023-03-03 00:00:00 Outpatient DAX PRADO YANELY BRUCE [id number] Yanely Seybold 2023-03-03 00:00:00 2023-03-03 00:00:00 Outpatient YANELY BRUCE [id number] [facility] 2023-02-26 00:00:00 2023-02-26 00:00:00 Outpatient ELIZABETHKRYSTYNA YANELY BRUCE [id number] [facility] 2023-02-22 00:00:00 2023-02-22 00:00:00 Outpatient YANELY BRUCE [id number] Yanely Seybold 2023-02-20 00:00:00 2023-02-20 00:00:00 Outpatient YANELY BRUCE [id number] [facility] 2023-02-20 00:00:00 2023-02-20 00:00:00 Outpatient PREZADAX Ludwig YANELY BRUCE [id number] Yanely [facility] 2023-02-19 00:00:00 2023-02-19 00:00:00 Outpatient CALROS NOEL YANELY BRUCE [id number] Yanely [facility] 2023-02-17 00:00:00 2023-02-17 00:00:00 Outpatient PREZAS, DAX YANELY BRUCE [id number] Yanely [facility] 2023-02-10 08:10:00 2023-02-10 08:10:00 Outpatient RUSTYDANIELROGELIO YANELY BRUCE [id number] Yanely [facility] 2023-02-08 00:00:00 2023-02-08 00:00:00 Outpatient PREZAS, DAX YANELY BRUCE [id number] [facility] 2023-02-08 00:00:00 2023-02-08 00:00:00 Outpatient PREZAS, DAX [facility] [id number] [facility] 2023-02-08 00:00:00 2023-02-08 00:00:00 Outpatient YANELY BRUCE [id number] [facility]ely [facility] 2023-02-07 00:00:00 2023-02-07 00:00:00 Outpatient PREZAS, DAX YANELY BRUCE [id number] [facility] 2023-02-02 09:00:00 2023-02-02 09:00:00 Outpatient PARRISH HALE YANELY BRUCE [id number] Yanely [facility] 2023-02-02 00:00:00 2023-02-02 00:00:00 Outpatient YANELY BRUCE [id number] [facility] 2023-02-01 00:00:00 2023-02-01 00:00:00 Outpatient PREZASDAX YANELY BRUCE [id number] [facility] 2023-01-31 08:40:00 2023-01-31 08:40:00 Outpatient LABKirti BRUCE YANELY [id number] Yanely Seybold 2023-01-30 09:00:00 2023-01-30 09:00:00 Outpatient TORRIE Payton YANELY [id number] Yanely Seybold 2023-01-30 08:50:00 2023-01-30 08:50:00 Outpatient ROGELIO OJEDA YANELY BRUCE [id number] Yanely Seybold 2023-01-25 00:00:00 2023-01-25 00:00:00 Outpatient LETHA RODRIGUEZ YANELY BRUCE [id number] Yanely Seybold 2023-01-23 09:15:00 2023-01-23 09:15:00 Outpatient PREDAX HARRIS YANELY BRUCE [id number] [facility] 2023-01-16 10:45:00 2023-01-16 10:45:00 Outpatient KRYSTYNA JOHNSON YANELY BRUCE [id number] [facility] 2022-12-22 00:00:00 2022-12-22 00:00:00 Outpatient LETHA RODRIGUEZ YANELY BRUCE [id number] Yanely Seybold 2022-12-20 00:00:00 2022-12-20 00:00:00 Outpatient JYOTHIZAOziel, DAX YANELY BRUCE [id number] Yanely Seybold 2022-12-18 00:00:00 2022-12-18 00:00:00 Outpatient PREZASDAX YANELY BRUCE [id number] Yanely Seybold 2022-12-16 09:50:00 2022-12-16 09:50:00 Outpatient LAB90 YANELY YANELY [id number] Yanely Seybold 2022-12-16 09:00:00 2022-12-16 09:00:00 Outpatient PREZASDAX YANELY BRUCE [id number] Yanely Seybold 2022-12-16 00:00:00 2022-12-16 00:00:00 Outpatient PREZASALICIADAXMAU BRUCE [id number] Yanely Seybold 2022-12-09 09:10:00 2022-12-09 09:10:00 Outpatient LAB90 YANELY BRUCE [id number] Yanely Seybemmanuel 2022-12-09 00:00:00 2022-12-09 00:00:00 Outpatient MD YANELY BALLARD [id number] Yanely Seybemmanuel 2022-11-18 15:15:00 2022-11-18 15:15:00 Outpatient PREZAOziel, DAX BRUCE [id number] Yanely Seybemmanuel 2022-11-14 00:00:00 2022-11-14 00:00:00 Outpatient LETHA RODRIGUEZ [id number] Yanely Seybemmanuel 2022-11-09 00:00:00 2022-11-09 00:00:00 Outpatient LETHA RODRIGUEZ [id number] Yanely Seybemmanuel 2022-11-07 09:15:00 2022-11-07 09:15:00 Outpatient ELIZABETH KRYSTYNA YANELY BRUCE [id number] Yanely Seybemmanuel 2022-10-25 00:00:00 2022-10-25 00:00:00 Outpatient KRYSTYNA JOHNSON YANELY BRUCE [id number] Yanely Seybemmanuel 2022-10-25 00:00:00 2022-10-25 00:00:00 Outpatient ELIZABETHKRYSTYNA YANELY BRUCE [id number] [facility]ely [facility] 2022-10-19 00:00:00 2022-10-19 00:00:00 Outpatient PREZAS, DAX BRUCE [id number] Yanely Seybold 2022-10-11 00:00:00 2022-10-11 00:00:00 Outpatient PREZAS, ADX BRUCE [id number] Yanely Seybold 2022-10-07 08:10:00 2022-10-07 08:10:00 Outpatient LAB90 YANELY BRUCE [id number] Yanely Seybold 2022-10-04 00:00:00 2022-10-04 00:00:00 Outpatient PREZAS, DAX BRUCE [id number] Yanely Seybold 2022-09-19 00:00:00 2022-09-19 00:00:00 Outpatient LETHA RODRIGUEZ [id number] Yanely Seybold 2022-09-14 00:00:00 2022-09-14 00:00:00 Outpatient LETHA RODRIGUEZ YANELY BRUCE [id number] Yanely Seybold 2022-08-25 00:00:00 2022-08-25 00:00:00 Outpatient ELIZABETHKRYSTYNA YANELY BRUCE [id number] Yanely Seybold 2022-08-14 00:00:00 2022-08-14 00:00:00 Outpatient ELIZABETHKRYSTYNA YANELY BRUCE [id number] Yanely Seybold 2022-08-04 00:00:00 2022-08-04 00:00:00 Outpatient LETHA RODRIGUEZ YANELY BRUCE [id number] Yanely Seybold 2022-07-25 15:00:00 2022-07-25 15:00:00 Outpatient AMBERJesus ROBYN BRUCE [id number] Yanely Seybold 2022-07-22 00:00:00 2022-07-22 00:00:00 Outpatient LETHA RODRIGUEZ YANELY BRUCE [id number] Yanely Seybold 2022-07-21 14:00:00 2022-07-21 14:00:00 Outpatient AMBERJesus, ROBYN BRUCE [id number] Yanely Seybold 2022-07-21 00:00:00 2022-07-21 00:00:00 Outpatient AMBERJesus ROBYN BRUCE [id number] Yanely Seybold 2022-07-11 00:00:00 2022-07-11 00:00:00 Outpatient YANELY BRUCE [id number] Yanely Seybold 2022-07-07 00:00:00 2022-07-07 00:00:00 Outpatient YANELY BRUCE [id number] Yanely Seybold 2022-06-28 00:00:00 2022-06-28 00:00:00 Outpatient DAX PRADO [id number] Yanely Seybold 2022-06-21 00:00:00 2022-06-21 00:00:00 Outpatient KRYSTYNA JOHNSON [id number] Yanely Seybold 2022-06-16 08:55:00 2022-06-16 08:55:00 Outpatient HARJINDER YANELY BRUCE [id number] [facility] 2022-06-15 00:00:00 2022-06-15 00:00:00 Outpatient DAX PRADO YANELY BRUCE [id number] [facility] 2022-06-03 09:20:00 2022-06-03 09:20:00 Outpatient ROGELIO OJEDA YANELY BRUCE [id number] [facility] 2022-06-02 00:00:00 2022-06-02 00:00:00 Orders Only Doctor Unassigned, [place] [facility] 1.2.840.114 350.1.13.10 4.2.7.2.686 [id number] [facility] 2022-05-18 00:00:00 2022-05-18 00:00:00 Outpatient LETHA RODRIGUEZ [id number] [facility] 2022-05-16 10:45:00 2022-05-16 10:45:00 Outpatient KRYSTYNA JOHNSON YANELY BRUCE [id number] [facility] 2022-05-11 00:00:00 2022-05-11 00:00:00 Outpatient LETHA RODRIGUEZ [id number] [facility] 2022-05-11 00:00:00 2022-05-11 00:00:00 Outpatient YANELY BRUCE [id number] Yanely [facility] 2022-05-04 09:25:00 2022-05-04 09:25:00 Outpatient LUIS BEVERLY YANELY BRUCE [id number] [facility] 2022-05-04 00:00:00 2022-05-04 00:00:00 Outpatient LETHA RODRIGUEZ [id number] Yanely [facility] 2022-05-03 00:00:00 2022-05-03 00:00:00 Orders Only Doctor Unassigned, [place] [facility] 1.2.840.114 350.1.13.10 4.2.7.2.686 [id number] [facility] 2022-04-27 00:00:00 2022-04-27 00:00:00 Orders Only Doctor Unassigned, [place] [facility] 1.2.840.114 350.1.13.10 4.2.7.2.686 [id number] [facility] 2022-04-22 08:50:00 2022-04-22 08:50:00 Outpatient ROGELIO OJEDA [id number] Yanely [facility] 2022-04-21 09:10:00 2022-04-21 09:10:00 Outpatient BEVERLY SMITH [id number] Yanely [facility] 2022-04-11 00:00:00 2022-04-11 00:00:00 Outpatient LETHA RODRIGUEZ [id number] Yanely [facility] 2022-04-08 08:00:00 2022-04-08 08:00:00 Outpatient LAB90 [facility] [id number] [facility]22-04-[facility] 00:00:00 2022-04-08 00:00:00 Outpatient DAX PRADO [id number] [facility] 2022-03-11 09:10:00 2022-03-11 09:10:00 Outpatient ROGELIO OJEDA [id number] Yanely [facility] 2022-03-10 09:05:00 2022-03-10 09:05:00 Outpatient TORRIE Payton [id number] [facility] 2022-03-10 08:45:00 2022-03-10 08:45:00 Outpatient DIRK BLANC [id number] Yanely [facility] 2022 00:00:00 2022 00:00:00 Outpatient LETHA RODRIGUEZ [id number] Yanely [facility] 2022-03-03 08:25:00 2022-03-03 08:25:00 Outpatient LAB90 YANELY BRUCE [id number] [facility] 2022-03-03 00:00:00 2022-03-03 00:00:00 Outpatient DAX PRADO YANELY BRUCE [id number] Yanely [facility] 2022-02-25 09:00:00 2022-02-25 09:00:00 Outpatient JENNIFERLETHA GONZALEZ YANELY BRUCE [id number] Yanely [facility] 2022-02-16 07:30:00 2022-02-16 07:30:00 Outpatient YANELY BRUCE [id number] Yanely [facility] 2022-02-10 08:15:00 2022-02-10 08:15:00 [facility].114 350.1.13.13 1.2.7.2.686 [id number] Yanely [facility] 2022-02-09 06:30:00 2022-02-09 06:30:00 Outpatient KHARI BLANCA YANELY BRUCE [id number] Yanely [facility] 2022-02-09 00:00:00 2022-02-09 00:00:00 Outpatient NAOMY CONN YANELY BRUCE [id number] Yanely [facility] 2022-02-03 10:00:00 2022-02-03 10:00:00 Outpatient COVID-SENAIT CARMICHAELANA LAURA YANELY BRUCE [id number] [facility] 2022-02-03 09:00:00 2022-02-03 09:15:00 Office Visit Letha Rodriguez [place] 1..840.114 350.1.13.13 1.2.7.2.686 [id number] Yanely [facility] 2022-02-03 00:00:00 2022-02-03 00:00:00 Outpatient CARLOS NOEL [id number] [facility] 2022-01-28 08:00:00 2022-01-28 08:10:00 Office Visit Rogelio Ojeda [facility] 1..840.114 350.1.13.13 1.2.7.2.686 [id number] Yanely Jarrett 2022-01-28 07:50:00 2022-01-28 07:50:00 Outpatient TOMOGRAPHY, FBMDC YANELY BRUCE [id number] Yanely Jarrett 2022-01-25 08:30:00 2022-01-25 08:30:00 Outpatient 1, OPTICAL YANELY BRUCE [id number] Yanely Ahmadiybemmanuel 2022-01-25 08:15:00 2022-01-25 08:30:00 Office Visit [facility] 1.2.840.114 350.1.13.13 1.2.7.2.686 [id number] Yanely Jarrett 2022-01-24 11:25:00 2022-01-24 11:25:00 Outpatient LAB47 YANELY BRUCE [id number] Yanely Jarrett 2022-01-24 10:45:00 2022-01-24 11:00:00 Office Visit Krystyna Johnson 1.2.840.114 350.1.13.13 1.2.7.2.686 [id number] Ynaely Jarrett 2022-01-19 08:45:00 2022-01-19 08:45:00 Outpatient LAB47 YANELY BRUCE [id number] Yanely Jarrett 2022-01-19 08:15:00 2022-01-19 08:15:00 Office Visit CARLOS NOEL 1.2.840.114 350.1.13.13 1.2.7.2.686 [id number] Yanely Ahmadiybemmanuel 2022-01-04 08:00:00 2022-01-04 08:15:00 Office Visit [facility] 1.2.840.114 350.1.13.13 1.2.7.2.686 [id number] Yanely Ahmadiybemmanuel 2022-01-04 08:00:00 2022-01-04 08:00:00 Outpatient [facility] YANELY BRUCE [id number] [facility]ely [facility] 2022-01-04 00:00:00 2022-01-04 00:00:00 Outpatient DIRK BLANC YANELY BRUCE [id number] Yanely Jarrett 2022-01-03 07:30:00 2022-01-03 07:30:00 Outpatient DIRK BLANC YANELY BRUCE [id number] Yanely Jarrett 2022-01-03 00:00:00 2022-01-03 00:00:00 Outpatient NATALIE BACA Y[facility]ELY BRUCE [id number] [facility] 2021-12-24 10:00:00 2021-12-24 10:00:00 Education TUCKER 1.2.840.114 350.1.13.13 1.2.7.2.686 [id number] [facility] 2021-12-24 00:00:00 2021-12-24 00:00:00 Outpatient JAVIERLAWANDA SHERIDAN YANELY BRU[facility] [id number] [facility] 2021-12-21 09:00:00 2021-12-21 09:30:00 Office Visit Lawanda Lyles [facility] 1.2.840.114 350.1.13.13 1.2.7.2.686 [id number] Yanely Ahmadiemmanuel 2021-12-20 00:00:00 2021-12-20 00:00:00 Outpatient LETHA RODRIGUEZ [id number] [facility] 2021-12-17 08:00:00 2021-12-17 08:10:00 Office Visit Rogelio Ojeda [facility] 1.2.840.114 350.1.13.13 1.2.7.2.686 [id number] Yanely [facility] 2021-12-08 00:00:00 2021-12-08 00:00:00 Outpatient LETHA RODRIGUEZ [id number] [facility] 2021-11-23 00:00:00 2021-11-23 00:00:00 Outpatient LETHA RODRIGUEZ [id number] Yanely [facility] 2021-11-12 10:30:00 2021-11-12 10:40:00 Office Visit Rogelio Ojeda [facility] 1.2.840.114 350.1.13.13 1.2.7.2.686 [id number] [facility] 2021-11-12 08:30:00 2021-11-12 08:30:00 Outpatient ROGELIO OJEDA YANELY BRUCE [id number] Yanely [facility] 2021-11-12 08:10:00 2021-11-12 08:10:00 Outpatient ROGELIO OJEDA YANELY BRUCE [id number] [facility] 2021-11-10 00:00:00 2021-11-10 00:00:00 Outpatient KRYSTYNA JOHNSON [id number] [facility] 2021-11-10 00:00:00 2021-11-10 00:00:00 Outpatient LETHA RODRIGUEZ [id number] [facility] 2021-11-05 08:00:00 2021-11-05 08:00:00 Outpatient LAWANDA LYLES [id number] [facility] 2021-11-04 00:00:00 2021-11-04 00:00:00 Outpatient KRYSTYNA JOHNSON [id number] [facility] 2021-10-29 08:45:00 2021-10-29 09:00:00 [facility] 1.2.840.114 350.1.13.13 1.2.7.2.686 [id number] [facility] 2021-10-20 00:00:00 2021-10-20 00:00:00 Outpatient LETHA RODRIGUEZ [id number] [facility] 2021-10-20 00:00:00 2021-10-20 00:00:00 Outpatient LETHA RODRIGUEZ [id number] [facility] 2021-09-27 00:00:00 2021-09-27 00:00:00 Domenica Bonilla [facility] 1..840.114 350.1.13.10 4.2.7.2.686 [id number] [facility] 2021-09-24 08:25:00 2021-09-24 08:25:00 Outpatient TOMOGRAPHY, [facility] YANELY BRUCE [id number] Yanely [facility] 2021-09-24 08:10:00 2021-09-24 08:20:00 Office Visit Rogelio Ojeda [facility] 1..840.114 350.1.13.13 1.2.7.2.686 [id number] [facility] 2021-09-23 09:30:00 2021-09-23 09:30:00 Outpatient LAWANDA LYLES [id number] Yanely [facility] 2021-09-15 00:00:00 2021-09-15 00:00:00 Outpatient LETHA RODRIGUEZ [id number] [facility] 2021-09-09 00:00:00 2021-09-09 00:00:00 Outpatient LETHA RODRIGUEZ [id number] [facility] 2021-08-27 00:00:00 2021-08-27 00:00:00 Outpatient CHELLE CUTLER [id number] [facility] 2021-08-25 09:05:00 2021-08-25 09:05:00 Outpatient LAB90 YANELY BRUCE [id number] [facility] 2021-08-25 08:00:00 2021-08-25 08:45:00 Office Visit Letha Rodriguez 1..840.114 350.1.13.13 1.2.7.2.686 [id number] [facility] 2021-08-17 10:00:00 2021-08-17 10:00:00 Outpatient LAB90 YANELY BRUCE [id number] Yanely [facility] 2021-08-17 09:25:00 2021-08-17 09:25:00 Outpatient LAB90 YANELY BRUCE [id number] Yanely [facility] 2021-08-17 00:00:00 2021-08-17 00:00:00 [facility]ill [facility]omenica [facility] 1.2.840.114 350.1.13.10 4.2.7.2.686 [id number] [facility] 2021-08-16 00:00:00 2021-08-16 00:00:00 Refill Vazquez [facility] 1.2.840.114 350.1.13.10 4.2.7.2.686 [id number] [facility] 2021-08-13 09:40:00 2021-08-13 09:50:00 Office Visit Rogelio Ojeda [facility] 1.2.840.114 350.1.13.13 1.2.7.2.686 [id number] [facility] 2021-08-09 10:45:00 2021-08-09 11:00:00 Office Visit Krystyna Johnson 1.2.840.114 350.1.13.13 1.2.7.2.686 [id number] Yanely [facility] 2021-08-03 00:00:00 2021-08-03 00:00:00 Outpatient CARLOS NOEL [id number] Yanely [facility] 2021-08-03 00:00:00 2021-08-03 00:00:00 Outpatient LETHA RODRIGUEZ [id number] Yanely [facility] 2021-08-03 00:00:00 2021-08-03 00:00:00 Outpatient KRYSTYNA JOHNSON [id number] Yanely [facility] 2021-08-03 00:00:00 2021-08-03 00:00:00 Outpatient LETHA RODRIGUEZ [id number] Yanely [facility] 2021-08-03 00:00:00 2021-08-03 00:00:00 Marques Arias [place] [facility] 1..840.114 350.1.13.10 4.2.7.2.686 [id number] [facility] 2021-07-02 08:30:00 2021-07-02 08:40:00 Office Visit tachouk [facility] [place] 1..840.114 350.1.13.13 1.2.7.2.686 [id number] Yanely [facility] 2021-06-23 08:20:00 2021-06-23 08:20:00 Outpatient LAB90 YANELY BRUCE [id number] Yanely [facility] 2021-06-22 11:20:00 2021-06-22 11:20:00 Outpatient JUSTINA ANDRADEMELANIESTEVE [facility] [id number] [facility] 2021-06-14 10:15:00 2021-06-14 10:15:00 Outpatient KRYSTYNA JOHNSON [id number] Yanely [facility] 2021-05-21 08:10:00 2021-05-21 08:20:00 Office Visit Rusty [facility] [place] 1..840.114 350.1.13.13 1.2.7.2.686 [id number] Yanely [facility] 2021-05-12 00:00:00 2021-05-12 00:00:00 Outpatient CARLOS NOEL [id number] Yanely Jarrett 2021-05-11 09:00:00 2021-05-11 09:00:00 Outpatient CARLOS NOEL [id number] Yan[facility] 2021-05-11 00:00:00 2021-05-11 00:00:00 Outpatient LETHA RODRIGUEZ [id number] [facility] 2021-05-06 15:15:00 2021-05-06 15:15:00 Outpatient TRED45 YANELY BRUCE [id number] Yanely ybemmanuel 2021-05-06 15:00:00 2021-05-06 15:00:00 Outpatient SWAB, FBMDC YANELY BRUCE [id number] Yanely ybemmanuel 2021-05-06 15:00:00 2021-05-06 15:00:00 Outpatient [id number]-[id number] YANELY BRUCE [id number] [facility] 2021-05-05 00:00:00 2021-05-05 00:00:00 Outpatient CARLOS NOEL [id number] Yanely [facility] 2021-05-03 00:00:00 2021-05-03 00:00:00 Outpatient YANELY BRUCE [id number] [facility]ely [facility] 2021-05-03 00:00:00 2021-05-03 00:00:00 Outpatient NARCISO GUPTA [id number] [facility] 2021-04-23 08:00:00 2021-04-23 08:10:00 Office Visit Rogelio avery [facility] 1.2.840.114 350.1.13.13 1.2.7.2.686 [id number] Yanely [facility] 2021-04-19 00:00:00 2021-04-19 00:00:00 Outpatient MD YANELY BALLARD [id number] [facility]ely [facility] 2021-04-08 14:00:00 2021-04-08 14:00:00 Outpatient YANELY BRUCE [id number] [facility] 2021-04-06 00:00:00 2021-04-06 00:00:00 Outpatient LETHA RODRIGUEZ [id number] [facility] 2021-04-01 00:00:00 2021-04-01 00:00:00 Outpatient NARCISO GUPTA [id number] [facility] 2021-03-19 09:01:05 2021-03-19 09:11:05 Office Visit Rogelio Ojeda [facility] 1.84.114 350.1.13.13 1.2.7.2.686 [id number] Yanely [facility] 2021-03-18 00:00:00 2021-03-18 00:00:00 Outpatient LAWANDA LYLES [id number] [facility] 2021-03-17 00:00:00 2021-03-17 00:00:00 Outpatient ELIZABETH KRYSTYNA YANELY BRUCE [id number] Yanely [facility] 2021-03-16 00:00:00 2021-03-16 00:00:00 Outpatient ELIZABETH KRYSTYNA YANELY BRUCE [id number] Yanely [facility] 2021-03-15 14:42:50 2021-03-15 15:12:50 Office Visit Elizabeth Krystyna Aixa [facility] 1.84.114 350.1.13.13 1.2.7.2.686 [id number] Yanely [facility] 2021-02-26 00:00:00 2021-02-26 00:00:00 Outpatient CARLOS NOEL [id number] [facility] 2021-02-22 00:00:00 2021-02-22 00:00:00 Telephone Domenica Arias [facility] 1.84.114 350.1.13.10 4.2.7.2.686 [id number] [facility] 2021-02-22 00:00:00 2021-02-22 00:00:00 Orders Only Doctor Unassigned, [place] [facility] 1..114 350.1.13.10 4.2.7.2.686 [id number] [facility] 2021-02-19 07:47:03 2021-02-19 08:22:01 Telemedici Lawanda [facility] 1..114 350.1.13.13 1.2.7.2.686 [id number] Yanely Ahmadiemmanuel 2021-02-18 00:00:00 2021-02-18 00:00:00 Outpatient LETHA RODRIGUEZ [id number] Yanely emmanuel 2021-02-18 00:00:00 2021-02-18 00:00:00 Outpatient COREYKAYLIE YANELY BRUCE [id number] Yanely [facility] 2021-02-18 00:00:00 2021-02-18 00:00:00 Outpatient CARLOS NOEL [id number] Yanely [facility] 2021-02-17 15:45:00 2021-02-17 15:45:00 Outpatient MODE YANELY BRUCE [id number] [facility] 2021-02-17 14:40:10 2021-02-17 14:55:10 Office Visit Carlos Noel [id number] Yanely [facility] 2021-02-17 14:30:00 2021-02-17 14:30:00 Outpatient TUCKER HAYNES [id number] Yanely [facility] 2021-02-17 00:00:00 2021-02-17 00:00:00 Outpatient [facility] [id number] [facility] 2021-02-12 13:22:59 2021-02-12 13:32:59 Office Visit Rogelio Ojeda [facility] [id number] [facility] 2021-02-09 13:20:00 2021-02-09 13:20:00 Outpatient DIANA MARROQUIN [id number] Yanely [facility] 2021-01-12 00:00:00 2021-01-12 00:00:00 Outpatient LETHA RODRIGUEZ [id number] Yanely Jarrett 2021-01-05 08:10:00 2021-01-05 08:10:00 Outpatient LAB90 YANELY YANELY [id number] Yanelyshala Jarrett 2020-12-28 13:30:00 2020-12-28 13:30:00 Outpatient LETHA RODRIGUEZ YANELY BRUCE [id number] Yanely Sealexemmanuel 2020-08-07 13:05:00 2020-08-07 13:05:00 Outpatient [facility] [id number] [facility] 2020-06-25 16:00:00 2020-06-25 16:00:00 Outpatient R GERARDO HALE [facility] [id number] [facility] 2020-06-19 11:13:36 2020-06-19 12:10:35 [facility] [id number] [facility] 2020-06-19 11:20:00 2020-06-19 11:20:00 [facility] [id number] 2019-10-23 10:20:00 2019-10-23 10:20:00 [facility] [id number] [facility] Results Test Description Test Time Test Comments Results Result Co mments Source Yanely Jarrett - ExternalREAGENT STRIP/BLOOD [id number] 16:57:00* Test Item Value Reference Range Interpretation Comme nts BLOOD SUGAR (test code = 877256) 353 mg/dL 65-99 A Lab Interpretation (test cod e = [id number]) Abnormal Yanely JarrettREAGENT STRIP/BLOOD [id number] 20:00:00* Test Item Value Reference Range Interpretation Comme nts BLOOD SUGAR (test code = 913635) 261 mg/dL 65-99 A Lab Interpretation (test cod e = [id number]) Abnormal Yanely Jarrett Notes Date/Time Note Provider Source 2024-07-04 10:08:22 Chief Complaint Patient presents with Physical Fasting for labs. Needs documentation about him needing a wheelchair Andreia Vasques LVN [facility] 2023-06-15 11:41:58 Chief Complaint Patient presents with Hand Numbness Numbness of the L hand/wrist for almost a week. Pt states that this started right after Dialysis. Taking ibuprofen when he can for the pain [facility] 2023-05-30 08:09:44 Chief Complaint Patient presents with Follow-Up Visit 4 week follow up Andreia Vasques LVN [facility] 2023-02-02 09:14:22 Formatting of this n ote is different from the original. Chief Complaint Patient presents with Sinus Problem [facility]
[2024-07-18 15:49] LABS: Absolute Eosinophils 0.1 K/uL (0-0.5); Absolute Lymphocytes (CBC) 0.5 K/uL (0.7-4.9); Absolute Monocytes 0.8 K/uL (0.1-1.3); Absolute Neutrophil 11.7 K/uL (1.8-8.0); Basophils % 0.2 % (0-1.3); Hematocrit 28.9 % (39.6-49.0); Hemoglobin 9.7 g/dL (13.6-17.9); MCH 30.5 pg (27.0-35.0); MCHC 33.6 g/dL (32.0-36.0); MCV 90.8 fL (80-100); Monocytes % 6.1 % (3.3-12.3); Neutrophils % 88.7 % (41.7-73.7); Platelets 488 thou/uL (152-406); RBC Red Blood Cell Count 3.18 M/uL (4.33-5.43); Red Cell Distribution Width 14.4 % (12.1-15.2)
[2024-07-18 16:09] LABS: PT Prothrombin Time 19.1 SECONDS (9.4-12.5); PTT, Activated Partial Thromb 39.6 SECONDS (24.3-36.9); Protime INR 1.83
--- NOTE | 2024-07-18 16:17 | EDPHYS ---
Physician Documentation [facility] Name: Jose Gonzales Age: 59 yrs Sex: Male : 1965 Arrival Date: 07/18/2024 Time: 14:35 Bed 16 Private MD: ED Physician Dakota Mac HPI: 07/18 16:16 This 59 yrs old Male presents to ER via EMS with complaints of Problem with Dialysis rt Port. 16:16 Patient is on peritoneal dialysis, has had intermittent fevers for the past few days. rt Cultures were drawn from the peritoneal dialysis catheter which grew yeast, gram-positive's. Denies abdominal pain, acute complaints, sent by his veneer jointer offbearer to have PD catheter removed and HD catheter placed. Denies of acute complaints at this time, symptoms are moderate in severity, no other aggravating or alleviating factors.. Historical: - Allergies: 14:52 bleach; iw - PMHx: 14:52 chronic kidney disease; Congestive heart failure; diabetes mellitus; Enlarged Heart; iw Hypertensive disorder; PERIPHERAL NEUROPATHY; Sleep Apnea; dialysis; - PSHx: 14:52 Appendectomy; cataracts; knee surgery; iw - Immunization history:: Adult Immunizations unknown. - Infectious Disease History:: Denies. - Family history:: not pertinent. - Social history:: Smoking status: unknown. ROS: 16:16 Cardiovascular: Negative for chest pain, palpitations, and edema, Respiratory: Negative rt for shortness of breath, cough, wheezing, and pleuritic chest pain, MS/Extremity: Negative for injury and deformity, Skin: Negative for injury, rash, and discoloration, Neuro: Negative for headache, weakness, numbness, tingling, and seizure, 16:16 Constitutional: Positive for fever, malaise, Exam: 16:16 Constitutional: This is a well developed, well nourished patient who is awake, alert, rt and in no acute distress. Head/Face: Normocephalic, atraumatic. Chest/axilla: Normal chest wall appearance and motion. Nontender with no deformity. No lesions are appreciated. Cardiovascular: Regular rate and rhythm with a normal S1 and S2. No gallops, murmurs, or rubs. Normal PMI, no JVD. No pulse deficits. Respiratory: Lungs have equal breath sounds bilaterally, clear to auscultation and percussion. No rales, rhonchi or wheezes noted. No increased work of breathing, no retractions or nasal flaring. Skin: Warm, dry with normal turgor. Normal color with no rashes, no lesions, and no evidence of cellulitis. MS/ Extremity: Pulses equal, no cyanosis. Neurovascular intact. Full, normal range of motion. 16:16 Abdomen/GI: Peritoneal dialysis catheter in place, no abdominal tenderness, 17:36 ECG was reviewed by the Attending Physician. rt Vital Signs: 15:00 BP 153 / 100; Pulse 78; Resp 18; Temp 99.3; Pulse Ox 100% on R/A; Weight 163.29 kg; iw Height 6 ft. 2 in. ; Pain 0/10; 16:36 BP 165 / 98; Pulse 78; Resp 20; Pulse Ox 99% on R/A; kj2 18:01 BP 91 / 57; Pulse 78; Resp 18; Pulse Ox 98% ; kj2 15:00 Body Mass Index 46.22 (163.29 kg, 187.96 cm) iw 15:00 Pain Scale: Adult iw MDM: 14:47 Medical Screening Exam initiated rt 16:16 Differential Diagnosis SBP. Data reviewed: vital signs, nurses notes, lab test rt result(s), radiologic studies. Consideration of Admission/Observation Patient was admitted/placed on observation. Management of patient was discussed with the following: Power Lineman Technician: Discussed with Dr. Morin once patient mated to the hospital on for, syncope fluconazole have peritoneal dialysis catheter removed and tip her dialysis catheter placed. I discussed with Dr. Jimenez who will do these in the morning, recommends n.p.o. past midnight.. I considered the following discharge prescriptions or medication management in the emergency department Medications were administered in the Emergency Department. See MAR. Care significantly affected by the following chronic conditions: Chronic Kidney Disease. Counseling: I had a detailed discussion with the patient and/or guardian regarding the historical points, exam findings, and any diagnostic results supporting the discharge/admit diagnosis, lab results, the need for further work-up and treatment in the hospital. Response to treatment: There is no appreciated change of the patient's symptoms at this time. 07/18 15:08 Order name: Blood Culture Adult (2) rt 07/18 15:08 Order name: CBC with Diff; Complete Time: 16:30 rt 07/18 15:08 Order name: CMP; Complete Time: 16:30 rt 07/18 15:08 Order name: Lactate w/ 2H reflex if indic.; Complete Time: 16:30 rt 07/18 15:08 Order name: Protime (+inr); Complete Time: 16:30 rt 07/18 15:08 Order name: Ptt, Activated; Complete Time: 16:30 rt 07/18 16:36 Order name: Basic Metabolic Panel EDMS 07/18 16:36 Order name: Basic Metabolic Panel EDMS 07/18 16:36 Order name: Basic Metabolic Panel EDMS 07/18 16:36 Order name: Basic Metabolic Panel EDMS 07/18 16:36 Order name: Basic Metabolic Panel EDMS 07/18 16:36 Order name: Basic Metabolic Panel EDMS 07/18 16:36 Order name: Basic Metabolic Panel EDMS 07/18 16:36 Order name: CBC with Automated Diff EDMS 07/18 16:36 Order name: CBC with Automated Diff EDMS 07/18 16:36 Order name: CBC with Automated Diff EDMS 07/18 16:36 Order name: CBC with Automated Diff EDMS 07/18 16:36 Order name: Magnesium EDMS 07/18 16:36 Order name: Magnesium EDMS 07/18 16:36 Order name: Magnesium EDMS 07/18 16:36 Order name: Magnesium EDMS 07/18 16:36 Order name: Magnesium EDMS 07/18 16:36 Order name: Magnesium EDMS 07/18 16:36 Order name: Magnesium EDMS 07/18 16:36 Order name: Phosphorus EDMS 07/18 16:36 Order name: Phosphorus EDMS 07/18 16:36 Order name: Phosphorus EDMS 07/18 16:36 Order name: Phosphorus EDMS 07/18 16:36 Order name: Phosphorus EDMS 07/18 16:36 Order name: Phosphorus EDMS 07/18 16:36 Order name: Phosphorus EDMS 07/18 16:37 Order name: CBC with Automated Diff EDMS 07/18 16:37 Order name: CBC with Automated Diff EDMS 07/18 16:37 Order name: CBC with Automated Diff EDMS 07/18 16:50 Order name: Chest Single View XRAY la1 07/18 18:28 Order name: RAD EDMS 07/18 15:08 Order name: Accucheck rt 07/18 15:08 Order name: Cardiac monitoring; Complete Time: 18:01 rt 07/18 15:08 Order name: EKG - Nurse/Tech; Complete Time: 18:01 rt 07/18 15:08 Order name: IV Saline Lock - Large Bore; Complete Time: 16:35 rt 07/18 15:08 Order name: Labs collected and sent; Complete Time: 16:35 rt 07/18 15:08 Order name: O2 Per Protocol; Complete Time: 16:35 rt 07/18 15:08 Order name: O2 Sat Monitoring; Complete Time: 16:35 rt 07/18 15:08 Order name: Vital Signs; Complete Time: 16:35 rt EC:36 Rate is 81 beats/min. Rhythm is regular, Normal Sinus Rhythm with No ectopy. QRS [place] rt is Normal. NH interval is normal. QRS interval is normal. QT interval is normal. No Q waves. T waves are Normal. No ST changes noted. Interpreted by me. Administered Medications: 16:34 Drug: vancoMYCIN IVPB 1 grams IVPB once over 2 hrs Route: IVPB; Infused Over: 2 hrs; kj2 Site: left antecubital; 19:31 Follow up: IV Status: Completed infusion; IV Intake: 250ml kj2 16:34 Drug: Acetaminophen PO 1000 mg PO once Route: PO; kj2 19:32 Follow up: Response: No adverse reaction kj2 18:01 Drug: Fluconazole IVPB 400 mg 200 ml IVPB once over 60 mins {Note: RIGHT SHOULDER.} kj2 Volume: 200 ml; Route: IVPB; Infused Over: 60 mins; Site: Other; 19:31 Follow up: Response: No adverse reaction; IV Status: Completed infusion; IV Intake: kj2 100ml Disposition Summary: 07/18/24 16:16 Hospitalization Ordered Notes: Hospitalization Status: Inpatient Admission rt Provider: Tres Goyal rt Location: Telemetry/MedSurg (Inpatient) rt Condition: Stable rt Problem: new rt Symptoms: are unchanged rt Bed/Room Type: Standard rt Room Assignment: 412(07/18/24 18:05) ty Diagnosis - Spontaneous bacterial peritonitis rt Forms: - Medication Reconciliation Form rt - SBAR form rt - Leadership Thank You Letter rt Signatures: Dispatcher Juan MiguelHost Valerie Doe RN RN iw Dakota Mac MD MD Red Sood Krystal, RN RN kj2 Corrections: (The following items were deleted from the chart) 18:05 16:16 rt teo
--- NOTE | 2024-07-18 16:17 | ER ---
Nurse's Notes [facility] Name: Jose Gonzales Age: 59 yrs Sex: Male : 1965 Arrival Date: 07/18/2024 Time: 14:35 Bed 16 Private MD: Diagnosis: Spontaneous bacterial peritonitis Presentation: 07/18 14:49 Chief complaint: EMS states: has been running fever for past week, home health nurse iw melissa something from his peritoneal dialysis port and it grew out some yeast, they said they were going to pull the port and start him on hemodialysis , rcp is Dr. Camacho. Coronavirus screen: At this time, the client does not indicate any symptoms associated with coronavirus-19. Ebola Screen: No symptoms or risks identified at this time. Risk Assessment: Do you want to hurt yourself or someone else? Patient reports no desire to harm self or others. Onset of symptoms was July 11, 2024. 14:49 Method Of Arrival: EMS: [facility] iw 14:49 Acuity: ANDREW 3 iw 19:52 Initial Sepsis Screen: Does the patient meet any 2 criteria? No. Patient's initial kj2 sepsis screen is negative. Does the patient have a suspected source of infection?. Historical: - Allergies: 14:52 bleach; iw - PMHx: 14:52 chronic kidney disease; Congestive heart failure; diabetes mellitus; Enlarged Heart; iw Hypertensive disorder; PERIPHERAL NEUROPATHY; Sleep Apnea; dialysis; - PSHx: 14:52 Appendectomy; cataracts; knee surgery; iw - Immunization history:: Adult Immunizations unknown. - Infectious Disease History:: Denies. - Family history:: not pertinent. - Social history:: Smoking status: unknown. Screenin:11 [facility] ED Fall Risk Assessment (Adult) History of falling in the last 3 months, iw including since admission No falls in past 3 months (0 pts) Confusion or Disorientation No (0 pts) Intoxicated or Sedated No (0 pts) Impaired Gait Yes (1 pt) Mobility Assist Device Used Yes (1 pt) Altered Elimination No (0 pt) Score/Fall Risk Level 0 - 2 = Low Risk Oriented to surroundings, Maintained a safe environment. Abuse screen: Denies threats or abuse. Nutritional screening: No deficits noted. Tuberculosis screening: No symptoms or risk factors identified. Assessment: 15:30 General: Appears in no apparent distress. Behavior is calm, cooperative. General: iw Reports chills for >3 days, fever for > 3 days, fatigue for >3 days. Pain: Complains of pain in right upper quadrant and right lower quadrant. Neuro: Level of Consciousness is awake, alert, obeys commands, Oriented to person, place, time, situation. Cardiovascular: Patient's skin is warm and dry. Cardiovascular: Denies chest pain. Respiratory: Respiratory effort is even, unlabored, Respiratory pattern is regular, symmetrical. GI: Abdomen is round obese, PD catheter to LLQ , site appears clean, minimal redness noted to insertion site, no drainage noted. Derm: Skin is intact. Musculoskeletal: Range of motion: intact in all extremities. 15:45 Reassessment: Patient appears in no apparent distress at this time. Patient and/or kj2 family updated on plan of care and expected duration. Pain level reassessed. Patient is alert, oriented x 3, equal unlabored respirations, skin warm/dry/pink. 16:37 Reassessment: Patient appears in no apparent distress at this time. Patient and/or kj2 family updated on plan of care and expected duration. Pain level reassessed. Patient is alert, oriented x 3, equal unlabored respirations, skin warm/dry/pink. 18:01 Reassessment: Patient appears in no apparent distress at this time. Patient and/or kj2 family updated on plan of care and expected duration. Pain level reassessed. Patient is alert, oriented x 3, equal unlabored respirations, skin warm/dry/pink. 19:54 Reassessment: Patient appears in no apparent distress at this time. Patient and/or kj2 family updated on plan of care and expected duration. Pain level reassessed. Patient is alert, oriented x 3, equal unlabored respirations, skin warm/dry/pink. Vital Signs: 15:00 BP 153 / 100; Pulse 78; Resp 18; Temp 99.3; Pulse Ox 100% on R/A; Weight 163.29 kg; iw Height 6 ft. 2 in. ; Pain 0/10; 16:36 BP 165 / 98; Pulse 78; Resp 20; Pulse Ox 99% on R/A; kj2 18:01 BP 91 / 57; Pulse 78; Resp 18; Pulse Ox 98% ; kj2 15:00 Body Mass Index 46.22 (163.29 kg, 187.96 cm) iw 15:00 Pain Scale: Adult iw ED Course: 14:39 Patient arrived in ED. iw 14:40 Dakota Mac MD is Attending Physician. rt 14:51 Triage completed. iw 14:59 Valerie Rodriguez RN is Primary Nurse. iw 15:00 Arm band placed on. iw 15:45 Patient has correct armband on for positive identification. Provided Education on: CALL kj2 LIGHT. 15:50 Initial lab(s) drawn, by me, sent to lab. Inserted saline lock: 20 gauge in left iw antecubital area, using aseptic technique. Blood collected. Flushed with 10 mL NS. 16:07 Inserted saline lock: 22 gauge in right ,using aseptic technique. shoulder Blood iw collected. Flushed with 10 mL NS. 16:07 Second set of blood cultures drawn by me. iw 16:16 Tres Goyal MD is Hospitalizing Provider. rt 19:52 No provider procedures requiring assistance completed. Patient admitted, IV remains in kj2 place. Administered Medications: 16:34 Drug: vancoMYCIN IVPB 1 grams IVPB once over 2 hrs Route: IVPB; Infused Over: 2 hrs; kj2 Site: left antecubital; 19:31 Follow up: IV Status: Completed infusion; IV Intake: 250ml kj2 16:34 Drug: Acetaminophen PO 1000 mg PO once Route: PO; kj2 19:32 Follow up: Response: No adverse reaction kj2 18:01 Drug: Fluconazole IVPB 400 mg 200 ml IVPB once over 60 mins {Note: RIGHT SHOULDER.} kj2 Volume: 200 ml; Route: IVPB; Infused Over: 60 mins; Site: Other; 19:31 Follow up: Response: No adverse reaction; IV Status: Completed infusion; IV Intake: kj2 100ml Medication: 16:11 VIS not applicable for this client. iw Intake: 19:31 IV: 100ml; Total: 100ml. kj2 19:31 IV: 250ml; Total: 350ml. kj2 Outcome: 16:16 Decision to Hospitalize by Provider. rt 19:53 Admitted to Tele accompanied by tech, via stretcher, room 412, kj2 19:53 Condition: stable 19:53 Instructed on the need for admit, 19:55 Patient left the ED. kj2 Signatures: Valerie Rodriguez RN Dakota Waters MD MD rt Penny Gaspar RN RN kj2 Corrections: (The following items were deleted from the chart) 15:02 15:00 BP 153 / 100; Pulse 78bpm; Resp 18bpm; Pulse Ox 100% RA; Temp 99.3F; lisa gonzalez
[2024-07-18 16:18] LABS: Albumin 1.8 g/dL (3.4-5.0); Albumin/Globulin Ratio 0.3 (1.1-1.8); Anion Gap 11.5 mEq/L (5.0-15.0); Bilirubin Total 0.3 mg/dL (0.2-1.0); Globulin 5.5 g/dL (2.3-3.5); Potassium 3.5 mEq/L (3.5-5.1); Protein, Total 7.3 g/dL (6.4-8.2)
[2024-07-18] MEDS ORDERED: ACETAMINOPHEN 500 MG TAB ONE (16:20)
[2024-07-18] MEDS ORDERED: VANCOMYCIN 1 GM/VIAL ONE (16:20)
[2024-07-18] MEDS ORDERED: NA CHLORIDE 0.9% 250 ML ONE (16:21)
[2024-07-18] MEDS: FLUCONAZOLE 400 MG IVPB 400 MG/200 ML BAG IV ONE (16:30)
[2024-07-18] MEDS ORDERED: ACETAMINOPHEN 325 MG TABLET PO PRN (16:35)
--- NOTE | 2024-07-18 16:54 | P.HP ---
Certification for Inpatient Patient admitted to: Inpatient With expected LOS: >2 Midnights Patient will require the following post-hospital care: None Practitioner: I am a practitioner with admitting privileges, knowledge of patient current condition, hospital course, and medical plan of care. Services: Services provided to patient in accordance with Admission requirements found in Title 42 Section 412.3 of the Code of Federal Regulations Patient History Date of Service: 07/18/24 Reason for admission: Fevers, Possible line infection History of Present Illness: 59-year-old male with history of CAD, ESRD on PD, chronic diastolic congestive heart failure, pulmonary hypertension, atrial fibrillation on chronic anticoagulation, diabetes mellitus type 2, hypertension, hyperlipidemia, hypothyroidism and KEVIN presents to the emergency department with chief complaint of fevers, concern for line infection. Patient and his significant other at bedside report that he has been having low- grade fevers for the last 2 to 3 weeks, Tmax 101 last night otherwise running around 99 degrees. Apparently he had cultures drawn from the peritoneal dialysis catheter which grew yeast and gram-positive bacteria. He was referred to the ER by his civil project engineer to have his PD catheter removed and temporary HD catheter placed. Was evaluated in the emergency department his labs are significant for a white blood cell count of 13.2 hemoglobin of 9.7 sodium 130 potassium 3.5 creatinine 6.9 lactic acid 1.2 vital signs are stable. Chest x-ray is ordered and pending. Patient will be admitted for further evaluation and management. Allergies Bleach (Sodium Hypochlorite) Adverse Reaction (Verified 09/22/23 12:10) Itching/Hives/Rash Home Medications: Allopurinol 100 mg PO DAILY 02/21/23 Furosemide 80 mg PO BID 02/21/23 Gabapentin 100 mg PO TID 02/21/23 Hydralazine [Apresoline*] 50 mg PO TID 02/21/23 Isosorbide Mononitrate [Isosorbide Mononitrate ER] 30 mg PO DAILY 02/21/23 Levothyroxine Sodium 50 mcg PO DAILY 02/21/23 Pravastatin [Pravachol*] 40 mg PO BEDTIME 02/21/23 Apixaban [Eliquis *] 2.5 mg PO BID #60 tab 03/02/23 Glipizide [Glipizide ER] 10 mg PO DAILY 06/28/23 Insulin Aspart [Novolog Flexpen] 20 unit SQ AC 06/28/23 Insulin Glargine,Hum.rec.anlog [Basaglar Kwikpen U-100] 75 unit SQ BEDTIME 06/28/23 Losartan Potassium 25 mg PO DAILY 06/28/23 Aspirin [Aspirin EC] 81 mg PO DAILY #30 tab 10/06/23 Spironolactone [Aldactone*] 25 mg PO DAILY #30 tab 10/06/23 Ticagrelor [Brilinta] 90 mg PO BID #60 tab 10/06/23 carvediloL [Carvedilol] 6.25 mg PO BID #60 tab 10/06/23 - Past Medical/Surgical History Diabetic: Yes -: Hypertensive disorder -: enlarged heart -: peripheral neuropathy -: sleep apnea -: Diabetes mellitus -: ESRD on PD/HD -: Chronic diastolic congestive heart failure -: A-fib -: CAD -: Appendectomy -: knee surgery -: cataracts -: Right elbow surgery/Tennis Elbow -: 2019 Right Leg Surgery - Family History Father -: Heart disease, Diabetes, Blood disorders, Kidney disease Mother -: Heart disease - Social History Alcohol use: No CD- Drugs: No Caffeine use: Yes Place of Residence: Home Review of Systems 10-point ROS is otherwise unremarkable General: Fever, Chills, Weakness, Malaise Physical Examination - Physical Exam General: Alert, In no apparent distress, Oriented x3, Obese HEENT: Atraumatic, PERRLA, EOMI Neck: Supple, 2+ carotid pulse no bruit, No LAD Respiratory: Clear to auscultation bilaterally, Normal air movement Cardiovascular: Regular rate/rhythm, Normal S1 S2 Gastrointestinal: Normal bowel sounds, No tenderness Musculoskeletal: No tenderness Integumentary: No rashes Neurological: Normal gait, Normal speech, Normal strength at 5/5 x4 extr - Studies Laboratory Data (last 24 hrs) 07/18/24 07/18/24 07/18/24 15:40 15:40 15:40 WBC 13.20 H Hgb 9.7 L Hct 28.9 L Plt Count 488 H PT 19.1 H INR 1.83 APTT 39.6 H Sodium 130 L Potassium 3.5 BUN 46 H Creatinine 6.90 H Glucose 154 H Total Bilirubin 0.3 AST 30 ALT 32 Alkaline Phosphatase 115 Assessment and Plan - Plan Assessment: ESRD on PD-concern for possible PD cath infection Atrial fibrillation on chronic anticoagulation Chronic diastolic congestive heart failure CAD with stent 10/26 Diabetes mellitus type 2 Hypertension Hyperlipidemia Hypothyroidism Obstructive sleep apnea Plan: ESRD on PD-concern for possible PD cath infection Reported outpatient peritoneal fluid cultures grew fungus, gram-positive bacteria Started on vancomycin, fluconazole Plan for PD cath removal tomorrow and temporary HD catheter placement N.p.o. after midnight, general surgery and nephrology aware Atrial fibrillation on chronic anticoagulation Chronic diastolic congestive heart failure CAD with stent 10/26 Took his aspirin, Brilinta and Eliquis this morning Discussed with cardiology, will hold his evening dose of Brilinta and Eliquis today Resume triple therapy as soon as possible after surgery Okay with cardiology for short pauses as necessary in anticoagulation Deemed necessary given concern for active line infection Diabetes mellitus type 2 ACHS Accu-Chek, sliding scale insulin Hypertension Hyperlipidemia Hypothyroidism Continue home medications when verified Obstructive sleep apnea CPAP at night DVT PPX: SCD Code status: Full Discharge Plan: Home Plan to discharge in: Greater than 2 days - Advance Directives Does patient have a Living Will: No Does patient have a Durable POA for Healthcare: No - Code Status/Comfort Care Code Status Assessed: Yes (Full code) Critical Care: No Time Spent Managing Pts Care (In Minutes): 75
[2024-07-18] MEDS: VANCOMYCIN 1.5 GM in NA CHLORIDE 0.9% 500 ML IVPB ONE (17:54)
--- NOTE | 2024-07-18 18:28 | RAD REPORT ---
EXAMINATION: ONE VIEW CHEST XR CLINICAL INDICATION: Male, 59 years old.,fevers TECHNIQUE: Frontal chest projection is submitted. Examination is limited by patient positioning and t echnique. COMPARISON: 04/26/2023 FINDINGS: The lungs are grossly clear although suboptimal inspiratory effort somewhat limits evaluation. No pn eumothorax or sizable effusion. The heart is normal in size. Mediastinal contours are unremarkable. IMPRESSION: No acute intrathoracic abnormalities.
[2024-07-18 19:44] VITALS: BMI 46.0
[2024-07-18] MEDS: INSULIN REGULAR (HUMAN) 100 UNIT/ML SQ SCH (20:52)
[2024-07-18] MEDS: HYDRALAZINE HCL 20 MG/ML VIAL IV PRN (21:26)
[2024-07-19 06:18] LABS: Absolute Eosinophils 0.2 K/uL (0-0.5); Absolute Lymphocytes (CBC) 0.7 K/uL (0.7-4.9); Absolute Monocytes 0.5 K/uL (0.1-1.3); Absolute Neutrophil 9.6 K/uL (1.8-8.0); Basophils % 0.4 % (0-1.3); Eosinophils % 1.4 % (0-4.4); Hematocrit 26.3 % (39.6-49.0); Lymphocytes % 6.1 % (15.3-44.8); MCH 30.8 pg (27.0-35.0); MCV 90.5 fL (80-100); MPV 6.3 fL (7.6-11.3); Monocytes % 4.9 % (3.3-12.3); Neutrophils % 87.2 % (41.7-73.7); Nucleated Red Blood Cells % 0.1 % (0-0); Platelets 476 thou/uL (152-406); RBC Red Blood Cell Count 2.91 M/uL (4.33-5.43); Red Cell Distribution Width 14.7 % (12.1-15.2)
[2024-07-19 06:55] LABS: Anion Gap 15.3 mEq/L (5.0-15.0); Magnesium 1.6 mg/dL (1.6-2.4); Phosphorus 4.9 mg/dL (2.5-4.9); Potassium 3.3 mEq/L (3.5-5.1)
[2024-07-19 08:19] LABS: Blood Morphology Comment NOT SEEN (NOT SEEN); Platelet Estimate ADEQ; Platelets Clumped FEW; Toxic Granulation NOTED; White Blood Cell Scan OK (OK)
--- NOTE | 2024-07-19 10:14 | P.PN ---
Date of Service: 07/19/24 Subjective: No acute events overnight Plan for surgery today ROS: 10 point ROS as noted above, otherwise negative Physical exam GEN: Alert, oriented, NAD HEENT: Normal conjunctiva, sclera anicteric CV: Regular rate and rhythm, no edema Pulm: Nonlabored respirations on room air ABD: Soft, nontender, nondistended MSK: No joint tenderness Integumentary: No rashes Neuro: Normal speech, normal affect Vitals reviewed Assessment: ESRD on PD-concern for possible PD cath infection Atrial fibrillation on chronic anticoagulation Chronic diastolic congestive heart failure CAD with stent 10/26 Diabetes mellitus type 2 Hypertension Hyperlipidemia Hypothyroidism Obstructive sleep apnea Plan: ESRD on PD-concern for possible PD cath infection Reported outpatient peritoneal fluid cultures grew fungus, gram-positive bacteria Started on vancomycin, fluconazole Plan for PD cath removal today and temporary HD catheter placement Blood cultures here pending Atrial fibrillation on chronic anticoagulation Chronic diastolic congestive heart failure CAD with stent 10/26 Took his aspirin, Brilinta and Eliquis AM 07/18 Discussed with cardiology, will hold his evening dose of Brilinta and Eliquis today Resume triple therapy as soon as possible after surgery Okay with cardiology for short pauses as necessary in anticoagulation Deemed necessary given concern for active line infection Diabetes mellitus type 2 ACHS Accu-Chek, sliding scale insulin Hypertension Hyperlipidemia Hypothyroidism Continue home medications when verified Obstructive sleep apnea CPAP at night DVT PPX: SCD Code status: Full Discharge Plan: Home Plan to discharge in: Greater than 2 days <Blake De Los Santos - Last Filed: 07/19/24 10:14> Chart has been reviewed. Events of the last 24 hours have been noted. Case discussed with JESE. I performed a substantial part of the MDM during this patient's care today. I personally made or approved the documented management plan and acknowledge its risk of complications. I agree with the findings and documentation provided in the JESE's notes Patient had an infected peritoneal catheter as well as peritoneal signs. Peritoneal dialysis catheter has been removed. A right femoral Bill catheter was placed. Patient has been been dialyzed and he is feeling better. Plan is to do a permanent dialysis access catheter in the right subclavian. Continue with antibiotic therapy. As far as patient's cardiac status we will continue with Brilinta and aspirin and will probably resume Eliquis 24 hours after hemodialysis access catheter is placed. Continue with strict blood pressure blood sugar control. Continue with resuming CPAP at night. Patient clinically doing well and I anticipate discharge around Monday. <Flores Hahn - Last Filed: 07/21/24 00:28>
[2024-07-19] MEDS: NA CHLORIDE 0.9% 500 ML ONE (13:00)
[2024-07-19] MEDS ORDERED: propofoL 200 MG/20 ML VIAL IV ONE (13:39)
[2024-07-19] MEDS ORDERED: FENTANYL CITR 100 MCG/2 ML ONE (13:39)
[2024-07-19] MEDS ORDERED: LIDOCAINE 1% MPF 5 ML VIAL ONE (13:39)
[2024-07-19] MEDS ORDERED: MIDAZOLAM HCL 2 MG/2 ML INJ ONE (13:39)
[2024-07-19] MEDS: NS 0.9% VIAL 0 ML ONE (13:59)
[2024-07-19] MEDS: LIDOCAINE HCL/EPINEPHRINE 20 ML MDV ONE (14:00)
[2024-07-19] MEDS: TRANEXAMIC ACID 1,000 MG/10 ML VIAL IV ONE (14:09)
[2024-07-19] MEDS: CEFAZOLIN SODIUM 1 GM/VIAL ONE ×2 (14:13)
[2024-07-19] MEDS ORDERED: ROCURONIUM 50 MG/5 ML VIAL IV ONE (14:52)
[2024-07-19] MEDS ORDERED: EPHEDRINE SULF 50 MG/ML VIAL ONE (15:30)
[2024-07-19] MEDS: HEPARIN 5000 UNIT/ML 1 ML VIAL ONE (15:42)
[2024-07-19] MEDS: NA CHLORIDE 0.9% 50 ML ONE (15:44)
[2024-07-19] MEDS ORDERED: GLYCOPYRROLATE 0.2 MG/ML SYR ONE (16:06)
[2024-07-19] MEDS ORDERED: NEOSTIGMINE 1 MG/ML -10 ML VIAL ONE (16:06)
--- NOTE | 2024-07-19 16:13 | P.OP ---
Preoperative diagnosis: Infected Peritoneal Dialysis Catheter Postoperative diagnosis: Infected Peritoneal Dialysis Catheter Primary procedure: Laparoscoic removal of peritoneal dialysis catheter Secondary procedure: Placement of RIGHT Femoral Vein Temporary Hemodialysis Catheter Anesthesia: GETA + Local Estimated blood loss: <30cc Specimen: Cath Tip sent for culture from PD Findings: Difficult anatomy for HD cath placement due to body habitus Complications: None Implants: Temporary HD Catheter Transferred to: Recovery Room Condition: Good
--- NOTE | 2024-07-19 16:42 | RAD REPORT ---
Procedure: Chest Single View HISTORY: Status post central venous catheter placement attempt FINDINGS: A pneumothorax is not visualized
[2024-07-19] MEDS: MORPHINE 4 MG/ML SYR ONE (16:50)
[2024-07-19] MEDS: FLUCONAZOLE 200mg IVPB 200 MG/100 ML BAG IV SCH (17:34)
[2024-07-19] MEDS ORDERED: HOME MED 1 EA UNK (Losartan Potassium [Losartan Potassium] 25 MG Tablet) PO SCH (21:00)
[2024-07-19] MEDS ORDERED: ONDANSETRON 4 MG/2 ML VIAL IV PRN (21:18)
[2024-07-19] MEDS: TICAGRELOR 90 MG TABLET PO SCH (21:51)
[2024-07-19] MEDS: GABAPENTIN 100 MG CAP PO SCH (21:51)
[2024-07-19] MEDS: LOSARTAN POTASSIUM 50 MG TABLET PO SCH (21:51)
[2024-07-19] MEDS: FUROSEMIDE 40 MG TABLET PO SCH (21:51)
[2024-07-19] MEDS: ATORVASTATIN 40 MG TAB PO SCH (21:51)
[2024-07-19] MEDS: MORPHINE 2 MG/ML SYR IV PRN (21:52)
[2024-07-19] MEDS: carvediloL 12.5 MG TAB PO SCH (21:52)
--- NOTE | 2024-07-20 01:09 | CON ---
Date of Consultation: 07/18/2024 Chief Complaint: End-stage renal disease, infected PD catheter, fevers, peritonitis. History Of Present Illness: The patient is a 59-year-old man with history of coronary artery disease ; obesity; end-stage renal disease, on PD; chronic diastolic congestive heart failure; pulmonary hype rtension; atrial fibrillation, on chronic anticoagulation; diabetes mellitus type 2; hypertension; hy pertensive heart and kidney disease; hyperlipidemia; hypothyroidism; obstructive sleep apnea. He pre sented to the emergency department with chief complaint of fevers, concern of PD catheter infection a nd peritonitis. He denied abdominal pain, nausea, vomiting. The patient has been having low-grade f jordyn for at least 2-3 weeks. T-max was 101.1. Otherwise, his body temperature was around 99 degree s. Apparently, he had culture drawn from the peritoneal dialysis catheter, which grew yeast and gram -positive bacteria. He was referred to emergency department by his hospital wellness coordinator, Dr. Morin, for P D catheter removal due to yeast infection and gram-positive cocci infection. The patient had workup done in the emergency room and it showed white count of 13.2, hemoglobin 9.7. Sodium 130, potassium 3.5, creatinine level 6.9. Lactic acid 1.2. Past Medical History: Diabetes mellitus; hypertension; hypertensive heart and kidney disease; enlarg ed heart; peripheral neuropathy; sleep apnea; obesity; diabetes mellitus with renal manifestation; e nd-stage renal disease, on hemodialysis previously and recently on peritoneal dialysis; chronic conge stive heart failure with diastolic dysfunction; atrial fibrillation; coronary artery disease; appende ctomy; knee surgery; cataract; right elbow surgery; and right leg surgery. Family History: Father, heart disease, diabetes, blood disorder, kidney disease. Mother, heart dise ase. Social History: Denies alcohol. Denies drugs. Denies caffeine. Review of Systems: Constitutional: Denies syncope. Has low-grade fevers and denied chills. Eyes: Denies vision changes. Ears, Nose, Mouth, and Throat: Denies sore throat, earache. Respiratory: Denies PND, orthopnea Cardiovascular: Denies syncope, palpitation. GI: Denies nausea, vomiting, and hematemesis. All other systems reviewed and all are negative. Physical Examination: General: Alert, oriented x3. Normal affect. Obese. HEENT: Atraumatic, normocephalic. Anicteric sclerae. Respiratory: Clear to auscultation bilaterally. Cardiovascular: S1, S2. Regular rate and rhythm. Abdomen: Normal bowel sounds. No tenderness. Extremities: No edema. No clubbing. No cyanosis. Laboratory Data: WBC 13.2, hemoglobin 9.7, platelet count 188,000. INR 1.83, PT 19.1, PTT 39.6. So dium 130, potassium 3.5, BUN 56, creatinine 6.90, glucose 154. Total bilirubin 0.3, AST , ALT 32, AP 115. Impression And Plan: 1. End-stage renal disease, on peritoneal dialysis. The patient is scheduled to have peritoneal dial ysis catheter removal procedure. Plan is to continue antimicrobial therapy according to culture resu lts. The patient apparently had a culture positive for yeast and he will continue fluconazole. Vanc omycin was positive for gram-positive cocci. Plan is to modify antibiotics according to culture resu lts as needed. 2. Atrial fibrillation, on chronic anticoagulation. Chronic congestive heart failure. Continue low- sodium diet and p.o. fluid restriction. Continue diuretic as needed and start hemodialysis for volum e control and metabolic clearance. The patient will have hemodialysis catheter placement and surgica l consult was formulated. 3. Obstructive sleep apnea, on CPAP. 4. Anemia and chronic kidney disease. Monitor hemoglobin level and resume EDUARDO according to lab resul tsJessica GARCIA/SHY Voice ID: [id number] Report ID: [id number]
--- NOTE | 2024-07-20 02:23 | OP ---
Date of Procedure: 07/19/2024 Surgeon: Jerson Jimenez MD, Preoperative Diagnosis: Infected peritoneal dialysis catheter. Postoperative Diagnosis: Infected peritoneal dialysis catheter. Procedures: 1. Laparoscopic removal of peritoneal dialysis catheter. 2. Placement of right femoral vein temporary hemodialysis catheter. Anesthesia: General endotracheal plus local with 1% lidocaine. Estimated Blood Loss: 30 cc. Specimen: Catheter tip sent for culture from peritoneal dialysis catheter. Findings: Difficult anatomy for hemodialysis catheter placement due to body habitus. Complications: None immediate. Implants: Temporary hemodialysis Mahurkar type straight dialysis catheter placed in the right femora l vein. Disposition: The patient was transferred to recovery room in good condition. Procedure In Detail: After informed consent was obtained, patient was brought to the operating room, prepped and draped in the usual sterile fashion after adequate anesthesia achieved, anesthetized an area of the right internal jugular vein and I used ultrasound guidance to attempt to cannulate this v ein. Cannulation was possible, however, I could not get the wire to maintain its proper positioning and therefore I abandoned this procedure at this point because the wire could not advance easily. Th ere was resistance on the wire despite placement, and as such, I abandoned this portion of procedure. I inspected the area at the end of the procedure with the ultrasound that showed no injury obvious at this time. I then turned my attention to the right inguinal region. I anesthetized the skin. Us ing the same said ultrasound guidance, the vein was found to be quite small, but of adequate size, ho wever, due to body habitus, significant abdominal pannus, and obesity it was a challenging placement, however, I was able to place the catheter using the microintroducer set in the right femoral vein. After placement of the microintroducer set, I advanced a microwire, made a patricia incision overlying th e insertion site, placed a microintroducer sheath. At this point, dark red nonpulsatile blood was re turned. The microwire was removed. The standard wire was advanced at this point and made more gener ous patricia incision at this point, performed sequential dilatation using Seldinger technique, ultimatel y placed in the straight Mahurkar type hemodialysis catheter into the femoral vein without incident o r complication. Dark red nonpulsatile blood returned throughout the procedure. The wire out was nayan led for the second time and all counts were correct at the end of the procedure. At this point, I th en flushed and pulled back dark red nonpulsatile blood from both ports quite easily and flushed them with sterile saline until completely clear. We then packed with heparin at this point. The catheter was then sutured in with a 3-0 nylon suture and a sterile dressing placed over top. I then turned m y attention to the removal of the peritoneal dialysis catheter. I dilated up the exit site and ultim ately found the catheter cuff. I cut down on this from the previous insertion site. I made a cut in cision over the previous incision at the left of midline where the previous incision and cuff site wa s, I cut down to feel the catheter. Ultimately, I freed up the 2 cuffs after dissecting them circumf erentially around using electrocautery and after freeing the cuffs up I ligated this area, pulled the catheter out through the tract. Ultimately, I placed the 5-mm 0-degree optical trocar in the left u pper quadrant. At this point, after appropriately anesthetizing skin and using an optical trocar, I entered the abdomen safely without incident or complication. Insufflation was obtained to 15 mmHg at this time. At this point, I inspected the catheter. It was found to be in the peritoneal cavity in the normal anatomic position without any evidence of adhesions or other anatomic abnormalities with respect to the catheter placement. At this point, I cut the last cuff with counter incision and dire ctly visualized removal of the catheter from the intraperitoneal compartment without any issue. I th en desufflated the abdomen under direct vision without incident or complication. The trocar was riki cosme. All skin incisions were then copiously irrigated at this point and closed with interrupted stap les. At this point, the catheter tip was sent for culture. At this point, I then packed the previou s catheter exit site with iodoform packing after appropriately irrigating the area. All the skin inc isions as described were irrigated copiously. No additional hemostatic required and closed with inte rrupted manoj and then sterile dressing placed over top. The patient tolerated the procedure witho ut incident or complication, transferred to PACU in good condition. All counts were correct at the e nd of the case. TK/MODL Voice ID: [id number] Report ID: [id number]
[2024-07-20] MEDS: LEVOTHYROXINE SOD 0.05 MG TABLET PO SCH (05:42)
[2024-07-20 06:12] LABS: Absolute Eosinophils 0.3 K/uL (0-0.5); Absolute Lymphocytes (CBC) 0.7 K/uL (0.7-4.9); Absolute Monocytes 0.5 K/uL (0.1-1.3); Absolute Neutrophil 9.4 K/uL (1.8-8.0); Basophils % 0.4 % (0-1.3); Eosinophils % 2.5 % (0-4.4); Hematocrit 25.2 % (39.6-49.0); Hemoglobin 8.5 g/dL (13.6-17.9); Lymphocytes % 6.7 % (15.3-44.8); MCHC 33.8 g/dL (32.0-36.0); MCV 91.6 fL (80-100); MPV 6.1 fL (7.6-11.3); Monocytes % 4.8 % (3.3-12.3); Neutrophils % 85.6 % (41.7-73.7); Platelets 478 thou/uL (152-406); RBC Red Blood Cell Count 2.75 M/uL (4.33-5.43); Red Cell Distribution Width 14.3 % (12.1-15.2)
[2024-07-20 06:54] LABS: Anion Gap 13.6 mEq/L (5.0-15.0); Magnesium 1.6 mg/dL (1.6-2.4); Phosphorus 6.6 mg/dL (2.5-4.9); Potassium 3.6 mEq/L (3.5-5.1)
[2024-07-20] MEDS: SPIRONOLACTONE 25 MG TABLET PO SCH (09:00)
[2024-07-20] MEDS: ASPIRIN EC 81 MG TAB PO SCH (09:51)
[2024-07-20] MEDS: allopurinoL 100 MG TAB PO SCH (09:51)
[2024-07-20] MEDS: Oxycodone HCl/Acetaminophen 5/325 MG TAB PO PRN (09:58)
[2024-07-20] MEDS: ISOSORBIDE MONO SR 30 MG TAB PO SCH (12:07)
--- NOTE | 2024-07-20 13:27 | P.PN ---
Date of Service: 07/20/24 Subjective: No acute events overnight Doing well after sx C/O pain to surgical site ROS: 10 point ROS as noted above, otherwise negative Physical exam GEN: Alert, oriented, NAD HEENT: Normal conjunctiva, sclera anicteric CV: Regular rate and rhythm, no edema Pulm: Nonlabored respirations on room air ABD: Soft, nontender, nondistended MSK: No joint tenderness Integumentary: No rashes Neuro: Normal speech, normal affect Vitals reviewed Assessment: ESRD on PD-concern for possible PD cath infection Atrial fibrillation on chronic anticoagulation Chronic diastolic congestive heart failure CAD with stent 10/26 Diabetes mellitus type 2 Hypertension Hyperlipidemia Hypothyroidism Obstructive sleep apnea Plan: ESRD on PD-concern for possible PD cath infection Reported outpatient peritoneal fluid cultures grew fungus, gram-positive bacteria Started on vancomycin, fluconazole PD cath removed and temp HD cath inserted 07/19 Plan for formal HD cath placement Saturday 07/22 Blood cultures here pending 06/08 G+ so far Wheelchair ordered, pt prefers MWF HD in the afternoons when setup outpatient Atrial fibrillation on chronic anticoagulation Chronic diastolic congestive heart failure CAD with stent 10/26 Took his aspirin, Brilinta and Eliquis AM 07/18 Will hold all three on Friday 07/21 in anticipation of surgery 07/22 Resume triple therapy as soon as possible after surgery Okay with cardiology for short pauses as necessary in anticoagulation Deemed necessary given concern for active line infection/need for HD access Diabetes mellitus type 2 ACHS Accu-Chek, sliding scale insulin Hypertension Hyperlipidemia Hypothyroidism Continue home medications when verified Obstructive sleep apnea CPAP at night DVT PPX: SCD Code status: Full Discharge Plan: Home Plan to discharge in: Greater than 2 days <Blake De Los Santos - Last Filed: 07/20/24 13:24> Chart has been reviewed. Events of the last 24 hours have been noted. Case discussed with JESE. I performed a substantial part of the MDM during this patient's care today. I personally made or approved the documented management plan and acknowledge its risk of complications. I agree with the findings and documentation provided in the JESE's notes Patient had an infected peritoneal catheter as well as peritoneal signs. Peritoneal dialysis catheter has been removed. A right femoral Bill catheter was placed. Patient has been been dialyzed and he is feeling better. Plan is to do a permanent dialysis access catheter in the right subclavian. Continue with antibiotic therapy. As far as patient's cardiac status we will continue with Brilinta and aspirin and will probably resume Eliquis 24 hours after hemodialysis access catheter is placed. Continue with strict blood pressure blood sugar control. Continue with resuming CPAP at night. Patient clinically doing well and I anticipate discharge around Monday. <Flores Hahn - Last Filed: 07/21/24 00:29>
[2024-07-20] MEDS: TRAZODONE 50 MG TABLET PO PRN (21:13)
[2024-07-21 04:25] LABS: Hepatitis B Surface Ab - Quant 3.45 mIU/mL (<8.0); Hepatitis B surface AG Interp. Nonreactive (Nonreactive)
[2024-07-21 04:27] LABS: HBsAG Nonreactive Report Report
[2024-07-21 06:23] LABS: Absolute Eosinophils 0.3 K/uL (0-0.5); Absolute Lymphocytes (CBC) 0.8 K/uL (0.7-4.9); Absolute Monocytes 0.6 K/uL (0.1-1.3); Absolute Neutrophil 6.2 K/uL (1.8-8.0); Basophils % 0.6 % (0-1.3); Eosinophils % 3.4 % (0-4.4); Hematocrit 24.9 % (39.6-49.0); Hemoglobin 7.9 g/dL (13.6-17.9); Lymphocytes % 9.9 % (15.3-44.8); MCH 29.4 pg (27.0-35.0); MCHC 31.5 g/dL (32.0-36.0); MCV 93.1 fL (80-100); MPV 6.3 fL (7.6-11.3); Monocytes % 7.2 % (3.3-12.3); Neutrophils % 78.9 % (41.7-73.7); Platelets 430 thou/uL (152-406); RBC Red Blood Cell Count 2.67 M/uL (4.33-5.43); Red Cell Distribution Width 14.6 % (12.1-15.2)
[2024-07-21 06:48] LABS: Anion Gap 12.3 mEq/L (5.0-15.0); Magnesium 1.9 mg/dL (1.6-2.4); Phosphorus 5.5 mg/dL (2.5-4.9); Potassium 3.3 mEq/L (3.5-5.1)
--- NOTE | 2024-07-21 12:35 | P.PN ---
Date of Service: 07/21/24 Subjective: more somnolent, sleepy - family wants to avoid trazodone otherwise doing okay tolerated dialysis yesterday without issues ROS: 10 point ROS as noted above, otherwise negative Physical Exam: GEN: Alert, oriented, NAD CV: Regular rate and rhythm, no edema Pulm: Nonlabored respirations on room air, clear bilaterally ABD: soft, nontender, nondistended Integumentary: No rashes Neuro: Normal speech, normal affect Problem List: ESRD on PD-concern for possible PD cath infection Atrial fibrillation on chronic anticoagulation Chronic diastolic congestive heart failure hx of STEMI / CAD, s/p RCA PCI (10/2023) IDDM2 Hypertension Hyperlipidemia Hypothyroidism Obstructive sleep apnea ESRD on PD-concern for possible PD cath infection Reported outpatient peritoneal fluid cultures grew fungus, gram-positive bacteria continue IV vancomycin and fluconazole (07/19-) Dr. Jimenez consulted for HD cath placement. PD cath removed and temp HD cath inserted (07/19) Plan for formal HD cath placement Monday (07/22) Blood Cx here pending 06/08 G+ so far Wound cx (07/19): 2+ yeast prelim Wheelchair ordered, pt prefers MWF HD in the afternoons when setup outpatient Atrial fibrillation on chronic anticoagulation Chronic diastolic congestive heart failure hx of STEMI / CAD, s/p RCA PCI (10/2023) Took his aspirin, Brilinta and Eliquis AM 07/18 dc brilinta, asa 81mg in preparation for surgery tomorrow. Resume triple therapy post surgery Okay with cardiology for short pauses as necessary in anticoagulation Deemed necessary given concern for active line infection/need for HD access IDDM2 ACHS Accu-Chek, SSI confirm home insulin regimen Hypertension Hyperlipidemia Hypothyroidism Continue home medications as appropriate Obstructive sleep apnea CPAP at night VTE: on hold in prep for tentative surgery tomorrow Code: Full Dispo: home pending surgery, nephro recs Time Spent Managing Pts Care (In Minutes): 55
[2024-07-21] MEDS: MELATONIN 5 MG TABLET PO PRN (21:19)
--- NOTE | 2024-07-21 21:20 | PN ---
Date of Progress Note: 07/21/2024 Chief Complaint: End-stage renal disease, infected PD catheter, fevers, peritonitis. Subjective: The patient is a 59-year-old man with history of coronary artery disease; obesity; end-s tage renal disease, on PD dialysis; chronic diastolic congestive heart failure; pulmonary hypertensio n; atrial fibrillation, on chronic anticoagulation; diabetes mellitus; hypertension; hypertensive hea rt and kidney disease; end-stage renal disease; hyperlipidemia; hypothyroidism; sleep apnea. The pat jason presented to Emergency Department with chief complaint of fevers, concern of PD catheter infecti on, and peritonitis. T-max was 101.1. The patient had procedure , and PD catheter was rem sheila. The patient is currently on hemodialysis and he had hemodialysis yesterday. Review of Systems: Denies chest pain, palpitation. Physical Examination: Lungs: Clear to auscultation bilaterally. Heart: S1, S2. Abdomen: Soft, benign. Extremities: No edema. Impression And Plan: 1. End-stage renal disease, on peritoneal dialysis. The patient had peritoneal dialysis catheter rem oval procedure. The patient will continue hemodialysis. Next hemodialysis tomorrow. 2. Apparently peritoneal dialysis fluid from outpatient showed results positive for yeast. The patie nt will continue antimicrobial therapy, including fluconazole. Vancomycin was started for gram-posit eddie cocci. 3. Obstructive sleep apnea, on CPAP. 4. Renal osteodystrophy. Monitor phosphorus level. 5. Anemia due to chronic kidney disease. Monitor hemoglobin level. 6. Congestive heart failure, diastolic dysfunction. The patient is euvolemic. Continue dialysis with ultrafiltration. Low-sodium diet and p.o. fluid restriction. EB/MODL Voice ID: [id number] Report ID: [id number]
[2024-07-22 06:39] LABS: Absolute Basophils 0.1 K/uL (0-0.5); Absolute Eosinophils 0.3 K/uL (0-0.5); Absolute Lymphocytes (CBC) 0.8 K/uL (0.7-4.9); Absolute Monocytes 0.5 K/uL (0.1-1.3); Basophils % 0.8 % (0-1.3); Eosinophils % 4.2 % (0-4.4); Hematocrit 21.4 % (39.6-49.0); Hemoglobin 7.2 g/dL (13.6-17.9); Lymphocytes % 10.6 % (15.3-44.8); MCH 30.4 pg (27.0-35.0); MCHC 33.5 g/dL (32.0-36.0); MCV 90.7 fL (80-100); MPV 6.6 fL (7.6-11.3); Neutrophils % 78.4 % (41.7-73.7); Nucleated Red Blood Cells % 0.1 % (0-0); Platelets 422 thou/uL (152-406); RBC Red Blood Cell Count 2.36 M/uL (4.33-5.43); Red Cell Distribution Width 14.7 % (12.1-15.2)
[2024-07-22 06:53] LABS: Anion Gap 13.4 mEq/L (5.0-15.0); Phosphorus 6.5 mg/dL (2.5-4.9); Potassium 3.4 mEq/L (3.5-5.1)
--- NOTE | 2024-07-22 12:24 | P.PN ---
Date of Service: 07/22/24 Subjective: doing okay no acute events afebrile tentative perm HD cath placement later today ROS: 10 point ROS as noted above, otherwise negative Physical Exam: GEN: Alert, oriented, NAD CV: Regular rate and rhythm, no edema Pulm: Nonlabored respirations on room air, clear bilaterally ABD: soft, nontender, nondistended Integumentary: No rashes Neuro: Normal speech, normal affect Problem List: ESRD on PD-concern for possible PD cath infection Atrial fibrillation on chronic anticoagulation Chronic diastolic congestive heart failure hx of STEMI / CAD, s/p RCA PCI (10/2023) anemia, unclear etiology IDDM2 Hypertension Hyperlipidemia Hypothyroidism Obstructive sleep apnea ESRD on PD-concern for possible PD cath infection Reported outpatient peritoneal fluid cultures grew fungus, gram-positive bacteria continue IV vancomycin and fluconazole (07/19-) Dr. Jimenez consulted for HD cath placement. PD cath removed and temp HD cath inserted (07/19) NPO for formal HD cath placement today (07/22) Blood Cx here pending 06/08 G+ so far Wound cx (07/19): 2+ yeast prelim Wheelchair ordered, pt prefers MWF HD in the afternoons when setup outpatient Atrial fibrillation on chronic anticoagulation Chronic diastolic congestive heart failure hx of STEMI / CAD, s/p RCA PCI (10/2023) Took his aspirin, Brilinta and Eliquis AM 07/18 dc brilinta, asa 81mg held since yesterday in prep for surgery Resume triple therapy post surgery Okay with cardiology for short pauses as necessary in anticoagulation anemia, unclear etiology hx of iron deficiency anemia in Feb 2023 (iron 20, tsat% 9%) no obvious bleeds. No black tarry stools hgb 7.9 -> 7.2. Monitor H&H. May need transfusion IDDM2 ACHS Accu-Chek, SSI confirm home insulin regimen Hypertension Hyperlipidemia Hypothyroidism Continue home medications as appropriate Obstructive sleep apnea CPAP at night VTE: on hold in prep for tentative surgery Code: Full Dispo: home pending surgery, nephro recs, hgb stable Time Spent Managing Pts Care (In Minutes): 55
[2024-07-22] MEDS: NA CHLORIDE 0.9% 500 ML ONE (12:42)
[2024-07-22] MEDS ORDERED: ONDANSETRON 4 MG/2 ML VIAL ONE (13:26)
[2024-07-22] MEDS ORDERED: propofoL 200 MG/20 ML VIAL IV ONE (13:26)
[2024-07-22] MEDS ORDERED: LIDOCAINE 2% MPF 5 ML VIAL ONE (13:26)
[2024-07-22] MEDS ORDERED: FENTANYL CITR 100 MCG/2 ML ONE (13:27)
[2024-07-22] MEDS ORDERED: MIDAZOLAM HCL 2 MG/2 ML INJ ONE (13:27)
[2024-07-22] MEDS ORDERED: ROCURONIUM 50 MG/5 ML VIAL IV ONE (13:44)
[2024-07-22] MEDS ORDERED: EPHEDRINE SULF 50 MG/ML VIAL ONE (13:44)
[2024-07-22] MEDS: NS 0.9% VIAL 10 ML ONE (13:45)
[2024-07-22] MEDS: SUCCINYLCHOLINE 20 MG/ML (10 ML) IV ONE (13:49)
[2024-07-22] MEDS: CEFAZOLIN SODIUM 2 GM/VIAL ONE (14:05)
[2024-07-22] MEDS ORDERED: Phenylephrine HCl 10 MG/ML 1 ML VIAL ONE (14:30)
[2024-07-22] MEDS: LIDOCAINE HCL/EPINEPHRINE 20 ML MDV ONE (14:30)
[2024-07-22] MEDS: HEPARIN 5000 UNIT/ML 1 ML VIAL ONE (14:35)
[2024-07-22] MEDS: NA CHLORIDE 0.9% 50 ML ONE (14:48)
--- NOTE | 2024-07-22 14:54 | P.OP ---
Preoperative diagnosis: Need for Dialysis Postoperative diagnosis: Need for Dialysis Primary procedure: Placement of RIGHT Internal Jugular Tunneled Hemodialysis Catheter Secondary procedure: Ultrasound and Flouroscopy used Anesthesia: GETA + Local Estimated blood loss: <10cc Specimen: None Findings: Flouroscopy and Ultrasound confirmed position Complications: None Implants: 24 cm Hemosplit Hemodialysis Catheter Transferred to: Recovery Room () Condition: Good
--- NOTE | 2024-07-22 15:03 | RAD REPORT ---
Exam: Fluoroscopy less than one hour Clinical history hemodialysis catheter placement. FINDINGS: Central venous catheter advanced into the superior vena cava. Procedure performed by Dr. Chan motta. 10 fluoroscopic spot images obtained. Fluoroscopy time 0.2 minutes
--- NOTE | 2024-07-22 15:53 | RAD REPORT ---
Procedure: Chest Single View HISTORY: Hemodialysis catheter placement FINDINGS: The tip of a central venous catheter lies in the SVC. No pneumothorax.
[2024-07-22] MEDS: VANCOMYCIN 1 GM in NA CHLORIDE 0.9% 250 ML IVPB SCH (16:05)
--- NOTE | 2024-07-22 19:45 | OP ---
Date of Procedure: 07/22/2024 Surgeon: Jerson Jimenez MD, Preoperative Diagnosis: Need for dialysis. Postoperative Diagnosis: Need for dialysis. Procedure: Placement of right internal jugular tunnel hemodialysis catheter using ultrasound fluoros copic guidance. Anesthesia: General endotracheal plus local with 1% lidocaine with epinephrine. Estimated Blood Loss: Less than 10 cc. Specimen: None. Findings: Fluoroscopy and ultrasound confirmed position of the catheter at the confluence of the sup erior vena cava. Complications: None. Implants: 24 cm HemoSplit hemodialysis catheter. Disposition: The patient was transferred to recovery room in good condition. Procedure In Detail: After informed consent was obtained, the patient was brought to the operating r oom, prepped and draped in usual sterile fashion. After adequate anesthesia was achieved, patient wa s placed in steep Trendelenburg position. At this point, using ultrasound guidance, I cannulated the right internal jugular vein using microintroducer needle and I advanced a micro wire, at this point, confirming its position at the confluence of the SVC using fluoroscopy. At this point, I made a sma ll patricia incision overlying the insertion site, placed the introducer sheath into the jugular vein usi ng Seldinger technique. I removed the micro wire. Advanced the standard wire, at this point. Fluor oscopy confirmed the position once again at the confluence to the SVC into the right atrium. At this point, I found a tunneling tract on the chest wall at the infraclavicular position and excised this and then in the entire tract, made a small patricia incision in the tunnel device coming up over the tracy ar bone ultimately coming out through the insertion site. At this point, the catheter was checked fo r position. I then performed sequential dilatation using Seldinger technique while the patient remai scott in steep Trendelenburg position throughout the procedure ultimately placing the catheter introduc er sheath, at this point and placed catheter under fluoroscopic guidance without incident or complica tion, removing the introducer sheaths as I went under fluoroscopic guidance. At this point, the cath eter was flushed and pulled back dark red nonpulsatile blood and the position was confirmed on fluoro scopic guidance once again. At this point, I flushed the catheter port until clear with sterile sali ne and then packed each with heparin super flush, at this point, with 2 cc per port. Catheter was th en placed and the patient was placed in Trendelenburg position, at this point. All skin sites were t hen copiously irrigated and closed with interrupted 3-0 nylon sutures and sterile dressing placed ove r top. The patient tolerated the procedure without incident or complication, transferred to PACU in good condition. All counts were correct at the end of the case. MELANIE/SHY Voice ID: [id number] Report ID: [id number]
--- NOTE | 2024-07-22 23:41 | PN ---
Date of Progress Note: 07/22/2024 Chief Complaint: End-stage renal disease, infected PD catheter, fevers, PD-related peritonitis. Subjective: The patient is a 59-year-old man with history of coronary artery disease; obesity; end-s tage renal disease, on PD dialysis; chronic diastolic congestive heart failure; pulmonary hypertensio n; atrial fibrillation, on chronic anticoagulation; diabetes mellitus; hypertension; hypertensive hea rt and kidney disease; hyperlipidemia; end-stage renal disease, on PD dialysis. Although due to PD-r elated peritonitis, the patient was switched to hemodialysis. During this admission, he underwent PD catheter removal and tunneled dialysis catheter placement. Review of Systems: Denies chest pain, palpitations. Physical Examination: Lungs: Clear to auscultation bilaterally. Heart: S1, S2. Abdomen: Soft, benign. Extremities: No edema. Impression And Plan: 1. End-stage renal disease, on peritoneal dialysis. Peritoneal dialysis was terminated due to perito winston dialysis related peritonitis, and peritoneal dialysis catheter was removed. Continue antibiotic s. Continue antimicrobial medication according to culture. The patient was started on vancomycin fo r gram-positive cocci as well as he is taking fluconazole for antifungal coverage. 2. Obstructive sleep apnea, on CPAP. 3. Renal osteodystrophy. Monitor phosphorus level. Continue binders. 4. Anemia due to chronic kidney disease. Monitor hemoglobin level. Continue EDUARDO according to lab re sults. 5. Congestive heart failure, diastolic dysfunction. The patient is euvolemic. Next dialysis tomorrow. Continue ultrafiltration with hemodialysis. Continue low-sodium diet. P.o. fluid restriction. EB/MODL Voice ID: [id number] Report ID: [id number]
[2024-07-23 07:19] LABS: Absolute Eosinophils 0.4 K/uL (0-0.5); Absolute Lymphocytes (CBC) 0.8 K/uL (0.7-4.9); Absolute Monocytes 0.4 K/uL (0.1-1.3); Absolute Neutrophil 6.3 K/uL (1.8-8.0); Basophils % 0.4 % (0-1.3); Eosinophils % 4.7 % (0-4.4); Hemoglobin 8.1 g/dL (13.6-17.9); MCH 29.8 pg (27.0-35.0); MCHC 32.5 g/dL (32.0-36.0); MCV 91.8 fL (80-100); MPV 6.3 fL (7.6-11.3); Monocytes % 5.3 % (3.3-12.3); Neutrophils % 79.6 % (41.7-73.7); Nucleated Red Blood Cells % 0.2 % (0-0); Platelets 562 thou/uL (152-406); RBC Red Blood Cell Count 2.73 M/uL (4.33-5.43); Red Cell Distribution Width 14.7 % (12.1-15.2)
[2024-07-23 07:47] LABS: AST/SGOT 21 U/L (15-37); Albumin 1.7 g/dL (3.4-5.0); Albumin/Globulin Ratio 0.3 (1.1-1.8); Alkaline Phosphatase 109 U/L (45-117); Anion Gap 14.6 mEq/L (5.0-15.0); BUN Blood Urea Nitrogen 52 mg/dL (7-18); Bicarbonate 24 mEq/L (21-32); Bilirubin Total 0.3 mg/dL (0.2-1.0); Globulin 5.3 g/dL (2.3-3.5); Glomerular Filtration Rate 8 ml/min (=/>90); Glucose Level 262 mg/dL (74-106); Phosphorus 7.5 mg/dL (2.5-4.9); Potassium 3.6 mEq/L (3.5-5.1); Sodium Level 130 mEq/L (136-145)
[2024-07-23 07:50] LABS: ALT/SGPT < 14 U/L (16-61)
[2024-07-23] MEDS: FOLIC ACID 1 MG TABLET PO SCH (08:12)
[2024-07-23] MEDS: EPOETIN ALFA 10,000 UNIT/ML VIAL IV SCH (10:43)
[2024-07-23] MEDS: ASPIRIN EC 81 MG TAB PO SCH (11:17)
[2024-07-23] MEDS: TICAGRELOR 90 MG TABLET PO SCH (11:18)
--- NOTE | 2024-07-23 14:10 | CON ---
History Of Present Illness: The patient lying in bed. No new acute event. The patient is seen for new consult for peritonitis and bacteremia secondary to Staphylococcus hominis. The patient has sign ificant past medical history of end-stage renal disease, coronary artery disease, peritoneal dialysis , chronic diastolic congestive heart failure, pulmonary hypertension, atrial fibrillation, chronic an ticoagulation, diabetes mellitus type 2, hypertension, hyperlipidemia, hypothyroidism, osteoarthritis , coming in with fevers and concern of peritoneal dialysis catheter infection. The patient is gettin g hemodialysis at the time of history and examination. As the patient was somnolent, most of the his tory was obtained through medical records. The patient denies any chest pain, abdominal pain, consti pation, or diarrhea. Past Medical History: As per HPI. Social History: Nonsmoker, nondrinker. Family History: Noncontributory. Medications: Diflucan, vancomycin. See MAR for other medications. Allergies: BLEACH. Review of Systems: A 10-point review was performed. Physical Examination: General: This is a 59-year-old male, lying in bed, not in any acute cardiopulmonary distress. Vital Signs: Temperature 97.8, pulse 79, respirations 18, blood pressure 144/68. HEENT: Unremarkable. Neck: Supple. Lungs: Basal crackles. Heart: S1, S2. Regular. Abdomen: Soft, nontender. Bowel sounds present. Extremities: Trace edema. Laboratory Data: Shows WBC 7.9, down from 13,000; hemoglobin 8.1; platelets 562. Chemistry shows BU N of 52, creatinine 7.4. Albumin level is 1.7. Blood culture results are growing Staphylococcus lisa inis preliminary test. Assessment And Plan: 1. A 59-year-old male with multiple medical problems including end-stage renal disease, diabetes saeid itus, coming in with fevers and peritoneal dialysis catheter infection. Blood cultures showing Staph ylococcus hominis. I agree with continuing vancomycin. Consider adding meropenem to the treatment a t this point, as the patient has peritoneal dialysis catheter site infection. Add meropenem or cefaz tonia. Continue supportive care. Monitor signs of infection. 2. Anemia of chronic disease. 3. Leukocytosis, improved. 4. End-stage renal disease. 5. Bacteremia secondary to Staphylococcus hominis, currently on vancomycin. We will follow the patient closely. Thank you for consult. NF/MODL Voice ID: [id number] Report ID: [id number]
--- NOTE | 2024-07-23 18:36 | P.PN ---
Subjective Date of Service: 07/23/24 Chief Complaint: Fevers, Possible line infection No major changes from yesterday. Patient has no new complaint. Physical Examination - Vital Signs Temperature: 98.2 F Blood Pressure: 120/61 Pulse: 78 Respirations: 18 Pulse Ox (%): 98 - Studies Microbiology Data (last 24 hrs): 07/18/24 16:03 Blood - Blood Blood Culture Gram Stain - Final 07/18/24 16:03 Blood - Blood Anaerobic Blood Culture - Final No growth in 5 days. 07/18/24 15:40 Blood - Blood Aerobic Blood Culture - Final No growth in 5 days. 07/18/24 15:40 Blood - Blood Anaerobic Blood Culture - Final No growth in 5 days. Assessment And Plan - Plan Physical Exam: GEN: Alert, oriented, NAD CV: Regular rate and rhythm, no edema Pulm: Nonlabored respirations on room air, clear bilaterally ABD: soft, nontender, nondistended Integumentary: No rashes Neuro: Normal speech, normal affect Problem List: ESRD on PD-concern for possible PD cath infection Atrial fibrillation on chronic anticoagulation Chronic diastolic congestive heart failure hx of STEMI / CAD, s/p RCA PCI (10/2023) anemia, unclear etiology IDDM2 Hypertension Hyperlipidemia Hypothyroidism Obstructive sleep apnea ESRD on PD-concern for possible PD cath infection Reported outpatient peritoneal fluid cultures grew fungus, gram-positive b acteria continue IV vancomycin and fluconazole (07/19-) Dr. Jimenez consulted for HD cath placement. PD cath removed and temp HD cath inserted (07/19) NPO for formal HD cath placement today (07/22) Blood Cx here pending / G+ so far Wound cx (07/19): 2+ yeast prelim Wheelchair ordered, pt prefers MWF HD in the afternoons when setup outpatient Atrial fibrillation on chronic anticoagulation Chronic diastolic congestive heart failure hx of STEMI / CAD, s/p RCA PCI (10/2023) Took his aspirin, Brilinta and Eliquis AM 07/18 dc brilinta, asa 81mg held since yesterday in prep for surgery Resume triple therapy post surgery Okay with cardiology for short pauses as necessary in anticoagulation anemia, unclear etiology hx of iron deficiency anemia in Feb 2023 (iron 20, tsat% 9%) no obvious bleeds. No black tarry stools hgb 7.9 -> 7.2. Monitor H&H. May need transfusion IDDM2 ACHS Accu-Chek, SSI confirm home insulin regimen Hypertension Hyperlipidemia Hypothyroidism Continue home medications as appropriate Obstructive sleep apnea CPAP at night 07/23 Status post hemodialysis catheter placement. Patient underwent hemodialysis today. DAPT and Eliquis resumed. Hemoglobin appears to be stable Monitor H&H and transfuse as needed. Culture from PD catheter stoma grew yeast. Continue fluconazole VTE: Eliquis. Code: Full Dispo: home
[2024-07-23] MEDS: APIXABAN 2.5 MG TABLET PO SCH (21:24)
[2024-07-23] MEDS: INSULIN GLARGINE 100 UNIT/ML SQ SCH (21:27)
--- NOTE | 2024-07-24 02:01 | PN ---
Date of Progress Note: 07/23/2024 Chief Complaint: End-stage renal disease, infected PD catheter, fevers, PD-related peritonitis. History Of Present Illness: The patient is a 59-year-old man with history of end-stage renal disease , on PD dialysis, obesity, obstructive sleep apnea, on CPAP, chronic diastolic congestive heart failu re, pulmonary hypertension, atrial fibrillation, on chronic anticoagulation, diabetes mellitus, hyper tensive heart and kidney disease diabetic kidney disease. The patient is admitted to the hospital an d the PD catheter was removed. The patient is on antimicrobial therapy for PD-related peritonitis. He was switched to hemodialysis. Review of Systems: Denies chest pain, palpitation. Physical Examination: Lungs: Clear to auscultation bilaterally. Heart: S1,S2. Abdomen: Soft benign, nontender. Extremities: No edema. Impression And Plan: 1. End-stage renal disease, on peritoneal dialysis. Peritoneal dialysis was terminated due to perito winston dialysis-related peritonitis. Peritoneal dialysis catheter was removed. Continue on antibiotic s. Continue antimicrobial medication. According to culture, the patient was started on vancomycin f or gram-positive cocci as well as he is on fluconazole for antifungal coverage. 2. Obstructive sleep apnea, on CPAP. 3. Renal osteodystrophy. Monitor phosphorus level. Continue binders. 4. Anemia due to chronic kidney disease. Continue EDUARDO. Monitor hemoglobin level. 5. Congestive heart failure, diastolic dysfunction. The patient is euvolemic. The patient will cont inue dialysis 3 times per week. Continue p.o. fluid restriction, low-sodium diet, and advance ultrafiltration with dialysis according to volemic status. EB/MODL Voice ID: [id number] Report ID: [id number]
[2024-07-24 06:12] LABS: Absolute Eosinophils 0.4 K/uL (0-0.5); Absolute Lymphocytes (CBC) 0.8 K/uL (0.7-4.9); Absolute Monocytes 0.4 K/uL (0.1-1.3); Absolute Neutrophil 5.5 K/uL (1.8-8.0); Basophils % 0.7 % (0-1.3); Hematocrit 23.7 % (39.6-49.0); Hemoglobin 7.8 g/dL (13.6-17.9); Lymphocytes % 11.1 % (15.3-44.8); MCH 30.2 pg (27.0-35.0); MCHC 32.8 g/dL (32.0-36.0); MCV 92.3 fL (80-100); MPV 6.2 fL (7.6-11.3); Neutrophils % 77.2 % (41.7-73.7); Nucleated Red Blood Cells % 0.1 % (0-0); Platelets 504 thou/uL (152-406); RBC Red Blood Cell Count 2.57 M/uL (4.33-5.43); Red Cell Distribution Width 15.1 % (12.1-15.2)
[2024-07-24 06:29] LABS: Anion Gap 11.9 mEq/L (5.0-15.0); Phosphorus 6.2 mg/dL (2.5-4.9); Potassium 3.9 mEq/L (3.5-5.1)
[2024-07-24] MEDS ORDERED: HOME MED 1 EA UNK (Insulin Aspart [Novolog Flexpen] 100 UNIT/ML Insuln.Pen) SQ SCH (07:30)
[2024-07-24] MEDS: INSULIN LISPRO 100 UNIT/1 ML SQ SCH (08:55)
[2024-07-24] MEDS ORDERED: EPOETIN ALFA 10,000 UNIT/ML VIAL IV SCH (12:15)
--- NOTE | 2024-07-24 13:04 | PN ---
Subjective: No new acute overnight. Objective: Vital Signs: Temperature 97, pulse 75, respirations 18, blood pressure 111/59. Lungs: Basal crackles. Heart: S1, S2. Regular. Abdomen: Soft, nontender, obese. Extremities: Trace edema. Laboratory Data: Shows WBC 7.1, hemoglobin 7.8, platelets 504, BUN of 38, creatinine 5.8. Assessment And Plan: Blood culture positive for Staph hominis, most likely contaminant. Recommend t o start patient on Zosyn 3.375 g every 12 hours to cover possible peritonitis. The patient remained afebrile. Leukocytosis has improved. Anemia of chronic disease. End-stage renal disease. Continue supportive care and we will follow the patient as needed. NF/MODL Voice ID: [id number] Report ID: [id number]
[2024-07-24] MEDS: CALCITROL 0.25 MCG CAP PO SCH (13:43)
--- NOTE | 2024-07-24 16:10 | PN ---
Date of Progress Note: 07/24/2024 Subjective: The patient was admitted to the hospital with peritonitis secondary to fungus. The patient was started on antibiotic. The patient's PD catheter was removed. Objective: Vital Signs: Blood pressure 111/59, pulse of 75, afebrile. Chest: Clear to auscultation. Heart: S1, S2. Regular. Abdomen: Soft, nontender. Extremities: Trace edema. Neurologic: Alert. No focality. Laboratory Data: For the patient, hemoglobin 7.8, sodium 131, potassium 3.9, bicarb 26, BUN 38, creatinine 5.8, calcium 8, phosphorus 6.2, magnesium 2. Current Medications: The patient on include: 1. Aspirin. 2. Atorvastatin. 3. Carvedilol. 4. Hydralazine. 5. Isosorbide. 6. Losartan. 7. Folic acid. 8. Allopurinol. Assessment And Plan: 1. End-stage renal disease, status post peritonitis. I am going to go ahead and continue dialysis. We will arrange for dialysis tomorrow. 2. Hypertension. Resume Lasix. 3. Overvolume. We will resume Lasix. 4. Anemia of chronic kidney disease. Resume EDUARDO. 5. Secondary hyperparathyroidism. Resume calcitriol. 6. Peritonitis, status post removal of PD catheter, and placement of TDC. We will follow up. The patient awaiting for outpatient setup for the dialysis. We will follow up. Time spent examining the patient [id number] reviewing data lab and an audiology placing order discussing the case with the patient discussing the case with the steamer operator including hospitalist and nursing staff more than 55-minute KATHERINE Voice ID: [id number] Report ID: [id number] MTDMary Anne
[2024-07-24 16:15] LABS: Hepatitis B Core Ab, Total Nonreactive (Nonreactive); Hepatitis B Core IgM Nonreactive (Nonreactive); Hepatitis C Virus Ab Nonreactive (Nonreactive)
[2024-07-24] MEDS: FUROSEMIDE 40 MG/4 ML VIAL IV SCH (16:32)
--- NOTE | 2024-07-24 17:25 | P.PN ---
Subjective Date of Service: 07/24/24 Chief Complaint: Fevers, Possible line infection Patient has no new complaint. Status post successful hemodialysis yesterday. He denies shortness of breath and he is eager to go home. Physical Examination - Vital Signs Temperature: 98.1 F Blood Pressure: 126/57 Pulse: 70 Respirations: 16 Pulse Ox (%): 97 - Studies Microbiology Data (last 24 hrs): 07/18/24 16:03 Blood - Blood Aerobic Blood Culture - Final Staph Hominis 07/18/24 16:03 Blood - Blood Blood Culture Gram Stain - Final 07/18/24 16:03 Blood - Blood Anaerobic Blood Culture - Final No growth in 5 days. 07/18/24 15:40 Blood - Blood Aerobic Blood Culture - Final No growth in 5 days. 07/18/24 15:40 Blood - Blood Anaerobic Blood Culture - Final No growth in 5 days. Assessment And Plan - Plan Physical Exam: GEN: Alert, oriented, NAD CV: Regular rate and rhythm, no edema Pulm: Nonlabored respirations on room air, clear bilaterally ABD: soft, nontender, nondistended Integumentary: No rashes Neuro: Normal speech, normal affect Problem List: ESRD on PD-concern for possible PD cath infection Atrial fibrillation on chronic anticoagulation Chronic diastolic congestive heart failure hx of STEMI / CAD, s/p RCA PCI (10/2023) anemia, unclear etiology IDDM2 Hypertension Hyperlipidemia Hypothyroidism Obstructive sleep apnea ESRD on PD-concern for possible PD cath infection Reported outpatient peritoneal fluid cultures grew fungus, gram-positive bacteria continue IV vancomycin and fluconazole (07/19-) Dr. Jimenez consulted for HD cath placement. PD cath removed and temp HD cath inserted (07/19) NPO for formal HD cath placement today (07/22) Blood Cx here pending 06/08 G+ so far Wound cx (07/19): 2+ yeast prelim Wheelchair ordered, pt prefers MWF HD in the afternoons when setup outpatient Atrial fibrillation on chronic anticoagulation Chronic diastolic congestive heart failure hx of STEMI / CAD, s/p RCA PCI (10/2023) Took his aspirin, Brilinta and Eliquis AM 07/18 dc brilinta, asa 81mg held since yesterday in prep for surgery Resume triple therapy post surgery Okay with cardiology for short pauses as necessary in anticoagulation anemia, unclear etiology hx of iron deficiency anemia in Feb 2023 (iron 20, tsat% 9%) no obvious bleeds. No black tarry stools hgb 7.9 -> 7.2. Monitor H&H. May need transfusion IDDM2 ACHS Accu-Chek, SSI confirm home insulin regimen Hypertension Hyperlipidemia Hypothyroidism Continue home medications as appropriate Obstructive sleep apnea CPAP at night 07/23 Status post hemodialysis catheter placement. Patient underwent hemodialysis today. DAPT and Eliquis resumed. Hemoglobin appears to be stable Monitor H&H and transfuse as needed. Culture from PD catheter stoma grew yeast. Continue fluconazole. 07/24 Patient successfully underwent hemodialysis yesterday. Currently stable Hemoglobin has been stable Dr. Jimenez is planning to remove temporary femoral dialysis catheter tomorrow a nd he recommend holding Eliquis, Brilinta and aspirin to reduce bleeding incidence. human services program specialist following for and arranging for outpatient hemodialysis. Continue fluconazole for yeast isolated from the PD catheter stoma. 1 out of 4 blood culture bottle grew Staph hominis which is likely a skin contaminant. Vancomycin discontinued. Infectious disease following and started patient on IV Zosyn to cover any peritonitis. Will transition to oral Cipro and Flagyl on discharge. VTE: Eliquis. Code: Full Dispo: home
[2024-07-24] MEDS ORDERED: VANCOMYCIN 1 GM in NA CHLORIDE 0.9% 250 ML IVPB SCH (18:00)
[2024-07-24] MEDS: PIPER TAZO 3.375 GM in NA CHLORIDE 0.9% 100 ML IV SCH (21:16)
[2024-07-25 06:35] LABS: Absolute Basophils 0.1 K/uL (0-0.5); Absolute Eosinophils 0.4 K/uL (0-0.5); Absolute Lymphocytes (CBC) 1.2 K/uL (0.7-4.9); Absolute Monocytes 0.5 K/uL (0.1-1.3); Absolute Neutrophil 6.3 K/uL (1.8-8.0); Basophils % 0.8 % (0-1.3); Hematocrit 24.5 % (39.6-49.0); Hemoglobin 8.1 g/dL (13.6-17.9); Lymphocytes % 13.8 % (15.3-44.8); MCH 30.2 pg (27.0-35.0); MCV 91.4 fL (80-100); MPV 6.2 fL (7.6-11.3); Monocytes % 5.5 % (3.3-12.3); Neutrophils % 74.9 % (41.7-73.7); Nucleated Red Blood Cells % 0.3 % (0-0); Platelets 548 thou/uL (152-406); RBC Red Blood Cell Count 2.68 M/uL (4.33-5.43)
[2024-07-25 06:50] LABS: Anion Gap 11.4 mEq/L (5.0-15.0); Potassium 3.4 mEq/L (3.5-5.1)
[2024-07-25] MEDS: FUROSEMIDE 40 MG/4 ML VIAL IV ONE (09:08)
[2024-07-25] MEDS: EPOETIN ALFA 10,000 UNIT/ML VIAL IV SCH (12:27)
--- NOTE | 2024-07-25 14:11 | P.DS ---
Admission Date: 07/18/24 Discharge Date: 07/25/24 Disposition: ROUTINE DISCHARGE Discharge Condition: GOOD Reason for Admission: Fevers, Possible line infection Brief History of Present Illness: 59-year-old male with history of CAD, ESRD on PD, chronic diastolic congestive heart failure, pulmonary hypertension, atrial fibrillation on chronic anticoagulation, diabetes mellitus type 2, hypertension, hyperlipidemia, hypothyroidism and KEVIN presented to the emergency department with chief complaint of fevers, concern for line infection. Patient and his significant other at bedside report that he was having low-grade fevers for 2 to 3 weeks. Apparently he had cultures drawn from the peritoneal dialysis catheter which grew yeast and gram-positive bacteria. He was referred to the ER by his peanut sheller to have his PD catheter removed and temporary HD catheter placed. Was evaluated in the emergency department his labs are significant for a white blood cell count of 13.2 hemoglobin of 9.7 sodium 130 potassium 3.5 creatinine 6.9 lactic acid 1.2 vital signs are stable. Patient was admitted for further evaluation and management. Hospital Course: Problem List: ESRD on PD-concern for possible PD cath infection Atrial fibrillation on chronic anticoagulation Chronic diastolic congestive heart failure hx of STEMI / CAD, s/p RCA PCI (10/2023) anemia, unclear etiology IDDM2 Hypertension Hyperlipidemia Hypothyroidism Obstructive sleep apnea Patient admitted to the medical floor and the following medical problems addressed: ESRD on PD-concern for possible PD cath infection Reported outpatient peritoneal fluid cultures grew fungus, gram-positive bacteria continue IV vancomycin and fluconazole (07/19-) Dr. Jimenez consulted for HD cath placement. PD cath removed and temp HD cath inserted (07/19) Permanent HD catheter later initiated and femoral temporary HD catheter removed. Blood Cx here pending 06/08 G+ so far-Staph hominis. Infectious disease evaluated patient and treated with IV Zosyn. IV Zosyn transition to renally dose oral Cipro and Flagyl on discharge. Wound cx (07/19): 2+ yeast prelim . Patient successfully underwent hemodialysis. Outpatient hemodialysis arranged. Atrial fibrillation on chronic anticoagulation Chronic diastolic congestive heart failure hx of STEMI / CAD, s/p RCA PCI (10/2023) Aspirin, Brilinta and Eliquis held briefly for HD catheter placement. Medications resumed. anemia, unclear etiology hx of iron deficiency anemia in Feb 2023 (iron 20, tsat% 9%) no obvious bleeds. No black tarry stools hgb 7.9 -> 7.2. Chronic kidney disease contributing to the anemia Patient did not require blood transfusion. IDDM2 ACHS Accu-Chek, SSI confirm home insulin regimen Hypertension Hyperlipidemia Hypothyroidism Continue home medications as appropriate Obstructive sleep apnea Patient used CPAP at night Vital Signs/Physical Exam: Temp Pulse Resp BP Pulse Ox 98 F 74 1 L 116/56 L 96 07/25/24 08:00 07/25/24 09:08 07/25/24 08:00 07/25/24 09:08 07/25/24 08:00 General: Alert, In no apparent distress, Oriented x3, Obese HEENT: Mucous membr. moist/pink Neck: Supple, JVD not distended Respiratory: Clear to auscultation bilaterally, Normal air movement Cardiovascular: Regular rate/rhythm, Normal S1 S2 Gastrointestinal: Normal bowel sounds, Soft and benign, Non-distended Musculoskeletal: No swelling Integumentary: No cyanosis Neurological: Normal strength at 5/5 x4 extr Laboratory Data at Discharge: WBC 8.40 thou/uL (4.3-10.9) 07/25/24 05:51 Hgb 8.1 g/dL (13.6-17.9) L 07/25/24 05:51 Hct 24.5 % (39.6-49.0) L 07/25/24 05:51 Plt Count 548 thou/uL (152-406) H 07/25/24 05:51 PT 19.1 SECONDS (9.4-12.5) H 07/18/24 15:40 INR 1.83 07/18/24 15:40 APTT 39.6 SECONDS (24.3-36.9) H 07/18/24 15:40 Sodium 130 mEq/L (136-145) L 07/25/24 05:51 Potassium 3.4 mEq/L (3.5-5.1) L 07/25/24 05:51 BUN 45 mg/dL (7-18) H 07/25/24 05:51 Creatinine 6.39 mg/dL (0.70-1.30) H 07/25/24 05:51 Glucose 176 mg/dL (74-106) H 07/25/24 05:51 Phosphorus 6.2 mg/dL (2.5-4.9) H 07/24/24 05:46 Magnesium 2.0 mg/dL (1.6-2.4) 07/24/24 05:46 Total Bilirubin 0.3 mg/dL (0.2-1.0) 07/23/24 06:08 AST 21 U/L (15-37) 07/23/24 06:08 ALT < 14 U/L (16-61) L 07/23/24 06:08 Alkaline Phosphatase 109 U/L (45-117) 07/23/24 06:08 Home Medications: Allopurinol 100 mg PO DAILY 02/21/23 Furosemide 80 mg PO BID 02/21/23 Gabapentin 100 mg PO TID 02/21/23 Isosorbide Mononitrate [Isosorbide Mononitrate ER] 30 mg PO NOON 02/21/23 Levothyroxine Sodium 50 mcg PO DAILY 02/21/23 Apixaban [Eliquis *] 2.5 mg PO BID #60 tab 03/02/23 Glipizide [Glipizide ER] 10 mg PO DAILY 06/28/23 Insulin Aspart [Novolog Flexpen] 20 unit SQ AC 06/28/23 Insulin Glargine,Hum.rec.anlog [Basaglar Kwikpen U-100] 85 unit SQ BEDTIME 06/28/23 Losartan Potassium 100 mg PO BEDTIME 06/28/23 Aspirin [Aspirin EC] 81 mg PO DAILY #30 tab 10/06/23 Ticagrelor [Brilinta*] 90 mg PO BID #60 tab 10/06/23 Atorvastatin Calcium 40 mg PO BEDTIME 07/18/24 carvediloL [Carvedilol] 12.5 mg PO BID 07/18/24 Calcitrol [Rocaltrol*] 0.25 mcg PO Q48H #15 cap 07/25/24 Epoetin [Retacrit] 10,000 unit IV EVERY HD vial 07/25/24 Folic Acid 1 mg PO DAILY #30 tab 07/25/24 New Medications: Folic Acid 1 mg PO DAILY #30 tab Calcitrol [Rocaltrol*] 0.25 mcg PO Q48H #15 cap Diet: Renal Activity: Ad yeni Followup: Jerson Jimenez MD [ACTIVE - CAN ADMIT] - Otf Neves DO [Primary Care Provider] - Time spent managing pt's care (in minutes): 38
[2024-07-25] MEDS: CIPROFLOXACIN HCL 500 MG TAB PO SCH (14:49)
[2024-07-25 16:02] VITALS: BP 145/68; TEMP 97.9
[2024-07-25] MEDS: FUROSEMIDE 40 MG/4 ML VIAL IV SCH (16:21)
[2024-07-25 16:26] VITALS: O2SAT 99
[2024-07-25] MEDS ORDERED: metroNIDAZOLE 500 MG TABLET PO SCH (21:00)
--- NOTE | 2024-07-25 23:17 | PN ---
Date of Progress Note: 07/25/2024 Subjective: The patient was admitted to the hospital with peritonitis secondary to fungus. The patient's PD catheter was removed. The patient was initiated on hemodialysis. Patient tolerating the dialysis. The patient seen on dialysis today. Physical Examination: Vital Signs: Blood pressure 145/68, pulse of 76. Chest: Clear to auscultation. Heart: S1, S2. Regular. Abdomen: Soft, nontender, morbidly obese. Extremities: Trace edema. Neurologic: Alert. No focality. Laboratory Data: Hemoglobin 8.2, sodium 130, potassium 3.4, bicarb 26, BUN 45, creatinine 6.3, calcium 8.1. Current Medications: The patient on include: 1. Aspirin. 2. Eliquis. 3. Epogen. 4. Brilinta. 5. Isosorbide. 6. Losartan. 7. Lasix. 8. Folic acid. Assessment And Plan: 1. End-stage renal disease. We will continue dialysis Monday, Monday, Monday. 2. Secondary hyperparathyroidism, stable. 3. Peritonitis secondary to fungus, status post PD catheter removal. Continue hemodialysis for the time being. We will remove temporary hemodialysis catheter. 4. Diabetes, as by primary. 5. Anemia of chronic kidney disease. Continue EDUARDO. Time spent examining the patient [id number] reviewing data lab and an audiology placing order discussing the case with the patient discussing the case with the steam bone press tender including hospitalist and nursing staff more than 55-minute KATHERINE Voice ID: [id number] Report ID: [id number] MCKAYLA
--- NOTE | 2024-07-29 12:50 | EKG ---
Test Date: 2024-07-18 Test Time: 17:30:37 Activities Aide: RAY MEASUREMENT RESULTS: Intervals: Rate: 81 OH: 154 QRSD: 82 QT: 402 QTc: 466 [place]: P: 43 OH: 154 QRS: 74 T: 43 INTERPRETIVE STATEMENTS: Normal sinus rhythm Normal ECG Compared to ECG 10/05/2023 11:11:27 ST (T wave) deviation no longer present Myocardial infarct finding no longer present Myocardial infarct finding no longer present Electronically Signed On 07-29-24 12:24:41 DIRECTOR OF FIELD SERVICE by Christiano Gilbert
--- NOTE | 2024-08-04 20:24 | CON ---
Date of Consultation: 07/18/2024 Brief Hpi: The patient is a 59-year-old male with history of coronary artery disease, end-stage michelle l disease on peritoneal dialysis with chronic diastolic CHF, pulmonary hypertension, atrial fibrillat ion on chronic anticoagulation, diabetes, hypertension, hyperlipidemia, hypothyroidism, obstructive s leep apnea, who presents with fevers and concern for peritoneal dialysis catheter infection. He has been having several weeks of low-grade infections and cultures were drawn for the peritoneal dialysis catheter, which grew yeast and gram-positive bacteria. As such, he was sent by the corncob pipe supervisor to the ER for discussion of removal of the peritoneal dialysis catheter, placement of temporary hemodial ysis catheter, and ultimately placement of tunneled PermCath. After his infection was removed, he rivas d appropriate length of line holiday. Allergies: THE PATIENT HAS ALLERGIES TO BLEACH. Home Medications: Include allopurinol, Lasix, gabapentin, Apresoline, isosorbide mononitrate, levoth yroxine, Pravachol, Eliquis, glimepiride, NovoLog FlexPen, insulin glargine, losartan, aspirin, sarah nolactone, Brilinta, and carvedilol. Past Medical History: Significant for hypertension, diabetes, enlarged heart, peripheral neuropathy, sleep apnea, diabetes, end-stage renal disease on peritoneal dialysis, chronic diastolic CHF, atrial fibrillation, coronary artery disease. Past Surgical History: Includes appendectomy, knee surgery, cataract surgery, right elbow surgery/te nnis elbow in 2019, right leg surgery, peritoneal dialysis catheter placement. Family History: Significant for heart disease, diabetes, blood disorders, kidney disease. Mother rivas d a heart disease. Social History: He denies smoking, alcohol, or recreational drug use. Review of Systems: Ten-point review of systems other than HPI, there is fever, chills, weakness, and malaise. Physical Examination: General: At the time of my examination, awake, alert, and oriented. Psychiatric: Appropriate and conversive. He is obese generally, approximately 360 pounds. HEENT: Otherwise normocephalic. Sclerae anicteric. Mucous membranes are moist. Pharynx clear. Neck: Supple without JVD. Chest: Normal expansion and excursion. Cardiovascular: Regular rate and rhythm. Pulmonary: Clear to auscultation bilaterally. Abdomen: Soft. There is peritoneal dialysis catheter evident on the abdominal wall without any obvi ous abscess or infectious component grossly. Otherwise, his abdomen is soft with nontender and nondi stended. Extremities: No clubbing, cyanosis, or edema. Skin: Warm and dry. Laboratory Data: His white blood cell count of 13.2, hemoglobin is 9.7, hematocrit of 28.9, platelet count was 488, neutrophils are 88%. PT 19.1, INR 1.83, PTT 39.6. Sodium is 130, potassium 3.5, chl oride 93, carbon dioxide is 29, BUN 46, creatinine 6.9, glucose is 154, lactic acid 1.2, calcium is 7 .4, AST 30, ALT 32, alkaline phosphatase of 115. Assessment/plan: This is a 59-year-old male who comes in with evidence of possible peritoneal dialys is catheter infection. 1. IV fluids. 2. Medical management. 3. Direct Casting Operator's consultation for optimal transition off chronic anticoagulation to allow for remova l of the peritoneal dialysis catheter and subsequent placement of likely temporary hemodialysis eliza ter placement. Ultimately, we will need to transition him to a PermCath as well. There is evidence of clearance of the infection and ensurance that no systemic infection remains. I have explained the risks, benefits, and alternatives of removal of peritoneal dialysis catheter and placement of both t emporary and permanent hemodialysis catheters include, but not limited to bleeding, infection, damage to surrounding tissues, damage to internal organs, pneumothorax, heart attacks, blood clots, strokes , other unforeseen complications in the perioperative period. The patient displayed understanding of the above stated plan and agreed to proceed as indicated. Continue antibiotic coverage. Continue m edical management. Continue plan per corncob pipe supervisor as well and women's activities adviser. Thank you for this interesting consult. MELANIE/SHY Voice ID: [id number] Report ID: [id number]
== END 2024-07-25 20:00 | disposition home or self-care (01) | DRG 907 ==
LOC: ER 14:35 → ERHOLD 16:30 → 4TH 19:13
PROVIDERS: ADMIT Hospitalist; ATTEND Internal Medicine
PROC: 06HY33Z Insertion of Infusion Device into Lower Vein, Percutaneous Approach (ICD-10-PCS; 2024-07-19)
PROC: 5A1D70Z Performance of Urinary Filtration, Intermittent, Less than 6 Hours Per Day (ICD-10-PCS; 2024-07-19)
PROC: 0WPG03Z Removal of Infusion Device from Peritoneal Cavity, Open Approach (ICD-10-PCS; principal; 2024-07-19 16:30)
PROC: 0JH63XZ Insertion of Tunneled Vascular Access Device into Chest Subcutaneous Tissue and Fascia, Percutaneous Approach (ICD-10-PCS; 2024-07-22)
PROC: 02HV33Z Insertion of Infusion Device into Superior Vena Cava, Percutaneous Approach (ICD-10-PCS; 2024-07-22)
DX: T85.71XA Infection and inflammatory reaction due to peritoneal dialysis catheter, initial encounter (principal); K65.8 Other peritonitis; N18.6 End stage renal disease; I50.32 Chronic diastolic (congestive) heart failure; I13.2 Hypertensive heart and chronic kidney disease with heart failure and with stage 5 chronic kidney disease, or end stage renal disease; Z68.42 Body mass index [BMI] 45.0-49.9, adult; E11.22 Type 2 diabetes mellitus with diabetic chronic kidney disease; E11.42 Type 2 diabetes mellitus with diabetic polyneuropathy; D63.1 Anemia in chronic kidney disease; E66.01 Morbid (severe) obesity due to excess calories; I48.91 Unspecified atrial fibrillation; E78.5 Hyperlipidemia, unspecified; N25.0 Renal osteodystrophy; E03.9 Hypothyroidism, unspecified; G47.33 Obstructive sleep apnea (adult) (pediatric); I25.2 Old myocardial infarction; I25.10 Atherosclerotic heart disease of native coronary artery without angina pectoris; B95.7 Other staphylococcus as the cause of diseases classified elsewhere; Z99.2 Dependence on renal dialysis; Z79.82 Long term (current) use of aspirin; Z79.01 Long term (current) use of anticoagulants; Z79.84 Long term (current) use of oral hypoglycemic drugs; Z90.49 Acquired absence of other specified parts of digestive tract; Z79.890 Hormone replacement therapy; Z79.899 Other long term (current) drug therapy; Z91.158 Patient's noncompliance with renal dialysis for other reason
CPT/HCPCS: 36415; 71045; 76000; 80048; 80053; 80202; 82947; 83605; 83735; 84100; 85025; 85610; 85730; 86704; 86705; 86706; 86803; 86850; 86900; 86901; 87040; 87070; 87075; 87077; 87186; 87205; 87340; 90935; 93005; 97161; 97530; 99285; A4216; C1752; J0360; J0690; J1450; J1644; J1940; J2003; J2250; J2270; J2371; J2405; J2543; J2704; J2710; J3010; J7040; J7050

== ENCOUNTER 2024-10-21 16:32 | Emergency (ER) | payer OTHER ==
--- OUTSIDE RECORDS SUMMARY | 2024-10-21 16:42 | XMS REPORT | Continuity of Care Document ---
Author Name Unknown Address [address] [facility] [address] [place] [address] [facility] [place] Address [address] [facility] [address] [place] [address] Care Team Providers Care City Manager Name Role Phone Gena Genoveva GUSTAFSON Primary Care Physician Unava ilable GAVIOTA COSTA Attending Clinician Unavailable DAX PRADO Attending Clinician Unavailable LETHA RODRIGUEZ Attending Clinician Unava ilKRYSTYNA Amin Attending Clinician Unavailable [facility] B Attending Clinician Unavaila ble [id number] Attending Clinician Unavailable KENJI WEAVER Attending Clinician Unavailable CARLOS NOEL Attending Clinician Unavailable LAB90 Attending Clinician Unavailable MD CARMENCITA Attending Clinician Unavailab LARA Oneal Attending Clinician Unavailable JACKY MATHEW Attending Clinician Unavailable ROGELIO OJEDA Attending Clinician Unavailable PARRISH HALE Attending Clinician Unavailab le 1, [facility] Attending Clinic jordyn Unavailable ROBYN CONNELLY Attending Clinician Unavailable Doctor Unassigned, Edgar Attending Clinician U BEVERLY Stuart Attending Clinician UnaDIRK Enrique Attending Clinician Unavailable NAOMY CONN Attending Clinician Unavailable [facility] Attending Clinic jordyn Unavailable Letha Rodriguez MD Attending Clinician [phone] Rogelio Ojeda MD Attending Clinician [phone] TOMOGRAPHY, [facility] COHERENCE Attending Cl inician Unavailable Dirk Blanc MD Attending Clinician [phone] LAB47 Attending Clinician Unavailable Krystyna Johnson DO Attending Clinician [phone] NATALIE BACA Attending Clinician Unavailabl e PL, TECH 1 Attending Clinician Unavailable LAWANDA LYLES Attending Clinician Unavaila ble Lawanda Lyles PA-C Attending Clinician + [phone] Vazquez MCLAUGHLIN, Domenica Attending Clinician [phone] CHELLE CUTLER Attending Clinician Unavailable DOMENICA ARIAS Attending Clinician Unavailable TRED45 Attending Clinician Unavailable SWAB, [facility] COVID SELF Attending Clinician Unava ilable GOD48-LBO Attending Clinician Unavailable NARCISO GUPTA Attending Clinician Unavai KAYLIE Ureña Attending Clinician Unavail able Carlos Noel MD Attending Clinician [phone] DIANA MARROQUIN Attending Clinician Unavailable GERARDO HALE Attending Clinician Unavaila ble Payers Payer Name Policy Type Policy Number Effective Date Expirati on Date Source [employer] [facility] [id number] 2024 00:00:00 MEDICAID-[place]IC 6 [id number] 2021 00:00:00 [facility] [place] O 7 [id number] 2020 00:00:00 Problems Condition Name Condition Details Condition Category Status Onset Date Resolution Date Last Treatment Date Treating Clinician Comments Source History of NH (myocardia l infarction ) History of NH (myocardia l infarction ) Disease Active 07-04 00:00: 00 Yanely Binghamold - Externa l CKD (chronic kidney disease) stage 5, GFR less than 15 ml/min (multi HCC) CKD (chronic kidney disease) stage 5, GFR less than 15 ml/min (multi HCC) Disease Active 07-04 00:00: 00 Yanely Jarrett - Externa l Chronic constipati on Chronic constipati on Disease Active 3- 00:00: 00 Yanely Jarrett - Externa l Anemia of chronic disease Anemia of chronic disease Disease Active 3- 00:00: 00 Yanely lee Paroxysmal atrial fibrillati [...] Stage 4 chronic kidney disease Disease Active 02-03 00:00: 00 Yanely Seybold - Externa l [...] Disease Active 2020-06 0- 00:00: 00 Yanely Seybold - Externa l [...] Body mass index 40.0-44.9, adult Disease Active 9- 00:00: 00 Yanely Jarrett 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, with macular edema, associated with type 2 diabetes mellitus (multi HCC) 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, with macular edema, associated with type 2 diabetes mellitus (multi HCC) Disease Active 02-12 00:00: 00 Yanely Yina jesus Severe nonprolife rative diabetic retinopath y [...] HCC) Disease Active 12-28 00:00: 00 Yanely Yina jesus Essential hypertensi on Essential hypertensi on [...] HCC) Disease Active 12-28 00:00: 00 Yanely Bernstein Externa l 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) Disease Active 12-28 00:00: 00 Yanely lee Hyperchole sterolemia Hyperchole sterolemia Disease Active 12-28 00:00: 00 Yanely lee Acute respirator y failure Acute respirator y failure Disease Active 2018-06 00:00: 00 [facility] Morbid obesity Morbid obesity Disease Active 2018-06 00:00: 00 [facility] Hypertensi ve emergency Hypertensi ve emergency Disease Active 2018-06 00:00: 00 [facility] Acute diastolic congestive heart failure Acute diastolic congestive heart failure Disease Active 2018-06 00:00: 00 [facility] KEVIN on CPAP KEVIN on CPAP Disease Active 2018-06 00:00: 00 [facility] Stage 3 chronic kidney disease Stage 3 chronic kidney disease Disease Active 2018-06 00:00: 00 [facility] IDDM (insulin dependent diabetes mellitus) IDDM (insulin dependent diabetes mellitus) Disease Active 2018-06 00:00: 00 [facility] HELEN (acute kidney injury) HELEN (acute kidney injury) Disease Active 2018-06 00:00: 00 [facility] Morbid obesity with body mass index of 40.0-49.9 Morbid obesity with body mass index of 40.0-49.9 Disease Active 2018-06 00:00: 00 [facility] Allergies, Adverse Reactions, Alerts Allergy Name Allergy Type Status Severity Reaction(s) Onset Date Inactive Date Treating Clinician Comments Source NO KNOWN ALLERGIE S Drug Class Active [facility] Social History Social Habit Start Date Stop [...] 2022-12-16 00:00:00 Quit many years ago, 1997 Yanley Jarrett - External Sex 2020-09-23 08:32:42 2020-09-23 08:32:42 Male (finding) Yanely Jarrett - External Sex assigned at 1965 00:00:00 1965 00:00:00 M Yanely Jarrett - External Smoking Status Start Date Stop Date Source Never smoked tobacco Yanely Jarrett - External Ex-smoker 2019-04-09 00:00:00 2019-04-09 00:00:00 [facility] Medications Ordered Medication Name Filled Medication Name [...] Solution Prefilled Syringe 07-04 10:08: 15 Yes [id number] 50ug Inject 50 mcg as directed every other week. Yanely lee Levothyroxi ne Sodium 50 MCG oral Tablet 07-04 00:00: 00 Yes [id number] 50ug QD Take 1 tablet (50 mcg total) by mouth daily. Yanely lee Doxycycline Hyclate 100 MG oral Tablet 2023-06 00:00: 00 Yes [id number] 100mg Q.5D Take 1 tablet (100 mg total) by mouth 2 times daily. Yanely lee Triamcinolo ne Acetonide 0.1 % apply externally Cream 2023-06 00:00: 00 Yes [id number] APPLY TO THE AFFECTED AREA(S) 2 TIMES A DAY. Yanely lee FLUTICASONE PROPIONATE, NASAL, 50 MCG/ACT nasal Suspension 2023-06 00:00: 00 Yes [id number] 50ug QD USE 1 SPRAY IN EACH NOSTRIL ONCE DAILY Yanely lee KETOCONAZOL E, TOPICAL, 2 % apply externally Shampoo 2023-06 00:00: 00 Yes [id number] APPLY 10 ML TO AFFECTED AREA TWICE WEEKLY Yanely lee Allopurinol 100 MG oral Tablet 03-01 00:00: 00 Yes 100mg QD take 1 tablet by mouth daily Yanely lee Linzess 145 MCG oral Capsule 02-28 00:00: 00 Yes [id number] 145ug QD take 1 capsule by mouth daily Yanely lee Pravastatin Sodium 40 MG oral Tablet 08 00:00: 00 07-04 00:00 :00 No [id number] 40mg take 1 tablet by mouth at bedtime Yanely lee Insulin Glargine (Basaglar KwikPen) 100 UNIT/ML subcutaneou s Solution Pen-injecto r 7-05 00:00: 00 Yes [id number] INJECT 85 UNITS UNDER THE SKIN EVERY EVENING. Yanely lee Methoxy PEG-Epoetin Beta (Mircera) 50 MCG/0.3ML injection Solution Prefilled Syringe 08-28 09:59: 44 Yes [id number] 50ug Inject 50 mcg as directed every [...] mg total) by mouth 2 times daily. Yaneyl lee Losartan Potassium (COZAAR) 100 MG oral Tablet 08-28 00:00: 00 Yes [id number] 100mg QD Take 1 tablet (100 mg total) by mouth daily. Yanely lee Clonidine (CATAPRES) 0.2 MG oral Tablet 08-28 00:00: 00 Yes [id number] .2mg Q.5D Take 1 tablet (0.2 mg total) by mouth 2 times daily as needed (Elevated BP). Yanely lee Patiromer Sorbitex Calcium (Veltassa) 8.4 g oral Pack 08-28 00:00: 00 Yes [id number] QD Take 1 dose pack by mouth [...] Solution Pen-injecto r 08-06 00:00: 00 Yes [id number] 80 units SQ nightly. Yanely lee Insulin Pen Needle 31G X 5 MM does not apply [facility] 08-06 00:00: 00 Yes [id number] Takes insulin QID. Yanely lee Insulin Aspart (NovoLOG FlexPen) 100 UNIT/ML subcutaneou s Solution Pen-injecto r 08-06 00:00: 00 Yes [id number] 20U Inject 20 units into the skin 3 times daily (before meals). Yanely lee GlipiZIDE 10 MG oral TABLET SR 24 HR 08-06 00:00: 00 Yes 10mg Take 1 tablet (10 mg total) by mouth every morning. Yanely lee Gabapentin 100 MG oral Capsule 08-06 00:00: 00 Yes [id number] 100mg Q.[id number] 3D Take 1 capsule (100 mg total) by mouth 3 times daily. Yanely lee Levothyroxi ne Sodium 50 MCG oral Tablet 08-06 00:00: 00 07-04 00:00 :00 No [id number] 50ug QD Take 1 tablet (50 mcg [...] Solution Pen-injecto r 06-15 00:00: 00 Yes [id number] 80 units SQ nightly. Yanely lee Insulin Aspart (NovoLOG FlexPen) 100 UNIT/ML subcutaneou s Solution Pen-injecto r 06-15 00:00: 00 Yes [id number] 20U Inject 20 units into the skin [...] 2022-06 10:46: 17 05-01 00:00 :00 No [id number] 1{tbl} Take 1 tablet by mouth nightly [...] apply externally Shampoo 2022-06 00:00: 00 Yes [id number] 10mL Apply 10 mL topically twice a week. Yanely lee FLUTICASONE PROPIONATE, NASAL, 50 MCG/ACT nasal Suspension 2022-06 00:00: 00 Yes [id number] 50ug Use 1 spray (50 mcg total) in each nostril daily. Yanely lee Furosemide 80 MG oral Tablet 2022-06 00:00: 00 Yes [id number] 80mg Q.5D Take 1 tablet (80 mg total) by mouth 2 times daily. Yanely lee Triamcinolo ne Acetonide 0.1 % apply externally Cream 2022-06 00:00: 00 05-30 05:59 :00 No [id number] Apply to affected skin twice daily. Yanely lee Cholecalcif lacey (Vitamin D3) 25 MCG (1000 UT) oral Capsule 2022-06 00:00: 00 05-30 00:00 :00 No [id number] 1{capsu le} Take 1 capsule by mouth three times a week. Yanely lee Carvedilol 25 MG oral Tablet 2022-06 00:00: 00 Yes [id number] 25mg Take 1 tablet (25 mg total) by mouth in the morning and 1 tablet (25 mg total) in the evening. Take with meals. Yanely lee Allopurinol 100 MG oral Tablet 2022-06 0 00:00: 00 Yes 100mg TAKE 1 TABLET BY MOUTH DAILY Yanely lee GlipiZIDE 10 MG oral TABLET SR 24 HR 02-27 00:00: 00 Yes TAKE ONE TABLET BY MOUTH EVERY MORNING Yanely lee Linzess 145 MCG oral Capsule 02-20 00:00: 00 Yes [id number] TAKE ONE CAPSULE BY MOUTH DAILY Yanely lee Benzonatate (Tessalon Perles) 100 MG oral Capsule 02-08 00:00: 00 05-01 00:00 :00 No [id number] 100mg Q.[id number] 3D Take 1 capsule (100 mg total) [...] VITAMIN MENS OR) 02-02 09:34: 24 Yes [id number] 1{tbl} Take 1 tablet by mouth nightly [...] No 3 drops each ear bid prn. aYnely lee Magnesium Citrate oral Solution 01-30 08:55: 31 Yes 296mL Take 296 mL by mouth once. Yanely lee Multiple Vitamin (MULTI VITAMIN MENS OR) 01-30 08:55: 31 Yes [id number] 1{tbl} Take 1 tablet by mouth nightly [...] VITAMIN MENS OR) 01-23 09:08: 52 Yes [id number] 1{tbl} Take 1 tablet by mouth nightly [...] MG oral Tablet 12-26 00:00: 00 Yes [id number] TAKE ONE TABLET BY MOUTH TWICE A DAY WITH MEALS Yanely lee Delavan-3 Fatty Acids (Fish Oil Concentrate ) 300 MG oral Capsule 12-16 09:19: 37 12-16 00:00 :00 No [id number] 1{capsu le} Take 1 capsule by mouth daily Yanely lee Ergocalcife rol 1.25 MG (24641 UT) oral Capsule 12-16 09:19: 37 12-16 00:00 :00 No [id number] Take 50,000 units by mouth once a [...] 5 MG oral Tablet 12-16 08:48: 14 2023- 07-14 00:00 :00 No 5mg Take 1 tablet (5 mg total) by mouth 2 times daily Take 2 tabs orally daily Yanely lee Isosorbide Mononitrate CR 30 MG oral TABLET SR 24 HR 12-16 00:00: 00 Yes [id number] 30mg QD Take 1 tablet (30 mg total) by mouth daily Yanely lee Delavan-3 Fatty Acids (Fish Oil Concentrate ) 300 MG oral Capsule 12-16 00:00: 00 Yes [id number] 1{capsu le} Q.5D Take 1 capsule by mouth 2 times daily Yanely lee Insulin Glargine (Basaglar KwikPen) 100 UNIT/ML subcutaneou s Solution Pen-injecto r 12-16 00:00: 00 06-15 00:00 :00 No [id number] 75 units SQ nightly Yanely lee Insulin Aspart (NovoLOG) 100 UNIT/ML injection Solution 12-16 00:00: 00 06-15 00:00 :00 No [id number] INJECT UNDER THE SKIN 20 UNITS THREE TIMES A DAY BEFORE MAJOR MEALS Yanely lee Ergocalcife rol 1.25 MG (75596 UT) oral Capsule 12-16 00:00: 00 05-01 00:00 :00 No [id number] 26680Q Take 1 capsule (50,000 units total) by mouth once a month Yanely lee Furosemide 40 MG oral Tablet 12-16 00:00: 00 05-01 00:00 :00 No [id number] 60mg Take 1.5 tablets (60 mg total) by mouth 2 times daily Yanely lee Azithromyci n 250 MG oral Tablet 12-16 00:00: 00 12-22 04:59 :00 No [id number] Take 2 tablets by mouth on day 1 then 1 tablet by mouth daily for 4 days thereafter . Yanely lee Zoster Vac Recomb Adjuvanted (Shingrix) 50 MCG/0.5 mL Intramuscul ar Recon Suspension 12-16 00:00: 00 12-17 04:59 :00 No [id number] 50ug Inject 0.5 mL (50 mcg total) into the muscle once for 1 dose Yanely lee Isosorbide Mononitrate CR 30 MG oral TABLET SR 24 HR 12-15 00:00: 00 12-16 00:00 :00 No Yanely lee Pravastatin Sodium 40 MG oral Tablet 10-25 00:00: 00 Yes [id number] 40mg Take 1 tablet (40 mg total) by mouth nightly AT BEDTIME Yanely lee Gabapentin 100 MG oral Capsule 10-25 00:00: 00 08-06 00:00 :00 No [id number] 100mg Take 1 capsule (100 mg total) by mouth 3 times daily Yanely lee Insulin Pen Needle 31G X 5 MM does not apply Mis 10-25 00:00: 00 08-06 00:00 :00 No [id number] Takes insulin QID Yanely lee Levothyroxi ne Sodium 50 MCG oral Tablet 10-25 00:00: 00 08-06 00:00 :00 No [id number] 50ug Take 1 tablet (50 mcg total) by mouth daily Yanely lee Continuous Blood Gluc Transmit (Dexcom G5 Mobile Transmitter ) does not apply [facility] 10-25 00:00: 00 05-30 00:00 :00 No [id number] Check BS in the am fasting, before meals and as needed. Yanely lee Empaglifloz in (Jardiance) 10 MG oral Tablet 10-25 00:00: 00 05-01 00:00 :00 No [id number] 1 tablet po Q daily Yanely lee Insulin Aspart (NovoLOG) 100 UNIT/ML injection Solution 10-25 00:00: 00 12-16 00:00 :00 No [id number] INJECT UNDER THE SKIN 15 UNITS THREE TIMES A DAY BEFORE MAJOR MEALS Yanely lee Insulin Glargine (Basaglar KwikPen) 100 UNIT/ML subcutaneou s Solution Pen-injecto r 10-25 00:00: 00 12-16 00:00 :00 No [id number] 85 units SQ nightly Yanely lee Carvedilol 25 MG oral Tablet - 00:00: 00 Yes [id number] TAKE ONE TABLET BY MOUTH TWICE A DAY WITH MEALS Yanely lee Allopurinol 100 MG oral Tablet -06 00:00: 00 12-16 00:00 :00 No [id number] TAKE ONE TABLET BY MOUTH DAILY Yanely lee Magnesium Citrate oral Solution 07-21 14:09: 58 Yes 296mL Take 296 mL by mouth once Yanely lee Delavan-3 Fatty Acids (Fish Oil Concentrate ) 300 MG oral Capsule 07-21 14:09: 58 Yes [id number] 1{capsu le} Take 1 capsule by mouth daily Yanely lee Multiple Vitamin (MULTI VITAMIN MENS OR) 07-21 14:09: 58 Yes [id number] 1{tbl} Take 1 tablet by mouth nightly Yanely lee Ergocalcife rol 1.25 MG (68272 UT) oral Capsule 16 14:09: 58 Yes [id number] Take 50,000 units by mouth once a week Yanely lee Sodium Bicarbonate 650 MG oral Tablet 07-21 14:09: 58 Yes 650mg Take 650 mg by mouth 3 times daily Yanely lee Continuous Blood Gluc Transmit (Dexcom G5 Mobile Transmitter ) does not apply Misc 07-21 00:00: 00 Yes [id number] Check BS in the am fasting, before meals and as needed. Yanely lee Continuous Blood Gluc Disk Sharpener (Dexcom G5 Disk Sharpener Kit) does not apply Device 07-21 00:00: 00 05-30 00:00 :00 No [id number] Check BS in the am fasting, before meals and as needed. Yanely lee Azithromyci n 250 MG oral Tablet 2-16 00:00: 00 07-27 05:59 :00 No [id number] Take 2 tablets by mouth on day 1 then 1 tablet by mouth daily for 4 days thereafter . Yanely lee Amlodipine Besylate (NORVASC) 5 MG oral Tablet 07-15 00:00: 00 Yes Yanely lee Ostomy Supplies (Skin Tac Adhesive Barrier Wipe) does not apply Misc -24 00:00: 00 05-30 00:00 :00 No Use [...] MCG oral Tablet 06-21 00:00: 00 Yes [id number] 50ug Take 1 tablet (50 mcg total) by mouth daily Yanely lee Magnesium Citrate oral Solution 2021-06 10:45: 13 Yes 296mL Take 296 mL by mouth once Yanely lee Delavan-3 Fatty Acids (Fish Oil Concentrate ) 300 MG oral Capsule 2021-06 10:45: 13 Yes [id number] 1{capsu le} Take 1 capsule by mouth daily Yanely lee Multiple Vitamin (MULTI VITAMIN MENS OR) 2021-0612 10:45: 13 Yes [id number] 1{tbl} Take 1 tablet by mouth nightly Yanely lee Ergocalcife rol 1.25 MG (76107 UT) oral Capsule 2021-0612 10:45: 13 Yes [id number] Take 50,000 units by mouth once a [...] Solution Pen-injecto r 2021-06 00:00: 00 Yes [id number] 75 units SQ nightly Yanely lee Insulin Pen Needle 31G X 5 MM does not apply [facility] 2021-06 00:00: 00 Yes [id number] Takes insulin QID Yanely lee Empaglifloz in (Jardiance) 10 MG oral Tablet 2021-06 00:00: 00 Yes [id number] 1 tablet po Q daily Yanely lee Furosemide 80 MG oral Tablet 2021-06 00:00: 00 Yes [id number] Yanely lee Clonidine (CATAPRES) 0.2 MG oral Tablet 2021-06 00:00: 00 08-28 00:00 :00 No [id number] .2mg Take 1 tablet (0.2 mg total) by mouth 3 times daily. Yanely lee Bevacizumab (AVASTIN) 100 mg/4 mL - Physician Imelda thomas ([id number]) 2021-06 15:15: 00 04-22 15:32 :00 No [id number] 1.25mg Yanely lee Magnesium Citrate oral Solution 2021-06 09:04: 34 Yes 296mL Take 296 mL by mouth once Yanely lee Fenugreek 500 MG oral Capsule 2021-06 09:04: 34 Yes 2{capsu le} Take 2 capsules by mouth 2 times daily Yanely lee Delavan-3 Fatty Acids (Fish Oil Concentrate ) 300 MG oral Capsule 2021-06 09:04: 34 Yes [id number] 1{capsu le} Take 1 capsule by mouth daily Yanely lee Multiple Vitamin (MULTI VITAMIN MENS OR) 2021-06 09:04: 34 Yes [id number] 1{tbl} Take 1 tablet by mouth nightly Yanely lee Ergocalcife rol 1.25 MG (49904 UT) oral Capsule 2021-06 09:04: 34 Yes [id number] Take 50,000 units by mouth once a week Yanely lee Biotin 5 MG oral Capsule 2021-06 09:04: 34 Yes 1{capsu le} Take 1 capsule by mouth daily Yanely lee Sodium Bicarbonate 650 MG oral Tablet 2021-06 09:04: 34 Yes 650mg Take 650 mg by mouth 3 times daily Yanely lee Carvedilol 25 MG oral Tablet 2021-06 00:00: 00 Yes [id number] TAKE ONE TABLET BY MOUTH TWICE A DAY WITH MEALS Yanely lee Insulin Aspart (NovoLOG) 100 UNIT/ML injection Solution 2021-06 00:00: 00 Yes INJECT UNDER THE SKIN 15 UNITS THREE TIMES DAILY BEFOFE MAJOR MEALS Yanely lee Bevacizumab (AVASTIN) 100 mg/4 mL - Physician Administere d ([id number]) 2021-06 14:30: 00 03-11 14:20 :00 No [id number] 1.25mg Yanely lee Magnesium Citrate oral Solution 2021-06 08:50: 12 Yes 296mL Take 296 mL by mouth once Yanely lee Fenugreek 500 MG oral Capsule 2021-06 08:50: 12 Yes 2{capsu le} Take 2 capsules by mouth 2 times daily Yanely lee Delavan-3 Fatty Acids (Fish Oil Concentrate ) 300 MG oral Capsule 2021-06 007 08:50: 12 Yes [id number] 1{capsu le} Take 1 capsule by mouth daily Yanely lee Multiple Vitamin (MULTI VITAMIN MENS OR) 2021-06 007 08:50: 12 Yes [id number] 1{tbl} Take 1 tablet by mouth nightly Yanely lee Ergocalcife rol 1.25 MG (29138 UT) oral Capsule 2021-06 0 08:50: 12 Yes [id number] Take 50,000 units by mouth once a [...] Fenugreek 500 MG oral Capsule 2021-06 0 08:37: 32 Yes 2{capsu le} Take 2 capsules by mouth 2 times daily Yanely lee Delavan-3 Fatty Acids (Fish Oil Concentrate ) 300 MG oral Capsule 2021-06 0 08:37: 32 Yes [id number] 1{capsu le} Take 1 capsule by mouth daily Yanely lee Multiple Vitamin (MULTI VITAMIN MENS OR) 2021-06 0 08:37: 32 Yes [id number] 1{tbl} Take 1 tablet by mouth nightly Yanely lee Ergocalcife rol 1.25 MG (04616 UT) oral Capsule 2021-06 006 08:37: 32 Yes [id number] Take 50,000 units by mouth once a week Yanely lee Biotin 5 MG oral Capsule 2021-06 0 08:37: 32 Yes 1{capsu le} Take 1 capsule by mouth daily Yanely lee Sodium Bicarbonate 650 MG oral Tablet 2021-06 08:37: 32 Yes 650mg Take 650 mg by mouth 3 times daily Yanely lee Linzess 145 MCG oral Capsule 02-21 00:00: 00 Yes [id number] TAKE ONE CAPSULE BY MOUTH DAILY Yanely [...] MG oral Capsule 01-24 00:00: 00 Yes [id number] 100mg Take 1 capsule (100 mg total) by mouth 3 times daily Yanely lee Pravastatin Sodium 40 MG oral Tablet 01-24 00:00: 00 Yes [id number] 40mg Take 1 tablet (40 mg total) by mouth nightly AT BEDTIME Yanely lee Empaglifloz in (Jardiance) 10 MG oral Tablet 01-24 00:00: 00 05-16 00:00 :00 No [id number] 1 tablet po Q daily Yanely lee Insulin Glargine (Basaglar KwikPen) 100 UNIT/ML subcutaneou s Solution Pen-injecto r 01-24 00:00: 00 05-16 00:00 :00 No [id number] 85 units SQ nightly Yanely lee Insulin Pen Needle 31G X 5 MM does not apply Misc 01-24 00:00: 00 05-16 00:00 :00 No [id number] Takes insulin QID Yanely lee Carvedilol 25 MG oral Tablet 12-29 00:00: 00 Yes TAKE ONE TABLET BY MOUTH TWICE A DAY WITH A MEAL Yanely lee Allopurinol 100 MG oral Tablet 12-29 00:00: 00 Yes [id number] TAKE ONE TABLET BY MOUTH DAILY Yanely [...] by mouth 2 times daily Yanely Jarrett Delavan-3 Fatty Acids (Fish Oil Concentrate ) 300 MG oral Capsule 10-29 07:59: 40 Yes [id number] 1{capsu le} Take 1 capsule by mouth [...] the right eye 4 times daily Yanely stew Bevacizumab (AVASTIN) 100 mg/4 mL - Physician Imelda thomas ([id number]) 09-24 14:15: 00 09-24 14:11 :00 No [id number] 1.25mg Yanely Jarrett Potassium 99 MG oral Tablet 09-24 08:21: 31 Yes 1{tbl} Take 1 tablet by mouth daily Yanely Sealexold GLUCOSAMINE -FISH OIL-EPA-DHA OR 09-24 08:21: 31 Yes 1{capsu le} Take 1 capsule by mouth daily Yanely Ahmadiybold Aspirin 81 MG oral Capsule 09-24 08:21: 31 Yes 1{capsu le} Take 1 capsule by mouth daily Yanely Binghamold Magnesium Citrate oral Solution 09-24 08:21: 31 Yes 296mL Take 296 mL by mouth once Yanely Jarrett Fenugreek 500 MG oral Capsule 09-24 08:21: 31 Yes 2{capsu le} Take 2 capsules by mouth 2 times daily Yanely Binghamold Delavan-3 Fatty Acids (Fish Oil Concentrate ) 300 MG oral Capsule 09-24 08:21: 31 Yes [id number] 1{capsu le} Take 1 capsule by mouth daily Yanely Ahmadiybold Potassium 99 MG oral Tablet 08-25 08:04: 08 Yes 1{tbl} Take 1 tablet by mouth daily Yanely Jarrett GLUCOSAMINE -FISH OIL-EPA-DHA OR 08-25 08:04: 08 Yes 1{capsu le} Take 1 capsule by mouth daily Yanely Seybold Aspirin 81 MG oral Capsule 08-25 08:04: 08 Yes 1{capsu le} Take 1 capsule by mouth daily Yanely Seybold Magnesium Citrate oral Solution 08-25 08:04: 08 Yes 296mL Take 296 mL by mouth once Yanely Ahmadiybold Fenugreek 500 MG oral Capsule 08-25 08:04: 08 Yes 2{capsu le} Take 2 capsules by mouth 2 times daily Yanely Ahmadiybold Delavan-3 Fatty Acids (Fish Oil Concentrate ) 300 MG oral Capsule 08-25 08:04: 08 Yes [id number] 1{capsu le} Take 1 capsule by mouth daily Yanely alexemmanuel Azithromyci n 250 MG oral Tablet 08-25 00:00: 00 Yes [id number] Take 2 tablets by mouth on day 1 then 1 tablet by mouth daily for 4 days thereafter . Yanely Sealexemmanuel cloNIDine 0.1 mg tablet 08-18 00:00: 00 Yes [id number] .1mg Take 1 tablet by mouth 2 (two) times daily. [facility] Bevacizumab (AVASTIN) 100 mg/4 mL - Physician Administere d ([id number]) 08-13 16:00: 00 08-13 16:05 :00 No [id number] 1.25mg Yanely Sealexemmanuel Potassium 99 MG oral Tablet 08-13 10:03: 24 Yes 1{tbl} Take 1 tablet by mouth daily Yanely Jarrett GLUCOSAMINE -FISH OIL-EPA-DHA OR 08-13 10:03: 24 Yes 1{capsu le} Take 1 capsule by mouth daily Yanely alexold Aspirin 81 MG oral Capsule 08-13 10:03: 24 Yes 1{capsu le} Take 1 capsule by mouth daily Yanely Sealexemmanuel Magnesium Citrate oral Solution 08-13 10:03: 24 Yes 296mL Take 296 mL by mouth once Yanely stew Fenugreek 500 MG oral Capsule 08-13 10:03: 24 Yes 2{capsu le} Take 2 capsules by mouth 2 times daily Yanely Jarrett Delavan-3 Fatty Acids (Fish Oil Concentrate ) 300 MG oral Capsule 08-13 10:03: 24 Yes [id number] 1{capsu le} Take 1 capsule by mouth daily Yanely Seybold Potassium 99 MG oral Tablet 08-09 10:52: 24 Yes 1{tbl} Take 1 tablet by mouth daily Yanely ybold GLUCOSAMINE -FISH OIL-EPA-DHA OR 08-09 10:52: 24 Yes 1{capsu le} Take 1 capsule by mouth daily Yanely ybold Aspirin 81 MG oral Capsule 08-09 10:52: 24 Yes 1{capsu le} Take 1 capsule by mouth daily Yanely Seybold Magnesium Citrate oral Solution 08-09 10:52: 24 Yes 296mL Take 296 mL by mouth once Yanely Jarrett Fenugreek 500 MG oral Capsule 08-09 10:52: 24 Yes 2{capsu le} Take 2 capsules by mouth 2 times daily Yanely Jarrett Delavan-3 Fatty Acids (Fish Oil Concentrate ) 300 MG oral Capsule 08-09 10:52: 24 Yes [id number] 1{capsu le} Take 1 capsule by mouth daily Yanely Jarrett Insulin Aspart (NovoLOG) 100 UNIT/ML subcutaneou s Solution 08-09 00:00: 00 Yes [id number] 15 units SQ before major meals TID Yanely Jarrett Empaglifloz in (Jardiance) 10 MG oral Tablet 08-09 00:00: 00 Yes [id number] 1 tablet po Q daily Yanely Jarrett Gabapentin 100 MG oral Capsule 08-09 00:00: 00 Yes [id number] 100mg Take 1 capsule (100 mg total) by mouth 3 times daily Yanely Jarrett Insulin Glargine (Basaglar KwikPen) 100 UNIT/ML subcutaneou s Solution Pen-injecto r 08-09 00:00: 00 Yes [id number] 85 units SQ nightly Yanely Jarrett Insulin Pen Needle 31G X 5 MM does not apply [facility] 08-09 00:00: 00 Yes [id number] Takes insulin QID Yanely Jarrett GlipiZIDE 10 MG oral TABLET SR 24 HR 08-09 00:00: 00 Yes [id number] 10mg Take 1 tablet (10 mg total) by mouth in the morning. Yanely Jarrett Insulin Aspart (NovoLOG) 100 UNIT/ML subcutaneou s Solution 08-09 00:00: 00 Yes [id number] 15 units SQ before major meals TID Yanely Jarrett - Externa l Allopurinol 100 MG oral Tablet 08-03 00:00: 00 Yes [id number] 100mg Take 1 tablet (100 mg total) by mouth daily Yanely Jarrett Pravastatin Sodium 40 MG oral Tablet 08-03 00:00: 00 Yes [id number] TAKE ONE TABLET BY MOUTH EVERY NIGHT [...] 07-02 14:15: 00 07-02 14:29 :00 No [id number] 1.25mg Yanely Jarrett Potassium 99 MG oral [...] by mouth 2 times daily Yanely Jarrett Delavan-3 Fatty Acids (Fish Oil Concentrate ) 300 MG oral Capsule 07-02 08:24: 50 Yes [id number] 1{capsu le} Take 1 capsule by mouth daily Yanely Jarrett Bevacizumab (AVASTIN) 100 mg/4 mL - Physician Administere d ([id number]) 2020-06 14:45: 00 05-21 14:34 :00 No [id number] 1.25mg Yanely Binghamold Potassium 99 MG oral Tablet 2020-06 08:04: 02 Yes 1{tbl} Take 1 tablet by mouth daily Yanely Jarrett GLUCOSAMINE -FISH OIL-EPA-DHA OR 2020-06 08:04: 02 Yes 1{capsu le} Take 1 capsule by mouth daily Yanely Jarrett Aspirin 81 MG oral Capsule 2020-06 08:04: 02 Yes 1{capsu le} Take 1 capsule by mouth daily Yanely stew Magnesium Citrate oral Solution 2020-06 08:04: 02 Yes 296mL Take 296 mL by mouth once Yanely Jarrett Fenugreek 500 MG oral Capsule 2020-06 08:04: 02 Yes 2{capsu le} Take 2 capsules by mouth 2 times daily Yanely Jarrett Delavan-3 Fatty Acids (Fish Oil Concentrate ) 300 MG oral Capsule 2020-06 08:04: 02 Yes [id number] 1{capsu le} Take 1 capsule by mouth daily Yanely Jarrett Allopurinol 100 MG oral Tablet 2020-06 00:00: 00 Yes [id number] 100mg Take 1 tablet (100 mg total) by mouth daily Yanely Jarrett Gabapentin 100 MG oral Capsule 2020-06 00:00: 00 Yes 100mg Take 1 capsule (100 mg total) by mouth 3 times daily Yanely Jarrett Bevacizumab (AVASTIN) 100 mg/4 mL - Physician Administere d ([id number]) 2020-06 14:15: 00 04-23 14:19 :00 No [id number] 1.25mg Yanely Jarrett Potassium 99 MG oral [...] by mouth 2 times daily Yanely Jarrett Delavan-3 Fatty Acids (Fish Oil Concentrate ) 300 MG oral Capsule 2020-06 08:17: 22 Yes [id number] 1{capsu le} Take 1 capsule by mouth daily Yanely Jarrett Allopurinol 100 MG oral Tablet 2020-06 08:17: 22 Yes [id number] 100mg Take 100 mg by mouth daily Yanely Jarrett Bevacizumab (AVASTIN) 100 mg/4 mL - Physician Administere d ([id number]) 2020-06 14:30: 00 03-19 14:23 :00 No [id number] 1.25mg Yanely Jarrett Potassium 99 MG oral [...] by mouth 2 times daily Yanely Jarrett Delavan-3 Fatty Acids (Fish Oil Concentrate ) 300 MG oral Capsule 2020-06 09:06: 12 Yes [id number] 1{capsu le} Take 1 capsule by mouth daily Yanely Jarrett Allopurinol 100 MG oral Tablet 2020-06 09:06: 12 Yes [id number] 100mg Take 100 mg by mouth daily Yanely Jarrett Insulin Aspart (NovoLOG) 100 UNIT/ML subcutaneou s Solution 2020-06 013 00:00: 00 08-09 00:00 :00 No [id number] 15 units SQ before major meals TID Yanely Jarrett Insulin Glargine (Basaglar KwikPen) 100 UNIT/ML subcutaneou s Solution Pen-injecto r 2020-06 012 00:00: 00 08-09 00:00 :00 No 85 [...] by mouth 2 times daily Yanely Jarrett Delavan-3 Fatty Acids (Fish Oil Concentrate ) 300 MG oral Capsule 2020-06 14:59: 04 Yes [id number] 1{capsu le} Take 1 capsule by mouth daily Yanely Jarrett Allopurinol 100 MG oral Tablet 2020-06 14:59: 04 Yes [id number] 100mg Take 100 mg by mouth daily Yanely Jarrett Insulin Glargine, 1 Unit Dial, (Touezinab SoloStar) 300 UNIT/ML subcutaneou s Solution Pen-injecto r 2020-06 00:00: 00 Yes [id number] 80 units SQ once nightly at bedtime Yanely Jarrett Insulin Aspart (NovoLOG FlexPen) 100 UNIT/ML subcutaneou s Solution Pen-injecto r 2020-06 00:00: 00 Yes [id number] 15 units SQ before major meals TID Yanely Jarrett Pravastatin Sodium 40 MG oral Tablet 2020-06 00:00: 00 Yes [id number] 40mg Take 1 tablet (40 mg total) by mouth nightly Yanely Jarrett Insulin Pen Needle 31G X 5 MM does not apply [facility] 2020-06 00:00: 00 08-09 00:00 :00 No [id number] Takes insulin QID Yanely Jarrett Empaglifloz in (Jardiance) 10 MG oral Tablet 2020-06 00:00: 00 08-09 00:00 :00 No [id number] 1 tablet po Q daily Yanely Jarertt Na Sulfate-K Sulfate-Mg Sulf (Suprep Bowel Prep [...] MCG oral Capsule 02-17 00:00: 00 Yes [id number] 145ug Take 1 capsule (145 mcg total) by mouth daily Yanely Jarrett Sod Picosulfate -Mag Ox-Cit Acd (Clenpiq) 10-3.5-12 MG-GM -GM/160ML oral Solution 02-17 00:00: 00 Yes [id number] Instructio n given to patient in clinic. Use as directed by provider during office visit. Yanely Jarrett Bevacizumab (AVASTIN) 100 mg/4 mL - Physician Imelda thomas ([id number]) 02-12 19:15: 00 02-12 19:17 :00 No [id number] 1.25mg Yanely Jarrett SitaGLIPtin -MetFORMIN HCl 50-1000 [...] mouth 2 (two) times daily with meals. [facility] SITagliptin -metformin (JANUMET XR) 50-1,000 mg per tablet 06-19 11:36: 23 Yes 2{tbl} Take 2 tablets by mouth at bedtime. [facility] primidone 50 mg tablet 06-19 11:20: 29 Yes 50mg Take 50 mg by mouth 2 (two) times daily. [facility] amitriptyli ne 10 mg tablet 06-19 11:20: 29 Yes 10mg Take 10 mg by mouth daily. [facility] allopurinol 100 mg tablet 06-19 11:20: 29 Yes 100mg Take 100 mg by mouth daily. [facility] insulin glargineglorec.anlog (ANTOINETTEUZEINAB MAX U-300 SOLOSTAR SC) 06-19 11:20: 29 Yes 80U inject 80 Units under the skin every morning. [facility] pravastatin 40 mg tablet 06-19 00:00: 00 Yes [id number] 40mg Take 1 tablet by mouth at bedtime. [facility] hydrALAZINE HCl 50 MG oral Tablet 06-19 00:00: 00 Yes 50mg Q.[id number] 3D Take 1 tablet (50 mg total) [...] 06-19 00:00: 00 08-18 00:00 :00 No [id number] .1mg Take 1 tablet by mouth 2 (two) times daily. [facility] cloNIDine 0.1 mg tablet 06-16 00:00: 00 06-19 00:00 :00 No .1mg Take 1 tablet by mouth 2 (two) times daily. Need appointmen t and EKG for further refills. Please contact office. [facility] furosemide 40 mg tablet 06-16 00:00: 00 06-19 00:00 :00 No 40mg Take 1 tablet by mouth daily. [facility] gabapentin 100 mg capsule 06-10 00:00: 00 Yes 3 (three) times daily. [facility] pravastatin 40 mg tablet 2019-06 2-16 00:00: 00 06-19 00:00 :00 No [id number] 40mg Take 1 tablet by mouth at bedtime. [facility] hydrALAZINE 50 mg tablet 5-18 00:00: 00 06-19 00:00 :00 No 50mg Take 1 tablet by mouth every 8 (eight) hours. [facility] Immunizations Ordered Immunization Name Filled Immunization Name [...] Pf, 100 Mcg/0.5ml,IM 2020-09-09 00:00:00 Completed Yanely Binghamold Covid-19 Vaccine (Moderna), Mrna-lnp, Jesse Protein, Pf, 100 Mcg/0.5ml,IM 2020-09-09 00:00:00 Completed Yanely Binghamold Covid-19 Vaccine Moderna (Spikevax), Mrna-lnp, Jesse Protein, Pf 2020-09-09 00:00:00 Completed Yanely Seybold Covid-19 Vaccine Moderna (Spikevax), Mrna-lnp, Jesse Protein, Pf 2020-09-09 00:00:00 Completed Yanely Sealexold Covid-19 Vaccine Moderna (Spikevax), Mrna-lnp, Jesse Protein, Pf 2020-09-09 00:00:00 Completed Yanely Zacheryold Covid-19 Vaccine Moderna (Spikevax), Mrna-lnp, Jesse Protein, Pf 2020-09-09 00:00:00 Completed Yanely Binghamold Covid-19 Vaccine Moderna (Spikevax), Mrna-lnp, Jesse Protein, Pf 2020-09-09 00:00:00 Completed Yanely Binghamold Covid-19 Vaccine (Moderna), Mrna-lnp, Jesse Protein, Pf, 100 Mcg/0.5ml,IM 2020-09-09 00:00:00 Completed Yanely Binghamold Covid-19 Vaccine Moderna (Spikevax), Mrna-lnp, Jesse Protein, Pf 2020-09-09 00:00:00 Completed Yanely ybold - External Covid-19 Vaccine Moderna (Spikevax), Mrna-lnp, [...] Jesse Protein, Pf 2020-08-12 00:00:00 Completed Yanely Ahmadiybold - External Covid-19 Vaccine Moderna (Spikevax), Mrna-lnp, [...] External Influenza Virus Vaccine 2020-04-05 00:00:00 Completed [facility] Influenza Virus Vaccine 2020-04-05 00:00:00 Completed [facility] Influenza Virus Vaccine 2020-04-05 00:00:00 Completed [facility] Influenza Virus Vaccine 2020-04-05 00:00:00 Completed [facility] Influenza Virus Vaccine 2020-04-05 00:00:00 Completed [facility] Influenza Virus Vaccine 2020-04-05 00:00:00 Completed [facility] Influenza Virus Vaccine 2020-04-05 00:00:00 Completed [facility] Influenza Virus Vaccine 2020-04-05 00:00:00 Completed [facility] Influenza Virus Vaccine 2020-04-05 00:00:00 Completed [facility] Influenza Virus Vaccine 2020-04-05 00:00:00 Completed [facility] Influenza Virus Vaccine Quad .5 mL IM 6+ MO 2019-04-10 00:00:00 Completed [facility] Pneumococcal Polysaccharide, PPSV23 (PNEUMOVAX) 2019-04-10 00:00:00 Completed [facility] Influenza Virus Vaccine Quad .5 mL IM 6+ MO 2019-04-10 00:00:00 Completed [facility] Pneumococcal Polysaccharide, PPSV23 (PNEUMOVAX) 2019-04-10 00:00:00 Completed [facility] Influenza Virus Vaccine Quad .5 mL IM 6+ MO 2019-04-10 00:00:00 Completed [facility] Pneumococcal Polysaccharide, PPSV23 (PNEUMOVAX) 2019-04-10 00:00:00 Completed [facility] Influenza Virus Vaccine Quad .5 mL IM 6+ MO 2019-04-10 00:00:00 Completed [facility] Pneumococcal Polysaccharide, PPSV23 (PNEUMOVAX) 2019-04-10 00:00:00 Completed [facility] Influenza Virus Vaccine Quad .5 mL IM 6+ MO 2019-04-10 00:00:00 Completed [facility] Pneumococcal Polysaccharide, PPSV23 (PNEUMOVAX) 2019-04-10 00:00:00 Completed [facility] Influenza Virus Vaccine Quad .5 mL IM 6+ MO 2019-04-10 00:00:00 Completed [facility] Pneumococcal Polysaccharide, PPSV23 (PNEUMOVAX) 2019-04-10 00:00:00 Completed [facility] Influenza Virus Vaccine Quad .5 mL IM 6+ MO 2019-04-10 00:00:00 Completed [facility] Pneumococcal Polysaccharide, PPSV23 (PNEUMOVAX) 2019-04-10 00:00:00 Completed [facility] Influenza Virus Vaccine Quad .5 mL IM 6+ MO 2019-04-10 00:00:00 Completed [facility] Pneumococcal Polysaccharide, PPSV23 (PNEUMOVAX) 2019-04-10 00:00:00 Completed [facility] Influenza Virus Vaccine Quad .5 mL IM 6+ MO 2019-04-10 00:00:00 Completed [facility] Pneumococcal Polysaccharide, PPSV23 (PNEUMOVAX) 2019-04-10 00:00:00 Completed [facility] Influenza Virus Vaccine, No Preserv, age 6 months and up 2019-04-10 00:00:00 Completed Yanely Seybold - External Pneumococcal Vaccine, Polysaccharide 2019-04-10 00:00:00 Completed Yanely Seybold - External Influenza Virus Vaccine, No Preserv, age 6 months and up 2019-04-10 00:00:00 Completed Yanely Seybold Pneumococcal Vaccine, Polysaccharide 2019-04-10 00:00:00 Completed Yanely Seybold Influenza Virus Vaccine Quad .5 mL IM 6+ MO 2019-04-10 00:00:00 Completed [facility] Influenza Virus Vaccine, No Preserv, age 6 [...] Pneumococcal Polysaccharide, PPSV23 (PNEUMOVAX) 2019-04-10 00:00:00 Completed [facility] Covid-19 Vaccine Moderna (Spikevax), Mrna-lnp, Jesse Protein, [...] Injectable, Mdck, Quadrivalent With Preservative Unknown Completed Yanelybozena Jarrett - External Covid-19 Vaccine Moderna (Spikevax), Mrna-lnp, Jesse Protein, Pf Unknown Completed Yanelybozena Jarrett - External Influenza Virus Vaccine, No Preserv, age 6 months and up Unknown Completed Yanely Oziel matiasbold - External Influenza Virus Vaccine, Unspecified Formulation Unknown Completed Yanelybozena Jarrett - External Pneumococcal Vaccine, Polysaccharide Unknown Completed Yanely Lopes d - External Influenza Virus Vaccine, age 6 months and up Unknown Completed Yanely Jarrett - External COVID-19 VACCINE PFIZER 12+ ([place]an cap) Unknown Completed Yanelybozena Jarrett - External Pneumococcal Conjugate 15 (Vaxneuvance) Unknown Completed Yanely Luiza - External Influenza, Injectable, Mdck, Quadrivalent With Preservative Unknown Completed Yanely Luiza - External AFLURIA TRIVALENT MDV Unknown Completed Yanelybozena Jarrett - External COVID-19 Vaccine(Pfizer)(12yr s+) Unknown Completed Yanely Luiza - External Vital Signs Vital Name Observation Time Observation Value Comments S ource Systolic blood pressure 2024-07-04 16:09:00 146 mm[Hg] Yanelybozena Jarrett - External Diastolic blood pressure 2024-07-04 16:09:00 80 mm[Hg] Yanelybozena Jarrett - External Heart rate 2024-07-04 16:01:00 86 /min Yanelybozena Jarrett - External Body temperature 2024-07-04 16:01:00 36.78 Peggy Yanelybozena Jarrett - External Respiratory rate 2024-07-04 16:01:00 20 /min Yanely Luiza - External Body height 2024-07-04 16:01:00 188 cm Yanely Sealexemmanuel - External Body weight 2024-07-04 16:01:00 164.202 kg Yanely Luiza - External BMI 2024-07-04 16:01:00 46.48 kg/m2 Yanely alexemmanuel - External Oxygen saturation in Arterial blood by Pulse oximetry 2024-07-04 16:01:00 100 /min Yanely Luiza - External Systolic blood pressure 2023-08-29 14:46:00 140 mm[Hg] Yanely ybold - External Diastolic blood pressure 2023-08-29 14:46:00 72 mm[Hg] Yanely Seybold - External Body temperature 2023-08-29 14:46:00 36.61 Peggy Yanely Seybold - External Respiratory rate 2023-08-29 14:46:00 20 /min Yanely Ahmadiybold - External Body height 2023-08-29 14:46:00 188 [...] External Body temperature 2023-06-15 17:42:00 36.94 Peggy Ynaely Seybold - External Respiratory rate 2023-06-15 17:42:00 18 /min Yanely Ahmadiybold - External Body height 2023-06-15 17:42:00 188 [...] Respiratory rate 2023-05-30 14:04:00 18 /min Yanely Ahmadiybold - External Body height 2023-05-30 14:04:00 188 cm Yanely Ahmadiybold - External Body weight 2023-05-30 14:04:00 156.718 kg Yanely Seybold - External BMI 2023-05-30 14:04:00 44.36 kg/m2 Yanely Ahmadiybold - External Oxygen saturation in Arterial blood by Pulse oximetry 2023-05-30 14:04:00 99 /min Yanely Ahmadiybold - External Body weight 2023-05-16 19:55:00 150.141 [...] Body temperature 2023-05-15 14:32:00 36.78 Peggy Yanely Ahmadiybold - External Respiratory rate 2023-05-15 14:32:00 18 /min Yanely Ahmadiybold - External Body height 2023-05-15 14:32:00 188 cm Yanely Ahmadiybold - External Body weight 2023-05-15 14:32:00 155.13 kg Yanely Ahmadiybold - External BMI 2023-05-15 14:32:00 43.91 kg/m2 Yanely Ahmadiybold - External Oxygen saturation in Arterial blood [...] Respiratory rate 2023-05-01 16:34:00 22 /min Yanely Ahmadiybold - External Body height 2023-05-01 16:34:00 188 cm Yanely Seybold - External Body weight 2023-05-01 16:34:00 156.945 kg Yanely Seybold - External BMI 2023-05-01 16:34:00 44.42 kg/m2 Yanely Ahmadiybold - External Oxygen saturation in Arterial blood by Pulse oximetry 2023-05-01 16:34:00 97 /min Yanely Ahmadiybold - External Body weight 2023-04-18 20:08:00 150.3 [...] Body height 2023-01-23 14:07:00 188 cm Yanely Ahmadiybold - External Body weight 2023-01-23 14:07:00 165.563 [...] 19:57:00 46.99 kg/m2 Yanely Seybold - External BMI 2022-05-16 16:46:00 46.73 kg/m2 Yanely Seybold - External Systolic blood pressure 2022-05-16 16:46:00 194 mm[Hg] Yanely Seybold - External Diastolic blood pressure 2022-05-16 16:46:00 93 mm[Hg] Yanely Seybold - External Heart rate 2022-05-16 16:46:00 64 /min Yanely Ahmadiybold - External Body temperature 2022-05-16 16:46:00 36.67 Peggy Yanely Ahmadiybold - External Respiratory rate 2022-05-16 16:46:00 18 /min Yanely Binghamold - External Body height 2022-05-16 16:46:00 188 cm Yanely Binghamold - External Body weight 2022-05-16 16:46:00 165.109 kg Yanely Ahmadiybold - External Systolic blood pressure 2021-08-25 12:58:00 148 mm[Hg] Yanely Seybold Diastolic blood pressure 2021-08-25 12:58:00 78 mm[Hg] Yanely Seybold Heart rate 2021-08-25 12:58:00 78 /min Yanely Seybold Body temperature 2021-08-25 12:58:00 35.67 Peggy Yanely Ahmadiybold Respiratory rate 2021-08-25 12:58:00 16 /min Yanely Binghamold Body height 2021-08-25 12:58:00 188 cm Yanely Jarrett Body weight 2021-08-25 12:58:00 160.12 kg Yanely Ahmadiybemmanuel BMI 2021-08-25 12:58:00 45.32 kg/m2 Yanely Ahmadiybold Oxygen saturation in Arterial blood by Pulse oximetry 2021-08-25 12:58:00 100 /min Yanely Ahmadiybold Systolic blood pressure 2021-08-09 16:54:00 162 mm[Hg] Yanely Seybold Diastolic blood pressure 2021-08-09 16:54:00 90 mm[Hg] Yanely Ahmadiybold Heart rate 2021-08-09 16:54:00 78 /min Yanely Ahmadiybold Body temperature 2021-08-09 16:54:00 36.61 Peggy Yanely Ahmadiybold Respiratory rate 2021-08-09 16:54:00 16 /min Yanely Binghamold Body height 2021-08-09 16:54:00 188 cm Yanely Jarrett Body weight 2021-08-09 16:54:00 156.491 kg Yanely Ahmadiybold BMI 2021-08-09 16:54:00 44.30 kg/m2 Yanely Seybold Oxygen saturation in Arterial blood by Pulse oximetry 2021-08-09 16:54:00 98 /min Ynaely Jarrett Systolic blood pressure 2021-03-15 19:49:00 180 mm[Hg] Yanely Jarrett Diastolic blood pressure 2021-03-15 19:49:00 106 mm[Hg] [...] blood pressure 2021-02-17 19:51:00 163 mm[Hg] Yanely Jarrett Diastolic blood pressure 2021-02-17 19:51:00 92 mm[Hg] Yanely Jarrett Heart rate 2021-02-17 19:51:00 72 /min Yanely Jarrett Body temperature 2021-02-17 19:51:00 36.78 Peggy Yanely Jarrett Respiratory rate 2021-02-17 19:51:00 16 /min Yanely Jarrett Body height 2021-02-17 19:51:00 185.4 cm Yanely Jarrett Body weight 2021-02-17 19:51:00 154.223 kg Yanely Jarrett BMI 2021-02-17 19:51:00 44.86 kg/m2 Yanely Jarrett Systolic blood pressure 2020-06-19 17:39:00 156 mm[Hg] [facility] Diastolic blood pressure 2020-06-19 17:39:00 92 mm[Hg] [facility] Heart rate 2020-06-19 17:31:00 86 /min [facility] Respiratory rate 2020-06-19 17:31:00 19 /min [facility] Body height 2020-06-19 17:31:00 185.4 cm [facility] Body weight 2020-06-19 17:31:00 150.685 kg [facility] BMI 2020-06-19 17:31:00 43.83 kg/m2 [facility] Oxygen saturation in Arterial blood by Pulse oximetry 2020-06-19 17:31:00 95 /min [facility] Procedures Procedure Date / Time Performed Performing Clinician Source AUTHORIZATION FOR RELEASE OF PHI 2022-06-02 06:01:00 Doctor Unassigned, Edgar [facility] REAGENT STRIP/BLOOD GLUCOSE 2022-05-16 00:00:00 Outside, Reported Yanely Jarrett - External AUTHORIZATION FOR RELEASE OF PHI 2022-05-03 06:01:00 Doctor Unassigned, Edgar [facility] AUTHORIZATION FOR RELEASE OF PHI 2022-04-27 06:01:00 Doctor Unassigned, Edgar [facility] REAGENT STRIP/BLOOD GLUCOSE 2021-08-09 16:57:00 Krystyna Johnson REAGENT STRIP/BLOOD GLUCOSE 2021-03-15 20:00:00 Krytsyna Johnson MEDICAL RELEASE/CLEARANCE FORMS 2021-02-22 05:01:00 Doctor Unassigned, Edgar [facility] NM ELECTROCARDIOGRAM, COMPLETE 2020-06-19 17:36:18 Domenica Arias [facility] Encounters Start Date/Time End Date/Time Encounter Type Admission Type Attending [facility] Care Department Encounter ID Source 2024-09-27 00:00:00 2024-09-27 00:00:00 Outpatient GAVIOTA COSTA [id number] Yanely stew 2024-09-17 00:00:00 2024-09-17 00:00:00 Outpatient GAVIOTA COSTA [id number] Yanely Jarrett 2024-09-04 00:00:00 2024-09-04 00:00:00 Outpatient GAVIOTA COSTA [id number] Yanely Jarrett 2024-09-02 00:00:00 2024-09-02 00:00:00 Outpatient GAVIOTA COSTA [id number] Yanely Jarrett 2024-08-30 00:00:00 2024-08-30 00:00:00 Outpatient GAVIOTA COSTASEY YANELY [id number] Yanely Seybemmanuel 2024-08-21 00:00:00 2024-08-21 00:00:00 Outpatient PREZAS, DAX YANELY BRUCE [id number] Yanely Seybemmanuel 2024-08-21 00:00:00 2024-08-21 00:00:00 Outpatient JENNIFERLETHA GONZALEZ YANELY BRUCE [id number] [facility] 2024-08-14 00:00:00 2024-08-14 00:00:00 Outpatient KRYSTYNA JOHNSON YANELY BRUCE [id number] [facility] 2024-08-14 00:00:00 2024-08-14 00:00:00 Outpatient JENNIFER, LETHA YANELY BRUCE [id number] [facility] 2024-08-14 00:00:00 2024-08-14 00:00:00 Outpatient PREZAS, DAX YANELY BRUCE [id number] [facility] 2024-08-08 00:00:00 2024-08-08 00:00:00 Outpatient YANELY BRUCE [id number] [facility] 2024-07-28 00:00:00 2024-07-28 00:00:00 Outpatient ELIZABETH, KRYSTYNA YANELY BRUCE [id number] [facility] 2024-07-17 13:30:00 2024-07-17 13:30:00 Outpatient ANA LAURA MARTE YANELY BRUCE [id number] [facility] 2024-07-11 00:00:00 2024-07-11 00:00:00 Outpatient COSTA, GAVIOTA BRUCE [id number] Yanely Seybold 2024-07-09 00:00:00 2024-07-09 00:00:00 Outpatient PREZAS, DAX BRUCE [id number] Yanely Seybold 2024-07-08 00:00:00 2024-07-08 00:00:00 Outpatient COSTA, GAVIOTA BRUCE [id number] Yanely Seybold 2024-07-05 14:30:00 2024-07-05 14:30:00 Outpatient COSTA, GAVIOTA BRUCE [id number] Yanely Ahmadiybemmanuel 2024-07-04 11:00:00 2024-07-04 11:00:00 Outpatient QSY210Samantha WHITEBOZENA BRUCE [id number] Yanely Seybemmanuel 2024-07-04 10:00:00 2024-07-04 10:00:00 Outpatient GAVIOTA COSTA YANELY YANELY [id number] Yanely Ahmadiybemmanuel 2024-07-04 00:00:00 2024-07-04 00:00:00 Outpatient YANELY BRUCE [id number] Yanely Seybold 2024-07-03 08:00:00 2024-07-03 08:00:00 Outpatient GAVIOTA COSTA YANELY BRUCE [id number] Yanely Seybold 2024-06-26 10:30:00 2024-06-26 10:30:00 Outpatient PREZAS, DAX YANELY BRUCE [id number] Yanely Seybemmanuel 2024-05-31 00:00:00 2024-05-31 00:00:00 Outpatient LETHA RODRIGUEZ [id number] [facility] 2024-05-24 14:30:00 2024-05-24 14:30:00 Outpatient MEG KENJIPHUC BRUCE [id number] Yanely Seybold 2024-05-21 00:00:00 2024-05-21 00:00:00 Outpatient PREZAS, DAX YANELY BRUCE [id number] Yanely Seybold 2024-05-14 00:00:00 2024-05-14 00:00:00 Outpatient PREALICIA HARRISAND YANELY BRUCE [id number] Yanely Seybold 2024-04-26 00:00:00 2024-04-26 00:00:00 Outpatient YANELY BRUCE [id number] Yanely Seybold 2024-04-19 00:00:00 2024-04-19 00:00:00 Outpatient PREALICIA HARRISAND YANELY BRUCE [id number] Yanely Seybold 2024-03-25 00:00:00 2024-03-25 00:00:00 Outpatient YANELY BRUCE [id number] Yanely Seybold 2024-02-27 00:00:00 2024-02-27 00:00:00 Outpatient PREZAS, DAX YANELY BRUCE [id number] Yanely Seybold 2024-02-27 00:00:00 2024-02-27 00:00:00 Outpatient ISABELL, CARLOS YANELY BRUCE [id number] Yanely Seybold 2024-02-27 00:00:00 2024-02-27 00:00:00 Outpatient LETHA RODRIGUEZ YANELY BRUCE [id number] Yanely Seybold 2024-02-18 00:00:00 2024-02-18 00:00:00 Outpatient ISABELLCARLOS YANELY BRUCE [id number] Yanely Seybold 2024-02-11 00:00:00 2024-02-11 00:00:00 Outpatient PREZAS, DAX YANELY BRUCE [id number] Yanely Seybold 2024-01-11 00:00:00 2024-01-11 00:00:00 Outpatient PREZAS, DAXMAU BRUCE [id number] Yanely Seybold 2024-01-11 00:00:00 2024-01-11 00:00:00 Outpatient KRYSTYNA JOHNSON [id number] Yanely Seybold 2024-01-04 08:45:00 2024-01-04 08:45:00 Outpatient PREZAS, DAX YANELY BRUCE [id number] Yanely Seybold 2023-12-08 00:00:00 2023-12-08 00:00:00 Outpatient KRYSTYNA JOHNSON [id number] Yanely Seybold 2023-11-29 08:30:00 2023-11-29 08:30:00 Outpatient PREZAS, DAX YANELY BRUCE [id number] Yanely Seybold 2023-11-27 00:00:00 2023-11-27 00:00:00 Outpatient CARLOS NOEL YANELY BRUCE [id number] Yanely Seybold 2023-11-27 00:00:00 2023-11-27 00:00:00 Outpatient PREZAS, DAX BRUCE [id number] Yanely Seybold 2023-10-28 00:00:00 2023-10-28 00:00:00 Outpatient KRYSTYNA JOHNSON YANELY [id number] Yanely Seybemmanuel 2023-09-14 00:00:00 2023-09-14 00:00:00 Outpatient YANELY BRUCE [id number] Yanely Seybemmanuel 2023-09-10 00:00:00 2023-09-10 00:00:00 Outpatient LETHA RODRIGUEZ [id number] Yanely Seybold 2023-08-31 00:00:00 2023-08-31 00:00:00 Outpatient PREZASDAX YANELY BRUCE [id number] Yanely Seybemmanuel 2023-08-29 10:20:00 2023-08-29 10:20:00 Outpatient LAB90 YANELY BRUCE [id number] Yanely Seybold 2023-08-29 09:30:00 2023-08-29 09:30:00 Outpatient PREZAS, DAX YANELY BRUCE [id number] Yanely Seybold 2023-08-29 00:00:00 2023-08-29 00:00:00 Outpatient PREZASDAX YANELY BRUCE [id number] Yanely Seybemmanuel 2023-08-07 08:45:00 2023-08-07 08:45:00 Outpatient KRYSTYNA JOHNSON YANELY BRUCE [id number] Yanely Seybemmanuel 2023-06-27 16:45:00 2023-06-27 16:45:00 Outpatient PREZASDAX YANELY BRUCE [id number] Yanely Seybold 2023-06-26 00:00:00 2023-06-26 00:00:00 Outpatient MD YANELY BALLARD [id number] Yanely Seybold 2023-06-26 00:00:00 2023-06-26 00:00:00 Outpatient LETHA RODRIGUEZ [id number] Yanely Seybold 2023-06-15 11:45:00 2023-06-15 11:45:00 Outpatient PREZASDAX YANELY BRUCE [id number] Yanely Seybold 2023-06-15 00:00:00 2023-06-15 00:00:00 Outpatient YANELY BRUCE [id number] Yanely Seybold 2023-06-15 00:00:00 2023-06-15 00:00:00 Outpatient PREZADAX LudwigBOZENA BRUCE [id number] Yanely Seybemmanuel 2023-06-15 00:00:00 2023-06-15 00:00:00 Outpatient YANELY BRUCE [id number] Yanely Seybold 2023-06-14 00:00:00 2023-06-14 00:00:00 Outpatient LETHA RODRIGUEZ YANELY BRUCE [id number] Yanely Seybold 2023-06-14 00:00:00 2023-06-14 00:00:00 Outpatient KRYSTYNA JOHNSON YANELY BRUCE [id number] Yanely Seybold 2023-06-12 00:00:00 2023-06-12 00:00:00 Outpatient PREZADAX Ludwig YANELY BRUCE [id number] Yanely Seybemmanuel 2023-06-12 00:00:00 2023-06-12 00:00:00 Outpatient [facility] [id number] [facility]23-06-07 00:00:00 2023-06-07 00:00:00 Outpatient PREZADAX Ludwig YANELY BRUCE [id number] Yanely Seybold 2023-05-30 08:15:00 2023-05-30 08:15:00 Outpatient PREZADAX Ludwig YANELY BRUCE [id number] Yanely Seybold 2023-05-30 00:00:00 2023-05-30 00:00:00 Outpatient DAX PRADO YANELY BRUCE [id number] Yanely Seybemmanuel 2023-05-16 14:00:00 2023-05-16 14:00:00 Outpatient LARA ROGERS YANELY BRUCE [id number] Yanely Seybold 2023-05-16 00:00:00 2023-05-16 00:00:00 Outpatient JACKY MATHEW [id number] Yanely Seybold 2023-05-15 08:30:00 2023-05-15 08:30:00 Outpatient JACKY MATHEW [id number] Yanely Seybold 2023-05-15 00:00:00 2023-05-15 00:00:00 Outpatient MD YANELY BALLARD [id number] [facility] 2023-05-12 00:00:00 2023-05-12 00:00:00 Outpatient JACKY MATHEW YANELY BRUCE [id number] [facility] 2023-05-10 00:00:00 2023-05-10 00:00:00 Outpatient YANELY BRUCE [id number] [facility] 2023-05-03 00:00:00 2023-05-03 00:00:00 Outpatient DAX PRADO YANELY BRUCE [id number] [facility] 2023-05-01 10:30:00 2023-05-01 10:30:00 Outpatient ALICIA PRADOMAU BRUCE [id number] [facility] 2023-05-01 09:45:00 2023-05-01 09:45:00 Out[facility] [id number] [facility] 00:00:00 2023-05-01 00:00:00 Outpatient DAX PRADO YANELY BRUCE [id number] [facility] 2023-04-25 09:30:00 2023-04-25 09:30:00 Outpatient DAX PRADO YANELY BRUCE [id number] Yanely [facility] 2023-04-18 14:00:00 2023-04-18 14:00:00 Outpatient ROGERSLARA BARRIOS YANELY BRUCE [id number] [facility] 2023-04-11 11:30:00 2023-04-11 11:30:00 Outpatient DAX PRADO YANELY BRUCE [id number] [facility] 2023-04-07 00:00:00 2023-04-07 00:00:00 Outpatient YANELY BRUCE [id number] [facility] 2023-04-04 00:00:00 2023-04-04 00:00:00 Outpatient YANELY BRUCE [id number] Yanely Seybold 2023-03-29 00:00:00 2023-03-29 00:00:00 Outpatient YANELY BRUCE [id number] Yanely Seybold 2023-03-27 00:00:00 2023-03-27 00:00:00 Outpatient KRYSTYNA JOHNSON YANELY BRUCE [id number] Yanely [facility] 2023-03-27 00:00:00 2023-03-27 00:00:00 Outpatient DAX PRADO YANELY BRUCE [id number] [facility] 2023-03-22 13:30:00 2023-03-22 13:30:00 Outpatient LARA ROGERS YANELY BRUCE [id number] Yanely [facility] 2023-03-22 00:00:00 2023-03-22 00:00:00 Outpatient YANELY BRUCE [id number] Yanely [facility] 2023-03-22 00:00:00 2023-03-22 00:00:00 Outpatient BECCA RODRIGUEZAN YANELY BRUCE [id number] [facility] 2023-03-13 00:00:00 2023-03-13 00:00:00 Outpatient DAX PRADO YANELY BRUCE [id number] [facility] 2023-03-13 00:00:00 2023-03-13 00:00:00 Outpatient JENNIFERLETHA GONZALEZ [facility] [id number] [facility]23-03-03 08:40:00 2023-03-03 08:40:00 Outpatient YULISSAROGELIO CAMP YANELY BRUCE [id number] [facility] 2023-03-03 00:00:00 2023-03-03 00:00:00 Outpatient DAX PRADO [facility] [id number] [facility]23-[facility]-03 00:00:00 2023-03-03 00:00:00 Outpatient YANELY BRUCE [id number] [facility] 2023-02-26 00:00:00 2023-02-26 00:00:00 Outpatient KRYSTYNA JOHNSON YANELY BRUCE [id number] [facility] 2023-02-22 00:00:00 2023-02-22 00:00:00 Outpatient YANELY BRUCE [id number] [facility] 2023-02-20 00:00:00 2023-02-20 00:00:00 Outpatient YANELY YANELY [id number] Yanely [facility] 2023-02-20 00:00:00 2023-02-20 00:00:00 Outpatient PREZADAX Ludwig [facility] [id number] [facility]23-02-19 00:00:00 2023-02-19 00:00:00 Outpatient CARLOS NOEL YANELY BRUCE [id number] Yanely [facility] 2023-02-17 00:00:00 2023-02-17 00:00:00 Outpatient PREZADAX Ludwig YANELY BRUCE [id number] Yanely [facility] 2023-02-10 08:10:00 2023-02-10 08:10:00 Outpatient BENEDICTVanROGELIO CAMP YANELY BRUCE [id number] Yanely [facility] 2023-02-08 00:00:00 2023-02-08 00:00:00 Outpatient PREZAS, DAX [facility] [id number] [facility] 2023-02-08 00:00:00 2023-02-08 00:00:00 Outpatient PREZAS, DAX YNAELY BRUCE [id number] Yanely [facility] 2023-02-08 00:00:00 2023-02-08 00:00:00 Outpatient YANELY BRUCE [id number] Yanely [facility] 2023-02-07 00:00:00 2023-02-07 00:00:00 Outpatient PREZAS, DAX [facility] [id number] [facility] 2023-02-02 09:00:00 2023-02-02 09:00:00 Outpatient PARRISH HALE YANELY BRUCE [id number] [facility] 2023-02-02 00:00:00 2023-02-02 00:00:00 Outpatient YANELY BRUCE [id number] [facility] 2023-02-01 00:00:00 2023-02-01 00:00:00 Outpatient PREZAS, DAX YANELY BRUCE [id number] Yanely ybemmanuel 2023-01-31 08:40:00 2023-01-31 08:40:00 Outpatient LAB90 YANELY BRUCE [id number] [facility] 2023-01-30 09:00:00 2023-01-30 09:00:00 Outpatient TORRIE Payton YANELY YANELY [id number] Yanely Seybold 2023-01-30 08:50:00 2023-01-30 08:50:00 Outpatient ROGELIO OJEDA YANELY BRUCE [id number] Yanely Seybold 2023-01-25 00:00:00 2023-01-25 00:00:00 Outpatient LETHA RODRIGUEZ YANELY BRUCE [id number] Yanely Seybold 2023-01-23 09:15:00 2023-01-23 09:15:00 Outpatient PREZAOziel, DAX YANELY BRUCE [id number] [facility] 2023-01-16 10:45:00 2023-01-16 10:45:00 Outpatient KRYSTYNA JOHNSON YANELY BRUCE [id number] [facility] 2022-12-22 00:00:00 2022-12-22 00:00:00 Outpatient LETHA RODRIGUEZ YANELY BRUCE [id number] [facility] 2022-12-20 00:00:00 2022-12-20 00:00:00 Outpatient PREZAS, DAX YANELY BRUCE [id number] [facility] 2022-12-18 00:00:00 2022-12-18 00:00:00 Outpatient PREZAS, DAXMAU BRUCE [id number] Yanely Seybold 2022-12-16 09:50:00 2022-12-16 09:50:00 Outpatient LAB90 YANELY BRUCE [id number] Yanely Seybold 2022-12-16 09:00:00 2022-12-16 09:00:00 Outpatient PREZAS, DAXMAU BRUCE [id number] Yanely Seybold 2022-12-16 00:00:00 2022-12-16 00:00:00 Outpatient PREZAS, DAX BRUCE [id number] Yanely Seybold 2022-12-09 09:10:00 2022-12-09 09:10:00 Outpatient LAB90 YANELY BRUCE [id number] Yanely Seybold 2022-12-09 00:00:00 2022-12-09 00:00:00 Outpatient MD YANELY BALLARD [id number] Yanely Ahmadiybemmanuel 2022-11-18 15:15:00 2022-11-18 15:15:00 Outpatient PREKIMBERLY DAX BRUCE [id number] Yanely ybemmanuel 2022-11-14 00:00:00 2022-11-14 00:00:00 Outpatient LETHA RODRIGUEZ [id number] Yanely ybemmanuel 2022-11-09 00:00:00 2022-11-09 00:00:00 Outpatient LETHA RODRIGUEZ [id number] Yanely Luiza 2022-11-07 09:15:00 2022-11-07 09:15:00 Outpatient ELIZABETH KRYSTYNA BRUCE [id number] Yanely emmanuel 2022-10-25 00:00:00 2022-10-25 00:00:00 Outpatient KRYSTYNA JOHNSON [facility] [id number] [facility]-10-25 00:00:00 2022-10-25 00:00:00 Outpatient KRYSTYNA JOHNSON [facility]ELY BRU[facility] [id number] [facility] 2022-10-19 00:00:00 2022-10-19 00:00:00 Outpatient ALICIA PRADOMAU BURCE [id number] Yanely Ahmadiybemmanuel 2022-10-11 00:00:00 2022-10-11 00:00:00 Outpatient PREKIMBERLY DAX BRUCE [id number] Yanely Seybemmanuel 2022-10-07 08:10:00 2022-10-07 08:10:00 Outpatient LABKirti BRUCE [id number] [facility] 2022-10-04 00:00:00 2022-10-04 00:00:00 Outpatient PREASHLIOziel DAX BRUCE [id number] [facility] 2022-09-19 00:00:00 2022-09-19 00:00:00 Outpatient LETHA RODRIGUEZ [id number] [facility] 2022-09-14 00:00:00 2022-09-14 00:00:00 Outpatient LETHA RODRIGUEZ YANELY BRUCE [id number] Yanely Seybold 2022-08-25 00:00:00 2022-08-25 00:00:00 Outpatient KRYSTYNA JOHNSON YANELY BRUCE [id number] Yanely Seybold 2022-08-14 00:00:00 2022-08-14 00:00:00 Outpatient KRYSTYNA JOHNSON YANELY BRUCE [id number] Yanely Seybold 2022-08-04 00:00:00 2022-08-04 00:00:00 Outpatient LETHA RODRIGUEZ YANELY BRUCE [id number] Yanely Seybold 2022-07-25 15:00:00 2022-07-25 15:00:00 Outpatient MARICEL ROBYN BRUCE [id number] Yanely Seybold 2022-07-22 00:00:00 2022-07-22 00:00:00 Outpatient JENNIFERLETHA YANELY BRUCE [id number] Yanely Seybold 2022-07-21 14:00:00 2022-07-21 14:00:00 Outpatient AMBERJesus ROBYN BRUCE [id number] Yanely Seybold 2022-07-21 00:00:00 2022-07-21 00:00:00 Outpatient MARICEL ROBYN BRUCE [id number] Yanely Seybold 2022-07-11 00:00:00 2022-07-11 00:00:00 Outpatient YANELY BRUCE [id number] Yanely Seybold 2022-07-07 00:00:00 2022-07-07 00:00:00 Outpatient YANELY BRUCE [id number] Yanely Seybold 2022-06-28 00:00:00 2022-06-28 00:00:00 Outpatient DAX PRADO [id number] Yanely Seybold 2022-06-21 00:00:00 2022-06-21 00:00:00 Outpatient ELIZABETH KRYSTYNA BRUCE [id number] Yanely Seybold 2022-06-16 08:55:00 2022-06-16 08:55:00 Outpatient LAB90 YANELY BRUCE [id number] [facility] 2022-06-15 00:00:00 2022-06-15 00:00:00 Outpatient DAX PRADO YANELY BRUCE [id number] [facility] 2022-06-03 09:20:00 2022-06-03 09:20:00 Outpatient ROGELIO OJEDA YANELY BRUCE [id number] [facility] 2022-06-02 00:00:00 2022-06-02 00:00:00 Orders Only Doctor Unassigned, Edgar [facility] 1.2.840.114 350.1.13.10 4.2.7.2.686 [id number] [facility] 2022-05-18 00:00:00 2022-05-18 00:00:00 Outpatient LETHA RODRIGUEZ [id number] [facility] 2022-05-16 10:45:00 2022-05-16 10:45:00 Outpatient KRYSTYNA JOHNSON [id number] [facility] 2022-05-11 00:00:00 2022-05-11 00:00:00 Outpatient LETHA RODRIGUEZ [id number] [facility] 2022-05-11 00:00:00 2022-05-11 00:00:00 Outpatient YANELY BRUCE [id number] Yanely [facility] 2022-05-04 09:25:00 2022-05-04 09:25:00 Outpatient BEVERLY SMITH [id number] [facility] 2022-05-04 00:00:00 2022-05-04 00:00:00 Outpatient LETHA RODRIGUEZ [id number] [facility] 2022-05-03 00:00:00 2022-05-03 00:00:00 Orders Only Doctor Unassigned, Edgar [facility] 1.2.840.114 350.1.13.10 4.2.7.2.686 [id number] [facility] 2022-04-27 00:00:00 2022-04-27 00:00:00 Orders Only Doctor Unassigned, Edgar [facility] 1.2.840.114 350.1.13.10 4.2.7.2.686 [id number] [facility] 2022-04-22 08:50:00 2022-04-22 08:50:00 Outpatient JANEL OJEDAUA YANELY BRUCE [id number] Yanely [facility] 2022-04-21 09:10:00 2022-04-21 09:10:00 Outpatient BEVERLY SMITH [id number] Yanely [facility] 2022-04-11 00:00:00 2022-04-11 00:00:00 Outpatient LETHA RODRIGUEZ [id number] Yanely [facility] 2022-04-08 08:00:00 2022-04-08 08:00:00 Outpatient LABKirti BR[facility]CE [id number] [facility] 2022-04-08 00:00:00 2022-04-08 00:00:00 Outpatient DAX PRADO [id number] Yanely [facility] 2022-03-11 09:10:00 2022-03-11 09:10:00 Outpatient ROGELIO OJEDA [id number] Yanely [facility] 2022-03-10 09:05:00 2022-03-10 09:05:00 Outpatient TataTORRIE [id number] [facility] 2022-03-10 08:45:00 2022-03-10 08:45:00 Outpatient BULLOCKESИван BRUCE [id number] Yanely [facility] 2022 00:00:00 2022 00:00:00 Outpatient LETHA RODRIGUEZ [id number] Yanely [facility] 2022-03-03 08:25:00 2022-03-03 08:25:00 Outpatient LAB90 [facility] [id number] [facility] 2022-03-03 00:00:00 2022-03-03 00:00:00 Outpatient DAX PRAD[facility] [id number] [facility] 2022-02-25 09:00:00 2022-02-25 09:00:00 Outpatient JENNIFERLETHA GONZALEZ YANELY BRUCE [id number] [facility] 2022-02-16 07:30:00 2022-02-16 07:30:00 Outpatient Y[facility]ELY BRU[facility] [id number] [facility] 2022-02-10 08:15:00 2022-02-10 08:15:00 Office Visit DIRK BLANC [facility] 1..840.114 350.1.13.13 1.2.7.2.686 [id number] [facility] 2022-02-09 06:30:00 2022-02-09 06:30:00 Outpatient DIRK BLANC YANELY BRUCE [id number] Yanely [facility] 2022-02-09 00:00:00 2022-02-09 00:00:00 Outpatient NAOMY CONN [id number] Yanely [facility] 2022-02-03 10:00:00 2022-02-03 10:00:00 Outpatient COVID-PFIZE Jose CARMICHAELANA LAURA [facility] [id number] [facility] 2022-02-03 09:00:00 2022-02-03 09:15:00 Office Visit Letha Rodriguez 1..840.114 350.1.13.13 1.2.7.2.686 [id number] Yanely [facility] 2022-02-03 00:00:00 2022-02-03 00:00:00 Outpatient ISABELLCARLOS YANELY BRUCE [id number] Yanely [facility] 2022-01-28 08:00:00 2022-01-28 08:10:00 Office Visit Rogelio Ojeda [facility] 1..840.114 350.1.13.13 1.2.7.2.686 [id number] Yanely [facility] 2022-01-28 07:50:00 2022-01-28 07:50:00 Outpatient TOMOGRAPHY, FBMDC YANELY BRUCE [id number] Yanely Jarrett 2022-01-25 08:30:00 2022-01-25 08:30:00 Outpatient 1, OPTICAL YANELY YANELY [id number] Yanely Jarrett 2022-01-25 08:15:00 2022-01-25 08:30:00 [facility] 1.2.840.114 350.1.13.13 1.2.7.2.686 [id number] Yanely Jarrett 2022-01-24 11:25:00 2022-01-24 11:25:00 Outpatient LAB47 YANELY YANELY [id number] Yanely Ahmadiemmanuel 2022-01-24 10:45:00 2022-01-24 11:00:00 Office Visit Krystyna Johnson [facility] 1.2.840.114 350.1.13.13 1.2.7.2.686 [id number] Yanely Jarrett 2022-01-19 08:45:00 2022-01-19 08:45:00 Outpatient LAB47 YANELY YANELY [id number] Yanely Jarrett 2022-01-19 08:15:00 2022-01-19 08:15:00 Office Visit CARLOS NOEL [facility] 1.2.840.114 350.1.13.13 1.2.7.2.686 [id number] Yanely Jarrett 2022-01-04 08:00:00 2022-01-04 08:15:00 [facility] 1.2.840.114 350.1.13.13 1.2.7.2.686 [id number] Yanely Luiza 2022-01-04 08:00:00 2022-01-04 08:00:00 Outpatient DIRK BLANC YANELY BRUCE [id number] Yanely Luiza 2022-01-04 00:00:00 2022-01-04 00:00:00 Outpatient NEYMARDIRK YANELY BRUCE [id number] Yanely Ahmadiybemmanuel 2022-01-03 07:30:00 2022-01-03 07:30:00 Outpatient DIRK BLANC YANELY YANELY [id number] Yanely Ahmadi[facility] 2022-01-03 00:00:00 2022-01-03 00:00:00 Outpatient NATALIE BACA YANELY BRUCE [id number] [facility] 2021-12-24 10:00:00 2021-12-24 10:00:00 Education TUCKER HAYNES 1.2.840.114 350.1.13.13 1.2.7.2.686 [id number] Yanely Jarrett 2021-12-24 00:00:00 2021-12-24 00:00:00 Outpatient LAWANDA LYLES [facility] [id number] [facility] 2021-12-21 09:00:00 2021-12-21 09:30:00 Office Visit Trupti Lawanda [facility] 1.2.840.114 350.1.13.13 1.2.7.2.686 [id number] Yanely Ahmadiemmanuel 2021-12-20 00:00:00 2021-12-20 00:00:00 Outpatient LETHA RODRIGUEZ [id number] [facility] 2021-12-17 08:00:00 2021-12-17 08:10:00 Office Visit Rogelio Ojeda [facility] 1.2.840.114 350.1.13.13 1.2.7.2.686 [id number] [facility] 2021-12-08 00:00:00 2021-12-08 00:00:00 Outpatient LETHA RODRIGUEZ [id number] [facility] 2021-11-23 00:00:00 2021-11-23 00:00:00 Outpatient LETHA RODRIGUEZ [id number] [facility] 2021-11-12 10:30:00 2021-11-12 10:40:00 Office Visit Rogelio Ojeda [facility] 1.2.840.114 350.1.13.13 1.2.7.2.686 [id number] Yanely [facility] 2021-11-12 08:30:00 2021-11-12 08:30:00 Outpatient ROGELIO OJEDA YANELY BRUCE [id number] Yanely [facility] 2021-11-12 08:10:00 2021-11-12 08:10:00 Outpatient ROGELIO OJEDA YANELY BRUCE [id number] Yanely [facility] 2021-11-10 00:00:00 2021-11-10 00:00:00 Outpatient KRYSTYNA JOHNSON [id number] [facility] 2021-11-10 00:00:00 2021-11-10 00:00:00 Outpatient LETHA RODRIGUEZ [id number] Yanely [facility] 2021-11-05 08:00:00 2021-11-05 08:00:00 Outpatient LAWANDA LYLES [id number] [facility] 2021-11-04 00:00:00 2021-11-04 00:00:00 Outpatient KRYSTYNA JOHNSON [id number] [facility] 2021-10-29 08:45:00 2021-10-29 09:00:00 Office Visit Dirk Blanc [facility] [place] 1.2.840.114 350.1.13.13 1.2.7.2.686 [id number] [facility] 2021-10-20 00:00:00 2021-10-20 00:00:00 Outpatient LETHA RODRIGUEZ [id number] [facility] 2021-10-20 00:00:00 2021-10-20 00:00:00 Outpatient LETHA RODRIGUEZ [id number] [facility] 2021-09-27 00:00:00 2021-09-27 00:00:00 Domenica Bonilla [facility] 1..840.114 350.1.13.10 4.2.7.2.686 [id number] [facility] 2021-09-24 08:25:00 2021-09-24 08:25:00 [facility] [id number] [facility] Luiza 2021-09-24 08:10:00 2021-09-24 08:20:00 Office Visit Rogelio Ojeda [facility] 1..840.114 350.1.13.13 1.2.7.2.686 [id number] [facility] emmanuel 2021-09-23 09:30:00 2021-09-23 09:30:00 Outpatient LAWANDA LYLES [id number] [facility] 2021-09-15 00:00:00 2021-09-15 00:00:00 Outpatient LETHA RODRIGUEZ [id number] [facility] 2021-09-09 00:00:00 2021-09-09 00:00:00 Outpatient LETHA RODRIGUEZ [id number] [facility] 2021-08-27 00:00:00 2021-08-27 00:00:00 Outpatient CHELLE CUTLER [id number] [facility] 2021-08-25 09:05:00 2021-08-25 09:05:00 Outpatient LAB90 YANELY BRUCE [id number] [facility] 2021-08-25 08:00:00 2021-08-25 08:45:00 Office Visit Letha Rodriguez [place] 1..840.114 350.1.13.13 1.2.7.2.686 [id number] [facility] 2021-08-17 10:00:00 2021-08-17 10:00:00 Outpatient LAB90 YANELY BRUCE [id number] [facility] 2021-08-17 09:25:00 2021-08-17 09:25:00 Outpatient LAB90 [facility] [id number] [facility] 00:00:00 2021-08-17 00:00:00 Domenica Bonilla [facility] 1.2.840.114 350.1.13.10 4.2.7.2.686 [id number] [facility] 2021-08-16 00:00:00 2021-08-16 00:00:00 [facility] 1.2.840.114 350.1.13.10 4.2.7.2.686 [id number] [facility] 2021-08-13 09:40:00 2021-08-13 09:50:00 Office Visit Rogelio Ojeda [facility] 1.2.840.114 350.1.13.13 1.2.7.2.686 [id number] [facility] 2021-08-09 10:45:00 2021-08-09 11:00:00 Office Visit Krystyna Johnson 1.2.840.114 350.1.13.13 1.2.7.2.686 [id number] [facility] 2021-08-03 00:00:00 2021-08-03 00:00:00 Outpatient CARLOS NOEL [id number] [facility] 2021-08-03 00:00:00 2021-08-03 00:00:00 Outpatient LETHA RODRIGUEZ [id number] [facility] 2021-08-03 00:00:00 2021-08-03 00:00:00 Outpatient KRYSTYNA JOHNSON [id number] [facility] 2021-08-03 00:00:00 2021-08-03 00:00:00 Outpatient LETHA RODRIGUEZ [id number] [facility] 2021-08-03 00:00:00 2021-08-03 00:00:00 [facility] 1.2.840.114 350.1.13.10 4.2.7.2.686 [id number] [facility] 2021-07-02 08:30:00 2021-07-02 08:40:00 Office Visit [facility] [place] 1..840.114 350.1.13.13 1.2.7.2.686 [id number] [facility] 2021-06-23 08:20:00 2021-06-23 08:20:00 Outpatient HARJINDER BRUCE [id number] [facility] 2021-06-22 11:20:00 2021-06-22 11:20:00 Outpatient Jose ARIAS DOMENICA [facility] [id number] [facility] 2021-06-14 10:15:00 2021-06-14 10:15:00 Outpatient KRYSTYNA JOHNSON [id number] [facility] 2021-05-21 08:10:00 2021-05-21 08:20:00 Office Visit [facility] [place] 1..840.114 350.1.13.13 1.2.7.2.686 [id number] [facility] 2021-05-12 00:00:00 2021-05-12 00:00:00 Outpatient CARLOS NOEL [id number] [facility] 2021-05-11 09:00:00 2021-05-11 09:00:00 Outpatient CARLOS NOEL [id number] [facility] 2021-05-11 00:00:00 2021-05-11 00:00:00 Outpatient LETHA RODRIGUEZ [id number] [facility] 2021-05-06 15:15:00 2021-05-06 15:15:00 Outpatient TRED45 YANELY BRUCE [id number] Yanely emmanuel 2021-05-06 15:00:00 2021-05-06 15:00:00 Outpatient SWAB, FBMDC YANELY BRUCE [id number] Yanely emmanuel 2021-05-06 15:00:00 2021-05-06 15:00:00 Outpatient LRO50-IHF YANELY BRUCE [id number] [facility] 2021-05-05 00:00:00 2021-05-05 00:00:00 Outpatient CARLOS NOEL YANELY BRUCE [id number] [facility] 2021-05-03 00:00:00 2021-05-03 00:00:00 Outpatient YANELY BRUCE [id number] [facility] 2021-05-03 00:00:00 2021-05-03 00:00:00 Outpatient NARCISO GUPTA [id number] [facility] 2021-04-23 08:00:00 2021-04-23 08:10:00 Office Visit [facility] [id number] 350.1.13.13 [id number] [id number] [facility] 2021-04-19 00:00:00 2021-04-19 00:00:00 Outpatient MD YANELY BALLARD [id number] [facility] 2021-04-08 14:00:00 2021-04-08 14:00:00 Outpatient YANELY BRUCE [id number] [facility] 2021-04-06 00:00:00 2021-04-06 00:00:00 Outpatient LETHA RODRIGUEZ [id number] [facility] 2021-04-01 00:00:00 2021-04-01 00:00:00 [facility] [id number] [facility] 2021-03-19 09:01:05 2021-03-19 09:11:05 Office Visit [place] [place] 1.840.114 350.1.13.13 1.2.7.2.686 [id number] [facility] 2021-03-18 00:00:00 2021-03-18 00:00:00 Outpatient LAWANDA LYLES [id number] [facility] 2021-03-17 00:00:00 2021-03-17 00:00:00 Outpatient KRYTSYNA JOHNSON YANELY BRUCE [id number] [facility] 2021-03-16 00:00:00 2021-03-16 00:00:00 Outpatient ELIZABETH KRYSTYNA YANELY BRUCE [id number] [facility] 2021-03-15 14:42:50 2021-03-15 15:12:50 Office Visit Elizabeth Krystyna Kruse RADU 1.2840.114 350.1.13.13 1.2.7.2.686 [id number] [facility] 2021-02-26 00:00:00 2021-02-26 00:00:00 Outpatient CARLOS NOEL YANELY BRUCE [id number] [facility] 2021-02-22 00:00:00 2021-02-22 00:00:00 Telephone [facility]omenica [facility]as [facility] 1.2840.114 350.1.13.10 4.2.7.2.686 [id number] [facility] 2021-02-22 00:00:00 2021-02-22 00:00:00 Orders Only Doctor Unassigned, Edgar [facility] 1.840.114 350.1.13.10 4.2.7.2.686 [id number] [facility] 2021-02-19 07:47:03 2021-02-19 08:22:01 Telemedici Lawanda Ferguson [facility] 1.2840.114 350.1.13.13 1.2.7.2.686 [id number] [facility]ely [facility] 2021-02-18 00:00:00 2021-02-18 00:00:00 Outpatient LETHA RODRIGUEZ [id number] [facility] 2021-02-18 00:00:00 2021-02-18 00:00:00 Outpatient COREYKAYLIE [facility]ELY [facility] [id number] [facility] 2021-02-18 00:00:00 2021-02-18 00:00:00 Outpatient CARLOS NOEL [facility] [id number] [facility] 2021-02-17 15:45:00 2021-02-17 15:45:00 Outpatient MODE [facility] BRU[facility] [id number] [facility] 2021-02-17 14:40:10 2021-02-17 14:55:10 Office Visit Carlos Noel 1..840.114 350.1.13.13 1.2.7.2.686 [id number] [facility] 2021-02-17 14:30:00 2021-02-17 14:30:00 Outpatient TUCKER HAYNES [id number] [facility] 2021-02-17 00:00:00 2021-02-17 00:00:00 Outpatient CARLOS NOEL YANELY BRUCE [id number] [facility] 2021-02-12 13:22:59 2021-02-12 13:32:59 Office Visit Rogelio Ojeda [facility] & [facility] 1..840.114 350.1.13.13 1.2.7.2.686 [id number] [facility] 2021-02-09 13:20:00 2021-02-09 13:20:00 Outpatient DIANA MARROQUIN [id number] [facility] 2021-01-12 00:00:00 2021-01-12 00:00:00 Outpatient LETHA RODRIGUEZ [id number] [facility] 2021-01-05 08:10:00 2021-01-05 08:10:00 Outpatient LAB90 YANELY YANELY [id number] Yanely Sealexemmanuel 2020-12-28 13:30:00 2020-12-28 13:30:00 Outpatient LETHA RODRIGUEZ YANELY [id number] [facility] 2020-08-07 13:05:00 2020-08-07 13:05:00 Outpatient [facility] [id number] [facility] 2020-06-25 16:00:00 2020-06-25 16:00:00 Outpatient R GEOFFREYGERARDO [facility] [id number] [facility] 2020-06-19 11:13:36 2020-06-19 12:10:35 [facility] [id number] 350.1.13.10 4.2.7.2.686 [id number] [facility] 2020-06-19 11:20:00 2020-06-19 11:20:00 Outpatient R [facility] [id number] [facility] 2019-10-23 10:20:00 2019-10-23 10:20:00 Outpatient R [facility] [id number] [facility] Results Test Description Test Time Test Comments Results Result Co mments Source Yanely Jarrett - ExternalREAGENT STRIP/BLOOD [id number] 16:57:00* Test Item Value Reference Range Interpretation Comme nts BLOOD SUGAR (test code = 041702) 353 mg/dL 65-99 A Lab Interpretation (test cod e = [id number]) Abnormal Yanely SeyboldREAGENT STRIP/BLOOD [id number] 20:00:00* Test Item Value Reference Range Interpretation Comme nts BLOOD SUGAR (test code = 284507) 261 mg/dL 65-99 A Lab Interpretation (test cod e = [id number]) Abnormal Yanely Jarrett Notes Date/Time Note Provider Source 2024-07-04 10:08:22 Chief Complaint Patient presents with Physical Fasting for labs. Needs documentation about him needing a wheelchair Andreia Vasques LVN [facility] 2023-06-15 11:41:58 Chief Complaint Patient presents with Hand Numbness Numbness of the L hand/wrist for almost a week. Pt states that this started right after Dialysis. Taking ibuprofen when he can for the pain [facility] 2023-05-30 08:09:44 Chief Complaint Patient presents with Follow-Up Visit 4 week follow up Andreia Vasques LVN [facility] 2023-02-02 09:14:22 Formatting of this n ote is different from the original. Chief Complaint Patient presents with Sinus Problem [facility]
--- NOTE | 2024-10-21 18:22 | RAD REPORT ---
EXAM: Chest Single View HISTORY: 59 years Male CHEST PAIN COMPARISON: 07/22/2024 FINDINGS: LUNGS/PLEURA: The lungs are clear. No pleural effusions or pneumothorax. No pulmonary edema. CARDIAC/MEDIASTINUM: The cardiac silhouette is within normal limits. UPPER ABDOMEN: No significant abnormality. BONES: No acute abnormality. LINES/TUBES/OTHER: Right IJ approach dialysis catheter with tip overlying the SVC. IMPRESSION: No evidence of acute cardiopulmonary disease. No significant change from prior.
--- NOTE | 2024-10-21 19:25 | EDPHYS ---
Physician Documentation [facility] Name: Jose Gonzales Age: 59 yrs Sex: Male : 1965 Arrival Date: 10/21/2024 Time: 16:32 Bed DX3 Private MD: ED Physician Louann Snow HPI: 10/21 17:40 This 59 yrs old Male presents to ER via Wheelchair with complaints of Port gb1 issue, XRAY. 17:40 59-year-old male with taking a nap and rolled over on his right chest dialysis port gb1 access. He went to have dialysis today and they would not use the access site until an x-ray verifies that it was in correct place. 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 Historical: - Allergies: 17:22 bleach; ap3 - PMHx: 17:22 chronic kidney disease; Congestive heart failure; diabetes mellitus; Dialysis; ap3 Hypertensive disorder; Enlarged Heart; PERIPHERAL NEUROPATHY; Sleep Apnea; - PSHx: 17:22 Appendectomy; cataracts; knee surgery; ap3 - Immunization history:: Client reports receiving the 2nd dose of the Covid vaccine, Flu vaccine is up to date. - Infectious Disease History:: Denies. - Social history:: Smoking status: Patient reports use of chewing tobacco. Exam: 17:40 Constitutional: This is a well developed, well nourished patient who is awake, alert, gb1 and in no acute distress. Head/Face: Normocephalic, atraumatic. Eyes: Pupils equal round and reactive to light, extra-ocular motions intact. Lids and lashes normal. Conjunctiva and sclera are non-icteric and not injected. Cornea within normal limits. Periorbital areas with no swelling, redness, or edema. ENT: Nares patent. No nasal discharge, no septal abnormalities noted. Tympanic membranes are normal and external auditory canals are clear. Oropharynx with no redness, swelling, or masses, exudates, or evidence of obstruction, uvula midline. Mucous membranes moist. Neck: Trachea midline, no thyromegaly or masses palpated, and no cervical lymphadenopathy. Supple, full range of motion without nuchal rigidity, or vertebral point tenderness. No Meningismus. Chest/axilla: Normal chest wall appearance and motion. Nontender with no deformity. No lesions are appreciated. Right chest wall dialysis port access appears clean dry and intact. Cardiovascular: Regular rate and rhythm with a normal S1 and S2. No gallops, murmurs, or rubs. Normal PMI, no JVD. No pulse deficits. Respiratory: Lungs have equal breath sounds bilaterally, clear to auscultation and percussion. No rales, rhonchi or wheezes noted. No increased work of breathing, no retractions or nasal flaring. Back: No spinal tenderness. No costovertebral tenderness. Full range of motion. Skin: Warm, dry with normal turgor. Normal color with no rashes, no lesions, and no evidence of cellulitis. MS/ Extremity: Pulses equal, no cyanosis. Neurovascular intact. Full, normal range of motion. Vital Signs: 17:20 BP 194 / 87; Pulse 78; Resp 17; Temp 98.2; Pulse Ox 95% on R/A; Weight 156.49 kg; ap3 Height 6 ft. 2 in. ; 17:20 Body Mass Index 44.29 (156.49 kg, 187.96 cm) ap3 MDM: 17:29 Medical Screening Exam initiated gb1 19:24 Data reviewed: vital signs, nurses notes, radiologic studies, plain films. gb1 19:25 ED course: Patient's chest x-ray shows a normal dialysis port on the right chest is gb1 within normal limits ending in the SVC. I will discharge the patient home and to have his regular dialysis treatment tomorrow. Patient is compliant with this plan of care for discharge.. 10/21 17:25 Order name: CXR XRAY; Complete Time: 18:29 gb1 Administered Medications: 20:35 Drug: HEParin Flush IVP 6000 units IVP once; for dialysis cath 6000 units per port x1 kl Route: IVP; Site: right subclavian; Disposition Summary: 10/21/24 19:25 Discharge Ordered Notes: Location: Home gb1 Condition: Stable gb1 Diagnosis - Other complication of vascular dialysis catheter gb1 Followup: gb1 - With: Private Physician - When: - Reason: If symptoms return Discharge Instructions: - Discharge Summary Sheet gb1 - Vascular Access for Hemodialysis gb1 Forms: - Medication Reconciliation Form gb1 - Antibiotic Education gb1 - Prescription Opioid Use gb1 - Patient Portal Instructions gb1 - Leadership Thank You Letter gb1 Signatures: Dispatcher [employer] Maryam Naranjo, RN RN Verna Edgar RN RN ap3 Blocker, Gina, MD MD gb1
--- NOTE | 2024-10-21 19:25 | ER ---
Nurse's Notes [facility] Name: Jose Gonzales Age: 59 yrs Sex: Male : 1965 Arrival Date: 10/21/2024 Time: 16:32 Bed DX3 Private MD: Diagnosis: Other complication of vascular dialysis catheter Presentation: 10/21 17:20 Chief complaint: Patient states: he was sleeping Monday, and he pulled on his chest ap3 dialysis catheter. patient reports that his dialysis center wants him to get a placement x-ray check prior to him getting dialysis and potentially a replacement. patient reports he just took his medications as he did not get dialysis today. Coronavirus screen: At this time, the client does not indicate any symptoms associated with coronavirus-19. Ebola Screen: No symptoms or risks identified at this time. Initial Sepsis Screen: Does the patient meet any 2 criteria? No. Patient's initial sepsis screen is negative. Does the patient have a suspected source of infection? No. Patient's initial sepsis screen is negative. Risk Assessment: Do you want to hurt yourself or someone else? Patient reports no desire to harm self or others. Onset of symptoms was October 19, 2024. 17:20 Method Of Arrival: Wheelchair ap3 17:20 Acuity: ANDREW 4 ap3 Triage Assessment: 17:22 General: Appears in no apparent distress. Behavior is calm, cooperative, appropriate ap3 for age. Pain: Denies pain. Neuro: Level of Consciousness is awake, alert, obeys commands, Oriented to person, place, time, situation. Cardiovascular: Dialysis shunt: in the anterior aspect of right upper chest. Respiratory: Airway is patent Respiratory effort is even, unlabored, Respiratory pattern is regular, symmetrical. Historical: - Allergies: 17:22 bleach; ap3 - PMHx: 17:22 chronic kidney disease; Congestive heart failure; diabetes mellitus; Dialysis; ap3 Hypertensive disorder; Enlarged Heart; PERIPHERAL NEUROPATHY; Sleep Apnea; - PSHx: 17:22 Appendectomy; cataracts; knee surgery; ap3 - Immunization history:: Client reports receiving the 2nd dose of the Covid vaccine, Flu vaccine is up to date. - Infectious Disease History:: Denies. - Social history:: Smoking status: Patient reports use of chewing tobacco. Screenin:23 [facility] ED Fall Risk Assessment (Adult) History of falling in the last 3 months, ap3 including since admission No falls in past 3 months (0 pts) Confusion or Disorientation No (0 pts) Intoxicated or Sedated No (0 pts) Impaired Gait Yes (1 pt) Mobility Assist Device Used Yes (1 pt) Altered Elimination No (0 pt) Score/Fall Risk Level 0 - 2 = Low Risk Oriented to surroundings, Maintained a safe environment, Educated pt \T\ family on fall prevention, incl call for assistance when getting out of bed, Assessed \T\ reinforced patient's understanding of fall precautions, Hourly rounding (assess needs \T\ fall precautionary measures) done, Used ambulatory aids as needed (educated on \T\ assisted with). Abuse screen: Denies threats or abuse. Nutritional screening: No deficits noted. Tuberculosis screening: No symptoms or risk factors identified. Assessment: 20:35 Reassessment: Patient appears in no apparent distress at this time. Patient is alert, kl oriented x 3, equal unlabored respirations, skin warm/dry/pink. Patient denies pain at this time. Vital Signs: 17:20 BP 194 / 87; Pulse 78; Resp 17; Temp 98.2; Pulse Ox 95% on R/A; Weight 156.49 kg; ap3 Height 6 ft. 2 in. ; 17:20 Body Mass Index 44.29 (156.49 kg, 187.96 cm) ap3 ED Course: 16:34 Patient arrived in ED. im 16:37 Louann Snow MD is Attending Physician. gb1 17:22 Triage completed. ap3 17:23 Arm band placed on right wrist. ap3 18:19 CXR XRAY In Process Unspecified. EDMS 20:35 No provider procedures requiring assistance completed. Accessed Bill cath. Clean \T\ kl dry. Dressing intact. Flushes easily. 20:36 Patient did not have IV access during this emergency room visit. kl Administered Medications: 20:35 Drug: HEParin Flush IVP 6000 units IVP once; for dialysis cath 6000 units per port x1 kl Route: IVP; Site: right subclavian; Outcome: 19:25 Discharge ordered by . gb1 20:36 Discharged to home via wheelchair, kl 20:36 Condition: stable 20:36 Discharge instructions given to patient, significant other, Instructed on discharge instructions, follow up and referral plans. Demonstrated understanding of instructions, follow-up care, 20:36 Patient left the ED. kl Signatures: Dispatcher [employer] Maryam Naranjo RN RN kl Prokisch, Amanda, RN RN ap3 Felicita Garrett Gina, MD MD gb1
[2024-10-21] MEDS ORDERED: HEPARIN 5000 UNIT/ML 1 ML VIAL ONE (20:23)
[2024-10-21 20:57] VITALS: BP 194/87; TEMP 98.2; O2SAT 95
== END 2024-10-21 20:36 | disposition home or self-care (01) ==
LOC: ER 16:32
DX: T82.49XA Other complication of vascular dialysis catheter, initial encounter (principal)
CPT/HCPCS: 71045; 96374; 99284; J1644 ×2

== ENCOUNTER 2025-01-27 06:30 | Day surgery (SDC) | payer OTHER ==
[2025-01-21 16:05] LABS: PT Prothrombin Time 14.9 SECONDS (10-13.0); PTT, Activated Partial Thromb 34.1 SECONDS (27.2-37.4); Protime INR 1.33
[2025-01-21 16:12] LABS: Anion Gap 11.6 mEq/L (5.0-15.0); BUN Blood Urea Nitrogen 41.0 mg/dL (7-18); Glucose Level 206.0 mg/dL (74-106); Potassium 4.6 mEq/L (3.5-5.1)
[2025-01-21 16:34] LABS: Absolute Lymphocytes (CBC) 0.9 K/uL (0.7-4.9); Hematocrit 34.5 % (39.6-49.0); Hemoglobin 11.4 g/dL (13.6-17.9); MCH 29.2 pg (27.0-35.0); MCHC 33.1 g/dL (32.0-36.0); MCV 88.2 fL (80-100); MPV 7.3 fL (7.6-11.3); Nucleated RBC Absolute Count 0.0 (0-0); Nucleated Red Blood Cells % 0.0 % (0-0); RBC Red Blood Cell Count 3.91 M/uL (4.33-5.43); White Blood Count 5.70 thou/uL (4.3-10.9)
[2025-01-27] MEDS ORDERED: NA CHLORIDE 0.9% 500 ML ONE (07:06)
[2025-01-27] MEDS ORDERED: FENTANYL CITR 100 MCG/2 ML ONE (07:06)
[2025-01-27] MEDS ORDERED: MIDAZOLAM HCL 2 MG/2 ML INJ ONE (07:06)
[2025-01-27] MEDS ORDERED: HEPARIN 10,000 UNIT/10 ML VIAL IV ONE ×2 (07:54→08:15)
[2025-01-27] MEDS ORDERED: TICAGRELOR 90 MG TABLET PO ONE ×3 (07:56→07:58)
[2025-01-27] MEDS ORDERED: HEPA 1000U/500MLS 2,000 UNIT/1,000 ML BAG IV ONE (08:14)
[2025-01-27] MEDS ORDERED: NITROGLYCERIN/D5W 50 MG/250 ML BTL IV ONE (08:15)
[2025-01-27] MEDS ORDERED: VERAPAMIL HCL 10 MG/4 ML VIAL IV ONE (08:15)
[2025-01-27] MEDS ORDERED: HEPARIN 5000 UNIT/ML 1 ML VIAL ONE (08:15)
[2025-01-27] MEDS ORDERED: LIDOCAINE 1% 20 ML MDV ONE (08:58)
[2025-01-27] MEDS ORDERED: ATROPINE SULF 1 MG/10 ML SYR IV ONE (08:58)
[2025-01-27 10:40] VITALS: O2SAT 100
[2025-01-27 15:40] VITALS: BP 193/95
--- NOTE | 2025-01-28 01:49 | OP ---
Date of Procedure: 01/27/2025 Surgeon: SHARYN DENISE Procedures Performed: 1. Selective coronary angiogram. 2. Left heart catheterization. 3. Percutaneous coronary intervention of severe in-stent restenosis of the right coronary artery. I used 3.5 x 24 mm Synergy drug-eluting stent. Indication: Unstable angina and chest pain with abnormal stress test. Access: Right radial artery 6-Afghan, closed with TR band. Complications: None. Bleeding: Less than 50 mL. Total Sedation Time: 1 hour, used fentanyl and versed. Description Of Procedure: After risks, benefits, and alternatives were explained, patient agreed to procedure, signed informed consent. The patient was brought into cardiac catheterization laboratory, prepped and draped in sterile fashion. Then, I accessed right radial artery using pediatric micropu ncture kit, ultrasound guidance, and placed a 6-Afghan slender sheath, took 5-Afghan catheter [place] 4 .0 catheter into aortic root, over J-wire across the aortic valve, measured the LVEDP. Pullback did not record any gradient. Then, engaged the RCA, took standard views, and then the left main, took st andard views and then exchanged for 6-Afghan JR4 guide. Gave systemic heparin to assure his level ab ove 250 and the patient was already on prasugrel and aspirin that he took last night. Took Runthroug h wire into the RCA, placed it distally and then using a 3.5 balloon lesion was pre-dilated successfu lly and then placed a 3.5 x 24 mm Synergy drug-eluting stent across the area of stenosis, excellent e xpansion, 0% residual stenosis, and then removed the wire. Final angiogram was satisfactory and riki cosme the guide and the sheath, placed TR band with good hemostasis. Findings: 1. Left main is normal. 2. LAD: Very large vessel. Proximal is normal. Mid 40%. Diagonal branches are normal. Rest of th e LAD is normal. 3. Left circumflex has mid 50% stenosis at the OM takeoff. The rest of it is with luminal irregulari ties. 4. RCA: There is a proximal RCA stent that had 90% in-stent restenosis, status post successful PCI a s above. In distal RCA, there are 2 tandem lesions, one is 50% and the other is 30% and luminal irre gularities of the PLB and PDA. 5. LVEDP is elevated at 25 mmHg. Conclusion: 1. Severe RCA in-stent restenosis, status post successful PCI. 2. Moderate coronary artery disease elsewhere with elevated LVEDP. Recommendation: Dual antiplatelet therapy and high-dose statin and plan for a stress test in 6 month s due to significant in-stent restenosis. SR/MODL Voice ID: [id number] Report ID: [id number]
== END 2025-01-27 11:15 | disposition home or self-care (01) ==
LOC: CCL 06:30
PROVIDERS: ATTEND Internal Medicine
DX: I25.110 Atherosclerotic heart disease of native coronary artery with unstable angina pectoris (principal); T82.855A Stenosis of coronary artery stent, initial encounter; I34.0 Nonrheumatic mitral (valve) insufficiency; I48.0 Paroxysmal atrial fibrillation; I10 Essential (primary) hypertension; E11.9 Type 2 diabetes mellitus without complications; E78.2 Mixed hyperlipidemia; F17.210 Nicotine dependence, cigarettes, uncomplicated; Z79.82 Long term (current) use of aspirin; Z79.899 Other long term (current) drug therapy; Z82.49 Family history of ischemic heart disease and other diseases of the circulatory system
CPT/HCPCS: 93005; 85025; 80048; 36415; 85610; 85730; 93458; 76937; C1893; Q9967; C9600; J1644 ×2; J2003; J0461; J2250; J3010; J7040; 99152; 99153

== ENCOUNTER 2025-03-03 16:43 | Emergency (ER) | payer OTHER ==
--- OUTSIDE RECORDS SUMMARY | 2025-03-03 16:53 | XMS REPORT | Continuity of Care Document ---
Author Name Unknown Address [address] [facility] [address] [place] [address] [facility] Address [address] [place] [address] Care Team Providers Care Sound Printer Name Role Phone Gena Genoveva GUSTAFSON Primary Care Physician Unava LETHA Walker Attending Clinician Unava ilEVA Ferro Attending Clinician Unavailab muna TSE MD Attending Clinician Unavailab KRYSTYNA Vega Attending Clinician Unavailable GAVIOTA COSTA Attending Clinician Unavailable DAX PRADO Attending Clinician Unavailable LAB90 Attending Clinician Unavailable ANA LAURA MARTE B Attending Clinician Unavaila ble [id number] Attending Clinician Unavailable KENJI WEAVER Attending Clinician Unavailable CARLOS NOEL Attending Clinician Unavailable LARA ROGERS Attending Clinician Unavailable JACKY MATHEW Attending Clinician Unavailable ROGELIO OJEDA Attending Clinician Unavailable PARRISH HALE Attending Clinician Unavailab le 1, [facility] Attending Clinic jordyn Unavailable ROBYN CONNELLY Attending Clinician Unavailable Doctor Unassigned, [place] Attending Clinician U BEVERLY Stuart Attending Clinician UnaDIRK Enrique Attending Clinician Unavailable NAOMY CONN Attending Clinician Unavailable COVID-PFIZER AMOL DU SAM Attending Clinic jordyn Unavailable Jennifer MCLAUGHLIN, Letha Moon Attending Clinician [phone] Rogelio Ojeda MD Attending Clinician [phone] TOMOGRAPHY, [facility] OPTICAL COHERENCE Attending Cl inician Unavailable Dirk Blanc MD Attending Clinician [phone] LAB47 Attending Clinician Unavailable Krystyna Johnson DO Attending Clinician [phone] NATALIE BACA Attending Clinician Unavailabl e PL, TECH 1 Attending Clinician Unavailable LAWANDA BROWN Attending Clinician Unavaila ble Lawanda Brown PA-C Attending Clinician + [phone] Domenica Shukla MD Attending Clinician [phone] CHELLE CUTLER Attending Clinician Unavailable DOMENICA SHUKLA Attending Clinician Unavailable [id number] Attending Clinician Unavailable SWAB, [facility] COVID SELF Attending Clinician Unava ilable [id number] Attending Clinician Unavailable NARCISO GUPTA Attending Clinician Unavai KAYLIE Ureña Attending Clinician Unavail able Carlos Noel MD Attending Clinician [phone] DIANA MARROQUIN Attending Clinician Unavailable GERARDO HALE Attending Clinician Unavaila ble Payers Payer Name Policy Type Policy Number Effective Date Expirati on Date Source [facility] [place] C-SNP 7 [id number] 2025 00:00:00 OFELIA TELLEZ PREMIER HMO PLAN 7 [id number] 2024 00:00:00 MEDICAID-NHIC 6 [id number] 2021 00:00:00 [employer] GOLD HMO 7 [id number] 2020 00:00:00 Problems Condition Name Condition Details Condition Category Status Onset Date Resolution Date Last Treatment Date Treating Clinician Comments Source History of SD (myocardia l infarction ) History of SD (myocardia l infarction ) Disease Active 07-04 00:00: 00 Yanely lee CKD (chronic kidney disease) stage 5, GFR less than 15 ml/min (multi HCC) CKD (chronic kidney disease) stage 5, GFR less than 15 ml/min (multi HCC) Disease Active 07-04 00:00: 00 Yanely lee Chronic constipati on Chronic constipati on Disease Active 08-28 00:00: 00 Yanely lee Anemia of chronic disease Anemia of chronic disease Disease Active 08-28 00:00: 00 Yanely lee Paroxysmal atrial fibrillati [...] might be different from the original. Nephrolog y-Dr. Patience lee Well adult exam Well adult exam [...] might be different from the original. Nephrolog y-Dr. 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) Disease Active 12-16 00:00: 00 Yanely Yina jesus Mild major depression Mild major depression Disease Active 12-16 00:00: 00 Yanely Bernstein Externa jesus Stable angina Stable angina Disease Active 12-16 00:00: 00 Yanely Bernstein Externa jesus Stage 4 chronic kidney disease Stage 4 chronic kidney disease Disease Active 02-03 00:00: 00 Yanely Yina jesus Class 3 severe obesity due to excess calories with serious comorbidit y and body mass index (BMI) of 40.0 to 44.9 in adult Class 3 severe obesity due to excess calories with serious comorbidit y and body mass index (BMI) of 40.0 to 44.9 in adult Disease Active 08-25 00:00: 00 Yanely Bernstein Externa jesus Type 2 diabetes mellitus with diabetic neuropathy (multi HCC) Type 2 diabetes mellitus with diabetic neuropathy (multi HCC) Disease Active 08-25 00:00: 00 Yanely Yina jesus Morbid obesity with BMI of 45.0-49.9, adult Morbid obesity with BMI of 45.0-49.9, adult Disease Active 08-25 00:00: 00 Yanely Yina jesus Stage 3a chronic kidney disease Stage 3a chronic kidney disease Disease Active 08-13 00:00: 00 Yanely Bernstein Externa jesus Type 2 diabetes mellitus with chronic kidney disease on chronic dialysis, 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, 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) Disease Active 2020-06 00:00: 00 Yanely Bernstein Externa jesus Type 2 diabetes mellitus with chronic kidney disease on chronic dialysis, 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, 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) Disease Active 2020-06 00:00: 00 Yanely Jarrett - Externa l Body mass index 40.0-44.9, adult Body mass index 40.0-44.9, adult Disease Active 02-17 00:00: 00 Yanely Jarrett 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, with macular edema, associated with type 2 diabetes mellitus (multi HCC) 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, with macular edema, associated with type 2 diabetes mellitus (multi HCC) Disease Active 02-12 00:00: 00 Yanely Jarrett - Externa l Severe nonprolife rative diabetic retinopath y of [...] diabetes mellitus Disease Active 02-09 00:00: 00 aYnely Jarrett Diabetic macular edema of left eye [...] 12-28 00:00: 00 Yanely Bernstein Externa l Essential hypertensi on Essential hypertensi on Disease Active 12-28 00:00: 00 Yanely Jarrett - Externa l Morbid obesity Morbid obesity Disease Active 12-28 [...] HCC) Disease Active 12-28 00:00: 00 Yanely Flores l Hyperchole sterolemia Hyperchole sterolemia Disease Active 12-28 00:00: 00 Yanely Flores l Acute respirator y failure Acute respirator y failure Disease Active 2018-06 00:00: 00 [facility] Morbid obesity Morbid obesity Disease Active 2018-06 00:00: 00 [facility] Hypertensi ve emergency Hypertensi ve emergency Disease Active 2018-06 00:00: 00 [facility] Acute diastolic congestive heart failure Acute diastolic congestive heart failure Disease Active 2018-06 00:00: 00 [facility] KEVIN on CPAP KEVIN on CPAP Disease Active 2018-06 00:00: 00 [facility] Stage 3 chronic kidney disease Stage 3 chronic kidney disease Disease Active 2018-06 00:00: 00 [facility] IDDM (insulin dependent diabetes mellitus) IDDM (insulin dependent diabetes mellitus) Disease Active 2018-06 00:00: 00 [facility] HELEN (acute kidney injury) HELEN (acute kidney injury) Disease Active 2018-06 00:00: 00 [facility] Morbid obesity with body mass index of 40.0-49.9 Morbid obesity with body mass index of 40.0-49.9 Disease Active 2018-06 00:00: 00 [facility] Allergies, Adverse Reactions, Alerts Allergy Name Allergy Type Status Severity Reaction(s) Onset Date Inactive Date Treating Clinician Comments Source NO KNOWN ALLERGIE S Drug Class Active [facility] Social History Social Habit Start Date Stop Date Quantity Comments Source Gender identity 2021-05-19 17:46:57 Identifies as male gender (finding) Yanely Jarrett - External Sexual orientation 2021-05-19 17:46:57 Heterosexual (finding) Yanely Jarrett - External History of Occupation Yanely Jarrett - External History of tobacco use Chews Tobacco Yanely Jarrett - External Exposure to SARS-CoV-2 (event) Not sure Yanely Se mathias Alcoholic beverage intake 2024-11-26 00:00:00 2024-11-26 00:00:00 Ex-drinker (finding) Yanely Binghamemmanuel - External Alcohol intake 2023-08-29 00:00:00 2023-08-29 [...] External Ex-smoker 2019-04-09 00:00:00 2019-04-09 00:00:00 [facility] Medications Ordered Medication Name Filled Medication Name Start Date Stop Date Current Medication? Ordering Clinician Indication Dosage Frequency Signature (SIG) Comments Components Source Coenzyme Q10 (Co Q-10) 100 MG oral Capsule 11-26 16:35: 49 11-26 00:00 :00 No 1{capsu le} QD Take 1 capsule by mouth daily. Yanely lee Turmeric 500 MG oral Capsule 11-26 16:35: 31 11-26 00:00 :00 No 1{capsu le} QD Take 1 capsule by mouth daily Yanely lee ASPIRIN 81 OR 11-26 14:00: 14 Yes [id number] Take by mouth. Yanely lee Sevelamer Carbonate 800 MG oral Tablet 11-26 14:00: 14 Yes [id number] Take by mouth. Yanely lee Ferrous Sulfate (Iron) 325 (65 Fe) MG oral Tablet 11-26 13:58: 19 Yes 325mg QD Take 1 tablet (325 mg total) by mouth daily (with breakfast) . Yanely lee Apixaban (Eliquis) 2.5 MG oral Tablet 11-26 13:58: 19 Yes 2.5mg Q.5D Take 1 tablet (2.5 mg total) by mouth in the morning and 1 tablet (2.5 mg total) in the evening. Yanely lee Methoxy PEG-Epoetin Beta (Mircera) 50 MCG/0.3ML injection Solution Prefilled Syringe 11-26 13:58: 19 Yes [id number] 50ug Inject 50 mcg as directed every other week. Yanely lee Tirzepatide (Mounjaro) 2.5 MG/0.5ML subcutaneou s Solution Auto-inject or 11-26 00:00: 00 Yes [id number] 2.5mg Q1W Inject 2.5 mg into the skin once a week. Yanely lee Atorvastati n Calcium 40 MG oral Tablet 11-19 00:00: 00 Yes [id number] Yanely lee Brilinta 90 MG oral Tablet 11-13 00:00: 00 Yes [id number] Yanely lee Carvedilol 12.5 MG oral Tablet 11-12 00:00: 00 Yes [id number] Yanely lee metOLazone 5 MG oral Tablet 11-12 00:00: 00 Yes [id number] 5mg Take 1 tablet (5 mg total) by mouth every other day. Yanely lee Gentamicin Sulfate 0.1 % apply externally Cream 09-27 00:00: 00 11-26 00:00 :00 No Yanely lee Allopurinol 100 MG oral Tablet 3-20 00:00: 00 Yes 100mg QD TAKE 1 TABLET BY MOUTH DAILY Yanely lee Gabapentin 100 MG oral Capsule -12 00:00: 00 Yes [id number] 100mg Q.[id number] 3D TAKE ONE CAPSULE BY MOUTH THREE TIMES A DAY Yanely lee Insulin Pen Needle (B-D UF III MINI PEN NEEDLES) 31G X 5 MM does not apply Misc 08-14 00:00: 00 Yes [id number] USE 4 TIMES DAILY. Yanely lee NovoLOG FlexPen 100 UNIT/ML subcutaneou s Solution Pen-injecto r 08-14 00:00: 00 Yes [id number] INJECT UNDER THE SKIN 20 UNITS 3 TIMES DAILY ( BEFORE MEALS) Yanely lee GlipiZIDE 10 MG oral TABLET SR 24 HR 24 00:00: 00 Yes 10mg TAKE 1 TABLET BY MOUTH EVERY MORNING Yanely lee Levothyroxi ne Sodium 75 MCG oral Tablet 06 00:00: 00 Yes [id number] 75ug QD Take 1 tablet (75 mcg total) by mouth daily. Yanely lee Turmeric 500 MG oral Capsule 07-04 10:08: [...] Solution Prefilled Syringe 07-04 10:08: 15 Yes [id number] 50ug Inject 50 mcg as directed every other week. Yanely lee Levothyroxi ne Sodium 50 MCG oral Tablet 07-04 00:00: 00 Yes [id number] 50ug QD Take 1 tablet (50 mcg total) by mouth daily. Yanely lee Doxycycline Hyclate 100 MG oral Tablet 2023-06 00:00: 00 11-26 00:00 :00 No [id number] 100mg Q.5D Take 1 tablet (100 mg total) by mouth 2 times daily. Yanely lee Triamcinolo ne Acetonide 0.1 % apply externally Cream 2023-06 00:00: 00 Yes [id number] APPLY TO THE AFFECTED AREA(S) 2 TIMES A DAY. Yanely lee FLUTICASONE PROPIONATE, NASAL, 50 MCG/ACT nasal Suspension 2023-06 00:00: 00 Yes [id number] 50ug QD USE 1 SPRAY IN EACH NOSTRIL ONCE DAILY Yanely lee KETOCONAZOL E, TOPICAL, 2 % apply externally Shampoo 2023-06 00:00: 00 Yes [id number] APPLY 10 ML TO AFFECTED AREA TWICE WEEKLY Yanely lee Allopurinol 100 MG oral Tablet 03-01 00:00: 00 Yes 100mg QD take 1 tablet by mouth daily Yanely lee Linzess 145 MCG oral Capsule 02-28 00:00: 00 Yes [id number] 145ug QD take 1 capsule by mouth daily Yanely lee Pravastatin Sodium 40 MG oral Tablet 08 00:00: 00 07-04 00:00 :00 No [id number] 40mg take 1 tablet by mouth at bedtime Yanely lee Insulin Glargine (Basaglar KwikPen) 100 UNIT/ML subcutaneou s Solution Pen-injecto r 2024-0 7-05 00:00: 00 Yes [id number] INJECT 85 UNITS UNDER THE SKIN EVERY EVENING. Yanely lee Methoxy PEG-Epoetin Beta (Mircera) 50 MCG/0.3ML injection Solution Prefilled Syringe 08-28 09:59: 44 Yes [id number] 50ug Inject 50 mcg as directed every [...] MG oral Tablet 08-28 00:00: 00 Yes [id number] 100mg QD Take 1 tablet (100 mg total) by mouth daily. Yanely lee Clonidine (CATAPRES) 0.2 MG oral Tablet 08-28 00:00: 00 11-26 00:00 :00 No [id number] .2mg Q.5D Take 1 tablet (0.2 mg total) by mouth 2 times daily as needed (Elevated BP). Yanely lee Patiromer Sorbitex Calcium (Veltassa) 8.4 g oral Pack 08-28 00:00: 00 11-26 00:00 :00 No [id number] QD Take 1 dose pack by mouth [...] Solution Pen-injecto r 08-06 00:00: 00 Yes [id number] 80 units SQ nightly. Yanely lee Insulin Pen Needle 31G X 5 MM does not apply [facility] 08-06 00:00: 00 Yes [id number] Takes insulin QID. Yanely lee Insulin Aspart (NovoLOG FlexPen) 100 UNIT/ML subcutaneou s Solution Pen-injecto r 08-06 00:00: 00 Yes [id number] 20U Inject 20 units into the skin 3 times daily (before meals). Yanely lee GlipiZIDE 10 MG oral TABLET SR 24 HR 08-06 00:00: 00 Yes 10mg Take 1 tablet (10 mg total) by mouth every morning. Yanely lee Gabapentin 100 MG oral Capsule 08-06 00:00: 00 Yes [id number] 100mg Q.[id number] 3D Take 1 capsule (100 mg total) by mouth 3 times daily. Yanely lee Levothyroxi ne Sodium 50 MCG oral Tablet 08-06 00:00: 00 07-04 00:00 :00 No [id number] 50ug QD Take 1 tablet (50 mcg [...] Solution Pen-injecto r 06-15 00:00: 00 Yes [id number] 80 units SQ nightly. Yanely lee Insulin Aspart (NovoLOG FlexPen) 100 UNIT/ML subcutaneou s Solution Pen-injecto r 06-15 00:00: 00 Yes [id number] 20U Inject 20 units into the skin [...] 2022-06 10:46: 17 05-01 00:00 :00 No [id number] 1{tbl} Take 1 tablet by mouth nightly [...] apply externally Shampoo 2022-06 00:00: 00 Yes [id number] 10mL Apply 10 mL topically twice a week. Yanely lee FLUTICASONE PROPIONATE, NASAL, 50 MCG/ACT nasal Suspension 2022-06 00:00: 00 Yes [id number] 50ug Use 1 spray (50 mcg total) in each nostril daily. Yanely lee Furosemide 80 MG oral Tablet 2022-06 00:00: 00 Yes [id number] 80mg Q.5D Take 1 tablet (80 mg total) by mouth 2 times daily. Yanely lee Triamcinolo ne Acetonide 0.1 % apply externally Cream 2022-06 00:00: 00 05-30 05:59 :00 No [id number] Apply to affected skin twice daily. Yanely lee Cholecalcif lacey (Vitamin D3) 25 MCG (1000 UT) oral Capsule 2022-06 00:00: 00 05-30 00:00 :00 No [id number] 1{capsu le} Take 1 capsule by mouth three times a week. Yanely lee Carvedilol 25 MG oral Tablet 2022-06 00:00: 00 Yes [id number] 25mg Take 1 tablet (25 mg total) [...] MCG oral Capsule 02-20 00:00: 00 Yes [id number] TAKE ONE CAPSULE BY MOUTH DAILY Yanely lee Benzonatate (Tessalon Perles) 100 MG oral Capsule 02-08 00:00: 00 05-01 00:00 :00 No [id number] 100mg Q.[id number] 3D Take 1 capsule (100 mg total) [...] Take 1 capsule by mouth daily. Yanely ele Ginkgo Biloba 120 MG oral Capsule 02-02 [...] VITAMIN MENS OR) 02-02 09:34: 24 Yes [id number] 1{tbl} Take 1 tablet by mouth nightly [...] VITAMIN MENS OR) 01-30 08:55: 31 Yes [id number] 1{tbl} Take 1 tablet by mouth nightly [...] VITAMIN MENS OR) 01-23 09:08: 52 Yes [id number] 1{tbl} Take 1 tablet by mouth nightly [...] MG oral Tablet 12-26 00:00: 00 Yes [id number] TAKE ONE TABLET BY MOUTH TWICE A DAY WITH MEALS Yanely lee [place]-3 Fatty Acids (Fish Oil Concentrate ) 300 MG oral Capsule 12-16 09:19: 37 12-16 00:00 :00 No [id number] 1{capsu le} Take 1 capsule by mouth daily Yanely lee Ergocalcife rol 1.25 MG (67915 UT) oral Capsule 12-16 09:19: 37 12-16 00:00 :00 No [id number] Take 50,000 units by mouth once a [...] Take 2 tabs orally daily Yanely lee [place]-3 Fatty Acids (Fish Oil Concentrate ) 300 MG oral Capsule 12-16 00:00: 00 Yes [id number] 1{capsu le} Q.5D Take 1 capsule by mouth 2 times daily Yanely lee Isosorbide Mononitrate CR 30 MG oral TABLET SR 24 HR 12-16 00:00: 00 Yes [id number] 30mg QD Take 1 tablet (30 mg total) by mouth daily Yanely lee [place]-3 Fatty Acids (Fish Oil Concentrate ) 300 MG oral Capsule 12-16 00:00: 00 11-26 00:00 :00 No [id number] 1{capsu le} Q.5D Take 1 capsule by mouth 2 times daily Yanely lee Insulin Glargine (Basaglar KwikPen) 100 UNIT/ML subcutaneou s Solution Pen-injecto r 12-16 00:00: 00 06-15 00:00 :00 No [id number] 75 units SQ nightly Yanely lee Insulin Aspart (NovoLOG) 100 UNIT/ML injection Solution 12-16 00:00: 00 06-15 00:00 :00 No [id number] INJECT UNDER THE SKIN 20 UNITS THREE TIMES A DAY BEFORE MAJOR MEALS Yanely lee Ergocalcife rol 1.25 MG (79472 UT) oral Capsule 12-16 00:00: 00 05-01 00:00 :00 No [id number] Take 1 capsule (50,000 units total) by mouth once a month Yanely lee Furosemide 40 MG oral Tablet 12-16 00:00: 00 05-01 00:00 :00 No [id number] 60mg Take 1.5 tablets (60 mg total) by mouth 2 times daily Yanely lee Azithromyci n 250 MG oral Tablet 12-16 00:00: 00 12-22 04:59 :00 No [id number] Take 2 tablets by mouth on day 1 then 1 tablet by mouth daily for 4 days thereafter . Yanely lee Zoster Vac Recomb Adjuvanted (Shingrix) 50 MCG/0.5 mL Intramuscul ar Recon Suspension 12-16 00:00: 00 12-17 04:59 :00 No [id number] 50ug Inject 0.5 mL (50 mcg total) into the muscle once for 1 dose Yanely lee Isosorbide Mononitrate CR 30 MG oral TABLET SR 24 HR 12-15 00:00: 00 12-16 00:00 :00 No Yanely lee Pravastatin Sodium 40 MG oral Tablet 10-25 00:00: 00 Yes [id number] 40mg Take 1 tablet (40 mg total) by mouth nightly AT BEDTIME Yanely lee Gabapentin 100 MG oral Capsule 10-25 00:00: 00 08-06 00:00 :00 No [id number] 100mg Take 1 capsule (100 mg total) by mouth 3 times daily Yanely lee Insulin Pen Needle 31G X 5 MM does not apply [facility] 10-25 00:00: 00 08-06 00:00 :00 No [id number] Takes insulin QID Yanely lee Levothyroxi ne Sodium 50 MCG oral Tablet 10-25 00:00: 00 08-06 00:00 :00 No [id number] 50ug Take 1 tablet (50 mcg total) by mouth daily Yanely lee Continuous Blood Gluc Transmit (Dexcom G5 Mobile Transmitter ) does not apply Mis 10-25 00:00: 00 05-30 00:00 :00 No [id number] Check BS in the am fasting, before meals and as needed. Yanely lee Empaglifloz in (Jardiance) 10 MG oral Tablet 10-25 00:00: 00 05-01 00:00 :00 No [id number] 1 tablet po Q daily Yanely lee Insulin Aspart (NovoLOG) 100 UNIT/ML injection Solution 10-25 00:00: 00 12-16 00:00 :00 No [id number] INJECT UNDER THE SKIN 15 UNITS THREE TIMES A DAY BEFORE MAJOR MEALS Yanely lee Insulin Glargine (Basaglar KwikPen) 100 UNIT/ML subcutaneou s Solution Pen-injecto r 10-25 00:00: 00 12-16 00:00 :00 No [id number] 85 units SQ nightly Yanely lee Carvedilol 25 MG oral Tablet 09-16 00:00: 00 Yes [id number] TAKE ONE TABLET BY MOUTH TWICE A DAY WITH MEALS Yanely lee Allopurinol 100 MG oral Tablet 08-08 00:00: 00 12-16 00:00 :00 No [id number] TAKE ONE TABLET BY MOUTH DAILY Yanely lee Magnesium Citrate oral Solution 07-21 14:09: 58 Yes 296mL Take 296 mL by mouth once Yanely lee [place]-3 Fatty Acids (Fish Oil Concentrate ) 300 MG oral Capsule 07-21 14:09: 58 Yes [id number] 1{capsu le} Take 1 capsule by mouth daily Yanely lee Multiple Vitamin (MULTI VITAMIN MENS OR) 07-21 14:09: 58 Yes [id number] 1{tbl} Take 1 tablet by mouth nightly Yanely lee Ergocalcife rol 1.25 MG (80067 UT) oral Capsule 07-21 14:09: 58 Yes [id number] Take 50,000 units by mouth once a week Yanely lee Sodium Bicarbonate 650 MG oral Tablet 07-21 14:09: 58 Yes 650mg Take 650 mg by mouth 3 times daily Yanely lee Continuous Blood Gluc Transmit (Dexcom G5 Mobile Transmitter ) does not apply Misc 07-21 00:00: 00 Yes [id number] Check BS in the am fasting, before meals and as needed. Yanely lee Continuous Blood Gluc Electric Motor Mechanic (Dexcom G5 Electric Motor Mechanic Kit) does not apply Device 07-21 00:00: 00 05-30 00:00 :00 No [id number] Check BS in the am fasting, before meals and as needed. Yanely lee Azithromyci n 250 MG oral Tablet 07-21 00:00: 00 07-27 05:59 :00 No [id number] Take 2 tablets by mouth on day [...] MCG oral Tablet 06-21 00:00: 00 Yes [id number] 50ug Take 1 tablet (50 mcg total) by mouth daily Yanely lee Magnesium Citrate oral Solution 2021-06 10:45: 13 Yes 296mL Take 296 mL by mouth once Yanely lee [place]-3 Fatty Acids (Fish Oil Concentrate ) 300 MG oral Capsule 2021-06 10:45: 13 Yes [id number] 1{capsu le} Take 1 capsule by mouth daily Yanely lee Multiple Vitamin (MULTI VITAMIN MENS OR) 2021-06 10:45: 13 Yes [id number] 1{tbl} Take 1 tablet by mouth nightly Yanely lee Ergocalcife rol 1.25 MG (21488 UT) oral Capsule 2021-06 10:45: 13 Yes [id number] Take 50,000 units by mouth once a [...] Solution Pen-injecto r 2021-06 00:00: 00 Yes [id number] 75 units SQ nightly Yanely lee Insulin Pen Needle 31G X 5 MM does not apply [facility] 2021-06 00:00: 00 Yes [id number] Takes insulin QID Yanely lee Empaglifloz in (Jardiance) 10 MG oral Tablet 2021-06 00:00: 00 Yes [id number] 1 tablet po Q daily Yanely lee Furosemide 80 MG oral Tablet 2021-06 00:00: 00 Yes [id number] Yanely lee Clonidine (CATAPRES) 0.2 MG oral Tablet 2021-06 00:00: 00 08-28 00:00 :00 No [id number] .2mg Take 1 tablet (0.2 mg total) by mouth 3 times daily. Yanely lee Bevacizumab (AVASTIN) 100 mg/4 mL - Physician Administere d ([id number]) 2021-06 15:15: 00 04-22 15:32 :00 No [id number] 1.25mg Yanely lee Magnesium Citrate oral Solution 2021-06 09:04: 34 Yes 296mL Take 296 mL by mouth once Yanely lee Fenugreek 500 MG oral Capsule 2021-06 09:04: 34 Yes 2{capsu le} Take 2 capsules by mouth 2 times daily Yanely lee [place]-3 Fatty Acids (Fish Oil Concentrate ) 300 MG oral Capsule 2021-06 09:04: 34 Yes [id number] 1{capsu le} Take 1 capsule by mouth daily Yanely lee Multiple Vitamin (MULTI VITAMIN MENS OR) 2021-06 09:04: 34 Yes [id number] 1{tbl} Take 1 tablet by mouth nightly Yanely lee Ergocalcife rol 1.25 MG (41239 UT) oral Capsule 2021-06 09:04: 34 Yes [id number] Take 50,000 units by mouth once a week Yanely lee Biotin 5 MG oral Capsule 2021-06 09:04: 34 Yes 1{capsu le} Take 1 capsule by mouth daily Yanely lee Sodium Bicarbonate 650 MG oral Tablet 2021-06 09:04: 34 Yes 650mg Take 650 mg by mouth 3 times daily Yanely lee Carvedilol 25 MG oral Tablet 2021-06 00:00: 00 Yes [id number] TAKE ONE TABLET BY MOUTH TWICE A DAY WITH MEALS Yanely lee Insulin Aspart (NovoLOG) 100 UNIT/ML injection Solution 2021-06 00:00: 00 Yes INJECT UNDER THE SKIN 15 UNITS THREE TIMES DAILY BEFOFE MAJOR MEALS Yanely lee Bevacizumab (AVASTIN) 100 mg/4 mL - Physician Administere william ([id number]) 2021-06 14:30: 00 03-11 14:20 :00 No [id number] 1.25mg Yanely lee Magnesium Citrate oral Solution 2021-06 007 08:50: 12 Yes 296mL Take 296 mL by mouth once Yanely lee Fenugreek 500 MG oral Capsule 2021-06 007 08:50: 12 Yes 2{capsu le} Take 2 capsules by mouth 2 times daily Yanely lee [place]-3 Fatty Acids (Fish Oil Concentrate ) 300 MG oral Capsule 2021-06 007 08:50: 12 Yes [id number] 1{capsu le} Take 1 capsule by mouth daily Yanely lee Multiple Vitamin (MULTI VITAMIN MENS OR) 2021-06 0 08:50: 12 Yes [id number] 1{tbl} Take 1 tablet by mouth nightly Yanely lee Ergocalcife rol 1.25 MG (24317 UT) oral Capsule 2021-06 0 08:50: 12 Yes [id number] Take 50,000 units by mouth once a week Yanely lee Biotin 5 MG oral Capsule 2021-06 0 08:50: 12 Yes 1{capsu le} Take 1 [...] capsules by mouth 2 times daily Yanely Yina jesus [place]-3 Fatty Acids (Fish Oil Concentrate ) 300 MG oral Capsule 2021-06 0 08:37: 32 Yes [id number] 1{capsu le} Take 1 capsule by mouth daily Yanely Yina jesus Multiple Vitamin (MULTI VITAMIN MENS OR) 2021-06 0 08:37: 32 Yes [id number] 1{tbl} Take 1 tablet by mouth nightly Yanely lee Ergocalcife rol 1.25 MG (72429 UT) oral Capsule 2021-06 0 08:37: 32 Yes [id number] Take 50,000 units by mouth once a week Yanely lee Biotin 5 MG oral Capsule 2021-06 08:37: 32 Yes 1{capsu le} Take 1 capsule by mouth daily Yanely lee Sodium Bicarbonate 650 MG oral Tablet 2021-06 08:37: 32 Yes 650mg Take 650 mg by mouth 3 times daily Yanely lee Linzess 145 MCG oral Capsule 02-21 00:00: 00 Yes [id number] TAKE ONE CAPSULE BY MOUTH DAILY Yanely [...] MG oral Capsule 01-24 00:00: 00 Yes [id number] 100mg Take 1 capsule (100 mg total) by mouth 3 times daily Yanely lee Pravastatin Sodium 40 MG oral Tablet 01-24 00:00: 00 Yes [id number] 40mg Take 1 tablet (40 mg total) by mouth nightly AT BEDTIME Yanely lee Empaglifloz in (Jardiance) 10 MG oral Tablet 01-24 00:00: 00 05-16 00:00 :00 No [id number] 1 tablet po Q daily Yanely lee Insulin Glargine (Basaglar KwikPen) 100 UNIT/ML subcutaneou s Solution Pen-injecto r 01-24 00:00: 00 05-16 00:00 :00 No [id number] 85 units SQ nightly Yanely lee Insulin Pen Needle 31G X 5 MM does not apply Misc 01-24 00:00: 00 05-16 00:00 :00 No [id number] Takes insulin QID Yanely lee Carvedilol 25 MG oral Tablet 12-29 00:00: 00 Yes TAKE ONE TABLET BY MOUTH TWICE A DAY WITH A MEAL Yanely lee Allopurinol 100 MG oral Tablet 12-29 00:00: 00 Yes [id number] TAKE ONE TABLET BY MOUTH DAILY Yanely [...] by mouth 2 times daily Yanely Jarrett [place]-3 Fatty Acids (Fish Oil Concentrate ) 300 MG oral Capsule 10-29 07:59: 40 Yes [id number] 1{capsu le} Take 1 capsule by mouth [...] 09-24 14:15: 00 09-24 14:11 :00 No [id number] 1.25mg Yanely stew Potassium 99 MG oral Tablet 09-24 08:21: 31 Yes 1{tbl} Take 1 tablet by mouth daily Yanely Jarrett GLUCOSAMINE -FISH OIL-EPA-DHA OR 09-24 08:21: 31 Yes 1{capsu le} Take 1 capsule by mouth daily Yanely Jarrett Aspirin 81 MG oral Capsule 09-24 08:21: 31 Yes 1{capsu le} Take 1 capsule by mouth daily Yanely stew Magnesium Citrate oral Solution 09-24 08:21: 31 Yes 296mL Take 296 mL by mouth once Yanely Jarrett Fenugreek 500 MG oral Capsule 09-24 08:21: 31 Yes 2{capsu le} Take 2 capsules by mouth 2 times daily Yanely Jarrett [place]-3 Fatty Acids (Fish Oil Concentrate ) 300 MG oral Capsule 09-24 08:21: 31 Yes [id number] 1{capsu le} Take 1 capsule by mouth daily Yanely ybold Potassium 99 MG oral Tablet 08-25 08:04: 08 Yes 1{tbl} Take 1 tablet by mouth daily Yanely Jarrett GLUCOSAMINE -FISH OIL-EPA-DHA OR 08-25 08:04: 08 Yes 1{capsu le} Take 1 capsule by mouth daily Yanely Seybold Aspirin 81 MG oral Capsule 08-25 08:04: 08 Yes 1{capsu le} Take 1 capsule by mouth daily Yanely Ahmadiybold Magnesium Citrate oral Solution 08-25 08:04: 08 Yes 296mL Take 296 mL by mouth once Yanely Jarrett Fenugreek 500 MG oral Capsule 08-25 08:04: 08 Yes 2{capsu le} Take 2 capsules by mouth 2 times daily Yanely Jarrett [place]-3 Fatty Acids (Fish Oil Concentrate ) 300 MG oral Capsule 08-25 08:04: 08 Yes [id number] 1{capsu le} Take 1 capsule by mouth daily Yanely Jarrett Azithromyci n 250 MG oral Tablet 08-25 00:00: 00 Yes [id number] Take 2 tablets by mouth on day 1 then 1 tablet by mouth daily for 4 days thereafter . Yanely Jarrett cloNIDine 0.1 mg tablet 08-18 00:00: 00 Yes [id number] .1mg Take 1 tablet by mouth 2 (two) times daily. [facility] Bevacizumab (AVASTIN) 100 mg/4 mL - Physician Administere d ([id number]) 08-13 16:00: 00 08-13 16:05 :00 No [id number] 1.25mg Yanely Jarrett Potassium 99 MG oral [...] by mouth 2 times daily Yanely Jarrett [place]-3 Fatty Acids (Fish Oil Concentrate ) 300 MG oral Capsule 08-13 10:03: 24 Yes [id number] 1{capsu le} Take 1 capsule by mouth daily Yanely Jarrett Potassium 99 MG oral Tablet 08-09 10:52: [...] by mouth 2 times daily Yanely Jarrett [place]-3 Fatty Acids (Fish Oil Concentrate ) 300 MG oral Capsule 08-09 10:52: 24 Yes [id number] 1{capsu le} Take 1 capsule by mouth daily Yanely Jarrett Insulin Aspart (NovoLOG) 100 UNIT/ML subcutaneou s Solution 08-09 00:00: 00 Yes [id number] 15 units SQ before major meals TID Yanely Jarrett Empaglifloz in (Jardiance) 10 MG oral Tablet 08-09 00:00: 00 Yes [id number] 1 tablet po Q daily Yanely Jarrett Gabapentin 100 MG oral Capsule 08-09 00:00: 00 Yes [id number] 100mg Take 1 capsule (100 mg total) by mouth 3 times daily Yanely Jarrett Insulin Glargine (Basaglar KwikPen) 100 UNIT/ML subcutaneou s Solution Pen-injecto r 08-09 00:00: 00 Yes [id number] 85 units SQ nightly Yanely Jarrett Insulin Pen Needle 31G X 5 MM does not apply Misc 08-09 00:00: 00 Yes [id number] Takes insulin QID Yanely Jarrett GlipiZIDE 10 MG oral TABLET SR 24 HR 08-09 00:00: 00 Yes [id number] 10mg Take 1 tablet (10 mg total) by mouth in the morning. Yanely Jarrett Insulin Aspart (NovoLOG) 100 UNIT/ML subcutaneou s Solution 08-09 00:00: 00 Yes [id number] 15 units SQ before major meals TID Yanely Jarrett - Externa l Allopurinol 100 MG oral Tablet 08-03 00:00: 00 Yes [id number] 100mg Take 1 tablet (100 mg total) by mouth daily Yanely Jarrett Pravastatin Sodium 40 MG oral Tablet 08-03 00:00: 00 Yes [id number] TAKE ONE TABLET BY MOUTH EVERY NIGHT [...] 07-02 14:15: 00 07-02 14:29 :00 No [id number] 1.25mg Yanely Jarrett Potassium 99 MG oral [...] by mouth 2 times daily Yanely Jarrett [place]-3 Fatty Acids (Fish Oil Concentrate ) 300 MG oral Capsule 07-02 08:24: 50 Yes [id number] 1{capsu le} Take 1 capsule by mouth daily Yanely Jarrett Bevacizumab (AVASTIN) 100 mg/4 mL - Physician Administere d ([id number]) 2020-06 14:45: 00 05-21 14:34 :00 No [id number] 1.25mg Yanely Seybold Potassium 99 MG oral Tablet 2020-06 08:04: 02 Yes 1{tbl} Take 1 tablet by mouth daily Yanely Luiza GLUCOSAMINE -FISH OIL-EPA-DHA OR 2020-06 08:04: 02 Yes 1{capsu le} Take 1 capsule by mouth daily Yanely B[place]old Aspirin 81 MG oral Capsule 2020-06 08:04: 02 Yes 1{capsu le} Take 1 capsule by mouth daily Yanely Sestew Magnesium Citrate oral Solution 2020-06 08:04: 02 Yes 296mL Take 296 mL by mouth once Yanely Jarrett Fenugreek 500 MG oral Capsule 2020-06 08:04: 02 Yes 2{capsu le} Take 2 capsules by mouth 2 times daily Yanely Jarrett [place]-3 Fatty Acids (Fish Oil Concentrate ) 300 MG oral Capsule 2020-06 08:04: 02 Yes [id number] 1{capsu le} Take 1 capsule by mouth daily Yanely Jarrett Allopurinol 100 MG oral Tablet 2020-06 00:00: 00 Yes [id number] 100mg Take 1 tablet (100 mg total) by mouth daily Yanely Jarrett Gabapentin 100 MG oral Capsule 2020-06 00:00: 00 Yes 100mg Take 1 capsule (100 mg total) by mouth 3 times daily Yanely Jarrett Bevacizumab (AVASTIN) 100 mg/4 mL - Physician Administerkenzie thomas ([id number]) 2020-06 14:15: 00 04-23 14:19 :00 No [id number] 1.25mg Yanely Ahmadialexemmanuel Potassium 99 MG oral Tablet 2020-06 08:17: [...] by mouth 2 times daily Yanely Jarrett [place]-3 Fatty Acids (Fish Oil Concentrate ) 300 MG oral Capsule 2020-06 08:17: 22 Yes [id number] 1{capsu le} Take 1 capsule by mouth daily Yanely Jarrett Allopurinol 100 MG oral Tablet 2020-06 08:17: 22 Yes [id number] 100mg Take 100 mg by mouth daily Yanely Jarrett Bevacizumab (AVASTIN) 100 mg/4 mL - Physician Administere d ([id number]) 2020-06 14:30: 00 03-19 14:23 :00 No [id number] 1.25mg Yanely Jarrett Potassium 99 MG oral [...] by mouth 2 times daily Yanely Jarrett [place]-3 Fatty Acids (Fish Oil Concentrate ) 300 MG oral Capsule 2020-06 09:06: 12 Yes [id number] 1{capsu le} Take 1 capsule by mouth daily Yanely Jarrett Allopurinol 100 MG oral Tablet 2020-06 09:06: 12 Yes [id number] 100mg Take 100 mg by mouth daily Yanely Jarrett Insulin Aspart (NovoLOG) 100 UNIT/ML subcutaneou s Solution 2020-06 00:00: 00 08-09 00:00 :00 No [id number] 15 units SQ before major meals TID Yanely Jarrett Insulin Glargine (Basaglar KwikPen) 100 UNIT/ML subcutaneou s Solution Pen-injecto r 2020-06 00:00: 00 08-09 00:00 :00 No 85 [...] by mouth 2 times daily Yanely Jarrett [place]-3 Fatty Acids (Fish Oil Concentrate ) 300 MG oral Capsule 2020-06 14:59: 04 Yes [id number] 1{capsu le} Take 1 capsule by mouth daily Yanely Jarrett Allopurinol 100 MG oral Tablet 2020-06 14:59: 04 Yes [id number] 100mg Take 100 mg by mouth daily Yanely Jarrett Insulin Glargine, 1 Unit Dial, (Toujeo SoloStar) 300 UNIT/ML subcutaneou s Solution Pen-injecto r 2020-06 00:00: 00 Yes [id number] 80 units SQ once nightly at bedtime Yanely Jarrett Insulin Aspart (NovoLOG FlexPen) 100 UNIT/ML subcutaneou s Solution Pen-injecto r 2020-06 00:00: 00 Yes [id number] 15 units SQ before major meals TID Yanely Jarrett Pravastatin Sodium 40 MG oral Tablet 2020-06 00:00: 00 Yes [id number] 40mg Take 1 tablet (40 mg total) by mouth nightly Yanely Jarrett Insulin Pen Needle 31G X 5 MM does not apply Misc 2020-06 0 00:00: 00 08-09 00:00 :00 No [id number] Takes insulin QID Yanely Jarrett Empaglifloz in (Jardiance) 10 MG oral Tablet 2020-06 0 00:00: 00 08-09 00:00 :00 No [id number] 1 tablet po Q daily Yanely Jarrett [...] MCG oral Capsule 02-17 00:00: 00 Yes [id number] 145ug Take 1 capsule (145 mcg total) by mouth daily Yanely Jarrett Sod Picosulfate -Mag Ox-Cit Acd (Clenpiq) 10-3.5-12 MG-GM -GM/160ML oral Solution 02-17 00:00: 00 Yes [id number] Instructio n given to patient in clinic. Use as directed by provider during office visit. Yanely Jarrett Bevacizumab (AVASTIN) 100 mg/4 mL - Physician Imelda thomas ([id number]) 02-12 19:15: 00 02-12 19:17 :00 No [id number] 1.25mg Yanely Jarrett SitaGLIPtin -MetFORMIN HCl 50-1000 [...] 300 UNIT/ML subcutaneou s Solution Pen-injecto r -05 00:00: 00 03-07 04:59 :00 No 100U/d Inject 100 units/day into the skin daily Yanely Jarrett carvedilol 25 mg tablet 06-19 12:05: 06 06-19 00:00 :00 No 25mg Take 25 mg by mouth 2 (two) times daily with meals. [facility] SITagliptin -metformin (JANUMET XR) 50-1,000 mg per tablet 06-19 11:36: 23 Yes 2{tbl} Take 2 tablets by mouth at bedtime. [facility] primidone 50 mg tablet 06-19 11:20: 29 Yes 50mg Take 50 mg by mouth 2 (two) times daily. [facility] amitriptyli ne 10 mg tablet 06-19 11:20: 29 Yes 10mg Take 10 mg by mouth daily. [facility] allopurinol 100 mg tablet 06-19 11:20: 29 Yes 100mg Take 100 mg by mouth daily. [facility] insulin glargine,glo m.rec.anlog (TOUJEO MAX U-300 SOLOSTAR SC) 06-19 11:20: 29 Yes 80U inject 80 Units under the skin every morning. [facility] pravastatin 40 mg tablet 06-19 00:00: 00 Yes [id number] 40mg Take 1 tablet by mouth at bedtime. [facility] hydrALAZINE HCl 50 MG oral Tablet 06-19 00:00: 00 Yes 50mg [id number] 3D Take 1 tablet (50 mg total) [...] 06-19 00:00: 00 08-18 00:00 :00 No [id number] .1mg Take 1 tablet by mouth 2 (two) times daily. [facility] cloNIDine 0.1 mg tablet 06-16 00:00: 00 06-19 00:00 :00 No .1mg Take 1 tablet by mouth 2 (two) times daily. Need appointmen t and EKG for further refills. Please contact office. [facility] furosemide 40 mg tablet -12 00:00: 00 06-19 00:00 :00 No 40mg Take 1 tablet by mouth daily. [facility] gabapentin 100 mg capsule 1-06 00:00: 00 Yes 3 (three) times daily. [facility] pravastatin 40 mg tablet 2019-06 2-16 00:00: 00 06-19 00:00 :00 No [id number] 40mg Take 1 tablet by mouth at bedtime. [facility] hydrALAZINE 50 mg tablet 5-18 00:00: 00 06-19 00:00 :00 No 50mg Take 1 tablet by mouth every 8 (eight) hours. [facility] Immunizations Ordered Immunization Name Filled [...] Protein, Pf 2020-09-09 00:00:00 Completed Yanely ybold Covid-19 Vaccine (Moderna), Mrna-lnp, Jesse Protein, Pf, [...] 2020-08-12 00:00:00 Completed Yanely Jarrett Covid-19 Vaccine (Moderna), Mrna-lnp, Jesse Protein, Pf, 100 Mcg/0.5ml,IM 2020-08-12 00:00:00 Completed Yanely Jarrett Covid-19 Vaccine Moderna (Spikevax), Mrna-lnp, Jesse Protein, Pf 2020-08-12 00:00:00 Completed Yanely Jarrett Covid-19 Vaccine Moderna (Spikevax), Mrna-lnp, Jesse Protein, Pf 2020-08-12 00:00:00 Completed Yanely Jarrett Covid-19 Vaccine Moderna (Spikevax), Mrna-lnp, Jesse Protein, Pf 2020-08-12 00:00:00 Completed Yanely Jarrett Covid-19 Vaccine Moderna (Spikevax), Mrna-lnp, Jesse Protein, Pf 2020-08-12 00:00:00 Completed Yanely Jarrett Covid-19 Vaccine Moderna (Spikevax), Mrna-lnp, Jesse Protein, Pf 2020-08-12 00:00:00 Completed Yanely Jarrett Covid-19 Vaccine (Moderna), Mrna-lnp, Jesse Protein, Pf, [...] External Influenza Virus Vaccine 2020-04-05 00:00:00 Completed [facility] Influenza Virus Vaccine 2020-04-05 00:00:00 Completed [facility] Influenza Virus Vaccine 2020-04-05 00:00:00 Completed [facility] Influenza Virus Vaccine 2020-04-05 00:00:00 Completed [facility] Influenza Virus Vaccine 2020-04-05 00:00:00 Completed [facility] Influenza Virus Vaccine 2020-04-05 00:00:00 Completed [facility] Influenza Virus Vaccine 2020-04-05 00:00:00 Completed [facility] Influenza Virus Vaccine 2020-04-05 00:00:00 Completed [facility] Influenza Virus Vaccine 2020-04-05 00:00:00 Completed [facility] Influenza Virus Vaccine 2020-04-05 00:00:00 Completed [facility] Influenza Virus Vaccine Quad .5 mL IM 6+ MO 2019-04-10 00:00:00 Completed [facility] Pneumococcal Polysaccharide, PPSV23 (PNEUMOVAX) 2019-04-10 00:00:00 Completed [facility] Influenza Virus Vaccine Quad .5 mL IM 6+ MO 2019-04-10 00:00:00 Completed [facility] Pneumococcal Polysaccharide, PPSV23 (PNEUMOVAX) 2019-04-10 00:00:00 Completed [facility] Influenza Virus Vaccine Quad .5 mL IM 6+ MO 2019-04-10 00:00:00 Completed [facility] Pneumococcal Polysaccharide, PPSV23 (PNEUMOVAX) 2019-04-10 00:00:00 Completed [facility] Influenza Virus Vaccine Quad .5 mL IM 6+ MO 2019-04-10 00:00:00 Completed [facility] Pneumococcal Polysaccharide, PPSV23 (PNEUMOVAX) 2019-04-10 00:00:00 Completed [facility] Influenza Virus Vaccine Quad .5 mL IM 6+ MO 2019-04-10 00:00:00 Completed [facility] Pneumococcal Polysaccharide, PPSV23 (PNEUMOVAX) 2019-04-10 00:00:00 Completed [facility] Influenza Virus Vaccine Quad .5 mL IM 6+ MO 2019-04-10 00:00:00 Completed [facility] Pneumococcal Polysaccharide, PPSV23 (PNEUMOVAX) 2019-04-10 00:00:00 Completed [facility] Influenza Virus Vaccine Quad .5 mL IM 6+ MO 2019-04-10 00:00:00 Completed [facility] Pneumococcal Polysaccharide, PPSV23 (PNEUMOVAX) 2019-04-10 00:00:00 Completed [facility] Influenza Virus Vaccine Quad .5 mL IM 6+ MO 2019-04-10 00:00:00 Completed [facility] Pneumococcal Polysaccharide, PPSV23 (PNEUMOVAX) 2019-04-10 00:00:00 Completed [facility] Influenza Virus Vaccine Quad .5 mL IM 6+ MO 2019-04-10 00:00:00 Completed [facility] Pneumococcal Polysaccharide, PPSV23 (PNEUMOVAX) 2019-04-10 00:00:00 Completed [facility] Influenza Virus Vaccine Quad .5 mL IM 6+ MO 2019-04-10 00:00:00 Completed [facility] Influenza Virus Vaccine, No Preserv, age 6 months and up 2019-04-10 00:00:00 Completed Yanely Jarrett - External Pneumococcal Vaccine, Polysaccharide 2019-04-10 00:00:00 Completed Yanely Jarrett - External Influenza Virus Vaccine, No [...] Pneumococcal Vaccine, Polysaccharide 2019-04-10 00:00:00 Completed Yanely Ahmadiybold - External Pneumococcal Polysaccharide, PPSV23 (PNEUMOVAX) 2019-04-10 00:00:00 Completed [facility] Covid-19 Vaccine Moderna (Spikevax), Mrna-lnp, Jesse Protein, [...] External Pneumococcal Vaccine, Polysaccharide Unknown Completed Yanely Ahmadiybol d - External Influenza Virus Vaccine, age [...] Preservative Unknown Completed Yanely Seybold - External AFLURIA TRIVALENT MDV Unknown Completed Yanely Seybold - External COVID-19 Vaccine(Pfizer)(12yr s+) Unknown Completed Yanely Seybold - External Covid-19 [...] Preservative Unknown Completed Yanely Seybold - External AFLURIA TRIVALENT MDV Unknown Completed Yanely Seybold - External COVID-19 Vaccine(Pfizer)(12yr s+) Unknown Completed Yanely Seybold - External Vital Signs Vital Name Observation Time Observation Value Comments S ource Systolic blood pressure 2024-11-26 19:02:00 158 mm[Hg] Yanely Seybold - External Diastolic blood pressure 2024-11-26 19:02:00 86 mm[Hg] Yanely Seybold - External Heart rate 2024-11-26 19:02:00 69 /min Yanely Seybold - External Body temperature 2024-11-26 18:54:00 36.67 Peggy Yanely Seybold - External Respiratory rate 2024-11-26 18:54:00 16 /min Yanely Seybold - External Body height 2024-11-26 18:54:00 188 cm Yanely Ahmadiybold - External Body weight 2024-11-26 18:54:00 164.202 kg Yanely Seybold - External BMI 2024-11-26 18:54:00 46.48 kg/m2 Yanely Ahmadiybold - External Oxygen saturation in Arterial blood by Pulse oximetry 2024-11-26 18:54:00 97 /min Yanely Seybold - External Systolic blood pressure 2024-07-04 16:09:00 146 mm[Hg] Yanely Seybold - External Diastolic blood pressure 2024-07-04 16:09:00 80 mm[Hg] Yanely Seybold - External Heart rate 2024-07-04 16:01:00 86 /min Yanely Seybold - External Body temperature 2024-07-04 16:01:00 36.78 Peggy Yanely Ahmadiybold - External Respiratory rate 2024-07-04 16:01:00 20 /min Yanely Ahmadiybold - External Body height 2024-07-04 16:01:00 188 cm Yanely Seybold - External Body weight 2024-07-04 16:01:00 164.202 kg Yanely Seybold - External BMI 2024-07-04 16:01:00 46.48 kg/m2 Yanely Seybold - External Oxygen saturation in Arterial blood by Pulse oximetry 2024-07-04 16:01:00 100 /min Yanely Seybold - External Systolic blood pressure 2023-08-29 14:46:00 140 mm[Hg] Yanely Seybold - External Diastolic blood pressure 2023-08-29 14:46:00 [...] Body temperature 2022-05-16 16:46:00 36.67 Peggy Yanely Jarrett - External Respiratory rate 2022-05-16 16:46:00 18 [...] Heart rate 2021-08-25 12:58:00 78 /min Yanely Ahmadiybold Body temperature 2021-08-25 12:58:00 35.67 Peggy Yanely Ahmadiybold Respiratory rate 2021-08-25 12:58:00 16 /min Yanely Jarrett Body height 2021-08-25 12:58:00 188 cm Yanely Jarrett Body weight 2021-08-25 12:58:00 160.12 kg Yanely Jarrett BMI 2021-08-25 12:58:00 45.32 kg/m2 Yanely Jarrett Oxygen saturation in Arterial blood by Pulse oximetry 2021-08-25 12:58:00 100 /min Yanely Jarrett Systolic blood pressure 2021-08-09 16:54:00 162 mm[Hg] Yanely Ahmadiybemmanuel Diastolic blood pressure 2021-08-09 16:54:00 90 mm[Hg] Yanely Jarrett Heart rate 2021-08-09 16:54:00 78 /min Yanely Jarrett Body temperature 2021-08-09 16:54:00 36.61 Peggy Yanely Ahmadiybold Respiratory rate 2021-08-09 16:54:00 16 /min Yanely Jarrett Body height 2021-08-09 16:54:00 188 cm Yanely Jarrett Body weight 2021-08-09 16:54:00 156.491 kg Yanely Jarrett BMI 2021-08-09 16:54:00 44.30 kg/m2 Yanely Seybold Oxygen saturation in Arterial blood by Pulse oximetry 2021-08-09 16:54:00 98 /min Yanely Jarrett Systolic blood pressure 2021-03-15 19:49:00 [...] Systolic blood pressure 2020-06-19 17:39:00 156 mm[Hg] [facility] Diastolic blood pressure 2020-06-19 17:39:00 92 mm[Hg] [facility] Heart rate 2020-06-19 17:31:00 86 /min [facility] Respiratory rate 2020-06-19 17:31:00 19 /min [facility] Body height 2020-06-19 17:31:00 185.4 cm [facility] Body weight 2020-06-19 17:31:00 150.685 kg [facility] BMI 2020-06-19 17:31:00 43.83 kg/m2 [facility] Oxygen saturation in Arterial blood by Pulse oximetry 2020-06-19 17:31:00 95 /min [facility] Procedures Procedure Date / Time Performed Performing Clinician Source AUTHORIZATION FOR RELEASE OF PHI 2022-06-02 06:01:00 Doctor Unassigned, [place] [facility] REAGENT STRIP/BLOOD GLUCOSE 2022-05-16 00:00:00 Outside, Reported Yanely Jarrett - External AUTHORIZATION FOR RELEASE OF PHI 2022-05-03 06:01:00 Doctor Unassigned, [place] [facility] AUTHORIZATION FOR RELEASE OF PHI 2022-04-27 06:01:00 Doctor Unassigned, [place] [facility] REAGENT STRIP/BLOOD GLUCOSE 2021-08-09 16:57:00 Krystyna Johnson REAGENT STRIP/BLOOD GLUCOSE 2021-03-15 20:00:00 Krystyna Johnson MEDICAL RELEASE/CLEARANCE FORMS 2021-02-22 05:01:00 Doctor Unassigned, [place] [facility] NE ELECTROCARDIOGRAM, COMPLETE 2020-06-19 17:36:18 Domenica Shukla [facility] Encounters Start Date/Time End Date/Time Encounter Type Admission Type Attending [facility] Care Department Encounter ID Source 2025-02-19 00:00:00 2025-02-19 00:00:00 Outpatient LETHA RODRIGUEZ [id number] Yanely Jarrett 2025-02-04 00:00:00 2025-02-04 00:00:00 Outpatient EVA ALMAGUER [id number] Yanely Jarrett 2025-01-29 00:00:00 2025-01-29 00:00:00 Outpatient MD YANELY BALLARD [id number] Yanely Jarrett 2025-01-27 00:00:00 2025-01-27 00:00:00 Outpatient KRYSTYNA JOHNSON [id number] Yanely Jarrett 2025-01-03 00:00:00 2025-01-03 00:00:00 Outpatient GAVIOTA COSTA Y[facility]ELY BRUCE [id number] [facility] 2025-01-02 00:00:00 2025-01-02 00:00:00 Outpatient GAVIOTA COSTA YANELY BRUCE [id number] [facility] 2025-01-02 00:00:00 2025-01-02 00:00:00 Outpatient GAVIOTA COSTA YANELY BRUCE [id number] [facility] 2025-01-01 00:00:00 2025-01-01 00:00:00 Outpatient MISA ALMAGUERA YANELY BRUCE [id number] [facility] 2024-12-30 00:00:00 2024-12-30 00:00:00 Outpatient MD YANELY BALLARD [id number] Yanely [facility] 2024-12-29 00:00:00 2024-12-29 00:00:00 Outpatient KRYSTYNA JOHNSON [id number] [facility] 2024-12-29 00:00:00 2024-12-29 00:00:00 Outpatient JANICEDAX Ludwig YANELY BRUCE [id number] [facility] 2024-12-27 00:00:00 2024-12-27 00:00:00 Outpatient GAVIOTA COSTA YANELY BRUCE [id number] [facility] 2024-12-26 00:00:00 2024-12-26 00:00:00 Outpatient YANELY BRUCE [id number] [facility] 2024-12-24 09:30:00 2024-12-24 09:30:00 Outpatient MISA ALMAGUERA YANELY BRUCE [id number] [facility] 2024-12-16 00:00:00 2024-12-16 00:00:00 Outpatient YANELY BRUCE [id number] Yanely Seybemmanuel 2024-12-13 00:00:00 2024-12-13 00:00:00 Outpatient [facility]ELY BRUCE [id number] [facility] 2024-12-12 00:00:00 2024-12-12 00:00:00 Outpatient MD YANELY BALLARD [id number] Yanely Seybemmanuel 2024-12-07 00:00:00 2024-12-07 00:00:00 Outpatient KRYSTYNA JOHNSON YANELY BRUCE [id number] [facility] 2024-11-26 14:55:00 2024-11-26 14:55:00 Outpatient HARJINDER YANELY BRUCE [id number] [facility] 2024-11-26 14:00:00 2024-11-26 14:00:00 Outpatient EVA ALMAGUER YANELY BRUCE [id number] [facility] 2024-11-21 00:00:00 2024-11-21 00:00:00 Outpatient Y[facility]ELY BRUCE [id number] [facility] 2024-09-27 00:00:00 2024-09-27 00:00:00 Outpatient GAVIOTA COSTA YANELY BRUCE [id number] [facility] 2024-09-17 00:00:00 2024-09-17 00:00:00 Outpatient COSTA, GAVIOTA YANELY BRUCE [id number] [facility] 2024-09-04 00:00:00 2024-09-04 00:00:00 Outpatient COSTAGAVIOTA WALLACE YANELY BRUCE [id number] [facility] 2024-09-02 00:00:00 2024-09-02 00:00:00 Outpatient GAVIOTA COSTA YANELY BRUCE [id number] [facility] 2024-08-30 00:00:00 2024-08-30 00:00:00 Outpatient COSTAGAVIOTA WALLACE [id number] [facility] 2024-[facility]-21 00:00:00 2024-08-21 00:00:00 Outpatient PREZADAX Ludwig [id number] Yanely Seybold 2024-08-21 00:00:00 2024-08-21 00:00:00 Outpatient BECCA RODRIGUEZAN YANELY BRUCE [id number] Yanely Seybold 2024-08-14 00:00:00 2024-08-14 00:00:00 Outpatient ELIZABETHKRYSTYNA YANELY BRUCE [id number] [facility] 2024-08-14 00:00:00 2024-08-14 00:00:00 Outpatient JENNIFERLETHA YANELY BRUCE [id number] [facility] 2024-08-14 00:00:00 2024-08-14 00:00:00 Outpatient DAX PRADO YANELY BRUCE [id number] [facility] 2024-08-08 00:00:00 2024-08-08 00:00:00 Outpatient Y[facility]ELY BRUCE [id number] [facility] 2024-07-28 00:00:00 2024-07-28 00:00:00 Outpatient KRYSTYNA JOHNSON YANELY BRUCE [id number] [facility] 2024-07-17 13:30:00 2024-07-17 13:30:00 Outpatient ESTUARDOANA LAURA YANELY BRUCE [id number] [facility] 2024-07-11 00:00:00 2024-07-11 00:00:00 Outpatient GAVIOTA COSTA [id number] [facility] 2024-07-09 00:00:00 2024-07-09 00:00:00 Outpatient PREZAOziel, DAX YANELY BRUCE [id number] [facility] 2024-07-08 00:00:00 2024-07-08 00:00:00 Outpatient GAVIOTA COSTA [id number] [facility] 2024-07-05 14:30:00 2024-07-05 14:30:00 Outpatient GAVIOTA COSTA [id number] [facility] 2024-07-04 11:00:00 2024-07-04 11:00:00 Outpatient EBN560Samantha BRUCE [id number] [facility] 2024-07-04 10:00:00 2024-07-04 10:00:00 Outpatient GAVIOTA COSTA [id number] [facility] 2024-07-04 00:00:00 2024-07-04 00:00:00 Outpatient YANELY BRUCE [id number] [facility] 2024-07-03 08:00:00 2024-07-03 08:00:00 Outpatient GAVIOTA COSTA [id number] [facility] 2024-06-26 10:30:00 2024-06-26 10:30:00 Outpatient DAX PRADO YANELY BRUCE [id number] [facility] 2024-05-31 00:00:00 2024-05-31 00:00:00 Outpatient JENNIFER LETHA BRUCE [id number] [facility] 2024-05-24 14:30:00 2024-05-24 14:30:00 Outpatient KENJI WEAVER YANELY BRUCE [id number] [facility] 2024-05-21 00:00:00 2024-05-21 00:00:00 Outpatient PREZADAX Ludwig YANELY BRUCE [id number] [facility] 2024-05-14 00:00:00 2024-05-14 00:00:00 Outpatient PREZASDAX YANELY BRUCE [id number] [facility] 2024-04-26 00:00:00 2024-04-26 00:00:00 Outpatient YANELY BRUCE [id number] [facility] 2024-04-19 00:00:00 2024-04-19 00:00:00 Outpatient PREZASDAX YANELY BRUCE [id number] [facility] 2024-03-25 00:00:00 2024-03-25 00:00:00 Outpatient YANELY BRUCE [id number] [facility] 2024-02-27 00:00:00 2024-02-27 00:00:00 Outpatient PREZADAX Ludwig YANELY BRUCE [id number] [facility] 2024-02-27 00:00:00 2024-02-27 00:00:00 Outpatient ISABELLCARLOS James [id number] [facility] 2024-02-27 00:00:00 2024-02-27 00:00:00 Outpatient JENNIFER LETHA BRUCE [id number] [facility] 2024-02-18 00:00:00 2024-02-18 00:00:00 Outpatient CARLOS NOEL [id number] [facility] 2024-02-11 00:00:00 2024-02-11 00:00:00 Outpatient PREZADAX Ludwig YANELY BRUCE [id number] [facility] 2024-01-11 00:00:00 2024-01-11 00:00:00 Outpatient PREZADAX Ludwig YANELY BRUCE [id number] [facility] 2024-01-11 00:00:00 2024-01-11 00:00:00 Outpatient KRYSTYNA JOHNSON YANELY BRUCE [id number] [facility] 2024-01-04 08:45:00 2024-01-04 08:45:00 Outpatient PREZASDAX YANELY BRUCE [id number] [facility] 2023-12-08 00:00:00 2023-12-08 00:00:00 Outpatient KRYSTYNA JOHNSON YANELY BRUCE [id number] [facility] 2023-11-29 08:30:00 2023-11-29 08:30:00 Outpatient PREZASDAX YANELY BRUCE [id number] [facility] 2023-11-27 00:00:00 2023-11-27 00:00:00 Outpatient CARLOS NOEL YANELY BRUCE [id number] [facility] 2023-11-27 00:00:00 2023-11-27 00:00:00 Outpatient PREZADAX Ludwig YANELY BRUCE [id number] [facility] 2023-10-28 00:00:00 2023-10-28 00:00:00 Outpatient ELIZABETHKRYSTYNA YANELY BRUCE [id number] [facility] 2023-09-14 00:00:00 2023-09-14 00:00:00 Outpatient YANELY BRUCE [id number] [facility] 2023-09-10 00:00:00 2023-09-10 00:00:00 Outpatient LETHA RODRIGUEZ [id number] [facility] 2023-08-31 00:00:00 2023-08-31 00:00:00 Outpatient PREZAALICIA LudwigMAU BRUCE [id number] [facility] 2023-08-29 10:20:00 2023-08-29 10:20:00 Outpatient LAB90 YANELY BRUCE [id number] [facility] 2023-08-29 09:30:00 2023-08-29 09:30:00 Outpatient DAX PRADO YANELY BRUCE [id number] [facility] Jarrett 2023-08-29 00:00:00 2023-08-29 00:00:00 Outpatient DAX PRADO YANELY BRUCE [id number] [facility] 2023-08-07 08:45:00 2023-08-07 08:45:00 Outpatient KRYSTYNA JOHNSON [id number] [facility] 2023-06-27 16:45:00 2023-06-27 16:45:00 Outpatient DAX PRADO YANELY BRUCE [id number] [facility] 2023-06-26 00:00:00 2023-06-26 00:00:00 Outpatient MD YANELY BALLARD [id number] [facility] 2023-06-26 00:00:00 2023-06-26 00:00:00 Outpatient LETHA RODRIGUEZ [id number] [facility] 2023-06-15 11:45:00 2023-06-15 11:45:00 Outpatient DAX PRADO YANELY BRUCE [id number] [facility] 2023-06-15 00:00:00 2023-06-15 00:00:00 Outpatient YANELY BRUCE [id number] [facility] 2023-06-15 00:00:00 2023-06-15 00:00:00 Outpatient DAX PRADO YANELY BRUCE [id number] [facility] 2023-06-15 00:00:00 2023-06-15 00:00:00 Outpatient YANELY BRUCE [id number] [facility] 2023-06-14 00:00:00 2023-06-14 00:00:00 Outpatient LETHA RODRIGUEZ [id number] [facility] 2023-06-14 00:00:00 2023-06-14 00:00:00 Outpatient KRYSTYNA JOHNSON [id number] [facility] 2023-06-12 00:00:00 2023-06-12 00:00:00 Outpatient DAX PRADO YANELY BRUCE [id number] [facility] Jar[facility] 2023-06-12 00:00:00 2023-06-12 00:00:00 Outpatient YANELY BRUCE [id number] [facility] Luiza 2023-06-07 00:00:00 2023-06-07 00:00:00 Outpatient DAX PRADO YANELY BRUCE [id number] [facility] 2023-05-30 08:15:00 2023-05-30 08:15:00 Outpatient PREDAX HARRIS YANELY BRUCE [id number] [facility] 2023-05-30 00:00:00 2023-05-30 00:00:00 Outpatient ALICIA PRADOMAU BRUCE [id number] [facility] 2023-05-16 14:00:00 2023-05-16 14:00:00 Outpatient ROGERSLARA MEANS YANELY BRUCE [id number] [facility] 2023-05-16 00:00:00 2023-05-16 00:00:00 Outpatient JACKY MATHEW [id number] [facility] 2023-05-15 08:30:00 2023-05-15 08:30:00 Outpatient JACKY MATHEW [id number] [facility] 2023-05-15 00:00:00 2023-05-15 00:00:00 Outpatient MD YANELY BALLARD [id number] [facility] 2023-05-12 00:00:00 2023-05-12 00:00:00 Outpatient JACKY MATHEW [id number] [facility] 2023-05-10 00:00:00 2023-05-10 00:00:00 Outpatient YANELY BRUCE [id number] [facility] 2023-05-03 00:00:00 2023-05-03 00:00:00 Outpatient JOHAN DAX YANELY BRUCE [id number] [facility] 2023-05-01 10:30:00 2023-05-01 10:30:00 Outpatient DAX PRADO YANELY [id number] [facility] 2023-05-01 09:45:00 2023-05-01 09:45:00 Outpatient KRYSTYNA JOHNSON YANELY [id number] [facility] 2023-05-01 00:00:00 2023-05-01 00:00:00 Outpatient DAX PRADO YANELY [id number] [facility] 2023-04-25 09:30:00 2023-04-25 09:30:00 Outpatient PREZADAX Ludwig YANELY [id number] [facility] 2023-04-18 14:00:00 2023-04-18 14:00:00 Outpatient ROGERSLARA BARRIOS YANELY BRUCE [id number] [facility] 2023-04-11 11:30:00 2023-04-11 11:30:00 Outpatient DAX PRADO YANELY YANELY [id number] [facility] 2023-04-07 00:00:00 2023-04-07 00:00:00 Outpatient YANELY BRUCE [id number] [facility] 2023-04-04 00:00:00 2023-04-04 00:00:00 Outpatient YANELY BRUCE [id number] [facility] 2023-03-29 00:00:00 2023-03-29 00:00:00 Outpatient YANELY BRUCE [id number] [facility] 2023-03-27 00:00:00 2023-03-27 00:00:00 Outpatient KRYSTYNA JOHNSON YANELY BRUCE [id number] [facility] 2023-03-27 00:00:00 2023-03-27 00:00:00 Outpatient DAX PARDO YANELY YANELY [id number] [facility] 2023-03-22 13:30:00 2023-03-22 13:30:00 Outpatient LARA ROGERS YANELY BRUCE [id number] [facility] 2023-03-22 00:00:00 2023-03-22 00:00:00 Outpatient YANELY BRUCE [id number] [facility] 2023-03-22 00:00:00 2023-03-22 00:00:00 Outpatient LETHA RODRIGUEZ Y[facility]ELY BRUCE [id number] [facility] 2023-03-13 00:00:00 2023-03-13 00:00:00 Outpatient PREDAX HARRIS YANELY BRUCE [id number] [facility] 2023-03-13 00:00:00 2023-03-13 00:00:00 Outpatient LETHA RODRIGUEZ Y[facility]ELY BRUCE [id number] [facility] 2023-03-03 08:40:00 2023-03-03 08:40:00 Outpatient RUSTYLISAROGELIO YANELY BRUCE [id number] [facility] 2023-03-03 00:00:00 2023-03-03 00:00:00 Outpatient DAX PRADO YANELY BRUCE [id number] [facility] 2023-03-03 00:00:00 2023-03-03 00:00:00 Outpatient YANELY BRUCE [id number] [facility] 2023-02-26 00:00:00 2023-02-26 00:00:00 Outpatient ELIZABETH KRYSTYNA YANELY BRUCE [id number] [facility] 2023-02-22 00:00:00 2023-02-22 00:00:00 Outpatient YANELY BRUCE [id number] [facility] 2023-02-20 00:00:00 2023-02-20 00:00:00 Outpatient YANELY BRUCE [id number] [facility] 2023-02-20 00:00:00 2023-02-20 00:00:00 Outpatient PREZASDAX YANELY BRUCE [id number] [facility] 2023-02-19 00:00:00 2023-02-19 00:00:00 Outpatient CARLOS NOEL [id number] [facility] 2023-02-17 00:00:00 2023-02-17 00:00:00 Outpatient JYOTHIKIMBERLY DAX YANELY BRUCE [id number] [facility] 2023-02-10 08:10:00 2023-02-10 08:10:00 Outpatient UDTONIEVanROGELIO CAMP YANELY BRUCE [id number] [facility] 2023-02-08 00:00:00 2023-02-08 00:00:00 Outpatient DAX PRADO YANELY BRUCE [id number] [facility] 2023-02-08 00:00:00 2023-02-08 00:00:00 Outpatient DAX PRADO YANELY BRUCE [id number] [facility] 2023-02-08 00:00:00 2023-02-08 00:00:00 Outpatient YANELY BRUCE [id number] [facility] 2023-02-07 00:00:00 2023-02-07 00:00:00 Outpatient JYOTHIKIMBERLYDAX YANELY BRUCE [id number] [facility] 2023-02-02 09:00:00 2023-02-02 09:00:00 Outpatient PARRISH HALE [id number] [facility] 2023-02-02 00:00:00 2023-02-02 00:00:00 Outpatient YANELY BRUCE [id number] [facility] 2023-02-01 00:00:00 2023-02-01 00:00:00 Outpatient DAX PRADO YANELY BRUCE [id number] [facility] 2023-01-31 08:40:00 2023-01-31 08:40:00 Outpatient LAB90 YANELY BRUCE [id number] [facility] 2023-01-30 09:00:00 2023-01-30 09:00:00 Outpatient 1, OPTICAL YANELY BRUCE [id number] [facility] 2023-01-30 08:50:00 2023-01-30 08:50:00 Outpatient EDGARDOTONIEVanLISA CAMPSHUA YANELY BRUCE [id number] [facility] 2023-01-25 00:00:00 2023-01-25 00:00:00 Outpatient LETHA RODRIGUEZ [id number] [facility] 2023-01-23 09:15:00 2023-01-23 09:15:00 Outpatient DAX PRADOBOZENA BRUCE [id number] [facility] 2023-01-16 10:45:00 2023-01-16 10:45:00 Outpatient KRYSTYNA JOHNSON YANELY BRUCE [id number] [facility] 2022-12-22 00:00:00 2022-12-22 00:00:00 Outpatient LETHA RODRIGUEZ [id number] [facility] 2022-12-20 00:00:00 2022-12-20 00:00:00 Outpatient DAX PRADO YANELY BRUCE [id number] [facility] 2022-12-18 00:00:00 2022-12-18 00:00:00 Outpatient DAX PRADO YANELY BRUCE [id number] [facility] 2022-12-16 09:50:00 2022-12-16 09:50:00 Outpatient LAB90 YANELY BRUCE [id number] [facility] 2022-12-16 09:00:00 2022-12-16 09:00:00 Outpatient DAX PRADO YANELY BRUCE [id number] [facility] 2022-12-16 00:00:00 2022-12-16 00:00:00 Outpatient DAX PRADO YANELY BRUCE [id number] [facility] Jar[facility] 2022-12-09 09:10:00 2022-12-09 09:10:00 Outpatient LAB90 YANELY BRUCE [id number] [facility] Jar[facility] 2022-12-09 00:00:00 2022-12-09 00:00:00 Outpatient MD YANELY BALLARD [id number] [facility] Lu[facility] 2022-11-18 15:15:00 2022-11-18 15:15:00 Outpatient DAX PRADO YANELY BRUCE [id number] [facility] 2022-11-14 00:00:00 2022-11-14 00:00:00 Outpatient LETHA RODRIGUEZ [id number] [facility] 2022-11-09 00:00:00 2022-11-09 00:00:00 Outpatient LETHA RODRGIUEZ [id number] [facility] 2022-11-07 09:15:00 2022-11-07 09:15:00 Outpatient ELIZABETH, KRYSTYNA YANELY BRUCE [id number] [facility] 2022-10-25 00:00:00 2022-10-25 00:00:00 Outpatient ELIZABETH, KRYSTYNA YANELY BRUCE [id number] [facility] 2022-10-25 00:00:00 2022-10-25 00:00:00 Outpatient ELIZABETH, KRYSTYNA YANELY BRUCE [id number] [facility] 2022-10-19 00:00:00 2022-10-19 00:00:00 Outpatient PREZAS, DAX BRUCE [id number] [facility] 2022-10-11 00:00:00 2022-10-11 00:00:00 Outpatient PREZAS, DAX BRUCE [id number] [facility] 2022-10-07 08:10:00 2022-10-07 08:10:00 Outpatient LABKirti BRUCE [id number] [facility] 2022-10-04 00:00:00 2022-10-04 00:00:00 Outpatient PREZAS, DAX YANELY BRUCE [id number] [facility] 2022-09-19 00:00:00 2022-09-19 00:00:00 Outpatient LETHA RODRIGUEZ [id number] [facility] 2022-09-14 00:00:00 2022-09-14 00:00:00 Outpatient LETHA RODRIGUEZ [id number] [facility] 2022-08-25 00:00:00 2022-08-25 00:00:00 Outpatient ELIZABETH, KRYSTYNA YANELY BRUCE [id number] [facility] 2022-08-14 00:00:00 2022-08-14 00:00:00 Outpatient ELIZABETH, KRYSTYNA BRUCE [id number] [facility] 2022-08-04 00:00:00 2022-08-04 00:00:00 Outpatient LETHA RODRIGUEZ [id number] [facility] 2022-07-25 15:00:00 2022-07-25 15:00:00 Outpatient ROBYN CONNELLY YANELY [id number] [facility] 2022-07-22 00:00:00 2022-07-22 00:00:00 Outpatient LETHA RODRIGUEZ YANELY BRUCE [id number] [facility] 2022-07-21 14:00:00 2022-07-21 14:00:00 Outpatient ROBYN CONNELLY YANELY YANELY [id number] [facility] 2022-07-21 00:00:00 2022-07-21 00:00:00 Outpatient ROBYN CONNELLY YANELY BRUCE [id number] [facility] 2022-07-11 00:00:00 2022-07-11 00:00:00 Outpatient YANELY BRUCE [id number] [facility] 2022-07-07 00:00:00 2022-07-07 00:00:00 Outpatient YANELY BRUCE [id number] [facility] 2022-06-28 00:00:00 2022-06-28 00:00:00 Outpatient DAX PRADO YANELY BRUCE [id number] [facility] 2022-06-21 00:00:00 2022-06-21 00:00:00 Outpatient KRYSTYNA JOHNSON YANELY BRUCE [id number] [facility] 2022-06-16 08:55:00 2022-06-16 08:55:00 Outpatient HARJINDER YANELY BRUCE [id number] [facility] 2022-06-15 00:00:00 2022-06-15 00:00:00 Outpatient DAX PRADO YANELY BRUCE [id number] [facility] 2022-06-03 09:20:00 2022-06-03 09:20:00 Outpatient JANEL OJEDAUA YANELY BRUCE [id number] [facility] 2022-06-02 00:00:00 2022-06-02 00:00:00 Orders Only Doctor Unassigned, [place] [facility] 1.2.840.114 350.1.13.10 4.2.7.2.[id number] [facility] 2022-05-18 00:00:00 2022-05-18 00:00:00 Outpatient LETHA RODRIGUEZ YANELY BRUCE [id number] [facility] 2022-05-16 10:45:00 2022-05-16 10:45:00 Outpatient KRYSTYNA JOHNSON YANELY BRUCE [id number] [facility] 2022-05-11 00:00:00 2022-05-11 00:00:00 Outpatient LETHA RODRIGUEZ YANELY BRUCE [id number] [facility] 2022-05-11 00:00:00 2022-05-11 00:00:00 Outpatient YANELY BURCE [id number] [facility] 2022-05-04 09:25:00 2022-05-04 09:25:00 Outpatient BEVERLY SMITH [id number] [facility] 2022-05-04 00:00:00 2022-05-04 00:00:00 Outpatient LETHA RODRIGUEZ YANELY BRUCE [id number] [facility] 2022-05-03 00:00:00 2022-05-03 00:00:00 Orders Only Doctor Unassigned, [place] [address].840.114 350.1.13.10 4.2.7.2.[id number] [facility] 2022-04-27 00:00:00 2022-04-27 00:00:00 Orders Only Doctor Unassigned, [place] [address]840[address]114 350.1.13.10 4.2.7.2.[id number] [facility] 2022-04-22 08:50:00 2022-04-22 08:50:00 Outpatient ROGELIO OJEDA [id number] [facility] 2022-04-21 09:10:00 2022-04-21 09:10:00 Outpatient BEVERLY SMITH [id number] [facility] 2022-04-11 00:00:00 2022-04-11 00:00:00 Outpatient LETHA RODRIGUEZ YANELY BRUCE [id number] [facility] 2022-04-08 08:00:00 2022-04-08 08:00:00 Outpatient LAB90 YANELY YANELY [id number] [facility] 2022-04-08 00:00:00 2022-04-08 00:00:00 Outpatient DAX PRADO YANELY BRUCE [id number] [facility] 2022-03-11 09:10:00 2022-03-11 09:10:00 Outpatient EDGARDOROGELIO ZAPATA YANELY BRUCE [id number] [facility] 2022-03-10 09:05:00 2022-03-10 09:05:00 Outpatient TORRIE Payton YANELY BRUCE [id number] [facility] 2022-03-10 08:45:00 2022-03-10 08:45:00 Outpatient JAYASHREE DIRKEDUARDO BRUCE [id number] [facility] 2022 00:00:00 2022 00:00:00 Outpatient LETHA RODRIGUEZ YANELY BRUCE [id number] [facility] 2022-03-03 08:25:00 2022-03-03 08:25:00 Outpatient LAB90 YANELY BRUCE [id number] [facility] 2022-03-03 00:00:00 2022-03-03 00:00:00 Outpatient DAX PRADO YANELY BRUCE [id number] [facility] 2022-02-25 09:00:00 2022-02-25 09:00:00 Outpatient LETHA RODRIGUEZ YANELY BRUCE [id number] [facility] 2022-02-16 07:30:00 2022-02-16 07:30:00 Outpatient YANELY BRUCE [id number] [facility] 2022-02-10 08:15:00 2022-02-10 08:15:00 Office Visit DIRK BLANC [facility] 1.2.840.114 350.1.13.13 1.2.7.2.686 [id number] [facility] 2022-02-09 06:30:00 2022-02-09 06:30:00 Outpatient DIRK BLANC YANELY BRUCE [id number] [facility] 2022-02-09 00:00:00 2022-02-09 00:00:00 Outpatient NAOMY CONN YANELY BRUCE [id number] [facility] 2022-02-03 10:00:00 2022-02-03 10:00:00 Outpatient COVID-PFIZE Jose CARMICHAELANA LAURA YANELY BRUCE [id number] [facility] 2022-02-03 09:00:00 2022-02-03 09:15:00 Office Visit Letha Rodriguez [place] 1.840.114 350.1.13.13 1.2.7.2.686 [id number] [facility] [facility] 2022-02-03 00:00:00 2022-02-03 00:00:00 Outpatient CARLOS NOEL [id number] [facility] 2022-01-28 08:00:00 2022-01-28 08:10:00 Office Visit Rogelio zapata [facility] 1.840.114 350.1.13.13 1.2.7.2.686 [id number] [facility] 2022-01-28 07:50:00 2022-01-28 07:50:00 Outpatient TOMOGRAPHY, FBMDC YANELY BRUCE [id number] [facility] 2022-01-25 08:30:00 2022-01-25 08:30:00 Outpatient 1, OPTICAL YANELY BRUCE [id number] [facility] 2022-01-25 08:15:00 2022-01-25 08:30:00 Office Visit Jayashree Dirk [facility] 1..840.114 350.1.13.13 1.2.7.2.686 [id number] [facility] [facility] 2022-01-24 11:25:00 2022-01-24 11:25:00 Outpatient LAB47 YANELY YANELY [id number] [facility] 2022-01-24 10:45:00 2022-01-24 11:00:00 Office Visit Krystyna Johnson [facility] 1.2.840.114 350.1.13.13 1.2.7.2.686 [id number] [facility] [facility] 2022-01-19 08:45:00 2022-01-19 08:45:00 Outpatient LAB47 YANELY BRUCE [id number] [facility] 2022-01-19 08:15:00 2022-01-19 08:15:00 Office Visit CARLOS NOEL 1.2.840.114 350.1.13.13 1.2.7.2.686 [id number] [facility] 2022-01-04 08:00:00 2022-01-04 08:15:00 Office Visit Dirk Blanc [facility] 1.2.840.114 350.1.13.13 1.2.7.2.686 [id number] [facility] 2022-01-04 08:00:00 2022-01-04 08:00:00 Outpatient DIRK BLANC YANELY BRUCE [id number] [facility] 2022-01-04 00:00:00 2022-01-04 00:00:00 Outpatient JAYASHREEDIRK Koehler YANELY BRUCE [id number] [facility] 2022-01-03 07:30:00 2022-01-03 07:30:00 Outpatient JAYASHREEDIRK Koehler YANELY BRUCE [id number] [facility] 2022-01-03 00:00:00 2022-01-03 00:00:00 Outpatient NATALIE BACA [id number] [facility] 2021-12-24 10:00:00 2021-12-24 10:00:00 Education TUCKER HAYNES 1.2.840.114 350.1.13.13 1.2.7.2.686 [id number] [facility] [facility] 2021-12-24 00:00:00 2021-12-24 00:00:00 Outpatient LAWANDA BROWN YANELY [id number] [facility] 2021-12-21 09:00:00 2021-12-21 09:30:00 Office Visit Lawanda [facility] 1.2.840.114 350.1.13.13 1.2.7.2.686 [id number] [facility] [facility] 2021-12-20 00:00:00 2021-12-20 00:00:00 Outpatient LETHA RODRIGUEZ YANELY BRUEC [id number] Yanely [facility] 2021-12-17 08:00:00 2021-12-17 08:10:00 Office Visit Rusty [facility] [place] 1.2.840.114 350.1.13.13 1.2.7.2.686 [id number] Yanely [facility] 2021-12-08 00:00:00 2021-12-08 00:00:00 Outpatient LETHA RODRIGUEZ YANELY BRUCE [id number] [facility] 2021-11-23 00:00:00 2021-11-23 00:00:00 Outpatient LETHA RODRIGUEZ YANELY BRUCE [id number] [facility] 2021-11-12 10:30:00 2021-11-12 10:40:00 Office Visit Rusty [facility] [place] 1.2.840.114 350.1.13.13 1.2.7.2.686 [id number] [facility] 2021-11-12 08:30:00 2021-11-12 08:30:00 Outpatient ROGELIO OJEDA [id number] [facility] 2021-11-12 08:10:00 2021-11-12 08:10:00 Outpatient ROGELIO OJEDA [id number] [facility] 2021-11-10 00:00:00 2021-11-10 00:00:00 Outpatient KRYSTYNA JOHNSON YANELY BRUCE [id number] [facility] 2021-11-10 00:00:00 2021-11-10 00:00:00 Outpatient LETHA RODRIGUEZ YANELY BRUCE [id number] [facility] 2021-11-05 08:00:00 2021-11-05 08:00:00 Outpatient JAVIERLAWANDA SHERIDAN YANELY BRUCE [id number] [facility] 2021-11-04 00:00:00 2021-11-04 00:00:00 Outpatient KRYSTYNA JOHNSON YANELY BRUCE [id number] [facility] 2021-10-29 08:45:00 2021-10-29 09:00:00 Office Visit Dirk Blanc [facility] 1..840.114 350.1.13.13 1.2.7.2.686 [id number] [facility] 2021-10-20 00:00:00 2021-10-20 00:00:00 Outpatient LETHA RODRIGUEZ YANELY BRUCE [id number] [facility] 2021-10-20 00:00:00 2021-10-20 00:00:00 Outpatient LETHA RODRIGUEZ YANELY BRUCE [id number] [facility] 2021-09-27 00:00:00 2021-09-27 00:00:00 Domenica Bonilla [facility] 1..840.114 350.1.13.10 4.2.7.2.[id number] [facility] 2021-09-24 08:25:00 2021-09-24 08:25:00 Outpatient TOMOGRAPHY, [facility] YANELY BRUCE [id number] [facility] 2021-09-24 08:10:00 2021-09-24 08:20:00 Office Visit Rogelio Ojeda [facility] 1..840.114 350.1.13.13 1.2.7.2.686 [id number] Yanely Jarrett 2021-09-23 09:30:00 2021-09-23 09:30:00 Outpatient LAWANDA BROWN YANELY [id number] [facility] 2021-09-15 00:00:00 2021-09-15 00:00:00 Outpatient LETHA RODRIGUEZ YANELY BRUCE [id number] [facility] 2021-09-09 00:00:00 2021-09-09 00:00:00 Outpatient LETHA RODRIGUEZBOZENA BRUCE [id number] [facility] 2021-08-27 00:00:00 2021-08-27 00:00:00 Outpatient HECHELLE BRANCH YANELY BRUCE [id number] [facility] 2021-08-25 09:05:00 2021-08-25 09:05:00 Outpatient LAB90 YANELY YANELY [id number] [facility] 2021-08-25 08:00:00 2021-08-25 08:45:00 Office Visit Letha Rodriguez [facility] 1.2.840.114 350.1.13.13 1.2.7.2.686 [id number] [facility] 2021-08-17 10:00:00 2021-08-17 10:00:00 Outpatient LAB90 YANELY YANELY [id number] [facility] 2021-08-17 09:25:00 2021-08-17 09:25:00 Outpatient LAB90 YANELY YANELY [id number] [facility] 2021-08-17 00:00:00 2021-08-17 00:00:00 Refill Domenica Shukla [facility] 1.2.840.114 350.1.13.10 4.2.7.2.[id number] [facility] 2021-08-16 00:00:00 2021-08-16 00:00:00 Refill Domenica Shukla [facility] 1.2.840.114 350.1.13.10 4.2.7.2.[id number] [facility] 2021-08-13 09:40:00 2021-08-13 09:50:00 Office Visit Rusty [facility] [place] 1.2840.114 350.1.13.13 1.2.7.2.686 [id number] [facility] 2021-08-09 10:45:00 2021-08-09 11:00:00 Office Visit ElizabethKrystyna [facility] 1.2840.114 350.1.13.13 1.2.7.2.686 [id number] [facility] 2021-08-03 00:00:00 2021-08-03 00:00:00 Outpatient CARLOS NOEL [id number] [facility] 2021-08-03 00:00:00 2021-08-03 00:00:00 Outpatient LETHA RODRIGUEZ [id number] [facility] 2021-08-03 00:00:00 2021-08-03 00:00:00 Outpatient ELIZABETHKRYSTYNA YANELY BRUCE [id number] [facility] 2021-08-03 00:00:00 2021-08-03 00:00:00 Outpatient LETHA RODRIGUEZ [id number] [facility] 2021-08-03 00:00:00 2021-08-03 00:00:00 Domenica Bonilla [facility] 1.2840.114 350.1.13.10 4.2.7.2.[id number] [facility] 2021-07-02 08:30:00 2021-07-02 08:40:00 Office Visit Rusty [facility] & DIAGNOS [facility] [place] 1.2840.114 350.1.13.13 [id number] [id number] [facility] 2021-06-23 08:20:00 2021-06-23 08:20:00 Outpatient LAB90 YANELY BRUCE [id number] [facility] 2021-06-22 11:20:00 2021-06-22 11:20:00 Outpatient DOMENICA ANDRADE [facility] [id number] [facility] 2021-06-14 10:15:00 2021-06-14 10:15:00 Outpatient ELIZABETH KRYSTYNA Y[facility]ELY BRUCE [id number] [facility] 2021-05-21 08:10:00 2021-05-21 08:20:00 [facility] [id number] 350.1.13.13 [id number] [id number] [facility] Luiza 2021-05-12 00:00:00 2021-05-12 00:00:00 Outpatient CARLOS NOEL [id number] [facility] 2021-05-11 09:00:00 2021-05-11 09:00:00 Outpatient CARLOS NOEL [id number] [facility] 2021-05-11 00:00:00 2021-05-11 00:00:00 Outpatient LETHA RODRIGUEZ [id number] [facility] 2021-05-06 15:15:00 2021-05-06 15:15:00 Outpatient TRED45 YANELY BRUCE [id number] [facility] 2021-05-06 15:00:00 2021-05-06 15:00:00 Outpatient SWAB, FBMDC YANELY BRUCE [id number] [facility] ybemmanuel 2021-05-06 15:00:00 2021-05-06 15:00:00 Outpatient PQK45-RJV YANELY BRUCE [id number] [facility] 2021-05-05 00:00:00 2021-05-05 00:00:00 Outpatient CARLOS NOEL [id number] [facility] 2021-05-03 00:00:00 2021-05-03 00:00:00 Outpatient YANELY BRUCE [id number] [facility] 2021-05-03 00:00:00 2021-05-03 00:00:00 Outpatient ADRIEN GUPTAA [facility] [id number] [facility] 2021-04-23 08:00:00 2021-04-23 08:10:00 Office Visit Lisa Ojedashua [facility] & [facility]AGNOSTI [facility] [place] [id number] 350.1.13.13 [id number] [id number] [facility] 2021-04-19 00:00:00 2021-04-19 00:00:00 Outpatient MD YANELY BALLARD [id number] [facility] 2021-04-08 14:00:00 2021-04-08 14:00:00 Outpatient [facility]ELY BRUCE [id number] [facility] 2021-04-06 00:00:00 2021-04-06 00:00:00 Outpatient LETHA RODRIGUEZ [id number] [facility] 2021-04-01 00:00:00 2021-04-01 00:00:00 Outpatient NARCISO GUPTA [id number] [facility] 2021-03-19 09:01:05 2021-03-19 09:11:05 Office Visit EdgardoLisa zapatashua [facility] & DIAGNOSTI C [place] [id number] 350.1.13.13 1.2.7.2.686 [id number] [facility] 2021-03-18 00:00:00 2021-03-18 00:00:00 Outpatient LAWANDA BROWN [id number] [facility] 2021-03-17 00:00:00 2021-03-17 00:00:00 Outpatient KRYSTYNA JOHNSON [id number] [facility] 2021-03-16 00:00:00 2021-03-16 00:00:00 Outpatient KRYSTYAN JOHNSON [id number] [facility] 2021-03-15 14:42:50 2021-03-15 15:12:50 Office Visit Krystyna Johnson 1.2840.114 350.1.13.13 1.2.7.2.686 [id number] [facility] 2021-02-26 00:00:00 2021-02-26 00:00:00 Outpatient CARLOS NOEL [id number] [facility] 2021-02-22 00:00:00 2021-02-22 00:00:00 [facility]phone [facility] 1.2840.114 350.1.13.10 4.2.7.2.[id number] [facility] 2021-02-22 00:00:00 2021-02-22 00:00:00 Orders Only Doctor Unassigned, [place] [facility] 1.2840.114 350.1.13.10 4.2.7.2.[id number] [facility] 2021-02-19 07:47:03 2021-02-19 08:22:01 Telemedici Lawanda Ferguson OPHIR 1.2840.114 350.1.13.13 1.2.7.2.686 [id number] [facility] 2021-02-18 00:00:00 2021-02-18 00:00:00 Outpatient LETHA RODRIGUEZ [id number] [facility] 2021-02-18 00:00:00 2021-02-18 00:00:00 Outpatient KAYLIE NICOLE [id number] [facility] 2021-02-18 00:00:00 2021-02-18 00:00:00 Outpatient CARLOS NOEL [id number] [facility] 2021-02-17 15:45:00 2021-02-17 15:45:00 Outpatient LAB47 YANELY BRUCE [id number] [facility] Ahmadiemmanuel 2021-02-17 14:40:10 2021-02-17 14:55:10 Office Visit Carlos Nole [id number] 350.1.13.13 [id number] [id number] [facility] 2021-02-17 14:30:00 2021-02-17 14:30:00 Outpatient TUCKER HAYNES [id number] [facility] 2021-02-17 00:00:00 2021-02-17 00:00:00 Outpatient CARLOS NOEL [id number] [facility] 2021-02-12 13:22:59 2021-02-12 13:32:59 Office Visit Rogelio Ojeda [facility] [id number] 350.1.13.13 [id number] [id number] [facility] 2021-02-09 13:20:00 2021-02-09 13:20:00 Outpatient DIANA MARROQUIN [id number] [facility] 2021-01-12 00:00:00 2021-01-12 00:00:00 Outpatient LETHA RODRIGUEZ [id number] [facility] 2021-01-05 08:10:00 2021-01-05 08:10:00 Outpatient LAB90 YANELY BRUCE [id number] [facility] 2020-12-28 13:30:00 2020-12-28 13:30:00 Outpatient LETHA RODRIGUEZ [id number] [facility] 2020-08-07 13:05:00 2020-08-07 13:05:[address] [facility] [id number] [facility] 2020-06-25 16:00:00 2020-06-25 16:00:00 Outpatient GERARDO MCKEON [facility] [id number] [facility] 2020-06-19 11:13:36 2020-06-19 12:10:35 [facility] [id number] 350.1.13.10 [id number] [facility] 2020-06-19 11:20:00 2020-06-19 11:20:00 Outpatient R DOMENICA SHUKLA [facility] [id number] [facility] 2019-10-23 10:20:00 2019-10-23 10:20:00 [facility] [id number] [facility] Results Test Description Test Time Test Comments Results Result Co mments Source Yanely Jarrett - ExternalREAGENT STRIP/BLOOD [id number] 16:57:00* Test Item Value Reference Range Interpretation Comme [facility] BLOOD SUGAR (test code = 190696) 353 mg/dL 65-99 A Lab Interpretation (test cod e = [id number]) Abnormal Yanely JarrettREAGENT STRIP/BLOOD [id number] 20:00:00* Test Item Value Reference Range Interpretation Comme [facility] BLOOD SUGAR (test code = 059551) 261 mg/dL 65-99 A Lab Interpretation (test cod e = [id number]) Abnormal Yanely Jarrett Notes Date/Time Note Provider Source 2024-07-04 10:08:22 Chief Complaint Patient presents with Physical Fasting for labs. Needs documentation about him needing a wheelchair Andreia Vasques LVN [facility] YanelyLuiza [facility] 2023-06-15 11:41:58 Chief Complaint Patient presents with Hand Numbness Numbness of the L hand/wrist for almost a week. Pt states that this started right after Dialysis. Taking ibuprofen when he can for the pain [facility] YanelyLuiza [facility] 2023-05-30 08:09:44 Chief Complaint Patient presents with Follow-Up Visit 4 week follow up Andreia Vasques LVN [facility] 2023-02-02 09:14:22 Formatting of this n ote is different from the original. Chief Complaint Patient presents with Sinus Problem [facility]
--- NOTE | 2025-03-03 17:10 | EDPHYS ---
Physician Documentation [facility] Name: Jose Gonzales Age: 59 yrs Sex: Male : 1965 Arrival Date: 03/03/2025 Time: 16:43 Bed IW1 Private MD: ED Physician Osmin Luciano HPI: 03/03 17:29 This 59 yrs old Male presents to ER via Wheelchair with complaints of High Blood Sugar. sb4 17:29 Patient states that he went to dialysis today and had an episode of dizziness before sb4 they started. They checked his blood sugar and it was 330. Patient states that he ate breakfast this morning and did not take his insulin. He denies any nausea, vomiting, blurry vision, headache. He states he is already feeling better after drinking some water. His insulin is at home. Historical: - Allergies: 17:05 bleach; dd2 - PMHx: 17:05 chronic kidney disease; Congestive heart failure; diabetes mellitus; Dialysis; Enlarged dd2 Heart; Hypertensive disorder; PERIPHERAL NEUROPATHY; Sleep Apnea; - PSHx: 17:05 Appendectomy; cataracts; knee surgery; dd2 - Immunization history:: Adult Immunizations up to date. - Infectious Disease History:: Denies. - Social history:: Smoking status: Patient denies any tobacco usage or history of. ROS: 17:29 Constitutional: Negative for fever, chills, and weight loss, sb4 17:29 All other systems are negative, Exam: 17:29 Head/Face: Normocephalic, atraumatic. Eyes: Extra-ocular motions intact. Periorbital sb4 areas with no swelling, redness, or edema. ENT: Mucous membranes moist. Cardiovascular: Regular rate and rhythm with a normal S1 and S2. Respiratory: No increased work of breathing, no retractions or nasal flaring. Abdomen/GI: Soft, non-tender, no distension. Skin: Warm, dry with normal turgor. Normal color with no rashes, no lesions, and no evidence of cellulitis. 17:29 Constitutional: The patient appears in no acute distress, alert, awake, obese, Vital Signs: 16:58 BP 182 / 97; Pulse 73; Resp 17; Temp 98.1; Pulse Ox 100% on R/A; Pain 0/10; dd2 17:15 BP 179 / 91; Pulse 76; Resp 17; Pulse Ox 100% on R/A; dd2 16:58 Pain Scale: Adult dd2 MDM: 16:47 Medical Screening Exam initiated sb4 17:29 Data reviewed: vital signs, nurses notes, lab test result(s), and as a result, I will sb4 discharge patient. Test considered but Not performed: Labs: patient feels fine, nontoxic appearing, stable vitals, low suspicion for DKA. Historians other than the Patient: Spouse/Significant Other: . Counseling: I had a detailed discussion with the patient and/or guardian regarding the historical points, exam findings, and any diagnostic results supporting the discharge/admit diagnosis, lab results, the need for outpatient follow up, for definitive care, to return to the emergency department if symptoms worsen or persist or if there are any questions or concerns that arise at home. 03/03 17:16 Order name: Glucose, Ancillary Testing; Complete Time: 17:28 EDMS Administered Medications: No medications were administered Point of Care Testing: Blood Glucose: 17:07 Blood Glucose: 327 mg/dL; dd2 Ranges: Critical Glucose Levels:Adult <50 mg/dl or >400 mg/dl <40 mg/dl or >180 mg/dl Disposition Summary: 03/03/25 17:09 Discharge Ordered Notes: Location: Home sb4 Problem: new sb4 Symptoms: are unchanged sb4 Condition: Stable sb4 Diagnosis - Type 2 diabetes mellitus with hyperglycemia sb4 Followup: sb4 - With: Emergency Department - When: As needed - Reason: Trouble breathing, Worsening of condition Discharge Instructions: - Discharge Summary Sheet sb4 - Hyperglycemia sb4 - Blood Glucose Monitoring, Adult sb4 Forms: - Work release form ss - Patient Portal Instructions sb4 - Leadership Thank You Letter sb4 Signatures: Billie Ayala PA-C PA-C sb4 JOANNE ORDAZ, RN RN dd2
--- NOTE | 2025-03-03 17:10 | ER ---
Nurse's Notes [facility] Name: Jose Gonzales Age: 59 yrs Sex: Male : 1965 Arrival Date: 03/03/2025 Time: 16:43 Bed IW1 Private MD: Diagnosis: Type 2 diabetes mellitus with hyperglycemia Presentation: 03/03 16:58 Chief complaint: Patient states: HE WAS AT DIALYSIS AND CHECKED BGS 333, WAS TOLD HE dd2 NEEDED TO COME TO THE ER TO BE CHECKED OUT. PT DENIES ANY SYMPTOMS. Coronavirus screen: At this time, the client does not indicate any symptoms associated with coronavirus-19. Ebola Screen: No symptoms or risks identified at this time. Initial Sepsis Screen: Does the patient meet any 2 criteria? No. Patient's initial sepsis screen is negative. Does the patient have a suspected source of infection? No. Patient's initial sepsis screen is negative. Risk Assessment: Do you want to hurt yourself or someone else? Patient reports no desire to harm self or others. Onset of symptoms was March 03, 2025. 16:58 Method Of Arrival: Wheelchair dd2 16:58 Acuity: ANDREW 4 dd2 Triage Assessment: 17:05 General: Appears in no apparent distress. comfortable, Behavior is calm, cooperative, dd2 appropriate for age. Pain: Denies pain. EENT: No deficits noted. No signs and/or symptoms were reported regarding the EENT system. Neuro: No deficits noted. Cardiovascular: No deficits noted. Respiratory: No deficits noted. GI: No deficits noted. No signs and/or symptoms were reported involving the gastrointestinal system. : No deficits noted. No signs and/or symptoms were reported regarding the genitourinary system. Derm: No deficits noted. No signs and/or symptoms reported regarding the dermatologic system. Musculoskeletal: No deficits noted. No signs and/or symptoms reported regarding the musculoskeletal system. Historical: - Allergies: 17:05 bleach; dd2 - PMHx: 17:05 chronic kidney disease; Congestive heart failure; diabetes mellitus; Dialysis; Enlarged dd2 Heart; Hypertensive disorder; PERIPHERAL NEUROPATHY; Sleep Apnea; - PSHx: 17:05 Appendectomy; cataracts; knee surgery; dd2 - Immunization history:: Adult Immunizations up to date. - Infectious Disease History:: Denies. - Social history:: Smoking status: Patient denies any tobacco usage or history of. Screenin:07 [facility] ED Fall Risk Assessment (Adult) History of falling in the last 3 months, dd2 including since admission No falls in past 3 months (0 pts) Confusion or Disorientation No (0 pts) Intoxicated or Sedated No (0 pts) Impaired Gait No (0 pts) Mobility Assist Device Used Yes (1 pt) Altered Elimination Yes (1 pt) Score/Fall Risk Level 0 - 2 = Low Risk Oriented to surroundings, Maintained a safe environment, Educated pt \T\ family on fall prevention, incl call for assistance when getting out of bed, Assessed \T\ reinforced patient's understanding of fall precautions, Hourly rounding (assess needs \T\ fall precautionary measures) done. Abuse screen: Denies threats or abuse. Denies injuries from another. Nutritional screening: On diabetic diet, renal diet. Tuberculosis screening: No symptoms or risk factors identified. Assessment: 17:06 Reassessment: SEE TRIAGE ASSESSMENT. dd2 Vital Signs: 16:58 BP 182 / 97; Pulse 73; Resp 17; Temp 98.1; Pulse Ox 100% on R/A; Pain 0/10; dd2 17:15 BP 179 / 91; Pulse 76; Resp 17; Pulse Ox 100% on R/A; dd2 16:58 Pain Scale: Adult dd2 ED Course: 16:46 Patient arrived in ED. im 16:46 Billie Ayala PA-C is PHCP. sb4 16:46 Osmin Luciano MD is Attending Physician. sb4 17:05 Triage completed. dd2 17:05 Arm band placed on right wrist. dd2 17:06 No provider procedures requiring assistance completed. Patient did not have IV access dd2 during this emergency room visit. Patient maintains SpO2 saturation greater than 95% on room air. 17:07 Patient has correct armband on for positive identification. Client placed on continuous dd2 cardiac and pulse oximetry monitoring. NIBP monitoring applied. Verbal reassurance given. 17:16 Provided Education on: D/C EDUCATION. dd2 Administered Medications: No medications were administered Medication: 17:07 VIS not applicable for this client. dd2 Point of Care Testing: Blood Glucose: 17:07 Blood Glucose: 327 mg/dL; dd2 Ranges: Outcome: 17:09 Discharge ordered by . sb4 17:15 Discharged to home via wheelchair, dd2 17:15 Condition: good 17:15 Discharge instructions given to patient, significant other, Instructed on discharge instructions, follow up and referral plans. medication usage, Demonstrated understanding of instructions, follow-up care, medications, 17:16 Patient left the ED. dd2 Signatures: Billie Ayala PA-C PAKristina sb4 Felicita Garrett DIANA RN RN dd2
[2025-03-03 17:19] VITALS: TEMP 98.1; O2SAT 100
[2025-03-03 17:20] VITALS: BP 179/91
== END 2025-03-03 17:16 | disposition home or self-care (01) ==
LOC: ER 16:43
DX: E11.65 Type 2 diabetes mellitus with hyperglycemia (principal)
CPT/HCPCS: 82947; 99283

== ENCOUNTER 2025-04-04 08:46 | Day surgery (SDC) | payer OTHER ==
[2025-04-02 16:21] LABS: Absolute Lymphocytes (CBC) 1.4 K/uL (0.7-4.9); Hematocrit 32.9 % (39.6-49.0); Hemoglobin 10.5 g/dL (13.6-17.9); MCH 28.1 pg (27.0-35.0); MCHC 32.0 g/dL (32.0-36.0); MCV 87.9 fL (80-100); MPV 7.5 fL (7.6-11.3); Nucleated RBC Absolute Count 0.0 (0-0); Nucleated Red Blood Cells % 0.0 % (0-0); RBC Red Blood Cell Count 3.74 M/uL (4.33-5.43); White Blood Count 8.20 thou/uL (4.3-10.9)
[2025-04-02 16:31] LABS: PT Prothrombin Time 14.2 SECONDS (10-13.0); PTT, Activated Partial Thromb 33.9 SECONDS (27.2-37.4); Protime INR 1.27
[2025-04-02 16:40] LABS: Anion Gap 10.0 mEq/L (5.0-15.0); BUN Blood Urea Nitrogen 54.0 mg/dL (7-18); Glucose Level 168.0 mg/dL (74-106); Potassium 4.0 mEq/L (3.5-5.1)
[2025-04-04] MEDS: NA CHLORIDE 0.9% 500 ML ONE (09:45)
[2025-04-04] MEDS: CEFAZOLIN SODIUM 2 GM/VIAL ONE (10:37)
[2025-04-04] MEDS ORDERED: KETOROLAC 30 MG/ML INJ ONE (10:43)
[2025-04-04] MEDS ORDERED: ONDANSETRON 4 MG/2 ML VIAL ONE (10:43)
[2025-04-04] MEDS ORDERED: LIDOCAINE 2% MPF 5 ML VIAL ONE (10:43)
[2025-04-04] MEDS ORDERED: MIDAZOLAM HCL 2 MG/2 ML INJ ONE (10:43)
[2025-04-04] MEDS ORDERED: FENTANYL CITR 100 MCG/2 ML ONE (10:44)
[2025-04-04] MEDS ORDERED: ROCURONIUM 50 MG/5 ML VIAL IV ONE ×2 (10:44→11:17)
[2025-04-04] MEDS ORDERED: NS 0.9% VIAL 10 ML ONE ×3 (11:04→11:17)
[2025-04-04] MEDS ORDERED: Phenylephrine HCl 10 MG/ML 1 ML VIAL ONE (11:05)
[2025-04-04] MEDS: LIDOCAINE HCL/EPINEPHRINE 20 ML MDV ONE (11:12)
[2025-04-04] MEDS ORDERED: CEFAZOLIN SODIUM 1 GM/VIAL ONE (11:17)
[2025-04-04] MEDS: HEPARIN 500 UNIT/5 ML SYR IV ONE (11:36)
--- NOTE | 2025-04-04 11:54 | P.OP ---
Preoperative diagnosis: Need for Dialysis Postoperative diagnosis: Need for Dialysis Primary procedure: Laparoscopic Placement of Peritoneal Dialysis Catheter Anesthesia: GETA + Local Estimated blood loss: <5cc Specimen: none Findings: intra-abdominal adhesions, thick abdominal wall Complications: None Implants: Nice Double Cuffed Peritoneal Dialysis Catheter Transferred to: Recovery Room Condition: Good
[2025-04-04] MEDS ORDERED: GLYCOPYRROLATE 0.2 MG/ML SYR ONE (11:59)
[2025-04-04] MEDS ORDERED: NEOSTIGMINE 1 MG/ML -10 ML VIAL ONE (11:59)
[2025-04-04 13:59] VITALS: BP 144/66; TEMP 97.6; O2SAT 95
--- NOTE | 2025-04-04 21:16 | OP ---
Date of Procedure: 04/04/2025 Surgeon: Jerson Jimenez MD, Preoperative Diagnosis: Need for dialysis. Postoperative Diagnosis: Need for dialysis. Procedure Performed: Laparoscopic placement of peritoneal dialysis catheter. Anesthesia: General endotracheal plus local with 0.25% Marcaine. Estimated Blood Loss: 5 cc. Specimen: None. Findings: Intraabdominal adhesions noted and a thick abdominal wall was noted. Complications: None. Implants: Merit double cuffed peritoneal dialysis catheter placed in the left of midline near previo us placement of peritoneal dialysis catheter. Disposition: The patient was transferred to recovery room in good condition. Procedure In Detail: After informed consent was obtained, patient was brought to the operating room, prepped and draped in the usual sterile fashion. After adequate anesthesia was achieved, anesthetiz ed an area in the left upper quadrant down to subcutaneous tissues. A 5 mm 0-degree optical trocar w as introduced into the abdomen without incident or complication. Insufflation was obtained to 15 mmH g at this time. There was no injury to vital structures upon entry into the abdomen. Additional tro cars were placed in the left mid abdomen after I had noted significant scar tissue in the pelvis prec luding a safe placement of a peritoneal dialysis catheter. I placed a 5 mm trocar in the left mid ab domen. I used LigaSure device to take down scar tissue to allow for an appropriate placement in the deep pelvis per previous placement. I then made an incision in the previous incision on the left abd ominal wall to the left of the umbilicus area where patient had peritoneal dialysis catheter placed p reviously with good success. I then used the introducer sheath to place the introducer sheath at thi s point, aiming the catheter into the pelvis with a medial tilt of the pigtail catheter. At this poi nt, I performed dilation of the introducer sheath and placed the catheter into the pelvis deep withou t incident or complication. I then removed the introducer sheath while holding the catheter in place with the distal cuff/deep cuff in the rectorectus sheath just posterior to the anterior rectus sheat h. At this point, I brought a tunneling device onto the field, hooked it up to the catheter while I was blowing gas well and passed it around through a premark on the left abdominal wall and brought it out through this area and removed the introducer sheath. Air continued to pass quite easily at this point. A clamp was placed. I then placed a cap on the end of this area and flushed saline in and o ut without issue at all. I then packed it with heparin at this point and left the clamp in place aft er the heparin was flushed and the catheter was clear. At this point, I inspected the abdomen 1 last time and desufflated under direct vision without incident or complication. All skin incisions were then copiously irrigated and closed with interrupted manoj and a sterile dressing was placed over t op. The patient tolerated the procedure without incident or complication, transferred to PACU in goo d condition. All counts were correct at the end of the case. MELANIE/SHY Voice ID: [id number] Report ID: [id number]
== END 2025-04-04 13:34 | disposition home or self-care (01) ==
LOC: OR 08:46
PROVIDERS: ATTEND Surgery
PROC: 0WHG43Z Insertion of Infusion Device into Peritoneal Cavity, Percutaneous Endoscopic Approach (ICD-10-PCS; principal; 2025-04-04 10:45)
DX: N18.6 End stage renal disease (principal)
CPT/HCPCS: 85025; 80048; 36415; 85610; 82947 ×2; 85730; 49324; A4216 ×3; J2704; J2710; J2371; J2003; J2250; J3010; J1642; J2405; J7040; J0690; J1100; J1885